=== PATIENT | male | born 1990 | race African-American/Black ===

== ENCOUNTER 2017-10-11 15:34 | Inpatient (IN) | payer MEDICAID ==
[~2017-10-11] VITALS: Ht 160 cm; Wt 51.0 kg
[2017-10-11] VITALS (7 sets, daily range): BP systolic 133–202; BP diastolic 69–123; PULSE 115–119; RESP 17–28; TEMP 97.7–98.2; O2SAT 95–99
[~2017-10-11 15:34] MED LIST: HYDR-3800 PO; LABE200T2 PO; LEVEMIR SQ; NIFE90TA2 PO; NOVO7030P2 SQ
[2017-10-11] MEDS ORDERED: AMLO10TA2 PO (16:19)
[2017-10-11] MEDS ORDERED: FOLI400T PO (16:19)
[2017-10-11] MEDS ORDERED: FURO40TA PO (16:19)
--- NOTE | 2017-10-11 16:44 | PD ---
HPI Chief Complaint: Respiratory Symptoms Time Seen by Provider: 16:17 Travel History International Travel<30 days: Yes Contact w/Intl Traveler<30days: Yes Name of Country Traveled to: [place] Traveled to known affect area: Yes History of Present Illness HPI 27-year-old male complaining of coughing congestion shortness of breath in lower extremity swelling. Patient has history of end-stage renal disease on dialysis. Patient has history of chronic kidney disease in went to [place]. Patient started having dialysis in [place]. Patient has dialysis twice a week, Wednesday and . Patient supposed to have dialysis today. Patient denies any headache. Patient denies any chest pain. Patient denies abdominal pain. Patient denies any nausea vomiting diarrhea. Patient states that he still makes small amount of urine daily. Patient's on Lasix. Patient also has history of hypertension in diabetes. Patient's on amlodipine, insulin. PFSH Past Medical History Cancer: No Congestive Heart Failure: Yes (new per BMP) Diabetes: Yes Patient Takes Glucophage: No Diminished Hearing: No Endocrine: Yes Genitourinary: Yes (ESRD, HD ) Headaches: Yes (d/t H/A) Hypertension: Yes Neurologic: No Psychiatric: No Reproductive: No Respiratory: No Tetanus Vaccination: Unknown ?: Not Past Surgical History Other Surgery: Yes (KIDNEY BIOPSY) Social History Alcohol Use: No Tobacco Use: No Substance Use: No Allergies-Medications (Allergen,Severity, Reaction): Coded Allergies: No Known Allergies (Unverified , 05/06/17) Reported Meds & Prescriptions Reported Meds & Active Scripts Active Reported Folic Acid 0.4 Mg Tab 400 Mcg PO DAILY Furosemide 40 Mg Tab 60 Mg PO BID Amlodipine (Amlodipine Besylate) 10 Mg Tab 10 Mg PO DAILY Novolin 70-30 Inj (Insulin Human Isoph/Insulin Regular) 1,000 Unit/10 Ml Vial 30 Units SQ AM 15UNITS PM Review of Systems General / Constitutional: No: Fever Eyes: No: Visual changes HENT: No: Headaches Cardiovascular: No: Chest Pain or Discomfort Respiratory: Positive: Cough, Shortness of Breath Gastrointestinal: No: Abdominal Pain Genitourinary: No: Dysuria Musculoskeletal: No: Pain Skin: No Rash Neurologic: No: Weakness Psychiatric: No: Depression Endocrine: No: Polydipsia Hematologic/Lymphatic: No: Easy Bruising Physical Exam Narrative GENERAL: Well-nourished, well-developed patient. SKIN: Focused skin assessment warm/dry. HEAD: Normocephalic. EYES: No scleral icterus. No injection or drainage. NECK: Supple, trachea midline. No JVD or lymphadenopathy. CARDIOVASCULAR: Regular rate and rhythm without murmurs, gallops, or rubs. RESPIRATORY: Breath sounds equal bilaterally. No accessory muscle use. Patient has rhonchi diffusely bilaterally mid to low lung area. GASTROINTESTINAL: Abdomen soft, non-tender, nondistended. MUSCULOSKELETAL: Patient has +2 pitting edema lower extremity. BACK: Nontender without obvious deformity. No CVA tenderness. Neurologic exam normal. Data Data Last Documented VS Vital Signs Date Time Temp Pulse Resp B/P (MAP) Pulse Ox O2 Delivery O2 Flow Rate FiO2 10/11/17 16:26 115 17 202/123 (149) 98 Nasal Cannula 2.00 10/11/17 15:36 97.7 Orders Orders Complete Blood Count With Diff (10/11/17 16:34) Basic Metabolic Panel (Bmp) (10/11/17 16:34) Magnesium (Mg) (10/11/17 16:34) Phosphorus (Po4) (10/11/17 16:34) Chest, Single Ap (10/11/17 16:34) Iv Access Insert/Monitor (10/11/17 16:34) Ecg Monitoring (10/11/17 16:34) Oximetry (10/11/17 16:34) Labs Laboratory Tests Test 10/11/17 16:40 White Blood Count 16.5 TH/MM3 Red Blood Count 3.25 MIL/MM3 Hemoglobin 8.7 GM/DL Hematocrit 26.4 % Mean Corpuscular Volume 81.2 FL Mean Corpuscular Hemoglobin 26.8 PG Mean Corpuscular Hemoglobin Concent 33.0 % Red Cell Distribution Width 15.0 % Platelet Count 320 TH/MM3 Mean Platelet Volume 8.7 FL Neutrophils (%) (Auto) 85.3 % Lymphocytes (%) (Auto) 7.1 % Monocytes (%) (Auto) 5.8 % Eosinophils (%) (Auto) 0.8 % Basophils (%) (Auto) 1.0 % Neutrophils # (Auto) 14.0 TH/MM3 Lymphocytes # (Auto) 1.2 TH/MM3 Monocytes # (Auto) 1.0 TH/MM3 Eosinophils # (Auto) 0.1 TH/MM3 Basophils # (Auto) 0.2 TH/MM3 CBC Comment AUTO DIFF Differential Comment AUTO DIFF CONFIRMED Platelet Estimate NORMAL Platelet Morphology Comment NORMAL Ovalocytes 2+ Keratocytes OCC Blood Urea Nitrogen 68 MG/DL Creatinine 12.37 MG/DL Random Glucose 392 MG/DL Calcium Level 8.8 MG/DL Phosphorus Level 3.3 MG/DL Magnesium Level 2.3 MG/DL Sodium Level 131 MEQ/L Potassium Level 4.3 MEQ/L Chloride Level 98 MEQ/L Carbon Dioxide Level 20.8 MEQ/L Anion Gap 12 MEQ/L Estimat Glomerular Filtration Rate 6 ML/MIN MDM Medical Decision Making Medical Screen Exam Complete: Yes Emergency Medical Condition: Yes Interpretation(s) Last Impressions Chest X-Ray 10/11/17 1634 Signed Impressions: Service Date/Time: Wednesday, October 11, 2017 17:01 - CONCLUSION: Cardiomegaly with moderate fluid overload. Kevan Lenz MD FACR Differential Diagnosis Differential diagnosis including pulmonary edema, bronchitis, pneumonia, Narrative Course 27-year-old male complains of coughing shortness of breath and lower extremity edema. History of end-stage renal disease on dialysis. Patient supposed to have dialysis today. Micky Quinones MD Oct 11, 2017 16:44
[2017-10-11 17:09] LABS: BASOPHIL # 0.2 TH/MM3 (0-0.2); EOSINOPHIL # 0.1 TH/MM3 (0-0.4); EOSINOPHIL % 0.8 % (0.0-4.0); HEMATOCRIT 26.4 % (39.0-51.0); HEMOGLOBIN 8.7 GM/DL (13.0-17.0); LYMPH % 7.1 % (9.0-44.0); LYMPHOCYTE # 1.2 TH/MM3 (1.0-4.8); MEAN CELL VOLUME 81.2 FL (80.0-100.0); MEAN CORPUSCULAR HEMOGLOBIN 26.8 PG (27.0-34.0); MEAN PLATELET VOLUME 8.7 FL (7.0-11.0); MONO % 5.8 % (0.0-8.0); NEUT % 85.3 % (16.0-70.0); PLATELET COUNT 320 TH/MM3 (150-450); RED BLOOD COUNT 3.25 MIL/MM3 (4.50-5.90); WHITE BLOOD COUNT 16.5 TH/MM3 (4.0-11.0)
--- NOTE | 2017-10-11 17:20 | RADRPT ---
EXAM DATE/TIME: 10/11/2017 17:01 [place] COMPARISON: CHEST SINGLE AP, April 20, 2017, 10:16. INDICATIONS : Short of breath MEDICAL HISTORY : Hypertension. Renal failure, chronic. Diabetes SURGICAL HISTORY : Infusaport ENCOUNTER: Initial ACUITY: 1 day PAIN SCORE: 0/10 LOCATION: Bilateral chest FINDINGS: Dialysis catheter in good position. Cardiomegaly with diffuse interstitial changes throughout both l ungs. No pleural effusion or pneumothorax. CONCLUSION: Cardiomegaly with moderate fluid overload. Kevan Lenz MD FACR on October 11, 2017 at 17:18 Board Certified Radiologist. This report was verified electronically.
[2017-10-11 17:48] LABS: BICARBONATE 20.8 MEQ/L (21.0-32.0); CALCIUM 8.8 MG/DL (8.5-10.1); MAGNESIUM 2.3 MG/DL (1.5-2.5); PHOSPHORUS 3.3 MG/DL (2.5-4.9)
[2017-10-11 17:52] LABS: CREATININE 12.37 MG/DL (0.60-1.30)
[2017-10-11 18:14] LABS: KERATOCYTES OCC (NORMAL)
[2017-10-11 18:16] LABS: OVALOCYTES 2+ (NORMAL)
[2017-10-11] MEDS ORDERED: hydrALAZINE HCL 20 MG/ML VIAL IV PUSH ONE (19:00)
[2017-10-11] MEDS ORDERED: SODIUM CHLOR 0.9% 1000 ML INJ 1,000 ML OTHER PRN ×2 (19:05)
[2017-10-11] MEDS ORDERED: SODIUM CHLOR 0.9% 1000 ML INJ 1,000 ML IV PRN (19:05)
[2017-10-11] MEDS ORDERED: ALBUMIN 25% INJ 100 ML IV PRN (19:15)
[2017-10-11] MEDS ORDERED: MANNITOL 12.5 GM/50 ML VIAL IV PRN (19:15)
[2017-10-11] MEDS ORDERED: HEPARIN SODIUM - IV 10,000 UNITS/10 ML VIAL IV FLUSH PRN ×2 (19:15)
[2017-10-11] MEDS ORDERED: GELATIN 12 MM/7 MM FOAM TOP PRN (19:15)
[2017-10-11] MEDS ORDERED: ACETAMINOPHEN 325 MG TAB PO PRN ×2 (19:15→19:30)
[2017-10-11] MEDS ORDERED: SODIUM CHLORIDE 0.9% FLUSH 10 ML FLUSH IV FLUSH PRN (19:15)
[2017-10-11] MEDS ORDERED: NITROGLYCERIN 0.4 MG SL 25 TABS/BTL SL PRN (19:15)
[2017-10-11] MEDS ORDERED: diphenhydrAMINE HCL 25 MG CAP PO PRN (19:15)
[2017-10-11] MEDS ORDERED: DEXTROSE 50% IN WATER 50 ML VIAL(D50) IV PUSH PRN (19:30)
[2017-10-11] MEDS ORDERED: GLUCAGON 1 MG/ML VIAL OTHER PRN (19:30)
[2017-10-11] MEDS ORDERED: NALOXONE HCL 0.4 MG/ML AMP IV PUSH PRN (19:30)
[2017-10-11] MEDS: FUROSEMIDE 20 MG TAB PO SCH (20:15)
[2017-10-11] MEDS ORDERED: CHLORHEXIDINE GLUCONATE 2 % 1 PACK (2 CLOTHS)(extra cloths) TOPICAL PRN (21:00)
--- NOTE | 2017-10-11 21:06 | HHI.HP ---
[facility] Service [facility] Primary Care Physician No Primary Care Physician Admission Diagnosis Pulmonary edema. ESRD on dialysis. Uncontrolled hypertension Diagnoses: Travel History International Travel<30 Days: Yes Contact w/Intl Traveler <30 Da: Yes Name of Country Traveled to: [place] Traveled to Known Affected Are: Yes History of Present Illness 27-year-old male with end-stage renal disease on dialysis secondary to complications from diabetes mellitus and hypertension presents to the emergency department complaining of shortness of breath and lower extremity swelling. The patient is normally dialyzed on Mondays and . He is from [place] and just moved here on Wednesday. The patient reports that he has been feeling fatigued and nauseated. He denies fever/chills. Vital signs: Temperature 97.7 , pulse 119, respirations 20, BP 202/119, pulse ox 95% on room air. Review of Systems Denies fever or chills Denies blurry vision, otorrhea, rhinorrhea Denies sore throat, positive cough No chest pain, palpitations Positive shortness of breath, no wheezing No abdominal pain Denies constipation/diarrhea. Positive nausea/vomiting Denies muscle pain Denies focal weakness No rashes Past Family Social History Past Medical History Insulin-dependent diabetes mellitus End-stage renal disease on dialysis Hypertension Past Surgical History Renal biopsy Reported Medications Reported Meds & Active Scripts Active Reported Folic Acid 0.4 Mg Tab 400 Mcg PO DAILY Furosemide 40 Mg Tab 60 Mg PO BID Amlodipine (Amlodipine Besylate) 10 Mg Tab 10 Mg PO DAILY Novolin 70-30 Inj (Insulin Human Isoph/Insulin Regular) 1,000 Unit/10 Ml Vial 30 Units SQ AM 15UNITS PM Allergies: Coded Allergies: No Known Allergies (Unverified Allergy, Unknown, 10/11/17) Family History Negative for CAD/DM Social History Denies alcohol, tobacco and illicit drugs Physical Exam Vital Signs Vital Signs Date Time Temp Pulse Resp B/P (MAP) Pulse Ox O2 Delivery O2 Flow Rate FiO2 10/11/17 20:49 121 24 133/69 (90) 99 Nasal Cannula 2.00 10/11/17 19:17 115 28 153/97 (115) 97 Nasal Cannula 2.00 10/11/17 18:54 117 19 194/123 (146) 97 Nasal Cannula 2.00 10/11/17 16:26 115 17 202/123 (149) 98 Nasal Cannula 2.00 10/11/17 16:11 115 12 99 Nasal Cannula 2.00 10/11/17 15:36 97.7 119 20 202/119 (146) 95 Physical Exam GENERAL: male lying in bed SKIN: No rashes, ecchymoses or lesions. Cool and dry. HEAD: Atraumatic. Normocephalic. No temporal or scalp tenderness. EYES: Pupils equal round and reactive. Extraocular motions intact. No scleral icterus. No injection or drainage. ENT: Nose without bleeding, purulent drainage or septal hematoma. Throat without erythema, tonsillar hypertrophy or exudate. Uvula midline. Airway patent. NECK: Trachea midline. No JVD or lymphadenopathy. Supple, nontender, no meningeal signs. CARDIOVASCULAR: Tachycardic. Regular rhythm without murmurs, gallops, or rubs. RESPIRATORY: Clear to auscultation. Breath sounds equal bilaterally. No wheezes , rales, or rhonchi. GASTROINTESTINAL: Abdomen soft, non-tender, nondistended. No hepato-splenomegaly , or palpable masses. No guarding. MUSCULOSKELETAL: 2+ pitting edema to the midshin. No calf tenderness. NEUROLOGICAL: Awake and alert. Cranial nerves II through XII intact. Motor and sensory grossly within normal limits. Normal speech. Laboratory Laboratory Tests Test 10/11/17 16:40 White Blood Count 16.5 Red Blood Count 3.25 Hemoglobin 8.7 Hematocrit 26.4 Mean Corpuscular Volume 81.2 Mean Corpuscular Hemoglobin 26.8 Mean Corpuscular Hemoglobin Concent 33.0 Red Cell Distribution Width 15.0 Platelet Count 320 Mean Platelet Volume 8.7 Neutrophils (%) (Auto) 85.3 Lymphocytes (%) (Auto) 7.1 Monocytes (%) (Auto) 5.8 Eosinophils (%) (Auto) 0.8 Basophils (%) (Auto) 1.0 Neutrophils # (Auto) 14.0 Lymphocytes # (Auto) 1.2 Monocytes # (Auto) 1.0 Eosinophils # (Auto) 0.1 Basophils # (Auto) 0.2 CBC Comment AUTO DIFF Differential Comment AUTO DIFF CONFIRMED Platelet Estimate NORMAL Platelet Morphology Comment NORMAL Ovalocytes 2+ Keratocytes OCC Blood Urea Nitrogen 68 Creatinine 12.37 Random Glucose 392 Calcium Level 8.8 Phosphorus Level 3.3 Magnesium Level 2.3 Sodium Level 131 Potassium Level 4.3 Chloride Level 98 Carbon Dioxide Level 20.8 Anion Gap 12 Estimat Glomerular Filtration Rate 6 Result Diagram: 10/11/17 1640 10/11/17 1640 Jenifer VTE Risk Assessment Capann VTE Risk Assessment: No/Low Risk (score <= 1) Caprini Risk Assessment Model Point Value = 1 Point Value = 2 Point Value = 3 Point Value = 5 Age 41-60 Minor surgery BMI > 25 kg/m2 Swollen legs Varicose veins or History of unexplained or recurrent spontaneous Oral contraceptives or hormone replacement Sepsis (< 1 month) Serious lung disease, including pneumonia (< 1 month) Abnormal pulmonary function Acute myocardial infarction Congestive heart failure (< 1 month) History of inflammatory bowel disease Medical patient at bed rest Age 61-74 Arthroscopic surgery Major open surgery (> 45 min) Laparoscopic surgery (> 45 min) Malignancy Confined to bed (> 72 hours) Immobilizing plaster cast Central venous access Age >= 75 History of VTE Family history of VTE Factor V Leiden Prothrombin [id number] Lupus anticoagulant Anticardiolipin antibodies Elevated serum homocysteine Heparin-induced thrombocytopenia Other congenital or acquired thrombophilia Stroke (< 1 month) Elective arthroplasty Hip, pelvis, or leg fracture Acute spinal cord injury (< 1 month) Prophylaxis Regimen Total Risk Factor Score Risk Level Prophylaxis Regimen 0-1 Low Early ambulation 2 Moderate Order ONE of the following: *Sequential Compression Device (SCD) *Heparin 5000 units SQ BID 3-4 Higher Order ONE of the following medications: *Heparin 5000 units SQ TID *Enoxaparin/Lovenox 40 mg SQ daily (WT < 150 kg, CrCl > 30 mL/min) *Enoxaparin/Lovenox 30 mg SQ daily (WT < 150 kg, CrCl > 10-29 mL/min) *Enoxaparin/Lovenox 30 mg SQ BID (WT < 150 kg, CrCl > 30 mL/min) AND/OR *Sequential Compression Device (SCD) 5 or more Highest Order ONE of the following medications: *Heparin 5000 units SQ TID (Preferred with Epidurals) *Enoxaparin/Lovenox 40 mg SQ daily (WT < 150 kg, CrCl > 30 mL/min) *Enoxaparin/Lovenox 30 mg SQ daily (WT < 150 kg, CrCl > 10-29 mL/min) *Enoxaparin/Lovenox 30 mg SQ BID (WT < 150 kg, CrCl > 30 mL/min) AND *Sequential Compression Device (SCD) Assessment and Plan Assessment and Plan Assessment/plan: 1. End-stage renal disease on dialysis Patient due for dialysis today Creatinine 12.37, potassium 4.3, sodium 131 Nephrology consulted, anticipate urgent dialysis 2. Leukocytosis Chest x-ray significant for cardiomegaly with moderate fluid overload, no acute process, images reviewed by me Patient reports nonproductive cough No indications for antibiotics at this time Monitor 3. Hypertension Anticipate improvement with dialysis as patient is volume overloaded Continue home amlodipine/Lasix 4. Insulin-dependent diabetes mellitus Continue home insulin SSI Monitor blood glucose FEN Renal diet Electrolytes: as above Physician Certification 2 Midnight Certification Type: Admission for Inpatient Services Order for Inpatient Services The services are ordered in accordance with Medicare regulations or non- Medicare payer requirements, as applicable. In the case of services not specified as inpatient-only, they are appropriately provided as inpatient services in accordance with the 2-midnight benchmark. Estimated LOS (days): 2 2 days is the estimated time the patient will need to remain in the hospital, assuming treatment plan goals are met and no additional complications. Post-Hospital Plan: Not yet determined Kacey George MD Oct 11, 2017 21:06
[2017-10-11] MEDS: INSULIN ASPART SUPPLEMENTAL SCALE SQ SCH (21:34)
[2017-10-11] MEDS: SODIUM CHLORIDE 0.9% FLUSH 10 ML FLUSH IV FLUSH SCH (21:34)
[2017-10-12] VITALS (16 sets, daily range): BP systolic 149–180; BP diastolic 90–110; PULSE 94–120; RESP 12–27; TEMP 97.3–99.2; O2SAT 92–100
[2017-10-12] MEDS: GENTAMICIN SULFATE 20 MG/2 ML VIAL OTHER PRN
[2017-10-12] MEDS: HEPARIN SODIUM - IV 10,000 UNITS/10 ML VIAL PRN
[2017-10-12] MEDS: CHLORHEXIDINE GLUCONATE 2 % 1 PACK (2 CLOTHS)(taper/protocol) TOPICAL SCH (01:36)
[2017-10-12] MEDS: cloNIDine HCL 0.1 MG TAB PO ONE ×2 (02:00→02:44)
[2017-10-12] MEDS: ONDANSETRON HCL 4 MG/2 ML VIAL IVP PRN ×3 (02:12→15:46)
[2017-10-12] MEDS ORDERED: LABETALOL HCL 100 MG/20 ML VIAL IV PUSH ONE (03:00)
[2017-10-12] MEDS ORDERED: TRIMETHOBENZAMIDE INJ 200 MG/2 ML VIAL IM ONE (06:45)
[2017-10-12 07:54] LABS: AUTOMATED NEUTROPHIL # 21.7 TH/MM3 (1.8-7.7); BASOPHIL # 0.1 TH/MM3 (0-0.2); BASOPHIL % 0.5 % (0.0-2.0); EOSINOPHIL % 0.1 % (0.0-4.0); HEMATOCRIT 25.3 % (39.0-51.0); HEMOGLOBIN 8.3 GM/DL (13.0-17.0); LYMPH % 4.3 % (9.0-44.0); MEAN CELL VOLUME 81.1 FL (80.0-100.0); MEAN CORPUSCULAR HEMOGLOBIN 26.8 PG (27.0-34.0); MEAN PLATELET VOLUME 8.7 FL (7.0-11.0); MONO % 2.9 % (0.0-8.0); MONOCYTE # 0.7 TH/MM3 (0-0.9); NEUT % 92.2 % (16.0-70.0); PLATELET COUNT 341 TH/MM3 (150-450); RED BLOOD COUNT 3.12 MIL/MM3 (4.50-5.90); RED CELL DISTRIBUTION WIDTH 14.5 % (11.6-17.2); WHITE BLOOD COUNT 23.5 TH/MM3 (4.0-11.0)
[2017-10-12] MEDS: INSULIN ASPART SUPPLEMENTAL SCALE SQ SCH ×4 (07:58→20:04)
[2017-10-12] MEDS: INSULIN HUMAN NPH/R 70/30 1,000 UNITS/10 ML VIAL SQ SCH ×2 (08:00→17:45)
[2017-10-12] MEDS: SODIUM CHLORIDE 0.9% FLUSH 10 ML FLUSH IV FLUSH SCH ×2 (08:00→19:33)
[2017-10-12] MEDS ORDERED: SODIUM CHLOR 0.9% 1000 ML INJ 1,000 ML IV SCH (08:15)
[2017-10-12 08:35] LABS: BICARBONATE 27.7 MEQ/L (21.0-32.0); CALCIUM 9.1 MG/DL (8.5-10.1); CREATININE 7.9 MG/DL (0.60-1.30)
[2017-10-12] MEDS: LABETALOL HCL 100 MG/20 ML VIAL IV PUSH PRN ×2 (08:43→12:50)
--- NOTE | 2017-10-12 08:58 | HHI.PR ---
Subjective Remarks Follow up nausea/vomiting, ESRD. Patient still very nauseous. Has been vomiting. Not able to take oral meds. Objective Vitals Vital Signs Date Time Temp Pulse Resp B/P (MAP) Pulse Ox O2 Delivery O2 Flow Rate FiO2 10/12/17 04:00 99.2 106 19 168/107 (127) 97 10/12/17 00:00 98.7 120 15 165/108 (127) 100 10/11/17 23:20 99 21 10/11/17 21:00 98.2 119 24 168/107 (127) 99 10/11/17 20:49 121 24 133/69 (90) 99 Nasal Cannula 2.00 10/11/17 19:17 115 28 153/97 (115) 97 Nasal Cannula 2.00 10/11/17 18:54 117 19 194/123 (146) 97 Nasal Cannula 2.00 10/11/17 16:26 115 17 202/123 (149) 98 Nasal Cannula 2.00 10/11/17 16:11 115 12 99 Nasal Cannula 2.00 10/11/17 15:36 97.7 119 20 202/119 (146) 95 I/O 10/11/17 10/11/17 10/11/17 10/12/17 10/12/17 10/12/17 07:00 15:00 23:00 07:00 15:00 23:00 Output Total 3000 ml Balance -3000 ml Output Hemodialysis 3000 ml Result Diagram: 10/12/17 0715 10/12/17 0715 Imaging Last Impressions Chest X-Ray 10/11/17 1634 Signed Impressions: Service Date/Time: Wednesday, October 11, 2017 17:01 - CONCLUSION: Cardiomegaly with moderate fluid overload. Kevan Lenz MD FACR Objective Remarks General: No acute distress. Appears uncomfortable. Heart: Tachycardic. Lungs: Clear to auscultation bilaterally. No wheezes, rales, or rhonchi. Breathing is nonlabored. Abdomen: Soft, nontender, nondistended. Extremities: No lower extremity edema. Psych: Alert and oriented. Procedures None Urinary Catheter: No Vascular Central Line Catheter: No A/P Assessment and Plan 1. End-stage renal disease: Hemodialysis per nephrology. Patient had dialysis last night. Creatinine improving. 2. Leukocytosis: No apparent infection. Monitor labs. Possibly stress reaction. 3. Hypertension: Blood pressure remains elevated. Labetalol as needed. Patient unable to take his home medications as he is not tolerating anything by mouth. 4. Diabetes mellitus, insulin-dependent: Continue 70/30 insulin. Monitor Accu- Cheks and cover with sliding scale insulin. 5. Nausea/vomiting: Continue antiemetics. Gentle IV fluids for maintenance until able to tolerate by mouth. 6. DVT prophylaxis: Chyna, PIETRO latif. Manpreet Maldonado MD Oct 12, 2017 08:57
[2017-10-12] MEDS: FOLIC ACID 1 MG TAB PO SCH (09:00)
[2017-10-12] MEDS: FUROSEMIDE 20 MG TAB PO SCH (09:00)
--- NOTE | 2017-10-12 11:20 | PD.CONS ---
HPI Service Nephrology Consult Requested By Dr. George Reason for Consult ESRD, HD management Primary Care Physician No Primary Care Physician History of Present Illness The patient is a 27 yo [facility] male with PMHx of ESRD on HD, IDDM since age 10 & hypertension who presented to this facility on 10/11 with his mother with complaints of SOB, edema, fatigue, weakness, and nausea. Is ESRD and been receiving HD [facility] and at a facility in [place]. Last outpatient tx this past . States that he moved here on Wednesday without any dialysis arrangements. Mother claims they have been trying to get him into a local unit, but without success. He was admitted at this facility this past April with ARF and accelerated hypertension. Given his severe renal impairment, he underwent a kidney biopsy that confirmed diabetic nephropathy as well as glomerulosclerosis. He was started on HD in [place] in late August/early September. Is moving here permanently with his mother and is in need of dialysis arrangements locally. Currently, the patient is weak and fatigued. He received emergent HD last night given his pulmonary edema. BP has been quite elevated. Unable to tolerate po medications and is currently on Labetalol IV for BP control. (Lety Briggs) Review of Systems Constitutional: COMPLAINS OF: Fatigue Respiratory: COMPLAINS OF: Shortness of breath Cardiovascular: COMPLAINS OF: Lower Extremity Edema Gastrointestinal: COMPLAINS OF: Nausea, Vomiting (Lety Briggs) Past Family Social History Allergies: Coded Allergies: No Known Allergies (Unverified Allergy, Unknown, 10/11/17) Past Medical History ESRD on HD IDDM since age 10 HTN Past Surgical History Kidney biopsy April 2017 Reported Medications Folic Acid 0.4 Mg Tab 400 Mcg PO DAILY Furosemide 40 Mg Tab 60 Mg PO BID Amlodipine (Amlodipine Besylate) 10 Mg Tab 10 Mg PO DAILY Novolin 70-30 Inj (Insulin Human Isoph/Insulin Regular) 1,000 Unit/10 Ml Vial 30 Units SQ AM 15UNITS PM Active Ordered Medications Current Medications Medications (Trade) Dose Ordered Sig/Ovi Route Start Time Stop Time Status Last Admin Sodium Chloride 1,000 ml @ 0 mls/hr Q0M PRN OTHER 10/11/17 19:05 10/12/17 00:00 (Heparin Inj) 8,000 units UNSCH PRN IV FLUSH 10/11/17 19:15 (Heparin Inj) 1,000 units Q1H PRN IV FLUSH 10/11/17 19:15 Sodium Chloride 1,000 ml @ 200 mls/hr Q5H PRN IV 10/11/17 19:05 Sodium Chloride 1,000 ml @ 0 mls/hr Q0M PRN OTHER 10/11/17 19:05 (Mannitol Inj) 12.5 gm UNSCH PRN IV 10/11/17 19:15 Albumin Human 100 ml @ 60 mls/hr UNSCH PRN IV 10/11/17 19:15 (NS Flush) 5 ml UNSCH PRN IV FLUSH 10/11/17 19:15 (Heparin Inj) UNSCH PRN .XX 10/11/17 19:15 10/12/17 00:00 (Gentamicin (Dialysis) Inj) 20 mg UNSCH PRN OTHER 10/11/17 19:15 10/12/17 00:00 (Zofran Inj) 4 mg UNSCH PRN IV PUSH 10/11/17 19:15 (Tylenol) 650 mg UNSCH PRN PO 10/11/17 19:15 (Benadryl) 25 mg UNSCH PRN PO 10/11/17 19:15 (Nitrostat Sl) 0.4 mg UNSCH PRN SL 10/11/17 19:15 (Catapres) 0.1 mg UNSCH PRN PO 10/11/17 19:15 (Gelfoam 12 Mm/7 Mm Top) 1 foam UNSCH PRN TOP 10/11/17 19:15 (NS Flush) 2 ml UNSCH PRN IV FLUSH 10/11/17 19:30 (NS Flush) 2 ml BID IV FLUSH 10/11/17 21:00 10/12/17 08:00 (Tylenol) 650 mg Q4H PRN PO 10/11/17 19:30 (Zofran Inj) 4 mg Q6H PRN IVP 10/11/17 19:30 10/12/17 07:59 (Narcan Inj) 0.4 mg UNSCH PRN IV PUSH 10/11/17 19:30 (D50w (Vial) Inj) 50 ml UNSCH PRN IV PUSH 10/11/17 19:30 10/12/17 02:09 (Glucagon Inj) 1 mg UNSCH PRN OTHER 10/11/17 19:30 (NovoLOG SUPPLEMENTAL SCALE) 1 ACHS SLIDING SCALE SQ 10/11/17 21:00 10/11/17 21:34 (Norvasc) 10 mg DAILY PO 10/12/17 09:00 (Folate) 0.5 mg DAILY PO 10/12/17 09:00 (Lasix) 60 mg DAILY@0900,1800 PO 10/11/17 20:15 Future Hold 10/11/17 20:15 (NovoLIN 70/30 INJ) 15 units DAILY@0800,1700 SQ 10/12/17 08:00 Miscellaneous Information Patient in critical care unit? Ass... Q361D .XX 10/11/17 21:00 10/11/17 21:00 (Chlorhexidine 2% Cloth) 3 pack DAILY@04 TOPICAL 10/12/17 04:00 10/16/17 04:01 10/12/17 01:36 (Chlorhexidine 2% Cloth) 3 pack UNSCH PRN TOPICAL 10/11/17 21:00 10/16/17 20:57 Sodium Chloride 1,000 ml @ 42 mls/hr [id number] IV 10/12/17 08:15 (Trandate Inj) 10 mg Q4H PRN IV PUSH 10/12/17 08:15 10/12/17 08:43 Family History [place] Social History Previously lived in [place]. Claims to have moved here just this past Wednesday Denies tobacco Denies EtOH Denies illicits (Lety Briggs) Physical Exam Vital Signs Vital Signs Date Time Temp Pulse Resp B/P (MAP) Pulse Ox O2 Delivery O2 Flow Rate FiO2 10/12/17 04:00 99.2 106 19 168/107 (127) 97 10/12/17 00:00 98.7 120 15 165/108 (127) 100 10/11/17 23:20 99 21 10/11/17 21:00 98.2 119 24 168/107 (127) 99 10/11/17 20:49 121 24 133/69 (90) 99 Nasal Cannula 2.00 10/11/17 19:17 115 28 153/97 (115) 97 Nasal Cannula 2.00 10/11/17 18:54 117 19 194/123 (146) 97 Nasal Cannula 2.00 1/22/18 16:26 115 17 202/123 (149) 98 Nasal Cannula 2.00 10/11/17 16:11 115 12 99 Nasal Cannula 2.00 10/11/17 15:36 97.7 119 20 202/119 (146) 95 Physical Exam GENERAL: Laying in bed resting. Does answer questions when spoken to, but mostly leaves to mother to answer. SKIN: Warm and dry. HEAD: Atraumatic. Normocephalic. EYES: Pupils equal and round. No scleral icterus. No injection or drainage. ENT: No nasal bleeding or discharge. Mucous membranes pink and moist. NECK: Trachea midline. No JVD. RIJ VasCath present CARDIOVASCULAR: Tachycardic with regular rhythm. RESPIRATORY: No accessory muscle use. Rales present bibasilar. GASTROINTESTINAL: Abdomen soft, non-tender, nondistended. Hepatic and splenic margins not palpable. MUSCULOSKELETAL: Extremities without clubbing, cyanosis, 1+ pitting edema bipedal with trace pretibial. PSYCHIATRIC: Appropriate mood and affect; insight and judgment normal. Laboratory Laboratory Tests Test 10/11/17 16:40 10/11/17 20:45 10/12/17 07:15 White Blood Count 16.5 23.5 Red Blood Count 3.25 3.12 Hemoglobin 8.7 8.3 Hematocrit 26.4 25.3 Mean Corpuscular Volume 81.2 81.1 Mean Corpuscular Hemoglobin 26.8 26.8 Mean Corpuscular Hemoglobin Concent 33.0 33.0 Red Cell Distribution Width 15.0 14.5 Platelet Count 320 341 Mean Platelet Volume 8.7 8.7 Neutrophils (%) (Auto) 85.3 92.2 Lymphocytes (%) (Auto) 7.1 4.3 Monocytes (%) (Auto) 5.8 2.9 Eosinophils (%) (Auto) 0.8 0.1 Basophils (%) (Auto) 1.0 0.5 Neutrophils # (Auto) 14.0 21.7 Lymphocytes # (Auto) 1.2 1.0 Monocytes # (Auto) 1.0 0.7 Eosinophils # (Auto) 0.1 0.0 Basophils # (Auto) 0.2 0.1 CBC Comment AUTO DIFF DIFF FINAL Differential Comment AUTO DIFF CONFIRMED Platelet Estimate NORMAL Platelet Morphology Comment NORMAL Ovalocytes 2+ Keratocytes OCC Blood Urea Nitrogen 68 37 Creatinine 12.37 7.90 Random Glucose 392 116 Calcium Level 8.8 9.1 Phosphorus Level 3.3 Magnesium Level 2.3 Sodium Level 131 137 Potassium Level 4.3 3.6 Chloride Level 98 100 Carbon Dioxide Level 20.8 27.7 Anion Gap 12 9 Estimat Glomerular Filtration Rate 6 10 Nasal Screen MRSA (PCR) MRSA NOT DETECTED (Lety Briggs) Result Diagram: 10/12/17 0715 10/12/17 0715 Imaging Last Impressions Chest X-Ray 10/11/17 1634 Signed Impressions: Service Date/Time: Wednesday, October 11, 2017 17:01 - CONCLUSION: Cardiomegaly with moderate fluid overload. Kevan Lenz MD FACR (Lety Briggs) Assessment and Plan Problem List: (1) ESRD (end stage renal disease) on dialysis ICD Codes: N18.6 - End stage renal disease; Z99.2 - Dependence on renal dialysis Plan: Last outpatient HD 10/07. Moved to the area from [place] without dialysis plans in order. Received HD last evening with UF of 3L and appears to have tolerated tx well. Reports he only does HD 2 days per week. Does not make much urine. D/C IVF Will plan on HD tomorrow for additional fluid removal. Check iPTH, Vit D, and Phos. Dialyzing via VasCath and will need to have changed to PermCath before discharge. Elevated WBC, tachycardic. Check LA. Will check BCx as well and give empiric abx for coverage. Medications should be adjusted for the patient's ESRD. Avoid gadolinium. (2) Pulmonary edema ICD Codes: J81.1 - Chronic pulmonary edema Plan: Related to noncompliance with HD. Received HD last night HD again tomorrow. Will likely increase treatment to 3 days per week Fluid restrictions (3) IDDM (insulin dependent diabetes mellitus) ICD Codes: E11.9 - Type 2 diabetes mellitus without complications; Z79.4 - care home (current) use of insulin Plan: Management as per primary team (4) Hypertension ICD Codes: I10 - Essential (primary) hypertension Plan: Not tolerating po medications. On IV Labetalol. Will add IV Hydralazine as needed. Consider Clonidine patch (5) Leukocytosis ICD Codes: D72.829 - Elevated white blood cell count, unspecified Plan: As above, concerning for dialysis line infection. (6) Anemia ICD Codes: D64.9 - Anemia, unspecified Status: Acute Plan: Repeat CBC with iron panel. May need Epogen with HD (Lety Briggs) Assessment and Plan The exam, history, and the medical decision-making described in the above note were completed with the assistance of the PAMaryan. I reviewed and agree with the findings presented. I attest that I had a [id number] encounter with the patient on the same day, and personally performed and documented my assessment and findings in the medical record. (Alyson Cantu MD) Lety Briggs Oct 12, 2017 11:20 Alyson Cantu MD Oct 12, 2017 12:12
[2017-10-12] MEDS ORDERED: VANCOMYCIN 1 GM/200 ML INJ 200 ML IV ONE (12:30)
[2017-10-12] MEDS ORDERED: PIPERACIL-TAZO 3.375 GM PREMIX 50 ML IV ONE (13:15)
[2017-10-12] MEDS ORDERED: VANCOMYCIN 1,000 MG/NS 250 ML IV ONE ×2 (13:15)
[2017-10-12] MEDS: hydrALAZINE HCL 20 MG/ML VIAL IV PUSH PRN ×2 (14:20→20:04)
[2017-10-12] MEDS: SODIUM CHLORIDE 0.9% FLUSH 10 ML FLUSH IV FLUSH PRN (14:21)
[2017-10-12 16:22] LABS: IRON (FE) 40 MCG/DL (65-175); PHOSPHORUS 6.3 MG/DL (2.5-4.9); TOTAL IRON BINDING CAPACITY 223 MCG/DL (250-450)
[2017-10-12 16:25] LABS: FERRITIN 1043 NG/ML (26-388)
[2017-10-12] MEDS: PIPERACIL-TAZO 2.25 GM PREMIX 50 ML IV SCH (19:33)
[2017-10-12] MEDS: TRIMETHOBENZAMIDE INJ 200 MG/2 ML VIAL IM PRN (21:37)
[2017-10-13] VITALS (13 sets, daily range): BP systolic 157–174; BP diastolic 96–109; PULSE 103–116; RESP 12–21; TEMP 97.9–99; O2SAT 96–99
[2017-10-13] MEDS: hydrALAZINE HCL 20 MG/ML VIAL IV PUSH PRN ×5 (00:05→22:15)
[2017-10-13] MEDS: CHLORHEXIDINE GLUCONATE 2 % 1 PACK (2 CLOTHS)(taper/protocol) TOPICAL SCH (00:05)
[2017-10-13] MEDS ORDERED: PROCHLORPERAZINE INJ 10 MG/2 ML VIAL IV PUSH ONE (01:30)
[2017-10-13] MEDS: LABETALOL HCL 100 MG/20 ML VIAL IV PUSH PRN ×3 (03:05→19:04)
[2017-10-13 06:11] LABS: PROTHROMBIN TIME - PATIENT 10.6 SEC (9.8-11.6)
[2017-10-13 06:20] LABS: ALBUMIN 2.2 GM/DL (3.4-5.0); ALKALINE PHOSPHATASE 123 U/L (45-117); ALT (GPT) 36 U/L (12-78); AST (GOT) 28 U/L (15-37); BICARBONATE 28.1 MEQ/L (21.0-32.0); BLOOD UREA NITROGEN 55 MG/DL (7-18); CALCIUM 8.9 MG/DL (8.5-10.1); CHLORIDE 97 MEQ/L (98-107); GLOMERULAR FILTRATION RATE 8 ML/MIN (>89); GLUCOSE,RANDOM 79 MG/DL (74-106); MAGNESIUM 2.6 MG/DL (1.5-2.5); PHOSPHORUS 6.1 MG/DL (2.5-4.9); SODIUM (NA) 138 MEQ/L (136-145); TOTAL BILIRUBIN ADULT 0.6 MG/DL (0.2-1.0); TOTAL PROTEIN 6.7 GM/DL (6.4-8.2)
[2017-10-13 06:23] LABS: CREATININE 10.13 MG/DL (0.60-1.30)
[2017-10-13 06:35] LABS: AUTOMATED NEUTROPHIL # 18.1 TH/MM3 (1.8-7.7); BASOPHIL # 0.2 TH/MM3 (0-0.2); BASOPHIL % 0.7 % (0.0-2.0); EOSINOPHIL % 0.1 % (0.0-4.0); HEMATOCRIT 24.6 % (39.0-51.0); HEMOGLOBIN 7.8 GM/DL (13.0-17.0); LYMPH % 5.5 % (9.0-44.0); LYMPHOCYTE # 1.1 TH/MM3 (1.0-4.8); MEAN CELL VOLUME 81.5 FL (80.0-100.0); MEAN CORPUSCULAR HEMOGLOBIN 25.8 PG (27.0-34.0); MEAN CORPUSCULAR HGB CONC 31.7 % (32.0-36.0); MEAN PLATELET VOLUME 8.7 FL (7.0-11.0); MONO % 6.2 % (0.0-8.0); MONOCYTE # 1.3 TH/MM3 (0-0.9); NEUT % 87.5 % (16.0-70.0); PLATELET COUNT 333 TH/MM3 (150-450); RED BLOOD COUNT 3.02 MIL/MM3 (4.50-5.90); RED CELL DISTRIBUTION WIDTH 14.8 % (11.6-17.2); WHITE BLOOD COUNT 20.6 TH/MM3 (4.0-11.0)
[2017-10-13] MEDS: INSULIN HUMAN NPH/R 70/30 1,000 UNITS/10 ML VIAL SQ SCH ×2 (08:00→17:00)
[2017-10-13] MEDS: INSULIN ASPART SUPPLEMENTAL SCALE SQ SCH ×3 (08:00→17:00)
[2017-10-13] MEDS: PIPERACIL-TAZO 2.25 GM PREMIX 50 ML IV SCH ×2 (08:09→22:16)
[2017-10-13] MEDS: SODIUM CHLORIDE 0.9% FLUSH 10 ML FLUSH IV FLUSH SCH ×2 (08:09→22:16)
[2017-10-13] MEDS: FOLIC ACID 1 MG TAB PO SCH (08:12)
[2017-10-13 08:27] LABS: BASOPHILS 2 % (0-2); LYMPHOCYTES 5 % (9-44); MONOCYTES 3 % (0-8); NEUTROPHIL # MANUAL DIFF 18.3 TH/MM3 (1.8-7.7); PLASMA CELLS 1 % (0-0); POLYS (SEG NEUTROPHILS) 89 % (16-70)
[2017-10-13 08:28] LABS: OVALOCYTES 2+ (NORMAL)
[2017-10-13 08:30] LABS: KERATOCYTES 1+ (NORMAL)
--- NOTE | 2017-10-13 08:47 | HHI.PR ---
Subjective Remarks Follow up nausea/vomiting, ESRD. Patient states that he feels a little better today. Still with nausea/vomiting overnight. No other complaints at this time. Heart rate and BP remain elevated. Objective Vitals Vital Signs Date Time Temp Pulse Resp B/P (MAP) Pulse Ox O2 Delivery O2 Flow Rate FiO2 10/13/17 06:00 110 10/13/17 04:00 103 10/13/17 04:00 97.9 103 12 159/106 (123) 96 10/13/17 02:00 114 10/13/17 00:00 98.0 116 13 165/103 (123) 96 10/13/17 00:00 116 10/12/17 22:00 114 10/12/17 20:00 97.3 110 12 167/108 (127) 97 10/12/17 20:00 110 10/12/17 19:08 99 21 10/12/17 16:00 98.9 108 18 149/90 (109) 97 10/12/17 15:00 112 17 153/94 (113) 95 10/12/17 14:24 104 14 180/110 (133) 95 10/12/17 13:00 94 24 166/106 (126) 95 10/12/17 12:00 98.6 106 13 174/103 (126) 94 10/12/17 11:00 104 12 173/106 (128) 97 10/12/17 10:00 104 20 165/103 (123) 98 10/12/17 09:00 101 15 160/104 (122) 94 I/O 10/12/17 10/12/17 10/12/17 10/13/17 10/13/17 10/13/17 07:00 15:00 23:00 07:00 15:00 23:00 Intake Total 300 ml 100 ml Output Total 3000 ml 1000 ml 0 ml Balance -3000 ml -700 ml 100 ml Intake Oral 0 ml 100 ml IV Total 300 ml Output Urine Total 0 ml 0 ml Emesis 1000 ml Hemodialysis 3000 ml # Bowel Movements 0 Result Diagram: 10/13/17 0539 10/13/17 0539 Imaging Last Impressions Chest X-Ray 10/11/17 1634 Signed Impressions: Service Date/Time: Wednesday, October 11, 2017 17:01 - CONCLUSION: Cardiomegaly with moderate fluid overload. Kevan Lenz MD FACR Objective Remarks General: No acute distress. Resting comfortably. Heart: Tachycardic. Lungs: Clear to auscultation bilaterally. No wheezes, rales, or rhonchi. Breathing is nonlabored. Abdomen: Soft, nontender, nondistended. Extremities: No lower extremity edema. Psych: Sleeping, but awakens and answers questions. Procedures None Urinary Catheter: No Vascular Central Line Catheter: No A/P Assessment and Plan 1. End-stage renal disease: Hemodialysis per nephrology. 2. Leukocytosis: ? dialysis line infection. Monitor labs. Cultures are pending. 3. Hypertension: Blood pressure remains elevated. Labetalol, hydralazine as needed. Patient unable to take his home medications as he is not tolerating anything by mouth. 4. Diabetes mellitus, insulin-dependent: Continue 70/30 insulin. Monitor Accu- Cheks and cover with sliding scale insulin. 5. Nausea/vomiting: Continue antiemetics. 6. DVT prophylaxis: PIETRO Clemente. Manpreet Maldonado MD Oct 13, 2017 08:47
[2017-10-13 10:31] LABS: HEPATITIS B SURFACE ANTIGEN NEGATIVE (NEGATIVE); HEPATITIS C AB IgG NEGATIVE (NEGATIVE)
[2017-10-13] MEDS: ONDANSETRON HCL 4 MG/2 ML VIAL IV PUSH PRN (13:04)
[2017-10-13] MEDS: GENTAMICIN SULFATE 20 MG/2 ML VIAL OTHER PRN (14:17)
[2017-10-13] MEDS: HEPARIN SODIUM - IV 10,000 UNITS/10 ML VIAL PRN (14:17)
[2017-10-13] MEDS: VANCOMYCIN INJ 1,000 MG in SODIUM CHLOR 0.9% 250 ML INJ 250 ML IV SCH (15:13)
--- NOTE | 2017-10-13 15:56 | HHI.NPPN ---
Subjective History of Present Illness The patient is a 27 yo [facility] male with PMHx of ESRD on HD, IDDM since age 10 & hypertension who presented to this facility on 10/11 with his mother with complaints of SOB, edema, fatigue, weakness, and nausea. Is ESRD and been [facility] HD [facility] and at a facility in [place]. Last outpatient tx this past . States that he moved here on Wednesday without any dialysis arrangements. Mother claims they have been trying to get him into a local unit, but without success. He was admitted at this facility this past April with ARF and accelerated hypertension. Given his severe renal impairment, he underwent a kidney biopsy that confirmed diabetic nephropathy as well as glomerulosclerosis. He was started on HD in [place] in late August/early September. Is moving here permanently with his mother and is in need of dialysis arrangements locally. Currently, the patient is weak and fatigued. He received emergent HD last night given his pulmonary edema. BP has been quite elevated. Unable to tolerate po medications and is currently on Labetalol IV for BP control. Interval History Pt seen during HD today. Still very lethargic. Still with nausea and emesis (Lety Briggs) Review of Systems General Constitutional: Fatigue (Lety Briggs) Gastrointestinal Gastrointestinal: Nausea & Vomiting (Lety Briggs) Objective Data Data 10/13/17 10/14/17 19:00 07:00 Intake Total 250 ml Output Total 2500 ml Balance -2250 ml IV Total 250 ml Hemodialysis 2500 ml Vital Signs Date Time Temp Pulse Resp B/P (MAP) Pulse Ox O2 Delivery O2 Flow Rate FiO2 10/13/17 14:00 104 10/13/17 12:00 111 10/13/17 12:00 98.6 111 21 171/102 (125) 99 10/13/17 10:00 108 10/13/17 08:00 98.6 109 12 174/109 (130) 97 10/13/17 08:00 109 10/13/17 06:00 110 10/13/17 04:00 103 10/13/17 04:00 97.9 103 12 159/106 (123) 96 10/13/17 02:00 114 10/13/17 00:00 98.0 116 13 165/103 (123) 96 10/13/17 00:00 116 10/12/17 22:00 114 10/12/17 20:00 97.3 110 12 167/108 (127) 97 10/12/17 20:00 110 10/12/17 19:08 99 21 10/12/17 16:00 98.9 108 18 149/90 (109) 97 (Lety Briggs) -: 10/13/17 0539 10/13/17 0539 Imaging Last Impressions Chest X-Ray 10/11/17 1634 Signed Impressions: Service Date/Time: Wednesday, October 11, 2017 17:01 - CONCLUSION: Cardiomegaly with moderate fluid overload. Kevan Lenz MD FACR Medication Review Current Medications Medications (Trade) Dose Ordered Sig/Ovi Route Start Time Stop Time Status Last Admin Sodium Chloride 1,000 ml @ 0 mls/hr Q0M PRN OTHER 10/11/17 19:05 10/12/17 00:00 (Heparin Inj) 8,000 units UNSCH PRN IV FLUSH 10/11/17 19:15 (Heparin Inj) 1,000 units Q1H PRN IV FLUSH 10/11/17 19:15 Sodium Chloride 1,000 ml @ 200 mls/hr Q5H PRN IV 10/11/17 19:05 Sodium Chloride 1,000 ml @ 0 mls/hr Q0M PRN OTHER 10/11/17 19:05 (Mannitol Inj) 12.5 gm UNSCH PRN IV 10/11/17 19:15 Albumin Human 100 ml @ 60 mls/hr UNSCH PRN IV 10/11/17 19:15 (NS Flush) 5 ml UNSCH PRN IV FLUSH 10/11/17 19:15 (Heparin Inj) UNSCH PRN .XX 10/11/17 19:15 10/13/17 14:17 (Gentamicin (Dialysis) Inj) 20 mg UNSCH PRN OTHER 10/11/17 19:15 10/13/17 14:17 (Zofran Inj) 4 mg UNSCH PRN IV PUSH 10/11/17 19:15 10/13/17 13:04 (Tylenol) 650 mg UNSCH PRN PO 10/11/17 19:15 (Benadryl) 25 mg UNSCH PRN PO 10/11/17 19:15 (Nitrostat Sl) 0.4 mg UNSCH PRN SL 10/11/17 19:15 (Catapres) 0.1 mg UNSCH PRN PO 10/11/17 19:15 (Gelfoam 12 Mm/7 Mm Top) 1 foam UNSCH PRN TOP 10/11/17 19:15 (NS Flush) 2 ml UNSCH PRN IV FLUSH 10/11/17 19:30 10/12/17 14:21 (NS Flush) 2 ml BID IV FLUSH 10/11/17 21:00 10/13/17 08:09 (Tylenol) 650 mg Q4H PRN PO 10/11/17 19:30 (Zofran Inj) 4 mg Q6H PRN IVP 10/11/17 19:30 10/12/17 15:46 (Narcan Inj) 0.4 mg UNSCH PRN IV PUSH 10/11/17 19:30 (D50w (Vial) Inj) 50 ml UNSCH PRN IV PUSH 10/11/17 19:30 10/12/17 02:09 (Glucagon Inj) 1 mg UNSCH PRN OTHER 10/11/17 19:30 (NovoLOG SUPPLEMENTAL SCALE) 1 ACHS SLIDING SCALE SQ 10/11/17 21:00 10/11/17 21:34 (Norvasc) 10 mg DAILY PO 10/12/17 09:00 (Folate) 0.5 mg DAILY PO 10/12/17 09:00 (Lasix) 60 mg DAILY@0900,1800 PO 10/11/17 20:15 Future Hold 10/11/17 20:15 (NovoLIN 70/30 INJ) 15 units DAILY@0800,1700 SQ 10/12/17 08:00 10/12/17 17:45 Miscellaneous Information Patient in critical care unit? Ass... Q361D .XX 10/11/17 21:00 10/11/17 21:00 (Chlorhexidine 2% Cloth) 3 pack DAILY@04 TOPICAL 10/12/17 04:00 10/16/17 04:01 10/13/17 00:05 (Chlorhexidine 2% Cloth) 3 pack UNSCH PRN TOPICAL 10/11/17 21:00 10/16/17 20:57 (Trandate Inj) 10 mg Q4H PRN IV PUSH 10/12/17 08:15 10/13/17 12:55 Piperacillin Sod/ Tazobactam Sod 50 ml @ 100 mls/hr Q12H IV 10/12/17 20:00 10/13/17 08:09 (Apresoline Inj) 20 mg Q4H PRN IV PUSH 10/12/17 13:15 10/13/17 15:43 (Tigan Inj) 200 mg Q6H PRN IM 10/12/17 16:45 10/12/17 21:37 Vancomycin HCl 1000 mg/Sodium Chloride 250 ml @ 250 mls/hr WITH DIALYSIS IV 10/13/17 14:30 10/13/17 15:13 (Epogen Inj) 10,000 units UNSCH PRN IV PUSH 10/13/17 14:30 (Lety Briggs) Physical Exam General Appearance: No Acute Distress, Comfortable (Lety Briggs) Neck Neck Exam: Neck Supple (Lety Briggs) Pulmonary Resp Exam: Clear Bilaterally, Breath Sounds Equal (Lety Briggs) Cardiology CV Exam: Regular, Normal Sinus Rhythm (Lety Briggs) Gastrointestinal/Abdomen GI Exam: Soft GI Remarks Tenderness to palpation RUQ (Lety Briggs) Integumentary Skin Exam: Clear, Warm (Lety Briggs) Extremeties Extremities Exam: Trace Edema (bipedal) (Lety Briggs) Neurologic Neuro Exam: Awake (but drowsy.) (Lety Briggs) Assessment/Plan Problem List: (1) ESRD (end stage renal disease) on dialysis ICD Codes: N18.6 - End stage renal disease; Z99.2 - Dependence on renal dialysis Plan: Seen during HD today. Access working well. BCx neg x24h Will continue on Vanc and Zosyn until BCx neg x72h. If BCx neg, will plan for VasCath exchange to PermCath prior to his discharge. If BCx positive, will plan for removal of VasCath. Start on PhosLo for hyperphosphatemia. Start on Ergocalciferol for Vit D deficiency. Medications should be adjusted for the patient's ESRD. Avoid gadolinium. (2) Pulmonary edema ICD Codes: J81.1 - Chronic pulmonary edema Plan: Will improve with HD (3) IDDM (insulin dependent diabetes mellitus) ICD Codes: E11.9 - Type 2 diabetes mellitus without complications; Z79.4 - group home (current) use of insulin Plan: Management as per primary team (4) Hypertension ICD Codes: I10 - Essential (primary) hypertension Plan: Not tolerating po medications. Continue IV Labetalol and Hydralazine. As he is still not tolerating po, will start on Clonidine patch (5) Leukocytosis ICD Codes: D72.829 - Elevated white blood cell count, unspecified Plan: BCx remain negative. Would likely benefit from ID consultation. Given his RUQ tenderness to palpation, will order imaging (6) Anemia ICD Codes: D64.9 - Anemia, unspecified Status: Acute Plan: Fe low. Given potential infection, will hold off on Venofer infusion at the present. Ordered stool cards. Epogen ordered with HD. (Lety Briggs) Plan The exam, history, and the medical decision-making described in the above note were completed with the assistance of the PA-C. I reviewed and agree with the findings presented. I will be providing inpatient services for this patient during this admission only. accounting manager to determine her what long-term options are available for the patient for outpatient care. A science technician will have to be provided for the patient post discharge. (Alyson Cantu MD) Lety Briggs Oct 13, 2017 15:56 Alyson Cantu MD Oct 13, 2017 16:05
[2017-10-13] MEDS ORDERED: cloNIDine HCL 0.1 MG/24 HR PATCH T-DERMAL SCH (17:00)
[2017-10-13] MEDS: CALCIUM ACETATE 667 MG CAP PO SCH (17:29)
[2017-10-13] MEDS: ONDANSETRON HCL 4 MG/2 ML VIAL IVP PRN (22:16)
[2017-10-14] VITALS (13 sets, daily range): BP systolic 169–194; BP diastolic 99–119; PULSE 96–110; RESP 12–24; TEMP 98.1–99; O2SAT 96–100
[2017-10-14] MEDS: LABETALOL HCL 100 MG/20 ML VIAL IV PUSH PRN ×4 (01:06→18:26)
[2017-10-14] MEDS: CHLORHEXIDINE GLUCONATE 2 % 1 PACK (2 CLOTHS)(taper/protocol) TOPICAL SCH (04:00)
[2017-10-14 05:20] LABS: AUTOMATED NEUTROPHIL # 12.9 TH/MM3 (1.8-7.7); BASOPHIL # 0.2 TH/MM3 (0-0.2); BASOPHIL % 1.2 % (0.0-2.0); EOSINOPHIL # 0.1 TH/MM3 (0-0.4); EOSINOPHIL % 0.3 % (0.0-4.0); HEMATOCRIT 24.9 % (39.0-51.0); HEMOGLOBIN 8.1 GM/DL (13.0-17.0); LYMPH % 8.3 % (9.0-44.0); LYMPHOCYTE # 1.3 TH/MM3 (1.0-4.8); MEAN CELL VOLUME 79.4 FL (80.0-100.0); MEAN CORPUSCULAR HEMOGLOBIN 25.8 PG (27.0-34.0); MEAN CORPUSCULAR HGB CONC 32.6 % (32.0-36.0); MEAN PLATELET VOLUME 8.7 FL (7.0-11.0); MONO % 7.3 % (0.0-8.0); MONOCYTE # 1.1 TH/MM3 (0-0.9); NEUT % 82.9 % (16.0-70.0); PLATELET COUNT 386 TH/MM3 (150-450); RED BLOOD COUNT 3.14 MIL/MM3 (4.50-5.90); RED CELL DISTRIBUTION WIDTH 14.4 % (11.6-17.2); WHITE BLOOD COUNT 15.6 TH/MM3 (4.0-11.0)
[2017-10-14 05:47] LABS: BICARBONATE 30.5 MEQ/L (21.0-32.0); CALCIUM 8.3 MG/DL (8.5-10.1); CREATININE 7.15 MG/DL (0.60-1.30)
[2017-10-14 07:59] LABS: KERATOCYTES OCC (NORMAL); OVALOCYTES 1+ (NORMAL); TEARDROP RBCS 1+ (NORMAL)
[2017-10-14] MEDS: INSULIN ASPART SUPPLEMENTAL SCALE SQ SCH ×4 (08:00→21:00)
[2017-10-14] MEDS: FOLIC ACID 1 MG TAB PO SCH (08:46)
[2017-10-14] MEDS: SODIUM CHLORIDE 0.9% FLUSH 10 ML FLUSH IV FLUSH SCH ×2 (08:46→22:23)
[2017-10-14] MEDS: CALCIUM ACETATE 667 MG CAP PO SCH ×3 (08:46→18:00)
[2017-10-14] MEDS: INSULIN HUMAN NPH/R 70/30 1,000 UNITS/10 ML VIAL SQ SCH ×2 (08:47→17:00)
[2017-10-14] MEDS: PIPERACIL-TAZO 2.25 GM PREMIX 50 ML IV SCH ×2 (08:52→22:24)
[2017-10-14] MEDS: ONDANSETRON HCL 4 MG/2 ML VIAL IV PUSH PRN (09:05)
[2017-10-14] MEDS: hydrALAZINE HCL 20 MG/ML VIAL IV PUSH PRN ×3 (09:05→22:23)
--- NOTE | 2017-10-14 09:13 | RADRPT ---
EXAM DATE/TIME: 10/14/2017 07:47 [place] COMPARISON: CHEST SINGLE AP, October 11, 2017, 17:01. INDICATIONS : Abdominal pain. Nausea/vomiting. MEDICAL HISTORY : Congestive heart failure. Hypertension. Dyspnea. ESRD. Diabetes. SURGICAL HISTORY : Kidney biopsy. ENCOUNTER: Initial ACUITY: 3 days PAIN SCORE: 6/10 LOCATION: Abdomen. MEASUREMENTS: LIVER: 14.7 cm length COMMON DUCT: 2 mm RIGHT KIDNEY: 9.0 x 5.8 x 3.8 cm LEFT KIDNEY: 10.2 x 4.5 x 3.7 cm SPLEEN: 10.3 cm length AORTA: 2.1cm maximal FINDINGS: LIVER: Normal echotexture without focal lesion or ductal dilatation. COMMON DUCT: No intraluminal mass or stone visualized. GALLBLADDER: Non-shadowing sludge in the gallbladder at its dependent portion. Wall thickness within normal limits . PANCREAS: The visualized portions are within normal limits. RIGHT KIDNEY: Diffusely echogenic cortex. No evidence of hydronephrosis. No focal mass. LEFT KIDNEY: Diffusely echogenic cortex. No evidence of hydronephrosis. Possible 1.6 x 2.2 x 1.4 cm solid mass in the midpole. Small left pleural effusion. SPLEEN: No focal lesion. AORTA: Non aneurysmal. IVC: Within normal limits. CONCLUSION: 1. Echogenic kidneys suggesting medical renal disease. 2. Possible 2 cm solid mass in the midpole of the left kidney. Recommend MRI abdomen for further eval uation. 3. Small left pleural effusion. Nehemias Costa MD on October 14, 2017 at 9:05 Board Certified Radiologist. This report was verified electronically.
--- NOTE | 2017-10-14 10:27 | HHI.PR ---
Subjective Remarks Follow up hypertension, nausea/vomiting. Patient has continued to have nausea/ vomiting. States that he feels "a little better" today. Still not tolerating much by mouth. Objective Vitals Vital Signs Date Time Temp Pulse Resp B/P (MAP) Pulse Ox O2 Delivery O2 Flow Rate FiO2 10/14/17 08:00 98.2 98 13 180/107 (131) 98 10/14/17 08:00 98 10/14/17 06:00 109 10/14/17 04:00 98.9 99 12 183/111 (135) 97 10/14/17 04:00 109 10/14/17 02:00 109 10/14/17 00:00 99.0 107 12 176/101 (126) 96 10/14/17 00:00 109 10/13/17 22:02 97 21 10/13/17 22:00 104 10/13/17 20:00 107 10/13/17 20:00 99.0 104 16 168/102 (124) 98 10/13/17 18:00 110 10/13/17 16:00 98.5 106 15 157/96 (116) 99 10/13/17 16:00 106 10/13/17 14:00 104 10/13/17 12:00 111 10/13/17 12:00 98.6 111 21 171/102 (125) 99 I/O 10/13/17 10/13/17 10/13/17 10/14/17 10/14/17 10/14/17 07:00 15:00 23:00 07:00 15:00 23:00 Intake Total 100 ml 50 ml 370 ml 50 ml Output Total 0 ml 2900 ml 150 ml Balance 100 ml 50 ml -2530 ml -100 ml Intake Oral 100 ml 120 ml 50 ml IV Total 50 ml 250 ml Output Urine Total 0 ml 0 ml 0 ml Emesis 400 ml 150 ml Hemodialysis 2500 ml # Bowel Movements 0 Result Diagram: 10/14/17 0337 10/14/17 0337 Imaging Last Impressions Abdomen Ultrasound 10/14/17 0000 Signed Impressions: Service Date/Time: September 07:47 - CONCLUSION: 1. Echogenic kidneys suggesting medical renal disease. 2. Possible 2 cm solid mass in the midpole of the left kidney. Recommend MRI abdomen for further evaluation. 3. Small left pleural effusion. Nehemias Costa MD Chest X-Ray 10/11/17 1637 Signed Impressions: Service Date/Time: Wednesday, October 11, 2017 17:01 - CONCLUSION: Cardiomegaly with moderate fluid overload. Kevan Lenz MD FACR Objective Remarks General: No acute distress. Resting comfortably. Heart: Tachycardic. Lungs: Clear to auscultation bilaterally. No wheezes, rales, or rhonchi. Breathing is nonlabored. Abdomen: Soft, nontender, nondistended. Extremities: No lower extremity edema. Psych: Alert, oriented. Procedures None Urinary Catheter: No Vascular Central Line Catheter: No A/P Assessment and Plan 1. End-stage renal disease: Hemodialysis per nephrology. 2. Leukocytosis: ? dialysis line infection. Monitor labs. WBCs are trending down. Blood cultures are negative so far. 3. Hypertension: Blood pressure remains elevated. Labetalol, hydralazine IV as needed. Resume amlodipine. 4. Diabetes mellitus, insulin-dependent: Continue 70/30 insulin. Monitor Accu- Cheks and cover with sliding scale insulin. 5. Nausea/vomiting: Continue antiemetics. 6. DVT prophylaxis: PIETRO Clemente. Manpreet Maldonado MD Oct 14, 2017 10:27
[2017-10-14] MEDS: TRIMETHOBENZAMIDE INJ 200 MG/2 ML VIAL IM PRN ×2 (12:49→22:24)
--- NOTE | 2017-10-14 16:36 | PD.CONS ---
HPI History of Present Illness This is a 27 year old with DM, ESRD on HD who presented with SOB and swelling of legs per EMR. GI has been consulted for intractable n/v. pt has had n/v for the last 3 days. Denies blood in emesis, diarrhea, abd pain, fevers, sick contacts, recent chagne in meds or diet, hx liver trouble. Never had EGD or colonoscopy. Pt is limited historian as he is quite lethargic. PFSH Past Medical History Insulin-dependent diabetes mellitus End-stage renal disease on dialysis Hypertension Past Surgical History Renal biopsy circumcision Coded Allergies: No Known Allergies (Unverified Allergy, Unknown, 10/11/17) Family History Negative for CAD/DM Social History Denies alcohol, tobacco and illicit drugs Review of Systems Constitutional: DENIES: Fever Gastrointestinal: COMPLAINS OF: Nausea, Vomiting, DENIES: Abdominal pain, Black stools, Bloody stools, Constipation, Diarrhea, Hematemesis pt otherwise noncontributory GI Exam Vitals I&O Vital Signs Date Time Temp Pulse Resp B/P (MAP) Pulse Ox O2 Delivery O2 Flow Rate FiO2 10/14/17 14:00 97 10/14/17 12:00 110 10/14/17 12:00 98.1 110 24 185/118 (140) 99 10/14/17 10:00 101 10/14/17 08:00 98.2 98 13 180/107 (131) 98 10/14/17 08:00 98 10/14/17 06:00 109 10/14/17 04:00 98.9 99 12 183/111 (135) 97 10/14/17 04:00 109 10/14/17 02:00 109 10/14/17 00:00 99.0 107 12 176/101 (126) 96 10/14/17 00:00 109 10/13/17 22:02 97 21 10/13/17 22:00 104 10/13/17 20:00 107 10/13/17 20:00 99.0 104 16 168/102 (124) 98 10/13/17 18:00 110 I/O 10/13/17 10/13/17 10/13/17 10/14/17 10/14/17 10/14/17 07:00 15:00 23:00 07:00 15:00 23:00 Intake Total 100 ml 50 ml 370 ml 50 ml Output Total 0 ml 2900 ml 150 ml Balance 100 ml 50 ml -2530 ml -100 ml Intake Oral 100 ml 120 ml 50 ml IV Total 50 ml 250 ml Output Urine Total 0 ml 0 ml 0 ml Emesis 400 ml 150 ml Hemodialysis 2500 ml # Bowel Movements 0 Imaging Last Impressions Abdomen Ultrasound 10/14/17 0000 Signed Impressions: Service Date/Time: September 07:47 - CONCLUSION: 1. Echogenic kidneys suggesting medical renal disease. 2. Possible 2 cm solid mass in the midpole of the left kidney. Recommend MRI abdomen for further evaluation. 3. Small left pleural effusion. Nehemias Costa MD Chest X-Ray 10/11/17 1634 Signed Impressions: Service Date/Time: Wednesday, October 11, 2017 17:01 - CONCLUSION: Cardiomegaly with moderate fluid overload. Kevan Lenz MD FACR Laboratory Test 10/14/17 03:37 White Blood Count 15.6 TH/MM3 Red Blood Count 3.14 MIL/MM3 Hemoglobin 8.1 GM/DL Hematocrit 24.9 % Mean Corpuscular Volume 79.4 FL Mean Corpuscular Hemoglobin 25.8 PG Mean Corpuscular Hemoglobin Concent 32.6 % Red Cell Distribution Width 14.4 % Platelet Count 386 TH/MM3 Mean Platelet Volume 8.7 FL Neutrophils (%) (Auto) 82.9 % Lymphocytes (%) (Auto) 8.3 % Monocytes (%) (Auto) 7.3 % Eosinophils (%) (Auto) 0.3 % Basophils (%) (Auto) 1.2 % Neutrophils # (Auto) 12.9 TH/MM3 Lymphocytes # (Auto) 1.3 TH/MM3 Monocytes # (Auto) 1.1 TH/MM3 Eosinophils # (Auto) 0.1 TH/MM3 Basophils # (Auto) 0.2 TH/MM3 CBC Comment AUTO DIFF Differential Comment AUTO DIFF CONFIRMED Tear Drop Cells 1+ Ovalocytes 1+ Keratocytes OCC Blood Urea Nitrogen 37 MG/DL Creatinine 7.15 MG/DL Random Glucose 267 MG/DL Calcium Level 8.3 MG/DL Sodium Level 134 MEQ/L Potassium Level 4.1 MEQ/L Chloride Level 92 MEQ/L Carbon Dioxide Level 30.5 MEQ/L Anion Gap 12 MEQ/L Estimat Glomerular Filtration Rate 11 ML/MIN Date/Time Source Procedure Growth Status 10/12/17 15:20 Blood Peripheral Aerobic Blood Culture - Preliminary NO GROWTH IN 2 DAYS Resulted 10/12/17 15:20 Blood Peripheral Anaerobic Blood Culture - Preliminary NO GROWTH IN 2 DAYS Resulted 10/14/17 12:10 Stool Stool Stool Occult Blood (RUBA) Pending Received Physical Examination HEENT: PERRL; normocephalic; atraumatic; no jaundice. CHEST: CTA CARDIAC: tachycardic ABDOMEN: Soft, nondistended, nontender; no hepatosplenomegaly; bowel sounds are present in all four quadrants. EXTREMITIES: No clubbing, cyanosis, or edema. SKIN: Normal; no rash; no jaundice. ASSISTANT BRAND MANAGER:lethargic Assessment and Plan Plan ASSESSMENT - n/v - onset 3 days ago. could be gastroparesis - anemia - likely d/t chronic dz. HH stable and at his baseline. has had hematology eval on prior admission 04/2017. stool occult blood pending - isolated elevation ALP - unclear significance. neg for hep b, c - leukocytosis - - DM, ESRD on HD PLAN - EGD in am - obtain consent - NPO after MN - if EGD neg, GES - further recs to follow pt seen by myself and dr Leary and this note is written on his behalf Ginette Cuevas Oct 14, 2017 16:36
--- NOTE | 2017-10-14 16:54 | HHI.NPPN ---
Subjective History of Present Illness The patient is a 27 yo [facility] male with PMHx of ESRD on HD, IDDM since age 10 & hypertension who presented to this facility on 10/11 with his mother with complaints of SOB, edema, fatigue, weakness, and nausea. Is ESRD and [facility] and at a facility in [place]. Last outpatient tx this past . States that he moved here on Wednesday without any dialysis arrangements. Mother claims they have been trying to get him into a local unit, but without success. He was admitted at this facility this past April with ARF and accelerated hypertension. Given his severe renal impairment, he underwent a kidney biopsy that confirmed diabetic nephropathy as well as glomerulosclerosis. He was started on HD in [place] in late August/early September. Is moving here permanently with his mother and is in need of dialysis arrangements locally. Currently, the patient is weak and fatigued. He received emergent HD last night given his pulmonary edema. BP has been quite elevated. Unable to tolerate po medications and is currently on Labetalol IV for BP control. Interval History Aging complaining of some nausea otherwise no other complaints. Review of Systems General Constitutional: Fatigue Gastrointestinal Gastrointestinal: Nausea & Vomiting Objective Data Data Vital Signs Date Time Temp Pulse Resp B/P (MAP) Pulse Ox O2 Delivery O2 Flow Rate FiO2 10/14/17 14:00 97 10/14/17 12:00 110 10/14/17 12:00 98.1 110 24 185/118 (140) 99 10/14/17 10:00 101 10/14/17 08:00 98.2 98 13 180/107 (131) 98 10/14/17 08:00 98 10/14/17 06:00 109 10/14/17 04:00 98.9 99 12 183/111 (135) 97 10/14/17 04:00 109 10/14/17 02:00 109 10/14/17 00:00 99.0 107 12 176/101 (126) 96 10/14/17 00:00 109 10/13/17 22:02 97 21 10/13/17 22:00 104 10/13/17 20:00 107 10/13/17 20:00 99.0 104 16 168/102 (124) 98 10/13/17 18:00 110 -: 10/14/17 0337 10/14/17 0337 Microbiology 10/14/17 Stool Occult Blood (RUBA) - Final, Complete HEMOCCULT POSITIVE Physical Exam General Appearance: No Acute Distress, Comfortable Neck Neck Exam: Neck Supple Pulmonary Resp Exam: Clear Bilaterally, Breath Sounds Equal Cardiology CV Exam: Regular, Normal Sinus Rhythm Gastrointestinal/Abdomen GI Exam: Soft Integumentary Skin Exam: Clear, Warm Extremeties Extremities Exam: Trace Edema (bipedal) Neurologic Neuro Exam: Awake (but drowsy.) Assessment/Plan Discussed Condition With: Patient Problem List: (1) ESRD (end stage renal disease) on dialysis ICD Codes: N18.6 - End stage renal disease; Z99.2 - Dependence on renal dialysis Plan: Hemodialysis again tomorrow. batch and furnace manager will have to look into outpatient options for this patient as far as dialysis is concerned. I will continue to provide inpatient nephrology coverage during this admission as consulted.. BCx neg x24h Will continue on Vanc and Zosyn until BCx neg x72h. If BCx neg, will plan for VasCath exchange to PermCath prior to his discharge. If BCx positive, will plan for removal of VasCath. Medications should be adjusted for the patient's ESRD. Avoid gadolinium. (2) Pulmonary edema ICD Codes: J81.1 - Chronic pulmonary edema Plan: Will improve with HD (3) IDDM (insulin dependent diabetes mellitus) ICD Codes: E11.9 - Type 2 diabetes mellitus without complications; Z79.4 - assisted (current) use of insulin Plan: Management as per primary team (4) Hypertension ICD Codes: I10 - Essential (primary) hypertension Plan: Add by mouth hydralazine as well as metoprolol. (5) Leukocytosis ICD Codes: D72.829 - Elevated white blood cell count, unspecified Plan: BCx remain negative. Would likely benefit from ID consultation. Given his RUQ tenderness to palpation, will order imaging (6) Anemia ICD Codes: D64.9 - Anemia, unspecified Status: Acute Plan: Fe low. Given potential infection, will hold off on Venofer infusion at the present. Ordered stool cards. Epogen ordered with HD. Alyson Cantu MD Oct 14, 2017 16:54
[2017-10-14] MEDS: METOPROLOL TARTRATE 50 MG TAB PO SCH (21:00)
[2017-10-14] MEDS: hydrALAZINE HCL 50 MG TAB PO SCH (21:00)
[2017-10-15] VITALS (23 sets, daily range): BP systolic 124–197; BP diastolic 77–121; PULSE 71–103; RESP 11–22; TEMP 98.3–99; O2SAT 91–100
[2017-10-15] MEDS: LABETALOL HCL 100 MG/20 ML VIAL IV PUSH PRN (03:17)
[2017-10-15] MEDS: CHLORHEXIDINE GLUCONATE 2 % 1 PACK (2 CLOTHS)(taper/protocol) TOPICAL SCH (04:00)
[2017-10-15] MEDS: ONDANSETRON HCL 4 MG/2 ML VIAL IVP PRN (05:44)
[2017-10-15] MEDS: INSULIN ASPART SUPPLEMENTAL SCALE SQ SCH ×4 (08:00→21:29)
[2017-10-15] MEDS: INSULIN HUMAN NPH/R 70/30 1,000 UNITS/10 ML VIAL SQ SCH ×2 (08:00→18:11)
[2017-10-15] MEDS: PIPERACIL-TAZO 2.25 GM PREMIX 50 ML IV SCH (08:00)
--- NOTE | 2017-10-15 08:28 | HHI.PR ---
Subjective Remarks Follow up hypertension, nausea/vomiting. The patient states that he feels a little better this morning. Still with nausea/vomiting overnight. Per nursing, not able to keep anything down. BP still elevated. Objective Vitals Vital Signs Date Time Temp Pulse Resp B/P (MAP) Pulse Ox O2 Delivery O2 Flow Rate FiO2 10/15/17 07:32 98.3 10/15/17 06:00 71 10/15/17 04:00 98.8 71 20 124/77 (93) 91 10/15/17 04:00 71 10/15/17 02:00 96 10/15/17 00:00 96 10/15/17 00:00 99.0 98 18 181/105 (130) 96 10/14/17 22:00 99 10/14/17 20:00 99 10/14/17 20:00 98.9 96 18 194/119 (144) 96 10/14/17 19:17 100 21 10/14/17 18:00 107 10/14/17 16:00 104 10/14/17 16:00 98.9 104 12 169/99 (122) 99 10/14/17 14:00 97 10/14/17 12:00 110 10/14/17 12:00 98.1 110 24 185/118 (140) 99 10/14/17 10:00 101 I/O 10/14/17 10/14/17 10/14/17 10/15/17 10/15/17 10/15/17 07:00 15:00 23:00 07:00 15:00 23:00 Intake Total 50 ml 240 ml 100 ml Output Total 150 ml 100 ml 0 ml Balance -100 ml 140 ml 100 ml Intake Oral 50 ml 240 ml 100 ml Output Urine Total 0 ml 100 ml 0 ml Emesis 150 ml # Voids 1 # Bowel Movements 2 2 Result Diagram: 10/14/17 0337 10/14/17 0337 Imaging Last Impressions Abdomen Ultrasound 10/14/17 0000 Signed Impressions: Service Date/Time: September 07:47 - CONCLUSION: 1. Echogenic kidneys suggesting medical renal disease. 2. Possible 2 cm solid mass in the midpole of the left kidney. Recommend MRI abdomen for further evaluation. 3. Small left pleural effusion. Nehemias Costa MD Chest X-Ray 10/11/17 4433 Signed Impressions: Service Date/Time: Wednesday, October 11, 2017 17:01 - CONCLUSION: Cardiomegaly with moderate fluid overload. Kevan Lenz MD FACR Objective Remarks General: No acute distress. Resting comfortably. Heart: Tachycardic. Lungs: Clear to auscultation bilaterally. No wheezes, rales, or rhonchi. Breathing is nonlabored. Abdomen: Soft, nontender, nondistended. Extremities: No lower extremity edema. Psych: Alert, oriented. Procedures None Urinary Catheter: No Vascular Central Line Catheter: No A/P Assessment and Plan 1. End-stage renal disease: Hemodialysis M/W/F per nephrology. 2. Leukocytosis: ? dialysis line infection. Monitor labs. WBCs are trending down. Blood cultures are negative so far. 3. Hypertension: Blood pressure remains elevated. Labetalol, hydralazine IV as needed. Not able to keep oral meds down. Increase clonidine patch. 4. Diabetes mellitus, insulin-dependent: Continue 70/30 insulin. Monitor Accu- Cheks and cover with sliding scale insulin. 5. Nausea/vomiting: Continue antiemetics. May need IV fluids if unable to tolerate PO. 6. GI bleed: Stool hemoccult is positive. Appreciate GI recommendations. EGD today. 7. DVT prophylaxis: PIETRO [place]. Manpreet Maldonado MD Oct 15, 2017 08:28
[2017-10-15] MEDS: TRIMETHOBENZAMIDE INJ 200 MG/2 ML VIAL IM PRN (08:31)
[2017-10-15] MEDS: hydrALAZINE HCL 20 MG/ML VIAL IV PUSH PRN ×3 (08:33→23:05)
[2017-10-15] MEDS: SODIUM CHLORIDE 0.9% FLUSH 10 ML FLUSH IV FLUSH SCH ×2 (08:44→20:30)
[2017-10-15] MEDS: hydrALAZINE HCL 50 MG TAB PO SCH ×2 (08:45→20:30)
[2017-10-15] MEDS: METOPROLOL TARTRATE 50 MG TAB PO SCH ×2 (08:46→20:30)
[2017-10-15] MEDS: CALCIUM ACETATE 667 MG CAP PO SCH ×3 (08:46→18:14)
[2017-10-15] MEDS: FOLIC ACID 1 MG TAB PO SCH (08:46)
[2017-10-15] MEDS: HEPARIN SODIUM - IV 10,000 UNITS/10 ML VIAL PRN (09:17)
[2017-10-15] MEDS: VANCOMYCIN INJ 1,000 MG in SODIUM CHLOR 0.9% 250 ML INJ 250 ML IV SCH (09:17)
[2017-10-15] MEDS: EPOETIN ALFA 10,000 UNITS/ML VIAL IV PUSH PRN (09:18)
[2017-10-15] MEDS: GENTAMICIN SULFATE 20 MG/2 ML VIAL OTHER PRN (09:18)
[2017-10-15 09:41] LABS: AUTOMATED NEUTROPHIL # 8.4 TH/MM3 (1.8-7.7); BASOPHIL # 0.2 TH/MM3 (0-0.2); BASOPHIL % 1.3 % (0.0-2.0); EOSINOPHIL # 0.1 TH/MM3 (0-0.4); EOSINOPHIL % 1.2 % (0.0-4.0); HEMATOCRIT 24.2 % (39.0-51.0); LYMPHOCYTE # 1.5 TH/MM3 (1.0-4.8); MEAN CELL VOLUME 79.8 FL (80.0-100.0); MEAN CORPUSCULAR HEMOGLOBIN 26.4 PG (27.0-34.0); MEAN CORPUSCULAR HGB CONC 33.2 % (32.0-36.0); MEAN PLATELET VOLUME 8.1 FL (7.0-11.0); MONO % 9.8 % (0.0-8.0); MONOCYTE # 1.1 TH/MM3 (0-0.9); NEUT % 74.7 % (16.0-70.0); PLATELET COUNT 382 TH/MM3 (150-450); RED BLOOD COUNT 3.03 MIL/MM3 (4.50-5.90); RED CELL DISTRIBUTION WIDTH 13.9 % (11.6-17.2); WHITE BLOOD COUNT 11.3 TH/MM3 (4.0-11.0)
[2017-10-15] MEDS: cloNIDine HCL 0.2 MG/24 HR PATCH T-DERMAL SCH (10:00)
[2017-10-15 10:28] LABS: BICARBONATE 33.1 MEQ/L (21.0-32.0); CALCIUM 8.4 MG/DL (8.5-10.1); CREATININE 9.46 MG/DL (0.60-1.30)
[2017-10-15] MEDS ORDERED: SUCCINYLCHOLINE CHLORIDE 100 MG/5 ML SYRINGE IV PUSH ONE (12:00)
[2017-10-15] MEDS ORDERED: PROPOFOL 200 MG/20 ML AMP IV ONE (12:00)
[2017-10-15] MEDS ORDERED: LIDOCAINE HCL 1% PF 5 ML SYRINGE OTHER ONE (12:00)
[2017-10-15] MEDS ORDERED: DO NOT ADM ANY ANTICOAGULANT DRUGS PRN (13:17)
--- NOTE | 2017-10-15 13:28 | PD.PROCEDR ---
GI Procedure GI Procedure PROCEDURE PERFORMED EGD with biopsy INDICATION FOR PROCEDURE Nausea vomiting, anemia, patient is known to have severe diabetes on hemodialysis PROCEDURE: The procedure, risks and benefits were discussed with Mr. Miranda and informed consent was obtained. Anesthesia sedated him with Diprivan. He was placed in the left lateral decubitus position. EGD: The Pentax videoscope was introduced through the oropharynx and advanced to the second portion of the duodenum under direct visualization. Retroflexion was performed in the stomach. Biopsy from the antrum ESTIMATED BLOOD LOSS: None SPECIMENS REMOVED: Antrum, distal esophagus COMPLICATIONS: None IMPRESSION: Severe grade D esophagitis Severe gastritis Anemia could be related to chronic disease plus blood loss from the upper GI tract from above PLAN: no NSAIDs protonix 40 mg po Q am Follow-up biopsy Better control of diabetes Arlen Leary MD Oct 15, 2017 13:28
--- NOTE | 2017-10-15 13:31 | HHI.GIFU ---
Subjective Remarks Patient laying in bed seems to be a little bit more comfortable, he had dialysis today, less nauseated no vomiting Objective Vitals I&O Vital Signs Date Time Temp Pulse Resp B/P (MAP) Pulse Ox O2 Delivery O2 Flow Rate FiO2 10/15/17 10:15 103 11 155/103 (120) 99 10/15/17 10:15 103 10/15/17 10:00 103 10/15/17 10:00 103 19 151/98 (115) 99 10/15/17 09:15 99 10/15/17 09:15 99 22 152/98 (116) 99 10/15/17 09:13 99 21 10/15/17 09:00 100 16 179/110 (133) 100 10/15/17 09:00 100 10/15/17 08:00 95 13 187/112 (137) 98 10/15/17 08:00 95 10/15/17 07:32 98.3 10/15/17 07:00 94 14 197/108 (137) 98 10/15/17 07:00 94 10/15/17 06:00 71 10/15/17 04:00 98.8 71 20 124/77 (93) 91 10/15/17 04:00 71 10/15/17 02:00 96 10/15/17 00:00 96 10/15/17 00:00 99.0 98 18 181/105 (130) 96 10/14/17 22:00 99 10/14/17 20:00 99 10/14/17 20:00 98.9 96 18 194/119 (144) 96 10/14/17 19:17 100 21 10/14/17 18:00 107 10/14/17 16:00 104 10/14/17 16:00 98.9 104 12 169/99 (122) 99 10/14/17 14:00 97 I/O 10/14/17 10/14/17 10/14/17 10/15/17 10/15/17 10/15/17 07:00 15:00 23:00 07:00 15:00 23:00 Intake Total 50 ml 240 ml 100 ml 100 ml Output Total 150 ml 100 ml 0 ml 3000 ml Balance -100 ml 140 ml 100 ml -2900 ml Intake Oral 50 ml 240 ml 100 ml Other 100 ml Output Urine Total 0 ml 100 ml 0 ml Emesis 150 ml Hemodialysis 3000 ml # Voids 1 # Bowel Movements 2 2 Laboratory Laboratory Tests Test 10/15/17 09:00 White Blood Count 11.3 Red Blood Count 3.03 Hemoglobin 8.0 Hematocrit 24.2 Mean Corpuscular Volume 79.8 Mean Corpuscular Hemoglobin 26.4 Mean Corpuscular Hemoglobin Concent 33.2 Red Cell Distribution Width 13.9 Platelet Count 382 Mean Platelet Volume 8.1 Neutrophils (%) (Auto) 74.7 Lymphocytes (%) (Auto) 13.0 Monocytes (%) (Auto) 9.8 Eosinophils (%) (Auto) 1.2 Basophils (%) (Auto) 1.3 Neutrophils # (Auto) 8.4 Lymphocytes # (Auto) 1.5 Monocytes # (Auto) 1.1 Eosinophils # (Auto) 0.1 Basophils # (Auto) 0.2 CBC Comment DIFF FINAL Differential Comment Blood Urea Nitrogen 50 Creatinine 9.46 Random Glucose 272 Calcium Level 8.4 Sodium Level 132 Potassium Level 3.7 Chloride Level 89 Carbon Dioxide Level 33.1 Anion Gap 10 Estimat Glomerular Filtration Rate 8 Date/Time Source Procedure Growth Status 10/12/17 15:20 Blood Peripheral Aerobic Blood Culture - Preliminary NO GROWTH IN 3 DAYS Resulted 10/12/17 15:20 Blood Peripheral Anaerobic Blood Culture - Preliminary NO GROWTH IN 3 DAYS Resulted 10/14/17 12:10 Stool Stool Stool Occult Blood (RUBA) - Final HEMOCCULT POSITIVE Complete Physical Exam HEENT: Pupils round and reactive to light; normocephalic; atraumatic; no jaundice. Throat is clear. NECK: Neck is supple, no JVD, no lymphadenopathy. CHEST: Chest is clear to auscultation and percussion. CARDIAC: Regular rate and rhythm with no murmur gallop or rubs. ABDOMEN: Soft, nondistended, mild midepigastric tenderness no splenomegaly; bowel sounds are present in all four quadrants. EXTREMITIES: No clubbing, cyanosis, or edema. SKIN: Normal; no rash; no jaundice. TEACHING ASSISTANT: No focal deficits; alert and oriented times three. Assessment and Plan Plan ASSESSMENT - n/v - onset 3 days ago. could be gastroparesis - anemia - likely d/t chronic dz. HH stable and at his baseline. has had hematology eval on prior admission 04/2017. stool occult blood pending - isolated elevation ALP - unclear significance. neg for hep b, c - leukocytosis - - DM, ESRD on HD 10/15/2017 patient is doing better today less nausea no vomiting today less abdominal pain had dialysis today, also just had upper endoscopy IMPRESSION: Severe grade D esophagitis Severe gastritis Anemia could be related to chronic disease plus blood loss from the upper GI tract from above PLAN: no NSAIDs protonix 40 mg po Q am Follow-up biopsy Better control of diabetes Arlen Leary MD Oct 15, 2017 13:31
[2017-10-15] MEDS ORDERED: SODIUM CHLOR 0.9% 1000 ML INJ 1,000 ML IV PRN (16:33)
[2017-10-15] MEDS ORDERED: SODIUM CHLOR 0.9% 1000 ML INJ 1,000 ML OTHER PRN ×2 (16:33)
--- NOTE | 2017-10-15 16:33 | HHI.NPPN ---
Subjective History of Present Illness The patient is a 27 yo [facility] male with PMHx of ESRD on HD, IDDM since age 10 & hypertension who presented to this facility on 10/11 with his mother with complaints of SOB, edema, fatigue, weakness, and nausea. Is ESRD and been [facility] and at a facility in [place]. Last outpatient tx this past . States that he moved here on Wednesday without any dialysis arrangements. Mother claims they have been trying to get him into a local unit, but without success. He was admitted at this facility this past April with ARF and accelerated hypertension. Given his severe renal impairment, he underwent a kidney biopsy that confirmed diabetic nephropathy as well as glomerulosclerosis. He was started on HD in [place] in late August/early September. Is moving here permanently with his mother and is in need of dialysis arrangements locally. Currently, the patient is weak and fatigued. He received emergent HD last night given his pulmonary edema. BP has been quite elevated. Unable to tolerate po medications and is currently on Labetalol IV for BP control. Interval History Patient seen status post endoscopy. No verbal complaints currently. Review of Systems General Constitutional: Fatigue Gastrointestinal Gastrointestinal: Nausea & Vomiting Objective Data Data 10/15/17 10/16/17 19:00 07:00 Intake Total 100 ml Output Total 3000 ml Balance -2900 ml Other 100 ml Hemodialysis 3000 ml Vital Signs Date Time Temp Pulse Resp B/P (MAP) Pulse Ox O2 Delivery O2 Flow Rate FiO2 10/15/17 13:45 92 16 136/86 (103) 100 Room Air 10/15/17 13:30 91 16 159/83 (108) 100 Room Air 10/15/17 13:24 98.4 91 16 160/88 (112) 100 Simple Mask 7 10/15/17 10:15 103 11 155/103 (120) 99 10/15/17 10:15 103 10/15/17 10:00 103 10/15/17 10:00 103 19 151/98 (115) 99 10/15/17 09:15 99 10/15/17 09:15 99 22 152/98 (116) 99 10/15/17 09:13 99 21 10/15/17 09:00 100 16 179/110 (133) 100 10/15/17 09:00 100 10/15/17 08:00 95 13 187/112 (137) 98 10/15/17 08:00 95 10/15/17 07:32 98.3 10/15/17 07:00 94 14 197/108 (137) 98 10/15/17 07:00 94 10/15/17 06:00 71 10/15/17 04:00 98.8 71 20 124/77 (93) 91 10/15/17 04:00 71 10/15/17 02:00 96 10/15/17 00:00 96 10/15/17 00:00 99.0 98 18 181/105 (130) 96 10/14/17 22:00 99 10/14/17 20:00 99 10/14/17 20:00 98.9 96 18 194/119 (144) 96 10/14/17 19:17 100 21 10/14/17 18:00 107 -: 10/15/17 0900 10/15/17 0900 Physical Exam General Appearance: No Acute Distress, Comfortable Neck Neck Exam: Neck Supple Pulmonary Resp Exam: Clear Bilaterally, Breath Sounds Equal Cardiology CV Exam: Regular, Normal Sinus Rhythm Gastrointestinal/Abdomen GI Exam: Soft Integumentary Skin Exam: Clear, Warm Extremeties Extremities Exam: Trace Edema (bipedal) Neurologic Neuro Exam: Awake (but drowsy.) Assessment/Plan Discussed Condition With: Patient Problem List: (1) ESRD (end stage renal disease) on dialysis ICD Codes: N18.6 - End stage renal disease; Z99.2 - Dependence on renal dialysis Plan: Patient status post hemodialysis today. Continue on Wednesday schedule. Tentative plan to replace Vas-Cath with a hemodialysis PermCath Wednesday to create a more secure dialysis access as an outpatient. Discontinue antibiotics as blood cultures are negative. Patient has severe esophagitis and gastritis as documented by GI. assistant inventory manager will have to look into outpatient options for this patient as far as dialysis is concerned. I will continue to provide inpatient nephrology coverage during this admission as consulted.. Medications should be adjusted for the patient's ESRD. Avoid gadolinium. (2) Pulmonary edema ICD Codes: J81.1 - Chronic pulmonary edema Plan: Volume status improved with dialysis. (3) IDDM (insulin dependent diabetes mellitus) ICD Codes: E11.9 - Type 2 diabetes mellitus without complications; Z79.4 - [facility] (current) use of insulin Plan: Management as per primary team (4) Hypertension ICD Codes: I10 - Essential (primary) hypertension Plan: Add by mouth hydralazine as well as metoprolol. (5) Leukocytosis ICD Codes: D72.829 - Elevated white blood cell count, unspecified Plan: Improved. (6) Anemia ICD Codes: D64.9 - Anemia, unspecified Status: Acute Plan: Iron supplementation as ordered. Alyson Cantu MD Oct 15, 2017 16:33
[2017-10-15] MEDS ORDERED: ALBUMIN 25% INJ 100 ML IV PRN (16:45)
[2017-10-15] MEDS ORDERED: SODIUM CHLORID 0.9% 500 ML INJ 500 ML ONE (17:10)
[2017-10-15] MEDS: SODIUM CHLORIDE 0.9% FLUSH 10 ML FLUSH IV FLUSH PRN (18:11)
[2017-10-15] MEDS: cloNIDine HCL 0.1 MG TAB PO PRN ×2 (18:11→20:30)
[2017-10-15] MEDS: IRON SUCROSE INJ 100 MG in SODIUM CHLORIDE 0.9% INJ 100 ML IV SCH (19:47)
[2017-10-16] VITALS (14 sets, daily range): BP systolic 134–165; BP diastolic 89–115; PULSE 76–83; RESP 10–14; TEMP 97.7–98.9; O2SAT 96–100
[2017-10-16 04:49] LABS: AUTOMATED NEUTROPHIL # 5.3 TH/MM3 (1.8-7.7); BASOPHIL # 0.2 TH/MM3 (0-0.2); BASOPHIL % 1.9 % (0.0-2.0); EOSINOPHIL # 0.2 TH/MM3 (0-0.4); EOSINOPHIL % 2.3 % (0.0-4.0); HEMATOCRIT 27.3 % (39.0-51.0); HEMOGLOBIN 9.3 GM/DL (13.0-17.0); LYMPH % 24.8 % (9.0-44.0); LYMPHOCYTE # 2.3 TH/MM3 (1.0-4.8); MEAN CELL VOLUME 78.9 FL (80.0-100.0); MEAN CORPUSCULAR HEMOGLOBIN 26.9 PG (27.0-34.0); MONO % 13.1 % (0.0-8.0); MONOCYTE # 1.2 TH/MM3 (0-0.9); NEUT % 57.9 % (16.0-70.0); PLATELET COUNT 432 TH/MM3 (150-450); RED BLOOD COUNT 3.45 MIL/MM3 (4.50-5.90); RED CELL DISTRIBUTION WIDTH 14.2 % (11.6-17.2); WHITE BLOOD COUNT 9.1 TH/MM3 (4.0-11.0)
[2017-10-16] MEDS: hydrALAZINE HCL 20 MG/ML VIAL IV PUSH PRN ×2 (05:03→14:55)
[2017-10-16] MEDS: ONDANSETRON HCL 4 MG/2 ML VIAL IV PUSH PRN ×2 (05:09→16:23)
[2017-10-16 05:14] LABS: BICARBONATE 32.1 MEQ/L (21.0-32.0); CALCIUM 8.3 MG/DL (8.5-10.1); CREATININE 6.87 MG/DL (0.60-1.30)
[2017-10-16 05:49] LABS: ACANTHOCYTES OCC (NORMAL); OVALOCYTES 1+ (NORMAL); TEARDROP RBCS 1+ (NORMAL)
[2017-10-16] MEDS: INSULIN ASPART SUPPLEMENTAL SCALE SQ SCH ×4 (08:00→20:20)
[2017-10-16] MEDS: INSULIN HUMAN NPH/R 70/30 1,000 UNITS/10 ML VIAL SQ SCH ×2 (08:00→17:00)
[2017-10-16] MEDS: IRON SUCROSE INJ 100 MG in SODIUM CHLORIDE 0.9% INJ 100 ML IV SCH (08:46)
[2017-10-16] MEDS: CALCIUM ACETATE 667 MG CAP PO SCH ×3 (08:46→17:56)
[2017-10-16] MEDS: FOLIC ACID 1 MG TAB PO SCH (08:46)
[2017-10-16] MEDS: SODIUM CHLORIDE 0.9% FLUSH 10 ML FLUSH IV FLUSH SCH ×2 (08:47→20:20)
[2017-10-16] MEDS: hydrALAZINE HCL 50 MG TAB PO SCH ×2 (08:47→20:19)
[2017-10-16] MEDS: PANTOPRAZOLE SOD 40 MG DELAYED RELEASE TAB PO SCH (08:47)
[2017-10-16] MEDS: METOPROLOL TARTRATE 50 MG TAB PO SCH ×2 (08:47→20:19)
--- NOTE | 2017-10-16 10:28 | HHI.PR ---
Subjective Remarks Follow-up nausea, vomiting. The patient states that his nausea is a little better today. He has been able to keep some liquids down. He has been able to take some of his oral blood pressure medications as well. Objective Vitals Vital Signs Date Time Temp Pulse Resp B/P (MAP) Pulse Ox O2 Delivery O2 Flow Rate FiO2 10/16/17 09:58 100 21 10/16/17 06:00 83 10/16/17 04:00 98.9 78 12 138/92 (107) 100 10/16/17 04:00 78 10/16/17 02:00 78 10/16/17 00:00 80 10/16/17 00:00 98.8 80 11 137/90 (106) 100 10/15/17 22:00 80 10/15/17 21:16 100 21 10/15/17 20:00 98.5 96 17 173/112 (132) 100 10/15/17 20:00 96 10/15/17 18:00 94 10/15/17 18:00 94 16 177/121 (139) 100 10/15/17 17:16 101 20 162/103 (122) 100 10/15/17 17:16 101 10/15/17 17:00 101 17 177/111 (133) 100 10/15/17 17:00 101 10/15/17 16:45 96 12 154/99 (117) 100 10/15/17 16:45 96 10/15/17 16:15 96 12 160/102 (121) 100 10/15/17 16:15 96 10/15/17 16:00 94 10/15/17 16:00 94 12 164/104 (124) 100 10/15/17 15:00 93 10/15/17 15:00 93 157/106 (123) 100 10/15/17 14:15 95 10/15/17 14:15 95 13 153/105 (121) 100 10/15/17 13:45 92 16 136/86 (103) 100 Room Air 10/15/17 13:30 91 16 159/83 (108) 100 Room Air 10/15/17 13:24 98.4 91 16 160/88 (112) 100 Simple Mask 7 I/O 10/15/17 10/15/17 10/15/17 10/16/17 10/16/17 10/16/17 07:00 15:00 23:00 07:00 15:00 23:00 Intake Total 100 ml 100 ml 500 ml 200 ml Output Total 0 ml 3000 ml 0 ml 121 ml Balance 100 ml -2900 ml 500 ml 79 ml Intake Oral 100 ml 500 ml 200 ml Other 100 ml Output Urine Total 0 ml 0 ml 120 ml Stool Total 1 ml Emesis 0 ml Hemodialysis 3000 ml # Voids 3 # Bowel Movements 2 1 1 Result Diagram: 10/16/17 0408 10/16/17 0408 Imaging Last Impressions Abdomen Ultrasound 10/14/17 0000 Signed Impressions: Service Date/Time: September 07:47 - CONCLUSION: 1. Echogenic kidneys suggesting medical renal disease. 2. Possible 2 cm solid mass in the midpole of the left kidney. Recommend MRI abdomen for further evaluation. 3. Small left pleural effusion. Nehemias Costa MD Chest X-Ray 10/11/17 1634 Signed Impressions: Service Date/Time: Wednesday, October 11, 2017 17:01 - CONCLUSION: Cardiomegaly with moderate fluid overload. Kevan Lenz MD FACR Objective Remarks General: No acute distress. Resting comfortably. Heart: Regular rate and rhythm without murmurs, rubs, or gallops. Lungs: Clear to auscultation bilaterally. No wheezes, rales, or rhonchi. Breathing is nonlabored. Abdomen: Soft, nontender, nondistended. Extremities: No lower extremity edema. Psych: Alert, oriented. Procedures None Urinary Catheter: No Vascular Central Line Catheter: No A/P Assessment and Plan 1. End-stage renal disease: Hemodialysis M/W/F per nephrology. Will need Vas- Cath exchange to a permacath prior to discharge. 2. Leukocytosis: Resolved. No other signs of infection at this time. Blood cultures are negative. Antibiotics discontinued. 3. Hypertension: Blood pressure is improving. Labetalol, hydralazine IV as needed. Continue clonidine patch. 4. Diabetes mellitus, insulin-dependent: Continue 70/30 insulin. Monitor Accu- Cheks and cover with sliding scale insulin. 5. Nausea/vomiting: Continue antiemetics as needed. 6. GI bleed: Stool hemoccult is positive. Appreciate GI recommendations. EGD shows severe gastriti, esophagitis s. 7. DVT prophylaxis: SCDs, PIETRO latif. Discharge Planning Transfer to medical/surgical floor. Manpreet Maldonado MD Oct 16, 2017 10:28
--- NOTE | 2017-10-16 12:37 | HHI.NPPN ---
Subjective History of Present Illness The patient is a 27 yo [employer] male with PMHx of ESRD on HD, IDDM since age 10 & hypertension who presented to this facility on 10/11 with his mother with complaints of SOB, edema, fatigue, weakness, and nausea. Is ESRD and been receiving HD [facility] and at a facility in [place]. Last outpatient tx this past . States that he moved here on Wednesday without any dialysis arrangements. Mother claims they have been trying to get him into a local unit, but without success. He was admitted at this facility this past April with ARF and accelerated hypertension. Given his severe renal impairment, he underwent a kidney biopsy that confirmed diabetic nephropathy as well as glomerulosclerosis. He was started on HD in [place] in late August/early September. Is moving here permanently with his mother and is in need of dialysis arrangements locally. Currently, the patient is weak and fatigued. He received emergent HD last night given his pulmonary edema. BP has been quite elevated. Unable to tolerate po medications and is currently on Labetalol IV for BP control. Interval History More awake today. Says he is having some sore throat today that he is attributing to his EGD yesterday. (Lety Briggs) Review of Systems General Constitutional: Fatigue (Lety Briggs) Ears, Nose, & Throat Ears, Nose & Throat: Sore Throat (Lety Briggs) Objective Data Data Vital Signs Date Time Temp Pulse Resp B/P (MAP) Pulse Ox O2 Delivery O2 Flow Rate FiO2 10/16/17 10:00 83 10/16/17 09:58 100 21 10/16/17 08:00 98.2 80 10 145/96 (112) 100 10/16/17 08:00 80 10/16/17 06:00 83 10/16/17 04:00 98.9 78 12 138/92 (107) 100 10/16/17 04:00 78 10/16/17 02:00 78 10/16/17 00:00 80 10/16/17 00:00 98.8 80 11 137/90 (106) 100 10/15/17 22:00 80 10/15/17 21:16 100 21 10/15/17 20:00 98.5 96 17 173/112 (132) 100 10/15/17 20:00 96 10/15/17 18:00 94 10/15/17 18:00 94 16 177/121 (139) 100 10/15/17 17:16 101 20 162/103 (122) 100 10/15/17 17:16 101 10/15/17 17:00 101 17 177/111 (133) 100 10/15/17 17:00 101 10/15/17 16:45 96 12 154/99 (117) 100 10/15/17 16:45 96 10/15/17 16:15 96 12 160/102 (121) 100 10/15/17 16:15 96 10/15/17 16:00 94 10/15/17 16:00 94 12 164/104 (124) 100 10/15/17 15:00 93 10/15/17 15:00 93 157/106 (123) 100 10/15/17 14:15 95 10/15/17 14:15 95 13 153/105 (121) 100 10/15/17 13:45 92 16 136/86 (103) 100 Room Air 10/15/17 13:30 91 16 159/83 (108) 100 Room Air 10/15/17 13:24 98.4 91 16 160/88 (112) 100 Simple Mask 7 (Lety Briggs) -: 10/16/17 0408 10/16/17 0408 Imaging Last Impressions Abdomen Ultrasound 10/14/17 0000 Signed Impressions: Service Date/Time: September 07:47 - CONCLUSION: 1. Echogenic kidneys suggesting medical renal disease. 2. Possible 2 cm solid mass in the midpole of the left kidney. Recommend MRI abdomen for further evaluation. 3. Small left pleural effusion. Nehemias Costa MD Chest X-Ray 10/11/17 1634 Signed Impressions: Service Date/Time: Wednesday, October 11, 2017 17:01 - CONCLUSION: Cardiomegaly with moderate fluid overload. Kevan Lenz MD FACR Tubes & Lines: Vas-Cath Medication Review Current Medications Medications (Trade) Dose Ordered Sig/Ovi Route Start Time Stop Time Status Last Admin Sodium Chloride 1,000 ml @ 0 mls/hr Q0M PRN OTHER 10/11/17 19:05 10/12/17 00:00 (Heparin Inj) 8,000 units UNSCH PRN IV FLUSH 10/11/17 19:15 (Heparin Inj) 1,000 units Q1H PRN IV FLUSH 10/11/17 19:15 Sodium Chloride 1,000 ml @ 200 mls/hr Q5H PRN IV 10/11/17 19:05 Sodium Chloride 1,000 ml @ 0 mls/hr Q0M PRN OTHER 10/11/17 19:05 (Mannitol Inj) 12.5 gm UNSCH PRN IV 10/11/17 19:15 Albumin Human 100 ml @ 60 mls/hr UNSCH PRN IV 10/11/17 19:15 (NS Flush) 5 ml UNSCH PRN IV FLUSH 10/11/17 19:15 (Heparin Inj) UNSCH PRN .XX 10/11/17 19:15 10/15/17 09:17 (Gentamicin (Dialysis) Inj) 20 mg UNSCH PRN OTHER 10/11/17 19:15 10/15/17 09:18 (Zofran Inj) 4 mg UNSCH PRN IV PUSH 10/11/17 19:15 10/16/17 05:09 (Tylenol) 650 mg UNSCH PRN PO 10/11/17 19:15 (Benadryl) 25 mg UNSCH PRN PO 10/11/17 19:15 (Nitrostat Sl) 0.4 mg UNSCH PRN SL 10/11/17 19:15 (Catapres) 0.1 mg UNSCH PRN PO 10/11/17 19:15 10/15/17 20:30 (Gelfoam 12 Mm/7 Mm Top) 1 foam UNSCH PRN TOP 10/11/17 19:15 (NS Flush) 2 ml UNSCH PRN IV FLUSH 10/11/17 19:30 10/15/17 18:11 (NS Flush) 2 ml BID IV FLUSH 10/11/17 21:00 10/16/17 08:47 (Tylenol) 650 mg Q4H PRN PO 10/11/17 19:30 (Zofran Inj) 4 mg Q6H PRN IVP 10/11/17 19:30 10/15/17 05:44 (Narcan Inj) 0.4 mg UNSCH PRN IV PUSH 10/11/17 19:30 (D50w (Vial) Inj) 50 ml UNSCH PRN IV PUSH 10/11/17 19:30 10/12/17 02:09 (Glucagon Inj) 1 mg UNSCH PRN OTHER 10/11/17 19:30 (NovoLOG SUPPLEMENTAL SCALE) 1 ACHS SLIDING SCALE SQ 10/11/17 21:00 10/16/17 08:00 (Norvasc) 10 mg DAILY PO 10/12/17 09:00 10/16/17 08:47 (Folate) 0.5 mg DAILY PO 10/12/17 09:00 10/16/17 08:46 (Lasix) 60 mg DAILY@0900,1800 PO 10/11/17 20:15 Future Hold 10/11/17 20:15 (NovoLIN 70/30 INJ) 15 units DAILY@0800,1700 SQ 10/12/17 08:00 10/16/17 08:00 Miscellaneous Information Patient in critical care unit? Ass... Q361D .XX 10/11/17 21:00 10/11/17 21:00 (Chlorhexidine 2% Cloth) 3 pack UNSCH PRN TOPICAL 10/11/17 21:00 10/16/17 20:57 (Trandate Inj) 10 mg Q4H PRN IV PUSH 10/12/17 08:15 10/15/17 03:17 (Apresoline Inj) 20 mg Q4H PRN IV PUSH 10/12/17 13:15 10/16/17 05:03 (Tigan Inj) 200 mg Q6H PRN IM 10/12/17 16:45 10/15/17 08:31 (Epogen Inj) 10,000 units UNSCH PRN IV PUSH 10/13/17 14:30 10/15/17 09:18 (Phoslo) 667 mg TID PO 10/13/17 18:00 10/16/17 08:46 (Lopressor) 50 mg Q12HR PO 10/14/17 21:00 10/16/17 08:47 (Apresoline) 50 mg Q12HR PO 10/14/17 21:00 10/16/17 08:47 (Catapres-Tts 0.2 Mg Patch.7d) 1 patch Q7D T-DERMAL 10/15/17 10:00 10/15/17 10:00 Miscellaneous Information 1 Q7D T-DERMAL 10/22/17 10:00 Miscellaneous Information ALL NURSING DEPARTME... UNSCH PRN .XX 10/15/17 13:17 10/16/17 13:16 Iron Sucrose 100 mg/Sodium Chloride 105 ml @ 105 mls/hr DAILY IV 10/15/17 16:45 10/17/17 09:59 10/16/17 08:46 Sodium Chloride 1,000 ml @ 0 mls/hr Q0M PRN OTHER 10/15/17 16:33 Sodium Chloride 1,000 ml @ 200 mls/hr Q5H PRN IV 10/15/17 16:33 Sodium Chloride 1,000 ml @ 0 mls/hr Q0M PRN OTHER 10/15/17 16:33 Albumin Human 100 ml @ 60 mls/hr UNSCH PRN IV 10/15/17 16:45 (Protonix) 40 mg DAILY PO 10/16/17 09:00 10/16/17 08:47 (Lety Briggs) Physical Exam General Appearance: No Acute Distress, Comfortable (Lety Briggs) Neck Neck Exam: Neck Supple (Lety Briggs) Pulmonary Resp Exam: Clear Bilaterally, Breath Sounds Equal (Lety Briggs) Cardiology CV Exam: Regular, Normal Sinus Rhythm (Lety Briggs) Gastrointestinal/Abdomen GI Exam: Soft GI Remarks Tenderness to palpation RUQ (Lety Briggs) Integumentary Skin Exam: Clear, Warm (Lety Briggs) Extremeties Extremities Exam: No Edema (Lety Briggs) Neurologic Neuro Exam: Awake (but drowsy.) (Lety Briggs) Assessment/Plan Discussed Condition With: Patient Problem List: (1) ESRD (end stage renal disease) on dialysis ICD Codes: N18.6 - End stage renal disease; Z99.2 - Dependence on renal dialysis Plan: Patient status post hemodialysis today. Continue on Wednesday schedule. Tentative plan to replace Vas-Cath with a hemodialysis PermCath Wednesday to create a more secure dialysis access as an outpatient. Patient has severe esophagitis and gastritis as documented by GI. 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 I will continue to provide inpatient nephrology coverage during this admission as consulted. Medications should be adjusted for the patient's ESRD. Avoid gadolinium. (2) Pulmonary edema ICD Codes: J81.1 - Chronic pulmonary edema Plan: Volume status improved with dialysis. (3) IDDM (insulin dependent diabetes mellitus) ICD Codes: E11.9 - Type 2 diabetes mellitus without complications; Z79.4 - halfway (current) use of insulin Plan: Management as per primary team (4) Hypertension ICD Codes: I10 - Essential (primary) hypertension Plan: Improving (5) Leukocytosis ICD Codes: D72.829 - Elevated white blood cell count, unspecified Plan: Improved. (6) Anemia ICD Codes: D64.9 - Anemia, unspecified Status: Acute Plan: Iron supplementation as ordered. (Lety Briggs) Plan Consult radiology to convert Vas-Cath hemodialysis PermCath in preparation for discharge. I will provide in-house care during this inpatient hospital admission as consulted. From nephrology point of view patient could be discharged after PermCath placement to return to the care of his previous provider. Recommendations for disposition per hospital and case management. (Alyson Cantu MD) Lety Briggs Oct 16, 2017 12:37 Alyson Cantu MD Oct 16, 2017 16:34
[2017-10-16] MEDS ORDERED: POTASSIUM CHLORIDE 10 MEQ CONTROLLED RELEASE TAB PO ONE (15:00)
--- NOTE | 2017-10-16 15:12 | HHI.GIFU ---
Subjective Remarks Awake Resting in the bed in the intensive care setting Mild nausea random this a.m. none now Does note some epigastric soreness Stools are loose (Lisa Burns) Objective Vitals I&O Vital Signs Date Time Temp Pulse Resp B/P (MAP) Pulse Ox O2 Delivery O2 Flow Rate FiO2 10/16/17 14:00 77 10/16/17 12:00 79 10/16/17 12:00 98.6 79 13 165/115 (132) 100 10/16/17 10:00 83 10/16/17 09:58 100 21 10/16/17 08:00 98.2 80 10 145/96 (112) 100 10/16/17 08:00 80 10/16/17 06:00 83 10/16/17 04:00 98.9 78 12 138/92 (107) 100 10/16/17 04:00 78 10/16/17 02:00 78 10/16/17 00:00 80 10/16/17 00:00 98.8 80 11 137/90 (106) 100 10/15/17 22:00 80 10/15/17 21:16 100 21 10/15/17 20:00 98.5 96 17 173/112 (132) 100 10/15/17 20:00 96 10/15/17 18:00 94 10/15/17 18:00 94 16 177/121 (139) 100 10/15/17 17:16 101 20 162/103 (122) 100 10/15/17 17:16 101 10/15/17 17:00 101 17 177/111 (133) 100 10/15/17 17:00 101 10/15/17 16:45 96 12 154/99 (117) 100 10/15/17 16:45 96 10/15/17 16:15 96 12 160/102 (121) 100 10/15/17 16:15 96 10/15/17 16:00 94 10/15/17 16:00 94 12 164/104 (124) 100 I/O 10/15/17 10/15/17 10/15/17 10/16/17 10/16/17 10/16/17 07:00 15:00 23:00 07:00 15:00 23:00 Intake Total 100 ml 100 ml 500 ml 200 ml Output Total 0 ml 3000 ml 0 ml 121 ml Balance 100 ml -2900 ml 500 ml 79 ml Intake Oral 100 ml 500 ml 200 ml Other 100 ml Output Urine Total 0 ml 0 ml 120 ml Stool Total 1 ml Emesis 0 ml Hemodialysis 3000 ml # Voids 3 # Bowel Movements 2 1 1 Laboratory Laboratory Tests Test 10/16/17 04:08 White Blood Count 9.1 Red Blood Count 3.45 Hemoglobin 9.3 Hematocrit 27.3 Mean Corpuscular Volume 78.9 Mean Corpuscular Hemoglobin 26.9 Mean Corpuscular Hemoglobin Concent 34.0 Red Cell Distribution Width 14.2 Platelet Count 432 Mean Platelet Volume 8.0 Neutrophils (%) (Auto) 57.9 Lymphocytes (%) (Auto) 24.8 Monocytes (%) (Auto) 13.1 Eosinophils (%) (Auto) 2.3 Basophils (%) (Auto) 1.9 Neutrophils # (Auto) 5.3 Lymphocytes # (Auto) 2.3 Monocytes # (Auto) 1.2 Eosinophils # (Auto) 0.2 Basophils # (Auto) 0.2 CBC Comment AUTO DIFF Differential Comment AUTO DIFF CONFIRMED Platelet Estimate NORMAL Platelet Morphology Comment NORMAL Tear Drop Cells 1+ Ovalocytes 1+ Acanthocytes OCC Blood Urea Nitrogen 32 Creatinine 6.87 Random Glucose 139 Calcium Level 8.3 Sodium Level 134 Potassium Level 3.4 Chloride Level 94 Carbon Dioxide Level 32.1 Anion Gap 8 Estimat Glomerular Filtration Rate 12 Date/Time Source Procedure Growth Status 10/12/17 15:20 Blood Peripheral Aerobic Blood Culture - Preliminary NO GROWTH IN 4 DAYS Resulted 10/12/17 15:20 Blood Peripheral Anaerobic Blood Culture - Preliminary NO GROWTH IN 4 DAYS Resulted 10/14/17 12:10 Stool Stool Stool Occult Blood (RUBA) - Final HEMOCCULT POSITIVE Complete Imaging Last Impressions Abdomen Ultrasound 10/14/17 0000 Signed Impressions: Service Date/Time: September 07:47 - CONCLUSION: 1. Echogenic kidneys suggesting medical renal disease. 2. Possible 2 cm solid mass in the midpole of the left kidney. Recommend MRI abdomen for further evaluation. 3. Small left pleural effusion. Nehemias Costa MD Chest X-Ray 10/11/17 1634 Signed Impressions: Service Date/Time: Wednesday, October 11, 2017 17:01 - CONCLUSION: Cardiomegaly with moderate fluid overload. Kevan Lenz MD FACR Physical Exam HEENT: Pupils round and reactive to light; normocephalic; atraumatic; no jaundice. Oral cavity clean no hoarseness NECK: Neck is supple, CHEST: Chest is clear to auscultation and percussion. CARDIAC: Regular rate and rhythm ABDOMEN: Soft, nondistended, mild midepigastric tenderness, bowel sounds are present in all four quadrants. EXTREMITIES: No edema. SKIN: Normal; no rash; no jaundice. CHILD AND ADOLESCENT PSYCHIATRIST: alert and oriented times three. Answer simple questions (Lisa Burns) Assessment and Plan Plan ASSESSMENT - n/v - onset 3 days ago. , Still have some mild nausea but much improved - anemia - likely d/t chronic dz. HH stable and at his baseline. has had hematology eval on prior admission 04/2017. stool occult blood pending - DM, ESRD on HD 10/15/2017 EGD done shows Severe grade D esophagitis Severe gastritis Anemia could be related to chronic disease plus blood loss from the upper GI tract from above PLAN: no NSAIDs Pantoprazole 40 mg by mouth daily Follow-up biopsy in 7-10 days Better control of diabetes Should be stable from a GI standpoint to transition out of intensive care Monitor hemoglobin currently stable at 9.3 without any obvious bleeding Diet as tolerated renal ADA Supportive care Will need follow-up from GI after discharge This patient was seen by Dr. Leary, and myself, note was done on his behalf (Lisa Burns) Plan Patient was seen and examined, agree with above-noted, tolerating liquid diet and will like to advance it, no abdominal pain minimal discomfort, okay to advance diet to diabetic diet we will see how he tolerated, patient need control of his diabetes (Arlen Leary MD) Lisa Burns Oct 16, 2017 15:12 Arlen Leary MD Oct 16, 2017 20:24
[2017-10-17] VITALS (13 sets, daily range): BP systolic 135–158; BP diastolic 87–105; PULSE 77–85; RESP 9–20; TEMP 96–98.5; O2SAT 97–100
[2017-10-17] MEDS: LABETALOL HCL 100 MG/20 ML VIAL IV PUSH PRN (05:19)
[2017-10-17 05:54] LABS: AUTOMATED NEUTROPHIL # 6.7 TH/MM3 (1.8-7.7); BASOPHIL # 0.3 TH/MM3 (0-0.2); BASOPHIL % 2.8 % (0.0-2.0); EOSINOPHIL # 0.2 TH/MM3 (0-0.4); EOSINOPHIL % 2.3 % (0.0-4.0); HEMATOCRIT 30.6 % (39.0-51.0); HEMOGLOBIN 10.5 GM/DL (13.0-17.0); LYMPH % 21.4 % (9.0-44.0); LYMPHOCYTE # 2.3 TH/MM3 (1.0-4.8); MEAN CELL VOLUME 78.6 FL (80.0-100.0); MEAN CORPUSCULAR HEMOGLOBIN 26.8 PG (27.0-34.0); MEAN CORPUSCULAR HGB CONC 34.1 % (32.0-36.0); MEAN PLATELET VOLUME 8.6 FL (7.0-11.0); MONO % 11.1 % (0.0-8.0); MONOCYTE # 1.2 TH/MM3 (0-0.9); NEUT % 62.4 % (16.0-70.0); PLATELET COUNT 509 TH/MM3 (150-450); RED CELL DISTRIBUTION WIDTH 14.1 % (11.6-17.2); WHITE BLOOD COUNT 10.7 TH/MM3 (4.0-11.0)
[2017-10-17 06:31] LABS: BICARBONATE 31.6 MEQ/L (21.0-32.0); CALCIUM 8.1 MG/DL (8.5-10.1); CREATININE 8.69 MG/DL (0.60-1.30)
[2017-10-17 07:05] LABS: LYMPHOCYTES 21 % (9-44); MONOCYTES 9 % (0-8); MYELOCYTES 1 % (0-0); NEUTROPHIL # MANUAL DIFF 7.2 TH/MM3 (1.8-7.7); POLYS (SEG NEUTROPHILS) 66 % (16-70)
[2017-10-17 07:06] LABS: KERATOCYTES OCC (NORMAL); OVALOCYTES 2+ (NORMAL); TEARDROP RBCS 1+ (NORMAL)
[2017-10-17] MEDS: hydrALAZINE HCL 20 MG/ML VIAL IV PUSH PRN ×2 (07:26→13:10)
[2017-10-17] MEDS: INSULIN ASPART SUPPLEMENTAL SCALE SQ SCH ×4 (08:00→21:00)
[2017-10-17] MEDS: INSULIN HUMAN NPH/R 70/30 1,000 UNITS/10 ML VIAL SQ SCH ×2 (08:00→16:32)
[2017-10-17] MEDS ORDERED: POTASSIUM CHLORIDE 10 MEQ CONTROLLED RELEASE TAB PO ONE (08:00)
[2017-10-17] MEDS: PANTOPRAZOLE SOD 40 MG DELAYED RELEASE TAB PO SCH (08:07)
[2017-10-17] MEDS: hydrALAZINE HCL 50 MG TAB PO SCH ×2 (08:07→20:50)
[2017-10-17] MEDS: METOPROLOL TARTRATE 50 MG TAB PO SCH ×2 (08:07→20:50)
[2017-10-17] MEDS: FOLIC ACID 1 MG TAB PO SCH (08:07)
[2017-10-17] MEDS: CALCIUM ACETATE 667 MG CAP PO SCH ×3 (08:07→17:40)
[2017-10-17] MEDS: ONDANSETRON HCL 4 MG/2 ML VIAL IV PUSH PRN ×2 (08:08→15:12)
[2017-10-17] MEDS: IRON SUCROSE INJ 100 MG in SODIUM CHLORIDE 0.9% INJ 100 ML IV SCH (08:08)
[2017-10-17] MEDS: SODIUM CHLORIDE 0.9% FLUSH 10 ML FLUSH IV FLUSH SCH ×2 (08:09→20:51)
--- NOTE | 2017-10-17 09:12 | HHI.PR ---
Subjective Remarks Follow-up nausea/vomiting, hypertension. The patient states that he feels much better today. He is wanting to eat regular food. Apparently his mother has been bringing him food, much of which is high in carbohydrates despite the patient being on a diabetic diet. Objective Vitals Vital Signs Date Time Temp Pulse Resp B/P (MAP) Pulse Ox O2 Delivery O2 Flow Rate FiO2 10/17/17 06:00 81 10/17/17 04:00 82 10/17/17 04:00 98.3 82 14 135/87 (103) 100 10/17/17 03:46 97 10/17/17 02:00 81 10/17/17 00:00 98.5 81 16 158/105 (122) 100 10/17/17 00:00 81 10/16/17 22:00 80 10/16/17 20:02 96 10/16/17 20:00 81 10/16/17 20:00 98.7 81 14 144/101 (115) 100 10/16/17 18:00 81 10/16/17 16:00 97.7 76 12 134/89 (104) 100 10/16/17 16:00 76 10/16/17 14:00 77 10/16/17 12:00 79 10/16/17 12:00 98.6 79 13 165/115 (132) 100 10/16/17 10:00 83 10/16/17 09:58 100 21 I/O 10/16/17 10/16/17 10/16/17 10/17/17 10/17/17 10/17/17 07:00 15:00 23:00 07:00 15:00 23:00 Intake Total 605 ml 105 ml 960 ml 240 ml Output Total 121 ml 150 ml Balance 484 ml 105 ml 960 ml 90 ml Intake Oral 200 ml 960 ml 240 ml IV Total 405 ml 105 ml Output Urine Total 120 ml 150 ml Stool Total 1 ml # Voids 3 # Bowel Movements 1 0 Result Diagram: 10/17/1741110/17/17411 Imaging Last Impressions Abdomen Ultrasound 10/14/17 0000 Signed Impressions: Service Date/Time: September 07:47 - CONCLUSION: 1. Echogenic kidneys suggesting medical renal disease. 2. Possible 2 cm solid mass in the midpole of the left kidney. Recommend MRI abdomen for further evaluation. 3. Small left pleural effusion. Nehemias Costa MD Chest X-Ray 10/11/17 1634 Signed Impressions: Service Date/Time: Wednesday, October 11, 2017 17:01 - CONCLUSION: Cardiomegaly with moderate fluid overload. Kevan Lenz MD FACR Objective Remarks General: No acute distress. Heart: Regular rate and rhythm without murmurs, rubs, or gallops. Lungs: Clear to auscultation bilaterally. No wheezes, rales, or rhonchi. Breathing is nonlabored. Abdomen: Soft, nontender, nondistended. Extremities: No lower extremity edema. Psych: Alert, oriented. Procedures None Urinary Catheter: No Vascular Central Line Catheter: No A/P Assessment and Plan 1. End-stage renal disease: Hemodialysis M/W/F per nephrology. Will need Vas- Cath exchange to a permacath prior to discharge. Will also need arrangements to be made for outpatient dialysis prior to discharge. 2. Leukocytosis: Resolved. No other signs of infection at this time. Blood cultures are negative. Antibiotics discontinued. 3. Hypertension: Blood pressure is improving. Labetalol, hydralazine IV as needed. Continue clonidine patch. 4. Diabetes mellitus, insulin-dependent: Continue 70/30 insulin. Monitor Accu- Cheks and cover with sliding scale insulin. 5. Nausea/vomiting: Significantly improved. Appreciate GI recommendations. Advanced to renal/diabetic diet. 6. GI bleed: Stool hemoccult is positive. Appreciate GI recommendations. EGD shows severe gastritis, esophagitis. Continue PPI. 7. DVT prophylaxis: PIETRO [place]. Discharge Planning Transfer to medical/surgical floor. Possible discharge soon pending arrangement of outpatient nephrology and dialysis. Manpreet Maldonado MD Oct 17, 2017 09:12
--- NOTE | 2017-10-17 10:13 | HHI.GIFU ---
Subjective Remarks Acute onset of nausea and vomiting after eating renal ADA diet this morning States he only wants popsicles and liquids now, still having some nausea Awake answers questions appropriately Afebrile (Lisa Burns) Objective Vitals I&O Vital Signs Date Time Temp Pulse Resp B/P (MAP) Pulse Ox O2 Delivery O2 Flow Rate FiO2 10/17/17 08:00 84 10/17/17 08:00 98.2 84 11 151/95 (113) 99 10/17/17 06:00 81 10/17/17 04:00 82 10/17/17 04:00 98.3 82 14 135/87 (103) 100 10/17/17 03:46 97 10/17/17 02:00 81 10/17/17 00:00 98.5 81 16 158/105 (122) 100 10/17/17 00:00 81 10/16/17 22:00 80 10/16/17 20:02 96 10/16/17 20:00 81 10/16/17 20:00 98.7 81 14 144/101 (115) 100 10/16/17 18:00 81 10/16/17 16:00 97.7 76 12 134/89 (104) 100 10/16/17 16:00 76 10/16/17 14:00 77 10/16/17 12:00 79 10/16/17 12:00 98.6 79 13 165/115 (132) 100 I/O 10/16/17 10/16/17 10/16/17 10/17/17 10/17/17 10/17/17 07:00 15:00 23:00 07:00 15:00 23:00 Intake Total 605 ml 105 ml 960 ml 240 ml Output Total 121 ml 150 ml Balance 484 ml 105 ml 960 ml 90 ml Intake Oral 200 ml 960 ml 240 ml IV Total 405 ml 105 ml Output Urine Total 120 ml 150 ml Stool Total 1 ml # Voids 3 # Bowel Movements 1 0 Laboratory Laboratory Tests Test 10/17/17 04:12 White Blood Count 10.7 Red Blood Count 3.90 Hemoglobin 10.5 Hematocrit 30.6 Mean Corpuscular Volume 78.6 Mean Corpuscular Hemoglobin 26.8 Mean Corpuscular Hemoglobin Concent 34.1 Red Cell Distribution Width 14.1 Platelet Count 509 Mean Platelet Volume 8.6 Neutrophils (%) (Auto) 62.4 Lymphocytes (%) (Auto) 21.4 Monocytes (%) (Auto) 11.1 Eosinophils (%) (Auto) 2.3 Basophils (%) (Auto) 2.8 Neutrophils # (Auto) 6.7 Lymphocytes # (Auto) 2.3 Monocytes # (Auto) 1.2 Eosinophils # (Auto) 0.2 Basophils # (Auto) 0.3 CBC Comment AUTO DIFF Differential Total Cells Counted 100 Neutrophils % (Manual) 66 Lymphocytes % 21 Monocytes % 9 Eosinophils % 3 Neutrophils # (Manual) 7.2 Myelocytes 1 Differential Comment FINAL DIFF MANUAL Platelet Estimate HIGH Platelet Morphology Comment NORMAL Tear Drop Cells 1+ Ovalocytes 2+ Keratocytes OCC Blood Urea Nitrogen 37 Creatinine 8.69 Random Glucose 202 Calcium Level 8.1 Sodium Level 131 Potassium Level 3.3 Chloride Level 91 Carbon Dioxide Level 31.6 Anion Gap 8 Estimat Glomerular Filtration Rate 9 Date/Time Source Procedure Growth Status 10/12/17 15:20 Blood Peripheral Aerobic Blood Culture - Preliminary NO GROWTH IN 4 DAYS Resulted 10/12/17 15:20 Blood Peripheral Anaerobic Blood Culture - Preliminary NO GROWTH IN 4 DAYS Resulted 10/14/17 12:10 Stool Stool Stool Occult Blood (RUBA) - Final HEMOCCULT POSITIVE Complete Imaging Last Impressions Abdomen Ultrasound 10/14/17 0000 Signed Impressions: Service Date/Time: September 07:47 - CONCLUSION: 1. Echogenic kidneys suggesting medical renal disease. 2. Possible 2 cm solid mass in the midpole of the left kidney. Recommend MRI abdomen for further evaluation. 3. Small left pleural effusion. Nehemias Costa MD Chest X-Ray 10/11/17 1634 Signed Impressions: Service Date/Time: Wednesday, October 11, 2017 17:01 - CONCLUSION: Cardiomegaly with moderate fluid overload. Kevan Lenz MD FACR Physical Exam HEENT: Pupils round and reactive to light; normocephalic; atraumatic; no jaundice. NECK: Neck is supple, CHEST: Chest is clear to auscultation and percussion. CARDIAC: Regular rate and rhythm ABDOMEN: Soft, nondistended, mild abdominal generalized tenderness bowel sounds active/ mildly hyperactive EXTREMITIES: No edema. SKIN: Normal; no rash; no jaundice. WARP DYEING TENDER: alert and oriented times three. Answer simple questions (Lisa Burns) Assessment and Plan Plan ASSESSMENT - n/v - continues to wax and wane. This a.m. after eating solid food breakfast renal diet ADA, patient had acute onset of nausea and vomiting again. Feels like at all he can eat right now is popsicles and some liquids - anemia - stable no obvious bleeding current hemoglobin 10.5 likely d/t chronic dz. HH stable and at his baseline. has had hematology eval on prior admission 04/2017. stool occult blood pending - DM, ESRD on HD 10/15/2017 EGD done shows Severe grade D esophagitis Severe gastritis Anemia could be related to chronic disease plus blood loss from the upper GI tract from above PLAN: no NSAIDs Pantoprazole 40 mg by mouth daily Follow-up biopsy in 7-10 days Better control of diabetes Monitor hemoglobin Diet change back to clear liquids, possible could transition to full liquids this p.m. if no further nausea or vomiting Supportive care Will need follow-up from GI after discharge This patient was seen by Dr. Leary, and myself, note was done on his behalf (Lisa Burns) Plan Patient was seen and examined, agree with above note, patient had nausea and vomiting today after breakfast and he asked for clear liquid, we will plan on gastric emptying study tomorrow, we'll hold off any pain medication, patient agreeable with the plan (Arlen Leary MD) Lisa Burns Oct 17, 2017 10:12 Arlen Leary MD Oct 17, 2017 12:21
[2017-10-17] MEDS: DEXT 5%-NACL 0.9% 1000 ML INJ 1,000 ML IV SCH (17:40)
[2017-10-18] VITALS (13 sets, daily range): BP systolic 144–177; BP diastolic 97–117; PULSE 76–87; RESP 15–20; TEMP 95.8–97.4; O2SAT 96–100
[2017-10-18] MEDS: cloNIDine HCL 0.1 MG TAB PO PRN (03:53)
[2017-10-18] MEDS: SODIUM CHLORIDE 0.9% FLUSH 10 ML FLUSH IV FLUSH SCH ×2 (08:18→20:13)
[2017-10-18] MEDS: INSULIN HUMAN NPH/R 70/30 1,000 UNITS/10 ML VIAL SQ SCH ×2 (08:18→17:00)
[2017-10-18] MEDS: hydrALAZINE HCL 50 MG TAB PO SCH ×3 (08:19→23:27)
[2017-10-18] MEDS: FOLIC ACID 1 MG TAB PO SCH (08:19)
[2017-10-18] MEDS: INSULIN ASPART SUPPLEMENTAL SCALE SQ SCH ×4 (08:19→20:12)
[2017-10-18] MEDS: PANTOPRAZOLE SOD 40 MG DELAYED RELEASE TAB PO SCH (08:20)
[2017-10-18] MEDS: CALCIUM ACETATE 667 MG CAP PO SCH ×3 (08:20→17:34)
[2017-10-18] MEDS: METOPROLOL TARTRATE 50 MG TAB PO SCH ×2 (08:20→20:13)
[2017-10-18 09:00] LABS: AUTOMATED NEUTROPHIL # 5.9 TH/MM3 (1.8-7.7); BASOPHIL # 0.2 TH/MM3 (0-0.2); BASOPHIL % 2.6 % (0.0-2.0); EOSINOPHIL # 0.2 TH/MM3 (0-0.4); EOSINOPHIL % 2.3 % (0.0-4.0); HEMATOCRIT 29.8 % (39.0-51.0); HEMOGLOBIN 10.1 GM/DL (13.0-17.0); LYMPHOCYTE # 1.9 TH/MM3 (1.0-4.8); MEAN CELL VOLUME 79.3 FL (80.0-100.0); MEAN CORPUSCULAR HEMOGLOBIN 26.8 PG (27.0-34.0); MEAN CORPUSCULAR HGB CONC 33.8 % (32.0-36.0); MEAN PLATELET VOLUME 7.8 FL (7.0-11.0); MONOCYTE # 0.9 TH/MM3 (0-0.9); NEUT % 64.1 % (16.0-70.0); PLATELET COUNT 463 TH/MM3 (150-450); RED BLOOD COUNT 3.76 MIL/MM3 (4.50-5.90); WHITE BLOOD COUNT 9.3 TH/MM3 (4.0-11.0)
[2017-10-18] MEDS ORDERED: VANCOMYCIN INJ 1,000 MG in SODIUM CHLOR 0.9% 250 ML INJ 250 ML IV SCH (09:30)
[2017-10-18] MEDS ORDERED: ceFAZolin 2 GM PREMIX 50 ML IV SCH (09:30)
--- NOTE | 2017-10-18 09:33 | HHI.NPPN ---
Subjective History of Present Illness The patient is a 27 yo [facility] male with PMHx of ESRD on HD, IDDM since age 10 & hypertension who presented to this facility on 10/11 with his mother with complaints of SOB, edema, fatigue, weakness, and nausea. Is ESRD and been receiving HD [facility] and at a facility in [place]. Last outpatient tx this past . States that he moved here on Wednesday without any dialysis arrangements. Mother claims they have been trying to get him into a local unit, but without success. He was admitted at this facility this past April with ARF and accelerated hypertension. Given his severe renal impairment, he underwent a kidney biopsy that confirmed diabetic nephropathy as well as glomerulosclerosis. He was started on HD in [place] in late August/early September. Is moving here permanently with his mother and is in need of dialysis arrangements locally. Currently, the patient is weak and fatigued. He received emergent HD last night given his pulmonary edema. BP has been quite elevated. Unable to tolerate po medications and is currently on Labetalol IV for BP control. Interval History Pt says he is feeling OK today. NV yesterday and on all liquid diet Pending HD today. (Lety Briggs) Review of Systems General Constitutional: Fatigue (Lety Briggs) Gastrointestinal Gastrointestinal: Nausea & Vomiting (Lety Briggs) Objective Data Data Vital Signs Date Time Temp Pulse Resp B/P (MAP) Pulse Ox O2 Delivery O2 Flow Rate FiO2 10/18/17 08:00 96.3 76 18 164/107 (126) 100 10/18/17 04:00 95.9 81 20 177/117 (137) 99 10/18/17 03:54 80 10/18/17 00:27 95.8 85 20 158/99 (118) 96 10/18/17 00:08 82 10/17/17 20:00 96.0 85 20 152/98 (116) 99 10/17/17 19:53 84 10/17/17 16:00 96.9 83 19 152/101 (118) 97 10/17/17 14:00 79 10/17/17 12:00 98.3 77 9 147/105 (119) 100 10/17/17 12:00 77 10/17/17 10:00 84 (Lety Briggs) -: 10/18/17 0813 10/17/17 0412 Imaging Last Impressions Abdomen Ultrasound 10/14/17 0000 Signed Impressions: Service Date/Time: September 07:47 - CONCLUSION: 1. Echogenic kidneys suggesting medical renal disease. 2. Possible 2 cm solid mass in the midpole of the left kidney. Recommend MRI abdomen for further evaluation. 3. Small left pleural effusion. Nehemias Costa MD Chest X-Ray 10/11/17 1634 Signed Impressions: Service Date/Time: Wednesday, October 11, 2017 17:01 - CONCLUSION: Cardiomegaly with moderate fluid overload. Kevan Lenz MD FACR Tubes & Lines: Vas-Cath Medication Review Current Medications Medications (Trade) Dose Ordered Sig/Ovi Route Start Time Stop Time Status Last Admin Sodium Chloride 1,000 ml @ 0 mls/hr Q0M PRN OTHER 10/11/17 19:05 10/12/17 00:00 (Heparin Inj) 8,000 units UNSCH PRN IV FLUSH 10/11/17 19:15 (Heparin Inj) 1,000 units Q1H PRN IV FLUSH 10/11/17 19:15 Sodium Chloride 1,000 ml @ 200 mls/hr Q5H PRN IV 10/11/17 19:05 Sodium Chloride 1,000 ml @ 0 mls/hr Q0M PRN OTHER 10/11/17 19:05 (Mannitol Inj) 12.5 gm UNSCH PRN IV 10/11/17 19:15 Albumin Human 100 ml @ 60 mls/hr UNSCH PRN IV 10/11/17 19:15 (NS Flush) 5 ml UNSCH PRN IV FLUSH 10/11/17 19:15 (Heparin Inj) UNSCH PRN .XX 10/11/17 19:15 10/15/17 09:17 (Gentamicin (Dialysis) Inj) 20 mg UNSCH PRN OTHER 10/11/17 19:15 10/15/17 09:18 (Zofran Inj) 4 mg UNSCH PRN IV PUSH 10/11/17 19:15 10/17/17 15:12 (Tylenol) 650 mg UNSCH PRN PO 10/11/17 19:15 (Benadryl) 25 mg UNSCH PRN PO 10/11/17 19:15 (Nitrostat Sl) 0.4 mg UNSCH PRN SL 10/11/17 19:15 (Catapres) 0.1 mg UNSCH PRN PO 10/11/17 19:15 10/18/17 03:53 (Gelfoam 12 Mm/7 Mm Top) 1 foam UNSCH PRN TOP 10/11/17 19:15 (NS Flush) 2 ml UNSCH PRN IV FLUSH 10/11/17 19:30 10/15/17 18:11 (NS Flush) 2 ml BID IV FLUSH 10/11/17 21:00 10/18/17 08:18 (Tylenol) 650 mg Q4H PRN PO 10/11/17 19:30 (Zofran Inj) 4 mg Q6H PRN IVP 10/11/17 19:30 10/15/17 05:44 (Narcan Inj) 0.4 mg UNSCH PRN IV PUSH 10/11/17 19:30 (D50w (Vial) Inj) 50 ml UNSCH PRN IV PUSH 10/11/17 19:30 10/12/17 02:09 (Glucagon Inj) 1 mg UNSCH PRN OTHER 10/11/17 19:30 (NovoLOG SUPPLEMENTAL SCALE) 1 ACHS SLIDING SCALE SQ 10/11/17 21:00 10/18/17 08:19 (Norvasc) 10 mg DAILY PO 10/12/17 09:00 10/18/17 08:19 (Folate) 0.5 mg DAILY PO 10/12/17 09:00 10/18/17 08:19 (Lasix) 60 mg DAILY@0900,1800 PO 10/11/17 20:15 Future Hold 10/11/17 20:15 (NovoLIN 70/30 INJ) 15 units DAILY@0800,1700 SQ 10/12/17 08:00 10/18/17 08:18 Miscellaneous Information Patient in critical care unit? Ass... Q361D .XX 10/11/17 21:00 10/11/17 21:00 (Trandate Inj) 10 mg Q4H PRN IV PUSH 10/12/17 08:15 10/17/17 05:19 (Apresoline Inj) 20 mg Q4H PRN IV PUSH 10/12/17 13:15 10/17/17 13:10 (Tigan Inj) 200 mg Q6H PRN IM 10/12/17 16:45 10/15/17 08:31 (Epogen Inj) 10,000 units UNSCH PRN IV PUSH 10/13/17 14:30 10/15/17 09:18 (Phoslo) 667 mg TID PO 10/13/17 18:00 10/18/17 08:20 (Lopressor) 50 mg Q12HR PO 10/14/17 21:00 10/18/17 08:20 (Apresoline) 50 mg Q12HR PO 10/14/17 21:00 10/18/17 08:19 (Catapres-Tts 0.2 Mg Patch.7d) 1 patch Q7D T-DERMAL 10/15/17 10:00 10/15/17 10:00 Miscellaneous Information 1 Q7D T-DERMAL 10/22/17 10:00 Sodium Chloride 1,000 ml @ 0 mls/hr Q0M PRN OTHER 10/15/17 16:33 Sodium Chloride 1,000 ml @ 200 mls/hr Q5H PRN IV 10/15/17 16:33 Sodium Chloride 1,000 ml @ 0 mls/hr Q0M PRN OTHER 10/15/17 16:33 Albumin Human 100 ml @ 60 mls/hr UNSCH PRN IV 10/15/17 16:45 (Protonix) 40 mg DAILY PO 10/16/17 09:00 10/18/17 08:20 Dextrose/Sodium Chloride 1,000 ml @ 40 mls/hr Q24H IV 10/17/17 17:45 10/17/17 17:40 Vancomycin HCl 1000 mg/Sodium Chloride 250 ml @ 250 mls/hr MEDICARE SALES REPRESENTATIVE IV 10/18/17 09:30 10/22/17 09:29 Cefazolin Sodium/ Dextrose 50 ml @ 100 mls/hr MEDICARE SALES REPRESENTATIVE IV 10/18/17 09:30 10/22/17 09:29 (Lety Briggs) Physical Exam General Appearance: No Acute Distress, Comfortable (Lety Briggs) Neck Neck Exam: Neck Supple (Lety Brgigs) Pulmonary Resp Exam: Clear Bilaterally, Breath Sounds Equal (Lety Briggs) Cardiology CV Exam: Regular, Normal Sinus Rhythm (Lety Briggs) Gastrointestinal/Abdomen GI Exam: Soft GI Remarks Tenderness to palpation RUQ (Lety rBiggs) Integumentary Skin Exam: Clear, Warm (Lety Briggs) Extremeties Extremities Exam: Trace Edema (periorbital) (Lety Briggs) Neurologic Neuro Exam: Awake (Lety Briggs) Psychiatric Psych Exam: Appropriate Responses (Lety Briggs) Assessment/Plan Discussed Condition With: Patient Problem List: (1) ESRD (end stage renal disease) on dialysis ICD Codes: N18.6 - End stage renal disease; Z99.2 - Dependence on renal dialysis Plan: Pending HD today. UF 2.5-3L as he does have edema today. Will place order for Perm Cath placement tomorrow. NPO after midnight. 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 I will continue to provide inpatient nephrology coverage during this admission as consulted. Medications should be adjusted for the patient's ESRD. Avoid gadolinium. (2) Pulmonary edema ICD Codes: J81.1 - Chronic pulmonary edema Plan: Volume status improved with dialysis. (3) IDDM (insulin dependent diabetes mellitus) ICD Codes: E11.9 - Type 2 diabetes mellitus without complications; Z79.4 - intermediate teacher (current) use of insulin Plan: Management as per primary team (4) Hypertension ICD Codes: I10 - Essential (primary) hypertension Plan: Improving (5) Leukocytosis ICD Codes: D72.829 - Elevated white blood cell count, unspecified Plan: Improved. (6) Anemia ICD Codes: D64.9 - Anemia, unspecified Status: Acute Plan: Iron supplementation as ordered. Plan I will provide in-house care during this inpatient hospital admission as consulted. From nephrology point of view patient could be discharged after PermCath placement to return to the care of his previous provider. (Lety Briggs) Plan The exam, history, and the medical decision-making described in the above note were completed with the assistance of the PAMaryan. I reviewed and agree with the findings presented. (Alyson Cantu MD) Lety Briggs Oct 18, 2017 09:33 Alyson Cantu MD Oct 18, 2017 16:17
[2017-10-18 09:40] LABS: BICARBONATE 29.3 MEQ/L (21.0-32.0); CALCIUM 8.6 MG/DL (8.5-10.1)
[2017-10-18 09:50] LABS: CREATININE 10.55 MG/DL (0.60-1.30)
[2017-10-18] MEDS: ONDANSETRON HCL 4 MG/2 ML VIAL IV PUSH PRN (11:58)
[2017-10-18] MEDS: HEPARIN SODIUM - IV 10,000 UNITS/10 ML VIAL PRN (11:59)
--- NOTE | 2017-10-18 14:14 | HHI.GIFU ---
Subjective Remarks Pt seen in dialysis. N/v improved. Has some lingering epigastric tenderness, "little bit." Eating ok. (Ginette Cuevas) Objective Vitals I&O Vital Signs Date Time Temp Pulse Resp B/P (MAP) Pulse Ox O2 Delivery O2 Flow Rate FiO2 10/18/17 13:33 99 10/18/17 12:00 97.4 76 18 144/97 (113) 99 10/18/17 08:00 96.3 76 18 164/107 (126) 100 10/18/17 04:00 95.9 81 20 177/117 (137) 99 10/18/17 03:54 80 10/18/17 00:27 95.8 85 20 158/99 (118) 96 10/18/17 00:08 82 10/17/17 20:00 96.0 85 20 152/98 (116) 99 10/17/17 19:53 84 10/17/17 16:00 96.9 83 19 152/101 (118) 97 I/O 10/17/17 10/17/17 10/17/17 10/18/17 10/18/17 10/18/17 07:00 15:00 23:00 07:00 15:00 23:00 Intake Total 240 ml 105 ml 320 ml 480 ml Output Total 150 ml 3 ml Balance 90 ml 105 ml 320 ml 477 ml Intake Oral 240 ml 120 ml 480 ml IV Total 105 ml 200 ml Output Urine Total 150 ml 3 ml # Bowel Movements 0 Laboratory Laboratory Tests Test 10/18/17 08:13 White Blood Count 9.3 Red Blood Count 3.76 Hemoglobin 10.1 Hematocrit 29.8 Mean Corpuscular Volume 79.3 Mean Corpuscular Hemoglobin 26.8 Mean Corpuscular Hemoglobin Concent 33.8 Red Cell Distribution Width 14.0 Platelet Count 463 Mean Platelet Volume 7.8 Neutrophils (%) (Auto) 64.1 Lymphocytes (%) (Auto) 21.0 Monocytes (%) (Auto) 10.0 Eosinophils (%) (Auto) 2.3 Basophils (%) (Auto) 2.6 Neutrophils # (Auto) 5.9 Lymphocytes # (Auto) 1.9 Monocytes # (Auto) 0.9 Eosinophils # (Auto) 0.2 Basophils # (Auto) 0.2 CBC Comment DIFF FINAL Differential Comment Blood Urea Nitrogen 40 Creatinine 10.55 Random Glucose 139 Calcium Level 8.6 Sodium Level 128 Potassium Level 3.7 Chloride Level 89 Carbon Dioxide Level 29.3 Anion Gap 10 Estimat Glomerular Filtration Rate 7 Date/Time Source Procedure Growth Status 10/12/17 15:20 Blood Peripheral Aerobic Blood Culture - Final NO GROWTH IN 5 DAYS Complete 10/12/17 15:20 Blood Peripheral Anaerobic Blood Culture - Final NO GROWTH IN 5 DAYS Complete 10/14/17 12:10 Stool Stool Stool Occult Blood (RUBA) - Final HEMOCCULT POSITIVE Complete Imaging Last Impressions Abdomen Ultrasound 10/14/17 0000 Signed Impressions: Service Date/Time: September 07:47 - CONCLUSION: 1. Echogenic kidneys suggesting medical renal disease. 2. Possible 2 cm solid mass in the midpole of the left kidney. Recommend MRI abdomen for further evaluation. 3. Small left pleural effusion. Nehemias Costa MD Chest X-Ray 10/11/17 1634 Signed Impressions: Service Date/Time: Wednesday, October 11, 2017 17:01 - CONCLUSION: Cardiomegaly with moderate fluid overload. Kevan Lenz MD FACR Physical Exam HEENT: Pupils round and reactive to light; normocephalic; atraumatic; no jaundice. CHEST: Chest is clear to auscultation and percussion. CARDIAC: Regular rate and rhythm ABDOMEN: Soft, nondistended,mild epigatric TTP bowel sounds+ EXTREMITIES: No edema. SKIN: Normal; no rash; no jaundice. 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 admits some epigastric TTP. - anemia - stable no obvious bleeding current hemoglobin 10.5 likely d/t chronic dz. HH stable and at his baseline. has had hematology eval on prior admission 04/2017. stool occult blood postitive - DM, ESRD on HD 10/15/2017 EGD done shows Severe grade D esophagitis, Severe gastritis. Anemia could be related to chronic disease plus blood loss from the upper GI tract from above 10/18/17 n/v improved today. will order GES. bx pending PLAN: advance diet, renal GES tomorrow NPO after midnight PPI await bx monitor labs Supportive care pt seen by myself and Dr Leary and this note is written on his behalf (Ginette Cuevas) Plan agree with above note, EGS in am, diet as tolerated (Arlen Leary MD) Ginette Cuevas Oct 18, 2017 14:14 Arlen Leary MD Oct 18, 2017 15:20
[2017-10-18] MEDS: ONDANSETRON HCL 4 MG/2 ML VIAL IVP PRN (16:40)
[2017-10-18] MEDS: DEXT 5%-NACL 0.9% 1000 ML INJ 1,000 ML IV SCH (17:34)
--- NOTE | 2017-10-18 21:52 | HHI.PR ---
Subjective Remarks 27M from [place] with ESRD. He was at Dialysis all day, is having some mild nausea, but requesting crackers and juice. Objective Vitals Vital Signs Date Time Temp Pulse Resp B/P (MAP) Pulse Ox O2 Delivery O2 Flow Rate FiO2 10/18/17 18:05 99 21 10/18/17 16:00 96.0 81 19 153/104 (120) 99 10/18/17 13:33 99 10/18/17 12:00 97.4 76 18 144/97 (113) 99 10/18/17 08:00 96.3 76 18 164/107 (126) 100 10/18/17 04:00 95.9 81 20 177/117 (137) 99 10/18/17 03:54 80 10/18/17 00:27 95.8 85 20 158/99 (118) 96 10/18/17 00:08 82 I/O 10/17/17 10/17/17 10/17/17 10/18/17 10/18/17 10/18/17 06:59 14:59 22:59 06:59 14:59 22:59 Intake Total 240 ml 105 ml 320 ml 480 ml 600 ml Output Total 150 ml 3 ml 200 ml Balance 90 ml 105 ml 320 ml 477 ml 400 ml Intake Oral 240 ml 120 ml 480 ml 600 ml IV Total 105 ml 200 ml Output Urine Total 150 ml 3 ml 200 ml # Bowel Movements 0 0 Result Diagram: 10/18/1781210/18/17812 Objective Remarks GENERAL: Well-nourished, well-developed patient. SKIN: Warm and dry. HEAD: Normocephalic. EYES: No scleral icterus. No injection or drainage. NECK: Supple, trachea midline. No JVD or lymphadenopathy. CARDIOVASCULAR: Regular rate and rhythm without murmurs, gallops, or rubs. RESPIRATORY: Breath sounds equal bilaterally. No accessory muscle use. GASTROINTESTINAL: Abdomen soft, non-tender, nondistended. EXTREMITIES: No cyanosis, or edema. NEUROLOGICAL: Awake, alert, and oriented x 3. Non-focal. Procedures None A/P Assessment and Plan ESRD with Dialysis Dialysis on MWF Will need Vas Cath changed out for Permacath prior to discharge Hypertension Will follow on day after dialysis before adjusting medication Nausea/Vomiting Nausea related to dialysis treatments, treat PRN with zofran Diabetes, Insulin Dependant Accuchecks with sliding scale insulin coverage Diabetic Renal diet GI Bleed Scope revealed gastritis, PPI recommended Appreciate GI consult DVT Prophylaxis SCD, Hunter chancee Anticoagulants held due to GI bleed Discharge Planning Patient is from [place], qualified for medicaid, but no path to medicare due to non-citizenship. Outpatient options for dialysis are rather precluded. Christiano Avalos MD Oct 18, 2017 21:52
[2017-10-19] VITALS (15 sets, daily range): BP systolic 144–163; BP diastolic 93–111; PULSE 75–89; RESP 15–19; TEMP 95.9–98.1; O2SAT 95–100
[2017-10-19] MEDS: INSULIN HUMAN NPH/R 70/30 1,000 UNITS/10 ML VIAL SQ SCH ×2 (07:38→16:08)
[2017-10-19] MEDS: INSULIN ASPART SUPPLEMENTAL SCALE SQ SCH ×4 (07:39→22:01)
[2017-10-19] MEDS: CALCIUM ACETATE 667 MG CAP PO SCH ×3 (07:40→17:30)
[2017-10-19] MEDS: SODIUM CHLORIDE 0.9% FLUSH 10 ML FLUSH IV FLUSH SCH ×2 (07:40→22:02)
[2017-10-19] MEDS: PANTOPRAZOLE SOD 40 MG DELAYED RELEASE TAB PO SCH (07:41)
[2017-10-19] MEDS: FOLIC ACID 1 MG TAB PO SCH (07:41)
[2017-10-19] MEDS: METOPROLOL TARTRATE 50 MG TAB PO SCH ×2 (07:41→22:02)
[2017-10-19] MEDS: hydrALAZINE HCL 50 MG TAB PO SCH ×2 (07:42→16:07)
[2017-10-19] MEDS: ONDANSETRON HCL 4 MG/2 ML VIAL IVP PRN ×2 (07:47→13:31)
[2017-10-19 07:55] LABS: ALBUMIN 2.3 GM/DL (3.4-5.0); BICARBONATE 29.4 MEQ/L (21.0-32.0); CALCIUM 8.1 MG/DL (8.5-10.1); CREATININE 6.71 MG/DL (0.60-1.30); PHOSPHORUS 3.3 MG/DL (2.5-4.9)
[2017-10-19] MEDS ORDERED: MIDAZOLAM HCL 2 MG/2 ML VIAL ONE (08:22)
--- NOTE | 2017-10-19 09:10 | PD.RAD ---
Post Procedure Progress Note Pre Procedure Diagnosis: (1) Acute renal failure Post Procedure Diagnosis: (1) Acute renal failure Procedure Date: Oct 19, 2017 Supervising Radiologist: Darshan Aguilar Proceduralist/Assist: Liam Hilton RT(R), RT Jesse(R) Anesthesia: Conscious Sedation Plan of Activity Patient to Unit: [facility] Patient Condition: Good See PACS Report for procedural detail/treatment Darshan Aguilar MD Oct 19, 2017 09:10
[2017-10-19] MEDS ORDERED: SODIUM CHLORIDE 0.9% FLUSH 10 ML FLUSH IV FLUSH PRN (09:15)
[2017-10-19] MEDS ORDERED: HEPARIN SODIUM - IV 2,000 UNITS/2 ML VIAL IV FLUSH PRN (09:15)
--- NOTE | 2017-10-19 09:41 | RADRPT ---
EXAM DATE/TIME: 10/19/2017 00:00 [facility] COMPARISON: No previous studies available for comparison. INDICATIONS : Patient presents with endstage renal disease in need of non tunneled catheter removal for tunneled c atheter placement for dailysis. MEDICAL HISTORY : Insulin-dependent diabetes mellitus End-stage renal disease on dialysis Hypertension SURGICAL HISTORY : Renal biopsy ENCOUNTER: Initial ACUITY: 1 week PAIN SCORE: 0/10 LOCATION: N/A IMAGE SERIES: PROCEDURE : 1. Temporary central venous catheter removal. The prescribed catheter was removed intact and hemostasis was achieved with direct pressure. The sit e was dressed appropriately. The patient tolerated the procedure well. CONCLUSION: Uncomplicated catheter removal. Darshan Aguilar MD on October 19, 2017 at 9:37 Board Certified Radiologist. This report was verified electronically.
--- NOTE | 2017-10-19 09:42 | RADRPT ---
EXAM DATE/TIME: 10/19/2017 09:01 [facility] COMPARISON: No previous studies available for comparison. INDICATIONS : Patient presents with endstage renal disease in need of non tunneled catheter removal for tunneled c atheter placement for dailysis. MEDICAL HISTORY : Insulin-dependent diabetes mellitus End-stage renal disease on dialysis Hypertension SURGICAL HISTORY : Renal biopsy ENCOUNTER: Initial ACUITY: 1 week PAIN SCORE: 0/10 LOCATION: N/A FLUORO TIME: 1.1 minutes IMAGE SERIES: 0 SEDATION TIME: 30 minutes ACCESS: Right internal jugular vein SEDATION: 1.) 1.5 mg midazolam (Versed) IV 2.) 75 mcg fentanyl (Sublimaze) IV Prophylactic antibiotics were administered with appropriate pre-procedure timing. Vancomycin within 2 hours of procedure, Ancef (or alternative) within 1 hour of procedure. DEVICE: 1. 15 English dual lumen 19 cm Lan II Plus catheter PROCEDURE : 1. Ultrasound-guided venipuncture. 2. PermaCath placement. 3. Conscious sedation with continuous EKG and oximetry monitoring. The risks, benefits and alternatives to the procedure were explained and verbal and written consent w as obtained. The site was prepped in sterile fashion. Full sterile technique was used, including ca p, mask, sterile gloves and gown and a large sterile sheet. Hand hygiene and 2% chlorhexidine and/or betadine/alcohol prep was utilized per protocol for cutaneous antisepsis. Sterile gel and sterile p robe cover were utilized for ultrasound guidance. The skin and subcutaneous tissues were infiltrated with local anesthetic solution. With ultrasound and fluoroscopic guidance a dermatotomy was created over the prescribed vein. A micr opuncture set was used to access the targeted vein and serial dilatation was performed to accept the prescribed length catheter. A subcutaneous tunnel was created in a retrograde fashion the catheter w as pulled through the tunnel. The catheter was flushed and assembled and locked with heparin. The c atheter was sutured in place. Conscious sedation was performed with the prescribed dosages and duration as above in the presence of an independent trained radiology nurse to assist in the monitoring of the patient. EKG and oximetry remained stable throughout the procedure. The patient tolerated the procedure well and there were n o complications. The patient was sent to post anesthesia recovery in stable condition. CONCLUSION: Uncomplicated PermaCath placement as above. Darshan Aguilar MD on October 19, 2017 at 9:38 Board Certified Radiologist. This report was verified electronically.
[2017-10-19] MEDS: LABETALOL HCL 100 MG/20 ML VIAL IV PUSH PRN (10:43)
--- NOTE | 2017-10-19 14:00 | HHI.GIFU ---
Subjective Remarks Pt resting in bed. says he went for GES. Just threw up but wants to eat denies nausea at this time Objective Vitals I&O Vital Signs Date Time Temp Pulse Resp B/P (MAP) Pulse Ox O2 Delivery O2 Flow Rate FiO2 10/19/17 12:00 95.9 77 19 162/107 (125) 100 10/19/17 11:50 76 18 144/94 (111) 96 10/19/17 11:20 78 18 144/96 (112) 97 10/19/17 11:00 80 18 147/99 (115) 97 10/19/17 10:50 75 18 150/107 (121) 97 10/19/17 10:40 75 18 150/107 (121) 97 10/19/17 10:20 78 18 154/110 (125) 97 10/19/17 09:40 77 18 155/107 (123) 97 10/19/17 09:25 98.1 80 18 150/99 (116) 96 10/19/17 08:00 97.3 81 19 163/111 (128) 96 10/19/17 04:00 96.3 79 15 144/93 (110) 97 10/19/17 00:00 96.4 77 15 148/98 (115) 99 10/18/17 23:52 76 10/18/17 22:05 78 10/18/17 20:00 96.3 77 15 163/111 (128) 99 10/18/17 19:49 77 10/18/17 18:05 99 21 10/18/17 16:00 96.0 81 19 153/104 (120) 99 I/O 10/18/17 10/18/17 10/18/17 10/19/17 10/19/17 10/19/17 07:00 15:00 23:00 07:00 15:00 23:00 Intake Total 480 ml 600 ml Output Total 3 ml 200 ml 100 ml 300 ml Balance 477 ml 400 ml -100 ml -300 ml Intake Oral 480 ml 600 ml Output Urine Total 3 ml 200 ml 100 ml Emesis 300 ml # Voids 1 # Bowel Movements 0 0 Laboratory Laboratory Tests Test 10/19/17 06:25 Blood Urea Nitrogen 18 Creatinine 6.71 Random Glucose 311 Albumin 2.3 Calcium Level 8.1 Phosphorus Level 3.3 Sodium Level 128 Potassium Level 4.1 Chloride Level 89 Carbon Dioxide Level 29.4 Anion Gap 10 Estimat Glomerular Filtration Rate 12 Date/Time Source Procedure Growth Status 10/12/17 15:20 Blood Peripheral Aerobic Blood Culture - Final NO GROWTH IN 5 DAYS Complete 10/12/17 15:20 Blood Peripheral Anaerobic Blood Culture - Final NO GROWTH IN 5 DAYS Complete 10/14/17 12:10 Stool Stool Stool Occult Blood (RUBA) - Final HEMOCCULT POSITIVE Complete Imaging Last Impressions Central Venous Line 10/19/17 0000 Signed Impressions: Service Date/Time: Thursday, October 19, 2017 00:00 - CONCLUSION: Uncomplicated catheter removal. Darshan Aguilar MD Catheter Placement X-Ray 10/19/17 0000 Signed Impressions: Service Date/Time: Thursday, October 19, 2017 09:01 - CONCLUSION: Uncomplicated PermaCath placement as above. Darshan Aguilar MD Abdomen Ultrasound 10/14/17 0000 Signed Impressions: Service Date/Time: September 07:47 - CONCLUSION: 1. Echogenic kidneys suggesting medical renal disease. 2. Possible 2 cm solid mass in the midpole of the left kidney. Recommend MRI abdomen for further evaluation. 3. Small left pleural effusion. Nehemias Costa MD Chest X-Ray 10/11/17 1634 Signed Impressions: Service Date/Time: Wednesday, October 11, 2017 17:01 - CONCLUSION: Cardiomegaly with moderate fluid overload. Kevan Lenz MD FACR Physical Exam HEENT: Pupils round and reactive to light; normocephalic; atraumatic; no jaundice. CHEST: Chest is clear to auscultation and percussion. CARDIAC: Regular rate and rhythm ABDOMEN: Soft, nondistended,nontender, bowel sounds+ EXTREMITIES: No edema. SKIN: Normal; no rash; no jaundice. 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 admits some epigastric TTP. - anemia - stable no obvious bleeding current hemoglobin 10.5 likely d/t chronic dz. HH stable and at his baseline. has had hematology eval on prior admission 04/2017. stool occult blood postitive - DM, ESRD on HD 10/15/2017 EGD done shows Severe grade D esophagitis, Severe gastritis. Anemia could be related to chronic disease plus blood loss from the upper GI tract from above 10/18/17 n/v improved today. will order GES. bx pending 10/19/17 just threw up but says he feels fine. ?went for GES PLAN: BALB[place] await GES PPI await bx monitor labs Supportive care pt seen by myself and Dr Leary and this note is written on his behalf Ginette Cuevas Oct 19, 2017 14:00
[2017-10-19] MEDS: LOSARTAN 25 MG TAB PO SCH (16:06)
[2017-10-19] MEDS: DEXT 5%-NACL 0.9% 1000 ML INJ 1,000 ML IV SCH (16:07)
--- NOTE | 2017-10-19 17:55 | HHI.PR ---
Subjective Remarks Pt has had some nausea and vomiting episodes yesterday then again this morning. He is still interested in food. Delayed gastric emptying test scheduled for tomorrow. Objective Vitals Vital Signs Date Time Temp Pulse Resp B/P (MAP) Pulse Ox O2 Delivery O2 Flow Rate FiO2 10/19/17 16:00 96.5 78 18 153/106 (122) 95 10/19/17 12:00 95.9 77 19 162/107 (125) 100 10/19/17 11:50 76 18 144/94 (111) 96 10/19/17 11:20 78 18 144/96 (112) 97 10/19/17 11:00 80 18 147/99 (115) 97 10/19/17 10:50 75 18 150/107 (121) 97 10/19/17 10:40 75 18 150/107 (121) 97 10/19/17 10:20 78 18 154/110 (125) 97 10/19/17 09:40 77 18 155/107 (123) 97 10/19/17 09:25 98.1 80 18 150/99 (116) 96 10/19/17 08:00 97.3 81 19 163/111 (128) 96 10/19/17 04:00 96.3 79 15 144/93 (110) 97 10/19/17 00:00 96.4 77 15 148/98 (115) 99 10/18/17 23:52 76 10/18/17 22:05 78 10/18/17 20:00 96.3 77 15 163/111 (128) 99 10/18/17 19:49 77 10/18/17 18:05 99 21 I/O 10/18/17 10/18/17 10/18/17 10/19/17 10/19/17 10/19/17 07:00 15:00 23:00 07:00 15:00 23:00 Intake Total 480 ml 600 ml Output Total 3 ml 200 ml 100 ml 300 ml Balance 477 ml 400 ml -100 ml -300 ml Intake Oral 480 ml 600 ml Output Urine Total 3 ml 200 ml 100 ml Emesis 300 ml # Voids 1 # Bowel Movements 0 0 Result Diagram: 10/18/17 0813 10/19/17 0625 Objective Remarks GENERAL: Well-nourished, well-developed patient. SKIN: Warm and dry. HEAD: Normocephalic. EYES: No scleral icterus. No injection or drainage. NECK: Supple, trachea midline. No JVD or lymphadenopathy. CARDIOVASCULAR: Regular rate and rhythm without murmurs, gallops, or rubs. RESPIRATORY: Breath sounds equal bilaterally. No accessory muscle use. GASTROINTESTINAL: Abdomen soft, non-tender, nondistended. EXTREMITIES: No cyanosis, or edema. NEUROLOGICAL: Awake, alert, and oriented x 3. Non-focal. Procedures None A/P Assessment and Plan ESRD with Dialysis Dialysis on MWF Will need Vas Cath changed out for Permacath prior to discharge Hypertension Losartan added to current regiment. Nausea/Vomiting Nausea related to dialysis treatments, treat PRN with zofran Swallow follow through study scheduled for tomorrow Diabetes, Insulin Dependant Accuchecks with sliding scale insulin coverage Diabetic Renal diet GI Bleed Scope revealed gastritis, PPI recommended Appreciate GI consult DVT Prophylaxis SCD, Hunter latif Anticoagulants held due to GI bleed Discharge Planning Patient is from [place], qualified for medicaid, but no path to medicare due to non-citizenship. Outpatient options for dialysis are rather precluded. Christiano Avalos MD Oct 19, 2017 17:55
[2017-10-20] VITALS (7 sets, daily range): BP systolic 122–164; BP diastolic 82–106; PULSE 76–88; RESP 16–18; TEMP 96.7–98.9; O2SAT 98–100
[2017-10-20] MEDS: hydrALAZINE HCL 50 MG TAB PO SCH ×3 (00:19→18:45)
[2017-10-20] MEDS: INSULIN ASPART SUPPLEMENTAL SCALE SQ SCH ×4 (08:00→21:44)
[2017-10-20] MEDS: SODIUM CHLORIDE 0.9% FLUSH 10 ML FLUSH IV FLUSH SCH ×2 (08:17→21:44)
[2017-10-20] MEDS: ONDANSETRON HCL 4 MG/2 ML VIAL IVP PRN ×2 (08:17→21:41)
[2017-10-20] MEDS: CALCIUM ACETATE 667 MG CAP PO SCH ×3 (08:19→18:45)
[2017-10-20] MEDS: METOPROLOL TARTRATE 50 MG TAB PO SCH ×2 (08:34→21:43)
[2017-10-20] MEDS: PANTOPRAZOLE SOD 40 MG DELAYED RELEASE TAB PO SCH (08:34)
[2017-10-20] MEDS: LOSARTAN 25 MG TAB PO SCH (08:34)
[2017-10-20] MEDS: FOLIC ACID 1 MG TAB PO SCH (08:34)
[2017-10-20] MEDS: INSULIN HUMAN NPH/R 70/30 1,000 UNITS/10 ML VIAL SQ SCH ×2 (08:35→17:00)
--- NOTE | 2017-10-20 16:51 | HHI.GIFU ---
Subjective Remarks Pt seen in dialysis. He says he went for GES and threw up the egg. (Ginette Cuevas) Objective Vitals I&O Vital Signs Date Time Temp Pulse Resp B/P (MAP) Pulse Ox O2 Delivery O2 Flow Rate FiO2 10/20/17 08:00 97.1 78 16 164/106 (125) 98 10/20/17 04:00 98.9 76 16 156/102 (120) 98 10/20/17 03:43 77 10/20/17 00:00 98.7 83 16 147/100 (116) 98 10/19/17 23:54 80 10/19/17 20:00 96.8 89 16 151/100 (117) 98 I/O 10/19/17 10/19/17 10/19/17 10/20/17 10/20/17 10/20/17 07:00 15:00 23:00 07:00 15:00 23:00 Intake Total 530 ml 0 ml Output Total 100 ml 300 ml 100 ml Balance -100 ml -300 ml 430 ml 0 ml Intake Oral 530 ml 0 ml Output Urine Total 100 ml 100 ml Emesis 300 ml # Voids 1 0 # Bowel Movements 0 0 0 Laboratory Date/Time Source Procedure Growth Status 10/12/17 15:20 Blood Peripheral Aerobic Blood Culture - Final NO GROWTH IN 5 DAYS Complete 10/12/17 15:20 Blood Peripheral Anaerobic Blood Culture - Final NO GROWTH IN 5 DAYS Complete 10/14/17 12:10 Stool Stool Stool Occult Blood (RUBA) - Final HEMOCCULT POSITIVE Complete Imaging Last Impressions Central Venous Line 10/19/17 0000 Signed Impressions: Service Date/Time: Thursday, October 19, 2017 00:00 - CONCLUSION: Uncomplicated catheter removal. Darshan Aguilar MD Catheter Placement X-Ray 10/19/17 0000 Signed Impressions: Service Date/Time: Thursday, October 19, 2017 09:01 - CONCLUSION: Uncomplicated PermaCath placement as above. Darshan Aguilar MD Abdomen Ultrasound 10/14/17 0000 Signed Impressions: Service Date/Time: September 07:47 - CONCLUSION: 1. Echogenic kidneys suggesting medical renal disease. 2. Possible 2 cm solid mass in the midpole of the left kidney. Recommend MRI abdomen for further evaluation. 3. Small left pleural effusion. Nehemias Costa MD Chest X-Ray 10/11/17 1634 Signed Impressions: Service Date/Time: Wednesday, October 11, 2017 17:01 - CONCLUSION: Cardiomegaly with moderate fluid overload. Kevan Lenz MD FACR Physical Exam HEENT: PERRL; normocephalic; atraumatic; no jaundice. CHEST: CTA CARDIAC: RRR ABDOMEN: Soft, nondistended,nontender, bowel sounds+ EXTREMITIES: No edema. SKIN: Normal; no rash; no jaundice. TAX SERVICES SPECIALIST: lethargic, answers questions appropriately (Ginette Cuevas) Assessment and Plan Plan ASSESSMENT - n/v - improved today. admits some epigastric TTP. - anemia - stable no obvious bleeding current hemoglobin 10.5 likely d/t chronic dz. HH stable and at his baseline. has had hematology eval on prior admission 04/2017. stool occult blood postitive - DM, ESRD on HD 10/15/2017 EGD done shows Severe grade D esophagitis, Severe gastritis. Anemia could be related to chronic disease plus blood loss from the upper GI tract from above 10/18/17 n/v improved today. will order GES. bx pending 10/19/17 just threw up but says he feels fine. ?went for GES 10/20/17 went for GES and vomited. Not sure if there will be report, none yet. bx from EGD showed esophagitis. PLAN: BALBINA trial reglan 5mg TID PPI monitor labs Supportive care pt seen by myself and Dr Leary and this note is written on his behalf (Ginette Cuevas) Plan Patient was seen and examined, most likely gastroparesis, he vomited during gastric emptying study, will give him a trial of Reglan small dose because of his kidney disease, see if that would help, further plan depends on how he is doing (Arlen Leary MD) Ginette Cuevas Oct 20, 2017 16:51 Arlen Leary MD Oct 20, 2017 17:03
[2017-10-20] MEDS: METOCLOPRAMIDE HCL 10 MG/2 ML VIAL IV PUSH SCH (17:00)
[2017-10-20] MEDS ORDERED: REMOVE OLD CATAPRES (CLONIDINE) PATCH T-DERMAL SCH (17:00)
--- NOTE | 2017-10-20 17:53 | HHI.NPPN ---
Subjective History of Present Illness The patient is a 27 yo [facility] male with PMHx of ESRD on HD, IDDM since age 10 & hypertension who presented to this facility on 10/11 with his mother with complaints of SOB, edema, fatigue, weakness, and nausea. Is ESRD and been receiving HD [facility] and at a facility in [place]. Last outpatient tx this past . States that he moved here on Wednesday without any dialysis arrangements. Mother claims they have been trying to get him into a local unit, but without success. He was admitted at this facility this past April with ARF and accelerated hypertension. Given his severe renal impairment, he underwent a kidney biopsy that confirmed diabetic nephropathy as well as glomerulosclerosis. He was started on HD in [place] in late August/early September. Is moving here permanently with his mother and is in need of dialysis arrangements locally. Currently, the patient is weak and fatigued. He received emergent HD last night given his pulmonary edema. BP has been quite elevated. Unable to tolerate po medications and is currently on Labetalol IV for BP control. Interval History Patient seen postdialysis. No verbal complaints. Review of Systems General Constitutional: Fatigue Gastrointestinal Gastrointestinal: Nausea & Vomiting Objective Data Data 10/20/17 10/21/17 19:00 07:00 Output Total 2500 ml Balance -2500 ml Hemodialysis 2500 ml Vital Signs Date Time Temp Pulse Resp B/P (MAP) Pulse Ox O2 Delivery O2 Flow Rate FiO2 10/20/17 08:00 97.1 78 16 164/106 (125) 98 10/20/17 04:00 98.9 76 16 156/102 (120) 98 10/20/17 03:43 77 10/20/17 00:00 98.7 83 16 147/100 (116) 98 10/19/17 23:54 80 10/19/17 20:00 96.8 89 16 151/100 (117) 98 -: 10/18/17 0813 10/19/17 0625 Tubes & Lines: Vas-Cath Physical Exam General Appearance: No Acute Distress, Comfortable Neck Neck Exam: Neck Supple Pulmonary Resp Exam: Clear Bilaterally, Breath Sounds Equal Cardiology CV Exam: Regular, Normal Sinus Rhythm Gastrointestinal/Abdomen GI Exam: Soft Integumentary Skin Exam: Clear, Warm Extremeties Extremities Exam: Trace Edema (periorbital) Neurologic Neuro Exam: Awake Psychiatric Psych Exam: Appropriate Responses Assessment/Plan Discussed Condition With: Patient Problem List: (1) ESRD (end stage renal disease) on dialysis ICD Codes: N18.6 - End stage renal disease; Z99.2 - Dependence on renal dialysis Plan: Hemodialysis PermCath now in place. beauty shop manager will have to look into outpatient options for this patient as far as dialysis is concerned. The patient did have an established dialysis unit and therapy assistant prior to this admission and [place]. I will continue to provide inpatient nephrology coverage during this admission as consulted. Medications should be adjusted for the patient's ESRD. Avoid gadolinium. (2) Pulmonary edema ICD Codes: J81.1 - Chronic pulmonary edema Plan: Volume status improved with dialysis. (3) IDDM (insulin dependent diabetes mellitus) ICD Codes: E11.9 - Type 2 diabetes mellitus without complications; Z79.4 - USP (current) use of insulin Plan: Management as per primary team (4) Hypertension ICD Codes: I10 - Essential (primary) hypertension Plan: Improving (5) Anemia ICD Codes: D64.9 - Anemia, unspecified Status: Acute Plan: Iron supplementation as ordered. Alyson Cantu MD Oct 20, 2017 17:53
--- NOTE | 2017-10-20 19:07 | HHI.PR ---
Subjective Remarks Pt was scheduled for a swallow follow through test, but was unable to hold down his eggs, so test could not be performed. Objective Vitals Vital Signs Date Time Temp Pulse Resp B/P (MAP) Pulse Ox O2 Delivery O2 Flow Rate FiO2 10/20/17 18:28 97.8 79 18 149/99 (116) 99 10/20/17 08:00 97.1 78 16 164/106 (125) 98 10/20/17 04:00 98.9 76 16 156/102 (120) 98 10/20/17 03:43 77 10/20/17 00:00 98.7 83 16 147/100 (116) 98 10/19/17 23:54 80 10/19/17 20:00 96.8 89 16 151/100 (117) 98 I/O 10/19/17 10/19/17 10/19/17 10/20/17 10/20/17 10/20/17 07:00 15:00 23:00 07:00 15:00 23:00 Intake Total 530 ml 0 ml Output Total 100 ml 300 ml 100 ml 2500 ml Balance -100 ml -300 ml 430 ml 0 ml -2500 ml Intake Oral 530 ml 0 ml Output Urine Total 100 ml 100 ml Emesis 300 ml Hemodialysis 2500 ml # Voids 1 0 # Bowel Movements 0 0 0 Result Diagram: 10/18/17 0813 10/19/17 0625 Objective Remarks GENERAL: Well-nourished, well-developed patient. SKIN: Warm and dry. HEAD: Normocephalic. EYES: No scleral icterus. No injection or drainage. NECK: Supple, trachea midline. No JVD or lymphadenopathy. CARDIOVASCULAR: Regular rate and rhythm without murmurs, gallops, or rubs. RESPIRATORY: Breath sounds equal bilaterally. No accessory muscle use. GASTROINTESTINAL: Abdomen soft, non-tender, nondistended. EXTREMITIES: No cyanosis, or edema. NEUROLOGICAL: Awake, alert, and oriented x 3. Non-focal. Procedures None A/P Assessment and Plan ESRD with Dialysis Dialysis on MWF Will need Vas Cath changed out for Permacath prior to discharge Hypertension Losartan added to current regiment, BP improved slightly Nausea/Vomiting Nausea related to dialysis treatments, treat PRN with zofran Swallow follow through study unable to be performed due to vomiting up eggs Consider Reglan Diabetes, Insulin Dependant Accuchecks with sliding scale insulin coverage Diabetic Renal diet GI Bleed Scope revealed gastritis, PPI recommended Appreciate GI consult DVT Prophylaxis SCD, Hunter latif Anticoagulants held due to GI bleed Discharge Planning Patient is from [place], qualified for medicaid, but no path to medicare due to non-citizenship. Outpatient options for dialysis are rather precluded. Christiano Avalos MD Oct 20, 2017 19:07
[2017-10-20] MEDS: DEXT 5%-NACL 0.9% 1000 ML INJ 1,000 ML IV SCH (21:45)
[2017-10-21] VITALS (7 sets, daily range): BP systolic 121–152; BP diastolic 78–92; PULSE 80–86; RESP 18; TEMP 97.4–98.1; O2SAT 96–99
[2017-10-21] MEDS: hydrALAZINE HCL 50 MG TAB PO SCH ×3 (00:16→17:07)
[2017-10-21] MEDS: METOCLOPRAMIDE HCL 10 MG/2 ML VIAL IV PUSH SCH ×4 (00:17→17:00)
[2017-10-21] MEDS: INSULIN ASPART SUPPLEMENTAL SCALE SQ SCH ×4 (08:00→20:12)
[2017-10-21] MEDS: METOPROLOL TARTRATE 50 MG TAB PO SCH ×2 (08:04→20:12)
[2017-10-21] MEDS: FOLIC ACID 1 MG TAB PO SCH (08:04)
[2017-10-21] MEDS: PANTOPRAZOLE SOD 40 MG DELAYED RELEASE TAB PO SCH (08:04)
[2017-10-21] MEDS: LOSARTAN 25 MG TAB PO SCH (08:04)
[2017-10-21] MEDS: CALCIUM ACETATE 667 MG CAP PO SCH ×3 (08:04→17:07)
[2017-10-21] MEDS: SODIUM CHLORIDE 0.9% FLUSH 10 ML FLUSH IV FLUSH SCH ×2 (08:09→20:12)
[2017-10-21] MEDS: INSULIN HUMAN NPH/R 70/30 1,000 UNITS/10 ML VIAL SQ SCH (08:09)
[2017-10-21] MEDS ORDERED: INSULIN HUMAN NPH/R 70/30 1,000 UNITS/10 ML VIAL SQ ONE (12:15)
--- NOTE | 2017-10-21 13:25 | HHI.GIFU ---
Subjective Remarks Pt resting in bed, waiting on his lunch tray to arrive. Denies nausea, vomiting. Tolerating food for breakfast. Reports BM today. (Jana Herbert) Objective Vitals I&O Vital Signs Date Time Temp Pulse Resp B/P (MAP) Pulse Ox O2 Delivery O2 Flow Rate FiO2 10/21/17 12:00 98.1 82 18 139/92 (108) 96 10/21/17 08:00 97.9 86 18 152/91 (111) 97 10/21/17 04:31 85 10/21/17 04:00 97.9 83 18 152/92 (112) 98 10/21/17 00:00 97.4 83 18 136/91 (106) 99 10/20/17 23:45 82 10/20/17 20:00 96.7 88 18 122/82 (95) 100 10/20/17 18:28 97.8 79 18 149/99 (116) 99 I/O 10/20/17 10/20/17 10/20/17 10/21/17 10/21/17 10/21/17 07:00 15:00 23:00 07:00 15:00 23:00 Intake Total 0 ml 120 ml Output Total 2500 ml Balance 0 ml -2500 ml 120 ml Intake Oral 0 ml 120 ml Hemodialysis 2500 ml # Voids 0 0 # Bowel Movements 0 0 Laboratory Laboratory Tests Test 10/21/17 10:35 Random Glucose 525 Date/Time Source Procedure Growth Status 10/12/17 15:20 Blood Peripheral Aerobic Blood Culture - Final NO GROWTH IN 5 DAYS Complete 10/12/17 15:20 Blood Peripheral Anaerobic Blood Culture - Final NO GROWTH IN 5 DAYS Complete 10/14/17 12:10 Stool Stool Stool Occult Blood (RUBA) - Final HEMOCCULT POSITIVE Complete Physical Exam HEENT:Normocephalic; atraumatic CHEST: CTA CARDIAC: RRR ABDOMEN: Soft, nondistended,nontender, bowel sounds active EXTREMITIES: No edema. SKIN: Normal; no rash; no jaundice. CAREER RESOURCE SPECIALIST: Alert and oriented x 3 (Jana Herbert) Assessment and Plan Plan - n/v - improved today. admits some epigastric TTP. - anemia - stable no obvious bleeding current hemoglobin 10.5 likely d/t chronic dz. HH stable and at his baseline. has had hematology eval on prior admission 04/2017. stool occult blood postitive - DM, ESRD on HD 10/15/2017 EGD done shows Severe grade D esophagitis, Severe gastritis. Anemia could be related to chronic disease plus blood loss from the upper GI tract from above 10/18/17 n/v improved today. will order GES. bx pending 10/19/17 just threw up but says he feels fine. ?went for GES 10/20/17 went for GES and vomited. Not sure if there will be report, none yet. bx from EGD showed esophagitis. (10/21) Pt started on trial of Reglan yesterday, reports improvement in symptoms. Denies nausea, vomiting. Currently on renal diet, tolerated breakfast. Based on improvement with Reglan, symptoms likely secondary to gastroparesis. Risk factors include DM with ESRD on HD. He was unable to complete GES yesterday due to vomiting, no report. Anemia- likely multifactorial, renal insufficiency. No obvious GIB at this time, positive Hemoccult on 10/14. However, no H/H since Oct 18. Will repeat labs. Plan: Continue Reglan Advised of gastroparesis diet, eat foods that are easy to digest, chew food well , small meals Repeat H/H Further recommendations based on clinical course Pt has been seen and examined by myself and Dr. Paula and this note is written on his behalf (Jana Herbert) Physician Comments Seen and examined with NOHEMI, feeling better today. GES not completed yet, will try again tomorrow. (Anant Paula MD) Jana Herbert Oct 21, 2017 13:25 Anant Paula MD Oct 21, 2017 15:04
[2017-10-21 14:47] LABS: AUTOMATED NEUTROPHIL # 7.9 TH/MM3 (1.8-7.7); BASOPHIL # 0.2 TH/MM3 (0-0.2); BASOPHIL % 1.6 % (0.0-2.0); EOSINOPHIL # 0.2 TH/MM3 (0-0.4); EOSINOPHIL % 1.5 % (0.0-4.0); HEMATOCRIT 25.6 % (39.0-51.0); HEMOGLOBIN 8.5 GM/DL (13.0-17.0); MEAN CORPUSCULAR HEMOGLOBIN 26.5 PG (27.0-34.0); MEAN CORPUSCULAR HGB CONC 33.1 % (32.0-36.0); MEAN PLATELET VOLUME 7.8 FL (7.0-11.0); MONO % 12.4 % (0.0-8.0); MONOCYTE # 1.4 TH/MM3 (0-0.9); NEUT % 67.5 % (16.0-70.0); PLATELET COUNT 397 TH/MM3 (150-450); RED CELL DISTRIBUTION WIDTH 14.3 % (11.6-17.2); WHITE BLOOD COUNT 11.7 TH/MM3 (4.0-11.0)
--- NOTE | 2017-10-21 15:10 | HHI.PR ---
Subjective Remarks Doing okay has not had a nausea or vomiting this morning. Objective Vitals Vital Signs Date Time Temp Pulse Resp B/P (MAP) Pulse Ox O2 Delivery O2 Flow Rate FiO2 10/21/17 12:00 98.1 82 18 139/92 (108) 96 10/21/17 08:00 97.9 86 18 152/91 (111) 97 10/21/17 04:31 85 10/21/17 04:00 97.9 83 18 152/92 (112) 98 10/21/17 00:00 97.4 83 18 136/91 (106) 99 10/20/17 23:45 82 10/20/17 20:00 96.7 88 18 122/82 (95) 100 10/20/17 18:28 97.8 79 18 149/99 (116) 99 I/O 10/20/17 10/20/17 10/20/17 10/21/17 10/21/17 10/21/17 07:00 15:00 23:00 07:00 15:00 23:00 Intake Total 0 ml 120 ml Output Total 2500 ml Balance 0 ml -2500 ml 120 ml Intake Oral 0 ml 120 ml Hemodialysis 2500 ml # Voids 0 0 # Bowel Movements 0 0 Result Diagram: 10/18/17 0813 10/21/17 1035 Other Results Item Value Date Time Bedside Blood Glucose 235 mg/dl 10/21/17 1326 Bedside Blood Glucose 482 mg/dl 10/21/17 1155 Bedside Blood Glucose 408 mg/dl 10/20/17 2145 Microbiology Date/Time Source Procedure Growth Status 10/12/17 15:20 Blood Peripheral Aerobic Blood Culture - Final NO GROWTH IN 5 DAYS Complete 10/12/17 15:20 Blood Peripheral Anaerobic Blood Culture - Final NO GROWTH IN 5 DAYS Complete 10/14/17 12:10 Stool Stool Stool Occult Blood (RUBA) - Final HEMOCCULT POSITIVE Complete Objective Remarks GENERAL: This is a well-nourished, well-developed patient, in no apparent distress. CARDIOVASCULAR: Regular rate and rhythm without murmurs, gallops, or rubs. RESPIRATORY: Clear to auscultation. Breath sounds equal bilaterally. No wheezes , rales, or rhonchi. GASTROINTESTINAL: Abdomen soft, non-tender, nondistended. Normal active bowel sounds MUSCULOSKELETAL: Extremities without clubbing, cyanosis, or edema. NEURO: Alert & Oriented x4 to person, place, time, situation. Moves all ext x4 Procedures 10/15 EGD with biopsy A/P Assessment and Plan ESRD with Dialysis Dialysis on MWF Will need Vas Cath changed out for Permacath prior to discharge Hypertension- Overall Controlled, Currently on Cozaar we'll continue monitor blood pressure trends. Nausea/Vomiting Nausea related to dialysis treatments, treat PRN with zofran gastric emptying test incomplete and unable to tolerate the procedure secured to nausea and vomiting. Consider Reglan Diabetes, Insulin Dependant Blood sugars labile, 70/30 NPH insulin held overnight causing hypoglycemic episodes this morning; insulin was held secondary to patient's poor by mouth intake due to being away from the floor for hemodialysis and attempted gastrointestinal tests overnight. Will adjust 70/30 NPH insulin for 25 units a.m. dosing and decrease to 10 units p.m. Accuchecks with sliding scale insulin coverage Diabetic Renal diet GI Bleed- hemoglobin remained stable EGD with biopsy revealed gastritis and esophagitis, PPI recommended Appreciate GI recommendations. Anemia, acute on chronic due to GI bleeding on chronic anemia due to end-stage renal disease DVT Prophylaxis SCD, Hunter chancee Anticoagulants held due to GI bleed Discharge Planning Patient is from [place], qualified for medicaid, but no path to medicare due to non-citizenship. Well need to look into options of outpatient hemodialysis Nishi Eric MD Oct 21, 2017 15:10
[2017-10-21 15:30] LABS: KERATOCYTES OCC (NORMAL); OVALOCYTES 2+ (NORMAL); TEARDROP RBCS 1+ (NORMAL)
[2017-10-21] MEDS: DEXT 5%-NACL 0.9% 1000 ML INJ 1,000 ML IV SCH (17:07)
[2017-10-21] MEDS: INSULIN HUMAN NPH 1,000 UNITS/10 ML VIAL SQ SCH (17:08)
[2017-10-21] MEDS: SODIUM CHLORIDE 0.9% FLUSH 10 ML FLUSH IV FLUSH PRN ×2 (17:09→18:14)
[2017-10-21] MEDS: ONDANSETRON HCL 4 MG/2 ML VIAL IVP PRN (18:15)
[2017-10-22] VITALS (9 sets, daily range): BP systolic 115–136; BP diastolic 70–89; PULSE 73–89; RESP 16–18; TEMP 96.8–98.1; O2SAT 99–100
[2017-10-22] MEDS: hydrALAZINE HCL 50 MG TAB PO SCH ×3 (00:49→17:36)
[2017-10-22] MEDS: METOCLOPRAMIDE HCL 10 MG/2 ML VIAL IV PUSH SCH ×3 (00:50→17:37)
[2017-10-22] MEDS ORDERED: INSULIN HUMAN NPH 1,000 UNITS/10 ML VIAL SQ SCH (08:00)
[2017-10-22] MEDS: INSULIN ASPART SUPPLEMENTAL SCALE SQ SCH ×4 (08:00→21:00)
[2017-10-22] MEDS: PANTOPRAZOLE SOD 40 MG DELAYED RELEASE TAB PO SCH (08:39)
[2017-10-22] MEDS: LOSARTAN 25 MG TAB PO SCH (08:40)
[2017-10-22] MEDS: CALCIUM ACETATE 667 MG CAP PO SCH ×3 (08:40→17:48)
[2017-10-22] MEDS: FOLIC ACID 1 MG TAB PO SCH (08:40)
[2017-10-22] MEDS: SODIUM CHLORIDE 0.9% FLUSH 10 ML FLUSH IV FLUSH SCH ×2 (08:41→21:00)
[2017-10-22] MEDS: METOPROLOL TARTRATE 50 MG TAB PO SCH ×2 (08:41→22:12)
[2017-10-22] MEDS: cloNIDine HCL 0.2 MG/24 HR PATCH T-DERMAL SCH (08:50)
[2017-10-22] MEDS: REMOVE OLD CATAPRES (CLONIDINE) PATCH T-DERMAL SCH (08:51)
--- NOTE | 2017-10-22 10:36 | HHI.GIFU ---
Subjective Remarks Pt resting in bed. Mother at bedside. n/v improving. Tolerating diet. (Ginette Cuevas) Objective Vitals I&O Vital Signs Date Time Temp Pulse Resp B/P (MAP) Pulse Ox O2 Delivery O2 Flow Rate FiO2 10/22/17 08:00 97.9 85 16 115/70 (85) 100 10/22/17 04:45 96.9 89 18 128/83 (98) 100 10/22/17 04:00 80 10/22/17 00:01 73 10/22/17 00:00 96.8 75 18 136/89 (105) 100 10/21/17 20:07 80 10/21/17 16:45 98.0 84 18 121/78 (92) 99 10/21/17 12:00 98.1 82 18 139/92 (108) 96 I/O 10/21/17 10/21/17 10/21/17 10/22/17 10/22/17 10/22/17 07:00 15:00 23:00 07:00 15:00 23:00 Intake Total 120 ml 480 ml Output Total 600 ml Balance 120 ml -120 ml Intake Oral 120 ml 480 ml Output Urine Total 600 ml # Voids 0 1 # Bowel Movements 0 Laboratory Laboratory Tests Test 10/21/17 10:35 10/21/17 14:23 Random Glucose 525 White Blood Count 11.7 Red Blood Count 3.20 Hemoglobin 8.5 Hematocrit 25.6 Mean Corpuscular Volume 80.0 Mean Corpuscular Hemoglobin 26.5 Mean Corpuscular Hemoglobin Concent 33.1 Red Cell Distribution Width 14.3 Platelet Count 397 Mean Platelet Volume 7.8 Neutrophils (%) (Auto) 67.5 Lymphocytes (%) (Auto) 17.0 Monocytes (%) (Auto) 12.4 Eosinophils (%) (Auto) 1.5 Basophils (%) (Auto) 1.6 Neutrophils # (Auto) 7.9 Lymphocytes # (Auto) 2.0 Monocytes # (Auto) 1.4 Eosinophils # (Auto) 0.2 Basophils # (Auto) 0.2 CBC Comment AUTO DIFF Differential Comment AUTO DIFF CONFIRMED Tear Drop Cells 1+ Ovalocytes 2+ Keratocytes OCC Date/Time Source Procedure Growth Status 10/12/17 15:20 Blood Peripheral Aerobic Blood Culture - Final NO GROWTH IN 5 DAYS Complete 10/12/17 15:20 Blood Peripheral Anaerobic Blood Culture - Final NO GROWTH IN 5 DAYS Complete 10/14/17 12:10 Stool Stool Stool Occult Blood (RUBA) - Final HEMOCCULT POSITIVE Complete Imaging Last Impressions Central Venous Line 10/19/17 0000 Signed Impressions: Service Date/Time: Thursday, October 19, 2017 00:00 - CONCLUSION: Uncomplicated catheter removal. Darshan Aguilar MD Catheter Placement X-Ray 10/19/17 0000 Signed Impressions: Service Date/Time: Thursday, October 19, 2017 09:01 - CONCLUSION: Uncomplicated PermaCath placement as above. Darshan Aguilar MD Abdomen Ultrasound 10/14/17 0000 Signed Impressions: Service Date/Time: September 07:47 - CONCLUSION: 1. Echogenic kidneys suggesting medical renal disease. 2. Possible 2 cm solid mass in the midpole of the left kidney. Recommend MRI abdomen for further evaluation. 3. Small left pleural effusion. Nehemias Costa MD Chest X-Ray 10/11/17 1634 Signed Impressions: Service Date/Time: Wednesday, October 11, 2017 17:01 - CONCLUSION: Cardiomegaly with moderate fluid overload. Kevan Lenz MD FACR Physical Exam HEENT:Normocephalic; atraumatic CHEST: CTA CARDIAC: RRR ABDOMEN: Soft, nondistended,nontender, bowel sounds active EXTREMITIES: No edema. SKIN: Normal; no rash; no jaundice. INSULATION ESTIMATOR:lethargic (Ginette Cuevas MIXER TENDER) Assessment and Plan Plan - n/v - improved today. admits some epigastric TTP. - anemia - stable no obvious bleeding current hemoglobin 10.5 likely d/t chronic dz. HH stable and at his baseline. has had hematology eval on prior admission 04/2017. stool occult blood postitive - DM, ESRD on HD 10/15/2017 EGD done shows Severe grade D esophagitis, Severe gastritis. Anemia could be related to chronic disease plus blood loss from the upper GI tract from above 10/18/17 n/v improved today. will order GES. bx pending 10/19/17 just threw up but says he feels fine. ?went for GES 10/20/17 went for GES and vomited. Not sure if there will be report, none yet. bx from EGD showed esophagitis. (10/21) Pt started on trial of Reglan yesterday, reports improvement in symptoms. Denies nausea, vomiting. Currently on renal diet, tolerated breakfast. Based on improvement with Reglan, symptoms likely secondary to gastroparesis. Risk factors include DM with ESRD on HD. He was unable to complete GES yesterday due to vomiting, no report. Anemia- likely multifactorial, renal insufficiency. No obvious GIB at this time, positive Hemoccult on 10/14. However, no H/H since Oct 18. Will repeat labs. 10/22/17 HH fluctuating. no obvious bleeding. Pt seems to be doing better with n/v since starting reglan. Can stay on reglan for 60 days total. After that consider EES d/w mother, including gastroparesis diet Plan: Continue Reglan up to 60 days total gastroparesis diet monitor labs GI will sign off. please reconsult if needed Pt has been seen and examined by myself and Dr. Paula and this note is written on his behalf (Ginette Cuevas) Physician Comments Seen and examined with MIXER TENDER, Doing better on Shaye. Short term use recommended. GES cancelled. Diet as tolerated. GI will sign off, reconsult as needed. Thank you (Anant Paula MD) Ginette Cuevas Oct 22, 2017 10:36 Anant Paula MD Oct 22, 2017 14:35
--- NOTE | 2017-10-22 11:24 | HHI.PR ---
Subjective Remarks He is tolerating his diet. No other complaints. Still feeling little nauseated Objective Vitals Vital Signs Date Time Temp Pulse Resp B/P (MAP) Pulse Ox O2 Delivery O2 Flow Rate FiO2 10/22/17 08:00 97.9 85 16 115/70 (85) 100 10/22/17 04:45 96.9 89 18 128/83 (98) 100 10/22/17 04:00 80 10/22/17 00:01 73 10/22/17 00:00 96.8 75 18 136/89 (105) 100 10/21/17 20:07 80 10/21/17 16:45 98.0 84 18 121/78 (92) 99 10/21/17 12:00 98.1 82 18 139/92 (108) 96 I/O 10/21/17 10/21/17 10/21/17 10/22/17 10/22/17 10/22/17 07:00 15:00 23:00 07:00 15:00 23:00 Intake Total 120 ml 480 ml Output Total 600 ml Balance 120 ml -120 ml Intake Oral 120 ml 480 ml Output Urine Total 600 ml # Voids 0 1 # Bowel Movements 0 Result Diagram: 10/21/17 1423 10/21/17 1035 Other Results Microbiology Date/Time Source Procedure Growth Status 10/12/17 15:20 Blood Peripheral Aerobic Blood Culture - Final NO GROWTH IN 5 DAYS Complete 10/12/17 15:20 Blood Peripheral Anaerobic Blood Culture - Final NO GROWTH IN 5 DAYS Complete 10/14/17 12:10 Stool Stool Stool Occult Blood (RUBA) - Final HEMOCCULT POSITIVE Complete Objective Remarks GENERAL: This is a well-nourished, well-developed patient, in no apparent distress. CARDIOVASCULAR: Regular rate and rhythm RESPIRATORY: Clear to auscultation. Breath sounds equal bilaterally. No wheezes , rales, or rhonchi. GASTROINTESTINAL: Abdomen soft, non-tender, nondistended. Normal active bowel sounds MUSCULOSKELETAL: Extremities without clubbing, cyanosis, or edema. NEURO: Alert & Oriented x4 to person, place, time, situation. Moves all ext x4 Procedures 10/15 EGD with biopsy A/P Assessment and Plan ESRD with Dialysis Dialysis on MWF Will need Vas Cath changed out for Permacath prior to discharge Hypertension- Overall Controlled, Currently on Cozaar we'll continue monitor blood pressure trends. Nausea/Vomiting Nausea related to dialysis treatments, treat PRN with zofran Gastric emptying test incomplete and unable to tolerate the procedure secured to nausea and vomiting. Patient seems to respond to Reglan Diabetes, Insulin Dependant Blood sugars labile, 70/30 NPH insulin dosing adjusted to prevent hypoglycemia Will adjust 70/30 NPH insulin for 28 units a.m. dosing and decrease to 10 units p.m. Accuchecks with sliding scale insulin coverage Diabetic Renal diet GI Bleed- hemoglobin remained stable EGD with biopsy revealed gastritis and esophagitis, PPI recommended Appreciate GI recommendations. Anemia, acute on chronic due to GI bleeding on chronic anemia due to end-stage renal disease -hemoglobin has remained stable. DVT Prophylaxis SCD, Hunter latif Anticoagulants held due to GI bleed Discharge Planning Patient is from [place], qualified for medicaid, but no path to medicare due to non-citizenship. Well need to look into options of outpatient hemodialysis Nishi Eric MD Oct 22, 2017 11:24
[2017-10-22] MEDS: GENTAMICIN SULFATE 20 MG/2 ML VIAL OTHER PRN (15:11)
[2017-10-22] MEDS: EPOETIN ALFA 10,000 UNITS/ML VIAL IV PUSH PRN (15:11)
[2017-10-22] MEDS: INSULIN HUMAN NPH 1,000 UNITS/10 ML VIAL SQ SCH (17:00)
--- NOTE | 2017-10-22 17:00 | HHI.NPPN ---
Subjective History of Present Illness The patient is a 27 [address] [facility] male with PMHx of ESRD on HD, IDDM since age 10 & hypertension who presented to this facility on 10/11 with his mother with complaints of SOB, edema, fatigue, weakness, and nausea. Is ESRD and been receiving HD via [facility] on Mondays and at a facility in [place]. Last outpatient tx this past . States that he moved here on Wednesday without any dialysis arrangements. Mother claims they have been trying to get him into a local unit, but without success. He was admitted at this facility this past April with ARF and accelerated hypertension. Given his severe renal impairment, he underwent a kidney biopsy that confirmed diabetic nephropathy as well as glomerulosclerosis. He was started on HD in [place] in late August/early September. Is moving here permanently with his mother and is in need of dialysis arrangements locally. Currently, the patient is weak and fatigued. He received emergent HD last night given his pulmonary edema. BP has been quite elevated. Unable to tolerate po medications and is currently on Labetalol IV for BP control. Interval History Patient seen during his dialysis session today tolerating it well. Review of Systems General Constitutional: Fatigue Gastrointestinal Gastrointestinal: Nausea & Vomiting Objective Data Data 10/22/17 10/23/17 19:00 07:00 Output Total 2500 ml Balance -2500 ml Hemodialysis 2500 ml Vital Signs Date Time Temp Pulse Resp B/P (MAP) Pulse Ox O2 Delivery O2 Flow Rate FiO2 10/22/17 12:00 98.1 81 16 130/82 (98) 99 10/22/17 08:00 97.9 85 16 115/70 (85) 100 10/22/17 04:45 96.9 89 18 128/83 (98) 100 10/22/17 04:00 80 10/22/17 00:01 73 10/22/17 00:00 96.8 75 18 136/89 (105) 100 10/21/17 20:07 80 -: 10/21/17 1423 10/21/17 1035 Tubes & Lines: Vas-Cath Physical Exam General Appearance: No Acute Distress, Comfortable Neck Neck Exam: Neck Supple Pulmonary Resp Exam: Clear Bilaterally, Breath Sounds Equal Cardiology CV Exam: Regular, Normal Sinus Rhythm Gastrointestinal/Abdomen GI Exam: Soft Integumentary Skin Exam: Clear, Warm Extremeties Extremities Exam: Trace Edema (periorbital) Neurologic Neuro Exam: Awake Psychiatric Psych Exam: Appropriate Responses Assessment/Plan Discussed Condition With: Patient Problem List: (1) ESRD (end stage renal disease) on dialysis ICD Codes: N18.6 - End stage renal disease; Z99.2 - Dependence on renal dialysis Plan: Patient clear for discharge from this facility from a nephrology point of view to his previous provider. The patient did have an established dialysis unit and hearing healthcare practitioner prior to this [place]. I will continue to provide inpatient nephrology coverage during this admission as consulted. Medications should be adjusted for the patient's ESRD. Avoid gadolinium. (2) Pulmonary edema ICD Codes: J81.1 - Chronic pulmonary edema Plan: Volume status improved with dialysis. (3) IDDM (insulin dependent diabetes mellitus) ICD Codes: E11.9 - Type 2 diabetes mellitus without complications; Z79.4 - MCC (current) use of insulin Plan: Management as per primary team (4) Hypertension ICD Codes: I10 - Essential (primary) hypertension Plan: Improving (5) Anemia ICD Codes: D64.9 - Anemia, unspecified Status: Acute Plan: Iron supplementation as ordered. Alyson Cantu MD Oct 22, 2017 16:59
[2017-10-22] MEDS: DEXT 5%-NACL 0.9% 1000 ML INJ 1,000 ML IV SCH ×2 (17:45→19:00)
[2017-10-23] VITALS (7 sets, daily range): BP systolic 117–176; BP diastolic 72–99; PULSE 80–88; RESP 17–22; TEMP 97.2–98.4; O2SAT 98–100
[2017-10-23] MEDS: hydrALAZINE HCL 50 MG TAB PO SCH ×4 (00:28→23:23)
[2017-10-23] MEDS: METOCLOPRAMIDE HCL 10 MG/2 ML VIAL IV PUSH SCH ×3 (00:46→17:00)
[2017-10-23] MEDS ORDERED: INSULIN HUMAN NPH 1,000 UNITS/10 ML VIAL SQ SCH (08:00)
[2017-10-23] MEDS: INSULIN ASPART SUPPLEMENTAL SCALE SQ SCH ×4 (08:54→22:09)
[2017-10-23] MEDS: LOSARTAN 25 MG TAB PO SCH (09:24)
[2017-10-23] MEDS: PANTOPRAZOLE SOD 40 MG DELAYED RELEASE TAB PO SCH (09:24)
[2017-10-23] MEDS: METOPROLOL TARTRATE 50 MG TAB PO SCH ×2 (09:24→21:56)
[2017-10-23] MEDS: FOLIC ACID 1 MG TAB PO SCH (09:25)
[2017-10-23] MEDS: CALCIUM ACETATE 667 MG CAP PO SCH ×3 (09:25→17:34)
[2017-10-23] MEDS: INSULIN HUMAN NPH 1,000 UNITS/10 ML VIAL SQ SCH ×2 (09:26→17:36)
[2017-10-23] MEDS: SODIUM CHLORIDE 0.9% FLUSH 10 ML FLUSH IV FLUSH SCH ×2 (09:26→21:57)
--- NOTE | 2017-10-23 12:30 | HHI.PR ---
Subjective Remarks Follow up on end-stage renal disease on hemodialysis now Will need outpatient hemodialysis and a prior to discharge Watch blood sugars Objective Vitals Vital Signs Date Time Temp Pulse Resp B/P (MAP) Pulse Ox O2 Delivery O2 Flow Rate FiO2 10/23/17 08:00 97.9 84 19 176/99 (124) 100 10/23/17 04:00 98.4 87 18 140/86 (104) 99 10/23/17 03:59 85 10/23/17 00:00 97.2 80 18 117/72 (87) 99 10/22/17 23:42 77 10/22/17 20:00 96.8 78 18 130/84 (99) 99 10/22/17 19:56 80 I/O 10/22/17 10/22/17 10/22/17 10/23/17 10/23/17 10/23/17 07:00 15:00 23:00 07:00 15:00 23:00 Intake Total 960 ml 240 ml Output Total 2500 ml 100 ml Balance -1540 ml 140 ml Intake Oral 960 ml 240 ml Output Urine Total 100 ml Hemodialysis 2500 ml # Voids 1 2 Result Diagram: 10/21/17 1423 10/21/17 1035 Other Results Laboratory Tests Test 10/21/17 10:35 10/21/17 14:23 Random Glucose 525 MG/DL White Blood Count 11.7 TH/MM3 Red Blood Count 3.20 MIL/MM3 Hemoglobin 8.5 GM/DL Hematocrit 25.6 % Mean Corpuscular Volume 80.0 FL Mean Corpuscular Hemoglobin 26.5 PG Mean Corpuscular Hemoglobin Concent 33.1 % Red Cell Distribution Width 14.3 % Platelet Count 397 TH/MM3 Mean Platelet Volume 7.8 FL Neutrophils (%) (Auto) 67.5 % Lymphocytes (%) (Auto) 17.0 % Monocytes (%) (Auto) 12.4 % Eosinophils (%) (Auto) 1.5 % Basophils (%) (Auto) 1.6 % Neutrophils # (Auto) 7.9 TH/MM3 Lymphocytes # (Auto) 2.0 TH/MM3 Monocytes # (Auto) 1.4 TH/MM3 Eosinophils # (Auto) 0.2 TH/MM3 Basophils # (Auto) 0.2 TH/MM3 CBC Comment AUTO DIFF Differential Comment AUTO DIFF CONFIRMED Tear Drop Cells 1+ Ovalocytes 2+ Keratocytes OCC Imaging Last Impressions Central Venous Line 10/19/17 0000 Signed Impressions: Service Date/Time: Thursday, October 19, 2017 00:00 - CONCLUSION: Uncomplicated catheter removal. Darshan Aguilar MD Catheter Placement X-Ray 10/19/17 0000 Signed Impressions: Service Date/Time: Thursday, October 19, 2017 09:01 - CONCLUSION: Uncomplicated PermaCath placement as above. Darshan Aguilar MD Abdomen Ultrasound 10/14/17 0000 Signed Impressions: Service Date/Time: September 07:47 - CONCLUSION: 1. Echogenic kidneys suggesting medical renal disease. 2. Possible 2 cm solid mass in the midpole of the left kidney. Recommend MRI abdomen for further evaluation. 3. Small left pleural effusion. Nehemias Costa MD Chest X-Ray 10/11/17 2004 Signed Impressions: Service Date/Time: Wednesday, October 11, 2017 17:01 - CONCLUSION: Cardiomegaly with moderate fluid overload. Kevan Lenz MD FACR Objective Remarks GENERAL: Awake alert oriented talkative and cooperative mumbles when he speaks therefore little hard to understand SKIN: Warm and dry. HEAD: Atraumatic. Normocephalic. EYES: Pupils equal and round. No scleral icterus. No injection or drainage. Extraocular muscles intact ENT: No nasal bleeding or discharge. Mucous membranes pink and moist. Tongue is midline NECK: Trachea midline. No JVD. CARDIOVASCULAR: Regular rate and rhythm. S1 and S2 no S3 or S4 RESPIRATORY: No accessory muscle use. Clear to auscultation. Breath sounds equal bilaterally. GASTROINTESTINAL: Abdomen soft, non-tender, nondistended. Hepatic and splenic margins not palpable. MUSCULOSKELETAL: Extremities without clubbing, cyanosis, or edema. No obvious deformities. NEUROLOGICAL: Awake and alert. No obvious cranial nerve deficits. Motor grossly within normal limits. Five out of 5 muscle strength in the arms and legs. Normal speech. PSYCHIATRIC: Appropriate mood and affect; insight and judgment normal. Procedures 10/15 EGD with biopsy SIDNEY KIRAN Signed EXAM DATE/TIME: 10/19/2017 09:01 [place] COMPARISON: No previous studies available for comparison. INDICATIONS : Patient presents with endstage renal disease in need of non tunneled catheter removal for tunneled catheter placement for dailysis. MEDICAL HISTORY : Insulin-dependent diabetes mellitus End-stage renal disease on dialysis Hypertension SURGICAL HISTORY : Renal biopsy ENCOUNTER: Initial ACUITY: 1 week PAIN SCORE: 0/10 LOCATION: N/A FLUORO TIME: 1.1 minutes IMAGE SERIES: 0 SEDATION TIME: 30 minutes ACCESS: Right internal jugular vein SEDATION: 1.) 1.5 mg midazolam (Versed) IV 2.) 75 mcg fentanyl (Sublimaze) IV Prophylactic antibiotics were administered with appropriate pre-procedure timing. Vancomycin within 2 hours of procedure, Ancef (or alternative) within 1 hour of procedure. DEVICE: 1. 15 [place] dual lumen 19 cm Lan II Plus catheter PROCEDURE : 1. Ultrasound-guided venipuncture. 2. PermaCath placement. 3. Conscious sedation with continuous EKG and oximetry monitoring. The risks, benefits and alternatives to the procedure were explained and verbal and written consent was obtained. The site was prepped in sterile fashion. Full sterile technique was used, including cap, mask, sterile gloves and gown and a large sterile sheet. Hand hygiene and 2% chlorhexidine and/or betadine/ alcohol prep was utilized per protocol for cutaneous antisepsis. Sterile gel and sterile probe cover were utilized for ultrasound guidance. The skin and subcutaneous tissues were infiltrated with local anesthetic solution. With ultrasound and fluoroscopic guidance a dermatotomy was created over the prescribed vein. A micropuncture set was used to access the targeted vein and serial dilatation was performed to accept the prescribed length catheter. A subcutaneous tunnel was created in a retrograde fashion the catheter was pulled through the tunnel. The catheter was flushed and assembled and locked with heparin. The catheter was sutured in place. Conscious sedation was performed with the prescribed dosages and duration as above in the presence of an independent trained radiology nurse to assist in the monitoring of the patient. EKG and oximetry remained stable throughout the procedure. The patient tolerated the procedure well and there were no complications. The patient was sent to post anesthesia recovery in stable condition. CONCLUSION: Uncomplicated PermaCath placement as above. Darshan Aguilar MD on October 19, 2017 at 9:38 Medications and IVs Current Medications Hydralazine HCl (Apresoline Inj) 20 mg ONCE ONCE IV PUSH Last administered on 10/11/17at 18:54; Start 10/11/17 at 19:00; Stop 10/11/17 at 19:01; Status DC Sodium Chloride 1,000 ml @ 0 mls/hr Q0M PRN OTHER For Prime & Rinse Back Last administered on 10/12/17at 00:00; Start 10/11/17 at 19:05; Stop 10/19/17 at 12:52 ; Status DC Heparin Sodium (Porcine) (Heparin Inj) 8,000 units UNSCH PRN IV FLUSH WITH DIALYSIS; Start 10/11/17 at 19:15 Heparin Sodium (Porcine) (Heparin Inj) 1,000 units Q1H PRN IV FLUSH WITH DIALYSIS Last administered on 10/22/17at 15:11; Start 10/11/17 at 19:15 Sodium Chloride 1,000 ml @ 200 mls/hr Q5H PRN IV WITH DIALYSIS; Start 10/11/17 at 19:05; Stop 10/19/17 at 12:52; Status DC Sodium Chloride 1,000 ml @ 0 mls/hr Q0M PRN OTHER WITH DIALYSIS; Start at 19:05; Stop 10/19/17 at 12:52; Status DC Mannitol (Mannitol Inj) 12.5 gm UNSCH PRN IV WITH DIALYSIS; Start 10/11/17 at 19:15 Albumin Human 100 ml @ 60 mls/hr UNSCH PRN IV WITH DIALYSIS; Start 10/11/17 at 19:15; Stop 10/19/17 at 12:51; Status DC Sodium Chloride (NS Flush) 5 ml UNSCH PRN IV FLUSH WITH DIALYSIS; Start at 19:15 Heparin Sodium (Porcine) (Heparin Inj) UNSCH PRN .XX WITH DIALYSIS Last administered on 10/18/17at 11:59; Start 10/11/17 at 19:15 Gentamicin Sulfate (Gentamicin Inj) 20 mg UNSCH PRN OTHER WITH DIALYSIS Last administered on 10/22/17at 15:11; Start 10/11/17 at 19:15 Ondansetron HCl (Zofran Inj) 4 mg UNSCH PRN IV PUSH WITH DIALYSIS Last administered on 10/18/17at 11:58; Start 10/11/17 at 19:15 Acetaminophen (Tylenol) 650 mg UNSCH PRN PO for headach, pain, temp > 101F; Start 10/11/17 at 19:15 Diphenhydramine HCl (Benadryl) 25 mg UNSCH PRN PO for hives/itching/anaphylaxis ; Start 10/11/17 at 19:15 Nitroglycerin (Nitrostat Sl) 0.4 mg UNSCH PRN SL CHEST PAIN; Start 10/11/17 at 19:15 Clonidine (Catapres) 0.1 mg UNSCH PRN PO for BP > 180/100 X 2 readings Last administered on 10/18/17at 03:53; Start 10/11/17 at 19:15 Gelatin (Gelfoam 12 Mm/7 Mm Top) 1 foam UNSCH PRN TOP SEE LABEL COMMENTS; Start 10/11/17 at 19:15 Sodium Chloride (NS Flush) 2 ml UNSCH PRN IV FLUSH FLUSH AFTER USING IV ACCESS Last administered on 10/21/17at 18:14; Start 10/11/17 at 19:30 Sodium Chloride (NS Flush) 2 ml BID IV FLUSH Last administered on 10/23/17 09: 26; Start 10/11/17 at 21:00 Acetaminophen (Tylenol) 650 mg Q4H PRN PO TEMP > 100.4; Start 10/11/17 at 19:30 Ondansetron HCl (Zofran Inj) 4 mg Q6H PRN IVP NAUSEA OR VOMITING Last administered on 10/21/17at 18:15; Start 10/11/17 at 19:30 Naloxone HCl (Narcan Inj) 0.4 mg UNSCH PRN IV PUSH SEE LABEL COMMENTS; Start at 19:30 Dextrose (D50w (Vial) Inj) 50 ml UNSCH PRN IV PUSH HYPOGLYCEMIA-SEE COMMENTS Last administered on 10/12/17at 02:09; Start 10/11/17 at 19:30 Glucagon (Glucagon Inj) 1 mg UNSCH PRN OTHER HYPOGLYCEMIA-SEE COMMENTS; Start 10/11/17 at 19:30 Insulin Aspart (NovoLOG SUPPLEMENTAL SCALE) 1 ACHS SLIDING SCALE SQ Last administered on 10/23/17 11:52; Start 10/11/17 at 21:00 Amlodipine Besylate (Norvasc) 10 mg DAILY PO Last administered on 10/23/17 09: 25; Start 10/12/17 at 09:00 Folic Acid (Folate) 0.5 mg DAILY PO Last administered on 10/23/17 09:25; Start 10/12/17 at 09:00 Furosemide (Lasix) 60 mg DAILY@0900,1800 PO Last administered on 10/11/17at 20: 15; Start 10/11/17 at 20:15; Status Future Hold Insulin Human Isoph/Insulin Regular (NovoLIN 70/30 INJ) 15 units DAILY@0800, 1700 SQ Last administered on 10/21/17at 08:09; Start 10/12/17 at 08:00; Stop 10/21 at 12:07; Status DC Miscellaneous Information Patient in critical care unit? Ass... [id number] .XX Last administered on 10/11/17at 21:00; Start 10/11/17 at 21:00 Chlorhexidine Gluconate (Chlorhexidine 2% Cloth) 3 pack DAILY@04 TOPICAL Last administered on 10/13/17at 00:05; Start 10/12/17 at 04:00; Stop 10/16/17 at 04:01 ; Status DC Chlorhexidine Gluconate (Chlorhexidine 2% Cloth) 3 pack UNSCH PRN TOPICAL HYGIENIC CARE; Start 10/11/17 at 21:00; Stop 10/16/17 at 20:57; Status DC Clonidine (Catapres) 0.1 mg ONCE ONCE PO ; Start 10/12/17 at 02:00; Stop at 02:01; Status DC Labetalol HCl (Trandate Inj) 10 mg ONCE ONCE IV PUSH Last administered on 10/12at 03:06; Start 10/12/17 at 03:00; Stop 10/12/17 at 03:03; Status DC Trimethobenzamide HCl (Tigan Inj) 200 mg ONCE ONCE IM Last administered on at 07:54; Start 10/12/17 at 06:45; Stop 10/12/17 at 06:46; Status DC Sodium Chloride 1,000 ml @ 42 mls/hr [id number] IV ; Start 10/12/17 at 08:15; Stop 10/12/17 at 11:25; Status DC Labetalol HCl (Trandate Inj) 10 mg Q4H PRN IV PUSH SBP> OR = 180, DBP> OR = 100 Last administered on 10/19/17at 10:43; Start 10/12/17 at 08:15 Vancomycin/Sodium Chloride 200 ml @ 200 mls/hr ONCE ONCE IV ; Start 10/12/17 at 12:30; Stop 10/12/17 at 13:29; Status UNV Piperacillin Sod/ Tazobactam Sod 50 ml @ 100 mls/hr ONCE ONCE IV Last administered on 10/12/17at 14:20; Start 10/12/17 at 13:15; Stop 10/12/17 at 13:44 ; Status DC Piperacillin Sod/ Tazobactam Sod 50 ml @ 100 mls/hr Q12H IV Last administered on 10/15/17at 08:00; Start 10/12/17 at 20:00; Stop 10/15/17 at 16:40; Status DC Hydralazine HCl (Apresoline Inj) 20 mg Q4H PRN IV PUSH SBP>160, DBP>90 Last administered on 10/17/17at 13:10; Start 10/12/17 at 13:15 Vancomycin HCl 1000 mg/Sodium Chloride 250 ml @ 250 mls/hr ONCE ONCE IV Last administered on 10/12/17at 14:20; Start 10/12/17 at 13:15; Stop 10/12/17 at 14:14 ; Status DC Trimethobenzamide HCl (Tigan Inj) 200 mg Q6H PRN IM NAUSEA OR VOMITING Last administered on 10/15/17at 08:31; Start 10/12/17 at 16:45 Prochlorperazine Edisylate (Compazine Inj) 5 mg ONCE ONCE IV PUSH Last administered on 10/13/17at 01:32; Start 10/13/17 at 01:30; Stop 10/13/17 at 01:31 ; Status DC Vancomycin HCl 1000 mg/Sodium Chloride 250 ml @ 250 mls/hr WITH DIALYSIS IV Last administered on 10/15/17at 09:17; Start 10/13/17 at 14:30; Stop 10/15/17 at 16:40; Status DC Epoetin Luis Miguel (Epogen Inj) 10,000 units UNSCH PRN IV PUSH WITH DIALYSIS Last administered on 10/22/17at 15:11; Start 10/13/17 at 14:30 Calcium Acetate (Phoslo) 667 mg TID PO Last administered on 10/23/17at 11:51; Start 10/13/17 at 18:00 Clonidine (Catapres-Tts 0.1mg Patch.7d) 1 patch Q7D T-DERMAL Last administered on 10/13/17at 17:00; Start 10/13/17 at 17:00; Stop 10/15/17 at 08:27; Status DC Miscellaneous Information 1 Q7D T-DERMAL ; Start 10/20/17 at 17:00; Stop at 17:00; Status DC Metoprolol Tartrate (Lopressor) 50 mg Q12HR PO Last administered on 10/23/17at 09 :24; Start 10/14/17 at 21:00 Hydralazine HCl (Apresoline) 50 mg Q12HR PO Last administered on 10/18/17at 08: 19; Start 10/14/17 at 21:00; Stop 10/18/17 at 09:35; Status DC Clonidine (Catapres-Tts 0.2 Mg Patch.7d) 1 patch Q7D T-DERMAL Last administered on 10/22/17at 08:50; Start 10/15/17 at 10:00 Miscellaneous Information 1 Q7D T-DERMAL Last administered on 10/22/17at 08:51; Start 10/22/17 at 10:00 Miscellaneous Information ALL NURSING DEPARTME... UNSCH PRN .XX SEE LABEL COMMENTS; Start 10/15/17 at 13:17; Stop 10/16/17 at 13:16; Status DC Iron Sucrose 100 mg/Sodium Chloride 105 ml @ 105 mls/hr DAILY IV Last administered on 10/17/17at 08:08; Start 10/15/17 at 16:45; Stop 10/17/17 at 09:59 ; Status DC Sodium Chloride 1,000 ml @ 0 mls/hr Q0M PRN OTHER For Prime & Rinse Back; Start 10/15/17 at 16:33 Sodium Chloride 1,000 ml @ 200 mls/hr Q5H PRN IV WITH DIALYSIS; Start 10/15/17 at 16:33 Sodium Chloride 1,000 ml @ 0 mls/hr Q0M PRN OTHER WITH DIALYSIS; Start at 16:33 Albumin Human 100 ml @ 60 mls/hr UNSCH PRN IV WITH DIALYSIS; Start 10/15/17 at 16:45 Sodium Chloride 500 ml @ As Directed STK-MED ONCE .ROUTE Last administered on 10/15/17at 12:30; Start 10/15/17 at 17:10; Stop 10/15/17 at 17:11; Status DC Pantoprazole Sodium (Protonix) 40 mg DAILY PO Last administered on 10/23/17at 09: 24; Start 10/16/17 at 09:00 Potassium Chloride (KCl) 10 meq ONCE ONCE PO Last administered on 10/16/17at 15 :22; Start 10/16/17 at 15:00; Stop 10/16/17 at 15:01; Status DC Potassium Chloride (KCl) 30 meq ONCE ONCE PO Last administered on 10/17/17at 08 :07; Start 10/17/17 at 08:00; Stop 10/17/17 at 08:01; Status DC Dextrose/Sodium Chloride 1,000 ml @ 40 mls/hr Q24H IV Last administered on 10/22at 19:00; Start 10/17/17 at 17:45 Vancomycin HCl 1000 mg/Sodium Chloride 250 ml @ 250 mls/hr [employer] IV Last administered on 10/19/17at 08:40; Start 10/18/17 at 09:30; Stop 10/22/17 at 09:29 ; Status DC Cefazolin Sodium/ Dextrose 50 ml @ 100 mls/hr [employer] IV Last administered on 10/19/17at 08:40; Start 10/18/17 at 09:30; Stop 10/22/17 at 09:29; Status DC Hydralazine HCl (Apresoline) 50 mg Q8H PO Last administered on 10/23/17at 09:24; Start 10/18/17 at 16:00 Propofol (Diprivan 200 Mg/20 ml Inj) 200 mg STK-MED ONCE IV ; Start 10/15/17 at 12:00; Stop 10/18/17 at 14:00; Status DC Succinylcholine Chloride (Quelicin Inj) 100 mg STK-MED ONCE IV PUSH ; Start at 12:00; Stop 10/18/17 at 14:00; Status DC Lidocaine HCl (Xylocaine-Mpf 1% Inj) 5 ml STK-MED ONCE OTHER ; Start 10/15/17 at 12:00; Stop 10/18/17 at 14:00; Status DC Fentanyl Citrate (fentaNYL INJ) 100 mcg STK-MED ONCE .ROUTE Last administered on 10/19/17at 08:21; Start 10/19/17 at 08:21; Stop 10/19/17 at 08:22; Status DC Fentanyl Citrate (fentaNYL INJ) 100 mcg STK-MED ONCE .ROUTE ; Start 10/19/17 at 08:22; Stop 10/19/17 at 08:23; Status DC Midazolam HCl (Versed Inj) 4 mg STK-MED ONCE .ROUTE Last administered on at 08:22; Start 10/19/17 at 08:22; Stop 10/19/17 at 08:23; Status DC Heparin Sodium (Porcine) (*HEPARIN INJ Periprocedural ONLY) 10,000 units STK- MED ONCE .ROUTE Last administered on 10/19/17at 09:00; Start 10/19/17 at 08:41; Stop 10/19/17 at 08:42; Status DC Sodium Chloride (NS Flush) UNSCH PRN IV FLUSH SEE PROTOCOL; Start 10/19/17 at 09:15 Heparin Sodium (Porcine) (Heparin Inj) UNSCH PRN IV FLUSH SEE PROTOCOL; Start 10/19/17 at 09:15 Losartan Potassium (Cozaar) 25 mg DAILY PO Last administered on 10/23/17at 09:24 ; Start 10/19/17 at 15:45 Metoclopramide HCl (Reglan Inj) 5 mg Q8H IV PUSH Last administered on 10/23/17at 08:51; Start 10/20/17 at 17:00 Insulin Human NPH (NovoLIN N INJ) 25 units DAILY@08 SQ Last administered on 10/22at 08:42; Start 10/22/17 at 08:00; Stop 10/22/17 at 11:19; Status DC Insulin Human NPH (NovoLIN N INJ) 10 units DAILY@17 SQ Last administered on 10/22at 17:00; Start 10/21/17 at 17:00 Insulin Human Isoph/Insulin Regular (NovoLIN 70/30 INJ) 10 units ONCE ONCE SQ Last administered on 10/21/17at 12:30; Start 10/21/17 at 12:15; Stop 10/21/17 at 12: 55; Status DC Insulin Human NPH (NovoLIN N INJ) 30 units DAILY@08 SQ ; Start 10/23/17 at 08:00 ; Stop 10/23/17 at 08:00; Status DC Insulin Human NPH (NovoLIN N INJ) 28 units DAILY@08 SQ Last administered on 10/23at 09:26; Start 10/23/17 at 08:00 A/P Problem List: (1) Acute renal failure ICD Code: N17.9 - Acute kidney failure, unspecified Status: Acute (2) ESRD (end stage renal disease) on dialysis ICD Code: N18.6 - End stage renal disease; Z99.2 - Dependence on renal dialysis (3) Hypertension ICD Code: I10 - Essential (primary) hypertension (4) IDDM (insulin dependent diabetes mellitus) ICD Code: E11.9 - Type 2 diabetes mellitus without complications; Z79.4 - senior living (current) use of insulin Assessment and Plan Assessment and Plan ESRD with Dialysis Dialysis on MWF Will need Vas Cath changed out for Permacath prior to discharge Hypertension- Overall Controlled, Currently on Cozaar we'll continue monitor blood pressure trends. Nausea/Vomiting Nausea related to dialysis treatments, treat PRN with zofran Gastric emptying test incomplete and unable to tolerate the procedure secured to nausea and vomiting. Patient seems to respond to Reglan Diabetes, Insulin Dependant Blood sugars labile, 70/30 NPH insulin dosing adjusted to prevent hypoglycemia Will adjust 70/30 NPH insulin for 28 units a.m. dosing and decrease to 10 units p.m. Accuchecks with sliding scale insulin coverage Diabetic Renal diet Monitor blood sugars GI Bleed- hemoglobin remained stable EGD with biopsy revealed gastritis and esophagitis, PPI recommended Appreciate GI recommendations. Anemia, acute on chronic due to GI bleeding on chronic anemia due to end-stage renal disease -hemoglobin has remained stable. DVT Prophylaxis SCD, Hunter hose Anticoagulants held due to GI bleed Will need outpatient hemodialysis set up prior to discharge Discharge Planning Pending outpatient hemodialysis set up Kevan Raymond DO Oct 23, 2017 12:30
[2017-10-24] VITALS (7 sets, daily range): BP systolic 120–167; BP diastolic 70–106; PULSE 81–91; RESP 16–20; TEMP 95.7–98.1; O2SAT 97–99
[2017-10-24] MEDS: METOCLOPRAMIDE HCL 10 MG/2 ML VIAL IV PUSH SCH ×3 (00:57→19:09)
[2017-10-24 06:39] LABS: AUTOMATED NEUTROPHIL # 6.4 TH/MM3 (1.8-7.7); BASOPHIL # 0.2 TH/MM3 (0-0.2); BASOPHIL % 1.9 % (0.0-2.0); EOSINOPHIL # 0.3 TH/MM3 (0-0.4); EOSINOPHIL % 3.1 % (0.0-4.0); HEMATOCRIT 24.4 % (39.0-51.0); HEMOGLOBIN 8.2 GM/DL (13.0-17.0); LYMPHOCYTE # 2.8 TH/MM3 (1.0-4.8); MEAN CORPUSCULAR HEMOGLOBIN 27.3 PG (27.0-34.0); MEAN CORPUSCULAR HGB CONC 33.7 % (32.0-36.0); MEAN PLATELET VOLUME 7.8 FL (7.0-11.0); MONO % 12.5 % (0.0-8.0); MONOCYTE # 1.4 TH/MM3 (0-0.9); NEUT % 57.5 % (16.0-70.0); PLATELET COUNT 336 TH/MM3 (150-450); RED BLOOD COUNT 3.01 MIL/MM3 (4.50-5.90); WHITE BLOOD COUNT 11.1 TH/MM3 (4.0-11.0)
[2017-10-24 07:23] LABS: ALBUMIN 2.3 GM/DL (3.4-5.0); ALKALINE PHOSPHATASE 84 U/L (45-117); ALT (GPT) 7 U/L (12-78); AST (GOT) 19 U/L (15-37); BICARBONATE 29.6 MEQ/L (21.0-32.0); BLOOD UREA NITROGEN 35 MG/DL (7-18); CALCIUM 8.8 MG/DL (8.5-10.1); CHLORIDE 99 MEQ/L (98-107); CREATININE 8.78 MG/DL (0.60-1.30); FREE T4 1.02 NG/DL (0.76-1.46); GLOMERULAR FILTRATION RATE 9 ML/MIN (>89); GLUCOSE,RANDOM 177 MG/DL (74-106); PHOSPHORUS 0.9 MG/DL (2.5-4.9); SODIUM (NA) 134 MEQ/L (136-145); TOTAL BILIRUBIN ADULT 0.3 MG/DL (0.2-1.0)
[2017-10-24] MEDS: INSULIN ASPART SUPPLEMENTAL SCALE SQ SCH ×4 (08:00→21:00)
[2017-10-24] MEDS: hydrALAZINE HCL 50 MG TAB PO SCH ×2 (09:51→16:00)
[2017-10-24] MEDS: CALCIUM ACETATE 667 MG CAP PO SCH ×3 (09:51→19:09)
[2017-10-24] MEDS: FOLIC ACID 1 MG TAB PO SCH (09:51)
[2017-10-24] MEDS: METOPROLOL TARTRATE 50 MG TAB PO SCH ×2 (09:51→21:04)
[2017-10-24] MEDS: LOSARTAN 25 MG TAB PO SCH (09:51)
[2017-10-24] MEDS: PANTOPRAZOLE SOD 40 MG DELAYED RELEASE TAB PO SCH (09:51)
[2017-10-24 09:53] LABS: OVALOCYTES 2+ (NORMAL)
[2017-10-24] MEDS: INSULIN HUMAN NPH 1,000 UNITS/10 ML VIAL SQ SCH ×2 (09:53→19:09)
[2017-10-24 09:54] LABS: KERATOCYTES OCC (NORMAL); TEARDROP RBCS 1+ (NORMAL)
[2017-10-24] MEDS: SODIUM CHLORIDE 0.9% FLUSH 10 ML FLUSH IV FLUSH SCH ×2 (09:54→21:04)
--- NOTE | 2017-10-24 10:21 | HHI.PR ---
Subjective Remarks 2-3 Follow up on end-stage renal disease on hemodialysis now Will need outpatient hemodialysis and a prior to discharge Watch blood sugars 2-4 MAY NEED TO GO BACK TO [facility] FOR DIALYSIS THERE NOT SET UP FOR OUTPT HD Objective Vitals Vital Signs Date Time Temp Pulse Resp B/P (MAP) Pulse Ox O2 Delivery O2 Flow Rate FiO2 10/24/17 08:00 96.2 86 17 167/106 (126) 98 10/24/17 04:00 98.0 86 20 146/81 (102) 98 10/24/17 00:00 98.1 91 20 121/70 (87) 99 10/24/17 00:00 91 10/23/17 20:00 97.7 86 22 122/75 (91) 99 10/23/17 20:00 85 10/23/17 16:00 98.1 88 17 137/81 (99) 98 10/23/17 12:00 97.3 83 19 147/92 (110) 99 I/O 10/23/17 10/23/17 10/23/17 10/24/17 10/24/17 10/24/17 07:00 15:00 23:00 07:00 15:00 23:00 Intake Total 240 ml 475 ml 120 ml Output Total 100 ml 175 ml 25 ml Balance 140 ml 300 ml 95 ml Intake Oral 240 ml 475 ml 120 ml Output Urine Total 100 ml 175 ml 25 ml # Bowel Movements 2 0 Result Diagram: 10/24/17 0554 10/24/17 0554 Other Results Laboratory Tests Test 10/21/17 10:35 10/21/17 14:23 10/24/17 05:54 Random Glucose 525 MG/DL 177 MG/DL White Blood Count 11.7 TH/MM3 11.1 TH/MM3 Red Blood Count 3.20 MIL/MM3 3.01 MIL/MM3 Hemoglobin 8.5 GM/DL 8.2 GM/DL Hematocrit 25.6 % 24.4 % Mean Corpuscular Volume 80.0 FL 81.0 FL Mean Corpuscular Hemoglobin 26.5 PG 27.3 PG Mean Corpuscular Hemoglobin Concent 33.1 % 33.7 % Red Cell Distribution Width 14.3 % 15.0 % Platelet Count 397 TH/MM3 336 TH/MM3 Mean Platelet Volume 7.8 FL 7.8 FL Neutrophils (%) (Auto) 67.5 % 57.5 % Lymphocytes (%) (Auto) 17.0 % 25.0 % Monocytes (%) (Auto) 12.4 % 12.5 % Eosinophils (%) (Auto) 1.5 % 3.1 % Basophils (%) (Auto) 1.6 % 1.9 % Neutrophils # (Auto) 7.9 TH/MM3 6.4 TH/MM3 Lymphocytes # (Auto) 2.0 TH/MM3 2.8 TH/MM3 Monocytes # (Auto) 1.4 TH/MM3 1.4 TH/MM3 Eosinophils # (Auto) 0.2 TH/MM3 0.3 TH/MM3 Basophils # (Auto) 0.2 TH/MM3 0.2 TH/MM3 CBC Comment AUTO DIFF AUTO DIFF Differential Comment AUTO DIFF CONFIRMED AUTO DIFF CONFIRMED Tear Drop Cells 1+ 1+ Ovalocytes 2+ 2+ Keratocytes OCC OCC Platelet Estimate NORMAL Platelet Morphology Comment NORMAL Blood Urea Nitrogen 35 MG/DL Creatinine 8.78 MG/DL Total Protein 6.0 GM/DL Albumin 2.3 GM/DL Calcium Level 8.8 MG/DL Phosphorus Level 0.9 MG/DL Magnesium Level 2.0 MG/DL Alkaline Phosphatase 84 U/L Aspartate Amino Transf (AST/SGOT) 19 U/L Alanine Aminotransferase (ALT/SGPT) 7 U/L Total Bilirubin 0.3 MG/DL Sodium Level 134 MEQ/L Potassium Level 4.4 MEQ/L Chloride Level 99 MEQ/L Carbon Dioxide Level 29.6 MEQ/L Anion Gap 5 MEQ/L Estimat Glomerular Filtration Rate 9 ML/MIN Free Thyroxine 1.02 NG/DL Thyroid Stimulating Hormone 3rd Gen 1.360 uIU/ML Imaging Last Impressions Central Venous Line 10/19/17 0000 Signed Impressions: Service Date/Time: Thursday, October 19, 2017 00:00 - CONCLUSION: Uncomplicated catheter removal. Darshan Aguilar MD Catheter Placement X-Ray 10/19/17 0000 Signed Impressions: Service Date/Time: Thursday, October 19, 2017 09:01 - CONCLUSION: Uncomplicated PermaCath placement as above. Darshan Aguilar MD Abdomen Ultrasound 10/14/17 0000 Signed Impressions: Service Date/Time: September 07:47 - CONCLUSION: 1. Echogenic kidneys suggesting medical renal disease. 2. Possible 2 cm solid mass in the midpole of the left kidney. Recommend MRI abdomen for further evaluation. 3. Small left pleural effusion. Nehemias Costa MD Chest X-Ray 10/11/17 [id number] Signed Impressions: Service Date/Time: Wednesday, October 11, 2017 17:01 - CONCLUSION: Cardiomegaly with moderate fluid overload. Kevan Lenz MD FACR Objective Remarks GENERAL: Awake alert oriented talkative and cooperative mumbles when he speaks therefore little hard to understand SKIN: Warm and dry. HEAD: Atraumatic. Normocephalic. EYES: Pupils equal and round. No scleral icterus. No injection or drainage. Extraocular muscles intact ENT: No nasal bleeding or discharge. Mucous membranes pink and moist. Tongue is midline NECK: Trachea midline. No JVD. CARDIOVASCULAR: Regular rate and rhythm. S1 and S2 no S3 or S4 RESPIRATORY: No accessory muscle use. Clear to auscultation. Breath sounds equal bilaterally. GASTROINTESTINAL: Abdomen soft, non-tender, nondistended. Hepatic and splenic margins not palpable. MUSCULOSKELETAL: Extremities without clubbing, cyanosis, or edema. No obvious deformities. NEUROLOGICAL: Awake and alert. No obvious cranial nerve deficits. Motor grossly within normal limits. Five out of 5 muscle strength in the arms and legs. Normal speech. PSYCHIATRIC: Appropriate mood and affect; insight and judgment normal. Procedures 10/15 EGD with biopsy SIDNEY KIRAN Signed EXAM DATE/TIME: 10/19/2017 09:01 [facility] COMPARISON: No previous studies available for comparison. INDICATIONS : Patient presents with endstage renal disease in need of non tunneled catheter removal for tunneled catheter placement for dailysis. MEDICAL HISTORY : Insulin-dependent diabetes mellitus End-stage renal disease on dialysis Hypertension SURGICAL HISTORY : Renal biopsy ENCOUNTER: Initial ACUITY: 1 week PAIN SCORE: 0/10 LOCATION: N/A FLUORO TIME: 1.1 minutes IMAGE SERIES: 0 SEDATION TIME: 30 minutes ACCESS: Right internal jugular vein SEDATION: 1.) 1.5 mg midazolam (Versed) IV 2.) 75 mcg fentanyl (Sublimaze) IV Prophylactic antibiotics were administered with appropriate pre-procedure timing. Vancomycin within 2 hours of procedure, Ancef (or alternative) within 1 hour of procedure. DEVICE: 1. 15 Welsh dual lumen 19 cm Lan II Plus catheter PROCEDURE : 1. Ultrasound-guided venipuncture. 2. PermaCath placement. 3. Conscious sedation with continuous EKG and oximetry monitoring. The risks, benefits and alternatives to the procedure were explained and verbal and written consent was obtained. The site was prepped in sterile fashion. Full sterile technique was used, including cap, mask, sterile gloves and gown and a large sterile sheet. Hand hygiene and 2% chlorhexidine and/or betadine/ alcohol prep was utilized per protocol for cutaneous antisepsis. Sterile gel and sterile probe cover were utilized for ultrasound guidance. The skin and subcutaneous tissues were infiltrated with local anesthetic solution. With ultrasound and fluoroscopic guidance a dermatotomy was created over the prescribed vein. A micropuncture set was used to access the targeted vein and serial dilatation was performed to accept the prescribed length catheter. A subcutaneous tunnel was created in a retrograde fashion the catheter was pulled through the tunnel. The catheter was flushed and assembled and locked with heparin. The catheter was sutured in place. Conscious sedation was performed with the prescribed dosages and duration as above in the presence of an independent trained radiology nurse to assist in the monitoring of the patient. EKG and oximetry remained stable throughout the procedure. The patient tolerated the procedure well and there were no complications. The patient was sent to post anesthesia recovery in stable condition. CONCLUSION: Uncomplicated PermaCath placement as above. Darshan Aguilar MD on October 19, 2017 at 9:38 Medications and IVs Current Medications Hydralazine HCl (Apresoline Inj) 20 mg ONCE ONCE IV PUSH Last administered on 10/11/17at 18:54; Start 10/11/17 at 19:00; Stop 10/11/17 at 19:01; Status DC Sodium Chloride 1,000 ml @ 0 mls/hr Q0M PRN OTHER For Prime & Rinse Back Last administered on 10/12/17at 00:00; Start 10/11/17 at 19:05; Stop 10/19/17 at 12:52 ; Status DC Heparin Sodium (Porcine) (Heparin Inj) 8,000 units UNSCH PRN IV FLUSH WITH DIALYSIS; Start 10/11/17 at 19:15 Heparin Sodium (Porcine) (Heparin Inj) 1,000 units Q1H PRN IV FLUSH WITH DIALYSIS Last administered on 10/22/17at 15:11; Start 10/11/17 at 19:15 Sodium Chloride 1,000 ml @ 200 mls/hr Q5H PRN IV WITH DIALYSIS; Start 10/11/17 at 19:05; Stop 10/19/17 at 12:52; Status DC Sodium Chloride 1,000 ml @ 0 mls/hr Q0M PRN OTHER WITH DIALYSIS; Start at 19:05; Stop 10/19/17 at 12:52; Status DC Mannitol (Mannitol Inj) 12.5 gm UNSCH PRN IV WITH DIALYSIS; Start 10/11/17 at 19:15 Albumin Human 100 ml @ 60 mls/hr UNSCH PRN IV WITH DIALYSIS; Start 10/11/17 at 19:15; Stop 10/19/17 at 12:51; Status DC Sodium Chloride (NS Flush) 5 ml UNSCH PRN IV FLUSH WITH DIALYSIS; Start at 19:15 Heparin Sodium (Porcine) (Heparin Inj) UNSCH PRN .XX WITH DIALYSIS Last administered on 10/18/17at 11:59; Start 10/11/17 at 19:15 Gentamicin Sulfate (Gentamicin Inj) 20 mg UNSCH PRN OTHER WITH DIALYSIS Last administered on 10/22/17at 15:11; Start 10/11/17 at 19:15 Ondansetron HCl (Zofran Inj) 4 mg UNSCH PRN IV PUSH WITH DIALYSIS Last administered on 10/18/17at 11:58; Start 10/11/17 at 19:15 Acetaminophen (Tylenol) 650 mg UNSCH PRN PO for headach, pain, temp > 101F; Start 10/11/17 at 19:15 Diphenhydramine HCl (Benadryl) 25 mg UNSCH PRN PO for hives/itching/anaphylaxis ; Start 10/11/17 at 19:15 Nitroglycerin (Nitrostat Sl) 0.4 mg UNSCH PRN SL CHEST PAIN; Start 10/11/17 at 19:15 Clonidine (Catapres) 0.1 mg UNSCH PRN PO for BP > 180/100 X 2 readings Last administered on 10/18/17at 03:53; Start 10/11/17 at 19:15 Gelatin (Gelfoam 12 Mm/7 Mm Top) 1 foam UNSCH PRN TOP SEE LABEL COMMENTS; Start 10/11/17 at 19:15 Sodium Chloride (NS Flush) 2 ml UNSCH PRN IV FLUSH FLUSH AFTER USING IV ACCESS Last administered on 10/21/17 18:14; Start 10/11/17 at 19:30 Sodium Chloride (NS Flush) 2 ml BID IV FLUSH Last administered on 10/24/17at 09: 54; Start 10/11/17 at 21:00 Acetaminophen (Tylenol) 650 mg Q4H PRN PO TEMP > 100.4; Start 10/11/17 at 19:30 Ondansetron HCl (Zofran Inj) 4 mg Q6H PRN IVP NAUSEA OR VOMITING Last administered on 10/21/17at 18:15; Start 10/11/17 at 19:30 Naloxone HCl (Narcan Inj) 0.4 mg UNSCH PRN IV PUSH SEE LABEL COMMENTS; Start at 19:30 Dextrose (D50w (Vial) Inj) 50 ml UNSCH PRN IV PUSH HYPOGLYCEMIA-SEE COMMENTS Last administered on 10/12/17at 02:09; Start 10/11/17 at 19:30 Glucagon (Glucagon Inj) 1 mg UNSCH PRN OTHER HYPOGLYCEMIA-SEE COMMENTS; Start 10/11/17 at 19:30 Insulin Aspart (NovoLOG SUPPLEMENTAL SCALE) 1 ACHS SLIDING SCALE SQ Last administered on 10/23/17 22:09; Start 10/11/17 at 21:00 Amlodipine Besylate (Norvasc) 10 mg DAILY PO Last administered on 10/24/17at 09: 50; Start 10/12/17 at 09:00 Folic Acid (Folate) 0.5 mg DAILY PO Last administered on 10/24/17at 09:51; Start 10/12/17 at 09:00 Furosemide (Lasix) 60 mg DAILY@0900,1800 PO Last administered on 10/11/17at 20: 15; Start 10/11/17 at 20:15; Status Future Hold Insulin Human Isoph/Insulin Regular (NovoLIN 70/30 INJ) 15 units DAILY@0800, 1700 SQ Last administered on 10/21/17at 08:09; Start 10/12/17 at 08:00; Stop 10/21 at 12:07; Status DC Miscellaneous Information Patient in critical care unit? Ass... [id number] .XX Last administered on 10/11/17at 21:00; Start 10/11/17 at 21:00 Chlorhexidine Gluconate (Chlorhexidine 2% Cloth) 3 pack DAILY@04 TOPICAL Last administered on 10/13/17at 00:05; Start 10/12/17 at 04:00; Stop 10/16/17 at 04:01 ; Status DC Chlorhexidine Gluconate (Chlorhexidine 2% Cloth) 3 pack UNSCH PRN TOPICAL HYGIENIC CARE; Start 10/11/17 at 21:00; Stop 10/16/17 at 20:57; Status DC Clonidine (Catapres) 0.1 mg ONCE ONCE PO ; Start 10/12/17 at 02:00; Stop at 02:01; Status DC Labetalol HCl (Trandate Inj) 10 mg ONCE ONCE IV PUSH Last administered on 10/12at 03:06; Start 10/12/17 at 03:00; Stop 10/12/17 at 03:03; Status DC Trimethobenzamide HCl (Tigan Inj) 200 mg ONCE ONCE IM Last administered on at 07:54; Start 10/12/17 at 06:45; Stop 10/12/17 at 06:46; Status DC Sodium Chloride 1,000 ml @ 42 mls/hr [id number] IV ; Start 10/12/17 at 08:15; Stop 10/12/17 at 11:25; Status DC Labetalol HCl (Trandate Inj) 10 mg Q4H PRN IV PUSH SBP> OR = 180, DBP> OR = 100 Last administered on 10/19/17at 10:43; Start 10/12/17 at 08:15 Vancomycin/Sodium Chloride 200 ml @ 200 mls/hr ONCE ONCE IV ; Start 10/12/17 at 12:30; Stop 10/12/17 at 13:29; Status UNV Piperacillin Sod/ Tazobactam Sod 50 ml @ 100 mls/hr ONCE ONCE IV Last administered on 10/12/17at 14:20; Start 10/12/17 at 13:15; Stop 10/12/17 at 13:44 ; Status DC Piperacillin Sod/ Tazobactam Sod 50 ml @ 100 mls/hr Q12H IV Last administered on 10/15/17at 08:00; Start 10/12/17 at 20:00; Stop 10/15/17 at 16:40; Status DC Hydralazine HCl (Apresoline Inj) 20 mg Q4H PRN IV PUSH SBP>160, DBP>90 Last administered on 10/17/17 13:10; Start 10/12/17 at 13:15 Vancomycin HCl 1000 mg/Sodium Chloride 250 ml @ 250 mls/hr ONCE ONCE IV Last administered on 10/12/17at 14:20; Start 10/12/17 at 13:15; Stop 10/12/17 at 14:14 ; Status DC Trimethobenzamide HCl (Tigan Inj) 200 mg Q6H PRN IM NAUSEA OR VOMITING Last administered on 10/15/17at 08:31; Start 10/12/17 at 16:45 Prochlorperazine Edisylate (Compazine Inj) 5 mg ONCE ONCE IV PUSH Last administered on 10/13/17 01:32; Start 10/13/17 at 01:30; Stop 10/13/17 at 01:31 ; Status DC Vancomycin HCl 1000 mg/Sodium Chloride 250 ml @ 250 mls/hr WITH DIALYSIS IV Last administered on 10/15/17at 09:17; Start 10/13/17 at 14:30; Stop 10/15/17 at 16:40; Status DC Epoetin Luis Miguel (Epogen Inj) 10,000 units UNSCH PRN IV PUSH WITH DIALYSIS Last administered on 10/22/17 15:11; Start 10/13/17 at 14:30 Calcium Acetate (Phoslo) 667 mg TID PO Last administered on 10/24/17 09:51; Start 10/13/17 at 18:00 Clonidine (Catapres-Tts 0.1mg Patch.7d) 1 patch Q7D T-DERMAL Last administered on 10/13/17at 17:00; Start 10/13/17 at 17:00; Stop 10/15/17 at 08:27; Status DC Miscellaneous Information 1 Q7D T-DERMAL ; Start 10/20/17 at 17:00; Stop at 17:00; Status DC Metoprolol Tartrate (Lopressor) 50 mg Q12HR PO Last administered on 10/24/17 09 :51; Start 10/14/17 at 21:00 Hydralazine HCl (Apresoline) 50 mg Q12HR PO Last administered on 10/18/17at 08: 19; Start 10/14/17 at 21:00; Stop 10/18/17 at 09:35; Status DC Clonidine (Catapres-Tts 0.2 Mg Patch.7d) 1 patch Q7D T-DERMAL Last administered on 10/22/17at 08:50; Start 10/15/17 at 10:00 Miscellaneous Information 1 Q7D T-DERMAL Last administered on 10/22/17at 08:51; Start 10/22/17 at 10:00 Miscellaneous Information ALL NURSING DEPARTME... UNSCH PRN .XX SEE LABEL COMMENTS; Start 10/15/17 at 13:17; Stop 10/16/17 at 13:16; Status DC Iron Sucrose 100 mg/Sodium Chloride 105 ml @ 105 mls/hr DAILY IV Last administered on 10/17/17at 08:08; Start 10/15/17 at 16:45; Stop 10/17/17 at 09:59 ; Status DC Sodium Chloride 1,000 ml @ 0 mls/hr Q0M PRN OTHER For Prime & Rinse Back; Start 10/15/17 at 16:33 Sodium Chloride 1,000 ml @ 200 mls/hr Q5H PRN IV WITH DIALYSIS; Start 10/15/17 at 16:33 Sodium Chloride 1,000 ml @ 0 mls/hr Q0M PRN OTHER WITH DIALYSIS; Start at 16:33 Albumin Human 100 ml @ 60 mls/hr UNSCH PRN IV WITH DIALYSIS; Start 10/15/17 at 16:45 Sodium Chloride 500 ml @ As Directed STK-MED ONCE .ROUTE Last administered on 10/15/17at 12:30; Start 10/15/17 at 17:10; Stop 10/15/17 at 17:11; Status DC Pantoprazole Sodium (Protonix) 40 mg DAILY PO Last administered on 10/24/17at 09: 51; Start 10/16/17 at 09:00 Potassium Chloride (KCl) 10 meq ONCE ONCE PO Last administered on 10/16/17at 15 :22; Start 10/16/17 at 15:00; Stop 10/16/17 at 15:01; Status DC Potassium Chloride (KCl) 30 meq ONCE ONCE PO Last administered on 10/17/17at 08 :07; Start 10/17/17 at 08:00; Stop 10/17/17 at 08:01; Status DC Dextrose/Sodium Chloride 1,000 ml @ 40 mls/hr Q24H IV Last administered on 10/22at 19:00; Start 10/17/17 at 17:45 Vancomycin HCl 1000 mg/Sodium Chloride 250 ml @ 250 mls/hr ESCROW AGENT IV Last administered on 10/19/17at 08:40; Start 10/18/17 at 09:30; Stop 10/22/17 at 09:29 ; Status DC Cefazolin Sodium/ Dextrose 50 ml @ 100 mls/hr ESCROW AGENT IV Last administered on 10/19/17at 08:40; Start 10/18/17 at 09:30; Stop 10/22/17 at 09:29; Status DC Hydralazine HCl (Apresoline) 50 mg Q8H PO Last administered on 10/24/17at 09:51; Start 10/18/17 at 16:00 Propofol (Diprivan 200 Mg/20 ml Inj) 200 mg STK-MED ONCE IV ; Start 10/15/17 at 12:00; Stop 10/18/17 at 14:00; Status DC Succinylcholine Chloride (Quelicin Inj) 100 mg STK-MED ONCE IV PUSH ; Start at 12:00; Stop 10/18/17 at 14:00; Status DC Lidocaine HCl (Xylocaine-Mpf 1% Inj) 5 ml STK-MED ONCE OTHER ; Start 10/15/17 at 12:00; Stop 10/18/17 at 14:00; Status DC Fentanyl Citrate (fentaNYL INJ) 100 mcg STK-MED ONCE .ROUTE Last administered on 10/19/17at 08:21; Start 10/19/17 at 08:21; Stop 10/19/17 at 08:22; Status DC Fentanyl Citrate (fentaNYL INJ) 100 mcg STK-MED ONCE .ROUTE ; Start 10/19/17 at 08:22; Stop 10/19/17 at 08:23; Status DC Midazolam HCl (Versed Inj) 4 mg STK-MED ONCE .ROUTE Last administered on at 08:22; Start 10/19/17 at 08:22; Stop 10/19/17 at 08:23; Status DC Heparin Sodium (Porcine) (*HEPARIN INJ Periprocedural ONLY) 10,000 units STK- MED ONCE .ROUTE Last administered on 10/19/17at 09:00; Start 10/19/17 at 08:41; Stop 10/19/17 at 08:42; Status DC Sodium Chloride (NS Flush) UNSCH PRN IV FLUSH SEE PROTOCOL; Start 10/19/17 at 09:15 Heparin Sodium (Porcine) (Heparin Inj) UNSCH PRN IV FLUSH SEE PROTOCOL; Start 10/19/17 at 09:15 Losartan Potassium (Cozaar) 25 mg DAILY PO Last administered on 10/24/17at 09:51 ; Start 10/19/17 at 15:45 Metoclopramide HCl (Reglan Inj) 5 mg Q8H IV PUSH Last administered on 10/24/17at 09:00; Start 10/20/17 at 17:00 Insulin Human NPH (NovoLIN N INJ) 25 units DAILY@08 SQ Last administered on 10/22at 08:42; Start 10/22/17 at 08:00; Stop 10/22/17 at 11:19; Status DC Insulin Human NPH (NovoLIN N INJ) 10 units DAILY@17 SQ Last administered on 10/23at 17:36; Start 10/21/17 at 17:00 Insulin Human Isoph/Insulin Regular (NovoLIN 70/30 INJ) 10 units ONCE ONCE SQ Last administered on 10/21/17at 12:30; Start 10/21/17 at 12:15; Stop 10/21/17 at 12: 55; Status DC Insulin Human NPH (NovoLIN N INJ) 30 units DAILY@08 SQ ; Start 10/23/17 at 08:00 ; Stop 10/23/17 at 08:00; Status DC Insulin Human NPH (NovoLIN N INJ) 28 units DAILY@08 SQ Last administered on 10/24at 09:53; Start 10/23/17 at 08:00 A/P Problem List: (1) Acute renal failure ICD Code: N17.9 - Acute kidney failure, unspecified Status: Acute (2) ESRD (end stage renal disease) on dialysis ICD Code: N18.6 - End stage renal disease; Z99.2 - Dependence on renal dialysis (3) Hypertension ICD Code: I10 - Essential (primary) hypertension (4) IDDM (insulin dependent diabetes mellitus) ICD Code: E11.9 - Type 2 diabetes mellitus without complications; Z79.4 - [facility] (current) use of insulin Assessment and Plan Assessment and Plan ESRD with Dialysis Dialysis on MWF Will need Vas Cath changed out for Permacath prior to discharge Hypertension- Overall Controlled, Currently on Cozaar we'll continue monitor blood pressure trends. Nausea/Vomiting Nausea related to dialysis treatments, treat PRN with zofran Gastric emptying test incomplete and unable to tolerate the procedure secured to nausea and vomiting. Patient seems to respond to Reglan Diabetes, Insulin Dependant Blood sugars labile, 70/30 NPH insulin dosing adjusted to prevent hypoglycemia Will adjust 70/30 NPH insulin for 28 units a.m. dosing and decrease to 10 units p.m. Accuchecks with sliding scale insulin coverage Diabetic Renal diet Monitor blood sugars GI Bleed- hemoglobin remained stable EGD with biopsy revealed gastritis and esophagitis, PPI recommended Appreciate GI recommendations. Anemia, acute on chronic due to GI bleeding on chronic anemia due to end-stage renal disease -hemoglobin has remained stable. DVT Prophylaxis SCD, Hunter hose Anticoagulants held due to GI bleed Will need outpatient hemodialysis set up prior to discharge Discharge Planning Pending outpatient hemodialysis set up Kevan Raymond DO Oct 24, 2017 10:21
[2017-10-24 11:34] LABS: HEMOGLOBIN A1C 5.8 % (4.3-6.0)
[2017-10-24] MEDS: DEXT 5%-NACL 0.9% 1000 ML INJ 1,000 ML IV SCH (17:45)
[2017-10-25] VITALS (8 sets, daily range): BP systolic 134–158; BP diastolic 82–94; PULSE 80–89; RESP 16–22; TEMP 95.9–97.8; O2SAT 98–99
[2017-10-25] MEDS: METOCLOPRAMIDE HCL 10 MG/2 ML VIAL IV PUSH SCH ×3 (00:01→16:04)
[2017-10-25] MEDS: hydrALAZINE HCL 50 MG TAB PO SCH ×3 (00:01→16:00)
[2017-10-25] MEDS: ONDANSETRON HCL 4 MG/2 ML VIAL IV PUSH PRN (07:35)
[2017-10-25] MEDS: INSULIN ASPART SUPPLEMENTAL SCALE SQ SCH ×4 (08:00→22:45)
--- NOTE | 2017-10-25 08:53 | HHI.PR ---
Subjective Remarks in no acute distress. vomited once earlier this morning. but no nausea at this time. complaining of generalized weakness. no sob and denies pain. Objective Vitals Vital Signs Date Time Temp Pulse Resp B/P (MAP) Pulse Ox O2 Delivery O2 Flow Rate FiO2 10/25/17 04:00 97.1 82 16 138/82 (100) 99 10/25/17 00:00 95.9 89 16 140/82 (101) 98 10/24/17 21:00 81 10/24/17 20:00 95.7 83 16 138/84 (102) 99 10/24/17 16:00 97.5 81 17 120/73 (89) 98 10/24/17 12:00 96.2 83 16 155/85 (108) 97 I/O 10/24/17 10/24/17 10/24/17 10/25/17 10/25/17 10/25/17 07:00 15:00 23:00 07:00 15:00 23:00 Intake Total 120 ml 800 ml 420 ml Output Total 25 ml 250 ml Balance 95 ml 550 ml 420 ml Intake Oral 120 ml 800 ml 420 ml Output Urine Total 25 ml 250 ml # Voids 1 # Bowel Movements 0 0 0 Result Diagram: 10/24/17 0554 10/24/17 0554 Imaging Last Impressions Central Venous Line 10/19/17 0000 Signed Impressions: Service Date/Time: Thursday, October 19, 2017 00:00 - CONCLUSION: Uncomplicated catheter removal. Darshan Aguilar MD Catheter Placement X-Ray 10/19/17 0000 Signed Impressions: Service Date/Time: Thursday, October 19, 2017 09:01 - CONCLUSION: Uncomplicated PermaCath placement as above. Darshan Aguilar MD Abdomen Ultrasound 10/14/17 0000 Signed Impressions: Service Date/Time: September 07:47 - CONCLUSION: 1. Echogenic kidneys suggesting medical renal disease. 2. Possible 2 cm solid mass in the midpole of the left kidney. Recommend MRI abdomen for further evaluation. 3. Small left pleural effusion. Nehemias Costa MD Chest X-Ray 10/11/17 8206 Signed Impressions: Service Date/Time: Wednesday, October 11, 2017 17:01 - CONCLUSION: Cardiomegaly with moderate fluid overload. Kevan Lenz MD FACR Objective Remarks GENERAL: This is a well-nourished, well-developed patient, in no apparent distress. CARDIOVASCULAR: Regular rate and regular rhythm without murmurs, gallops, or rubs. RESPIRATORY: Clear to auscultation. Breath sounds equal bilaterally. No wheezes , rales, or rhonchi. GASTROINTESTINAL: Abdomen soft, non-tender, nondistended. Normal, active bowel sounds MUSCULOSKELETAL: Extremities without clubbing, cyanosis, or edema. NEURO: Alert & Oriented x4 to person, place, time, situation. Moves all ext x4 Procedures 10/15 EGD with biopsy SIDNEY KIRAN Signed EXAM DATE/TIME: 10/19/2017 09:01 [place] COMPARISON: No previous studies available for comparison. INDICATIONS : Patient presents with endstage renal disease in need of non tunneled catheter removal for tunneled catheter placement for dailysis. MEDICAL HISTORY : Insulin-dependent diabetes mellitus End-stage renal disease on dialysis Hypertension SURGICAL HISTORY : Renal biopsy ENCOUNTER: Initial ACUITY: 1 week PAIN SCORE: 0/10 LOCATION: N/A FLUORO TIME: 1.1 minutes IMAGE SERIES: 0 SEDATION TIME: 30 minutes ACCESS: Right internal jugular vein SEDATION: 1.) 1.5 mg midazolam (Versed) IV 2.) 75 mcg fentanyl (Sublimaze) IV Prophylactic antibiotics were administered with appropriate pre-procedure timing. Vancomycin within 2 hours of procedure, Ancef (or alternative) within 1 hour of procedure. DEVICE: 1. 15 Czech dual lumen 19 cm Lan II Plus catheter PROCEDURE : 1. Ultrasound-guided venipuncture. 2. PermaCath placement. 3. Conscious sedation with continuous EKG and oximetry monitoring. The risks, benefits and alternatives to the procedure were explained and verbal and written consent was obtained. The site was prepped in sterile fashion. Full sterile technique was used, including cap, mask, sterile gloves and gown and a large sterile sheet. Hand hygiene and 2% chlorhexidine and/or betadine/ alcohol prep was utilized per protocol for cutaneous antisepsis. Sterile gel and sterile probe cover were utilized for ultrasound guidance. The skin and subcutaneous tissues were infiltrated with local anesthetic solution. With ultrasound and fluoroscopic guidance a dermatotomy was created over the prescribed vein. A micropuncture set was used to access the targeted vein and serial dilatation was performed to accept the prescribed length catheter. A subcutaneous tunnel was created in a retrograde fashion the catheter was pulled through the tunnel. The catheter was flushed and assembled and locked with heparin. The catheter was sutured in place. Conscious sedation was performed with the prescribed dosages and duration as above in the presence of an independent trained radiology nurse to assist in the monitoring of the patient. EKG and oximetry remained stable throughout the procedure. The patient tolerated the procedure well and there were no complications. The patient was sent to post anesthesia recovery in stable condition. CONCLUSION: Uncomplicated PermaCath placement as above. Darshan Aguilar MD on October 19, 2017 at 9:38 Medications and IVs Inpatient Medications Acetaminophen (Tylenol) 650 mg Q4H PRN PO TEMP > 100.4; Start 10/11/17 at 19:30 Albumin Human 100 ml @ 60 mls/hr UNSCH PRN IV WITH DIALYSIS; Start 10/15/17 at 16:45 Amlodipine Besylate (Norvasc) 10 mg DAILY PO Last administered on 10/24/17at 09: 50; Start 10/12/17 at 09:00 Calcium Acetate (Phoslo) 667 mg TID PO Last administered on 10/24/17at 19:09; Start 10/13/17 at 18:00 Cefazolin Sodium/ Dextrose 50 ml @ 100 mls/hr MEDICAL COST CONSULTANT IV Last administered on 10/19/17at 08:40; Start 10/18/17 at 09:30; Stop 10/22/17 at 09:29; Status DC Chlorhexidine Gluconate (Chlorhexidine 2% Cloth) 3 pack UNSCH PRN TOPICAL HYGIENIC CARE; Start 10/11/17 at 21:00; Stop 10/16/17 at 20:57; Status DC Clonidine (Catapres) 0.1 mg ONCE ONCE PO ; Start 10/12/17 at 02:00; Stop at 02:01; Status DC Clonidine (Catapres-Tts 0.1mg Patch.7d) 1 patch Q7D T-DERMAL Last administered on 10/13/17at 17:00; Start 10/13/17 at 17:00; Stop 10/15/17 at 08:27; Status DC Clonidine (Catapres-Tts 0.2 Mg Patch.7d) 1 patch Q7D T-DERMAL Last administered on 10/22/17at 08:50; Start 10/15/17 at 10:00 Dextrose (D50w (Vial) Inj) 50 ml UNSCH PRN IV PUSH HYPOGLYCEMIA-SEE COMMENTS Last administered on 10/12/17at 02:09; Start 10/11/17 at 19:30 Dextrose/Sodium Chloride 1,000 ml @ 40 mls/hr Q24H IV Last administered on 10/22at 19:00; Start 10/17/17 at 17:45 Diphenhydramine HCl (Benadryl) 25 mg UNSCH PRN PO for hives/itching/anaphylaxis ; Start 10/11/17 at 19:15 Epoetin Luis Miguel (Epogen Inj) 10,000 units UNSCH PRN IV PUSH WITH DIALYSIS Last administered on 10/22/17at 15:11; Start 10/13/17 at 14:30 Folic Acid (Folate) 0.5 mg DAILY PO Last administered on 10/24/17at 09:51; Start 10/12/17 at 09:00 Furosemide (Lasix) 60 mg DAILY@0900,1800 PO Last administered on 10/11/17at 20: 15; Start 10/11/17 at 20:15; Status Future Hold Gelatin (Gelfoam 12 Mm/7 Mm Top) 1 foam UNSCH PRN TOP SEE LABEL COMMENTS; Start 10/11/17 at 19:15 Gentamicin Sulfate (Gentamicin Inj) 20 mg UNSCH PRN OTHER WITH DIALYSIS Last administered on 10/22/17at 15:11; Start 10/11/17 at 19:15 Glucagon (Glucagon Inj) 1 mg UNSCH PRN OTHER HYPOGLYCEMIA-SEE COMMENTS; Start 10/11/17 at 19:30 Heparin Sodium (Porcine) (Heparin Inj) UNSCH PRN IV FLUSH SEE PROTOCOL; Start 10/19/17 at 09:15 Hydralazine HCl (Apresoline Inj) 20 mg Q4H PRN IV PUSH SBP>160, DBP>90 Last administered on 10/17/17at 13:10; Start 10/12/17 at 13:15 Hydralazine HCl (Apresoline) 50 mg Q8H PO Last administered on 10/25/17at 00:01; Start 10/18/17 at 16:00 Insulin Aspart (NovoLOG SUPPLEMENTAL SCALE) 1 ACHS SLIDING SCALE SQ Last administered on 10/24/17at 19:08; Start 10/11/17 at 21:00 Insulin Human Isoph/Insulin Regular (NovoLIN 70/30 INJ) 10 units ONCE ONCE SQ Last administered on 10/21/17at 12:30; Start 10/21/17 at 12:15; Stop 10/21/17 at 12: 55; Status DC Insulin Human NPH (NovoLIN N INJ) 28 units DAILY@08 SQ Last administered on 10/24at 09:53; Start 10/23/17 at 08:00 Iron Sucrose 100 mg/Sodium Chloride 105 ml @ 105 mls/hr DAILY IV Last administered on 10/17/17at 08:08; Start 10/15/17 at 16:45; Stop 10/17/17 at 09:59 ; Status DC Labetalol HCl (Trandate Inj) 10 mg Q4H PRN IV PUSH SBP> OR = 180, DBP> OR = 100 Last administered on 10/19/17at 10:43; Start 10/12/17 at 08:15 Losartan Potassium (Cozaar) 25 mg DAILY PO Last administered on 10/24/17at 09:51 ; Start 10/19/17 at 15:45 Mannitol (Mannitol Inj) 12.5 gm UNSCH PRN IV WITH DIALYSIS; Start 10/11/17 at 19:15 Metoclopramide HCl (Reglan Inj) 5 mg Q8H IV PUSH Last administered on 10/25/17at 00:01; Start 10/20/17 at 17:00 Metoprolol Tartrate (Lopressor) 50 mg Q12HR PO Last administered on 10/24/17at 21 :04; Start 10/14/17 at 21:00 Miscellaneous Information ALL NURSING DEPARTME... UNSCH PRN .XX SEE LABEL COMMENTS; Start 10/15/17 at 13:17; Stop 10/16/17 at 13:16; Status DC Naloxone HCl (Narcan Inj) 0.4 mg UNSCH PRN IV PUSH SEE LABEL COMMENTS; Start at 19:30 Nitroglycerin (Nitrostat Sl) 0.4 mg UNSCH PRN SL CHEST PAIN; Start 10/11/17 at 19:15 Ondansetron HCl (Zofran Inj) 4 mg Q6H PRN IVP NAUSEA OR VOMITING Last administered on 10/21/17at 18:15; Start 10/11/17 at 19:30 Pantoprazole Sodium (Protonix) 40 mg DAILY PO Last administered on 10/24/17at 09: 51; Start 10/16/17 at 09:00 Piperacillin Sod/ Tazobactam Sod 50 ml @ 100 mls/hr Q12H IV Last administered on 10/15/17at 08:00; Start 10/12/17 at 20:00; Stop 10/15/17 at 16:40; Status DC Potassium Chloride (KCl) 30 meq ONCE ONCE PO Last administered on 10/17/17at 08 :07; Start 10/17/17 at 08:00; Stop 10/17/17 at 08:01; Status DC Prochlorperazine Edisylate (Compazine Inj) 5 mg ONCE ONCE IV PUSH Last administered on 10/13/17at 01:32; Start 10/13/17 at 01:30; Stop 10/13/17 at 01:31 ; Status DC Sodium Chloride (NS Flush) UNSCH PRN IV FLUSH SEE PROTOCOL; Start 10/19/17 at 09:15 Trimethobenzamide HCl (Tigan Inj) 200 mg Q6H PRN IM NAUSEA OR VOMITING Last administered on 10/15/17at 08:31; Start 10/12/17 at 16:45 Vancomycin HCl 1000 mg/Sodium Chloride 250 ml @ 250 mls/hr MEDICAL COST CONSULTANT IV Last administered on 10/19/17at 08:40; Start 10/18/17 at 09:30; Stop 10/22/17 at 09:29 ; Status DC A/P Problem List: (1) Acute renal failure ICD Code: N17.9 - Acute kidney failure, unspecified Status: Acute (2) ESRD (end stage renal disease) on dialysis ICD Code: N18.6 - End stage renal disease; Z99.2 - Dependence on renal dialysis (3) Hypertension ICD Code: I10 - Essential (primary) hypertension (4) IDDM (insulin dependent diabetes mellitus) ICD Code: E11.9 - Type 2 diabetes mellitus without complications; Z79.4 - USP (current) use of insulin Assessment and Plan ESRD with Dialysis D[facility] on [facility] nephrology following. Hypertension- Overall Controlled, Currently on Cozaar we'll continue monitor blood pressure trends. Nausea/Vomiting Nausea related to dialysis treatments, treat PRN with zofran Gastric emptying test incomplete and unable to tolerate the procedure due to nausea and vomiting. continue Reglan Diabetes, Insulin Dependant Blood sugars labile, 70/30 NPH insulin dosing adjusted to prevent hypoglycemia Will increase 70/30 NPH insulin to 30 units a.m. dosing and continue 10 units p.m. Accuchecks with sliding scale insulin coverage Diabetic Renal diet Monitor blood sugars GI Bleed- hemoglobin remained stable EGD with biopsy revealed gastritis and esophagitis, PPI recommended Appreciate GI recommendations. Anemia, acute on chronic due to GI bleeding on chronic anemia due to end-stage renal disease -hemoglobin has remained stable. generalized weakness- consult PT. DVT Prophylaxis SCD, [place] hose Anticoagulants held due to GI bleed Discharge Planning awaiting HD to be set-up as outpatient. Bessy Salinas MD Oct 25, 2017 08:53
[2017-10-25] MEDS: SODIUM CHLORIDE 0.9% FLUSH 10 ML FLUSH IV FLUSH SCH ×2 (09:00→22:44)
[2017-10-25] MEDS: METOPROLOL TARTRATE 50 MG TAB PO SCH ×2 (09:00→22:39)
[2017-10-25] MEDS: PANTOPRAZOLE SOD 40 MG DELAYED RELEASE TAB PO SCH (09:00)
[2017-10-25] MEDS: CALCIUM ACETATE 667 MG CAP PO SCH ×3 (09:00→17:46)
[2017-10-25] MEDS: FOLIC ACID 1 MG TAB PO SCH (09:00)
[2017-10-25] MEDS: LOSARTAN 25 MG TAB PO SCH (09:00)
--- NOTE | 2017-10-25 11:29 | HHI.NPPN ---
Subjective History of Present Illness The patient is a 27 yo [facility] male with PMHx of ESRD on HD, IDDM since age 10 & hypertension who presented to this facility on 10/11 with his mother with complaints of SOB, edema, fatigue, weakness, and nausea. Is ESRD and been receiving HD [facility] Mond[facility] and at a facility in [place]. Last outpatient tx this past . States that he moved here on Wednesday without any dialysis arrangements. Mother claims they have been trying to get him into a local unit, but without success. He was admitted at this facility this past April with ARF and accelerated hypertension. Given his severe renal impairment, he underwent a kidney biopsy that confirmed diabetic nephropathy as well as glomerulosclerosis. He was started on HD in [place] in late August/early September. Is moving here permanently with his mother and is in need of dialysis arrangements locally. Currently, the patient is weak and fatigued. He received emergent HD last night given his pulmonary edema. BP has been quite elevated. Unable to tolerate po medications and is currently on Labetalol IV for BP control. Interval History Patient with no verbal complaints today. Review of Systems General Constitutional: Fatigue Gastrointestinal Gastrointestinal: Nausea & Vomiting Objective Data Data Vital Signs Date Time Temp Pulse Resp B/P (MAP) Pulse Ox O2 Delivery O2 Flow Rate FiO2 10/25/17 11:04 83 10/25/17 08:00 97.8 85 18 137/84 (101) 98 10/25/17 04:00 97.1 82 16 138/82 (100) 99 10/25/17 00:00 95.9 89 16 140/82 (101) 98 10/24/17 21:00 81 10/24/17 20:00 95.7 83 16 138/84 (102) 99 10/24/17 16:00 97.5 81 17 120/73 (89) 98 10/24/17 12:00 96.2 83 16 155/85 (108) 97 -: 10/24/17 0554 10/24/17 0554 Tubes & Lines: Vas-Cath Physical Exam General Appearance: No Acute Distress, Comfortable Neck Neck Exam: Neck Supple Pulmonary Resp Exam: Clear Bilaterally, Breath Sounds Equal Cardiology CV Exam: Regular, Normal Sinus Rhythm Gastrointestinal/Abdomen GI Exam: Soft Integumentary Skin Exam: Clear, Warm Extremeties Extremities Exam: Trace Edema (periorbital) Neurologic Neuro Exam: Awake Psychiatric Psych Exam: Appropriate Responses Assessment/Plan Discussed Condition With: Patient Problem List: (1) ESRD (end stage renal disease) on dialysis ICD Codes: N18.6 - End stage renal disease; Z99.2 - Dependence on renal dialysis Plan: Patient clear for discharge from this facility from a nephrology point of view to his previous provider. Patient's Vas-Cath has been replaced by a PermCath. 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 I will continue to provide inpatient nephrology coverage during this admission as consulted. Medications should be adjusted for the patient's ESRD. Avoid gadolinium. (2) Pulmonary edema ICD Codes: J81.1 - Chronic pulmonary edema Plan: Volume status improved with dialysis. 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 Plan Discharge planning per primary care physician. Alyson Cantu MD Oct 25, 2017 11:29
[2017-10-25] MEDS: INSULIN HUMAN NPH 1,000 UNITS/10 ML VIAL SQ SCH (16:16)
[2017-10-25] MEDS: DEXT 5%-NACL 0.9% 1000 ML INJ 1,000 ML IV SCH (17:45)
[2017-10-26] MEDS: hydrALAZINE HCL 50 MG TAB PO SCH ×3 (00:58→17:12)
[2017-10-26] MEDS: METOCLOPRAMIDE HCL 10 MG/2 ML VIAL IV PUSH SCH ×3 (01:01→17:13)
[2017-10-26 01:27] VITALS: PULSE 90
[2017-10-26 08:00] VITALS: BP 160/99; PULSE 86; RESP 17; TEMP 98; O2SAT 99
[2017-10-26] MEDS: INSULIN HUMAN NPH 1,000 UNITS/10 ML VIAL SQ SCH ×2 (08:00→17:00)
[2017-10-26] MEDS: CALCIUM ACETATE 667 MG CAP PO SCH ×3 (08:38→17:12)
[2017-10-26] MEDS: INSULIN ASPART SUPPLEMENTAL SCALE SQ SCH ×4 (08:38→20:12)
[2017-10-26] MEDS: FOLIC ACID 1 MG TAB PO SCH (08:38)
[2017-10-26] MEDS: PANTOPRAZOLE SOD 40 MG DELAYED RELEASE TAB PO SCH (08:38)
[2017-10-26] MEDS: LOSARTAN 25 MG TAB PO SCH (08:38)
[2017-10-26] MEDS: METOPROLOL TARTRATE 50 MG TAB PO SCH ×2 (08:38→21:35)
[2017-10-26] MEDS: SODIUM CHLORIDE 0.9% FLUSH 10 ML FLUSH IV FLUSH SCH ×2 (08:39→21:34)
--- NOTE | 2017-10-26 08:54 | HHI.PR ---
Subjective Remarks in no acute distress. resting comfortably. on and off mild nausea but with no emesis. no new complaints. Objective Vitals Vital Signs Date Time Temp Pulse Resp B/P (MAP) Pulse Ox O2 Delivery O2 Flow Rate FiO2 10/26/17 01:27 90 10/25/17 22:00 97.3 83 22 151/85 (107) 98 10/25/17 17:14 84 10/25/17 16:00 97.7 80 18 134/86 (102) 99 10/25/17 12:00 96.7 84 18 158/94 (115) 99 10/25/17 11:04 83 I/O 10/25/17 10/25/17 10/25/17 10/26/17 10/26/17 10/26/17 06:59 14:59 22:59 06:59 14:59 22:59 Intake Total 420 ml 0 ml Output Total 3000 ml Balance 420 ml -3000 ml Intake Oral 420 ml IV Total 0 ml Hemodialysis 3000 ml # Voids 1 # Bowel Movements 0 Result Diagram: 10/24/17 0554 10/24/17 0554 Imaging Last Impressions Central Venous Line 10/19/17 0000 Signed Impressions: Service Date/Time: Thursday, October 19, 2017 00:00 - CONCLUSION: Uncomplicated catheter removal. Darshan Aguilar MD Catheter Placement X-Ray 10/19/17 0000 Signed Impressions: Service Date/Time: Thursday, October 19, 2017 09:01 - CONCLUSION: Uncomplicated PermaCath placement as above. Darshan Aguilar MD Abdomen Ultrasound 10/14/17 0000 Signed Impressions: Service Date/Time: September 07:47 - CONCLUSION: 1. Echogenic kidneys suggesting medical renal disease. 2. Possible 2 cm solid mass in the midpole of the left kidney. Recommend MRI abdomen for further evaluation. 3. Small left pleural effusion. Nehemias Costa MD Chest X-Ray 10/11/17 [id number] Signed Impressions: Service Date/Time: Wednesday, October 11, 2017 17:01 - CONCLUSION: Cardiomegaly with moderate fluid overload. Kevan Lenz MD FACR Objective Remarks GENERAL: This is a well-nourished, well-developed patient, in no apparent distress. CARDIOVASCULAR: Regular rate and regular rhythm without murmurs, gallops, or rubs. RESPIRATORY: Clear to auscultation. Breath sounds equal bilaterally. No wheezes , rales, or rhonchi. GASTROINTESTINAL: Abdomen soft, non-tender, nondistended. Normal, active bowel sounds MUSCULOSKELETAL: Extremities without clubbing, cyanosis, or edema. NEURO: Alert & Oriented x4 to person, place, time, situation. Moves all ext x4 Procedures 10/15 EGD with biopsy SIDNEY KIRAN Signed EXAM DATE/TIME: 10/19/2017 09:01 [facility] COMPARISON: No previous studies available for comparison. INDICATIONS : Patient presents with endstage renal disease in need of non tunneled catheter removal for tunneled catheter placement for dailysis. MEDICAL HISTORY : Insulin-dependent diabetes mellitus End-stage renal disease on dialysis Hypertension SURGICAL HISTORY : Renal biopsy ENCOUNTER: Initial ACUITY: 1 week PAIN SCORE: 0/10 LOCATION: N/A FLUORO TIME: 1.1 minutes IMAGE SERIES: 0 SEDATION TIME: 30 minutes ACCESS: Right internal jugular vein SEDATION: 1.) 1.5 mg midazolam (Versed) IV 2.) 75 mcg fentanyl (Sublimaze) IV Prophylactic antibiotics were administered with appropriate pre-procedure timing. Vancomycin within 2 hours of procedure, Ancef (or alternative) within 1 hour of procedure. DEVICE: 1. 15 [place] dual lumen 19 cm Lan II Plus catheter PROCEDURE : 1. Ultrasound-guided venipuncture. 2. PermaCath placement. 3. Conscious sedation with continuous EKG and oximetry monitoring. The risks, benefits and alternatives to the procedure were explained and verbal and written consent was obtained. The site was prepped in sterile fashion. Full sterile technique was used, including cap, mask, sterile gloves and gown and a large sterile sheet. Hand hygiene and 2% chlorhexidine and/or betadine/ alcohol prep was utilized per protocol for cutaneous antisepsis. Sterile gel and sterile probe cover were utilized for ultrasound guidance. The skin and subcutaneous tissues were infiltrated with local anesthetic solution. With ultrasound and fluoroscopic guidance a dermatotomy was created over the prescribed vein. A micropuncture set was used to access the targeted vein and serial dilatation was performed to accept the prescribed length catheter. A subcutaneous tunnel was created in a retrograde fashion the catheter was pulled through the tunnel. The catheter was flushed and assembled and locked with heparin. The catheter was sutured in place. Conscious sedation was performed with the prescribed dosages and duration as above in the presence of an independent trained radiology nurse to assist in the monitoring of the patient. EKG and oximetry remained stable throughout the procedure. The patient tolerated the procedure well and there were no complications. The patient was sent to post anesthesia recovery in stable condition. CONCLUSION: Uncomplicated PermaCath placement as above. Darshan Aguilar MD on October 19, 2017 at 9:38 Medications and IVs Inpatient Medications Acetaminophen (Tylenol) 650 mg Q4H PRN PO TEMP > 100.4; Start 10/11/17 at 19:30 Albumin Human 100 ml @ 60 mls/hr UNSCH PRN IV WITH DIALYSIS; Start 10/15/17 at 16:45 Amlodipine Besylate (Norvasc) 10 mg DAILY PO Last administered on 10/26/17at 08: 38; Start 10/12/17 at 09:00 Calcium Acetate (Phoslo) 667 mg TID PO Last administered on 10/26/17at 08:38; Start 10/13/17 at 18:00 Cefazolin Sodium/ Dextrose 50 ml @ 100 mls/hr MANAGED CARE SPECIALIST IV Last administered on 10/19/17at 08:40; Start 10/18/17 at 09:30; Stop 10/22/17 at 09:29; Status DC Chlorhexidine Gluconate (Chlorhexidine 2% Cloth) 3 pack UNSCH PRN TOPICAL HYGIENIC CARE; Start 10/11/17 at 21:00; Stop 10/16/17 at 20:57; Status DC Clonidine (Catapres) 0.1 mg ONCE ONCE PO ; Start 10/12/17 at 02:00; Stop at 02:01; Status DC Clonidine (Catapres-Tts 0.1mg Patch.7d) 1 patch Q7D T-DERMAL Last administered on 10/13/17at 17:00; Start 10/13/17 at 17:00; Stop 10/15/17 at 08:27; Status DC Clonidine (Catapres-Tts 0.2 Mg Patch.7d) 1 patch Q7D T-DERMAL Last administered on 10/22/17at 08:50; Start 10/15/17 at 10:00 Dextrose (D50w (Vial) Inj) 50 ml UNSCH PRN IV PUSH HYPOGLYCEMIA-SEE COMMENTS Last administered on 10/12/17at 02:09; Start 10/11/17 at 19:30 Dextrose/Sodium Chloride 1,000 ml @ 40 mls/hr Q24H IV Last administered on 10/22at 19:00; Start 10/17/17 at 17:45 Diphenhydramine HCl (Benadryl) 25 mg UNSCH PRN PO for hives/itching/anaphylaxis ; Start 10/11/17 at 19:15 Epoetin Luis Miguel (Epogen Inj) 10,000 units UNSCH PRN IV PUSH WITH DIALYSIS Last administered on 10/22/17at 15:11; Start 10/13/17 at 14:30 Folic Acid (Folate) 0.5 mg DAILY PO Last administered on 10/26/17at 08:38; Start 10/12/17 at 09:00 Furosemide (Lasix) 60 mg DAILY@0900,1800 PO Last administered on 10/11/17at 20: 15; Start 10/11/17 at 20:15; Status Future Hold Gelatin (Gelfoam 12 Mm/7 Mm Top) 1 foam UNSCH PRN TOP SEE LABEL COMMENTS; Start 10/11/17 at 19:15 Gentamicin Sulfate (Gentamicin Inj) 20 mg UNSCH PRN OTHER WITH DIALYSIS Last administered on 10/22/17at 15:11; Start 10/11/17 at 19:15 Glucagon (Glucagon Inj) 1 mg UNSCH PRN OTHER HYPOGLYCEMIA-SEE COMMENTS; Start 10/11/17 at 19:30 Heparin Sodium (Porcine) (Heparin Inj) UNSCH PRN IV FLUSH SEE PROTOCOL; Start 10/19/17 at 09:15 Hydralazine HCl (Apresoline Inj) 20 mg Q4H PRN IV PUSH SBP>160, DBP>90 Last administered on 10/17/17at 13:10; Start 10/12/17 at 13:15 Hydralazine HCl (Apresoline) 50 mg Q8H PO Last administered on 10/26/17at 08:38; Start 10/18/17 at 16:00 Insulin Aspart (NovoLOG SUPPLEMENTAL SCALE) 1 ACHS SLIDING SCALE SQ Last administered on 10/26/17at 08:38; Start 10/11/17 at 21:00 Insulin Human Isoph/Insulin Regular (NovoLIN 70/30 INJ) 10 units ONCE ONCE SQ Last administered on 10/21/17at 12:30; Start 10/21/17 at 12:15; Stop 10/21/17 at 12: 55; Status DC Insulin Human NPH (NovoLIN N INJ) 30 units DAILY@08 SQ Last administered on 10/26at 08:00; Start 10/26/17 at 08:00 Iron Sucrose 100 mg/Sodium Chloride 105 ml @ 105 mls/hr DAILY IV Last administered on 10/17/17at 08:08; Start 10/15/17 at 16:45; Stop 10/17/17 at 09:59 ; Status DC Labetalol HCl (Trandate Inj) 10 mg Q4H PRN IV PUSH SBP> OR = 180, DBP> OR = 100 Last administered on 10/19/17at 10:43; Start 10/12/17 at 08:15 Losartan Potassium (Cozaar) 25 mg DAILY PO Last administered on 10/26/17at 08:38 ; Start 10/19/17 at 15:45 Mannitol (Mannitol Inj) 12.5 gm UNSCH PRN IV WITH DIALYSIS; Start 10/11/17 at 19:15 Metoclopramide HCl (Reglan Inj) 5 mg Q8H IV PUSH Last administered on 10/26/17at 08:45; Start 10/20/17 at 17:00 Metoprolol Tartrate (Lopressor) 50 mg Q12HR PO Last administered on 10/26/17at 08 :38; Start 10/14/17 at 21:00 Miscellaneous Information ALL NURSING DEPARTME... UNSCH PRN .XX SEE LABEL COMMENTS; Start 10/15/17 at 13:17; Stop 10/16/17 at 13:16; Status DC Naloxone HCl (Narcan Inj) 0.4 mg UNSCH PRN IV PUSH SEE LABEL COMMENTS; Start at 19:30 Nitroglycerin (Nitrostat Sl) 0.4 mg UNSCH PRN SL CHEST PAIN; Start 10/11/17 at 19:15 Ondansetron HCl (Zofran Inj) 4 mg Q6H PRN IVP NAUSEA OR VOMITING Last administered on 10/21/17at 18:15; Start 10/11/17 at 19:30 Pantoprazole Sodium (Protonix) 40 mg DAILY PO Last administered on 10/26/17at 08: 38; Start 10/16/17 at 09:00 Piperacillin Sod/ Tazobactam Sod 50 ml @ 100 mls/hr Q12H IV Last administered on 10/15/17at 08:00; Start 10/12/17 at 20:00; Stop 10/15/17 at 16:40; Status DC Potassium Chloride (KCl) 30 meq ONCE ONCE PO Last administered on 10/17/17at 08 :07; Start 10/17/17 at 08:00; Stop 10/17/17 at 08:01; Status DC Prochlorperazine Edisylate (Compazine Inj) 5 mg ONCE ONCE IV PUSH Last administered on 10/13/17at 01:32; Start 10/13/17 at 01:30; Stop 10/13/17 at 01:31 ; Status DC Sodium Chloride (NS Flush) UNSCH PRN IV FLUSH SEE PROTOCOL; Start 10/19/17 at 09:15 Trimethobenzamide HCl (Tigan Inj) 200 mg Q6H PRN IM NAUSEA OR VOMITING Last administered on 10/15/17at 08:31; Start 10/12/17 at 16:45 Vancomycin HCl 1000 mg/Sodium Chloride 250 ml @ 250 mls/hr MANAGED CARE SPECIALIST IV Last administered on 10/19/17at 08:40; Start 10/18/17 at 09:30; Stop 10/22/17 at 09:29 ; Status DC A/P Problem List: (1) Acute renal failure ICD Code: N17.9 - Acute kidney failure, unspecified Status: Acute (2) ESRD (end stage renal disease) on dialysis ICD Code: N18.6 - End stage renal disease; Z99.2 - Dependence on renal dialysis (3) Hypertension ICD Code: I10 - Essential (primary) hypertension (4) IDDM (insulin dependent diabetes mellitus) ICD Code: E11.9 - Type 2 diabetes mellitus without complications; 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 Hypertension- Overall Controlled, Currently on Cozaar we'll continue monitor blood pressure trends. Nausea/Vomiting-overall improving. Nausea related to dialysis treatments, treat PRN with zofran Gastric emptying test incomplete and unable to tolerate the procedure due to nausea and vomiting. continue Reglan Diabetes, Insulin Dependant Blood sugars labile, 70/30 NPH insulin dosing adjusted to prevent hypoglycemia increased 70/30 NPH insulin to 30 units a.m. dosing and continue 10 units p.m. Accuchecks with sliding scale insulin coverage will monitor and adjust the regimen as needed. Diabetic Renal diet Monitor blood sugars. GI Bleed- hemoglobin remained stable EGD with biopsy revealed gastritis and esophagitis, PPI recommended Appreciate GI recommendations. Anemia, acute on chronic due to GI bleeding on chronic anemia due to end-stage renal disease -hemoglobin has remained stable. generalized weakness- consulted PT. DVT Prophylaxis SCD, Hunter hose Anticoagulants held due to GI bleed Discharge Planning awaiting HD to be set-up as outpatient. Bessy Salinas MD Oct 26, 2017 08:54
[2017-10-26 10:48] VITALS: O2SAT 93
[2017-10-26 12:00] VITALS: BP 152/90; PULSE 81; RESP 17; TEMP 98; O2SAT 99
[2017-10-26 16:35] VITALS: BP 148/87; PULSE 85; RESP 16; TEMP 97.9; O2SAT 98
[2017-10-26] MEDS: DEXT 5%-NACL 0.9% 1000 ML INJ 1,000 ML IV SCH (16:48)
[2017-10-26] MEDS: ONDANSETRON HCL 4 MG/2 ML VIAL IVP PRN (17:16)
[2017-10-26 20:00] VITALS: BP 154/90; PULSE 86; RESP 20; TEMP 97.2; O2SAT 97
[2017-10-27] VITALS: BP 139/88; PULSE 86; RESP 18; TEMP 97.6; O2SAT 97
[2017-10-27] MEDS: METOCLOPRAMIDE HCL 10 MG/2 ML VIAL IV PUSH SCH ×3 (00:05→17:20)
[2017-10-27] MEDS: hydrALAZINE HCL 50 MG TAB PO SCH ×3 (00:05→14:36)
[2017-10-27] MEDS: ONDANSETRON HCL 4 MG/2 ML VIAL IVP PRN ×3 (04:04→21:38)
[2017-10-27] MEDS: INSULIN ASPART SUPPLEMENTAL SCALE SQ SCH ×4 (07:24→21:43)
[2017-10-27 08:00] VITALS: BP 174/99; PULSE 85; RESP 19; TEMP 97.9; O2SAT 99
[2017-10-27] MEDS: LOSARTAN 25 MG TAB PO SCH (08:01)
[2017-10-27] MEDS: METOPROLOL TARTRATE 50 MG TAB PO SCH ×2 (08:01→21:37)
[2017-10-27] MEDS: CALCIUM ACETATE 667 MG CAP PO SCH ×3 (08:01→17:20)
[2017-10-27] MEDS: FOLIC ACID 1 MG TAB PO SCH (08:01)
[2017-10-27] MEDS: PANTOPRAZOLE SOD 40 MG DELAYED RELEASE TAB PO SCH (08:01)
[2017-10-27] MEDS: SODIUM CHLORIDE 0.9% FLUSH 10 ML FLUSH IV FLUSH SCH ×2 (08:02→21:42)
[2017-10-27] MEDS: INSULIN HUMAN NPH 1,000 UNITS/10 ML VIAL SQ SCH ×2 (08:02→17:00)
--- NOTE | 2017-10-27 10:03 | HHI.PR ---
Subjective Remarks in no acute distress. has on and off nausea- had an episode of emesis earlier. otherwise no other complaints. Objective Vitals Vital Signs Date Time Temp Pulse Resp B/P (MAP) Pulse Ox O2 Delivery O2 Flow Rate FiO2 10/27/17 08:00 97.9 85 19 174/99 (124) 99 10/27/17 00:00 97.6 86 18 139/88 (105) 97 10/26/17 20:00 97.2 86 20 154/90 (111) 97 10/26/17 16:35 97.9 85 16 148/87 (107) 98 10/26/17 12:00 98.0 81 17 152/90 (110) 99 10/26/17 10:48 93 21 I/O 10/26/17 10/26/17 10/26/17 10/27/17 10/27/17 10/27/17 07:00 15:00 23:00 07:00 15:00 23:00 Output Total 200 ml Balance -200 ml Output Urine Total 200 ml Result Diagram: 10/24/17 0554 10/24/17 0554 Imaging Last Impressions Central Venous Line 10/19/17 0000 Signed Impressions: Service Date/Time: Thursday, October 19, 2017 00:00 - CONCLUSION: Uncomplicated catheter removal. Darshan Aguilar MD Catheter Placement X-Ray 10/19/17 0000 Signed Impressions: Service Date/Time: Thursday, October 19, 2017 09:01 - CONCLUSION: Uncomplicated PermaCath placement as above. Darshan Aguilar MD Abdomen Ultrasound 10/14/17 0000 Signed Impressions: Service Date/Time: September 07:47 - CONCLUSION: 1. Echogenic kidneys suggesting medical renal disease. 2. Possible 2 cm solid mass in the midpole of the left kidney. Recommend MRI abdomen for further evaluation. 3. Small left pleural effusion. Nehemias Costa MD Chest X-Ray 10/11/17 [id number] Signed Impressions: Service Date/Time: Wednesday, October 11, 2017 17:01 - CONCLUSION: Cardiomegaly with moderate fluid overload. Kevan Lenz MD FACR Objective Remarks GENERAL: This is a well-nourished, well-developed patient, in no apparent distress. CARDIOVASCULAR: Regular rate and regular rhythm without murmurs, gallops, or rubs. RESPIRATORY: Clear to auscultation. Breath sounds equal bilaterally. No wheezes , rales, or rhonchi. GASTROINTESTINAL: Abdomen soft, non-tender, nondistended. Normal, active bowel sounds MUSCULOSKELETAL: Extremities without clubbing, cyanosis, or edema. NEURO: Alert & Oriented x4 to person, place, time, situation. Moves all ext x4 Procedures 10/15 EGD with biopsy SIDNEY KIRAN Signed EXAM DATE/TIME: 10/19/2017 09:01 [facility] COMPARISON: No previous studies available for comparison. INDICATIONS : Patient presents with endstage renal disease in need of non tunneled catheter removal for tunneled catheter placement for dailysis. MEDICAL HISTORY : Insulin-dependent diabetes mellitus End-stage renal disease on dialysis Hypertension SURGICAL HISTORY : Renal biopsy ENCOUNTER: Initial ACUITY: 1 week PAIN SCORE: 0/10 LOCATION: N/A FLUORO TIME: 1.1 minutes IMAGE SERIES: 0 SEDATION TIME: 30 minutes ACCESS: Right internal jugular vein SEDATION: 1.) 1.5 mg midazolam (Versed) IV 2.) 75 mcg fentanyl (Sublimaze) IV Prophylactic antibiotics were administered with appropriate pre-procedure timing. Vancomycin within 2 hours of procedure, Ancef (or alternative) within 1 hour of procedure. DEVICE: 1. 15 [place] dual lumen 19 cm Lan II Plus catheter PROCEDURE : 1. Ultrasound-guided venipuncture. 2. PermaCath placement. 3. Conscious sedation with continuous EKG and oximetry monitoring. The risks, benefits and alternatives to the procedure were explained and verbal and written consent was obtained. The site was prepped in sterile fashion. Full sterile technique was used, including cap, mask, sterile gloves and gown and a large sterile sheet. Hand hygiene and 2% chlorhexidine and/or betadine/ alcohol prep was utilized per protocol for cutaneous antisepsis. Sterile gel and sterile probe cover were utilized for ultrasound guidance. The skin and subcutaneous tissues were infiltrated with local anesthetic solution. With ultrasound and fluoroscopic guidance a dermatotomy was created over the prescribed vein. A micropuncture set was used to access the targeted vein and serial dilatation was performed to accept the prescribed length catheter. A subcutaneous tunnel was created in a retrograde fashion the catheter was pulled through the tunnel. The catheter was flushed and assembled and locked with heparin. The catheter was sutured in place. Conscious sedation was performed with the prescribed dosages and duration as above in the presence of an independent trained radiology nurse to assist in the monitoring of the patient. EKG and oximetry remained stable throughout the procedure. The patient tolerated the procedure well and there were no complications. The patient was sent to post anesthesia recovery in stable condition. CONCLUSION: Uncomplicated PermaCath placement as above. Darshan Aguilar MD on October 19, 2017 at 9:38 Medications and IVs Inpatient Medications Acetaminophen (Tylenol) 650 mg Q4H PRN PO TEMP > 100.4; Start 10/11/17 at 19:30 Albumin Human 100 ml @ 60 mls/hr UNSCH PRN IV WITH DIALYSIS; Start 10/15/17 at 16:45 Amlodipine Besylate (Norvasc) 10 mg DAILY PO Last administered on 10/27/17at 08: 01; Start 10/12/17 at 09:00 Calcium Acetate (Phoslo) 667 mg TID PO Last administered on 10/27/17at 08:01; Start 10/13/17 at 18:00 Cefazolin Sodium/ Dextrose 50 ml @ 100 mls/hr TOP EDGE BEVELER IV Last administered on 10/19/17at 08:40; Start 10/18/17 at 09:30; Stop 10/22/17 at 09:29; Status DC Chlorhexidine Gluconate (Chlorhexidine 2% Cloth) 3 pack UNSCH PRN TOPICAL HYGIENIC CARE; Start 10/11/17 at 21:00; Stop 10/16/17 at 20:57; Status DC Clonidine (Catapres) 0.1 mg ONCE ONCE PO ; Start 10/12/17 at 02:00; Stop at 02:01; Status DC Clonidine (Catapres-Tts 0.1mg Patch.7d) 1 patch Q7D T-DERMAL Last administered on 10/13/17at 17:00; Start 10/13/17 at 17:00; Stop 10/15/17 at 08:27; Status DC Clonidine (Catapres-Tts 0.2 Mg Patch.7d) 1 patch Q7D T-DERMAL Last administered on 10/22/17at 08:50; Start 10/15/17 at 10:00 Dextrose (D50w (Vial) Inj) 50 ml UNSCH PRN IV PUSH HYPOGLYCEMIA-SEE COMMENTS Last administered on 10/12/17at 02:09; Start 10/11/17 at 19:30 Dextrose/Sodium Chloride 1,000 ml @ 40 mls/hr Q24H IV Last administered on 10/22at 19:00; Start 10/17/17 at 17:45 Diphenhydramine HCl (Benadryl) 25 mg UNSCH PRN PO for hives/itching/anaphylaxis ; Start 10/11/17 at 19:15 Epoetin Luis Miguel (Epogen Inj) 10,000 units UNSCH PRN IV PUSH WITH DIALYSIS Last administered on 10/22/17at 15:11; Start 10/13/17 at 14:30 Folic Acid (Folate) 0.5 mg DAILY PO Last administered on 10/27/17at 08:01; Start 10/12/17 at 09:00 Furosemide (Lasix) 60 mg DAILY@0900,1800 PO Last administered on 10/11/17at 20: 15; Start 10/11/17 at 20:15; Status Future Hold Gelatin (Gelfoam 12 Mm/7 Mm Top) 1 foam UNSCH PRN TOP SEE LABEL COMMENTS; Start 10/11/17 at 19:15 Gentamicin Sulfate (Gentamicin Inj) 20 mg UNSCH PRN OTHER WITH DIALYSIS Last administered on 10/22/17at 15:11; Start 10/11/17 at 19:15 Glucagon (Glucagon Inj) 1 mg UNSCH PRN OTHER HYPOGLYCEMIA-SEE COMMENTS; Start 10/11/17 at 19:30 Heparin Sodium (Porcine) (Heparin Inj) UNSCH PRN IV FLUSH SEE PROTOCOL; Start 10/19/17 at 09:15 Hydralazine HCl (Apresoline Inj) 20 mg Q4H PRN IV PUSH SBP>160, DBP>90 Last administered on 10/17/17at 13:10; Start 10/12/17 at 13:15 Hydralazine HCl (Apresoline) 50 mg Q8H PO Last administered on 10/27/17at 08:01; Start 10/18/17 at 16:00 Insulin Aspart (NovoLOG SUPPLEMENTAL SCALE) 1 ACHS SLIDING SCALE SQ Last administered on 10/26/17at 17:13; Start 10/11/17 at 21:00 Insulin Human Isoph/Insulin Regular (NovoLIN 70/30 INJ) 10 units ONCE ONCE SQ Last administered on 10/21/17at 12:30; Start 10/21/17 at 12:15; Stop 10/21/17 at 12: 55; Status DC Insulin Human NPH (NovoLIN N INJ) 30 units DAILY@08 SQ Last administered on 10/27at 08:02; Start 10/26/17 at 08:00 Iron Sucrose 100 mg/Sodium Chloride 105 ml @ 105 mls/hr DAILY IV Last administered on 10/17/17at 08:08; Start 10/15/17 at 16:45; Stop 10/17/17 at 09:59 ; Status DC Labetalol HCl (Trandate Inj) 10 mg Q4H PRN IV PUSH SBP> OR = 180, DBP> OR = 100 Last administered on 10/19/17at 10:43; Start 10/12/17 at 08:15 Losartan Potassium (Cozaar) 25 mg DAILY PO Last administered on 10/27/17at 08:01 ; Start 10/19/17 at 15:45 Mannitol (Mannitol Inj) 12.5 gm UNSCH PRN IV WITH DIALYSIS; Start 10/11/17 at 19:15 Metoclopramide HCl (Reglan Inj) 5 mg Q8H IV PUSH Last administered on 10/27/17at 08:02; Start 10/20/17 at 17:00 Metoprolol Tartrate (Lopressor) 50 mg Q12HR PO Last administered on 10/27/17at 08 :01; Start 10/14/17 at 21:00 Miscellaneous Information ALL NURSING DEPARTME... UNSCH PRN .XX SEE LABEL COMMENTS; Start 10/15/17 at 13:17; Stop 10/16/17 at 13:16; Status DC Naloxone HCl (Narcan Inj) 0.4 mg UNSCH PRN IV PUSH SEE LABEL COMMENTS; Start at 19:30 Nitroglycerin (Nitrostat Sl) 0.4 mg UNSCH PRN SL CHEST PAIN; Start 10/11/17 at 19:15 Ondansetron HCl (Zofran Inj) 4 mg Q6H PRN IVP NAUSEA OR VOMITING Last administered on 10/27/17at 04:04; Start 10/11/17 at 19:30 Pantoprazole Sodium (Protonix) 40 mg DAILY PO Last administered on 10/27/17at 08: 01; Start 10/16/17 at 09:00 Piperacillin Sod/ Tazobactam Sod 50 ml @ 100 mls/hr Q12H IV Last administered on 10/15/17at 08:00; Start 10/12/17 at 20:00; Stop 10/15/17 at 16:40; Status DC Potassium Chloride (KCl) 30 meq ONCE ONCE PO Last administered on 10/17/17at 08 :07; Start 10/17/17 at 08:00; Stop 10/17/17 at 08:01; Status DC Prochlorperazine Edisylate (Compazine Inj) 5 mg ONCE ONCE IV PUSH Last administered on 10/13/17at 01:32; Start 10/13/17 at 01:30; Stop 10/13/17 at 01:31 ; Status DC Sodium Chloride (NS Flush) UNSCH PRN IV FLUSH SEE PROTOCOL; Start 10/19/17 at 09:15 Trimethobenzamide HCl (Tigan Inj) 200 mg Q6H PRN IM NAUSEA OR VOMITING Last administered on 10/15/17at 08:31; Start 10/12/17 at 16:45 Vancomycin HCl 1000 mg/Sodium Chloride 250 ml @ 250 mls/hr TOP EDGE BEVELER IV Last administered on 10/19/17at 08:40; Start 10/18/17 at 09:30; Stop 10/22/17 at 09:29 ; Status DC A/P Problem List: (1) Acute renal failure ICD Code: N17.9 - Acute kidney failure, unspecified Status: Acute (2) ESRD (end stage renal disease) on dialysis ICD Code: N18.6 - End stage renal disease; Z99.2 - Dependence on renal dialysis (3) Hypertension ICD Code: I10 - Essential (primary) hypertension (4) IDDM (insulin dependent diabetes mellitus) ICD Code: E11.9 - Type 2 diabetes mellitus without complications; 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 Hypertension- Overall Controlled, Currently on Cozaar we'll continue monitor blood pressure trends. Nausea/Vomiting-overall improving. Nausea related to dialysis treatments, treat PRN with zofran Gastric emptying test incomplete and unable to tolerate the procedure due to nausea and vomiting. continue Reglan Diabetes, Insulin Dependant Blood sugars labile, 70/30 NPH insulin dosing adjusted to prevent hypoglycemia increased 70/30 NPH insulin to 30 units a.m. dosing and continue 10 units p.m. Accuchecks with sliding scale insulin coverage will monitor and adjust the regimen as needed. Diabetic Renal diet Monitor blood sugars. GI Bleed- hemoglobin remained stable EGD with biopsy revealed gastritis and esophagitis, PPI recommended Appreciate GI recommendations. Anemia, acute on chronic due to GI bleeding on chronic anemia due to end-stage renal disease -hemoglobin has remained stable. generalized weakness- consulted PT. DVT Prophylaxis SCD, Hunter hose Anticoagulants held due to GI bleed Discharge Planning awaiting HD to be set-up as outpatient. Bessy Salinas MD Oct 27, 2017 10:03
[2017-10-27 12:00] VITALS: BP 136/81; PULSE 86; RESP 18; TEMP 97.5; O2SAT 100
[2017-10-27] MEDS: DEXT 5%-NACL 0.9% 1000 ML INJ 1,000 ML IV SCH (14:37)
[2017-10-27] MEDS: HEPARIN SODIUM - IV 10,000 UNITS/10 ML VIAL PRN (16:19)
[2017-10-27] MEDS: EPOETIN ALFA 10,000 UNITS/ML VIAL IV PUSH PRN (16:19)
[2017-10-27] MEDS: GENTAMICIN SULFATE 20 MG/2 ML VIAL OTHER PRN (16:19)
[2017-10-27 17:36] VITALS: BP 160/96; PULSE 81; RESP 18; TEMP 97.4; O2SAT 99
[2017-10-27 20:00] VITALS: BP 157/98; PULSE 87; RESP 18; TEMP 97.8; O2SAT 100
[2017-10-28] VITALS (7 sets, daily range): BP systolic 151–185; BP diastolic 88–110; PULSE 84–90; RESP 16–20; TEMP 96.2–98.9; O2SAT 98–100
[2017-10-28] MEDS: hydrALAZINE HCL 50 MG TAB PO SCH ×4 (01:27→17:39)
[2017-10-28] MEDS: METOCLOPRAMIDE HCL 10 MG/2 ML VIAL IV PUSH SCH ×3 (01:29→17:38)
[2017-10-28] MEDS: INSULIN ASPART SUPPLEMENTAL SCALE SQ SCH ×4 (08:00→20:31)
[2017-10-28] MEDS: INSULIN HUMAN NPH 1,000 UNITS/10 ML VIAL SQ SCH ×2 (08:00→17:45)
[2017-10-28] MEDS: SODIUM CHLORIDE 0.9% FLUSH 10 ML FLUSH IV FLUSH SCH ×2 (08:28→20:23)
[2017-10-28] MEDS: ONDANSETRON HCL 4 MG/2 ML VIAL IVP PRN (08:29)
[2017-10-28] MEDS: PANTOPRAZOLE SOD 40 MG DELAYED RELEASE TAB PO SCH (09:00)
[2017-10-28] MEDS: CALCIUM ACETATE 667 MG CAP PO SCH ×3 (09:00→17:38)
[2017-10-28] MEDS: LOSARTAN 25 MG TAB PO SCH ×2 (09:00→12:37)
[2017-10-28] MEDS: FOLIC ACID 1 MG TAB PO SCH (09:00)
[2017-10-28] MEDS: METOPROLOL TARTRATE 50 MG TAB PO SCH ×3 (09:00→20:23)
--- NOTE | 2017-10-28 11:26 | HHI.PR ---
Subjective Remarks Pt has no complaints. was asleep prior to me coming into the room. easily arousable, denies any pain, nausea or vomiting. Objective Vitals Vital Signs Date Time Temp Pulse Resp B/P (MAP) Pulse Ox O2 Delivery O2 Flow Rate FiO2 10/28/17 08:00 98.0 88 16 183/110 (134) 100 10/28/17 04:00 98.3 88 18 155/95 (115) 99 10/28/17 00:00 98.7 90 18 168/102 (124) 100 10/27/17 20:00 97.8 87 18 157/98 (117) 100 10/27/17 17:36 97.4 81 18 160/96 (117) 99 10/27/17 12:00 97.5 86 18 136/81 (99) 100 I/O 10/27/17 10/27/17 10/27/17 10/28/17 10/28/17 10/28/17 07:00 15:00 23:00 07:00 15:00 23:00 Intake Total 240 ml Output Total 200 ml 3200 ml Balance -200 ml -2960 ml Intake Oral 240 ml Output Urine Total 200 ml 200 ml Hemodialysis 3000 ml # Voids 1 Result Diagram: 10/24/17 0554 10/24/17 0554 Imaging Last Impressions Central Venous Line 10/19/17 0000 Signed Impressions: Service Date/Time: Thursday, October 19, 2017 00:00 - CONCLUSION: Uncomplicated catheter removal. Darshan Aguilar MD Catheter Placement X-Ray 10/19/17 0000 Signed Impressions: Service Date/Time: Thursday, October 19, 2017 09:01 - CONCLUSION: Uncomplicated PermaCath placement as above. Darshan Aguilar MD Abdomen Ultrasound 10/14/17 0000 Signed Impressions: Service Date/Time: September 07:47 - CONCLUSION: 1. Echogenic kidneys suggesting medical renal disease. 2. Possible 2 cm solid mass in the midpole of the left kidney. Recommend MRI abdomen for further evaluation. 3. Small left pleural effusion. Nehemias Costa MD Chest X-Ray 10/11/17 1634 Signed Impressions: Service Date/Time: Wednesday, October 11, 2017 17:01 - CONCLUSION: Cardiomegaly with moderate fluid overload. Kevan Lenz MD FACR Objective Remarks GENERAL: This is a well-nourished, well-developed patient CARDIOVASCULAR: Regular rate and regular rhythm without murmurs RESPIRATORY: Clear to auscultation. Breath sounds equal bilaterally. No wheezes GASTROINTESTINAL: Abdomen soft, non-tender, nondistended. Normal, active bowel sounds MUSCULOSKELETAL: Extremities without edema. NEURO: Alert & Oriented. Moves all ext x4 Procedures 10/15 EGD with biopsy SIDNEY KIRAN Signed EXAM DATE/TIME: 10/19/2017 09:01 [facility] COMPARISON: No previous studies available for comparison. INDICATIONS : Patient presents with endstage renal disease in need of non tunneled catheter removal for tunneled catheter placement for dailysis. MEDICAL HISTORY : Insulin-dependent diabetes mellitus End-stage renal disease on dialysis Hypertension SURGICAL HISTORY : Renal biopsy ENCOUNTER: Initial ACUITY: 1 week PAIN SCORE: 0/10 LOCATION: N/A FLUORO TIME: 1.1 minutes IMAGE SERIES: 0 SEDATION TIME: 30 minutes ACCESS: Right internal jugular vein SEDATION: 1.) 1.5 mg midazolam (Versed) IV 2.) 75 mcg fentanyl (Sublimaze) IV Prophylactic antibiotics were administered with appropriate pre-procedure timing. Vancomycin within 2 hours of procedure, Ancef (or alternative) within 1 hour of procedure. DEVICE: 1. 15 Indonesian dual lumen 19 cm Lan II Plus catheter PROCEDURE : 1. Ultrasound-guided venipuncture. 2. PermaCath placement. 3. Conscious sedation with continuous EKG and oximetry monitoring. The risks, benefits and alternatives to the procedure were explained and verbal and written consent was obtained. The site was prepped in sterile fashion. Full sterile technique was used, including cap, mask, sterile gloves and gown and a large sterile sheet. Hand hygiene and 2% chlorhexidine and/or betadine/ alcohol prep was utilized per protocol for cutaneous antisepsis. Sterile gel and sterile probe cover were utilized for ultrasound guidance. The skin and subcutaneous tissues were infiltrated with local anesthetic solution. With ultrasound and fluoroscopic guidance a dermatotomy was created over the prescribed vein. A micropuncture set was used to access the targeted vein and serial dilatation was performed to accept the prescribed length catheter. A subcutaneous tunnel was created in a retrograde fashion the catheter was pulled through the tunnel. The catheter was flushed and assembled and locked with heparin. The catheter was sutured in place. Conscious sedation was performed with the prescribed dosages and duration as above in the presence of an independent trained radiology nurse to assist in the monitoring of the patient. EKG and oximetry remained stable throughout the procedure. The patient tolerated the procedure well and there were no complications. The patient was sent to post anesthesia recovery in stable condition. CONCLUSION: Uncomplicated PermaCath placement as above. Darshan Aguilar MD on October 19, 2017 at 9:38 A/P Problem List: (1) Acute renal failure ICD Code: N17.9 - Acute kidney failure, unspecified Status: Acute (2) ESRD (end stage renal disease) on dialysis ICD Code: N18.6 - End stage renal disease; Z99.2 - Dependence on renal dialysis (3) Hypertension ICD Code: I10 - Essential (primary) hypertension (4) IDDM (insulin dependent diabetes mellitus) ICD Code: E11.9 - Type 2 diabetes mellitus without complications; Z79.4 - [facility] (current) use of insulin Assessment and Plan ESRD with Dialysis Dialysis on [facility] nephrology following. Hypertension- elevated this morning. Per EMR documentation, pt has refused all of his BP meds thus far. I have requested a repeat BP. Nausea/Vomiting-overall improving. Nausea related to dialysis treatments, treat PRN with zofran Gastric emptying test incomplete and unable to tolerate the procedure due to nausea and vomiting. continue Reglan Diabetes, Insulin Dependant Blood sugars labile, 70/30 NPH insulin dosing adjusted to prevent hypoglycemia increased 70/30 NPH insulin to 30 units a.m. dosing and continue 10 units p.m. Accuchecks with sliding scale insulin coverage will monitor and adjust the regimen as needed. Diabetic Renal diet Monitor blood sugars. GI Bleed- hemoglobin remained stable EGD with biopsy revealed gastritis and esophagitis, PPI recommended Appreciate GI recommendations. Anemia, acute on chronic due to GI bleeding on chronic anemia due to end-stage renal disease -hemoglobin has remained stable. generalized weakness- consulted PT. DVT Prophylaxis SCD, Hunter hose Anticoagulants held due to GI bleed Discharge Planning Discussed w CM. Pt will get HD tomorrow and if medically stable will discharge to home (back to [place] vs remaining here and assist w transitional HD here). Encourage pt to be compliant w Zunilda Diaz MD Oct 28, 2017 11:25
[2017-10-28] MEDS: DEXT 5%-NACL 0.9% 1000 ML INJ 1,000 ML IV SCH (16:55)
--- NOTE | 2017-10-28 18:08 | HHI.NPPN ---
Subjective History of Present Illness The patient is a 27 yo [facility] male with PMHx of ESRD on HD, IDDM since age 10 & hypertension who presented to this facility on 10/11 with his mother with complaints of SOB, edema, fatigue, weakness, and nausea. Is ESRD and been receiving HD [facility] and at a facility in [place]. Last outpatient tx this past . States that he moved here on Wednesday without any dialysis arrangements. Mother claims they have been trying to get him into a local unit, but without success. He was admitted at this facility this past April with ARF and accelerated hypertension. Given his severe renal impairment, he underwent a kidney biopsy that confirmed diabetic nephropathy as well as glomerulosclerosis. He was started on HD in [place] in late August/early September. Is moving here permanently with his mother and is in need of dialysis arrangements locally. Currently, the patient is weak and fatigued. He received emergent HD last night given his pulmonary edema. BP has been quite elevated. Unable to tolerate po medications and is currently on Labetalol IV for BP control. Interval History Pt states he is feeling well. HD tomorrow. (Lety Briggs) Objective Data Data 10/28/17 10/29/17 19:00 07:00 Intake Total 640 ml Balance 640 ml Intake Oral 640 ml # Voids 3 # Bowel Movements 1 Vital Signs Date Time Temp Pulse Resp B/P (MAP) Pulse Ox O2 Delivery O2 Flow Rate FiO2 10/28/17 16:00 98.9 90 18 175/102 (126) 99 10/28/17 12:00 98.7 89 18 185/108 (133) 98 10/28/17 08:00 98.0 88 16 183/110 (134) 100 10/28/17 04:00 98.3 88 18 155/95 (115) 99 10/28/17 00:00 98.7 90 18 168/102 (124) 100 10/27/17 20:00 97.8 87 18 157/98 (117) 100 (Lety Briggs) -: 10/24/17 0554 10/24/17 0554 Imaging Last Impressions Central Venous Line 10/19/17 0000 Signed Impressions: Service Date/Time: Thursday, October 19, 2017 00:00 - CONCLUSION: Uncomplicated catheter removal. Darshan Aguilar MD Catheter Placement X-Ray 10/19/17 0000 Signed Impressions: Service Date/Time: Thursday, October 19, 2017 09:01 - CONCLUSION: Uncomplicated PermaCath placement as above. Darshan Aguilar MD Abdomen Ultrasound 10/14/17 0000 Signed Impressions: Service Date/Time: September 07:47 - CONCLUSION: 1. Echogenic kidneys suggesting medical renal disease. 2. Possible 2 cm solid mass in the midpole of the left kidney. Recommend MRI abdomen for further evaluation. 3. Small left pleural effusion. Nehemias Costa MD Chest X-Ray 10/11/17 1634 Signed Impressions: Service Date/Time: Wednesday, October 11, 2017 17:01 - CONCLUSION: Cardiomegaly with moderate fluid overload. Kevan Lenz MD FACR Tubes & Lines: Vas-Cath Medication Review Current Medications Medications (Trade) Dose Ordered Sig/Ovi Route Start Time Stop Time Status Last Admin (Heparin Inj) 8,000 units UNSCH PRN IV FLUSH 10/11/17 19:15 (Heparin Inj) 1,000 units Q1H PRN IV FLUSH 10/11/17 19:15 10/22/17 15:11 (Mannitol Inj) 12.5 gm UNSCH PRN IV 10/11/17 19:15 (NS Flush) 5 ml UNSCH PRN IV FLUSH 10/11/17 19:15 (Heparin Inj) UNSCH PRN .XX 10/11/17 19:15 10/27/17 16:19 (Gentamicin Inj) 20 mg UNSCH PRN OTHER 10/11/17 19:15 10/27/17 16:19 (Zofran Inj) 4 mg UNSCH PRN IV PUSH 10/11/17 19:15 10/25/17 07:35 (Tylenol) 650 mg UNSCH PRN PO 10/11/17 19:15 (Benadryl) 25 mg UNSCH PRN PO 10/11/17 19:15 (Nitrostat Sl) 0.4 mg UNSCH PRN SL 10/11/17 19:15 (Catapres) 0.1 mg UNSCH PRN PO 10/11/17 19:15 10/18/17 03:53 (Gelfoam 12 Mm/7 Mm Top) 1 foam UNSCH PRN TOP 10/11/17 19:15 (NS Flush) 2 ml UNSCH PRN IV FLUSH 10/11/17 19:30 10/21/17 18:14 (NS Flush) 2 ml BID IV FLUSH 10/11/17 21:00 10/28/17 08:28 (Tylenol) 650 mg Q4H PRN PO 10/11/17 19:30 (Zofran Inj) 4 mg Q6H PRN IVP 10/11/17 19:30 10/28/17 08:29 (Narcan Inj) 0.4 mg UNSCH PRN IV PUSH 10/11/17 19:30 (D50w (Vial) Inj) 50 ml UNSCH PRN IV PUSH 10/11/17 19:30 10/12/17 02:09 (Glucagon Inj) 1 mg UNSCH PRN OTHER 10/11/17 19:30 (NovoLOG SUPPLEMENTAL SCALE) 1 ACHS SLIDING SCALE SQ 10/11/17 21:00 10/28/17 17:39 (Norvasc) 10 mg DAILY PO 10/12/17 09:00 10/28/17 12:37 (Folate) 0.5 mg DAILY PO 10/12/17 09:00 10/27/17 08:01 (Lasix) 60 mg DAILY@0900,1800 PO 10/11/17 20:15 Future Hold 10/11/17 20:15 Miscellaneous Information Patient in critical care unit? Ass... Q361D .XX 10/11/17 21:00 10/11/17 21:00 (Trandate Inj) 10 mg Q4H PRN IV PUSH 10/12/17 08:15 10/19/17 10:43 (Apresoline Inj) 20 mg Q4H PRN IV PUSH 10/12/17 13:15 10/17/17 13:10 (Tigan Inj) 200 mg Q6H PRN IM 10/12/17 16:45 10/15/17 08:31 (Epogen Inj) 10,000 units UNSCH PRN IV PUSH 10/13/17 14:30 10/27/17 16:19 (Phoslo) 667 mg TID PO 10/13/17 18:00 10/28/17 17:38 (Lopressor) 50 mg Q12HR PO 10/14/17 21:00 10/28/17 12:37 (Catapres-Tts 0.2 Mg Patch.7d) 1 patch Q7D T-DERMAL 10/15/17 10:00 10/22/17 08:50 Miscellaneous Information 1 Q7D T-DERMAL 10/22/17 10:00 10/22/17 08:51 Sodium Chloride 1,000 ml @ 0 mls/hr Q0M PRN OTHER 10/15/17 16:33 Sodium Chloride 1,000 ml @ 200 mls/hr Q5H PRN IV 10/15/17 16:33 Sodium Chloride 1,000 ml @ 0 mls/hr Q0M PRN OTHER 10/15/17 16:33 Albumin Human 100 ml @ 60 mls/hr UNSCH PRN IV 10/15/17 16:45 (Protonix) 40 mg DAILY PO 10/16/17 09:00 10/27/17 08:01 Dextrose/Sodium Chloride 1,000 ml @ 40 mls/hr Q24H IV 10/17/17 17:45 10/22/17 19:00 (Apresoline) 50 mg Q8H PO 10/18/17 16:00 10/28/17 17:39 (NS Flush) UNSCH PRN IV FLUSH 10/19/17 09:15 (Heparin Inj) UNSCH PRN IV FLUSH 10/19/17 09:15 (Cozaar) 25 mg DAILY PO 10/19/17 15:45 10/28/17 12:37 (Reglan Inj) 5 mg Q8H IV PUSH 10/20/17 17:00 10/28/17 17:38 (NovoLIN N INJ) 10 units DAILY@17 SQ 10/21/17 17:00 10/28/17 17:45 (NovoLIN N INJ) 30 units DAILY@08 SQ 10/26/17 08:00 10/27/17 08:02 (Lety Briggs) Physical Exam General Appearance: No Acute Distress, Comfortable (Lety Briggs) Neck Neck Exam: Neck Supple (Lety Briggs) Pulmonary Resp Exam: Clear Bilaterally, Breath Sounds Equal (Lety Briggs) Cardiology CV Exam: Regular, Normal Sinus Rhythm (Lety Briggs) Gastrointestinal/Abdomen GI Exam: Soft (Lety Briggs) Integumentary Skin Exam: Clear, Warm (Lety Briggs) Extremeties Extremities Exam: No Edema (Lety Briggs) Neurologic Neuro Exam: Awake (Lety Briggs) Psychiatric Psych Exam: Appropriate Responses (Lety Briggs) Assessment/Plan Discussed Condition With: Patient Problem List: (1) ESRD (end stage renal disease) on dialysis ICD Codes: N18.6 - End stage renal disease; Z99.2 - Dependence on renal dialysis Plan: Patient clear for discharge from this facility from a nephrology point of view to his previous provider. Patient's Vas-Cath has been replaced by a PermCath. 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 I will continue to provide inpatient nephrology coverage during this admission as consulted. Medications should be adjusted for the patient's ESRD. Avoid gadolinium. (2) Pulmonary edema ICD Codes: J81.1 - Chronic pulmonary edema Plan: Resolved (3) IDDM (insulin dependent diabetes mellitus) ICD Codes: E11.9 - Type 2 diabetes mellitus without complications; Z79.4 - jail (current) use of insulin Plan: Management as per primary team (4) Hypertension ICD Codes: I10 - Essential (primary) hypertension Plan: Improving (5) Anemia ICD Codes: D64.9 - Anemia, unspecified Status: Acute Plan: Iron supplementation as ordered. (Lety Briggs) Problem List: (1) ESRD (end stage renal disease) on dialysis ICD Codes: N18.6 - End stage renal disease; Z99.2 - Dependence on renal dialysis Plan: Patient clear for discharge from this facility from a nephrology point of view to his previous provider. Patient's Vas-Cath has been replaced by a PermCath. 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 I will continue to provide inpatient nephrology coverage during this admission as consulted. Medications should be adjusted for the patient's ESRD. Avoid gadolinium. 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 Plan The exam, history, and the medical decision-making described in the above note were completed with the assistance of the PAMaryan. I reviewed and agree with the findings presented. (Alyson Cantu MD) Lety Briggs Oct 28, 2017 18:08 Alyson Cantu MD Oct 29, 2017 15:23
[2017-10-28] MEDS: ONDANSETRON HCL 4 MG/2 ML VIAL IV PUSH PRN (20:34)
[2017-10-29] MEDS: hydrALAZINE HCL 50 MG TAB PO SCH ×4 (00:01→21:51)
[2017-10-29] MEDS: METOCLOPRAMIDE HCL 10 MG/2 ML VIAL IV PUSH SCH ×3 (00:02→19:39)
[2017-10-29 00:05] VITALS: BP 162/97; PULSE 86; RESP 18; TEMP 97.8; O2SAT 98
[2017-10-29 04:44] VITALS: BP 168/84; PULSE 84; RESP 18; TEMP 97.6; O2SAT 98
[2017-10-29 05:48] LABS: BICARBONATE 31.6 MEQ/L (21.0-32.0); CALCIUM 8.6 MG/DL (8.5-10.1); CREATININE 7.08 MG/DL (0.60-1.30); MAGNESIUM 2.3 MG/DL (1.5-2.5); PHOSPHORUS 0.7 MG/DL (2.5-4.9)
[2017-10-29 08:00] VITALS: BP 193/105; PULSE 89; RESP 17; TEMP 97.3; O2SAT 98
[2017-10-29] MEDS: CALCIUM ACETATE 667 MG CAP PO SCH ×3 (09:47→18:00)
[2017-10-29] MEDS: FOLIC ACID 1 MG TAB PO SCH (09:47)
[2017-10-29] MEDS: METOPROLOL TARTRATE 50 MG TAB PO SCH ×2 (09:47→21:51)
[2017-10-29] MEDS: PANTOPRAZOLE SOD 40 MG DELAYED RELEASE TAB PO SCH (09:47)
[2017-10-29] MEDS: LOSARTAN 25 MG TAB PO SCH (09:47)
[2017-10-29] MEDS: SODIUM CHLORIDE 0.9% FLUSH 10 ML FLUSH IV FLUSH SCH ×2 (09:48→21:50)
[2017-10-29] MEDS: INSULIN ASPART SUPPLEMENTAL SCALE SQ SCH ×4 (09:48→22:08)
[2017-10-29] MEDS: INSULIN HUMAN NPH 1,000 UNITS/10 ML VIAL SQ SCH ×2 (09:48→17:00)
[2017-10-29] MEDS: cloNIDine HCL 0.2 MG/24 HR PATCH T-DERMAL SCH (09:51)
[2017-10-29] MEDS: REMOVE OLD CATAPRES (CLONIDINE) PATCH T-DERMAL SCH (09:52)
--- NOTE | 2017-10-29 11:59 | HHI.PR ---
Subjective Remarks When I saw patient, patient was complaining of some nausea but no vomiting. Denies any headaches. When asked why he does not want to go back to [place], patient states he does not want to comment on this. I did explain to him the importance of having regular follow-up with a primary care physician and to establish with 1 when he leaves the hospital for his blood pressure control. I explained the importance of being compliant with dialysis 3 times a week and the high risk of stroke in the event that his blood pressure is not well controlled. Currently, blood pressure systolic is 200 per RN. He will be getting dialysis around noon Objective Vitals Vital Signs Date Time Temp Pulse Resp B/P (MAP) Pulse Ox O2 Delivery O2 Flow Rate FiO2 10/29/17 08:00 97.3 89 17 193/105 (134) 98 10/29/17 04:44 97.6 84 18 168/84 (112) 98 10/29/17 00:05 97.8 86 18 162/97 (118) 98 10/28/17 23:58 85 10/28/17 20:00 96.2 85 20 151/88 (109) 98 10/28/17 20:00 84 10/28/17 16:00 98.9 90 18 175/102 (126) 99 10/28/17 12:00 98.7 89 18 185/108 (133) 98 I/O 10/28/17 10/28/17 10/28/17 10/29/17 10/29/17 10/29/17 07:00 15:00 23:00 07:00 15:00 23:00 Intake Total 640 ml 680 ml Balance 640 ml 680 ml Intake Oral 640 ml 680 ml # Voids 3 3 # Bowel Movements 1 Result Diagram: 10/29/17 0401 Imaging Last Impressions Central Venous Line 10/19/17 0000 Signed Impressions: Service Date/Time: Thursday, October 19, 2017 00:00 - CONCLUSION: Uncomplicated catheter removal. Darshan Aguilar MD Catheter Placement X-Ray 10/19/17 0000 Signed Impressions: Service Date/Time: Thursday, October 19, 2017 09:01 - CONCLUSION: Uncomplicated PermaCath placement as above. Darshan Aguilar MD Abdomen Ultrasound 10/14/17 0000 Signed Impressions: Service Date/Time: September 07:47 - CONCLUSION: 1. Echogenic kidneys suggesting medical renal disease. 2. Possible 2 cm solid mass in the midpole of the left kidney. Recommend MRI abdomen for further evaluation. 3. Small left pleural effusion. Nehemias Costa MD Chest X-Ray 10/11/17 1634 Signed Impressions: Service Date/Time: Wednesday, October 11, 2017 17:01 - CONCLUSION: Cardiomegaly with moderate fluid overload. Kevan Lenz MD FACR Objective Remarks GENERAL: -[place] male, laying in bed CARDIOVASCULAR: Regular rate and regular rhythm without murmurs RESPIRATORY: Clear to auscultation. Breath sounds equal bilaterally. No wheezes GASTROINTESTINAL: Abdomen soft, non-tender, nondistended. Normal, active bowel sounds MUSCULOSKELETAL: Extremities without edema. NEURO: Alert & Oriented. Moves all ext x4 Procedures 10/15 EGD with biopsy SIDNEY KIRAN Signed EXAM DATE/TIME: 10/19/2017 09:01 [facility] COMPARISON: No previous studies available for comparison. INDICATIONS : Patient presents with endstage renal disease in need of non tunneled catheter removal for tunneled catheter placement for dailysis. MEDICAL HISTORY : Insulin-dependent diabetes mellitus End-stage renal disease on dialysis Hypertension SURGICAL HISTORY : Renal biopsy ENCOUNTER: Initial ACUITY: 1 week PAIN SCORE: 0/10 LOCATION: N/A FLUORO TIME: 1.1 minutes IMAGE SERIES: 0 SEDATION TIME: 30 minutes ACCESS: Right internal jugular vein SEDATION: 1.) 1.5 mg midazolam (Versed) IV 2.) 75 mcg fentanyl (Sublimaze) IV Prophylactic antibiotics were administered with appropriate pre-procedure timing. Vancomycin within 2 hours of procedure, Ancef (or alternative) within 1 hour of procedure. DEVICE: 1. 15 German dual lumen 19 cm Lan II Plus catheter PROCEDURE : 1. Ultrasound-guided venipuncture. 2. PermaCath placement. 3. Conscious sedation with continuous EKG and oximetry monitoring. The risks, benefits and alternatives to the procedure were explained and verbal and written consent was obtained. The site was prepped in sterile fashion. Full sterile technique was used, including cap, mask, sterile gloves and gown and a large sterile sheet. Hand hygiene and 2% chlorhexidine and/or betadine/ alcohol prep was utilized per protocol for cutaneous antisepsis. Sterile gel and sterile probe cover were utilized for ultrasound guidance. The skin and subcutaneous tissues were infiltrated with local anesthetic solution. With ultrasound and fluoroscopic guidance a dermatotomy was created over the prescribed vein. A micropuncture set was used to access the targeted vein and serial dilatation was performed to accept the prescribed length catheter. A subcutaneous tunnel was created in a retrograde fashion the catheter was pulled through the tunnel. The catheter was flushed and assembled and locked with heparin. The catheter was sutured in place. Conscious sedation was performed with the prescribed dosages and duration as above in the presence of an independent trained radiology nurse to assist in the monitoring of the patient. EKG and oximetry remained stable throughout the procedure. The patient tolerated the procedure well and there were no complications. The patient was sent to post anesthesia recovery in stable condition. CONCLUSION: Uncomplicated PermaCath placement as above. 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 I have discussed with case management, intermediate dialysis cannot be set up for patient. Administration is speaking with mom regarding option of flying him back to [place] versus her setting up outpatient dialysis for her son. Currently patient will have dialysis today around noon. Patient's blood pressure is not controlled at this time. I have adjusted his hydralazine dosing to 50 mg p.o. every 6 hours. Hypertension/hypertensive urgency Systolic blood pressure in the 200s even after taking his medications this morning. RN will be giving him as needed medication. In addition he will be having dialysis at noon. I had a long discussion with patient regarding the importance of being compliant with his dialysis and medications. Patient does not want to go back to [place] and doesn't explain why, and he was getting dialysis there. continue to adjust BP meds as needed. Nausea/Vomiting-overall improving. Nausea related to dialysis treatments, treat PRN with zofran Gastric emptying test incomplete and unable to tolerate the procedure due to nausea and vomiting. continue Reglan Diabetes, Insulin Dependant Blood sugars labile, 70/30 NPH insulin dosing adjusted to prevent hypoglycemia increased 70/30 NPH insulin to 30 units a.m. dosing and I have increased his night dose to 15 units p.m. Accuchecks with sliding scale insulin coverage will monitor and adjust the regimen as needed. Diabetic Renal diet Monitor blood sugars. GI Bleed- hemoglobin remained stable EGD with biopsy revealed gastritis and esophagitis, PPI recommended Appreciate GI recommendations. Anemia, acute on chronic due to GI bleeding on chronic anemia due to end-stage renal disease -hemoglobin has remained stable. generalized weakness- consulted PT. DVT Prophylaxis SCD, Hunter hose Anticoagulants held due to GI bleed Discharge Planning Pt's BPs are not well controlled. Pt is to go to HD this afternoon. I have adjusted his hydralazine dosage to QID and I have also increased pt's insulin at bedtime. Pt Has been extensively counseled on the importance to establish care w a PCP once discharged and also his mother will need to set up HD for pt upon discharge. Administration will be talking to her about her options but I was told that intermediate HD is not possible. Pt was offered to be flown back to [place] where he was getting treatment but pt refuses. IF BP's are better controlled in the morning, anticipate discharge then. I have placed scripts for CM to assist w Zunilda Diaz MD Oct 29, 2017 11:59
[2017-10-29 12:00] VITALS: BP 206/114; PULSE 90; RESP 17; TEMP 97.6; O2SAT 98
[2017-10-29] MEDS: ONDANSETRON HCL 4 MG/2 ML VIAL IVP PRN (12:09)
[2017-10-29] MEDS ORDERED: FURO40TA PO (13:35)
[2017-10-29] MEDS ORDERED: FOLI400T PO (13:35)
[2017-10-29] MEDS ORDERED: CLON.2T T-DERMAL (13:35)
[2017-10-29] MEDS ORDERED: HYDR-3800 PO (13:35)
[2017-10-29] MEDS ORDERED: METO-309 PO (13:35)
[2017-10-29] MEDS ORDERED: AMLO10TA2 PO (13:35)
[2017-10-29] MEDS ORDERED: PANT40TA3 PO (13:35)
[2017-10-29] MEDS ORDERED: CALC667C PO (13:35)
[2017-10-29] MEDS ORDERED: COZA25TA PO (13:35)
[2017-10-29] MEDS ORDERED: NOVO7030P2 SQ (13:35)
[2017-10-29 20:00] VITALS: BP 167/97; PULSE 89; RESP 20; TEMP 96.6; O2SAT 100
[2017-10-30] VITALS (8 sets, daily range): BP systolic 124–172; BP diastolic 84–104; PULSE 80–96; RESP 16–18; TEMP 96.9–99.2; O2SAT 97–100
[2017-10-30] MEDS: cloNIDine HCL 0.1 MG TAB PO PRN (00:22)
[2017-10-30] MEDS: METOCLOPRAMIDE HCL 10 MG/2 ML VIAL IV PUSH SCH ×3 (00:22→16:31)
[2017-10-30] MEDS: hydrALAZINE HCL 50 MG TAB PO SCH ×4 (03:33→22:07)
[2017-10-30] MEDS: ONDANSETRON HCL 4 MG/2 ML VIAL IVP PRN (07:48)
[2017-10-30] MEDS: INSULIN HUMAN NPH 1,000 UNITS/10 ML VIAL SQ SCH ×2 (07:52→16:40)
[2017-10-30] MEDS: CALCIUM ACETATE 667 MG CAP PO SCH ×3 (07:53→18:41)
[2017-10-30] MEDS: FOLIC ACID 1 MG TAB PO SCH (07:53)
[2017-10-30] MEDS: LOSARTAN 25 MG TAB PO SCH (07:53)
[2017-10-30] MEDS: PANTOPRAZOLE SOD 40 MG DELAYED RELEASE TAB PO SCH (07:53)
[2017-10-30] MEDS: METOPROLOL TARTRATE 50 MG TAB PO SCH ×2 (07:53→21:24)
[2017-10-30] MEDS: INSULIN ASPART SUPPLEMENTAL SCALE SQ SCH ×4 (07:55→21:25)
[2017-10-30] MEDS: SODIUM CHLORIDE 0.9% FLUSH 10 ML FLUSH IV FLUSH SCH ×2 (07:56→22:08)
[2017-10-30] MEDS: SODIUM CHLORIDE 0.9% FLUSH 10 ML FLUSH IV FLUSH PRN (16:31)
--- NOTE | 2017-10-30 18:14 | HHI.PR ---
Subjective Remarks I am returned to service after 10 days and patient is still on the floor. He wants to go home and has been discussing options with staff. His mom, however, is not pleased with the gaps in the plan and would like a more clear picture prior to discharge. The current plan is for him to return to the ER whenever he needs dialysis, to pay $400 siddiqui for each outpatient treatment, or for him to return to [place]. Objective Vitals Vital Signs Date Time Temp Pulse Resp B/P (MAP) Pulse Ox O2 Delivery O2 Flow Rate FiO2 10/30/17 16:00 99.2 83 17 138/84 (102) 100 10/30/17 12:00 81 10/30/17 12:00 96.9 80 17 134/84 (101) 100 10/30/17 08:00 97.2 82 16 171/104 (126) 100 10/30/17 04:57 97.7 90 18 124/94 (104) 98 10/30/17 00:00 97.5 96 17 172/102 (125) 99 10/30/17 00:00 85 10/29/17 20:00 96.6 89 20 167/97 (120) 100 I/O 10/29/17 10/29/17 10/29/17 10/30/17 10/30/17 10/30/17 07:00 15:00 23:00 07:00 15:00 23:00 Intake Total 680 ml 0 ml 780 ml Output Total 3000 ml Balance 680 ml -3000 ml 780 ml Intake Oral 680 ml 0 ml 780 ml Hemodialysis 3000 ml # Voids 3 0 1 Result Diagram: 10/29/17 0401 Objective Remarks GENERAL: Well-nourished, well-developed patient. SKIN: Warm and dry. HEAD: Normocephalic. EYES: No scleral icterus. No injection or drainage. NECK: Supple, trachea midline. No JVD or lymphadenopathy. CARDIOVASCULAR: Regular rate and rhythm without murmurs, gallops, or rubs. RESPIRATORY: Breath sounds equal bilaterally. No accessory muscle use. GASTROINTESTINAL: Abdomen soft, non-tender, nondistended. EXTREMITIES: No cyanosis, or edema. NEUROLOGICAL: Awake, alert, and oriented x 3. Non-focal. Procedures 10/15 EGD with biopsy SIDNEY KIRAN Signed EXAM DATE/TIME: 10/19/2017 09:01 [place] COMPARISON: No previous studies available for comparison. INDICATIONS : Patient presents with endstage renal disease in need of non tunneled catheter removal for tunneled catheter placement for dailysis. MEDICAL HISTORY : Insulin-dependent diabetes mellitus End-stage renal disease on dialysis Hypertension SURGICAL HISTORY : Renal biopsy ENCOUNTER: Initial ACUITY: 1 week PAIN SCORE: 0/10 LOCATION: N/A FLUORO TIME: 1.1 minutes IMAGE SERIES: 0 SEDATION TIME: 30 minutes ACCESS: Right internal jugular vein SEDATION: 1.) 1.5 mg midazolam (Versed) IV 2.) 75 mcg fentanyl (Sublimaze) IV Prophylactic antibiotics were administered with appropriate pre-procedure timing. Vancomycin within 2 hours of procedure, Ancef (or alternative) within 1 hour of procedure. DEVICE: 1. 15 Bengali dual lumen 19 cm Lan II Plus catheter PROCEDURE : 1. Ultrasound-guided venipuncture. 2. PermaCath placement. 3. Conscious sedation with continuous EKG and oximetry monitoring. The risks, benefits and alternatives to the procedure were explained and verbal and written consent was obtained. The site was prepped in sterile fashion. Full sterile technique was used, including cap, mask, sterile gloves and gown and a large sterile sheet. Hand hygiene and 2% chlorhexidine and/or betadine/ alcohol prep was utilized per protocol for cutaneous antisepsis. Sterile gel and sterile probe cover were utilized for ultrasound guidance. The skin and subcutaneous tissues were infiltrated with local anesthetic solution. With ultrasound and fluoroscopic guidance a dermatotomy was created over the prescribed vein. A micropuncture set was used to access the targeted vein and serial dilatation was performed to accept the prescribed length catheter. A subcutaneous tunnel was created in a retrograde fashion the catheter was pulled through the tunnel. The catheter was flushed and assembled and locked with heparin. The catheter was sutured in place. Conscious sedation was performed with the prescribed dosages and duration as above in the presence of an independent trained radiology nurse to assist in the monitoring of the patient. EKG and oximetry remained stable throughout the procedure. The patient tolerated the procedure well and there were no complications. The patient was sent to post anesthesia recovery in stable condition. CONCLUSION: Uncomplicated PermaCath placement as above. Darshan Aguilar MD on October 19, 2017 at 9:38 A/P Problem List: (1) Acute renal failure ICD Code: N17.9 - Acute kidney failure, unspecified Status: Acute (2) ESRD (end stage renal disease) on dialysis ICD Code: N18.6 - End stage renal disease; Z99.2 - Dependence on renal dialysis (3) Hypertension ICD Code: I10 - Essential (primary) hypertension (4) IDDM (insulin dependent diabetes mellitus) ICD Code: E11.9 - Type 2 diabetes mellitus without complications; Z79.4 - correction (current) use of insulin Assessment and Plan ESRD with Dialysis [facility] on [facility] nephrology following. He will need ongoing dialysis as an outpatient Hypertension/hypertensive urgency Fair control today with intermittent spikes to 171 Continue Hydralazine and PRN clonidine Nausea/Vomiting-overall improving. Nausea related to dialysis treatments, treat PRN with Augie grace Diabetes, Insulin Dependant 70/30 NPH insulin to 30 units a.m. dosing and I have increased his night dose to 15 units p.m. Labile blood sugars may have to do with his eating habits having good and bad days due to dialysis induced nausea Accuchecks with sliding scale insulin coverage Diabetic Renal diet Monitor blood sugars. GI Bleed, Stable Anemia EGD with biopsy revealed gastritis and esophagitis, PPI recommended Appreciate GI recommendations. DVT Prophylaxis SCD, Hunter hose Anticoagulants held due to GI bleed Discharge Planning There are 3 dialysis options which need further clarification prior to discharge. 1. Dialysis through the ER, PRN. But frequency has not been determined. In [place] he had dialysis twice a week, here it is 3 times a week. 2. Self-pay dialysis at $400 a treatment. Frequency will matter a lot, but cost effective frequency has not been determined. 3. Peritoneal Dialysis. Cost has not been estimated, whether it would save them or not to pursue this method instead of hemodialysis. I believe I can clarify some of these issues for them by tomorrow and when mom is comfortable with the clarity of the plan I will discharge her son to her home. Christiano Avalos MD Oct 30, 2017 18:14
[2017-10-31] VITALS (8 sets, daily range): BP systolic 134–166; BP diastolic 86–97; PULSE 60–86; RESP 18; TEMP 96.3–97.9; O2SAT 99–100
[2017-10-31] MEDS: METOCLOPRAMIDE HCL 10 MG/2 ML VIAL IV PUSH SCH ×4 (00:49→23:56)
[2017-10-31] MEDS: SODIUM CHLORIDE 0.9% FLUSH 10 ML FLUSH IV FLUSH PRN (00:49)
[2017-10-31] MEDS: hydrALAZINE HCL 50 MG TAB PO SCH ×4 (03:54→23:55)
[2017-10-31] MEDS: CALCIUM ACETATE 667 MG CAP PO SCH ×3 (07:31→18:00)
[2017-10-31] MEDS: PANTOPRAZOLE SOD 40 MG DELAYED RELEASE TAB PO SCH (07:32)
[2017-10-31] MEDS: FOLIC ACID 1 MG TAB PO SCH (07:32)
[2017-10-31] MEDS: LOSARTAN 25 MG TAB PO SCH (07:32)
[2017-10-31] MEDS: METOPROLOL TARTRATE 50 MG TAB PO SCH ×2 (07:32→20:44)
[2017-10-31] MEDS: INSULIN HUMAN NPH 1,000 UNITS/10 ML VIAL SQ SCH ×2 (07:35→17:28)
[2017-10-31] MEDS: INSULIN ASPART SUPPLEMENTAL SCALE SQ SCH ×4 (08:00→21:45)
[2017-10-31] MEDS: SODIUM CHLORIDE 0.9% FLUSH 10 ML FLUSH IV FLUSH SCH ×2 (08:14→21:46)
[2017-10-31 10:57] LABS: BICARBONATE 29.2 MEQ/L (21.0-32.0); CALCIUM 9.1 MG/DL (8.5-10.1); CREATININE 8.01 MG/DL (0.60-1.30)
--- NOTE | 2017-10-31 14:07 | HHI.PR ---
Subjective Remarks Patient has no complaints. He wants to go home, but understands that a functional plan on discharge matters a lot, and his mom prefers that the plan is clear and reliable. Objective Vitals Vital Signs Date Time Temp Pulse Resp B/P (MAP) Pulse Ox O2 Delivery O2 Flow Rate FiO2 10/31/17 12:00 77 10/31/17 12:00 96.3 81 18 146/91 (109) 100 10/31/17 12:00 60 10/31/17 08:10 79 10/31/17 08:00 97.1 81 18 159/97 (117) 99 10/31/17 04:00 97.9 86 18 134/86 (102) 99 10/31/17 00:00 97.0 84 18 146/87 (106) 99 10/30/17 23:55 83 10/30/17 20:00 97.2 87 18 152/89 (110) 97 10/30/17 19:56 83 10/30/17 16:00 99.2 83 17 138/84 (102) 100 I/O 10/30/17 10/30/17 10/30/17 10/31/17 10/31/17 10/31/17 07:00 15:00 23:00 07:00 15:00 23:00 Intake Total 780 ml 720 ml 720 ml Output Total 100 ml Balance 780 ml 720 ml 620 ml Intake Oral 780 ml 720 ml 720 ml Output Urine Total 100 ml # Voids 1 1 # Bowel Movements 2 Result Diagram: 10/31/17 1001 10/31/17 1001 Objective Remarks GENERAL: Well-nourished, well-developed patient. SKIN: Warm and dry. HEAD: Normocephalic. EYES: No scleral icterus. No injection or drainage. NECK: Supple, trachea midline. No JVD or lymphadenopathy. CARDIOVASCULAR: Regular rate and rhythm without murmurs, gallops, or rubs. RESPIRATORY: Breath sounds equal bilaterally. No accessory muscle use. GASTROINTESTINAL: Abdomen soft, non-tender, nondistended. EXTREMITIES: No cyanosis, or edema. NEUROLOGICAL: Awake, alert, and oriented x 3. Non-focal. Procedures 10/15 EGD with biopsy A/P Problem List: (1) Acute renal failure ICD Code: N17.9 - Acute kidney failure, unspecified Status: Acute (2) ESRD (end stage renal disease) on dialysis ICD Code: N18.6 - End stage renal disease; Z99.2 - Dependence on renal dialysis (3) Hypertension ICD Code: I10 - Essential (primary) hypertension (4) IDDM (insulin dependent diabetes mellitus) ICD Code: E11.9 - Type 2 diabetes mellitus without complications; Z79.4 - care home (current) use of insulin Assessment and Plan ESRD with Dialysis Dialysis on MW as an inpatient, was twice weekly in [place] He will need ongoing dialysis as an outpatient Nephrology re-consulted with question regarding candidacy for continuous ambulatory peritoneal dialysis, appreciate input Hypertension/hypertensive urgency Fair control today Continue Hydralazine and PRN clonidine Nausea/Vomiting-overall improving. Nausea related to dialysis treatments, treat PRN with Augie grace Diabetes, Insulin Dependant 70/30 NPH insulin to 30 units a.m. , 15 units in p.m. Labile blood sugars may have to do with his eating habits having good and bad days due to dialysis induced nausea Sliding scale coverage for high sugars Diabetic Renal diet GI Bleed, Stable Anemia EGD with biopsy revealed gastritis and esophagitis, PPI recommended Appreciate GI recommendations. DVT Prophylaxis DELILAH, Hunter latif, anticoagulants held due to recent GI bleed Discharge Planning I requested a visit from Dr. Cantu to evaluate patient's candidacy for "continuous ambulatory peritoneal dialysis", if this is a viable option, it may serve as a functional way for Mr. Cancino and his mother to be able to actually afford dialysis treatments ongoing. Otherwise twice weekly dialysis will cost them $3200 per month for an outpatient center, which is unaffordable, leaving the final option of bi-weekly ER visits for ongoing dialysis, which is not an ideal solution. Christiano Avalos MD Oct 31, 2017 14:07
--- NOTE | 2017-10-31 15:42 | HHI.NPPN ---
Subjective History of Present Illness The patient is a 27 yo [facility] male with PMHx of ESRD on HD, IDDM since age 10 & hypertension who presented to this facility on 10/11 with his mother with complaints of SOB, edema, fatigue, weakness, and nausea. Is ESRD and been receiving HD via [facility] on Mondays and at a facility in [place]. Last outpatient tx this past . States that he moved here on Wednesday without any dialysis arrangements. Mother claims they have been trying to get him into a local unit, but without success. He was admitted at this facility this past April with ARF and accelerated hypertension. Given his severe renal impairment, he underwent a kidney biopsy that confirmed diabetic nephropathy as well as glomerulosclerosis. He was started on HD in [place] in late August/early September. Is moving here permanently with his mother and is in need of dialysis arrangements locally. Currently, the patient is weak and fatigued. He received emergent HD last night given his pulmonary edema. BP has been quite elevated. Unable to tolerate po medications and is currently on Labetalol IV for BP control. Interval History Patient had no verbal complaints. Objective Data Data Vital Signs Date Time Temp Pulse Resp B/P (MAP) Pulse Ox O2 Delivery O2 Flow Rate FiO2 10/31/17 12:00 77 10/31/17 12:00 96.3 81 18 146/91 (109) 100 10/31/17 12:00 60 10/31/17 08:10 79 10/31/17 08:00 97.1 81 18 159/97 (117) 99 10/31/17 04:00 97.9 86 18 134/86 (102) 99 10/31/17 00:00 97.0 84 18 146/87 (106) 99 10/30/17 23:55 83 10/30/17 20:00 97.2 87 18 152/89 (110) 97 10/30/17 19:56 83 10/30/17 16:00 99.2 83 17 138/84 (102) 100 -: 10/31/17 1001 10/31/17 1001 Tubes & Lines: Vas-Cath Physical Exam General Appearance: No Acute Distress, Comfortable Neck Neck Exam: Neck Supple Pulmonary Resp Exam: Clear Bilaterally, Breath Sounds Equal Cardiology CV Exam: Regular, Normal Sinus Rhythm Gastrointestinal/Abdomen GI Exam: Soft Integumentary Skin Exam: Clear, Warm Extremeties Extremities Exam: No Edema Neurologic Neuro Exam: Awake Psychiatric Psych Exam: Appropriate Responses Assessment/Plan Discussed Condition With: Patient Problem List: (1) ESRD (end stage renal disease) on dialysis ICD Codes: N18.6 - End stage renal disease; Z99.2 - Dependence on renal dialysis Plan: Patient clear for discharge from this facility from a nephrology point of view to his previous provider. Patient's Vas-Cath has been replaced by a PermCath. The patient did have an established dialysis unit and boiler tube blower [place] to [place]. I will not be accepting the patient into my practice post discharge. If the patient wishes to remain within the [facility] on dialysis the patient will have to find an outpatient boiler tube blower to accept him as a patient and an outpatient dialysis facility to provide dialysis services to him. Discussed with showcase maker. I will continue to provide inpatient nephrology coverage during this admission as consulted. Medications should be adjusted for the patient's ESRD. Avoid gadolinium. (2) Pulmonary edema ICD Codes: J81.1 - Chronic pulmonary edema Plan: Resolved (3) IDDM (insulin dependent diabetes mellitus) ICD Codes: E11.9 - Type 2 diabetes mellitus without complications; Z79.4 - [facility] (current) use of insulin Plan: Management as per primary team (4) Hypertension ICD Codes: I10 - Essential (primary) hypertension Plan: Improving (5) Anemia ICD Codes: D64.9 - Anemia, unspecified Status: Acute Plan: Iron supplementation as ordered. Plan The exam, history, and the medical decision-making described in the above note were completed with the assistance of the REILLY. I reviewed and agree with the findings presented. Alyson Cantu MD Oct 31, 2017 15:42
[2017-10-31] MEDS: ONDANSETRON HCL 4 MG/2 ML VIAL IVP PRN (21:48)
[2017-11-01] VITALS: BP 159/89; PULSE 83; RESP 18; TEMP 97.5; O2SAT 97
[2017-11-01 00:05] VITALS: PULSE 83
[2017-11-01 04:00] VITALS: BP 153/86; PULSE 86; RESP 16; TEMP 98.2; O2SAT 97
[2017-11-01] MEDS: hydrALAZINE HCL 50 MG TAB PO SCH ×3 (04:08→15:44)
[2017-11-01] MEDS: INSULIN HUMAN NPH 1,000 UNITS/10 ML VIAL SQ SCH ×2 (07:59→16:42)
[2017-11-01 08:00] VITALS: BP 154/96; PULSE 85; RESP 16; TEMP 97.5; O2SAT 100
[2017-11-01] MEDS: FOLIC ACID 1 MG TAB PO SCH (08:00)
[2017-11-01] MEDS: LOSARTAN 25 MG TAB PO SCH (08:00)
[2017-11-01] MEDS: CALCIUM ACETATE 667 MG CAP PO SCH ×3 (08:00→16:45)
[2017-11-01] MEDS: PANTOPRAZOLE SOD 40 MG DELAYED RELEASE TAB PO SCH (08:00)
[2017-11-01] MEDS: METOPROLOL TARTRATE 50 MG TAB PO SCH (08:01)
[2017-11-01] MEDS: METOCLOPRAMIDE HCL 10 MG/2 ML VIAL IV PUSH SCH ×2 (08:02→16:43)
[2017-11-01] MEDS: SODIUM CHLORIDE 0.9% FLUSH 10 ML FLUSH IV FLUSH SCH (08:03)
[2017-11-01] MEDS: INSULIN ASPART SUPPLEMENTAL SCALE SQ SCH ×3 (08:07→16:43)
--- NOTE | 2017-11-01 10:49 | HHI.NPPN ---
Subjective History of Present Illness The patient is a 27 yo [facility] male with PMHx of ESRD on HD, IDDM since age 10 & hypertension who presented to this facility on 10/11 with his mother with complaints of SOB, edema, fatigue, weakness, and nausea. Is ESRD and been receiving HD via [facility] Mond[facility] and at a facility in [place]. Last outpatient tx this past . States that he moved here on Wednesday without any dialysis arrangements. Mother claims they have been trying to get him into a local unit, but without success. He was admitted at this facility this past April with ARF and accelerated hypertension. Given his severe renal impairment, he underwent a kidney biopsy that confirmed diabetic nephropathy as well as glomerulosclerosis. He was started on HD in [place] in late August/early September. Is moving here permanently with his mother and is in need of dialysis arrangements locally. Currently, the patient is weak and fatigued. He received emergent HD last night given his pulmonary edema. BP has been quite elevated. Unable to tolerate po medications and is currently on Labetalol IV for BP control. Objective Data Data Vital Signs Date Time Temp Pulse Resp B/P (MAP) Pulse Ox O2 Delivery O2 Flow Rate FiO2 11/01/17 08:00 97.5 85 16 154/96 (115) 100 11/01/17 04:00 98.2 86 16 153/86 (108) 97 11/01/17 00:05 83 11/01/17 00:00 97.5 83 18 159/89 (112) 97 10/31/17 20:26 81 10/31/17 20:00 96.3 81 18 166/95 (118) 99 10/31/17 16:00 97.4 84 18 143/90 (107) 99 10/31/17 12:00 77 10/31/17 12:00 96.3 81 18 146/91 (109) 100 10/31/17 12:00 60 -: 10/31/17 1001 10/31/17 1001 Tubes & Lines: Vas-Cath Physical Exam General Appearance: No Acute Distress, Comfortable Neck Neck Exam: Neck Supple Pulmonary Resp Exam: Clear Bilaterally, Breath Sounds Equal Cardiology CV Exam: Regular, Normal Sinus Rhythm Gastrointestinal/Abdomen GI Exam: Soft Integumentary Skin Exam: Clear, Warm Extremeties Extremities Exam: No Edema Neurologic Neuro Exam: Awake Psychiatric Psych Exam: Appropriate Responses Assessment/Plan Discussed Condition With: Patient Problem List: (1) ESRD (end stage renal disease) on dialysis ICD Codes: N18.6 - End stage renal disease; Z99.2 - Dependence on renal dialysis Plan: Patient clear for discharge from this facility from a nephrology point of view to his previous provider. Patient's Vas-Cath has been replaced by a PermCath. The patient did have an established dialysis unit and physician practice coordinator prior to this admission [place]. I will not be accepting the patient into my practice post discharge. If the patient wishes to remain within the [place] on dialysis the patient will have to find an outpatient physician practice coordinator to accept him as a patient and an outpatient dialysis facility to provide dialysis services to him. Discussed with counter caser. I will continue to provide inpatient nephrology coverage during this admission as consulted. Medications should be adjusted for the patient's ESRD. Avoid gadolinium. (2) Pulmonary edema ICD Codes: J81.1 - Chronic pulmonary edema Plan: Resolved (3) IDDM (insulin dependent diabetes mellitus) ICD Codes: E11.9 - Type 2 diabetes mellitus without complications; Z79.4 - nursing home (current) use of insulin Plan: Management as per primary team (4) Hypertension ICD Codes: I10 - Essential (primary) hypertension Plan: Improving (5) Anemia ICD Codes: D64.9 - Anemia, unspecified Status: Acute Plan: Iron supplementation as ordered. Plan The exam, history, and the medical decision-making described in the above note were completed with the assistance of the REILLY. I reviewed and agree with the findings presented. Alyson Cantu MD Nov 01, 2017 10:49
[2017-11-01 16:00] VITALS: BP_SYST 122; BP_SYST 174; BP_DIAS 64; BP_DIAS 97; PULSE 57; PULSE 86; PULSE 87; RESP 16; RESP 18; TEMP 97.7; TEMP 97.9; O2SAT 93; O2SAT 98
[2017-11-01] MEDS ORDERED: CLON.1 PO (18:21)
--- NOTE | 2017-11-01 18:37 | HHI.DS ---
Discharge Summary Admission Date Oct 11, 2017 at 19:19 Discharge Date: Nov 01, 2017 Admitting Diagnosis Pulmonary edema. ESRD on dialysis. Uncontrolled hypertension (1) Acute renal failure ICD Code: N17.9 - Acute kidney failure, unspecified Status: Acute (2) ESRD (end stage renal disease) on dialysis ICD Code: N18.6 - End stage renal disease; Z99.2 - Dependence on renal dialysis (3) Hypertension ICD Code: I10 - Essential (primary) hypertension (4) IDDM (insulin dependent diabetes mellitus) ICD Code: E11.9 - Type 2 diabetes mellitus without complications; Z79.4 - exterminator termite (current) use of insulin Procedures 10/15 EGD with biopsy Brief History - From Admission 27-year-old male with end-stage renal disease on dialysis secondary to complications from diabetes mellitus and hypertension presents to the emergency department complaining of shortness of breath and lower extremity swelling. The patient is normally dialyzed on Mondays and . He is from [place] and just moved here on Wednesday. The patient reports that he has been feeling fatigued and nauseated. He denies fever/chills. Vital signs: Temperature 97.7 , pulse 119, respirations 20, BP 202/119, pulse ox 95% on room air. CBC/BMP: 10/31/17 1001 10/31/17 1001 Significant Findings Laboratory Tests Test 10/31/17 10:01 Hemoglobin 8.9 GM/DL (13.0-17.0) Blood Urea Nitrogen 60 MG/DL (7-18) Creatinine 8.01 MG/DL (0.60-1.30) Sodium Level 135 MEQ/L (136-145) Chloride Level 97 MEQ/L (98-107) Estimat Glomerular Filtration Rate 10 ML/MIN (>89) PE at Discharge GENERAL: -[place] male, laying in bed CARDIOVASCULAR: Regular rate and regular rhythm without murmurs RESPIRATORY: Clear to auscultation. Breath sounds equal bilaterally. No wheezes GASTROINTESTINAL: Abdomen soft, non-tender, nondistended. Normal, active bowel sounds MUSCULOSKELETAL: Extremities without edema. NEURO: Alert & Oriented. Moves all ext x4 Hospital Course 27M from [place] who came to the [facility] for a better life required admission for dialysis after becoming fluid overloaded shortly after arrival to [facility]. He demonstrated an overall pattern of renal recovery following dialysis 3 times weekly. Those benefits have been less significant in the past few treatments and we seem to have reached a plateau, likely his baseline renal function. Due to his lack of citizenship, he is without any payment source, unqualified for both Medicare and Medicaid. A fair deal of time was spent exploring different siddiqui options, with estimated prices provided to mom and son. It seems the care surrounding an outpatient dialysis center would cost at least $50,000 a year and though peritoneal dialysis seemed like a more affordable option, I was told by nephrology that adding in the care involved, that option would still be roughly $40,000 annually. Neither of those options are affordable to this family. He has been encouraged to fly back to [place], and even offered to have his flight expenses paid for, but for reasons that they are unwilling to share with us, the family has decided against returning to [place] for ongoing Dialysis. The final option then is to seek care through our hospital or another for dialysis treatments on an outpatient basis, coming through the ER. It is certainly not an ideal arrangement, but the family understands that cost is an issue for any business and that residing permanently at our hospital is simply an unsustainable option. So, we have reached an impasse. The family is comforted that we have done everything in our ability to try and solve the problem, but that the circumstances have left us with limited options. Dale is still producing urine, and has creatinines in the 7 range, he was receiving dialysis twice weekly in [place] and will be returning to ER or another twice weekly to request dialysis services. I've recommended that they adhere to a regular schedule as skipping treatments can only raise the risk of harm to his health. The family has strong ignacio in God that all things will work out, and they thanked me and Lexus for helping them in their time of need. He requested to be discharged tonight. Pt Condition on Discharge: Fair Discharge Disposition: Discharge Home Discharge Time: <= 30 minutes Discharge Instructions DIET: Follow Instructions for: Diabetic Diet, Low Sodium Diet Additional Diet Instructions: Avoid high potassium foods Activities you can perform: Regular-No Restrictions Christiano Avalos MD Nov 01, 2017 18:37
[2017-11-01] MEDS ORDERED: FURO40TA PO (18:45)
[2017-11-01] MEDS ORDERED: AMLO10TA2 PO (18:45)
[2017-11-01] MEDS ORDERED: CALC667C PO (18:45)
[2017-11-01] MEDS ORDERED: NOVO7030P2 SQ (18:45)
[2017-11-01] MEDS ORDERED: HYDR-3800 PO (18:45)
[2017-11-01] MEDS ORDERED: METO-309 PO (18:45)
[2017-11-01] MEDS ORDERED: COZA25TA PO (18:45)
== END 2017-11-01 20:39 | disposition home or self-care (01) | DRG 640 ==
LOC: NEPC 15:34 → NEDA 19:19 → HIMW 20:40 → N07A 10-17 16:24
PROVIDERS: ADMIT Family Medicine; ATTEND Family Medicine
PROC: 5A1D70Z Performance of Urinary Filtration, Intermittent, Less than 6 Hours Per Day (ICD-10-PCS; 2017-10-12)
PROC: 0DB78ZX Excision of Stomach, Pylorus, Via Natural or Artificial Opening Endoscopic, Diagnostic (ICD-10-PCS; 2017-10-15)
PROC: 0DB38ZX Excision of Lower Esophagus, Via Natural or Artificial Opening Endoscopic, Diagnostic (ICD-10-PCS; principal; 2017-10-15 12:49)
PROC: 02PYX3Z Removal of Infusion Device from Great Vessel, External Approach (ICD-10-PCS; 2017-10-19)
PROC: 05HM33Z Insertion of Infusion Device into Right Internal Jugular Vein, Percutaneous Approach (ICD-10-PCS; 2017-10-19)
DX: E87.79 Other fluid overload (principal); N18.6 End stage renal disease; I13.2 Hypertensive heart and chronic kidney disease with heart failure and with stage 5 chronic kidney disease, or end stage renal disease; N17.9 Acute kidney failure, unspecified; E11.21 Type 2 diabetes mellitus with diabetic nephropathy; K31.84 Gastroparesis; K92.2 Gastrointestinal hemorrhage, unspecified; E11.43 Type 2 diabetes mellitus with diabetic autonomic (poly)neuropathy; E83.39 Other disorders of phosphorus metabolism; E55.9 Vitamin D deficiency, unspecified; I50.9 Heart failure, unspecified; E11.22 Type 2 diabetes mellitus with diabetic chronic kidney disease; Z99.2 Dependence on renal dialysis; Z79.4 Long term (current) use of insulin; Z91.15 Patient's noncompliance with renal dialysis; D63.1 Anemia in chronic kidney disease; K29.70 Gastritis, unspecified, without bleeding; K20.9 Esophagitis, unspecified; I16.0 Hypertensive urgency
CPT/HCPCS: 36558; 71045; 76700; 76937; 77001; 80048; 80053; 80069; 82272; 82306; 82728; 82947; 82948; 83036; 83540; 83550; 83605; 83735; 83970; 84100; 84145; 84439; 84443; 85007; 85018; 85025; 85027; 85610; 86803; 87040; 87340; 87641; 88305; 88312; 90935; 94150; 94667; 96365; 96374; 96375; 99152; 99153; C1750; C1769; J0330; J0360; J0690; J0780; J1580; J1644; J1756; J1815; J2250; J2405; J2543; J2765; J3010; J3250; J3370; J7030; J7040; J7042; J7050; Q4081

== ENCOUNTER 2017-11-04 07:59 | Emergency (ER) | payer MEDICAID ==
[~2017-11-04] VITALS: Ht 160 cm; Wt 50.0 kg
[~2017-11-04 07:59] MED LIST changes: +AMLO10TA2 PO; +CALC667C PO; +CLON.1 PO; +COZA25TA PO; +FOLI400T PO; +FURO40TA PO; -LABE200T2 PO; -LEVEMIR SQ; +METO-309 PO; -NIFE90TA2 PO; +PANT40TA3 PO
[2017-11-04 08:01] VITALS: BP 214/113; PULSE 97; RESP 14; TEMP 97.6; O2SAT 98
--- NOTE | 2017-11-04 10:19 | PD ---
HPI Chief Complaint: Medical Clearance Time Seen by Provider: 08:34 Travel History International Travel<30 days: No Contact w/Intl Traveler<30days: No Traveled to known affect area: No History of Present Illness HPI 27-year-old male with a history of end-stage kidney disease due to diabetes and hypertension arrives with a plan to undergo dialysis. The patient has been seen and evaluated here and admitted to the hospital. He is from [place] and arrived here with the plan of undergoing dialysis and cannot afford outpatient dialysis or peritoneal dialysis. As of now there is an ongoing plan to have him come to the ER have dialysis performed and then discharge. This was confirmed with operations and will be done. The patient has no shortness of breath chest pain nausea vomiting fever chills and pains otherwise. PFSH Past Medical History Cancer: No Cardiovascular Problems: Yes Congestive Heart Failure: Yes (new per BMP) Diabetes: Yes Diminished Hearing: No Endocrine: Yes Genitourinary: Yes (ESRD, HD ) Headaches: Yes (d/t H/A) Hypertension: Yes Immune Disorder: No Musculoskeletal: No Neurologic: No Psychiatric: No Reproductive: No Respiratory: Yes Past Surgical History Other Surgery: Yes (KIDNEY BIOPSY) Social History Alcohol Use: No Tobacco Use: No Substance Use: No Allergies-Medications (Allergen,Severity, Reaction): Coded Allergies: No Known Allergies (Unverified Allergy, Unknown, 11/04/17) Reported Meds & Prescriptions Reported Meds & Active Scripts Active Calcium Acetate (Calcium Acetate (Phosphate Bin) 667 Mg Cap 667 Mg PO TID 30 Days Cozaar (Losartan Potassium) 25 Mg Tab 25 Mg PO DAILY 30 Days Lopressor (Metoprolol Tartrate) 50 Mg Tab 50 Mg PO Q12HR 30 Days Hydralazine HCl 50 Mg Tablet 50 Mg PO Q6H 30 Days Furosemide 40 Mg Tab 60 Mg PO BID 30 Days Amlodipine (Amlodipine Besylate) 10 Mg Tab 10 Mg PO DAILY 30 Days Novolin 70-30 Inj (Insulin Human Isoph/Insulin Regular) 1,000 Unit/10 Ml Vial 30 Units SQ AM 15UNITS PM 30 Days take 30 units in am and take 15 units in pm Catapres (Clonidine) 0.1 Mg Tab 0.1 Mg PO Q6HR PRN 30 Days Pantoprazole (Pantoprazole Sodium) 40 Mg Tab 40 Mg PO DAILY Folic Acid 0.4 Mg Tab 400 Mcg PO DAILY Review of Systems Except as stated in HPI: all other systems reviewed are Neg General / Constitutional: No: Fever Physical Exam Narrative GENERAL: 27-year-old male well-nourished well-developed no acute distress Vital Signs Date Time Temp Pulse Resp B/P (MAP) Pulse Ox O2 Delivery O2 Flow Rate FiO2 11/04/17 08:01 97.6 97 14 214/113 (146) 98 SKIN: Warm and dry. HEAD: Atraumatic. Normocephalic. EYES: Pupils equal and round. No scleral icterus. No injection or drainage. ENT: No nasal bleeding or discharge. Mucous membranes pink and moist. NECK: Trachea midline. No JVD. CARDIOVASCULAR: Regular rate and rhythm. Right anterior chest wall tunneled catheter is intact without evidence cellulitis but site of insertion. RESPIRATORY: No accessory muscle use. Clear to auscultation. Breath sounds equal bilaterally. GASTROINTESTINAL: Abdomen soft, non-tender, nondistended. Hepatic and splenic margins not palpable. MUSCULOSKELETAL: 2+ pitting edema to the ankles bilaterally without asymmetric erythema induration or warmth. No gross deformity otherwise. NEUROLOGICAL: Awake and alert. No obvious cranial nerve deficits. Motor grossly within normal limits. Five out of 5 muscle strength in the arms and legs. Normal speech. PSYCHIATRIC: Appropriate mood and affect; insight and judgment normal. Data Data Last Documented VS Vital Signs Date Time Temp Pulse Resp B/P (MAP) Pulse Ox O2 Delivery O2 Flow Rate FiO2 11/04/17 08:01 97.6 97 14 214/113 (146) 98 MDM Medical Decision Making Medical Screen Exam Complete: Yes Emergency Medical Condition: Yes Medical Record Reviewed: Yes Differential Diagnosis End-stage kidney disease, volume overload, hypertensive emergency Narrative Course The patient will undergo dialysis here and be discharged. We will try to expedite the time of dialysis. Case discussed with Dr. Fernandez Cantu who requests the on-call crossband layer to manage the patient. Dr. Cantu was called after the case was discussed with Dr. Elise. Dr. Elise was advised of Dr. Cantu's request. Dr. Elise evaluated patient and will place dialysis order. The patient is hypertensive and edematous however the treatment will be dialysis. It appears the patient will have no ongoing crossband layer given inability to attend outpatient appointments and lack of means to establish follow-up. The patient and the mother understand that emergency department dialysis is not a viable plan for short or long-term and that alternative avenues will have to be pursued. Diagnosis Primary Impression: ESRD (end stage renal disease) on dialysis Med/Other Pt SpecificInfo: No Change to Meds Disposition: 01 DISCHARGE HOME Condition: Stable Naveen Loyd MD Nov 04, 2017 10:19
[2017-11-04] MEDS ORDERED: SODIUM CHLOR 0.9% 1000 ML INJ 1,000 ML IV PRN (11:36)
[2017-11-04] MEDS ORDERED: SODIUM CHLOR 0.9% 1000 ML INJ 1,000 ML OTHER PRN ×2 (11:36)
[2017-11-04] MEDS ORDERED: HEPARIN SODIUM - IV 10,000 UNITS/10 ML VIAL IV FLUSH PRN (11:45)
[2017-11-04] MEDS ORDERED: SODIUM CHLORIDE 0.9% FLUSH 10 ML FLUSH IV FLUSH PRN (11:45)
[2017-11-04] MEDS ORDERED: cloNIDine HCL 0.1 MG TAB PO PRN (11:45)
[2017-11-04] MEDS ORDERED: MANNITOL 12.5 GM/50 ML VIAL IV PRN (11:45)
[2017-11-04] MEDS ORDERED: GELATIN 12 MM/7 MM FOAM TOP PRN (11:45)
[2017-11-04] MEDS ORDERED: ACETAMINOPHEN 325 MG TAB PO PRN (11:45)
[2017-11-04] MEDS ORDERED: ONDANSETRON HCL 4 MG/2 ML VIAL IV PUSH PRN (11:45)
[2017-11-04] MEDS ORDERED: GENTAMICIN SULFATE 20 MG/2 ML VIAL OTHER PRN (11:45)
[2017-11-04] MEDS ORDERED: HEPARIN SODIUM - IV 10,000 UNITS/10 ML VIAL PRN (11:45)
[2017-11-04] MEDS ORDERED: EPOETIN ALFA 10,000 UNITS/ML VIAL IV PUSH PRN (11:45)
[2017-11-04] MEDS ORDERED: ALBUMIN 25% INJ 100 ML IV PRN (11:45)
[2017-11-04] MEDS ORDERED: diphenhydrAMINE HCL 25 MG CAP PO PRN (11:45)
[2017-11-04] MEDS ORDERED: NITROGLYCERIN 0.4 MG SL 25 TABS/BTL SL PRN (11:45)
[2017-11-04 11:48] VITALS: O2SAT 98
[2017-11-04 12:17] VITALS: BP 198/104; PULSE 82; RESP 14; O2SAT 96
--- NOTE | 2017-11-04 12:29 | MB ---
cc: TRIP REDDING MD DATE OF CONSULTATION 11/04/2017 REASON FOR CONSULTATION End-stage renal disease on hemodialysis for management. HISTORY OF PRESENT ILLNESS This is a 27-year-old male known to me from his previous admission when he was admitted in March of last year with a past medical history of hypertension which has not been well-controlled, end-stage renal disease mainly because of hypertensive and interstitial disease, and chronic anemia. He came to the hospital because he needs to have dialysis. The patient was discharged recently. He lives in [place] and his mother lives here and he came to visit her mother. The last time when I saw him he was admitted in March, I did a kidney biopsy and the kidney biopsy showed that he has glomerulosclerosis and interstitial fibrosis. At that time, his creatinine was stable in the range of 5.826 so he was discharged and he was told to go back to [place] and he will need dialysis and then he was admitted last month and he was seen by Dr. Cantu and he stayed in the hospital for almost three weeks and now getting the dialysis through the [facility]. The patient does not have an AV fistula and he denies any plan to go back to [place]. He wants to live with his mother here and unfortunately he does not have any way of getting the dialysis, so he came to the ER he has mild shortness of breath. He has generalized weakness. There is no history of nausea or vomiting. PAST MEDICAL HISTORY 1. Hypertension 2. Chronic anemia 3. End-stage renal disease on hemodialysis. PAST SURGICAL HISTORY 1. History of Perma-Cath placement. 2. Endoscopy REVIEW OF SYSTEMS The patient has generalized weakness, feeling tired. He has no history of fever. Occasional nausea and sometime headache. No chest pain. No palpitation. No abdominal pain. No vomiting. SOCIAL HISTORY The patient is single and lives with his mother. 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 There is no history of smoking or alcoholism. FAMILY HISTORY Noncontributory ALLERGIES He has NO KNOWN DRUG ALLERGIES. MEDICATIONS Currently he is on: 1. PhosLo 667 mg t.i.d. 2. Cozaar 25 mg daily 3. Lopressor 50 mg q.12 h. 4. Hydralazine 50 mg q. 6-hour 5. Furosemide 40 mg b.i.d. 6. Amlodipine 10 mg daily 7. NovoLog Insulin 70/30 8. Catapres 0.1 mg q. 6-hour p.r.n. 9. Protonix 40 mg daily 10. Folic acid 0.4 mg daily PHYSICAL EXAM On examination, the patient is awake and alert. He is not in acute distress. VITAL SIGNS: His last blood pressure is 214/113, temperature 97.6, oxygen saturation 98%. HEAD, EYES, EARS, NOSE, AND THROAT: Pupils are mid constricted. Nonicteric sclerae. Conjunctivae pale. NECK: Supple. JVD is not elevated. LUNGS: The patient has bilateral good air entry with occasional wheezing. HEART: S1 and S2 regular rhythm. ABDOMEN: Soft and lax. There is no tenderness. Bowel sounds positive. EXTREMITIES: He has mild edema in the legs. INVESTIGATION WBC count was 11.1 during last admission now the hemoglobin is 8.9, it was 8.2 before. He does not have any recent BMP. The last one on October 31 showed that his BUN was 16, creatinine was 8.0. There is no recent imaging study done. ASSESSMENT/PLAN 1. End-stage renal disease on hemodialysis with some uremia. 2. Hypertension 3. Anemia with history of GI bleeding 4. Noncompliance The patient has uncontrolled blood pressure and is contributing partly by compliance issue with his medication and his dialysis, now he is coming here to get the dialysis done. I already informed the dialysis unit and will gave him one treatment here and I discussed with the patient about any possibility of going back to [place], but he is refusing. He wants to stay here with his mother. If he is stable after dialysis, then he can be discharged. Thank you for the consultation. MD OXANA Mata/RON /11:30 AM /12:12 PM
== END 2017-11-04 17:19 | disposition home or self-care (01) ==
LOC: NEPE 07:59 → NEDAMB 17:19
DX: I12.0 Hypertensive chronic kidney disease with stage 5 chronic kidney disease or end stage renal disease (principal); E11.22 Type 2 diabetes mellitus with diabetic chronic kidney disease; D63.1 Anemia in chronic kidney disease; N18.6 End stage renal disease; Z99.2 Dependence on renal dialysis; Z79.4 Long term (current) use of insulin
CPT/HCPCS: 90935; 96374; 96375; 99282; J1580; J1644; J2405; Q4081; G0257

== ENCOUNTER 2017-11-08 06:19 | Inpatient (IN) | payer SELFPAY ==
[~2017-11-08] VITALS: Ht 160 cm; Wt 56.4 kg
[2017-11-08] VITALS (14 sets, daily range): BP systolic 182–249; BP diastolic 100–136; PULSE 95–124; RESP 14–20; TEMP 96.6–98.4; O2SAT 90–98
[2017-11-08] MEDS ORDERED: cloNIDine HCL 0.2 MG TAB PO ONE (06:45)
[2017-11-08] MEDS ORDERED: ONDANSETRON HCL 4 MG/2 ML VIAL IV ONE (06:45)
--- NOTE | 2017-11-08 06:53 | RADRPT ---
EXAM DATE/TIME: 11/08/2017 06:41 [facility] COMPARISON: CHEST SINGLE AP, October 11, 2017, 17:01. INDICATIONS : Shortness of breath. MEDICAL HISTORY : Hypertension. Renal failure, chronic. Diabetes SURGICAL HISTORY : None. ENCOUNTER: Initial ACUITY: 1 day PAIN SCORE: 0/10 LOCATION: Bilateral chest FINDINGS: A single AP portable erect view of the chest was obtained and demonstrates a right double-lumen centr al venous catheter in place. Mild hazy perihilar and bibasilar opacities are present with no consolid ation. This is improved from the prior study. The heart size remains at the upper limits of normal. T he bony thorax is intact. CONCLUSION: Mild hazy perihilar and bibasilar opacities with no consolidation. This could represe nt mild fluid overload. Danny Leyva MD on November 08, 2017 at 6:50 Board Certified Radiologist. This report was verified electronically.
[2017-11-08 07:09] LABS: AUTOMATED NEUTROPHIL # 11.4 TH/MM3 (1.8-7.7); BASOPHIL # 0.2 TH/MM3 (0-0.2); BASOPHIL % 1.2 % (0.0-2.0); EOSINOPHIL # 0.2 TH/MM3 (0-0.4); EOSINOPHIL % 1.2 % (0.0-4.0); HEMATOCRIT 29.9 % (39.0-51.0); HEMOGLOBIN 9.7 GM/DL (13.0-17.0); LYMPH % 11.5 % (9.0-44.0); LYMPHOCYTE # 1.6 TH/MM3 (1.0-4.8); MEAN CELL VOLUME 82.2 FL (80.0-100.0); MEAN CORPUSCULAR HEMOGLOBIN 26.7 PG (27.0-34.0); MEAN CORPUSCULAR HGB CONC 32.5 % (32.0-36.0); MEAN PLATELET VOLUME 9.1 FL (7.0-11.0); MONO % 4.7 % (0.0-8.0); MONOCYTE # 0.7 TH/MM3 (0-0.9); NEUT % 81.4 % (16.0-70.0); PLATELET COUNT 427 TH/MM3 (150-450); RED BLOOD COUNT 3.63 MIL/MM3 (4.50-5.90); RED CELL DISTRIBUTION WIDTH 15.7 % (11.6-17.2); WHITE BLOOD COUNT 14.1 TH/MM3 (4.0-11.0)
--- NOTE | 2017-11-08 07:12 | PD ---
HPI Chief Complaint: GI Complaint Time Seen by Provider: 06:26 Travel History International Travel<30 days: No Contact w/Intl Traveler<30days: No Traveled to known affect area: No History of Present Illness HPI The patient is a 27 year old male who presents to [facility] emergency department with a history of shortness of breath that he reports is been present since yesterday and has been associated with nausea and vomiting 4. The patient has a prior history of end-stage kidney disease related to glomerulosclerosis and interstitial fibrosis. The patient recently arrived from [place]. According to the record the patient does not plan on returning back to [place]. The patient reports that he was last dialyzed on . He does not have a local denture technician or primary care physician. He does report having blood pressure medication. He reports that he last took his amlodipine, Cozaar, and metoprolol yesterday morning. He last took hydralazine this morning. He is on a clonidine 0.2 patch, however he does not currently have it on. The patient's family reports that they forgot to place it back on him when they remove the last one 2 days ago. He denies having any chest pain, chest pressure. He reports having a mild bitemporal headache. He denies having any diarrhea. He last moved his bowels within the last 24 hours. He denies having any vision changes, one-sided weakness, difficulty with word finding ability, facial droop, or numbness or tingling to his extremities. Otherwise on review of systems, he denies having any recent fevers,neck pain, or abdominal pain. The patient continues to produce a small amount of urine. [facility] Past Medical History Narrative Medical The patient's past medical history is significant for chronic renal failure on dialysis, history of diabetes mellitus, hypertension. Cancer: No Cardiovascular Problems: Yes Congestive Heart Failure: Yes Diabetes: Yes Patient Takes Glucophage: No Dialysis: Yes Diminished Hearing: No Endocrine: Yes Genitourinary: Yes (ESRD, HD ) Headaches: Yes Hypertension: Yes Immune Disorder: No Musculoskeletal: No Neurologic: No Psychiatric: No Reproductive: No Respiratory: Yes Renal Failure: Yes Past Surgical History Narrative Surgical The patient's past surgical history is significant for permanent cath placement in the right side of his chest. The patient has a history of kidney biopsy. Other Surgery: Yes (KIDNEY BIOPSY) Social History Alcohol Use: No Tobacco Use: No Substance Use: No Allergies-Medications (Allergen,Severity, Reaction): Coded Allergies: No Known Allergies (Unverified Allergy, Unknown, 11/08/17) Reported Meds & Prescriptions Reported Meds & Active Scripts Active Calcium Acetate (Calcium Acetate (Phosphate Bin) 667 Mg Cap 667 Mg PO TID 30 Days Cozaar (Losartan Potassium) 25 Mg Tab 25 Mg PO DAILY 30 Days Lopressor (Metoprolol Tartrate) 50 Mg Tab 50 Mg PO Q12HR 30 Days Hydralazine HCl 50 Mg Tablet 50 Mg PO Q6H 30 Days Furosemide 40 Mg Tab 60 Mg PO BID 30 Days Amlodipine (Amlodipine Besylate) 10 Mg Tab 10 Mg PO DAILY 30 Days Novolin 70-30 Inj (Insulin Human Isoph/Insulin Regular) 1,000 Unit/10 Ml Vial 30 Units SQ AM 15UNITS PM 30 Days take 30 units in am and take 15 units in pm Catapres (Clonidine) 0.1 Mg Tab 0.1 Mg PO Q6HR PRN 30 Days Pantoprazole (Pantoprazole Sodium) 40 Mg Tab 40 Mg PO DAILY Folic Acid 0.4 Mg Tab 400 Mcg PO DAILY Review of Systems Except as stated in HPI: all other systems reviewed are Neg General / Constitutional: No: Fever Eyes: No: Visual changes HENT: Positive: Headaches, No: Neck Stiffness, Neck Pain Cardiovascular: Positive: Edema, No: Chest Pain or Discomfort Respiratory: Positive: Cough, Shortness of Breath Gastrointestinal: Positive: Nausea, Vomiting, No: Abdominal Pain Genitourinary: No: Dysuria Musculoskeletal: No: Pain Skin: No Rash Neurologic: Positive: Headache, No: Weakness, Focal Abnormalities, Change in Mentation, Slurred Speech, Sensory Disturbance Psychiatric: No: Depression Endocrine: No: Polydipsia Hematologic/Lymphatic: No: Easy Bruising Physical Exam Narrative General: The patient is a well-developed well-nourished male in no acute distress. Head and Neck exam: Head is normocephalic atraumatic. Eyes: EOMI, pupils are equal round and reactive to light. Nose: Midline septum with pink mucous membranes Mouth: Dentition unremarkable. Moist mucus membranes. Posterior oropharynx is not erythematous. No tonsillar hypertrophy. Uvula midline. Airway patent. Neck: No palpable lymphadenopathy. No nuchal rigidity. No thyromegaly. Cardiovascular: Regular rate and rhythm without murmurs, gallops, or rubs. No pulse deficit to the extremities on simultaneous auscultation and palpation of his radial artery. The patient has a permacath in place in the right anterior chest that appears to be in good repair without any signs of erythema, edema, or drainage. Lungs: Decreased breath sounds at bilateral bases with crackles audible in the bases, no rhonchi, no wheezes. Abdomen: Soft, without tenderness to palpation in all 4 quadrants of the abdomen. No guarding, rebound, or rigidity. Normal bowel sounds are audible. No tenderness on palpation of McBurney's point. Negative Gale sign. Extremities: No clubbing or cyanosis. The patient has trace pedal edema bilateral lower extremities. No calf tenderness on palpation. 2+ pulses in all 4 extremities. Back: No spinous process tenderness to palpation. No costovertebral angle tenderness to palpation. Neurologic Exam: Grossly nonfocal. Skin Exam: No rash noted. Intact skin that is warm and dry. Data Data Last Documented VS Vital Signs Date Time Temp Pulse Resp B/P (MAP) Pulse Ox O2 Delivery O2 Flow Rate FiO2 11/08/17 06:28 98 Nasal Cannula 3.00 11/08/17 06:25 98.2 106 14 Orders Orders Electrocardiogram (11/08/17 06:29) Complete Blood Count With Diff (11/08/17 06:29) Basic Metabolic Panel (Bmp) (11/08/17 06:29) Chest, Single Ap (11/08/17 06:29) Iv Access Insert/Monitor (11/08/17 06:29) Ecg Monitoring (11/08/17 06:29) Oximetry (11/08/17 06:29) Ondansetron Inj (Zofran Inj) (11/08/17 06:45) Clonidine (Catapres) (11/08/17 06:45) MDM Medical Decision Making Medical Screen Exam Complete: Yes Emergency Medical Condition: Yes Medical Record Reviewed: Yes Differential Diagnosis Pulmonary edema from noncompliance with dialysis, versus flash pulmonary edema from hypertension and hypertensive emergency Narrative Course During the course of the patient's emergency department visit, the patient's history, examination, and differential diagnosis were reviewed with the patient. The patient was placed on a occupational health and safety adviser with oximetry and frequent blood pressure monitoring. The patient had IV access obtained and blood work sent for analysis. The patient's electronic medical record was reviewed on arrival. The patient according to the record has no established primary care physician or denture technician. According to the record, the patient will be coming to the emergency department for continued dialysis sessions. The patient last received hemodialysis through the emergency department on , 4 days ago. The patient was initially provided Zofran 4 mg IV, clonidine 0.2 p.o. 1. The patient's laboratory studies were reviewed and remarkable for a white count of 14.1, hemoglobin 9.7, platelets 427 with 81.4 neutrophils Radiology studies were reviewed and remarkable for the chest x-ray that shows mild hazy perihilar and by basilar opacities with no consolidation. This could represent mild fluid overload. The patient's case was checked out to the oncoming emergency physician to disposition the patient based on the conclusion of his workup. I anticipate that the patient will be dialyzed through the emergency department once his basic metabolic profile is resulted. Lauryn Moreau MD Nov 08, 2017 07:11
--- NOTE | 2017-11-08 07:14 | PD ---
Physical Exam Date Seen by Provider: Nov 08, 2017 Time Seen by Provider: 07:00 Narrative The patient signed out to me by Dr. Moreau at change of shift. Diagnoses a 27- year-old male with a history of renal failure, presents here with complaints of nausea vomiting. Patient also noted to be extremely hypertensive. Patient states he removed his clonidine patch and did not replace it. This happened 2 days ago. The patient's been given clonidine by mouth times one dose here. He' s also reported be taking his hydralazine. Patient also complaining of a mild headache. Data Data Last Documented VS Vital Signs Date Time Temp Pulse Resp B/P (MAP) Pulse Ox O2 Delivery O2 Flow Rate FiO2 11/08/17 07:28 99 224/130 (161) 11/08/17 06:28 98 Nasal Cannula 3.00 11/08/17 06:25 98.2 14 Orders Orders Electrocardiogram (11/08/17 06:29) Complete Blood Count With Diff (11/08/17 06:29) Basic Metabolic Panel (Bmp) (11/08/17 06:29) Chest, Single Ap (11/08/17 06:29) Iv Access Insert/Monitor (11/08/17 06:29) Ecg Monitoring (11/08/17 06:29) Oximetry (11/08/17 06:29) Ondansetron Inj (Zofran Inj) (11/08/17 06:45) Clonidine (Catapres) (11/08/17 06:45) Hydralazine Inj (Apresoline Inj) (11/08/17 07:30) Admit Order (Ed Use Only) (11/08/17 08:05) Labs Laboratory Tests Test 11/08/17 06:40 White Blood Count 14.1 TH/MM3 Red Blood Count 3.63 MIL/MM3 Hemoglobin 9.7 GM/DL Hematocrit 29.9 % Mean Corpuscular Volume 82.2 FL Mean Corpuscular Hemoglobin 26.7 PG Mean Corpuscular Hemoglobin Concent 32.5 % Red Cell Distribution Width 15.7 % Platelet Count 427 TH/MM3 Mean Platelet Volume 9.1 FL Neutrophils (%) (Auto) 81.4 % Lymphocytes (%) (Auto) 11.5 % Monocytes (%) (Auto) 4.7 % Eosinophils (%) (Auto) 1.2 % Basophils (%) (Auto) 1.2 % Neutrophils # (Auto) 11.4 TH/MM3 Lymphocytes # (Auto) 1.6 TH/MM3 Monocytes # (Auto) 0.7 TH/MM3 Eosinophils # (Auto) 0.2 TH/MM3 Basophils # (Auto) 0.2 TH/MM3 CBC Comment DIFF FINAL Differential Comment Blood Urea Nitrogen 104 MG/DL Creatinine 12.21 MG/DL Random Glucose 196 MG/DL Calcium Level 9.3 MG/DL Sodium Level 133 MEQ/L Potassium Level 4.5 MEQ/L Chloride Level 94 MEQ/L Carbon Dioxide Level 24.9 MEQ/L Anion Gap 14 MEQ/L Estimat Glomerular Filtration Rate 6 ML/MIN MDM Medical Record Reviewed: Yes Supervised Visit with RISHI: No Narrative Course 27-year-old male with history of renal failure, dialysis dependent, presents here with complaints of headache with nausea vomiting. Patient also needs dialysis. The patient has a complicated history in that he is reportedly scheduled to have dialysis here in the emergency department because he does not meet criteria for outpatient dialysis. The patient unfortunately has uncontrolled hypertension and has required both clonidine and hydralazine. His blood pressure is still elevated. Given this, we will place him under observation. He will be dialyzed. The [facility] to the observation placement. Diagnosis Primary Impression: Hypertensive urgency Additional Impressions: Hyperglycemia ESRD (end stage renal disease) on dialysis Anemia Pulmonary edema Admitting Information Admitting Physician Requests: Observation Fernandez Manuel MD Nov 08, 2017 07:14
[2017-11-08 07:23] LABS: BICARBONATE 24.9 MEQ/L (21.0-32.0); CALCIUM 9.3 MG/DL (8.5-10.1)
[2017-11-08 07:30] LABS: CREATININE 12.21 MG/DL (0.60-1.30)
[2017-11-08] MEDS ORDERED: hydrALAZINE HCL 20 MG/ML VIAL IV PUSH ONE (07:30)
[2017-11-08] MEDS ORDERED: LABETALOL HCL 100 MG/20 ML VIAL IV PUSH PRN (08:15)
[2017-11-08] MEDS ORDERED: LACTULOSE SYRUP 20 GM/30 ML CUP PO PRN (08:15)
[2017-11-08] MEDS ORDERED: MAGNESIUM HYDROXIDE SUSP 30 ML CUP PO PRN (08:15)
[2017-11-08] MEDS ORDERED: BISACODYL 10 MG SUPP RECTAL PRN (08:15)
[2017-11-08] MEDS ORDERED: SENNOSIDES 8.6 MG TAB PO PRN (08:15)
[2017-11-08] MEDS ORDERED: NALOXONE HCL 0.4 MG/ML AMP IV PUSH PRN (08:15)
[2017-11-08] MEDS ORDERED: GLUCAGON 1 MG/ML VIAL OTHER PRN (08:30)
[2017-11-08] MEDS ORDERED: DEXTROSE 50% IN WATER 50 ML VIAL(D50) IV PUSH PRN (08:30)
[2017-11-08] MEDS: METOPROLOL TARTRATE 50 MG TAB PO SCH ×2 (09:03→20:57)
[2017-11-08] MEDS: LOSARTAN 25 MG TAB PO SCH (09:03)
[2017-11-08] MEDS: hydrALAZINE HCL 50 MG TAB PO SCH ×3 (09:06→20:57)
[2017-11-08] MEDS: PANTOPRAZOLE SOD 40 MG DELAYED RELEASE TAB PO SCH (09:06)
[2017-11-08] MEDS ORDERED: SODIUM CHLOR 0.9% 1000 ML INJ 1,000 ML OTHER PRN ×2 (09:19)
[2017-11-08] MEDS ORDERED: SODIUM CHLOR 0.9% 1000 ML INJ 1,000 ML IV PRN (09:19)
[2017-11-08] MEDS ORDERED: ACETAMINOPHEN 325 MG TAB PO PRN (09:30)
[2017-11-08] MEDS ORDERED: NITROGLYCERIN 0.4 MG SL 25 TABS/BTL SL PRN (09:30)
[2017-11-08] MEDS ORDERED: ALBUMIN 25% INJ 100 ML IV PRN (09:30)
[2017-11-08] MEDS ORDERED: SODIUM CHLORIDE 0.9% FLUSH 10 ML FLUSH IV FLUSH PRN (09:30)
[2017-11-08] MEDS ORDERED: HEPARIN SODIUM - IV 10,000 UNITS/10 ML VIAL IV FLUSH PRN (09:30)
[2017-11-08] MEDS ORDERED: MANNITOL 12.5 GM/50 ML VIAL IV PRN (09:30)
[2017-11-08] MEDS ORDERED: ONDANSETRON HCL 4 MG/2 ML VIAL IV PUSH PRN (09:30)
[2017-11-08] MEDS ORDERED: cloNIDine HCL 0.1 MG TAB PO PRN (09:30)
[2017-11-08] MEDS ORDERED: diphenhydrAMINE HCL 25 MG CAP PO PRN (09:30)
[2017-11-08] MEDS ORDERED: GELATIN 12 MM/7 MM FOAM TOP PRN (09:30)
[2017-11-08] MEDS: CALCIUM ACETATE 667 MG CAP PO SCH ×3 (09:42→18:00)
[2017-11-08] MEDS: SODIUM CHLORIDE 0.9% FLUSH 10 ML FLUSH IV FLUSH SCH ×2 (09:42→20:57)
[2017-11-08] MEDS: ONDANSETRON HCL 4 MG/2 ML VIAL IVP PRN ×2 (09:51→21:01)
--- NOTE | 2017-11-08 09:55 | HHI.HP ---
[facility] No Primary Care Physician Admission Diagnosis hypertensive urgency, renal failure/dialysis dependent Diagnoses: Chief Complaint: N/V, SOB, need dialysis. Travel History International Travel<30 Days: No Contact w/Intl Traveler <30 Da: No Traveled to Known Affected Are: No History of Present Illness 27-year-old male with a medical history significant for end-stage renal disease on hemodialysis, resistant hypertension, type 2 diabetes with complex social history presented to the emergency room with complaint of nausea, vomiting, shortness of breath. Patient reports his last dialysis was on . Due to social issue and immigration status, he is not able to have outpatient dialysis. Apparently he is supposed to come to the emergency room on Mondays and for dialysis. He reports having a hard time taking deep breath and had 4 episodes of vomiting this morning. Workup in the emergency room revealed blood pressure is severely elevated up to 249/143. He has evidence of pulmonary edema on chest x-ray. He has been given clonidine and hydralazine without much improvement. By the time of my evaluation, his blood pressure was still too 224/114. He just received amlodipine, hydralazine, and metoprolol. He reports compliance with taking his blood pressure medications at home but admits that he took off the clonidine patch 2 days ago. Currently he denies chest pain or palpitations. Review of Systems Constitutional: DENIES: Fever, Chills Respiratory: COMPLAINS OF: Cough, Shortness of breath Cardiovascular: DENIES: Chest pain, Palpitations Gastrointestinal: COMPLAINS OF: Nausea, Vomiting Except as stated in HPI: all other systems reviewed are Neg Past Family Social History Past Medical History End-stage renal disease on hemodialysis, secondary to diabetic nephropathy and glomerulosclerosis Malignant hypertension Diabetes Past Surgical History None Reported Medications Reported Meds & Active Scripts Active Calcium Acetate (Calcium Acetate (Phosphate Bin) 667 Mg Cap 667 Mg PO TID 30 Days Cozaar (Losartan Potassium) 25 Mg Tab 25 Mg PO DAILY 30 Days Lopressor (Metoprolol Tartrate) 50 Mg Tab 50 Mg PO Q12HR 30 Days Hydralazine HCl 50 Mg Tablet 50 Mg PO Q6H 30 Days Furosemide 40 Mg Tab 60 Mg PO BID 30 Days Amlodipine (Amlodipine Besylate) 10 Mg Tab 10 Mg PO DAILY 30 Days Novolin 70-30 Inj (Insulin Human Isoph/Insulin Regular) 1,000 Unit/10 Ml Vial 30 Units SQ AM 15UNITS PM 30 Days take 30 units in am and take 15 units in pm Catapres (Clonidine) 0.1 Mg Tab 0.1 Mg PO Q6HR PRN 30 Days Pantoprazole (Pantoprazole Sodium) 40 Mg Tab 40 Mg PO DAILY Folic Acid 0.4 Mg Tab 400 Mcg PO DAILY Allergies: Coded Allergies: No Known Allergies (Unverified Allergy, Unknown, 11/08/17) Family History Reviewed on his noncontributory. Social History Patient denies tobacco, alcohol, or illicit drug use Physical Exam Vital Signs Vital Signs Date Time Temp Pulse Resp B/P (MAP) Pulse Ox O2 Delivery O2 Flow Rate FiO2 11/08/17 08:51 104 192/110 (137) 11/08/17 08:30 211/123 (152) 11/08/17 07:28 99 224/130 (161) 11/08/17 07:17 100 249/133 (171) 11/08/17 06:28 98 Nasal Cannula 3.00 11/08/17 06:25 98.2 106 14 240/136 (170) 93 11/08/17 06:24 96.6 115 20 220/120 (153) 95 Room Air Physical Exam GENERAL: This is a well-nourished, well-developed patient, in no acute distress SKIN: No rashes, ecchymoses or lesions. Cool and dry. HEAD: Atraumatic. Normocephalic. No temporal or scalp tenderness. EYES: Pupils equal round and reactive. Extraocular motions intact. No scleral icterus. No injection or drainage. ENT: Nose without bleeding, purulent drainage or septal hematoma. Throat without erythema, tonsillar hypertrophy or exudate. Uvula midline. Airway patent. NECK: Trachea midline. No JVD or lymphadenopathy. Supple, nontender, no meningeal signs. CARDIOVASCULAR: Tachycardic in the 110s. Regular rhythm without murmurs, gallops, or rubs. RESPIRATORY: Bilateral basilar crackles. Rest of the lung coronel are clear. GASTROINTESTINAL: Abdomen soft, non-tender, nondistended. No hepato-splenomegaly , or palpable masses. No guarding. MUSCULOSKELETAL: Extremities without clubbing, cyanosis, or edema. No joint tenderness, effusion, or edema noted. No calf tenderness. Negative Homans sign bilaterally. NEUROLOGICAL: Awake and alert. Cranial nerves II through XII intact. Motor and sensory grossly within normal limits. Five out of 5 muscle strength in all muscle groups. Normal speech. Laboratory Laboratory Tests Test 11/08/17 06:40 White Blood Count 14.1 Red Blood Count 3.63 Hemoglobin 9.7 Hematocrit 29.9 Mean Corpuscular Volume 82.2 Mean Corpuscular Hemoglobin 26.7 Mean Corpuscular Hemoglobin Concent 32.5 Red Cell Distribution Width 15.7 Platelet Count 427 Mean Platelet Volume 9.1 Neutrophils (%) (Auto) 81.4 Lymphocytes (%) (Auto) 11.5 Monocytes (%) (Auto) 4.7 Eosinophils (%) (Auto) 1.2 Basophils (%) (Auto) 1.2 Neutrophils # (Auto) 11.4 Lymphocytes # (Auto) 1.6 Monocytes # (Auto) 0.7 Eosinophils # (Auto) 0.2 Basophils # (Auto) 0.2 CBC Comment DIFF FINAL Differential Comment Blood Urea Nitrogen 104 Creatinine 12.21 Random Glucose 196 Calcium Level 9.3 Sodium Level 133 Potassium Level 4.5 Chloride Level 94 Carbon Dioxide Level 24.9 Anion Gap 14 Estimat Glomerular Filtration Rate 6 Result Diagram: 11/08/17 0640 11/08/17 0640 Imaging Last Impressions Chest X-Ray 11/08/17 0629 Signed Impressions: Service Date/Time: Wednesday, November 08, 2017 06:41 - CONCLUSION: Mild hazy perihilar and bibasilar opacities with no consolidation. This could represent mild fluid overload. Danny Leyva MD Caprini VTE Risk Assessment Caprini VTE Risk Assessment: No/Low Risk (score <= 1) Caprini Risk Assessment Model Point Value = 1 Point Value = 2 Point Value = 3 Point Value = 5 Age 41-60 Minor surgery BMI > 25 kg/m2 Swollen legs Varicose veins or History of unexplained or recurrent spontaneous Oral contraceptives or hormone replacement Sepsis (< 1 month) Serious lung disease, including pneumonia (< 1 month) Abnormal pulmonary function Acute myocardial infarction Congestive heart failure (< 1 month) History of inflammatory bowel disease Medical patient at bed rest Age 61-74 Arthroscopic surgery Major open surgery (> 45 min) Laparoscopic surgery (> 45 min) Malignancy Confined to bed (> 72 hours) Immobilizing plaster cast Central venous access Age >= 75 History of VTE Family history of VTE Factor V Leiden Prothrombin [id number] Lupus anticoagulant Anticardiolipin antibodies Elevated serum homocysteine Heparin-induced thrombocytopenia Other congenital or acquired thrombophilia Stroke (< 1 month) Elective arthroplasty Hip, pelvis, or leg fracture Acute spinal cord injury (< 1 month) Prophylaxis Regimen Total Risk Factor Score Risk Level Prophylaxis Regimen 0-1 Low Early ambulation 2 Moderate Order ONE of the following: *Sequential Compression Device (SCD) *Heparin 5000 units SQ BID 3-4 Higher Order ONE of the following medications: *Heparin 5000 units SQ TID *Enoxaparin/Lovenox 40 mg SQ daily (WT < 150 kg, CrCl > 30 mL/min) *Enoxaparin/Lovenox 30 mg SQ daily (WT < 150 kg, CrCl > 10-29 mL/min) *Enoxaparin/Lovenox 30 mg SQ BID (WT < 150 kg, CrCl > 30 mL/min) AND/OR *Sequential Compression Device (SCD) 5 or more Highest Order ONE of the following medications: *Heparin 5000 units SQ TID (Preferred with Epidurals) *Enoxaparin/Lovenox 40 mg SQ daily (WT < 150 kg, CrCl > 30 mL/min) *Enoxaparin/Lovenox 30 mg SQ daily (WT < 150 kg, CrCl > 10-29 mL/min) *Enoxaparin/Lovenox 30 mg SQ BID (WT < 150 kg, CrCl > 30 mL/min) AND *Sequential Compression Device (SCD) Assessment and Plan Problem List: (1) Hypertensive emergency ICD Code: I16.1 - Hypertensive emergency Status: Acute Plan: He has pulmonary edema. Chest x-ray personally reviewed. Need dialysis. Patient is reportedly on multiple antihypertensives agent at home including hydralazine, metoprolol, losartan, clonidine. He reports compliance but admitted that he took clonidine patch off a couple of days ago. - Nephrology consulted for dialysis. - Resume antihypertensive medications above. Clonidine and Labetalol PRN. He may need Cardene drip. - Strongly advised the patient regarding the need to be compliant and he was advised of the risks of sudden stroke, heart attack, or that can occur with severe HTN. (2) ESRD (end stage renal disease) on dialysis ICD Code: N18.6 - End stage renal disease; Z99.2 - Dependence on renal dialysis Plan: Nephrology consulted and planning for dialysis today. Due to social issue and immigration status, he is not able to have outpatient dialysis. Apparently he is supposed to come to the emergency room on Mondays and for dialysis. Case management consulted. (3) Pulmonary edema ICD Code: J81.1 - Chronic pulmonary edema Plan: Secondary to hypertensive emergency and end-stage renal disease in need of dialysis Dialysis plan for today as above Continue supplemental oxygen Incentive spirometry (4) Hypoxemia ICD Code: R09.02 - Hypoxemia Plan: Secondary to above. Continue supplemental oxygen. Wean off oxygen as tolerated. (5) Nausea & vomiting ICD Code: R11.2 - Nausea with vomiting, unspecified Plan: Probably due to uremia and hypertensive emergency. Symptoms have improved currently. (6) Leukocytosis ICD Code: D72.829 - Elevated white blood cell count, unspecified Plan: Probably reactive. He has been having some nasal congestion. May have a viral syndrome. No signs of a bacterial infection at this point. Monitor. (7) IDDM (insulin dependent diabetes mellitus) ICD Code: E11.9 - Type 2 diabetes mellitus without complications; Z79.4 - prison (current) use of insulin Plan: Sliding scale insulin with Accu-Cheks Discussed Condition With Dr. Manuel Physician Certification 2 Midnight Certification Type: Admission for Inpatient Services Order for Inpatient Services The services are ordered in accordance with Medicare regulations or non- Medicare payer requirements, as applicable. In the case of services not specified as inpatient-only, they are appropriately provided as inpatient services in accordance with the 2-midnight benchmark. Estimated LOS (days): 2 days is the estimated time the patient will need to remain in the hospital, assuming treatment plan goals are met and no additional complications. Post-Hospital Plan: Home Sixto Solano MD Nov 08, 2017 09:55
[2017-11-08] MEDS: cloNIDine HCL 0.1 MG TAB PO PRN ×2 (11:29→23:13)
--- NOTE | 2017-11-08 11:45 | PD.CONS ---
HPI Service Nephrology Consult Requested By Reason for Consult ESRD on HD Primary Care Physician No Primary Care Physician History of Present Illness This is a 27 y/o male on HD since August. 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 His last HD was when he came to ER and was discharged. He presents today vomiting with edema, shortness of breath. We were consulted to assist with dialysis arrangements. PMH of HTN, anemia, and IDDM, his blood pressure is markedly elevated. He is a full code, has Permcath for HD. (Keira Bar) Review of Systems Constitutional: COMPLAINS OF: Fatigue Respiratory: COMPLAINS OF: Shortness of breath Cardiovascular: DENIES: Chest pain, Lower Extremity Edema Gastrointestinal: COMPLAINS OF: Nausea, Vomiting (Keira Bar) Past Family Social History Allergies: Coded Allergies: No Known Allergies (Unverified Allergy, Unknown, 11/08/17) Past Medical History ESRD on HD since Aug 2017 IDDM since age 10 HTN Anemia Past Surgical History Renal biopsy Reported Medications Calcium Acetate (Calcium Acetate (Phosphate Bin) 667 Mg Cap 667 Mg PO TID 30 Days Cozaar (Losartan Potassium) 25 Mg Tab 25 Mg PO DAILY 30 Days Lopressor (Metoprolol Tartrate) 50 Mg Tab 50 Mg PO Q12HR 30 Days Hydralazine HCl 50 Mg Tablet 50 Mg PO Q6H 30 Days Furosemide 40 Mg Tab 60 Mg PO BID 30 Days Amlodipine (Amlodipine Besylate) 10 Mg Tab 10 Mg PO DAILY 30 Days Novolin 70-30 Inj (Insulin Human Isoph/Insulin Regular) 1,000 Unit/10 Ml Vial 30 Units SQ AM 15UNITS PM 30 Days take 30 units in am and take 15 units in pm Catapres (Clonidine) 0.1 Mg Tab 0.1 Mg PO Q6HR PRN 30 Days Pantoprazole (Pantoprazole Sodium) 40 Mg Tab 40 Mg PO DAILY Folic Acid 0.4 Mg Tab 400 Mcg PO DAILY Active Ordered Medications Last 72 hours Impressions Chest X-Ray 11/08/17 0629 Signed Impressions: Service Date/Time: Wednesday, November 08, 2017 06:41 - CONCLUSION: Mild hazy perihilar and bibasilar opacities with no consolidation. This could represent mild fluid overload. Danny Leyva MD Family History Non contributory Social History Previously lived in [place]. Attempting to relocate. Denies tobacco Denies EtOH Denies illicits (Keira Bar) Physical Exam Vital Signs Vital Signs Date Time Temp Pulse Resp B/P (MAP) Pulse Ox O2 Delivery O2 Flow Rate FiO2 11/08/17 10:29 96 182/113 (136) 11/08/17 10:20 95 182/113 (136) 11/08/17 09:53 124 214/119 (150) 11/08/17 08:51 104 192/110 (137) 11/08/17 08:30 211/123 (152) 11/08/17 07:28 99 224/130 (161) 11/08/17 07:17 100 249/133 (171) 11/08/17 06:28 98 Nasal Cannula 3.00 11/08/17 06:25 98.2 106 14 240/136 (170) 93 11/08/17 06:24 96.6 115 20 220/120 (153) 95 Room Air Physical Exam GENERAL: Laying in bed resting. Dry heaving/vomiting. Facial edema. SKIN: Warm and dry. HEAD: Atraumatic. Normocephalic. EYES: Pupils equal and round. No scleral icterus. No injection or drainage. ENT: No nasal bleeding or discharge. Mucous membranes pink and moist. NECK: Trachea midline. No JVD. RIJ VasCath present CARDIOVASCULAR: Tachycardic with regular rhythm. Permcath right chest. RESPIRATORY: No accessory muscle use. Rales present bibasilar. GASTROINTESTINAL: Abdomen soft, non-tender, nondistended. Hepatic and splenic margins not palpable. MUSCULOSKELETAL: Extremities without clubbing, cyanosis. PSYCHIATRIC: Appropriate mood and affect; insight and judgment normal. Laboratory Laboratory Tests Test 11/08/17 06:40 White Blood Count 14.1 Red Blood Count 3.63 Hemoglobin 9.7 Hematocrit 29.9 Mean Corpuscular Volume 82.2 Mean Corpuscular Hemoglobin 26.7 Mean Corpuscular Hemoglobin Concent 32.5 Red Cell Distribution Width 15.7 Platelet Count 427 Mean Platelet Volume 9.1 Neutrophils (%) (Auto) 81.4 Lymphocytes (%) (Auto) 11.5 Monocytes (%) (Auto) 4.7 Eosinophils (%) (Auto) 1.2 Basophils (%) (Auto) 1.2 Neutrophils # (Auto) 11.4 Lymphocytes # (Auto) 1.6 Monocytes # (Auto) 0.7 Eosinophils # (Auto) 0.2 Basophils # (Auto) 0.2 CBC Comment DIFF FINAL Differential Comment Blood Urea Nitrogen 104 Creatinine 12.21 Random Glucose 196 Calcium Level 9.3 Sodium Level 133 Potassium Level 4.5 Chloride Level 94 Carbon Dioxide Level 24.9 Anion Gap 14 Estimat Glomerular Filtration Rate 6 (Keira Bar) Result Diagram: 11/08/1740 11/08/17 0640 Imaging Current Medications Medications (Trade) Dose Ordered Sig/Ovi Route Start Time Stop Time Status Last Admin (Norvasc) 10 mg DAILY PO 11/08/17 09:00 11/08/17 09:03 (Phoslo) 667 mg TID PO 11/08/17 09:00 11/08/17 09:42 (Apresoline) 50 mg Q6H PO 11/08/17 09:00 11/08/17 09:06 (Cozaar) 25 mg DAILY PO 11/08/17 09:00 11/08/17 09:03 (Lopressor) 50 mg Q12HR PO 11/08/17 09:00 11/08/17 09:03 (Protonix) 40 mg DAILY PO 11/08/17 09:00 11/08/17 09:06 (NS Flush) 2 ml UNSCH PRN IV FLUSH 11/08/17 08:15 (NS Flush) 2 ml BID IV FLUSH 11/08/17 09:00 11/08/17 09:42 (Zofran Inj) 4 mg Q6H PRN IVP 11/08/17 08:15 11/08/17 09:51 (Narcan Inj) 0.4 mg UNSCH PRN IV PUSH 11/08/17 08:15 (Milk Of Magnesia Liq) 30 ml Q12H PRN PO 11/08/17 08:15 (Senokot) 17.2 mg Q12H PRN PO 11/08/17 08:15 (Dulcolax Supp) 10 mg DAILY PRN RECTAL 11/08/17 08:15 (Lactulose Liq) 30 ml DAILY PRN PO 11/08/17 08:15 (Trandate Inj) 10 mg Q4H PRN IV PUSH 11/08/17 08:15 11/08/17 10:10 (Catapres) 0.1 mg Q6H PRN PO 11/08/17 08:15 (D50w (Vial) Inj) 50 ml UNSCH PRN IV PUSH 11/08/17 08:30 (Glucagon Inj) 1 mg UNSCH PRN OTHER 11/08/17 08:30 (NovoLOG SUPPLEMENTAL SCALE) 1 ACHS SLIDING SCALE SQ 11/08/17 12:00 Sodium Chloride 1,000 ml @ 0 mls/hr Q0M PRN OTHER 11/08/17 09:19 (Heparin Inj) 8,000 units UNSCH PRN IV FLUSH 11/08/17 09:30 Sodium Chloride 1,000 ml @ 200 mls/hr Q5H PRN IV 11/08/17 09:19 Sodium Chloride 1,000 ml @ 0 mls/hr Q0M PRN OTHER 11/08/17 09:19 (Mannitol Inj) 12.5 gm UNSCH PRN IV 11/08/17 09:30 Albumin Human 100 ml @ 60 mls/hr UNSCH PRN IV 11/08/17 09:30 (NS Flush) 5 ml UNSCH PRN IV FLUSH 11/08/17 09:30 (Heparin Inj) UNSCH PRN .XX 11/08/17 09:30 (Gentamicin Inj) 20 mg UNSCH PRN OTHER 11/08/17 09:30 (Zofran Inj) 4 mg UNSCH PRN IV PUSH 11/08/17 09:30 (Tylenol) 650 mg UNSCH PRN PO 11/08/17 09:30 (Benadryl) 25 mg UNSCH PRN PO 11/08/17 09:30 (Nitrostat Sl) 0.4 mg UNSCH PRN SL 11/08/17 09:30 (Catapres) 0.1 mg UNSCH PRN PO 11/08/17 09:30 (Gelfoam 12 Mm/7 Mm Top) 1 foam UNSCH PRN TOP 11/08/17 09:30 (Keira Bar) Assessment and Plan Problem List: (1) ESRD (end stage renal disease) on dialysis ICD Codes: N18.6 - End stage renal disease; Z99.2 - Dependence on renal dialysis Plan: HD today, orders entered. Unclear if he needs additional treatment tomorrow. Repeat labs. He has Permcath for HD. Needs fluid removal today. Outpatient HD arrangements and transitional HD plans cannot be made at this time. Avoid IVF. If discharged please consult institutional aide regional economist if readmitted. (2) Nausea & vomiting ICD Codes: R11.2 - Nausea with vomiting, unspecified Plan: May be due to uremia. Monitor. (3) Anemia ICD Codes: D64.9 - Anemia, unspecified Status: Acute Plan: Check iron profile. No epogen due to blood pressure elevation. (4) Hypertensive urgency ICD Codes: I16.0 - Hypertensive urgency Status: Acute Plan: Fluid removal with HD He was given multiple medications PO and IV. Reevaluate regimen. (Keira Bar) Assessment and Plan patient was seen and examined. Agree with above assessment and plan. Patient has no insurance status, apparently has no legal status (not confirmed). Presents with uremia, fluid overload, hypertensive urgency. Dialysis was arranged. (Hieu Valera MD) Keira Bar Nov 08, 2017 11:45 Hieu Valera MD Nov 08, 2017 20:10
[2017-11-08] MEDS: INSULIN ASPART SUPPLEMENTAL SCALE SQ SCH ×3 (12:00→21:00)
[2017-11-08 13:41] LABS: % SATURATION IRON PROFILE 15.5 % (20-50); IRON (FE) 47 MCG/DL (65-175); PHOSPHORUS 2.7 MG/DL (2.5-4.9); TOTAL IRON BINDING CAPACITY 304 MCG/DL (250-450)
[2017-11-08] MEDS: HEPARIN SODIUM - IV 10,000 UNITS/10 ML VIAL PRN (18:41)
[2017-11-08] MEDS: GENTAMICIN SULFATE 20 MG/2 ML VIAL OTHER PRN (18:41)
[2017-11-08] MEDS: SODIUM CHLORIDE 0.9% FLUSH 10 ML FLUSH IV FLUSH PRN (21:02)
--- NOTE | 2017-11-08 22:53 | EKG ---
Date Performed: 11/08/2017 Time Performed: 06:56:36 PTAGE: 27 years EKG: SINUS TACHYCARDIA MARKED LEFT AXIS DEVIATION ST DEVIATION AND MODERATE T-WAVE ABNORMALITY, CONSIDER LATERAL ISCHEMIA ABNORMAL ECG INTERPRETATION BASED ON A DEFAULT AGE OF 40 YEARS PREVIOUS TRACING : 04/15/2017 20.16 DOCTOR: Gil Hampton Interpretating Date/Time 11/08/2017 22:49:17
[2017-11-09] VITALS (10 sets, daily range): BP systolic 161–225; BP diastolic 98–126; PULSE 81–96; RESP 18–20; TEMP 98.5–99.4; O2SAT 96–99
[2017-11-09] MEDS: hydrALAZINE HCL 50 MG TAB PO SCH ×4 (03:38→22:20)
[2017-11-09] MEDS: hydrALAZINE HCL 20 MG/ML VIAL IV PUSH PRN ×2 (05:01→19:56)
[2017-11-09] MEDS: ONDANSETRON HCL 4 MG/2 ML VIAL IVP PRN (05:01)
[2017-11-09] MEDS: SODIUM CHLORIDE 0.9% FLUSH 10 ML FLUSH IV FLUSH PRN ×2 (05:02→05:50)
[2017-11-09] MEDS ORDERED: INSULIN HUMAN REGULAR 1,000 UNITS/10 ML VIAL IV PUSH ONE ×3 (05:45→11:15)
[2017-11-09] MEDS: cloNIDine HCL 0.1 MG TAB PO PRN ×2 (05:55→18:17)
[2017-11-09 06:04] LABS: AUTOMATED NEUTROPHIL # 7.7 TH/MM3 (1.8-7.7); BASOPHIL # 0.1 TH/MM3 (0-0.2); BASOPHIL % 1.4 % (0.0-2.0); EOSINOPHIL # 0.1 TH/MM3 (0-0.4); EOSINOPHIL % 0.9 % (0.0-4.0); HEMOGLOBIN 10.6 GM/DL (13.0-17.0); LYMPH % 13.3 % (9.0-44.0); LYMPHOCYTE # 1.3 TH/MM3 (1.0-4.8); MEAN CELL VOLUME 82.6 FL (80.0-100.0); MEAN CORPUSCULAR HEMOGLOBIN 27.3 PG (27.0-34.0); MEAN PLATELET VOLUME 8.8 FL (7.0-11.0); MONO % 6.9 % (0.0-8.0); MONOCYTE # 0.7 TH/MM3 (0-0.9); NEUT % 77.5 % (16.0-70.0); PLATELET COUNT 412 TH/MM3 (150-450); RED BLOOD COUNT 3.87 MIL/MM3 (4.50-5.90); RED CELL DISTRIBUTION WIDTH 15.7 % (11.6-17.2); WHITE BLOOD COUNT 9.9 TH/MM3 (4.0-11.0)
[2017-11-09 06:28] LABS: BICARBONATE 27.6 MEQ/L (21.0-32.0); CALCIUM 8.9 MG/DL (8.5-10.1); CREATININE 8.07 MG/DL (0.60-1.30)
[2017-11-09] MEDS: INSULIN ASPART SUPPLEMENTAL SCALE SQ SCH ×4 (08:00→20:06)
[2017-11-09] MEDS: METOPROLOL TARTRATE 50 MG TAB PO SCH ×2 (09:03→21:37)
[2017-11-09] MEDS: CALCIUM ACETATE 667 MG CAP PO SCH (09:03)
[2017-11-09] MEDS: PANTOPRAZOLE SOD 40 MG DELAYED RELEASE TAB PO SCH (09:03)
[2017-11-09] MEDS: SODIUM CHLORIDE 0.9% FLUSH 10 ML FLUSH IV FLUSH SCH ×2 (09:04→21:37)
--- NOTE | 2017-11-09 09:14 | HHI.PR ---
Subjective Remarks no complains states good hypoglycemic awareness was on bid insulin 70/30 at home elevated BP and BS readings this am Objective Vitals Vital Signs Date Time Temp Pulse Resp B/P (MAP) Pulse Ox O2 Delivery O2 Flow Rate FiO2 11/09/17 08:00 98.6 89 18 169/98 (121) 97 11/09/17 05:57 180/106 (130) 11/09/17 04:58 225/126 (159) 11/09/17 04:00 99.4 96 20 217/109 (145) 98 11/09/17 00:29 200/108 (138) 11/09/17 00:00 99.4 96 11/08/17 23:13 202/100 (134) 11/08/17 22:52 205/121 (149) 11/08/17 20:00 98.4 96 20 218/125 (156) 95 11/08/17 20:00 Room Air 11/08/17 12:06 97.9 99 20 186/110 (135) 90 11/08/17 12:00 Nasal Cannula 2.00 11/08/17 11:49 11/08/17 10:29 96 182/113 (136) 11/08/17 10:20 95 182/113 (136) 11/08/17 09:53 124 214/119 (150) I/O 11/08/17 11/08/17 11/08/17 11/09/17 11/09/17 11/09/17 07:00 15:00 23:00 07:00 15:00 23:00 Intake Total 360 ml Output Total 70 ml Balance -70 ml 360 ml Intake Oral 360 ml Output Emesis 70 ml # Voids 0 # Bowel Movements 0 Result Diagram: 11/09/17 0542 11/09/17 0542 Imaging Last Impressions Chest X-Ray 11/08/17 0629 Signed Impressions: Service Date/Time: Wednesday, November 08, 2017 06:41 - CONCLUSION: Mild hazy perihilar and bibasilar opacities with no consolidation. This could represent mild fluid overload. Danny Leyva MD Objective Remarks awake and alert, oriented x 3, no distress anicteric lungs- no rales right chest wall- perma cath in place regular rhythm abdomen soft, nontender extremities no edema A/P Problem List: (1) Hypertensive emergency ICD Code: I16.1 - Hypertensive emergency Status: Acute (2) ESRD (end stage renal disease) on dialysis ICD Code: N18.6 - End stage renal disease; Z99.2 - Dependence on renal dialysis (3) Pulmonary edema ICD Code: J81.1 - Chronic pulmonary edema (4) Hypoxemia ICD Code: R09.02 - Hypoxemia (5) Nausea & vomiting ICD Code: R11.2 - Nausea with vomiting, unspecified (6) Leukocytosis ICD Code: D72.829 - Elevated white blood cell count, unspecified (7) IDDM (insulin dependent diabetes mellitus) ICD Code: E11.9 - Type 2 diabetes mellitus without complications; Z79.4 - nursing home (current) use of insulin Assessment and Plan (1) Hypertensive emergency ICD Code: I16.1 - Hypertensive emergency Status: Acute Plan: He has pulmonary edema. Chest x-ray personally reviewed. Need dialysis. Patient is reportedly on multiple antihypertensives agent at home including hydralazine, metoprolol, losartan, clonidine. He reports compliance but admitted that he took clonidine patch off a couple of days ago. - Nephrology ff - Resume antihypertensive medications above. Clonidine and Labetalol PRN.- - Lopressor increased to 100 mg po bid. started on clonidine patch - Strongly advised the patient regarding the need to be compliant and he was advised of the risks of sudden stroke, heart attack, or that can occur with severe HTN. (2) ESRD (end stage renal disease) on dialysis ICD Code: N18.6 - End stage renal disease; Z99.2 - Dependence on renal dialysis Plan: Nephrology ff Due to social issue and immigration status, he is not able to have outpatient dialysis. Apparently he is supposed to come to the emergency room on Mondays and for dialysis. Case management consulted. (3) Pulmonary edema ICD Code: J81.1 - Chronic pulmonary edema Plan: Secondary to hypertensive emergency and end-stage renal disease in need of dialysis Continue supplemental oxygen Incentive spirometry (4) Hypoxemia ICD Code: R09.02 - Hypoxemia Plan: Secondary to above. Continue supplemental oxygen. Wean off oxygen as tolerated. (5) Nausea & vomiting- improved ICD Code: R11.2 - Nausea with vomiting, unspecified Plan: Probably due to uremia and hypertensive emergency. Symptoms have improved currently. (6) Leukocytosis ICD Code: D72.829 - Elevated white blood cell count, unspecified Plan: Probably reactive. He has been having some nasal congestion. May have a viral syndrome. No signs of a bacterial infection at this point. Monitor. 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
[2017-11-09] MEDS ORDERED: SODIUM POLYSTYRENE SULFONATE SUSP 15 GM/60 ML CUP PO ONE (09:30)
[2017-11-09 10:52] LABS: OVALOCYTES 2+ (NORMAL); TOXIC VACUOLATION PRESENT (NONE SEEN)
[2017-11-09] MEDS ORDERED: cloNIDine HCL 0.2 MG/24 HR PATCH T-DERMAL ONE (11:00)
--- NOTE | 2017-11-09 11:14 | HHI.NPPN ---
Subjective General Problems: Anemia, Edema Renal Failure: Chronic Interval History Dialyzed yesterday. Hyperglycemic and hyperkalemic today. No longer vomiting. (Keira Bar) Objective Data Data Vital Signs Date Time Temp Pulse Resp B/P (MAP) Pulse Ox O2 Delivery O2 Flow Rate FiO2 11/09/17 08:00 98.6 89 18 169/98 (121) 97 11/09/17 07:15 Room Air 11/09/17 05:57 180/106 (130) 11/09/17 04:58 225/126 (159) 11/09/17 04:00 99.4 96 20 217/109 (145) 98 11/09/17 00:29 200/108 (138) 11/09/17 00:00 99.4 96 11/08/17 23:13 202/100 (134) 11/08/17 22:52 205/121 (149) 11/08/17 20:00 98.4 96 20 218/125 (156) 95 11/08/17 20:00 Room Air 11/08/17 12:06 97.9 99 20 186/110 (135) 90 11/08/17 12:00 Nasal Cannula 2.00 11/08/17 11:49 (Keira Bar) -: 11/09/17 0542 11/09/17 0542 Imaging Last 72 hours Impressions Chest X-Ray 11/08/17 0629 Signed Impressions: Service Date/Time: Wednesday, November 08, 2017 06:41 - CONCLUSION: Mild hazy perihilar and bibasilar opacities with no consolidation. This could represent mild fluid overload. Danny Leyva MD (Keira Bar) Physical Exam General Appearance: Well Developed, No Acute Distress, Comfortable (Keira Bar) Throat Throat Exam: Oral Mucosa Stem & Moist (Keira Bar) Pulmonary Resp Exam: Clear Bilaterally, Breath Sounds Equal (Keira Bar) Cardiology CV Exam: Regular, Normal Sinus Rhythm (Keira aBr) Gastrointestinal/Abdomen GI Exam: Soft, Non-Tender (Keira Bar) Musculoskeletal MS Exam: Joints Intact, Normal Tone (Keira Bar) Integumentary Skin Exam: Warm, Dry, Intact (Keira Bar) Extremeties Extremities Exam: No Edema, Pedal Pulses Palpable (Keira Bar) Neurologic Neuro Exam: Alert, Awake, Oriented, Speech Clear, Moving All Extremities (Keira Bar) Psychiatric Psych Exam: Appropriate Responses (Keira Bar) Assessment/Plan Discussed Condition With: Patient Assessment Summary: Anemia of CKD, Hypertension, Diabetes Mellitus, End Stage Renal Disease Problem List: (1) ESRD (end stage renal disease) on dialysis ICD Codes: N18.6 - End stage renal disease; Z99.2 - Dependence on renal dialysis Plan: Dialyzed yesterday. We will dialyze today and maintain TTS HD schedule Repeat labs tomorrow. He has Permcath for HD. Fluid removal as tolerated Avoid IVF. Outpatient HD arrangements and transitional HD plans cannot be made at this time. If discharged please consult equipment monitor phototypesetting supervisor firearms if readmitted. (2) Hyperkalemia ICD Codes: E87.5 - Hyperkalemia Plan: Due to extracellular K shift resulting from hyperglycemia. Will be dialyzed today. Needs BG controlled with insulin. (3) Hyperglycemia ICD Codes: R73.9 - Hyperglycemia, unspecified Status: Acute Plan: Type I DM, HHNK. Needs insulin gtt most likely. (4) Hypertensive urgency ICD Codes: I16.0 - Hypertensive urgency Status: Acute Plan: Fluid removal with HD as tolerated Meds changes: Increase metoprolol to 100 mg BID Start clonidine 0.2 mg patch On losartan 50 daily Hydralazine 50 Q6h Amlodipine 10 daily Titrate/adjust medications as needed (5) Anemia ICD Codes: D64.9 - Anemia, unspecified Status: Acute Plan: Start venofer No epogen due to blood pressure elevation. (6) Nausea & vomiting ICD Codes: R11.2 - Nausea with vomiting, unspecified Plan: Improved. Monitor. (Keira Bar) Plan patient was seen and examined. Agree with above assessment and plan. (Hieu Valera MD) Keira Bar Nov 09, 2017 11:14 Hieu Valera MD Nov 09, 2017 16:23
[2017-11-09] MEDS ORDERED: INSULIN HUMAN NPH/R 70/30 1,000 UNITS/10 ML VIAL SQ SCH (17:00)
[2017-11-09] MEDS ORDERED: DEXTROSE 50% IN WATER 50 ML VIAL(D50) IV PUSH PRN (18:00)
[2017-11-09] MEDS ORDERED: GLUCAGON 1 MG/ML VIAL OTHER PRN (18:00)
[2017-11-09] MEDS ORDERED: PILL SPLITTER OTHER PRN (18:45)
[2017-11-09 22:30] LABS: BICARBONATE 28.9 MEQ/L (21.0-32.0); CREATININE 9.38 MG/DL (0.60-1.30)
[2017-11-10] VITALS (8 sets, daily range): BP systolic 141–188; BP diastolic 86–111; PULSE 72–84; RESP 16–20; TEMP 97.7–98.7; O2SAT 95–100
[2017-11-10] MEDS ORDERED: INSULIN HUMAN REGULAR 1,000 UNITS/10 ML VIAL IV PUSH ONE ×2 (03:30→05:15)
[2017-11-10] MEDS: cloNIDine HCL 0.1 MG TAB PO PRN (03:53)
[2017-11-10] MEDS: hydrALAZINE HCL 50 MG TAB PO SCH ×4 (03:54→22:20)
[2017-11-10] MEDS: SODIUM CHLORIDE 0.9% FLUSH 10 ML FLUSH IV FLUSH PRN (05:08)
[2017-11-10] MEDS ORDERED: INSULIN HUMAN NPH/R 70/30 1,000 UNITS/10 ML VIAL SQ SCH (08:00)
[2017-11-10] MEDS: INSULIN ASPART SUPPLEMENTAL SCALE SQ SCH ×4 (08:00→22:21)
[2017-11-10] MEDS: PANTOPRAZOLE SOD 40 MG DELAYED RELEASE TAB PO SCH (08:40)
[2017-11-10] MEDS: METOPROLOL TARTRATE 50 MG TAB PO SCH ×2 (08:40→22:20)
[2017-11-10] MEDS: SODIUM CHLORIDE 0.9% FLUSH 10 ML FLUSH IV FLUSH SCH ×2 (08:41→22:21)
[2017-11-10 08:54] LABS: ALBUMIN 2.9 GM/DL (3.4-5.0); BICARBONATE 26.1 MEQ/L (21.0-32.0); CALCIUM 9.2 MG/DL (8.5-10.1); CREATININE 9.92 MG/DL (0.60-1.30)
[2017-11-10 09:01] LABS: PHOSPHORUS 4.5 MG/DL (2.5-4.9)
--- NOTE | 2017-11-10 10:05 | HHI.PR ---
Subjective Remarks feeling better no nausea or vomiting regviewed blood sugars- seen with Mom - at home on 35 units q am and 15 in pm MOm refusing HD today Objective Vitals Vital Signs Date Time Temp Pulse Resp B/P (MAP) Pulse Ox O2 Delivery O2 Flow Rate FiO2 11/10/17 09:23 100 11/10/17 08:00 98.2 76 18 167/102 (123) 100 11/10/17 06:58 156/93 (114) 11/10/17 04:00 98.7 84 20 188/111 (136) 99 11/10/17 00:21 98.4 78 20 168/91 (116) 99 11/10/17 00:00 Room Air 11/09/17 22:28 81 161/101 (121) 99 11/09/17 20:00 Room Air 11/09/17 20:00 81 20 205/117 (146) 99 11/09/17 16:00 98.7 93 18 187/106 (133) 99 11/09/17 12:00 98 21 11/09/17 12:00 98.5 87 18 161/98 (119) 99 I/O 11/09/17 11/09/17 11/09/17 11/10/17 11/10/17 11/10/17 07:00 15:00 23:00 07:00 15:00 23:00 Intake Total 360 ml 720 ml 480 ml Output Total 400 ml Balance 360 ml 720 ml 80 ml Intake Oral 360 ml 720 ml 480 ml Output Urine Total 400 ml # Voids 0 2 # Bowel Movements 0 0 Result Diagram: 11/09/17 0542 11/10/17 0510 Imaging Last Impressions Chest X-Ray 11/08/17 0629 Signed Impressions: Service Date/Time: Wednesday, November 08, 2017 06:41 - CONCLUSION: Mild hazy perihilar and bibasilar opacities with no consolidation. This could represent mild fluid overload. Danny Leyva MD Objective Remarks awake and alert, oriented x 3, no distress anicteric lungs- no rales right chest wall- perma cath in place regular rhythm abdomen soft, nontender extremities no edema A/P Problem List: (1) Hypertensive emergency ICD Code: I16.1 - Hypertensive emergency Status: Acute (2) ESRD (end stage renal disease) on dialysis ICD Code: N18.6 - End stage renal disease; Z99.2 - Dependence on renal dialysis (3) Pulmonary edema ICD Code: J81.1 - Chronic pulmonary edema (4) Hypoxemia ICD Code: R09.02 - Hypoxemia (5) Nausea & vomiting ICD Code: R11.2 - Nausea with vomiting, unspecified (6) Leukocytosis ICD Code: D72.829 - Elevated white blood cell count, unspecified (7) IDDM (insulin dependent diabetes mellitus) ICD Code: E11.9 - Type 2 diabetes mellitus without complications; Z79.4 - care home (current) use of insulin Assessment and Plan (1) Hypertensive emergency ICD Code: I16.1 - Hypertensive emergency Status: Acute Plan: He has pulmonary edema. Chest x-ray personally reviewed. Need dialysis. Patient is reportedly on multiple antihypertensives agent at home including hydralazine, metoprolol, losartan, clonidine. He reports compliance but admitted that he took clonidine patch off a couple of days ago. - Nephrology ff - Resume antihypertensive medications above. Clonidine and Labetalol PRN.- - Lopressor 100 mg po bid. Hydralazine 75 mg po q 6. amlodipine 10 mg daily - start clonidine 0.1 mg po tid (2) ESRD (end stage renal disease) on dialysis ICD Code: N18.6 - End stage renal disease; Z99.2 - Dependence on renal dialysis Plan: Nephrology ff Due to social issue and immigration status, he is not able to have outpatient dialysis. Apparently he is supposed to come to the emergency room on Mondays and for dialysis. Case management ff HD per nephrology (3) Pulmonary edema- improved ICD Code: J81.1 - Chronic pulmonary edema Plan: Secondary to hypertensive emergency and end-stage renal disease in need of dialysis Continue supplemental oxygen Incentive spirometry (4) Hypoxemia- imrpoved ICD Code: R09.02 - Hypoxemia Plan: Secondary to above. Continue supplemental oxygen. Wean off oxygen as tolerated. (5) Nausea & vomiting- improved ICD Code: R11.2 - Nausea with vomiting, unspecified Plan: Probably due to uremia and hypertensive emergency. Symptoms have improved currently. (6) Leukocytosis ICD Code: D72.829 - Elevated white blood cell count, unspecified Plan: Probably reactive. He has been having some nasal congestion. May have a viral syndrome. No signs of a bacterial infection at this point. Monitor. (7) DM - insulin requiring- elevated readings 600s-m not in DKA ICD Code: E11.9 - Type 2 diabetes mellitus without complications; Z79.4 - care home (current) use of insulin Plan: Sliding scale insulin with Accu-Cheks erratic readings - Increase 70/30 to 18 units bid - ADA diet. dietitian consult - Diabetic neuropathy - states baseline uses a walker - PT consult Anemia of ESRD - on IV Sucrose Luis Woody MD Nov 10, 2017 10:05
[2017-11-10] MEDS ORDERED: IRON SUCROSE INJ 100 MG in SODIUM CHLORIDE 0.9% INJ 100 ML IV SCH (11:00)
--- NOTE | 2017-11-10 11:54 | HHI.NPPN ---
Subjective General Problems: Anemia, Edema Renal Failure: Chronic Interval History Mother at bedside. Refused HD yesterday. Glucose is better. (Keira Bar) Objective Data Data Vital Signs Date Time Temp Pulse Resp B/P (MAP) Pulse Ox O2 Delivery O2 Flow Rate FiO2 11/10/17 09:23 100 11/10/17 08:00 98.2 76 18 167/102 (123) 100 11/10/17 07:00 Room Air 11/10/17 06:58 156/93 (114) 11/10/17 04:00 98.7 84 20 188/111 (136) 99 11/10/17 00:21 98.4 78 20 168/91 (116) 99 11/10/17 00:00 Room Air 11/09/17 22:28 81 161/101 (121) 99 11/09/17 20:00 Room Air 11/09/17 20:00 81 20 205/117 (146) 99 11/09/17 16:00 98.7 93 18 187/106 (133) 99 11/09/17 12:00 98 21 11/09/17 12:00 98.5 87 18 161/98 (119) 99 (Keira Bar) -: 11/09/17 0542 11/10/17 0510 Imaging Last 72 hours Impressions Chest X-Ray 11/08/17 0629 Signed Impressions: Service Date/Time: Wednesday, November 08, 2017 06:41 - CONCLUSION: Mild hazy perihilar and bibasilar opacities with no consolidation. This could represent mild fluid overload. Danny Leyva MD (Keira Bar) Physical Exam General Appearance: Well Developed, No Acute Distress, Comfortable (Keira Bar) Throat Throat Exam: Oral Mucosa [place] & Moist (Keira Bra) Pulmonary Resp Exam: Clear Bilaterally, Breath Sounds Equal (Keira Bar) Cardiology CV Exam: Regular, Normal Sinus Rhythm (Keira Bar) Gastrointestinal/Abdomen GI Exam: Soft, Non-Tender (Keira Bar) Musculoskeletal MS Exam: Joints Intact, Normal Tone (Keira Bar) Integumentary Skin Exam: Warm, Dry, Intact (Keira Bar) Extremeties Extremities Exam: No Edema, Pedal Pulses Palpable (Keira Bar) Neurologic Neuro Exam: Alert, Awake, Oriented, Speech Clear, Moving All Extremities (Keira Bar) Psychiatric Psych Exam: Appropriate Responses (Keira Bar) Assessment/Plan Discussed Condition With: Patient Assessment Summary: Anemia of CKD, Hypertension, Diabetes Mellitus, End Stage Renal Disease Problem List: (1) ESRD (end stage renal disease) on dialysis ICD Codes: N18.6 - End stage renal disease; Z99.2 - Dependence on renal dialysis Plan: Dialyzed Wednesday, refused Wednesday. HD Today (Wed). Then can potentially be discharged. States he will come to ER for HD although no plans for enrollment in transitional program or outpatient HD He has Permcath for HD. Fluid removal as tolerated. 6 L off on Wednesday. Avoid IVF. Consult the television actor fundraising consultant if readmitted please. (2) Hyperkalemia ICD Codes: E87.5 - Hyperkalemia Plan: Improved (3) Hyperglycemia ICD Codes: R73.9 - Hyperglycemia, unspecified Status: Acute Plan: Type I DM, HHNK. Needs insulin gtt most likely. (4) Hypertensive urgency ICD Codes: I16.0 - Hypertensive urgency Status: Acute Plan: Fluid removal with HD as tolerated On metoprolol to 100 mg BID clonidine 0.2 mg patch On losartan 50 daily Hydralazine 50 Q6h Amlodipine 10 daily Titrate/adjust medications as needed (5) Anemia ICD Codes: D64.9 - Anemia, unspecified Status: Acute Plan: On venofer No epogen due to blood pressure elevation. (6) Nausea & vomiting ICD Codes: R11.2 - Nausea with vomiting, unspecified Plan: Improved. Monitor. (Keira Bar) Plan patient was seen and examined. Agree with above assessment and plan. (Hieu Valera MD) Keira Bar Nov 10, 2017 11:54 Hieu Valera MD Nov 10, 2017 16:03
[2017-11-10] MEDS: cloNIDine HCL 0.1 MG TAB PO SCH ×2 (12:09→22:20)
[2017-11-10] MEDS: IRON SUCROSE INJ 100 MG in SODIUM CHLORIDE 0.9% INJ 100 ML IV SCH (14:08)
[2017-11-10] MEDS: INSULIN HUMAN NPH/R 70/30 1,000 UNITS/10 ML VIAL SQ SCH (17:50)
[2017-11-11 00:23] VITALS: BP 170/96; PULSE 79; RESP 16; TEMP 98.1; O2SAT 96
[2017-11-11 04:05] VITALS: BP 160/96; PULSE 72; RESP 18; TEMP 98.5; O2SAT 100
[2017-11-11] MEDS: hydrALAZINE HCL 50 MG TAB PO SCH ×3 (04:07→18:38)
[2017-11-11] MEDS: cloNIDine HCL 0.1 MG TAB PO SCH ×2 (06:23→14:00)
[2017-11-11 08:00] VITALS: BP 152/93; PULSE 71; RESP 16; TEMP 97.8; O2SAT 100
--- NOTE | 2017-11-11 08:25 | HHI.PR ---
Subjective Remarks feels good this am- had a good night BS this am 203 agress to dialysis today Objective Vitals Vital Signs Date Time Temp Pulse Resp B/P (MAP) Pulse Ox O2 Delivery O2 Flow Rate FiO2 11/11/17 04:05 98.5 72 18 160/96 (117) 100 11/11/17 04:05 Room Air 11/11/17 00:23 Room Air 11/11/17 00:23 98.1 79 16 170/96 (120) 96 11/10/17 20:18 Room Air 11/10/17 20:18 98.1 77 16 157/99 (118) 95 11/10/17 16:00 98.1 72 16 141/86 (104) 99 11/10/17 12:00 97.7 76 18 162/97 (118) 99 11/10/17 09:23 100 I/O 11/10/17 11/10/17 11/10/17 11/11/17 11/11/17 11/11/17 07:00 15:00 23:00 07:00 15:00 23:00 Intake Total 480 ml 360 ml 980 ml Output Total 400 ml Balance 80 ml 360 ml 980 ml Intake Oral 480 ml 360 ml 980 ml Output Urine Total 400 ml # Voids 2 2 # Bowel Movements 1 0 Result Diagram: 11/09/17 0542 11/10/17 0510 Imaging Last Impressions Chest X-Ray 11/08/17 0629 Signed Impressions: Service Date/Time: Wednesday, November 08, 2017 06:41 - CONCLUSION: Mild hazy perihilar and bibasilar opacities with no consolidation. This could represent mild fluid overload. Danny Leyva MD Objective Remarks awake and alert, oriented x 3, no distress, speech clear, smiling and interactive anicteric lungs- no rales, no wheezes right chest wall- perma cath in place regular rhythm abdomen soft, nontender, moves all extremities extremities no edema A/P Problem List: (1) Hypertensive emergency ICD Code: I16.1 - Hypertensive emergency Status: Acute (2) ESRD (end stage renal disease) on dialysis ICD Code: N18.6 - End stage renal disease; Z99.2 - Dependence on renal dialysis (3) Pulmonary edema ICD Code: J81.1 - Chronic pulmonary edema (4) Hypoxemia ICD Code: R09.02 - Hypoxemia (5) Nausea & vomiting ICD Code: R11.2 - Nausea with vomiting, unspecified (6) Leukocytosis ICD Code: D72.829 - Elevated white blood cell count, unspecified (7) IDDM (insulin dependent diabetes mellitus) ICD Code: E11.9 - Type 2 diabetes mellitus without complications; Z79.4 - care home (current) use of insulin Assessment and Plan (1) Hypertensive emergency ICD Code: I16.1 - Hypertensive emergency Status: Acute S/P pulmonary edema. Chest x-ray personally reviewed. Need dialysis. Patient is reportedly on multiple antihypertensives agent at home including hydralazine , metoprolol, losartan, clonidine. He reports compliance but admitted that he took clonidine patch off a couple of days ago. - Nephrology ff - Resume antihypertensive medications above. Clonidine and Labetalol PRN.- - Lopressor 100 mg po bid. Hydralazine 75 mg po q 6. amlodipine 10 mg daily - started clonidine 0.1 mg po tid (2) ESRD (end stage renal disease) on dialysis ICD Code: N18.6 - End stage renal disease; Z99.2 - Dependence on renal dialysis Plan: Nephrology ff Due to social issue and immigration status, he is not able to have outpatient dialysis. Apparently he is supposed to come to the emergency room on Mondays and for dialysis. Case management ff HD per nephrology- today (3) Pulmonary edema- improved ICD Code: J81.1 - Chronic pulmonary edema Plan: Secondary to hypertensive emergency and end-stage renal disease in need of dialysis Continue supplemental oxygen Incentive spirometry (4) Hypoxemia- improved ICD Code: R09.02 - Hypoxemia Plan: Secondary to above. Continue supplemental oxygen. Wean off oxygen as tolerated. (5) Nausea & vomiting- improved ICD Code: R11.2 - Nausea with vomiting, unspecified Plan: Probably due to uremia and hypertensive emergency. Symptoms have improved currently. (6) Leukocytosis ICD Code: D72.829 - Elevated white blood cell count, unspecified Plan: Probably reactive. He has been having some nasal congestion. May have a viral syndrome. No signs of a bacterial infection at this point. Monitor. 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 dietitian consulted - monitor and adjust - Diabetic neuropathy - states baseline uses a walker - PT consult Anemia of ESRD - on IV Sucrose Deconditioning- out of bed daily tid- Luis Gomez MD Nov 11, 2017 08:25
[2017-11-11] MEDS: METOPROLOL TARTRATE 50 MG TAB PO SCH (08:31)
[2017-11-11] MEDS: PANTOPRAZOLE SOD 40 MG DELAYED RELEASE TAB PO SCH (08:31)
[2017-11-11] MEDS: LOSARTAN 25 MG TAB PO SCH (08:32)
[2017-11-11] MEDS: INSULIN ASPART SUPPLEMENTAL SCALE SQ SCH ×3 (08:32→17:00)
[2017-11-11] MEDS: INSULIN HUMAN NPH/R 70/30 1,000 UNITS/10 ML VIAL SQ SCH ×2 (08:32→18:38)
[2017-11-11] MEDS: SODIUM CHLORIDE 0.9% FLUSH 10 ML FLUSH IV FLUSH SCH (08:32)
[2017-11-11] MEDS: IRON SUCROSE INJ 100 MG in SODIUM CHLORIDE 0.9% INJ 100 ML IV SCH (11:52)
[2017-11-11 12:00] VITALS: BP 119/80; PULSE 71; RESP 18; TEMP 97.7; O2SAT 90
--- NOTE | 2017-11-11 14:33 | HHI.NPPN ---
Subjective General Problems: Anemia, Edema Renal Failure: Chronic History of Present Illness This is a 27 y/o male on HD since August. 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 His last HD was when he came to ER and was discharged. He presents today vomiting with edema, shortness of breath. We were consulted to assist with dialysis arrangements. PMH of HTN, anemia, and IDDM, his blood pressure is markedly elevated. He is a full code, has Permcath for HD. (Ariadna Fraire) Objective Data Data Vital Signs Date Time Temp Pulse Resp B/P (MAP) Pulse Ox O2 Delivery O2 Flow Rate FiO2 11/11/17 12:00 97.7 71 18 119/80 (93) 90 11/11/17 09:45 Room Air 11/11/17 08:00 97.8 71 16 152/93 (112) 100 11/11/17 04:05 98.5 72 18 160/96 (117) 100 11/11/17 04:05 Room Air 11/11/17 00:23 Room Air 11/11/17 00:23 98.1 79 16 170/96 (120) 96 11/10/17 20:18 Room Air 11/10/17 20:18 98.1 77 16 157/99 (118) 95 11/10/17 16:00 98.1 72 16 141/86 (104) 99 (Ariadna Fraire) -: 11/09/17 0542 11/10/17 0510 Physical Exam General Appearance: Well Developed, No Acute Distress, Comfortable (Ariadna Fraire) Throat Throat Exam: Oral Mucosa [place] & Moist (Ariadna Fraire) Pulmonary Resp Exam: Clear Bilaterally, Breath Sounds Equal (Ariadna Fraire) Cardiology CV Exam: Regular, Normal Sinus Rhythm (Ariadna Fraire) Gastrointestinal/Abdomen GI Exam: Soft, Non-Tender (Ariadna Fraire) Musculoskeletal MS Exam: Joints Intact, Normal Tone (Ariadna Fraire) Integumentary Skin Exam: Warm, Dry, Intact (Ariadna Fraire) Extremeties Extremities Exam: No Edema, Pedal Pulses Palpable (Ariadna Fraire) Neurologic Neuro Exam: Alert, Awake, Oriented, Speech Clear, Moving All Extremities (Ariadna Fraire) Psychiatric Psych Exam: Appropriate Responses (Ariadna Fraire) Assessment/Plan Discussed Condition With: Patient Assessment Summary: Anemia of CKD, Hypertension, Diabetes Mellitus, End Stage Renal Disease Problem List: (1) ESRD (end stage renal disease) on dialysis ICD Codes: N18.6 - End stage renal disease; Z99.2 - Dependence on renal dialysis Plan: States he will come to ER for HD although no plans for enrollment in transitional program or outpatient HD He has Permcath for HD. Fluid removal as tolerated. 6 L off on Wednesday. Avoid IVF. Seen during HD plans for discharge today. (2) Hyperkalemia ICD Codes: E87.5 - Hyperkalemia Plan: Improved (3) Hyperglycemia ICD Codes: R73.9 - Hyperglycemia, unspecified Status: Acute Plan: Type I DM, HHNK. Needs insulin gtt most likely. (4) Hypertensive urgency ICD Codes: I16.0 - Hypertensive urgency Status: Acute Plan: Fluid removal with HD as tolerated On metoprolol to 100 mg BID clonidine 0.2 mg patch On losartan 50 daily Hydralazine 50 Q6h Amlodipine 10 daily Titrate/adjust medications as needed (5) Anemia ICD Codes: D64.9 - Anemia, unspecified Status: Acute Plan: On venofer No epogen due to blood pressure elevation. (6) Nausea & vomiting ICD Codes: R11.2 - Nausea with vomiting, unspecified Plan: Improved. Monitor. Plan patient was seen and examined. Agree with above assessment and plan. (Ariadna Fraire) Problem List: (1) ESRD (end stage renal disease) on dialysis ICD Codes: N18.6 - End stage renal disease; Z99.2 - Dependence on renal dialysis Plan: States he will come to ER for HD although no plans for enrollment in transitional program or outpatient HD He has Permcath for HD. Fluid removal as tolerated. 6 L off on Wednesday. Avoid IVF. Seen during HD plans for discharge today. Patient seen and examined, agree with above. For D/C post HD. (2) Hyperkalemia ICD Codes: E87.5 - Hyperkalemia Plan: Improved (3) Hyperglycemia ICD Codes: R73.9 - Hyperglycemia, unspecified Status: Acute Plan: Type I DM, HHNK. Needs insulin gtt most likely. (4) Hypertensive urgency ICD Codes: I16.0 - Hypertensive urgency Status: Acute Plan: Fluid removal with HD as tolerated On metoprolol to 100 mg BID clonidine 0.2 mg patch On losartan 50 daily Hydralazine 50 Q6h Amlodipine 10 daily Titrate/adjust medications as needed (5) Anemia ICD Codes: D64.9 - Anemia, unspecified Status: Acute Plan: On venofer No epogen due to blood pressure elevation. (6) Nausea & vomiting ICD Codes: R11.2 - Nausea with vomiting, unspecified Plan: Improved. Monitor. (Concha Elise MD) Ariadna Fraire Nov 11, 2017 14:33 Concha Elise MD Nov 11, 2017 15:42
[2017-11-11] MEDS: HEPARIN SODIUM - IV 10,000 UNITS/10 ML VIAL PRN (14:51)
[2017-11-11] MEDS: GENTAMICIN SULFATE 20 MG/2 ML VIAL OTHER PRN (14:51)
[2017-11-11] MEDS ORDERED: NOVO7030P2 SQ (15:47)
[2017-11-11] MEDS ORDERED: HYDR-3800 PO (15:47)
[2017-11-11] MEDS ORDERED: METO-309 PO (15:47)
[2017-11-11] MEDS ORDERED: ZOFR4TAB PO (15:53)
--- NOTE | 2017-11-11 15:55 | HHI.DS ---
Discharge Summary Admission Date Nov 08, 2017 at 08:07 Discharge Date: Nov 11, 2017 Admitting Diagnosis hypertensive urgency, renal failure/dialysis dependent (1) Hypertensive emergency ICD Code: I16.1 - Hypertensive emergency Diagnosis: Principal Status: Acute (2) ESRD (end stage renal disease) on dialysis ICD Code: N18.6 - End stage renal disease; Z99.2 - Dependence on renal dialysis Diagnosis: Principal (3) Pulmonary edema ICD Code: J81.1 - Chronic pulmonary edema Diagnosis: Principal (4) Hypoxemia ICD Code: R09.02 - Hypoxemia Diagnosis: Secondary (5) Nausea & vomiting ICD Code: R11.2 - Nausea with vomiting, unspecified Diagnosis: Secondary (6) Leukocytosis ICD Code: D72.829 - Elevated white blood cell count, unspecified Diagnosis: Secondary (7) IDDM (insulin dependent diabetes mellitus) ICD Code: E11.9 - Type 2 diabetes mellitus without complications; 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 Patient reports his last dialysis was on . Due to social issue and immigration status, he is not able to have outpatient dialysis. Apparently he is supposed to come to the emergency room on Mondays and for dialysis. He reports having a hard time taking deep breath and had 4 episodes of vomiting this morning. Workup in the emergency room revealed blood pressure is severely elevated up to 249/143. He has evidence of pulmonary edema on chest x-ray. He has been given clonidine and hydralazine without much improvement. By the time of my evaluation, his blood pressure was still too 224/114. He just received amlodipine, hydralazine, and metoprolol. He reports compliance with taking his blood pressure medications at home but admits that he took off the clonidine patch 2 days ago. Currently he denies chest pain or palpitations. CBC/BMP: 11/09/17 0542 11/10/17 0510 Significant Findings Laboratory Tests Test 11/09/17 05:42 11/09/17 21:26 11/10/17 05:10 Red Blood Count 3.87 MIL/MM3 (4.50-5.90) Hemoglobin 10.6 GM/DL (13.0-17.0) Hematocrit 32.0 % (39.0-51.0) Neutrophils (%) (Auto) 77.5 % (16.0-70.0) Toxic Vacuolation PRESENT (NONE SEEN) Ovalocytes 2+ (NORMAL) Blood Urea Nitrogen 62 MG/DL (7-18) 81 MG/DL (7-18) 85 MG/DL (7-18) Creatinine 8.07 MG/DL (0.60-1.30) 9.38 MG/DL (0.60-1.30) 9.92 MG/DL (0.60-1.30) Random Glucose 656 MG/DL (74-106) 445 MG/DL (74-106) 396 MG/DL (74-106) Sodium Level 127 MEQ/L (136-145) 132 MEQ/L (136-145) 130 MEQ/L (136-145) Potassium Level 6.2 MEQ/L (3.5-5.1) Chloride Level 90 MEQ/L (98-107) 92 MEQ/L (98-107) 91 MEQ/L (98-107) Estimat Glomerular Filtration Rate 10 ML/MIN (>89) 8 ML/MIN (>89) 8 ML/MIN (>89) Albumin 2.9 GM/DL (3.4-5.0) PE at Discharge awake and alert, oriented x 3, no distress, speech clear, smiling and interactive anicteric lungs- no rales, no wheezes right chest wall- perma cath in place regular rhythm abdomen soft, nontender, moves all extremities extremities no edema Pt update on day of discharge no chest pain or shortness of breath taking po well d/w Mom at length- - no insurance she will come and bring him to ER for HD- at least 2x a week and prn d/w her that we adjusted some BP meds doses and wrote for zofran prn for nausea Pt Condition on Discharge: Stable Discharge Disposition: Discharge Home Discharge Time: > 30 minutes Discharge Instructions DIET: Follow Instructions for: Diabetic Diet, Renal Failure Diet Speech Therapy-Diet Recommends: Regular Activities you can perform: Weight Bearing as Benigno Activities to Avoid: Strenuous Activity Luis Woody MD Nov 11, 2017 15:55
== END 2017-11-11 18:59 | disposition home or self-care (01) | DRG 682 ==
LOC: NEPC 06:19 → OBSVTOIN 08:07 → NEDA 08:07 → N04A 11:56
PROVIDERS: ADMIT Internal Medicine; ATTEND Internal Medicine
PROC: 5A1D70Z Performance of Urinary Filtration, Intermittent, Less than 6 Hours Per Day (ICD-10-PCS; principal; 2017-11-08)
DX: N18.6 End stage renal disease (principal); J81.0 Acute pulmonary edema; E10.21 Type 1 diabetes mellitus with diabetic nephropathy; E10.40 Type 1 diabetes mellitus with diabetic neuropathy, unspecified; I16.1 Hypertensive emergency; R09.02 Hypoxemia; D63.1 Anemia in chronic kidney disease; E10.22 Type 1 diabetes mellitus with diabetic chronic kidney disease; E10.65 Type 1 diabetes mellitus with hyperglycemia; E10.649 Type 1 diabetes mellitus with hypoglycemia without coma; R09.81 Nasal congestion; R11.2 Nausea with vomiting, unspecified; D72.829 Elevated white blood cell count, unspecified; E87.5 Hyperkalemia; Z99.2 Dependence on renal dialysis; Z79.4 Long term (current) use of insulin; Z79.899 Other long term (current) drug therapy
CPT/HCPCS: 71045; 80048; 80069; 82948; 83540; 83550; 84100; 85025; 90935; 93005; 96374; 96375; J0360; J1580; J1644; J1756; J1815; J2405

== ENCOUNTER 2017-11-15 06:20 | Emergency (ER) | payer MEDICAID ==
[~2017-11-15] VITALS: Ht 160 cm; Wt 55.0 kg
[~2017-11-15 06:20] MED LIST changes: +ZOFR4TAB PO
[2017-11-15 06:22] VITALS: BP 201/105; PULSE 100; RESP 16; TEMP 97.8; O2SAT 100
--- NOTE | 2017-11-15 06:53 | PD ---
HPI Chief Complaint: Medical Clearance Time Seen by Provider: 06:50 Travel History International Travel<30 days: No Contact w/Intl Traveler<30days: No Traveled to known affect area: No History of Present Illness HPI 27-year-old male came to the emergency room with history of some chest pain but mainly to get dialyzed. Patient is originally from [place] but moved to this part of the country few weeks back. He has history of end-stage kidney disease and hemodialysis dependent. Patient has been here multiple times. He has been seen by our corrections caseworker and due to the lack of insurance does not have any outpatient follow-ups or vp software engineering. Current arrangement is to come to the emergency room on every Mondays and to get dialyzed. Patient says his last dialysis was last which was 4 days ago. Also a diabetic and hypertensive. He takes medications but this morning his blood sugar he said was 39. His mother who he lives with came him some tea and sugar cookies. He is hypertensive in triage. Patient is awake and answering questions appropriately. His chest pain is in the center and is a dull ache. No radiation and no aggravating or relieving factors identified. No history of shortness of breath, headache or any other symptoms. [facility] Past Medical History Narrative Medical List of his past medical, surgical, social and family history is reviewed from the nursing note. Asthma: No Autoimmune Disease: No Anxiety: No Depression: No Heart Rhythm Problems: No Cancer: No Cardiovascular Problems: Yes High Cholesterol: No Chemotherapy: No Chest Pain: No Congestive Heart Failure: No COPD: No Diabetes: Yes Patient Takes Glucophage: No Dialysis: Yes Diminished Hearing: No Endocrine: Yes Gastrointestinal Disorders: No GERD: No Genitourinary: Yes (ERSD, hemodialysis) Headaches: Yes Hiatal Hernia: No Heparin Induced Thrombocytopen: No Hypertension: Yes Immune Disorder: No Implanted Vascular Access Dvce: No Kidney Stones: No Musculoskeletal: No Neurologic: No Psychiatric: No Reproductive: No Respiratory: Yes Radiation Therapy: No Renal Failure: Yes Sickle Cell Disease: No Sleep Apnea: No Thyroid Disease: No Ulcer: No Past Surgical History Abdominal Surgery: No AICD: No Arteriovenous Shunt: No Cardiac Surgery: No Ear Surgery: No Endocrine Surgery: No Eye Surgery: No Genitourinary Surgery: No Gynecologic Surgery: No Insulin Pump: No Joint Replacement: No Neurologic Surgery: No Oral Surgery: No Pacemaker: No Thoracic Surgery: No Other Surgery: Yes (KIDNEY BIOPSY) Social History Alcohol Use: No Tobacco Use: No Substance Use: No Allergies-Medications (Allergen,Severity, Reaction): Coded Allergies: No Known Allergies (Unverified Allergy, Unknown, 11/18/17) Comments No known drug allergies. Reported Meds & Prescriptions Reported Meds & Active Scripts Active Novolin 70-30 Inj (Insulin Human Isoph/Insulin Regular) 1,000 Unit/10 Ml Vial 18 Units SQ BID@08,17 30 Days Lopressor (Metoprolol Tartrate) 50 Mg Tab 100 Mg PO Q12HR 30 Days Calcium Acetate (Calcium Acetate (Phosphate Bin) 667 Mg Cap 667 Mg PO TID 30 Days Cozaar (Losartan Potassium) 25 Mg Tab 25 Mg PO DAILY 30 Days Lopressor (Metoprolol Tartrate) 50 Mg Tab 50 Mg PO Q12HR 30 Days Hydralazine HCl 50 Mg Tablet 50 Mg PO Q6H 30 Days Furosemide 40 Mg Tab 60 Mg PO BID 30 Days Amlodipine (Amlodipine Besylate) 10 Mg Tab 10 Mg PO DAILY 30 Days Novolin 70-30 Inj (Insulin Human Isoph/Insulin Regular) 1,000 Unit/10 Ml Vial 30 Units SQ AM 15UNITS PM 30 Days take 30 units in am and take 15 units in pm Catapres (Clonidine) 0.1 Mg Tab 0.1 Mg PO Q6HR PRN 30 Days Pantoprazole (Pantoprazole Sodium) 40 Mg Tab 40 Mg PO DAILY Folic Acid 0.4 Mg Tab 400 Mcg PO DAILY Narrative Medication List of his home medications reviewed from the nursing note. Review of Systems Except as stated in HPI: all other systems reviewed are Neg Cardiovascular: Positive: Chest Pain or Discomfort Physical Exam Narrative GENERAL: Awake, alert, moderate distress SKIN: Focused skin assessment warm/dry. HEAD: Atraumatic. Normocephalic. EYES: Pupils equal and round. No scleral icterus. No injection or drainage. ENT: No nasal bleeding or discharge. Mucous membranes pink and moist. NECK: Trachea midline. No JVD. CARDIOVASCULAR: Regular rate and rhythm. No murmur appreciated. RESPIRATORY: No accessory muscle use. Clear to auscultation. Breath sounds equal bilaterally. GASTROINTESTINAL: Abdomen soft, non-tender, nondistended. Hepatic and splenic margins not palpable. MUSCULOSKELETAL: No obvious deformities. No clubbing. No cyanosis. No edema. NEUROLOGICAL: Awake and alert. No obvious cranial nerve deficits. Motor grossly within normal limits. Normal speech. PSYCHIATRIC: Appropriate mood and affect; insight and judgment normal. Data Data Last Documented VS Vital Signs Date Time Temp Pulse Resp B/P (MAP) Pulse Ox O2 Delivery O2 Flow Rate FiO2 11/15/17 17:25 11/15/17 09:14 79 18 99 Room Air 11/15/17 06:22 97.8 Orders Orders Electrocardiogram (11/15/17 06:47) Complete Blood Count With Diff (11/15/17 06:47) Basic Metabolic Panel (Bmp) (11/15/17 06:47) Magnesium (Mg) (11/15/17 06:47) Chest, Single Ap (11/15/17 06:47) Iv Access Insert/Monitor (11/15/17 06:47) Ecg Monitoring (11/15/17 06:47) Oximetry (11/15/17 06:47) Blood Glucose (11/15/17 06:56) Troponin I (11/15/17 06:56) Diet Regular Basic (11/15/17 Breakfast) Dialysate Flow Rate (11/15/17 08:47) Dialyzer (11/15/17 08:47) Concentrate (11/15/17 08:47) Acid Concentrate (11/15/17 08:47) Length Of Dialysis (11/15/17 08:47) Frequency Of Dialysis (11/15/17 08:47) Dialysis Obtain (11/15/17 08:47) Needle Size (11/15/17 08:47) Dialysis Schedule (11/15/17 08:47) Resp Oxygen Noah C Titrat 1-4 L (11/15/17 ) Dialysis Weight (11/15/17 08:47) ^ Obtain As Needed (11/15/17 08:47) Sodium Chlor 0.9% 1000 Ml Inj (Ns 1000 M (11/15/17 08:47) Heparin Inj (Heparin Inj) (11/15/17 09:00) Sodium Chlor 0.9% 1000 Ml Inj (Ns 1000 M (11/15/17 08:47) Sodium Chlor 0.9% 1000 Ml Inj (Ns 1000 M (11/15/17 08:47) Mannitol Inj (Mannitol Inj) (11/15/17 09:00) Albumin 25% Inj (Albumin 25% Inj) (11/15/17 09:00) Sodium Chloride 0.9% Flush (Ns Flush) (11/15/17 09:00) Heparin Inj (Heparin Inj) (11/15/17 09:00) Gentamicin Inj (Gentamicin Inj) (11/15/17 09:00) Ondansetron Inj (Zofran Inj) (11/15/17 09:00) Acetaminophen (Tylenol) (11/15/17 09:00) Diphenhydramine (Benadryl) (11/15/17 09:00) Nitroglycerin Sl (Nitrostat Sl) (11/15/17 09:00) Clonidine (Catapres) (11/15/17 09:00) Epoetin Luis Miguel Inj (Epogen Inj) (11/15/17 09:00) Gelatin 12 Mm/7 Mm Top (Gelfoam 12 Mm/7 (11/15/17 09:00) Blood Flow Rate (11/15/17 08:47) Consult Nephrology (11/15/17 ) (Hub Use Only)Inp Phy Cons/Ref (11/15/17 ) Ed Discharge Order (11/15/17 12:46) Labs Laboratory Tests Test 11/15/17 07:22 White Blood Count 8.8 TH/MM3 Red Blood Count 2.92 MIL/MM3 Hemoglobin 8.1 GM/DL Hematocrit 23.6 % Mean Corpuscular Volume 80.7 FL Mean Corpuscular Hemoglobin 27.6 PG Mean Corpuscular Hemoglobin Concent 34.1 % Red Cell Distribution Width 15.0 % Platelet Count 307 TH/MM3 Mean Platelet Volume 8.6 FL Neutrophils (%) (Auto) 69.2 % Lymphocytes (%) (Auto) 18.0 % Monocytes (%) (Auto) 8.2 % Eosinophils (%) (Auto) 3.5 % Basophils (%) (Auto) 1.1 % Neutrophils # (Auto) 6.1 TH/MM3 Lymphocytes # (Auto) 1.6 TH/MM3 Monocytes # (Auto) 0.7 TH/MM3 Eosinophils # (Auto) 0.3 TH/MM3 Basophils # (Auto) 0.1 TH/MM3 CBC Comment DIFF FINAL Differential Comment Blood Urea Nitrogen 105 MG/DL Creatinine 12.90 MG/DL Random Glucose 84 MG/DL Calcium Level 9.0 MG/DL Magnesium Level 2.6 MG/DL Sodium Level 135 MEQ/L Potassium Level 4.3 MEQ/L Chloride Level 98 MEQ/L Carbon Dioxide Level 25.4 MEQ/L Anion Gap 12 MEQ/L Estimat Glomerular Filtration Rate 6 ML/MIN Troponin I 0.07 NG/ML MDM Medical Decision Making Medical Screen Exam Complete: Yes Emergency Medical Condition: Yes Medical Record Reviewed: Yes Interpretation(s) Twelve-lead EKG was reviewed by me. Normal sinus rhythm, left axis deviation, lateral T wave inversions that's unchanged from 11/08/2017. Heart rate of 82 bpm. Differential Diagnosis ACS, non-STEMI, hypertensive crisis, end-stage renal disease, hemodialysis dependent, electrolyte abnormality Narrative Course 7:08 AM awaiting for the blood test results. Once I have the results back I will contact the vp software engineering and prepare for the dialysis. Plan is to discharge the patient home if everything else goes well after dialysis. 8:03 AM blood test results of back and as expected creatinine is elevated. Patient's troponin is slightly elevated but when compared to his last few troponin this is come down from before. I put a call out for the vp software engineering critical care nurse practitioner. His dialysis will be set up in the ER and then patient will be discharged home. 8:20 AM I discussed the case with Dr. Mesa who is on-call for nephrology and he has refused to dialyze the patient at this point. He wants the patient to be seen by Dr. Elise since he consulted on this patient last. A call has been put out to Dr. Elise and awaiting for him to call back. 8:[address] Elise just called back and he will dialyze the patient. After the dialysis patient should be able to go home. Procedures EKG Prior to Arrival: No Physician Communication Physician Communication Dr. Cardoza, Dr. Elise Diagnosis Primary Impression: End stage renal disease Additional Impressions: Dependent on hemodialysis Anemia Qualified Codes: D64.9 - Anemia, unspecified Hypertension Qualified Codes: I15.0 - Renovascular hypertension Disposition: 01 DISCHARGE HOME Condition: Stable Samir Villeda MD Nov 15, 2017 06:53
[2017-11-15 07:24] VITALS: RESP 18; O2SAT 100
[2017-11-15 07:29] VITALS: BP 187/105; PULSE 81; RESP 18; O2SAT 99
--- NOTE | 2017-11-15 07:29 | RADRPT ---
EXAM DATE/TIME: 11/15/2017 07:13 [place] COMPARISON: CHEST SINGLE AP, November 08, 2017, 6:41. INDICATIONS : Chest discomfort. MEDICAL HISTORY : Hypertension. Renal disease, end stage. Renal failure. Diabetes. SURGICAL HISTORY : Vascath. ENCOUNTER: Initial ACUITY: 1 day PAIN SCORE: 0/10 LOCATION: Bilateral chest FINDINGS: A single AP portable erect view of the chest demonstrates the lungs to be symmetrically aerated witho ut evidence of mass, infiltrate or effusion. The right-sided double-lumen central venous line remains in place. The heart size is at the upper limits of normal with no perihilar edema. Osseous structure s are intact. CONCLUSION: No acute disease. There is no current evidence of pulmonary edema. Danny Leyva MD on November 15, 2017 at 7:26 Board Certified Radiologist. This report was verified electronically.
[2017-11-15 07:44] LABS: AUTOMATED NEUTROPHIL # 6.1 TH/MM3 (1.8-7.7); BASOPHIL # 0.1 TH/MM3 (0-0.2); BASOPHIL % 1.1 % (0.0-2.0); EOSINOPHIL # 0.3 TH/MM3 (0-0.4); EOSINOPHIL % 3.5 % (0.0-4.0); HEMATOCRIT 23.6 % (39.0-51.0); HEMOGLOBIN 8.1 GM/DL (13.0-17.0); LYMPHOCYTE # 1.6 TH/MM3 (1.0-4.8); MEAN CELL VOLUME 80.7 FL (80.0-100.0); MEAN CORPUSCULAR HEMOGLOBIN 27.6 PG (27.0-34.0); MEAN CORPUSCULAR HGB CONC 34.1 % (32.0-36.0); MEAN PLATELET VOLUME 8.6 FL (7.0-11.0); MONO % 8.2 % (0.0-8.0); MONOCYTE # 0.7 TH/MM3 (0-0.9); NEUT % 69.2 % (16.0-70.0); PLATELET COUNT 307 TH/MM3 (150-450); RED BLOOD COUNT 2.92 MIL/MM3 (4.50-5.90); WHITE BLOOD COUNT 8.8 TH/MM3 (4.0-11.0)
[2017-11-15 07:52] LABS: BICARBONATE 25.4 MEQ/L (21.0-32.0); MAGNESIUM 2.6 MG/DL (1.5-2.5)
[2017-11-15 07:55] LABS: CREATININE 12.9 MG/DL (0.60-1.30)
[2017-11-15] MEDS ORDERED: SODIUM CHLOR 0.9% 1000 ML INJ 1,000 ML OTHER PRN ×2 (08:47)
[2017-11-15] MEDS ORDERED: SODIUM CHLOR 0.9% 1000 ML INJ 1,000 ML IV PRN (08:47)
[2017-11-15] MEDS ORDERED: NITROGLYCERIN 0.4 MG SL 25 TABS/BTL SL PRN (09:00)
[2017-11-15] MEDS ORDERED: EPOETIN ALFA 10,000 UNITS/ML VIAL IV PUSH PRN (09:00)
[2017-11-15] MEDS ORDERED: GELATIN 12 MM/7 MM FOAM TOP PRN (09:00)
[2017-11-15] MEDS ORDERED: SODIUM CHLORIDE 0.9% FLUSH 10 ML FLUSH IV FLUSH PRN (09:00)
[2017-11-15] MEDS ORDERED: MANNITOL 12.5 GM/50 ML VIAL IV PRN (09:00)
[2017-11-15] MEDS ORDERED: ACETAMINOPHEN 325 MG TAB PO PRN (09:00)
[2017-11-15] MEDS ORDERED: GENTAMICIN SULFATE 20 MG/2 ML VIAL OTHER PRN (09:00)
[2017-11-15] MEDS ORDERED: HEPARIN SODIUM - IV 10,000 UNITS/10 ML VIAL IV FLUSH PRN (09:00)
[2017-11-15] MEDS ORDERED: diphenhydrAMINE HCL 25 MG CAP PO PRN (09:00)
[2017-11-15] MEDS ORDERED: ONDANSETRON HCL 4 MG/2 ML VIAL IV PUSH PRN (09:00)
[2017-11-15] MEDS ORDERED: HEPARIN SODIUM - IV 10,000 UNITS/10 ML VIAL PRN (09:00)
[2017-11-15] MEDS ORDERED: ALBUMIN 25% INJ 100 ML IV PRN (09:00)
[2017-11-15] MEDS ORDERED: cloNIDine HCL 0.1 MG TAB PO PRN (09:00)
--- NOTE | 2017-11-15 09:07 | PD.CONS ---
[facility] Service Nephrology Consult Requested By Dr. Villeda Reason for Consult ESRD and HD Primary Care Physician No Primary Care Physician History of Present Illness Patient is a 27-year-old male known to with a past medical history of uncontrolled hypertension, ESRD with HD, diabetic, and anemia. He came to the hospital because he needs to have dialysis. Patient is originally from [place] but moved to this part of the country in [place]. Patient has been here multiple times. Current arrangement is to come to the emergency room on every Mondays and to get dialyzed. Patient says his last dialysis was last which was 4 days ago. Reports SOB which is common for him prior to his dialysis. Also reports some intermittent Chest discomfort. Denies any nausea, vomiting or diarrhea. (Ariadna Fraire) Review of Systems Respiratory: COMPLAINS OF: Shortness of breath Cardiovascular: COMPLAINS OF: Chest pain Gastrointestinal: DENIES: Diarrhea, Nausea Genitourinary: DENIES: Urinary frequency, Urgency (Ariadna Fraire) Past Family Social History Allergies: Coded Allergies: No Known Allergies (Unverified Allergy, Unknown, 11/15/17) Past Medical History Uncontrolled HTN Diabetes chronic anemia Past Surgical History Renal biopsy Active Ordered Medications Current Medications Medications (Trade) Dose Ordered Sig/Ovi Route Start Time Stop Time Status Last Admin Sodium Chloride 1,000 ml @ 0 mls/hr Q0M PRN OTHER 11/15/17 08:47 UNV (Heparin Inj) 8,000 units UNSCH PRN IV FLUSH 11/15/17 09:00 UNV Sodium Chloride 1,000 ml @ 200 mls/hr Q5H PRN IV 11/15/17 08:47 UNV Sodium Chloride 1,000 ml @ 0 mls/hr Q0M PRN OTHER 11/15/17 08:47 UNV (Mannitol Inj) 12.5 gm UNSCH PRN IV 11/15/17 09:00 UNV Albumin Human 100 ml @ 60 mls/hr UNSCH PRN IV 11/15/17 09:00 UNV (NS Flush) 5 ml UNSCH PRN IV FLUSH 11/15/17 09:00 UNV (Heparin Inj) UNSCH PRN .XX 11/15/17 09:00 UNV (Gentamicin Inj) 20 mg UNSCH PRN OTHER 11/15/17 09:00 UNV (Zofran Inj) 4 mg UNSCH PRN IV PUSH 11/15/17 09:00 UNV (Tylenol) 650 mg UNSCH PRN PO 11/15/17 09:00 UNV (Benadryl) 25 mg UNSCH PRN PO 11/15/17 09:00 UNV (Nitrostat Sl) 0.4 mg UNSCH PRN SL 11/15/17 09:00 UNV (Catapres) 0.1 mg UNSCH PRN PO 11/15/17 09:00 UNV (Epogen Inj) 10,000 units UNSCH PRN IV PUSH 11/15/17 09:00 UNV (Gelfoam 12 Mm/7 Mm Top) 1 foam UNSCH PRN TOP 11/15/17 09:00 UNV Family History Non contributory Social History Previously lived in [place]. Attempting to relocate. Denies tobacco Denies EtOH Denies illicits (Ariadna Fraire) Physical Exam Vital Signs Vital Signs Date Time Temp Pulse Resp B/P (MAP) Pulse Ox O2 Delivery O2 Flow Rate FiO2 11/15/17 07:29 81 18 187/105 (132) 99 Room Air 11/15/17 07:24 18 100 Room Air 11/15/17 06:22 97.8 100 16 201/105 (137) 100 Room Air Physical Exam GENERAL: Alert and oriented SKIN: Warm and dry. HEAD: Normocephalic. EYES: No scleral icterus. No injection or drainage. NECK: Supple, trachea midline. No JVD or lymphadenopathy. CARDIOVASCULAR: Regular rate and rhythm without murmurs, gallops, or rubs. RESPIRATORY: Breath sounds equal bilaterally. No accessory muscle use. GASTROINTESTINAL: Abdomen soft, non-tender, nondistended. MUSCULOSKELETAL: No cyanosis, or edema. BACK: Nontender without obvious deformity. No CVA tenderness. Laboratory Laboratory Tests Test 11/15/17 07:22 White Blood Count 8.8 Red Blood Count 2.92 Hemoglobin 8.1 Hematocrit 23.6 Mean Corpuscular Volume 80.7 Mean Corpuscular Hemoglobin 27.6 Mean Corpuscular Hemoglobin Concent 34.1 Red Cell Distribution Width 15.0 Platelet Count 307 Mean Platelet Volume 8.6 Neutrophils (%) (Auto) 69.2 Lymphocytes (%) (Auto) 18.0 Monocytes (%) (Auto) 8.2 Eosinophils (%) (Auto) 3.5 Basophils (%) (Auto) 1.1 Neutrophils # (Auto) 6.1 Lymphocytes # (Auto) 1.6 Monocytes # (Auto) 0.7 Eosinophils # (Auto) 0.3 Basophils # (Auto) 0.1 CBC Comment DIFF FINAL Differential Comment Blood Urea Nitrogen 105 Creatinine 12.90 Random Glucose 84 Calcium Level 9.0 Magnesium Level 2.6 Sodium Level 135 Potassium Level 4.3 Chloride Level 98 Carbon Dioxide Level 25.4 Anion Gap 12 Estimat Glomerular Filtration Rate 6 Troponin I 0.07 (Ariadna Fraire) Result Diagram: 11/15/1772111/15/17721 Assessment and Plan Problem List: (1) End stage renal disease ICD Codes: N18.6 - End stage renal disease Status: Acute Plan: HD today, orders entered. He has Permcath for HD. Needs fluid removal today. Outpatient HD arrangements and transitional HD plans cannot be made at this time. Avoid IVF. Epogen with dialysis Plan is for discharge after dialysis and follow up on . 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 He has Permcath for HD. Needs fluid removal today. Outpatient HD arrangements and transitional HD plans cannot be made at this time. Avoid IVF. Epogen with dialysis Plan is for discharge after dialysis and follow up on . Patient seen and examined, agree with above during. 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
[2017-11-15 09:14] VITALS: BP 178/101; PULSE 79; RESP 18; O2SAT 99
--- NOTE | 2017-11-16 23:03 | EKG ---
Date Performed: 11/15/2017 Time Performed: 07:21:41 PTAGE: 27 years EKG: Sinus rhythm BORDERLINE LEFT AXIS DEVIATION POSSIBLE RIGHT VENTRICULAR CONDUCTION DELAY ST DEVIATION AND MODERATE T-WAVE ABNORMALITY ABNORMAL ECG PREVIOUS TRACING : 11/08/2017 06.56 Since the prior tracing, there has been no significant reza DOCTOR: Michelle Rahman Interpretating Date/Time 11/16/2017 23:01:58
== END 2017-11-15 17:38 | disposition home or self-care (01) ==
LOC: NEPE 06:20
DX: E11.22 Type 2 diabetes mellitus with diabetic chronic kidney disease (principal); I12.0 Hypertensive chronic kidney disease with stage 5 chronic kidney disease or end stage renal disease; D63.1 Anemia in chronic kidney disease; N18.6 End stage renal disease; Z79.4 Long term (current) use of insulin; Z99.2 Dependence on renal dialysis
CPT/HCPCS: 71045; 80048; 83735; 84484; 85025; 90935; 93005; 96374; G0257

== ENCOUNTER 2017-11-18 06:46 | Emergency (ER) | payer MEDICAID ==
[~2017-11-18] VITALS: Ht 160 cm; Wt 54.0 kg
[~2017-11-18 06:46] MED LIST changes: -ZOFR4TAB PO
[2017-11-18 07:24] VITALS: BP 206/123; PULSE 102; RESP 18; TEMP 97.9; O2SAT 97
[2017-11-18] MEDS ORDERED: NIFEdipine 20 MG CAP PO ONE (07:45)
--- NOTE | 2017-11-18 07:45 | PD ---
HPI Chief Complaint: Medical Clearance Time Seen by Provider: 07:32 Travel History International Travel<30 days: No Contact w/Intl Traveler<30days: No Traveled to known affect area: No History of Present Illness HPI This patient presents requesting dialysis. I reviewed the medical record. He has been coming to the emergency room Wednesday and to get dialyzed. Apparently last month he moved here from [place] with no medical insurance and without making any prior arrangements for dialysis. Dialyzed here 3 days ago as an emergency room patient and discharged home. He has chronic uncontrolled hypertension. Blood pressure is 200/120. He reports compliance with clonidine and hydralazine and utilizes a clonidine patch. He is not having shortness of breath or chest pain or headache. Symptom severity is moderate. No alleviating factors. Symptoms exacerbated by his lack of outpatient follow-up PFSH Past Medical History Asthma: No Autoimmune Disease: No Anxiety: No Depression: No Heart Rhythm Problems: No Cancer: No Cardiovascular Problems: Yes High Cholesterol: No Chemotherapy: No Chest Pain: No Congestive Heart Failure: No COPD: No Diabetes: Yes Patient Takes Glucophage: No Dialysis: Yes Diminished Hearing: No Endocrine: Yes Gastrointestinal Disorders: No GERD: No Genitourinary: Yes (ERSD, hemodialysis) Headaches: Yes Hiatal Hernia: No Heparin Induced Thrombocytopen: No Hypertension: Yes Immune Disorder: No Implanted Vascular Access Dvce: No Kidney Stones: No Musculoskeletal: No Neurologic: No Psychiatric: No Reproductive: No Respiratory: Yes Radiation Therapy: No Renal Failure: Yes Sickle Cell Disease: No Sleep Apnea: No Thyroid Disease: No Ulcer: No Past Surgical History Abdominal Surgery: No AICD: No Arteriovenous Shunt: No Cardiac Surgery: No Ear Surgery: No Endocrine Surgery: No Eye Surgery: No Genitourinary Surgery: No Gynecologic Surgery: No Insulin Pump: No Joint Replacement: No Neurologic Surgery: No Oral Surgery: No Pacemaker: No Thoracic Surgery: No Other Surgery: Yes (KIDNEY BIOPSY) Social History Alcohol Use: No Tobacco Use: No Substance Use: No Allergies-Medications (Allergen,Severity, Reaction): Coded Allergies: No Known Allergies (Unverified Allergy, Unknown, 11/18/17) Reported Meds & Prescriptions Reported Meds & Active Scripts Active Novolin 70-30 Inj (Insulin Human Isoph/Insulin Regular) 1,000 Unit/10 Ml Vial 18 Units SQ BID@, 30 Days Lopressor (Metoprolol Tartrate) 50 Mg Tab 100 Mg PO Q12HR 30 Days Calcium Acetate (Calcium Acetate (Phosphate Bin) 667 Mg Cap 667 Mg PO TID 30 Days Cozaar (Losartan Potassium) 25 Mg Tab 25 Mg PO DAILY 30 Days Lopressor (Metoprolol Tartrate) 50 Mg Tab 50 Mg PO Q12HR 30 Days Hydralazine HCl 50 Mg Tablet 50 Mg PO Q6H 30 Days Furosemide 40 Mg Tab 60 Mg PO BID 30 Days Amlodipine (Amlodipine Besylate) 10 Mg Tab 10 Mg PO DAILY 30 Days Novolin 70-30 Inj (Insulin Human Isoph/Insulin Regular) 1,000 Unit/10 Ml Vial 30 Units SQ AM 15UNITS PM 30 Days take 30 units in am and take 15 units in pm Catapres (Clonidine) 0.1 Mg Tab 0.1 Mg PO Q6HR PRN 30 Days Pantoprazole (Pantoprazole Sodium) 40 Mg Tab 40 Mg PO DAILY Folic Acid 0.4 Mg Tab 400 Mcg PO DAILY Review of Systems General / Constitutional: No: Fever Eyes: No: Visual changes HENT: No: Headaches Cardiovascular: No: Chest Pain or Discomfort Respiratory: No: Shortness of Breath Gastrointestinal: No: Abdominal Pain Genitourinary: No: Dysuria Musculoskeletal: No: Pain Skin: No Rash Neurologic: No: Weakness Psychiatric: No: Depression Endocrine: No: Polydipsia Hematologic/Lymphatic: No: Easy Bruising Physical Exam Narrative GENERAL: Well-nourished, well-developed patient in no apparent distress. SKIN: Focused skin assessment reveals no rash and nodules. Skin is Warm and dry. HEAD: Atraumatic. Normocephalic. EYES: Pupils equal and round. No scleral icterus. No injection or drainage. ENT: No nasal bleeding or discharge. Mucous membranes pink and moist. NECK: Trachea midline. No JVD. CARDIOVASCULAR: Regular rate and rhythm. No murmur appreciated. RESPIRATORY: No accessory muscle use. Clear to auscultation. Breath sounds equal bilaterally. GASTROINTESTINAL: Abdomen soft, non-tender, nondistended. Hepatic and splenic margins not palpable. MUSCULOSKELETAL: No obvious deformities. No clubbing. No cyanosis. No edema. Has a Vas-Cath in his right upper chest. NEUROLOGICAL: Awake and alert. No obvious cranial nerve deficits. Motor grossly within normal limits. Normal speech. PSYCHIATRIC: Appropriate mood and affect; insight and judgment normal. Data Data Last Documented VS Vital Signs Date Time Temp Pulse Resp B/P (MAP) Pulse Ox O2 Delivery O2 Flow Rate FiO2 11/18/17:18 98 18 168/94 (118) 98 11/18/17 07:24 97.9 Orders Orders Nifedipine (Procardia) (11/18/17 07:45) Blood Flow Rate (11/18/17 08:46) Dialysate Flow Rate (11/18/17 08:46) Dialyzer (11/18/17 08:46) Concentrate (11/18/17 08:46) Acid Concentrate (11/18/17 08:46) Length Of Dialysis (11/18/17 08:46) Frequency Of Dialysis (11/18/17 08:46) Dialysis Obtain (11/18/17 08:46) Dialysis Schedule (11/18/17 08:46) Resp Oxygen Noah C Titrat 1-4 L (11/18/17 ) Dialysis Weight (11/18/17 08:46) ^ Obtain As Needed (11/18/17 08:46) Sodium Chlor 0.9% 1000 Ml Inj (Ns 1000 M (11/18/17 08:46) Heparin Inj (Heparin Inj) (11/18/17 09:00) Sodium Chlor 0.9% 1000 Ml Inj (Ns 1000 M (11/18/17 08:46) Sodium Chlor 0.9% 1000 Ml Inj (Ns 1000 M (11/18/17 08:46) Mannitol Inj (Mannitol Inj) (11/18/17 09:00) Albumin 25% Inj (Albumin 25% Inj) (11/18/17 09:00) Sodium Chloride 0.9% Flush (Ns Flush) (11/18/17 09:00) Heparin Inj (Heparin Inj) (11/18/17 09:00) Gentamicin Inj (Gentamicin Inj) (11/18/17 09:00) Ondansetron Inj (Zofran Inj) (11/18/17 09:00) Acetaminophen (Tylenol) (11/18/17 09:00) Diphenhydramine (Benadryl) (11/18/17 09:00) Nitroglycerin Sl (Nitrostat Sl) (11/18/17 09:00) Clonidine (Catapres) (11/18/17 09:00) Epoetin Luis Miguel Inj (Epogen Inj) (11/18/17 09:00) Gelatin 12 Mm/7 Mm Top (Gelfoam 12 Mm/7 (11/18/17 09:00) MDM Medical Decision Making Medical Screen Exam Complete: Yes Emergency Medical Condition: Yes Medical Record Reviewed: Yes Differential Diagnosis Uncontrolled hypertension, end-stage renal disease, lack of follow-up Narrative Course I have reviewed the patient's electronic medical record. Reviewed his visit from 3 days ago. Reviewed nephrology consultation Patient has accelerated and uncontrolled hypertension He is neurologically intact Gave him a dose of Procardia 20 mg and will reassess pressure Placed a call to Dr Elise who has dialyzed him on multiple occasions. He refused to discuss the case and insisted I discussed with Dr. Cardoza. apparently the president which has been set here is the on-call lab specialist will be responsible for dialyzing him when he shows up twice weekly Patient is currently in dialysis. I anticipate he will be stable for discharge upon return Diagnosis Primary Impression: ESRD (end stage renal disease) on dialysis Additional Impressions: IDDM (insulin dependent diabetes mellitus) HTN (hypertension) Qualified Codes: I15.0 - Renovascular hypertension Additional Instructions: Check and record blood pressure daily Follow-up with primary care physician and lab specialist Med/Other Pt SpecificInfo: Other Disposition: 01 DISCHARGE HOME Condition: Stable Manpreet Colbert MD Nov 18, 2017 07:45
[2017-11-18 08:15] VITALS: BP 209/125
[2017-11-18] MEDS ORDERED: SODIUM CHLOR 0.9% 1000 ML INJ 1,000 ML OTHER PRN ×2 (08:46)
[2017-11-18] MEDS ORDERED: SODIUM CHLOR 0.9% 1000 ML INJ 1,000 ML IV PRN (08:46)
[2017-11-18] MEDS ORDERED: NITROGLYCERIN 0.4 MG SL 25 TABS/BTL SL PRN (09:00)
[2017-11-18] MEDS ORDERED: HEPARIN SODIUM - IV 10,000 UNITS/10 ML VIAL PRN (09:00)
[2017-11-18] MEDS ORDERED: EPOETIN ALFA 10,000 UNITS/ML VIAL IV PUSH PRN (09:00)
[2017-11-18] MEDS ORDERED: cloNIDine HCL 0.1 MG TAB PO PRN (09:00)
[2017-11-18] MEDS ORDERED: ALBUMIN 25% INJ 100 ML IV PRN (09:00)
[2017-11-18] MEDS ORDERED: SODIUM CHLORIDE 0.9% FLUSH 10 ML FLUSH IV FLUSH PRN (09:00)
[2017-11-18] MEDS ORDERED: GENTAMICIN SULFATE 20 MG/2 ML VIAL OTHER PRN (09:00)
[2017-11-18] MEDS ORDERED: ONDANSETRON HCL 4 MG/2 ML VIAL IV PUSH PRN (09:00)
[2017-11-18] MEDS ORDERED: HEPARIN SODIUM - IV 10,000 UNITS/10 ML VIAL IV FLUSH PRN (09:00)
[2017-11-18] MEDS ORDERED: diphenhydrAMINE HCL 25 MG CAP PO PRN (09:00)
[2017-11-18] MEDS ORDERED: ACETAMINOPHEN 325 MG TAB PO PRN (09:00)
[2017-11-18] MEDS ORDERED: GELATIN 12 MM/7 MM FOAM TOP PRN (09:00)
[2017-11-18] MEDS ORDERED: MANNITOL 12.5 GM/50 ML VIAL IV PRN (09:00)
[2017-11-18 09:18] VITALS: BP 168/94; PULSE 98; RESP 18; O2SAT 98
--- NOTE | 2017-11-18 14:52 | PD.CONS ---
HPI Service Nephrology Consult Requested By Dr. Colbert Reason for Consult ESRD Primary Care Physician No Primary Care Physician History of Present Illness Patient is a 27-year-old male known to with a past medical history of uncontrolled hypertension, ESRD with HD, diabetic, and anemia. He came to the hospital because he needs to have dialysis. Patient is originally from [place] but moved [place] this [place]. Patient has been here multiple times. Current arrangement is to come to the emergency room on every Mondays and to get dialyzed. He was started on dialysis by Dr. Elise. Review of Systems Constitutional: COMPLAINS OF: Fatigue Past Family Social History Allergies: Coded Allergies: No Known Allergies (Unverified Allergy, Unknown, 11/18/17) Past Medical History DIABETES Hypertension Anemia ESRD Non compliance Past Surgical History PermCath Kidney Biopsy Reported Medications Reported Meds & Active Scripts Active Novolin 70-30 Inj (Insulin Human Isoph/Insulin Regular) 1,000 Unit/10 Ml Vial 18 Units SQ BID@08,17 30 Days Lopressor (Metoprolol Tartrate) 50 Mg Tab 100 Mg PO Q12HR 30 Days Calcium Acetate (Calcium Acetate (Phosphate Bin) 667 Mg Cap 667 Mg PO TID 30 Days Cozaar (Losartan Potassium) 25 Mg Tab 25 Mg PO DAILY 30 Days Lopressor (Metoprolol Tartrate) 50 Mg Tab 50 Mg PO Q12HR 30 Days Hydralazine HCl 50 Mg Tablet 50 Mg PO Q6H 30 Days Furosemide 40 Mg Tab 60 Mg PO BID 30 Days Amlodipine (Amlodipine Besylate) 10 Mg Tab 10 Mg PO DAILY 30 Days Novolin 70-30 Inj (Insulin Human Isoph/Insulin Regular) 1,000 Unit/10 Ml Vial 30 Units SQ AM 15UNITS PM 30 Days take 30 units in am and take 15 units in pm Catapres (Clonidine) 0.1 Mg Tab 0.1 Mg PO Q6HR PRN 30 Days Pantoprazole (Pantoprazole Sodium) 40 Mg Tab 40 Mg PO DAILY Folic Acid 0.4 Mg Tab 400 Mcg PO DAILY Social History denies smoking/ETOH Physical Exam Vital Signs Vital Signs Date Time Temp Pulse Resp B/P (MAP) Pulse Ox O2 Delivery O2 Flow Rate FiO2 11/18/17 09:18 98 18 168/94 (118) 98 11/18/17 08:15 209/125 (153) 11/18/17 07:24 97.9 102 18 206/123 (724) 97 Physical Exam GENERAL: Well-nourished, well-developed patient. SKIN: Warm and dry. HEAD: Normocephalic. EYES: No scleral icterus. No injection or drainage. NECK: Supple, trachea midline. No JVD or lymphadenopathy. CARDIOVASCULAR: Regular rate and rhythm without murmurs, gallops, or rubs. RESPIRATORY: Breath sounds equal bilaterally. No accessory muscle use. GASTROINTESTINAL: Abdomen soft, non-tender, nondistended. EXTREMITIES: No cyanosis, or edema.PermCath in place. NEUROLOGICAL: Awake, alert, and oriented x 3. Non-focal. Assessment and Plan Problem List: (1) ESRD (end stage renal disease) on dialysis ICD Codes: N18.6 - End stage renal disease; Z99.2 - Dependence on renal dialysis Plan: I have seen him and provided oversight on dialysis as Dr. Elise has refused to follow Patient is from [place] He has not achieved permanent residency in I was told by Dr. Elise an emergency that whoever is on-call should take care of this patient and hence I provided him with hemodialysis as he comes on I discussed with him his blood pressure is high last blood pressure was 140/100 he takes several medications and would do not recall the name Control of diabetes discussed He is advised to carry a list of his medications and his wallet Patient will be discharged after dialysis today, he has no local physician. His dialysis proceeding with noted 4 L of fluid will be taken off. (2) HTN (hypertension) ICD Codes: I10 - Essential (primary) hypertension Plan: As above (3) IDDM (insulin dependent diabetes mellitus) ICD Codes: E11.9 - Type 2 diabetes mellitus without complications; Z79.4 - FCI (current) use of insulin Status: Chronic Problem Qualifiers (1) HTN (hypertension): Qualified Codes: I10 - Essential (primary) hypertension Dereck Cardoza MD Nov 18, 2017 14:52
== END 2017-11-18 15:56 | disposition home or self-care (01) ==
LOC: NEPC 06:46 → NEDAMB 15:56
DX: I12.0 Hypertensive chronic kidney disease with stage 5 chronic kidney disease or end stage renal disease (principal); E11.22 Type 2 diabetes mellitus with diabetic chronic kidney disease; N18.6 End stage renal disease; Z99.2 Dependence on renal dialysis; Z79.4 Long term (current) use of insulin
CPT/HCPCS: 90935; 96374; 96375; 99283; G0257

== ENCOUNTER 2018-06-28 07:31 | Inpatient (IN) ==
[2018-06-28] MEDS ORDERED: hydrALAZINE 25 MG Tablet PO ONE (08:08)
--- NOTE | 2018-06-28 08:15 | ED ---
HPI General Chief complaint: Eye Problems Stated complaint: Eye Complaint Time Seen by Provider: 06/28/18 07:55 Source: patient and old records reviewed Mode of arrival: ambulatory Limitations: no limitations History of Present Illness HPI Narrative: The patient is a 28-year-old male with a complicated medical history that includes end-stage renal disease on dialysis Wednesday, persistent hypertension, diabetes type 2 poorly controlled initially subsequent visual problems. For all months. Was sent in by Dr. Yanes ophthalmology for admission today due to retinal detachment and surgical intervention. Patient dialyzed yesterday without any problems. On arrival his blood pressure was 220/136. He has blurry vision. No new complaints. He is on amlodipine hydralazine and metoprolol which states he takes as prescribed. chief complaint: Reports vision change Onset (ago): month(s) Onset description: gradual Duration: constant and progressively worsening Location: Reports both eyes (Right worse than the left) Eye Symptoms: Reports decreased vision and blurry vision Related Data Home Medications Medication Instructions Recorded Confirmed clonidine HCl 0.3 mg PO TID 06/28/18 06/28/18 folic acid 0.4 mg PO DAILY 06/28/18 06/28/18 hydralazine 100 mg PO TID 06/28/18 06/28/18 insulin glargine [Lantus U-100 12 unit SUBCUT BID 06/28/18 06/28/18 Insulin] insulin lispro [Humalog U-100 8 unit SUBCUT TID 06/28/18 06/28/18 Insulin] minoxidil 10 mg PO BID 06/28/18 06/28/18 Allergies Allergy/AdvReac Type Severity Reaction Status Date / Time No Known Allergies Allergy Unverified 06/28/18 07:59 Review of Systems ROS: all other systems reviewed are negative Eyes Reports blurry vision and Reports change in vision [facility] Medical History Medical History Diabetes (Acute) End stage chronic kidney disease (Acute) HBP (high blood pressure) (Acute) Surgical History Surgical History Hx of cholecystectomy (Acute) Social History Social History Substance History: No History of Abuse Second Hand Smoke Exposure: No Smoking Status: Never smoker How Often Do You Have a Drink Containing Alcohol: Never Recent Travel in [facility] within the Last 8 Weeks: No Recent Out of Country Travel within the Last 8 Weeks: No Immunization History Tetanus Immunization: >5 Years Exam Narrative Exam Narrative: GENERAL: Alert and oriented in no distress SKIN: Focused skin assessment warm/dry. HEAD: Atraumatic. Normocephalic. ENT: No nasal bleeding or discharge. Mucous membranes pink and moist. NECK: Trachea midline. No JVD. CARDIOVASCULAR: Regular rate and rhythm. No murmur appreciated. RESPIRATORY: No accessory muscle use. Clear to auscultation. Breath sounds equal bilaterally. GASTROINTESTINAL: Abdomen soft, non-tender, nondistended. Hepatic and splenic margins not palpable. MUSCULOSKELETAL: No obvious deformities. No clubbing. No cyanosis. No edema. NEUROLOGICAL: Awake and alert. No obvious cranial nerve deficits. Motor grossly within normal limits. Normal speech. PSYCHIATRIC: Appropriate mood and affect; insight and judgment normal. Eyes General: appearance normal, both eyes and all related structures EOM: EOM intact bilaterally Direct ophthalmoscopy: abnormal light reflex and retinal abnormality bilaterally Other: Unable to fully visualize posterior chamber. Retina appears davis. Course Consultations Consultation #1: and was admitted for further evaluation and treatment.Discussed with nurse manager business systems for Dr. Deshpande's office. They will be setting him up for surgery later on today. search marketing coordinator to fax information. Accelerated hypertension improved after he was placed on Cardene drip. Findings and presentation discussed with his social welfare research worker nurse who stated that the patient was to be admitted for surgical intervention. Patient was kept n.p.o.. Hyperkalemia was noted and treated with small dose of insulin since he was hyperglycemic no peaked T waves on EKG. Hemodynamically stable. Time: 08:16 Initial Documented Vital Signs Temperature 98.2 F 06/28/18 07:38 Pulse Rate 89 06/28/18 07:38 Blood Pressure 220/136 H 06/28/18 07:38 Pulse Oximetry 100 06/28/18 07:38 Last Documented Vital Signs Temperature 97.7 F 06/28/18 11:10 Pulse Rate 89 06/28/18 11:10 Respiratory Rate 16 06/28/18 11:10 Blood Pressure 131/82 06/28/18 11:10 Pulse Oximetry 98 06/28/18 11:10 Critical Care Time Critical Care Time: Yes Total Critical Care Time: 30 Attestation: Aggregate critical care time was Papandreou minutes. Time to perform other separately billable procedures was not included in the critical care time. My time did not include minutes spent treating any other patients simultaneously or on activities that did not directly contribute to the patient's treatment. The services I provided to this patient were to treat and/or prevent clinically significant deterioration that could result in: I provided critical care services requiring my management, as noted below: Chart data review, documentation time, medication orders and management, vital sign assessments/reviewing monitor data, ordering and reviewing lab tests, ordering and interpreting/reviewing x-rays and diagnostic studies, care of the patient and discussion of the patient with the admitting physicians. Medical Decision Making MDM Narrative Medical decision making narrative: Patient with multiple electrolyte abnormalities consistent with end-stage renal disease. No imaging necessary at this time as the patient has the diagnosis of retinal detachment per ophthalmology. He is to be admitted placed n.p.o. and have intervention by ophthalmology. Persistent hypertension improved when he was placed on a Cardene drip. No signs of acute ischemia. Afebrile not appearing toxic alert and oriented without new focal neurologic deficits. Medical Screen Exam Complete: Yes Emergency Medical Condition: Yes Medical Records Medical records reviewed: Yes I reviewed the patient's medical records. Lab Data Lab results reviewed: Yes I reviewed the patient's lab results. Result diagrams: 06/28/18 08:00 06/28/18 08:00 Lab Results 06/28/18 06/28/18 06/28/18 Range/Units 08:00 08:00 08:08 WBC 9.9 (4.0-11.0) th/mm3 RBC 5.98 H (4.50-5.90) mil/mm3 Hgb 13.9 (13.0-17.0) gm/dL Hct 43.5 (39.0-51.0) % MCV 72.7 L (80.0-100.0) fL MCH 23.2 L (27.0-34.0) pg MCHC 32.0 (32.0-36.0) % RDW 33.7 H (11.6-17.2) % Plt Count 264 (150-450) th/mm3 MPV 8.6 (7.0-11.0) fL Prelim Diff (Auto) Slide review pending Neut % (Auto) 71.9 H (16.0-70.0) % Lymph % (Auto) 14.3 (9.0-44.0) % [place] % (Auto) 8.4 H (0.0-8.0) % Eos % (Auto) 4.5 H (0.0-4.0) % Baso % (Auto) 0.9 (0.0-2.0) % Neut # (Auto) 7.2 (1.8-7.7) th/mm3 Lymph # (Auto) 1.4 (1.0-4.8) th/mm3 [place] # (Auto) 0.8 (0.0-0.9) th/mm3 Eos # (Auto) 0.4 (0.0-0.4) th/mm3 Baso # (Auto) 0.1 (0.0-0.2) th/mm3 WBC Differential . Diff Scan Auto diff confirmed Differential Comment . Platelet Estimate Normal (Normal) Platelet Morphology Normal (Normal) Dimorphic RBCs Present H (None) Ovalocytes 2+ H (None) Acanthocytes (Spur) 1+ H (None) PT (9.8-11.6) sec INR Ratio APTT (24.3-30.1) sec Puncture Site Right radial Patient Temperature 98.6 O2 Saturation 92 (90-100) % ABG pH 7.44 H (7.380-7.420) ABG pCO2 38 (38-42) mmHg ABG pO2 76 (61-120) mmHg ABG HCO3 25 (22-26) mmol/L ABG O2 Content 17.5 (12.0-20.0) Vol % ABG Base Excess 1.4 (-2-2) mmol/L ABG Methemoglobin 0.8 (0-2) % Joseph Test Present Hemoglobin 13.5 (12.0-16.0) G/DL Carboxyhemoglobin 3.0 (0-4) % Inspired O2 21 % Critical Value No Sodium 133 L (136-145) meq/L Potassium 6.0 H (3.5-5.1) meq/L Chloride 95 L (98-107) meq/L Carbon Dioxide 25.7 (21.0-32.0) meq/L Anion Gap 12 (5-15) meq/L BUN 67 H (7-18) mg/dL Creatinine 8.82 H (0.60-1.30) mg/dL Estimated GFR 9 L (>89) mL/min POC Glucose (68-110) mg/dl Random Glucose 283 H (74-106) mg/dL Calcium 8.7 (8.5-10.1) mg/dL Phosphorus 4.0 (2.5-4.9) mg/dL Magnesium 2.3 (1.5-2.5) mg/dL Total Bilirubin 1.3 H (0.2-1.0) mg/dL AST 48 H (15-37) U/L ALT 25 (12-78) U/L Alkaline Phosphatase 130 H (45-117) U/L Total Protein 7.3 (6.4-8.2) g/dL Albumin 3.2 L (3.4-5.0) g/dL Beta-Hydroxybutyric Acd 0.19 (0.00-0.39) mmol/L 06/28/18 06/28/18 06/28/18 Range/Units 08:09 08:20 11:11 WBC (4.0-11.0) th/mm3 RBC (4.50-5.90) mil/mm3 Hgb (13.0-17.0) gm/dL Hct (39.0-51.0) % MCV (80.0-100.0) fL MCH (27.0-34.0) pg MCHC (32.0-36.0) % RDW (11.6-17.2) % Plt Count (150-450) th/mm3 MPV (7.0-11.0) fL Prelim Diff (Auto) Neut % (Auto) (16.0-70.0) % Lymph % (Auto) (9.0-44.0) % [place] % (Auto) (0.0-8.0) % Eos % (Auto) (0.0-4.0) % Baso % (Auto) (0.0-2.0) % Neut # (Auto) (1.8-7.7) th/mm3 Lymph # (Auto) (1.0-4.8) th/mm3 [place] # (Auto) (0.0-0.9) th/mm3 Eos # (Auto) (0.0-0.4) th/mm3 Baso # (Auto) (0.0-0.2) th/mm3 WBC Differential Diff Scan Differential Comment Platelet Estimate (Normal) Platelet Morphology (Normal) Dimorphic RBCs (None) Ovalocytes (None) Acanthocytes (Spur) (None) PT 10.7 (9.8-11.6) sec INR 1.1 Ratio APTT 23.0 L (24.3-30.1) sec Puncture Site Patient Temperature O2 Saturation (90-100) % ABG pH (7.380-7.420) ABG pCO2 (38-42) mmHg ABG pO2 (61-120) mmHg ABG HCO3 (22-26) mmol/L ABG O2 Content (12.0-20.0) Vol % ABG Base Excess (-2-2) mmol/L ABG Methemoglobin (0-2) % Joseph Test Hemoglobin (12.0-16.0) G/DL Carboxyhemoglobin (0-4) % Inspired O2 % Critical Value Sodium (136-145) meq/L Potassium (3.5-5.1) meq/L Chloride (98-107) meq/L Carbon Dioxide (21.0-32.0) meq/L Anion Gap (5-15) meq/L BUN (7-18) mg/dL Creatinine (0.60-1.30) mg/dL Estimated GFR (>89) mL/min POC Glucose 281 H 216 H (68-110) mg/dl Random Glucose (74-106) mg/dL Calcium (8.5-10.1) mg/dL Phosphorus (2.5-4.9) mg/dL Magnesium (1.5-2.5) mg/dL Total Bilirubin (0.2-1.0) mg/dL AST (15-37) U/L ALT (12-78) U/L Alkaline Phosphatase (45-117) U/L Total Protein (6.4-8.2) g/dL Albumin (3.4-5.0) g/dL Beta-Hydroxybutyric Acd (0.00-0.39) mmol/L 06/28/18 Range/Units 13:57 WBC (4.0-11.0) th/mm3 RBC (4.50-5.90) mil/mm3 Hgb (13.0-17.0) gm/dL Hct (39.0-51.0) % MCV (80.0-100.0) fL MCH (27.0-34.0) pg MCHC (32.0-36.0) % RDW (11.6-17.2) % Plt Count (150-450) th/mm3 MPV (7.0-11.0) fL Prelim Diff (Auto) Neut % (Auto) (16.0-70.0) % Lymph % (Auto) (9.0-44.0) % [place] % (Auto) (0.0-8.0) % Eos % (Auto) (0.0-4.0) % Baso % (Auto) (0.0-2.0) % Neut # (Auto) (1.8-7.7) th/mm3 Lymph # (Auto) (1.0-4.8) th/mm3 [place] # (Auto) (0.0-0.9) th/mm3 Eos # (Auto) (0.0-0.4) th/mm3 Baso # (Auto) (0.0-0.2) th/mm3 WBC Differential Diff Scan Differential Comment Platelet Estimate (Normal) Platelet Morphology (Normal) Dimorphic RBCs (None) Ovalocytes (None) Acanthocytes (Spur) (None) PT (9.8-11.6) sec INR Ratio APTT (24.3-30.1) sec Puncture Site Patient Temperature O2 Saturation (90-100) % ABG pH (7.380-7.420) ABG pCO2 (38-42) mmHg ABG pO2 (61-120) mmHg ABG HCO3 (22-26) mmol/L ABG O2 Content (12.0-20.0) Vol % ABG Base Excess (-2-2) mmol/L ABG Methemoglobin (0-2) % Joseph Test Hemoglobin (12.0-16.0) G/DL Carboxyhemoglobin (0-4) % Inspired O2 % Critical Value Sodium (136-145) meq/L Potassium (3.5-5.1) meq/L Chloride (98-107) meq/L Carbon Dioxide (21.0-32.0) meq/L Anion Gap (5-15) meq/L BUN (7-18) mg/dL Creatinine (0.60-1.30) mg/dL Estimated GFR (>89) mL/min POC Glucose 90 (68-110) mg/dl Random Glucose (74-106) mg/dL Calcium (8.5-10.1) mg/dL Phosphorus (2.5-4.9) mg/dL Magnesium (1.5-2.5) mg/dL Total Bilirubin (0.2-1.0) mg/dL AST (15-37) U/L ALT (12-78) U/L Alkaline Phosphatase (45-117) U/L Total Protein (6.4-8.2) g/dL Albumin (3.4-5.0) g/dL Beta-Hydroxybutyric Acd (0.00-0.39) mmol/L ECG Data Attestation: I personally reviewed and interpreted this ECG as follows: Interpretation: Normal sinus rhythm 80 bpm. Left atrial enlargement. AR interval 141 ms. QTc 429. Normal axis. Nonspecific ST-T wave abnormalities. Morphology unchanged from previous EKG with the exception of J-point elevation in V3. Discharge Plan Discharge Disposition Patient Disposition: 30 Still Patient Discharge Condition Condition: Fair Discharge Details Diagnosis: Retinal detachment Physicians Team ED Provider: Bijan Jauregui Primary Care Provider: Primary Care Mariela Lanza Attending Provider: Yamel Shell Other Providers: Dereck Cardoza ; Shad Yanes Discharge Interventions Interventions: ED Discharge Assessment Last Done: 06/28/18 11:40 Status ED Status: Left Department Discharge Information Discharge Date/Time: 06/28/18 11:45
[2018-06-28 08:33] LABS: ABG Base Excess 1.4 mmol/L (-2-2); ABG PCO2 38 mmHg (38-42); ABG PO2 76 mmHg (61-120)
[2018-06-28 08:39] LABS: Baso # (Auto) 0.1 th/mm3 (0.0-0.2); Baso % (Auto) 0.9 % (0.0-2.0); Eos # (Auto) 0.4 th/mm3 (0.0-0.4); Eos % (Auto) 4.5 % (0.0-4.0); Hematocrit 43.5 % (39.0-51.0); Hemoglobin 13.9 gm/dL (13.0-17.0); Lymph # (Auto) 1.4 th/mm3 (1.0-4.8); Lymph % (Auto) 14.3 % (9.0-44.0); Mean Corpuscular Hemoglobin 23.2 pg (27.0-34.0); Mean Corpuscular Volume 72.7 fL (80.0-100.0); Mean Platelet Volume 8.6 fL (7.0-11.0); Mono # (Auto) 0.8 th/mm3 (0.0-0.9); Mono % (Auto) 8.4 % (0.0-8.0); Neut # (Auto) 7.2 th/mm3 (1.8-7.7); Neut % (Auto) 71.9 % (16.0-70.0); Platelet Count 264 th/mm3 (150-450); Red Blood Count 5.98 mil/mm3 (4.50-5.90); Red Cell Distribution Width 33.7 % (11.6-17.2); White Blood Count 9.9 th/mm3 (4.0-11.0)
[2018-06-28] MEDS ORDERED: Metoprolol Inj 5 MG/5 ML Vial IV.PUSH ONE (08:51)
[2018-06-28 08:52] LABS: Alkaline Phosphatase 130 U/L (45-117); Beta Hydroxybutyric Acid 0.19 mmol/L (0.00-0.39); Total Protein 7.3 g/dL (6.4-8.2)
[2018-06-28 08:57] LABS: Alanine Aminotransferase 25 U/L (12-78); Albumin 3.2 g/dL (3.4-5.0); Anion Gap 12 meq/L (5-15); Aspartate Aminotransferase 48 U/L (15-37); Blood Urea Nitrogen 67 mg/dL (7-18); Calcium 8.7 mg/dL (8.5-10.1); Carbon Dioxide 25.7 meq/L (21.0-32.0); Chloride 95 meq/L (98-107); Glomerular Filtration Rate 9 mL/min (>89); Glucose,Random 283 mg/dL (74-106); Magnesium 2.3 mg/dL (1.5-2.5); Sodium 133 meq/L (136-145)
[2018-06-28 09:38] LABS: Acanthocytes 1+; Ovalocytes 2+
[2018-06-28 09:39] LABS: Dimorphic RBC Present; Platelet Estimate Normal (Normal); Platelet Morphology Normal (Normal)
[2018-06-28 10:02] LABS: INR 1.1 Ratio; Prothrombin Time 10.7 sec (9.8-11.6)
[2018-06-28] MEDS: niCARdipine Inj 25 MG in Sodium Chlor 0.9% Inj 240 ML IV.CONT PRN ×4 (10:08→23:56)
[2018-06-28] MEDS ORDERED: Bisacodyl 10 MG Supp RECTAL PRN (10:46)
--- NOTE | 2018-06-28 11:50 | P.HP ---
History of Present Illness Primary Care Physician: No Primary Care Physician Chief Complaint: blindness both eyes, getting progressively worse History of Present Illness: Mr. Cancino is a very pleasant 28 year old male with a history of end-stage renal disease on dialysis on Wednesday, Wednesday, Wednesday, IDDM, and hypertension who presented to the ED being sent by his ophthalmology Dr. for retinal detachment. The patient reports having blurry vision that came and went for the last 3 weeks, but noted that his vision progressively worsened over the past last week. He saw his applied anthropologist, Dr Yanes, who told him to go the ER. Patient reports that he can see movement, but no shapes or colors. The patient had a blood pressure of 231/133 upon arriving to the ED. The O patient was placed on Cardene drip and blood pressure is better controlled at this time, Cardene drip is weaned off. Restarted blood pressure medications as appropriate. Denies motor or sensory deficit. Denies headaches. Denies any chest pain or shortness of breath. no palpitations. No cough, fever or chills. He is saturating well on room air. Had HD yesterday. Inpatient Certification: I certify that the inpatient services were ordered in accordance with Medicare regulations governing the order. This includes certification that hospital inpatient services are reasonable and necessary and in the case of services not specified as inpatient-only under 42 CFR 419.22(n), that they are appropriately provided as inpatient services in accordance to with the 2-midnight benchmark under 43 CFR 412.3(e) Estimated Total Length of Stay (Days): 3 Plans for Post Hospital Care: Home Review of Systems All other systems reviewed negative except as stated in HPI PMFSH - History History Provided By: Patient, Family Member - Medical History Medical History: Medical History (Last Reviewed 06/28/18 @ 15:05 by Yamel Shell MD) Diabetes End stage chronic kidney disease HBP (high blood pressure) - Surgical History Surgical History: Surgical History (Last Reviewed 06/28/18 @ 15:05 by Yamel Shell MD) Hx of cholecystectomy - Family History Family History: Family History (Last Updated 06/28/18 @ 15:05 by Yamel Shell MD) Other No pertinent family history - Tobacco History Second Hand Smoke Exposure: No Smoking Status: Never smoker - Alcohol History How Often Do You Have a Drink Containing Alcohol: Never - Substance Use History Substance History: No History of Abuse - Travel History Recent Travel in the [place] Within the Last 8 Weeks: No Recent Travel Out of the Country Within the Last 8 Weeks: No - Immunization History Tetanus Immunization: >5 Years Medications and Allergies Active Medications: Active Medications Acetaminophen (Tylenol) 650 mg PO Q4H PRN PRN Reason: Temp > 100.4 Al Hydroxide/Mg Hydroxide (Milk Of Magnesia Liq) 30 ml PO Q12H PRN PRN Reason: Mild Constipation Bisacodyl (Dulcolax Supp) 10 mg RECTAL DAILY PRN PRN Reason: SEVERE CONSITIPATION Clonidine HCl (Catapres) 0.3 mg PO TID [facility] Hydralazine HCl (Apresoline) 100 mg PO TID [facility] Nicardipine HCl 25 mg/ Sodium (Chloride) 250 mls @ 50 mls/hr IV.CONT TITRATE PRN; Protocol PRN Reason: Per Protocol Last Titration: 06/28/18 10:42 Dose: 9 mg/hr, 90 mls/hr Insulin Aspart (Novolog Insulin Correctional Sugar Inj) 8 unit SQ TID [facility] Insulin Detemir (Levemir Inj) 12 unit SQ BID [facility] Lactulose (Lactulose Liq) 30 ml PO DAILY PRN PRN Reason: SEVERE CONSITIPATION Ondansetron HCl (Zofran Inj) 4 mg IV.PUSH Q6H PRN PRN Reason: NAUSEA OR VOMITING Senna/Docusate Sodium (Eulalia-Colace) 1 tab PO BID [facility] Sennosides (Senokot) 17.2 mg PO Q12H PRN PRN Reason: Moderate Constipation Allergies Allergy/AdvReac Type Severity Reaction Status Date / Time No Known Allergies Allergy Unverified 06/28/18 07:59 Home Medications Medication Instructions Recorded Confirmed Type clonidine HCl 0.3 mg PO TID 06/28/18 06/28/18 History folic acid 0.4 mg PO DAILY 06/28/18 06/28/18 History hydralazine 100 mg PO TID 06/28/18 06/28/18 History insulin glargine [Lantus U-100 12 unit SUBCUT BID 06/28/18 06/28/18 History Insulin] insulin lispro [Humalog U-100 8 unit SUBCUT TID 06/28/18 06/28/18 History Insulin] minoxidil 10 mg PO BID 06/28/18 06/28/18 History Exam Vital signs: Vital Signs 06/28/18 07:38 06/28/18 08:51 06/28/18 09:41 Temperature 98.2 F 97.7 F Pulse Rate 89 87 82 Respiratory Rate 16 Blood Pressure 220/136 H 231/133 H 219/130 H Pulse Oximetry 100 98 06/28/18 10:46 06/28/18 11:10 Temperature 97.8 F 97.7 F Pulse Rate 87 89 Respiratory Rate 16 16 Blood Pressure 132/81 131/82 Pulse Oximetry 97 98 Intake & Output 06/27/18 06/28/18 06/28/18 18:59 06:59 18:59 Weight 61.235 kg Narrative: GENERAL: Young very pleasant 28-year-old AA male, in bed appears to not acute distress. SKIN: Warm and dry. HEAD: Atraumatic. Normocephalic. EYES: Pupils equal and round. No scleral icterus. No injection or drainage. EOMI. Blindness both eyes. ENT: No nasal bleeding or discharge. Mucous membranes pink and moist. NECK: Trachea midline. No JVD. CARDIOVASCULAR: Regular rate and rhythm. RESPIRATORY: No accessory muscle use. Clear to auscultation. Breath sounds equal bilaterally. GASTROINTESTINAL: Abdomen soft, non-tender, nondistended. Hepatic and splenic margins not palpable. MUSCULOSKELETAL: Extremities without clubbing, cyanosis, or edema. No obvious deformities. NEUROLOGICAL: Awake and alert. No obvious cranial nerve deficits except CN2. Motor grossly within normal limits. Five out of 5 muscle strength in the arms and legs. Normal speech. PSYCHIATRIC: Appropriate mood and affect; insight and judgment normal. Results - Labs CBC & Chem 7: 06/28/18 08:00 06/28/18 08:00 Labs: Laboratory Results - last 24 hr 06/28/18 06/28/18 06/28/18 08:00 08:00 08:08 WBC 9.9 RBC 5.98 H Hgb 13.9 Hct 43.5 MCV 72.7 L MCH 23.2 L MCHC 32.0 RDW 33.7 H Plt Count 264 MPV 8.6 Prelim Diff (Auto) Slide review pending Neut % (Auto) 71.9 H Lymph % (Auto) 14.3 [place] % (Auto) 8.4 H Eos % (Auto) 4.5 H Baso % (Auto) 0.9 Neut # (Auto) 7.2 Lymph # (Auto) 1.4 [place] # (Auto) 0.8 Eos # (Auto) 0.4 Baso # (Auto) 0.1 WBC Differential . Diff Scan Auto diff confirmed Differential Comment . Platelet Estimate Normal Platelet Morphology Normal Dimorphic RBCs Present H Ovalocytes 2+ H Acanthocytes (Spur) 1+ H PT INR APTT Puncture Site Right radial Patient Temperature 98.6 O2 Saturation 92 ABG pH 7.44 H ABG pCO2 38 ABG pO2 76 ABG HCO3 25 ABG O2 Content 17.5 ABG Base Excess 1.4 ABG Methemoglobin 0.8 Joseph Test Present Hemoglobin 13.5 Carboxyhemoglobin 3.0 Inspired O2 21 Critical Value No Sodium 133 L Potassium 6.0 H Chloride 95 L Carbon Dioxide 25.7 Anion Gap 12 BUN 67 H Creatinine 8.82 H Estimated GFR 9 L POC Glucose Random Glucose 283 H Calcium 8.7 Phosphorus 4.0 Magnesium 2.3 Total Bilirubin 1.3 H AST 48 H ALT 25 Alkaline Phosphatase 130 H Total Protein 7.3 Albumin 3.2 L Beta-Hydroxybutyric Acd 0.19 06/28/18 06/28/18 06/28/18 08:09 08:20 11:11 WBC RBC Hgb Hct MCV MCH MCHC RDW Plt Count MPV Prelim Diff (Auto) Neut % (Auto) Lymph % (Auto) [place] % (Auto) Eos % (Auto) Baso % (Auto) Neut # (Auto) Lymph # (Auto) [place] # (Auto) Eos # (Auto) Baso # (Auto) WBC Differential Diff Scan Differential Comment Platelet Estimate Platelet Morphology Dimorphic RBCs Ovalocytes Acanthocytes (Spur) PT 10.7 INR 1.1 APTT 23.0 L Puncture Site Patient Temperature O2 Saturation ABG pH ABG pCO2 ABG pO2 ABG HCO3 ABG O2 Content ABG Base Excess ABG Methemoglobin Joseph Test Hemoglobin Carboxyhemoglobin Inspired O2 Critical Value Sodium Potassium Chloride Carbon Dioxide Anion Gap BUN Creatinine Estimated GFR POC Glucose 281 H 216 H Random Glucose Calcium Phosphorus Magnesium Total Bilirubin AST ALT Alkaline Phosphatase Total Protein Albumin Beta-Hydroxybutyric Acd Caprini VTE Risk Assessment Caprini VTE Risk Assessment: No/Low Risk (score <= 1) Caprini Risk Assessment Model: Point Value = 1 Point Value = 2 Point Value = 3 Point Value = 5 Age 41-60 Minor surgery BMI > 25 kg/m2 Swollen legs Varicose veins or History of unexplained or recurrent spontaneous Oral contraceptives or hormone replacement Sepsis (< 1 month) Serious lung disease, including pneumonia (< 1 month) Abnormal pulmonary function Acute myocardial infarction Congestive heart failure (< 1 month) History of inflammatory bowel disease Medical patient at bed rest Age 61-74 Arthroscopic surgery Major open surgery (> 45 min) Laparoscopic surgery (> 45 min) Malignancy Confined to bed (> 72 hours) Immobilizing plaster cast Central venous access Age >= 75 History of VTE Family history of VTE Factor V Leiden Prothrombin [id number] Lupus anticoagulant Anticardiolipin antibodies Elevated serum homocysteine Heparin-induced thrombocytopenia Other congenital or acquired thrombophilia Stroke (< 1 month) Elective arthroplasty Hip, pelvis, or leg fracture Acute spinal cord injury (< 1 month) Prophylaxis Regimen: Total Risk Factor Score Risk Level Prophylaxis Regimen 0-1 Low Early ambulation 2 Moderate Order ONE of the following: *Sequential Compression Device (SCD) *Heparin 5000 units SQ BID 3-4 Higher Order ONE of the following medications: *Heparin 5000 units SQ TID *Enoxaparin/Lovenox 40 mg SQ daily (WT < 150 kg, CrCl > 30 mL/min) *Enoxaparin/Lovenox 30 mg SQ daily (WT < 150 kg, CrCl > 10-29 mL/min) *Enoxaparin/Lovenox 30 mg SQ BID (WT < 150 kg, CrCl > 30 mL/min) AND/OR *Sequential Compression Device (SCD) 5 or more Highest Order ONE of the following medications: *Heparin 5000 units SQ TID (Preferred with Epidurals) *Enoxaparin/Lovenox 40 mg SQ daily (WT < 150 kg, CrCl > 30 mL/min) *Enoxaparin/Lovenox 30 mg SQ daily (WT < 150 kg, CrCl > 10-29 mL/min) *Enoxaparin/Lovenox 30 mg SQ BID (WT < 150 kg, CrCl > 30 mL/min) AND *Sequential Compression Device (SCD) Assessment and Plan - Plan Retinal detachment: Consult patient applied anthropologist Dr. Yanes. Spoke with Dr. Yanes, plans for surgery today if BP is controlled Hypertension, poorly controlled. HTN emergency with bilateral vision loss / retinal detachment Started on cardene drip, weaned off as denice. Keep SBP< 140 Restart home meds Vasotec prn IV , Hydralazine PRN Monitor VS clesely Diabetes mellitus, insulin dependent Insulin ESRD with dialysis Wednesday, Wednesday, Wednesday Consult nephrology Kidney indices appears at baseline. Patient has HD yesterday 06/27 Hyperkalemia. will recheck K level, give Kayexalate if still elevated K level. Monitor on telemetry. Will have HD Code Status: Full DVT prophylaxis: early ambulation, SCDs/TEDS, no chemical ppx at this time as plan for surgery Discussed Condition With: patient, family at bedside. Dr Jauregui ER physician, Dr Yanes ophthalmology
[2018-06-28] MEDS ORDERED: DEXTROSE 50% ONE ×2 (12:02→17:54)
[2018-06-28] MEDS ORDERED: WATER ONE ×2 (12:02→17:54)
[2018-06-28] MEDS ORDERED: Bupivacaine PF 0.75% Inj 10 ML Vial ONE (12:04)
[2018-06-28] MEDS ORDERED: Balanced Salt Opth Irrigation 15 APPLIC/15 ML Bottle ONE (12:04)
[2018-06-28] MEDS ORDERED: Tobramycin/Dexamethasone Opth Drops 5 ML Bottle ONE (12:05)
[2018-06-28] MEDS ORDERED: Insulin NovoLOG Aspart Correctional Sugar Inj SQ SCH (13:00)
--- NOTE | 2018-06-28 14:01 | P.HP ---
History of Present Illness Service: Medicine Primary Care Physician: No Primary Care Physician History of Present Illness: Mr. Cancino is a pleasant 28 year old male with a history of end-stage renal disease on dialysis on Wednesday, Wednesday, Wednesday, type 1 diabetes, and hypertension who presented to the ED for vision problems and retinal detachment. Patient reports having blurry vision that came and went for the last 3 weeks, but noted that his vision acutely worsened last week. He saw his electronic equipment set up operator, Dr Yanes, who told him to go the ER. Patient reports that he can see movement, but no shapes or colors. The patient had a blood pressure of 231/133 upon arriving to the ED. The patient will be admitted for surgical intervention. Inpatient Certification: I certify that the inpatient services were ordered in accordance with Medicare regulations governing the order. This includes certification that hospital inpatient services are reasonable and necessary and in the case of services not specified as inpatient-only under 42 CFR 419.22(n), that they are appropriately provided as inpatient services in accordance to with the 2-midnight benchmark under 43 CFR 412.3(e) Estimated Total Length of Stay (Days): 3 Plans for Post Hospital Care: Home Review of Systems All other systems reviewed negative except as stated in HPI PMFSH - History History Provided By: Patient, Family Member - Medical History Medical History: Medical History (Last Reviewed 06/28/18 @ 13:52 by Albin Mendez) Diabetes End stage chronic kidney disease HBP (high blood pressure) - Surgical History Surgical History: Surgical History (Last Reviewed 06/28/18 @ 13:52 by Albin Mendez) Hx of cholecystectomy - Tobacco History Second Hand Smoke Exposure: No Tobacco Use In Past 30 Days: No Smoking Status: Never smoker - Alcohol History How Often Do You Have a Drink Containing Alcohol: Never - Substance Use History Substance History: No History of Abuse - Travel History Recent Travel in the [place] Within the Last 8 Weeks: No Recent Travel Out of the Country Within the Last 8 Weeks: No - Immunization History Tetanus Immunization: >5 Years Medications and Allergies Active Medications: Active Medications Acetaminophen (Tylenol) 650 mg PO Q4H PRN PRN Reason: Temp > 100.4 Al Hydroxide/Mg Hydroxide (Milk Of Magnesia Liq) 30 ml PO Q12H PRN PRN Reason: Mild Constipation Bisacodyl (Dulcolax Supp) 10 mg RECTAL DAILY PRN PRN Reason: SEVERE CONSITIPATION Clonidine HCl (Catapres) 0.3 mg PO TID [facility] Hydralazine HCl (Apresoline) 100 mg PO TID [facility] Nicardipine HCl 25 mg/ Sodium (Chloride) 250 mls @ 50 mls/hr IV.CONT TITRATE PRN; Protocol PRN Reason: Per Protocol Last Admin: 06/28/18 13:33 Dose: 7.5 mg/hr, 75 mls/hr Insulin Aspart (Novolog Insulin Correctional Sugar Inj) 8 unit SQ TID [facility] Insulin Detemir (Levemir Inj) 12 unit SQ BID [facility] Lactulose (Lactulose Liq) 30 ml PO DAILY PRN PRN Reason: SEVERE CONSITIPATION Ondansetron HCl (Zofran Inj) 4 mg IV.PUSH Q6H PRN PRN Reason: NAUSEA OR VOMITING Senna/Docusate Sodium (Eulalia-Colace) 1 tab PO BID [facility] Sennosides (Senokot) 17.2 mg PO Q12H PRN PRN Reason: Moderate Constipation Allergies Allergy/AdvReac Type Severity Reaction Status Date / Time No Known Allergies Allergy Unverified 06/28/18 07:59 Home Medications Medication Instructions Recorded Confirmed Type clonidine HCl 0.3 mg PO TID 06/28/18 06/28/18 History folic acid 0.4 mg PO DAILY 06/28/18 06/28/18 History hydralazine 100 mg PO TID 06/28/18 06/28/18 History insulin glargine [Lantus U-100 12 unit SUBCUT BID 06/28/18 06/28/18 History Insulin] insulin lispro [Humalog U-100 8 unit SUBCUT TID 06/28/18 06/28/18 History Insulin] minoxidil 10 mg PO BID 06/28/18 06/28/18 History Exam Vital signs: Vital Signs 06/28/18 07:38 06/28/18 08:51 06/28/18 09:41 Temperature 98.2 F 97.7 F Pulse Rate 89 87 82 Respiratory Rate 16 Blood Pressure 220/136 H 231/133 H 219/130 H Pulse Oximetry 100 98 06/28/18 10:46 06/28/18 11:10 Temperature 97.8 F 97.7 F Pulse Rate 87 89 Respiratory Rate 16 16 Blood Pressure 132/81 131/82 Pulse Oximetry 97 98 Intake & Output 06/27/18 06/28/18 06/28/18 18:59 06:59 18:59 Intake Total 250 / 250 Balance 250 / 250 Weight 61.235 kg Intake: IV 250 / 250 Cardene Inj 25 MG In NS Inj 240 250 / 250 ML @ 5 MG/HR 50 mls/hr IV.CONT TITRATE PRN Rx#:[id number] - Constitutional no acute distress - Routine HEENT Exam Head: Present: normocephalic, atraumatic Eye: Present: EOMI, scleral injection. Absent: PERRL (Pupils equal and unreactive to light.) ENT: Present: mucous membranes moist - Routine Respiratory Exam Present: CTA bilaterally. Absent: rhonchi, wheezes, crackles - Routine Cardiovascular Exam Present: RRR, S1, S2. Absent: murmur, gallop, rubs - Routine Abdominal Exam Present: soft, normoactive bowel sounds. Absent: tenderness, distended, rebound - Routine Extremities Exam Present: full ROM. Absent: cyanosis, clubbing, edema - Routine Skin Exam Present: intact, dry. Absent: cyanosis, erythema - Routine Neurological Exam Present: alert, oriented X3. Absent: CN II-XII intact (CN III - XII grossly intact), sensory deficit, motor deficit, vision grossly intact Results - Labs CBC & Chem 7: 06/28/18 08:00 06/28/18 08:00 Labs: Laboratory Results - last 24 hr 06/28/18 06/28/18 06/28/18 08:00 08:00 08:08 WBC 9.9 RBC 5.98 H Hgb 13.9 Hct 43.5 MCV 72.7 L MCH 23.2 L MCHC 32.0 RDW 33.7 H Plt Count 264 MPV 8.6 Prelim Diff (Auto) Slide review pending Neut % (Auto) 71.9 H Lymph % (Auto) 14.3 [place] % (Auto) 8.4 H Eos % (Auto) 4.5 H Baso % (Auto) 0.9 Neut # (Auto) 7.2 Lymph # (Auto) 1.4 [place] # (Auto) 0.8 Eos # (Auto) 0.4 Baso # (Auto) 0.1 WBC Differential . Diff Scan Auto diff confirmed Differential Comment . Platelet Estimate Normal Platelet Morphology Normal Dimorphic RBCs Present H Ovalocytes 2+ H Acanthocytes (Spur) 1+ H PT INR APTT Puncture Site Right radial Patient Temperature 98.6 O2 Saturation 92 ABG pH 7.44 H ABG pCO2 38 ABG pO2 76 ABG HCO3 25 ABG O2 Content 17.5 ABG Base Excess 1.4 ABG Methemoglobin 0.8 Joseph Test Present Hemoglobin 13.5 Carboxyhemoglobin 3.0 Inspired O2 21 Critical Value No Sodium 133 L Potassium 6.0 H Chloride 95 L Carbon Dioxide 25.7 Anion Gap 12 BUN 67 H Creatinine 8.82 H Estimated GFR 9 L POC Glucose Random Glucose 283 H Calcium 8.7 Phosphorus 4.0 Magnesium 2.3 Total Bilirubin 1.3 H AST 48 H ALT 25 Alkaline Phosphatase 130 H Total Protein 7.3 Albumin 3.2 L Beta-Hydroxybutyric Acd 0.19 06/28/18 06/28/18 06/28/18 08:09 08:20 11:11 WBC RBC Hgb Hct MCV MCH MCHC RDW Plt Count MPV Prelim Diff (Auto) Neut % (Auto) Lymph % (Auto) [place] % (Auto) Eos % (Auto) Baso % (Auto) Neut # (Auto) Lymph # (Auto) [place] # (Auto) Eos # (Auto) Baso # (Auto) WBC Differential Diff Scan Differential Comment Platelet Estimate Platelet Morphology Dimorphic RBCs Ovalocytes Acanthocytes (Spur) PT 10.7 INR 1.1 APTT 23.0 L Puncture Site Patient Temperature O2 Saturation ABG pH ABG pCO2 ABG pO2 ABG HCO3 ABG O2 Content ABG Base Excess ABG Methemoglobin Joseph Test Hemoglobin Carboxyhemoglobin Inspired O2 Critical Value Sodium Potassium Chloride Carbon Dioxide Anion Gap BUN Creatinine Estimated GFR POC Glucose 281 H 216 H Random Glucose Calcium Phosphorus Magnesium Total Bilirubin AST ALT Alkaline Phosphatase Total Protein Albumin Beta-Hydroxybutyric Acd Caprini VTE Risk Assessment Caprini Risk Assessment Model: Point Value = 1 Point Value = 2 Point Value = 3 Point Value = 5 Age 41-60 Minor surgery BMI > 25 kg/m2 Swollen legs Varicose veins or History of unexplained or recurrent spontaneous Oral contraceptives or hormone replacement Sepsis (< 1 month) Serious lung disease, including pneumonia (< 1 month) Abnormal pulmonary function Acute myocardial infarction Congestive heart failure (< 1 month) History of inflammatory bowel disease Medical patient at bed rest Age 61-74 Arthroscopic surgery Major open surgery (> 45 min) Laparoscopic surgery (> 45 min) Malignancy Confined to bed (> 72 hours) Immobilizing plaster cast Central venous access Age >= 75 History of VTE Family history of VTE Factor V Leiden Prothrombin [id number] Lupus anticoagulant Anticardiolipin antibodies Elevated serum homocysteine Heparin-induced thrombocytopenia Other congenital or acquired thrombophilia Stroke (< 1 month) Elective arthroplasty Hip, pelvis, or leg fracture Acute spinal cord injury (< 1 month) Prophylaxis Regimen: Total Risk Factor Score Risk Level Prophylaxis Regimen 0-1 Low Early ambulation 2 Moderate Order ONE of the following: *Sequential Compression Device (SCD) *Heparin 5000 units SQ BID 3-4 Higher Order ONE of the following medications: *Heparin 5000 units SQ TID *Enoxaparin/Lovenox 40 mg SQ daily (WT < 150 kg, CrCl > 30 mL/min) *Enoxaparin/Lovenox 30 mg SQ daily (WT < 150 kg, CrCl > 10-29 mL/min) *Enoxaparin/Lovenox 30 mg SQ BID (WT < 150 kg, CrCl > 30 mL/min) AND/OR *Sequential Compression Device (SCD) 5 or more Highest Order ONE of the following medications: *Heparin 5000 units SQ TID (Preferred with Epidurals) *Enoxaparin/Lovenox 40 mg SQ daily (WT < 150 kg, CrCl > 30 mL/min) *Enoxaparin/Lovenox 30 mg SQ daily (WT < 150 kg, CrCl > 10-29 mL/min) *Enoxaparin/Lovenox 30 mg SQ BID (WT < 150 kg, CrCl > 30 mL/min) AND *Sequential Compression Device (SCD) Assessment and Plan - Plan Assessment/Plan: Retinal detachment: Ordered consult for Dr. Yanes Surgery today per Dr. Yanes NPO Hypertension, poorly controlled Hydralazine PRN Diabetes mellitus, insulin dependent Insulin ESRD with dialysis Wednesday, Wednesday, Wednesday Consult nephrology ?Dialysis tomorrow Code Status: Full DVT prophylaxis: early ambulation, SCDs, Lovenox
[2018-06-28] MEDS ORDERED: Dexmedetomidine Inj 200 MCG/2 ML Vial ONE (14:48)
[2018-06-28] MEDS: Tropicamide 1% Opth Drops 15 ML Bottle LEFT EYE SCH ×4 (15:00→15:45)
[2018-06-28] MEDS: Phenylephrine 2.5% Opth Drops 2 ML Bottle LEFT EYE SCH ×4 (15:00→15:45)
[2018-06-28] MEDS: Cyclopentolate 1% Opth Drops 2 ML Bottle LEFT EYE SCH ×4 (15:00→15:45)
[2018-06-28] MEDS: Atropine 1% Opth Drops 2 ML Bottle LEFT EYE SCH ×4 (15:00→15:45)
[2018-06-28] MEDS ORDERED: Sugammadex Inj 200 MG/2 ML Vial IV.PUSH ONE (15:38)
[2018-06-28] MEDS: prednisoLONE Acetate 1% Opth Susp 5 ML Bottle LEFT EYE SCH ×2 (15:45→22:20)
[2018-06-28] MEDS: Moxifloxacin 0.5% Opth Drops 3 ML Bottle LEFT EYE SCH ×2 (15:45→22:21)
[2018-06-28] MEDS ORDERED: Sodium Polystyrene Sulfate 30 GM/120 ML Enema RECTAL ONE (16:00)
[2018-06-28] MEDS ORDERED: Sodium Chlor 0.9% Inj 500 ML IV.CONT ONE (16:00)
[2018-06-28] MEDS ORDERED: Lidocaine PF 1% Inj 5 ML Syringe OTHER ONE (16:00)
[2018-06-28] MEDS ORDERED: Sodium Polystyrene Sulfonate/Sorbitol Liq 15 GM/60 ML UDC RECTAL ONE (16:30)
[2018-06-28] MEDS ORDERED: fentaNYL Citrate Inj 100 MCG/2 ML Ampul ONE (18:35)
[2018-06-28] MEDS ORDERED: Heparin 10,000 UNITS/10 ML Vial (for IV use) ONE (18:54)
[2018-06-28] MEDS ORDERED: Heparin 10,000 UNITS/10 ML Vial (for IV use) IV.FLUSH ONE (19:00)
[2018-06-28] MEDS ORDERED: *Promethazine Inj 25 MG/ML Vial PERIprocedural use ONLY ONE (19:06)
[2018-06-28] MEDS ORDERED: Insulin Detemir Inj 1,000 UNIT/10 ML Vial SQ SCH (21:00)
[2018-06-28] MEDS: Insulin NovoLOG Aspart Correctional Sugar Inj SQ SCH (22:00)
[2018-06-28] MEDS: Senna/Docusate Sodium 8.6/50 MG Tablet PO SCH (22:01)
[2018-06-28] MEDS: Acetaminophen 325 MG Tablet PO PRN (22:01)
[2018-06-28 22:44] LABS: Calcium 9.2 mg/dL (8.5-10.1); Carbon Dioxide 22.1 meq/L (21.0-32.0)
[2018-06-28 23:05] LABS: Potassium 6.6 meq/L (3.5-5.1)
[2018-06-28] MEDS ORDERED: Dextrose 50% in Water 50 ML Vial IV.PUSH ONE (23:54)
[2018-06-28] MEDS ORDERED: Calcium Gluconate Inj 1 GM in Sodium Chlor 0.9% Inj 100 ML IV.SIG ONE (23:54)
[2018-06-29] MEDS: Sodium Chloride 0.9% 2 ML Flush BID IV.FLUSH SCH ×3 (00:27→22:25)
[2018-06-29] MEDS: niCARdipine Inj 25 MG in Sodium Chlor 0.9% Inj 240 ML IV.CONT PRN ×4 (02:26→19:00)
[2018-06-29 06:10] LABS: Baso # (Auto) 0.1 th/mm3 (0.0-0.2); Baso % (Auto) 0.6 % (0.0-2.0); Eos % (Auto) 0.1 % (0.0-4.0); Hemoglobin 11.4 gm/dL (13.0-17.0); Lymph # (Auto) 0.9 th/mm3 (1.0-4.8); Lymph % (Auto) 8.3 % (9.0-44.0); Mean Corpuscular HGB Conc 31.6 % (32.0-36.0); Mean Corpuscular Hemoglobin 23.3 pg (27.0-34.0); Mean Corpuscular Volume 73.8 fL (80.0-100.0); Mean Platelet Volume 8.6 fL (7.0-11.0); Mono # (Auto) 0.8 th/mm3 (0.0-0.9); Mono % (Auto) 6.8 % (0.0-8.0); Neut # (Auto) 9.5 th/mm3 (1.8-7.7); Neut % (Auto) 84.2 % (16.0-70.0); Platelet Count 240 th/mm3 (150-450); Red Blood Count 4.88 mil/mm3 (4.50-5.90); Red Cell Distribution Width 30.4 % (11.6-17.2); White Blood Count 11.3 th/mm3 (4.0-11.0)
[2018-06-29 06:12] LABS: Calcium 8.9 mg/dL (8.5-10.1); Carbon Dioxide 19.4 meq/L (21.0-32.0)
[2018-06-29 06:16] LABS: Potassium 6.7 meq/L (3.5-5.1)
[2018-06-29] MEDS ORDERED: Acetaminophen 325 MG Tablet PO PRN (07:19)
[2018-06-29] MEDS ORDERED: Sod Chloride 0.9% Inj 1,000 ML OTHER PRN ×2 (07:19)
[2018-06-29] MEDS ORDERED: Heparin 10,000 UNITS/10 ML Vial (for IV use) OTHER PRN (07:19)
[2018-06-29] MEDS ORDERED: Gelatin 12 MM/7 MM Topical Foam TOPICAL PRN (07:19)
[2018-06-29] MEDS ORDERED: Albumin Human 25% Inj 100 ML IV.SIG PRN (07:19)
[2018-06-29] MEDS ORDERED: Sod Chloride 0.9% Inj 1,000 ML IV.CONT PRN (07:19)
[2018-06-29] MEDS: Moxifloxacin 0.5% Opth Drops 3 ML Bottle LEFT EYE SCH ×5 (07:54→21:10)
[2018-06-29] MEDS: Insulin NovoLOG Aspart Correctional Sugar Inj SQ SCH ×5 (08:00→22:19)
[2018-06-29] MEDS: prednisoLONE Acetate 1% Opth Susp 5 ML Bottle LEFT EYE SCH ×5 (08:00→21:11)
[2018-06-29 08:34] LABS: Ovalocytes 2+
[2018-06-29 08:35] LABS: Acanthocytes 1+; Dimorphic RBC Present
[2018-06-29] MEDS: Heparin 10,000 UNITS/10 ML Vial (for IV use) OTHER PRN (09:02)
--- NOTE | 2018-06-29 10:11 | P.CONNP ---
<Ariadna Fraire - Last Filed: 06/29/18 09:51> History of Present Illness Service: Nephrology Consult date: 06/29/18 Requesting Physician: Yamel Shell Reason for Consult: End stage renal disease on hemodialysis Primary Care Provider: No Primary Care Physician Chief Complaint: blindness both eyes, getting progressively worse History of Present Illness: Patient is a very pleasant 28 year old male from [place] with a history of IDDM type 1, hypertension, and end stage renal disease,and blindness. Presented to the ED being sent by his ophthalmology Dr. Yanes for hypertension with a blood pressure of 231/133. He was also found to be hyperkalemic, treatment given last night. He was seeing Dr. Yanes for surgery of for retinal detachment. He is status post surgery on left eye, lying on stomach with patch on eye. Nephrology is consulted for management of end stage renal disease on hemodialysis. Seen during hemodialysis tolerating well. Patient denies any shortness of breath, chest pain, nausea, or vomiting. Reports some back discomfort with the way he is sleeping. [facility] - History History Provided By: Patient, Family Member - Medical History Medical History: Medical History (Last Reviewed 06/28/18 @ 15:05 by Yamel Shell MD) Diabetes End stage chronic kidney disease HBP (high blood pressure) - Surgical History Surgical History: Surgical History (Last Reviewed 06/28/18 @ 15:05 by Yamel Shell MD) Hx of cholecystectomy - Family History Family History: Family History (Last Updated 06/28/18 @ 15:05 by Yamel Shell MD) Other No pertinent family history - Tobacco History Second Hand Smoke Exposure: No Tobacco Use In Past 30 Days: No Smoking Status: Never smoker - Alcohol History How Often Do You Have a Drink Containing Alcohol: Never - Substance Use History Substance History: No History of Abuse - Travel History Recent Travel in the [place] Within the Last 8 Weeks: No Recent Travel Out of the Country Within the Last 8 Weeks: No - Immunization History Tetanus Immunization: >5 Years Medications and Allergies Allergies Allergy/AdvReac Type Severity Reaction Status Date / Time No Known Allergies Allergy Unverified 06/28/18 07:59 Home Medications Medication Instructions Recorded Confirmed Type clonidine HCl 0.3 mg PO TID 06/28/18 06/28/18 History folic acid 0.4 mg PO DAILY 06/28/18 06/28/18 History hydralazine 100 mg PO TID 06/28/18 06/28/18 History insulin glargine [Lantus U-100 12 unit SUBCUT BID 06/28/18 06/28/18 History Insulin] insulin lispro [Humalog U-100 8 unit SUBCUT TID 06/28/18 06/28/18 History Insulin] minoxidil 10 mg PO BID 06/28/18 06/28/18 History Active Medications: Active Medications Acetaminophen (Tylenol) 650 mg PO Q4H PRN PRN Reason: Temp > 100.4 Last Admin: 06/28/18 22:01 Dose: 650 mg Acetaminophen (Tylenol) 650 mg PO UNSCH PRN PRN Reason: SEE LABEL COMMENTS Al Hydroxide/Mg Hydroxide (Milk Of Thelma Salgado) 30 ml PO Q12H PRN PRN Reason: Mild Constipation Bisacodyl (Dulcolax Supp) 10 mg RECTAL DAILY PRN PRN Reason: SEVERE CONSITIPATION Clonidine HCl (Catapres) 0.3 mg PO TID [facility] Last Admin: 06/29/18 08:04 Dose: 0.3 mg Clonidine HCl (Catapres) 0.1 mg PO UNSCH PRN PRN Reason: SEE LABEL COMMENTS Dextrose (D50w Vial) 50 ml IV.PUSH UNSCH PRN PRN Reason: PER HYPOGLYCEMIA PROTOCOL Diphenhydramine HCl (Benadryl) 25 mg PO UNSCH PRN PRN Reason: SEE LABEL COMMENTS Gelatin (Gelfoam 12 Mm/7 Mm Topical) 1 foam TOPICAL PRN PRN PRN Reason: help stop bleeding from site Gentamicin Sulfate (Gentamicin Inj) 20 mg OTHER WITH DIALYSIS PRN PRN Reason: Dwell Gentamycin Lock Last Admin: 06/29/18 09:02 Dose: 20 mg Glucagon (Glucagon Inj) 1 mg OTHER PRN PRN PRN Reason: for Hypoglycemia Protocol Heparin Sodium (Porcine) (Heparin Inj) 1,000 units OTHER WITH DIALYSIS PRN PRN Reason: Dwell Heparin to Fill Catheter Last Admin: 06/29/18 09:02 Dose: 1,000 units Heparin Sodium (Porcine) (Heparin Inj) 8,000 units OTHER WITH DIALYSIS PRN PRN Reason: for machine prime Hydralazine HCl (Apresoline) 100 mg PO TID [facility] Last Admin: 06/29/18 08:04 Dose: 100 mg Nicardipine HCl 25 mg/ Sodium (Chloride) 250 mls @ 50 mls/hr IV.CONT TITRATE PRN; Protocol PRN Reason: Per Protocol Last Titration: 06/29/18 06:20 Dose: 0 mg/hr, 0 mls/hr Albumin Human (Flexbumin 25% Inj) 100 mls @ 60 mls/hr IV.SIG WITH DIALYSIS PRN PRN Reason: hypotension / volume replace Sodium Chloride (Ns Inj) 1,000 mls @ 0 mls/hr OTHER .Q0M PRN PRN Reason: for prime and rinse back Sodium Chloride (Ns Inj) 1,000 mls @ 200 mls/hr OTHER .Q5H PRN PRN Reason: for dialyzer flush PRN Sodium Chloride (Ns Inj) 1,000 mls @ 0 mls/hr IV.CONT .Q0M PRN PRN Reason: hypotension / volume replace Insulin Aspart (Novolog Insulin Correctional Sugar Inj) 0 unit SQ ACHS [facility]; Protocol Last Admin: 06/29/18 08:00 Dose: Not Given Mannitol (Mannitol Inj) 12.5 gm IV.PUSH UNSCH PRN PRN Reason: hypotension / volume replace Miscellaneous Information ([facility] Nursing Information) 1 each OTHER UNSCH PRN PRN Reason: SEE LABEL COMMENTS Stop: 06/29/18 18:39 Moxifloxacin HCl (Vigamox 0.5% Opth Drops) 1 drop LEFT EYE QID [facility] Last Admin: 06/29/18 07:54 Dose: Not Given Nitroglycerin (Nitrostat Sl) 0.4 mg SL Q5M PRN PRN Reason: CHEST PAIN Last Admin: 06/29/18 08:03 Dose: 0.4 mg Ondansetron HCl (Zofran Inj) 4 mg IV.PUSH Q6H PRN PRN Reason: NAUSEA OR VOMITING Ondansetron HCl (Zofran Inj) 4 mg IV.PUSH UNSCH PRN PRN Reason: NAUSEA OR VOMITING Prednisolone Acetate (Pred Forte 1% Opth Susp) 1 drop LEFT EYE QID [facility] Last Admin: 06/29/18 08:00 Dose: Not Given Senna/Docusate Sodium (Eulalia-Colace) 1 tab PO BID [facility] Last Admin: 06/28/18 22:01 Dose: 1 tab Sennosides (Senokot) 17.2 mg PO Q12H PRN PRN Reason: Moderate Constipation Sodium Chloride (Ns Flush) 2 ml IV.FLUSH BID [facility] Last Admin: 06/29/18 08:04 Dose: 2 ml Sodium Chloride (Ns Flush) 2 ml IV.FLUSH PRN PRN PRN Reason: FLUSH AFTER USING IV ACCESS Sodium Chloride (Ns Flush) 5 ml IV.FLUSH PRN PRN PRN Reason: flush each lumen during HD Exam Vital signs: Vital Signs 06/28/18 10:46 06/28/18 11:10 06/28/18 12:00 Temperature 97.8 F 97.7 F 98.8 F Pulse Rate 87 89 89 Respiratory Rate 16 16 20 Blood Pressure 132/81 131/82 128/77 Pulse Oximetry 97 98 97 06/28/18 14:15 06/28/18 14:30 06/28/18 14:45 Temperature 97.8 F Pulse Rate 88 86 86 Respiratory Rate 17 17 19 Blood Pressure 137/81 122/77 122/76 Pulse Oximetry 97 97 97 06/28/18 15:00 06/28/18 15:15 06/28/18 15:30 Temperature Pulse Rate 85 86 85 Respiratory Rate 19 19 19 Blood Pressure 123/73 126/75 125/74 Pulse Oximetry 97 96 97 06/28/18 15:45 06/28/18 18:24 06/28/18 18:45 Temperature 98.2 F Pulse Rate 85 84 86 Respiratory Rate 19 16 15 Blood Pressure 124/74 124/83 137/83 Pulse Oximetry 97 100 100 06/28/18 19:00 06/28/18 19:15 06/28/18 19:30 Temperature Pulse Rate 86 85 89 Respiratory Rate 13 15 14 Blood Pressure 131/80 126/75 125/74 Pulse Oximetry 100 100 100 06/28/18 19:45 06/28/18 20:30 06/29/18 00:00 Temperature 98.1 F 98.3 F Pulse Rate 84 87 Respiratory Rate 16 16 Blood Pressure 134/77 127/65 Pulse Oximetry 98 98 96 06/29/18 04:00 Temperature 98.8 F Pulse Rate 92 H Respiratory Rate 16 Blood Pressure 161/92 H Pulse Oximetry 96 Intake & Output 06/28/18 06/29/18 06/29/18 18:59 06:59 18:59 Intake Total 250 / 250 2255 / 2255 Output Total 5 / 5 Balance 250 / 250 2250 / 2250 Weight 54.3 kg 54.9 kg Intake: IV 250 / 250 1110 / 1110 Cardene Inj 25 MG In NS Inj 240 250 / 250 1000 / 1000 ML @ 5 MG/HR 50 mls/hr IV.CONT TITRATE PRN Rx#:[id number] Calcium Gluconate Inj 1 GM In 110 / 110 NS Inj 100 ML @ 110 mls/hr IV. SIG ONCE ONE Rx#:[id number] Oral 720 / 720 Anesthesia Amount 425 / 425 Output: Urine 0 / 0 Estimated Blood Loss 5 / 5 Other: # Bowel Movements 0 Weight On Admission 54.3 kg Narrative: GENERAL: alert and oriented. NAD. SKIN: Warm and dry. HEAD: Normocephalic. EYES: Left eye with patch. r NECK: Supple, trachea midline. No JVD or lymphadenopathy. CARDIOVASCULAR: Regular rate and rhythm without murmurs, gallops, or rubs. Permcath IJ. RESPIRATORY: Breath sounds equal bilaterally. No accessory muscle use. GASTROINTESTINAL: Abdomen soft, non-tender, nondistended. MUSCULOSKELETAL: No cyanosis, or edema. BACK: Nontender without obvious deformity. No CVA tenderness. Results - Lab Results 06/29/18 05:32 06/29/18 05:32 Most recent lab results ABG pH 7.44 (7.380-7.420) H 06/28/18 08:08 ABG pCO2 38 mmHg (38-42) 06/28/18 08:08 ABG pO2 76 mmHg (61-120) 06/28/18 08:08 ABG HCO3 25 mmol/L (22-26) 06/28/18 08:08 Calcium 8.9 mg/dL (8.5-10.1) 06/29/18 05:32 Phosphorus 4.0 mg/dL (2.5-4.9) 06/28/18 08:00 Magnesium 2.3 mg/dL (1.5-2.5) 06/28/18 08:00 Assessment and Plan - Assessment (1) End-stage renal disease on hemodialysis Code(s): N18.6 - End stage renal disease; Z99.2 - Dependence on renal dialysis Status: Acute Plan: End stage renal disease on hemodialysis Wednesday, Wednesday, Wednesday Permacath IJ Plan Avoid gadolinium Avoid IVF administration Hyperkalemia treated last night, continues to be elevated this morning, K bath adjusted with dialysis Seen during Hemodialysis today tolerating well, 1 K bath used, will remove fluid as tolerated Labs in AM (2) Hypertension Code(s): I10 - Essential (primary) hypertension Status: Acute Plan: Blood pressure better controlled Cardene gtt weaned off and on oral medication (3) Insulin dependent diabetes mellitus Code(s): E11.9 - Type 2 diabetes mellitus without complications; Z79.4 - [facility] (current) use of insulin Status: Acute Plan: Maintain blood sugars between 140 mg/dl to 180 mg/dl. <Vinnie Elise Q - Last Filed: 07/05/18 17:13> History of Present Illness Primary Care Provider: No Primary Care Physician [facility] - Medical History Medical History: Medical History (Last Reviewed 06/28/18 @ 15:05 by Yamel Shell MD) Diabetes End stage chronic kidney disease HBP (high blood pressure) - Surgical History Surgical History: Surgical History (Last Reviewed 06/28/18 @ 15:05 by Yamel Shell MD) Hx of cholecystectomy - Family History Family History: Family History (Last Updated 06/28/18 @ 15:05 by Yamel Shell MD) Other No pertinent family history Medications and Allergies Active Medications: Active Medications Acetaminophen (Tylenol) 650 mg PO Q4H PRN PRN Reason: Headache, fever, pain 1-4 Last Admin: 07/04/18 12:24 Dose: 650 mg Acetaminophen (Tylenol) 650 mg PO UNSCH PRN PRN Reason: SEE LABEL COMMENTS Al Hydroxide/Mg Hydroxide (Milk Of Thelma Salgdao) 30 ml PO Q12H PRN PRN Reason: Mild Constipation Last Admin: 06/30/18 15:21 Dose: 30 ml Bisacodyl (Dulcolax Supp) 10 mg RECTAL DAILY PRN PRN Reason: SEVERE CONSITIPATION Brimonidine Tartrate (Alphagan 0.2% Opth Drops) 1 drops LEFT EYE BID [facility] Last Admin: 07/05/18 09:27 Dose: 1 drops Calcium Acetate (Phoslo) 1,334 mg PO TID [facility] Last Admin: 07/05/18 13:28 Dose: 1,334 mg Dextrose (D50w Vial) 50 ml IV.PUSH UNSCH PRN PRN Reason: PER HYPOGLYCEMIA PROTOCOL Last Admin: 07/05/18 04:21 Dose: 50 ml Diphenhydramine HCl (Benadryl) 25 mg PO UNSCH PRN PRN Reason: SEE LABEL COMMENTS Gelatin (Gelfoam 12 Mm/7 Mm Topical) 1 foam TOPICAL PRN PRN PRN Reason: help stop bleeding from site Gentamicin Sulfate (Gentamicin Inj) 20 mg OTHER WITH DIALYSIS PRN PRN Reason: Dwell Gentamycin Lock Last Admin: 07/04/18 11:07 Dose: 20 mg Glucagon (Glucagon Inj) 1 mg OTHER PRN PRN PRN Reason: for Hypoglycemia Protocol Heparin Sodium (Porcine) (Heparin Inj) 1,000 units OTHER WITH DIALYSIS PRN PRN Reason: Dwell Heparin to Fill Catheter Last Admin: 07/04/18 11:07 Dose: 1,000 units Heparin Sodium (Porcine) (Heparin Inj) 8,000 units OTHER WITH DIALYSIS PRN PRN Reason: for machine prime Homatropine HBr (Isopto-Homatropine 5% Opth Drops) 1 drop LEFT EYE BID [facility] Last Admin: 07/05/18 10:13 Dose: 1 drop Hydralazine HCl (Apresoline) 100 mg PO TID [facility] Last Admin: 07/05/18 13:27 Dose: 100 mg Nicardipine HCl 25 mg/ Sodium (Chloride) 250 mls @ 50 mls/hr IV.CONT TITRATE PRN; Protocol PRN Reason: Per Protocol Last Admin: 07/02/18 10:45 Dose: 10 mg/hr, 100 mls/hr Albumin Human (Flexbumin 25% Inj) 100 mls @ 60 mls/hr IV.SIG WITH DIALYSIS PRN PRN Reason: hypotension / volume replace Sodium Chloride (Ns Inj) 1,000 mls @ 0 mls/hr OTHER .Q0M PRN PRN Reason: for prime and rinse back Last Admin: 07/04/18 11:08 Dose: 200 mls/hr Sodium Chloride (Ns Inj) 1,000 mls @ 200 mls/hr OTHER .Q5H PRN PRN Reason: for dialyzer flush PRN Sodium Chloride (Ns Inj) 1,000 mls @ 0 mls/hr IV.CONT .Q0M PRN PRN Reason: hypotension / volume replace Insulin Aspart (Novolog Insulin Correctional Sugar Inj) 0 unit SQ ACHS [facility]; Protocol Last Admin: 07/05/18 12:04 Dose: 3 unit Insulin Detemir (Levemir Inj) 12 unit SQ HS [facility] Last Admin: 07/04/18 21:54 Dose: 12 unit Labetalol HCl (Trandate Inj) 10 mg IV.PUSH Q6H PRN PRN Reason: Sbp>170, Dbp>100, Hr>65 Last Admin: 07/05/18 06:26 Dose: 10 mg Mannitol (Mannitol Inj) 12.5 gm IV.PUSH UNSCH PRN PRN Reason: hypotension / volume replace Metoclopramide HCl (Reglan Inj) 5 mg IM Q8H [facility]; Protocol Last Admin: 07/05/18 09:26 Dose: 5 mg Metoprolol Tartrate (Lopressor) 25 mg PO TID [facility] Last Admin: 07/05/18 13:31 Dose: Not Given Minoxidil (Loniten) 10 mg PO BID [facility] Last Admin: 07/05/18 09:27 Dose: 10 mg Miscellaneous (Pill Splitter) 1 each OTHER UNSCH [facility] Morphine Sulfate (Morphine Inj) 4 mg IV.PUSH Q4H PRN PRN Reason: BREAKTHROUGH PAIN Last Admin: 07/05/18 02:17 Dose: 4 mg Moxifloxacin HCl (Vigamox 0.5% Opth Drops) 1 drop LEFT EYE QID [facility] Last Admin: 07/05/18 13:28 Dose: 1 drop Nifedipine (Procardia Xl) 60 mg PO DAILY [facility] Last Admin: 07/05/18 09:27 Dose: 60 mg Nitroglycerin (Nitrostat Sl) 0.4 mg SL Q5M PRN PRN Reason: CHEST PAIN Last Admin: 06/29/18 10:12 Dose: 0.4 mg Ondansetron HCl (Zofran Inj) 4 mg IV.PUSH Q6H PRN PRN Reason: NAUSEA OR VOMITING Last Admin: 07/03/18 15:36 Dose: 4 mg Ondansetron HCl (Zofran Inj) 4 mg IV.PUSH UNSCH PRN PRN Reason: NAUSEA OR VOMITING Oxycodone/Acetaminophen (Percocet 7.5/325 Mg) 1 tab PO Q6H PRN PRN Reason: Pain 5-10 Last Admin: 07/03/18 00:32 Dose: 1 tab Patch Removal (Remove Old Patch) 1 each T-DERMAL Q3D [facility] Prednisolone Acetate (Pred Forte 1% Opth Susp) 1 drop LEFT EYE QID [facility] Last Admin: 07/05/18 13:28 Dose: 1 drop Promethazine HCl (Phenergan Inj) 25 mg IM Q6H PRN PRN Reason: nausea if no relief from zofra Last Admin: 07/02/18 16:09 Dose: 25 mg Scopolamine (Transderm-Scop 1.5 Mg Patch.72hr) 1 patch T-DERMAL Q3D [facility] Last Admin: 07/03/18 17:40 Dose: 1 patch Senna/Docusate Sodium (Eulalia-Colace) 1 tab PO BID [facility] Last Admin: 07/05/18 09:27 Dose: 1 tab Sennosides (Senokot) 17.2 mg PO Q12H PRN PRN Reason: Moderate Constipation Sodium Chloride (Ns Flush) 2 ml IV.FLUSH BID [facility] Last Admin: 07/05/18 09:27 Dose: 2 ml Sodium Chloride (Ns Flush) 2 ml IV.FLUSH PRN PRN PRN Reason: FLUSH AFTER USING IV ACCESS Last Admin: 07/03/18 00:33 Dose: 2 ml Sodium Chloride (Ns Flush) 5 ml IV.FLUSH PRN PRN PRN Reason: flush each lumen during HD Timolol Maleate (Timoptic 0.5% Drops) 1 drops LEFT EYE BID [facility] Last Admin: 07/05/18 09:28 Dose: 1 drops Exam Vital signs: Vital Signs 07/04/18 20:00 07/05/18 00:00 07/05/18 04:00 Temperature 99.8 F H 100.0 F H 98.4 F Pulse Rate 70 72 74 Respiratory Rate 18 14 17 Blood Pressure 109/54 L 125/57 L 178/90 H Pulse Oximetry 95 95 97 07/05/18 08:00 07/05/18 12:00 07/05/18 16:00 Temperature 98.9 F 98.9 F 98.9 F Pulse Rate 68 63 70 Respiratory Rate 12 21 21 Blood Pressure 137/65 128/69 123/58 L Pulse Oximetry 98 99 96 Intake & Output 07/04/18 07/05/18 07/05/18 18:59 06:59 18:59 Intake Total 240 / 240 240 / 240 Output Total 1999 0 / 0 Balance -1760 / -1760 240 / 240 Weight 59.9 kg Intake: Oral 240 / 240 240 / 240 Output: Urine 0 / 0 Stool 0 / 0 Hemodialysis Amount 1999 Other: # Voids 0 Date of Last Bowel Movement 07/02/18 07/02/18 07/02/18 Results - Lab Results 06/30/18 09:23 07/05/18 05:07 Most recent lab results ABG pH 7.44 (7.380-7.420) H 06/28/18 08:08 ABG pCO2 38 mmHg (38-42) 06/28/18 08:08 ABG pO2 76 mmHg (61-120) 06/28/18 08:08 ABG HCO3 25 mmol/L (22-26) 06/28/18 08:08 Calcium 7.9 mg/dL (8.5-10.1) L 07/04/18 05:12 Phosphorus 5.9 mg/dL (2.5-4.9) H D 06/30/18 06:56 Magnesium 2.3 mg/dL (1.5-2.5) 06/28/18 08:00 Assessment and Plan - Assessment (1) End-stage renal disease on hemodialysis Code(s): N18.6 - End stage renal disease; Z99.2 - Dependence on renal dialysis Status: Acute Plan: Patient seen and examined, agree with above. K was elevated, HD with low K Bath. BS and BP to follow. 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
--- NOTE | 2018-06-29 10:40 | P.PN ---
Subjective Interval history: The patient is in the room sitting in the chair with face down as per ophthalmology recommendations. He is having no pain at this time however with pain earlier received pain meds. Says he has back pain as he is positioned with face down. Says vision is improving in the left eye after the surgery yesterday. No discharge or pain in his eyes. No fever or chills. No headache. No cp, sob, n/v/d/c. Went for HD today. Physical Exam Vital signs: Vital Signs 06/28/18 10:46 06/28/18 11:10 06/28/18 12:00 Temperature 97.8 F 97.7 F 98.8 F Pulse Rate 87 89 89 Respiratory Rate 16 16 20 Blood Pressure 132/81 131/82 128/77 Pulse Oximetry 97 98 97 06/28/18 14:15 06/28/18 14:30 06/28/18 14:45 Temperature 97.8 F Pulse Rate 88 86 86 Respiratory Rate 17 17 19 Blood Pressure 137/81 122/77 122/76 Pulse Oximetry 97 97 97 06/28/18 15:00 06/28/18 15:15 06/28/18 15:30 Temperature Pulse Rate 85 86 85 Respiratory Rate 19 19 19 Blood Pressure 123/73 126/75 125/74 Pulse Oximetry 97 96 97 06/28/18 15:45 06/28/18 18:24 06/28/18 18:45 Temperature 98.2 F Pulse Rate 85 84 86 Respiratory Rate 19 16 15 Blood Pressure 124/74 124/83 137/83 Pulse Oximetry 97 100 100 06/28/18 19:00 06/28/18 19:15 06/28/18 19:30 Temperature Pulse Rate 86 85 89 Respiratory Rate 13 15 14 Blood Pressure 131/80 126/75 125/74 Pulse Oximetry 100 100 100 06/28/18 19:45 06/28/18 20:30 06/29/18 00:00 Temperature 98.1 F 98.3 F Pulse Rate 84 87 Respiratory Rate 16 16 Blood Pressure 134/77 127/65 Pulse Oximetry 98 98 96 06/29/18 04:00 Temperature 98.8 F Pulse Rate 92 H Respiratory Rate 16 Blood Pressure 161/92 H Pulse Oximetry 96 Intake & Output 06/28/18 06/29/18 06/29/18 18:59 06:59 18:59 Intake Total 250 / 250 2255 / 2255 Output Total 5 / 5 Balance 250 / 250 2250 / 2250 Weight 54.3 kg 54.9 kg Intake: IV 250 / 250 1110 / 1110 Cardene Inj 25 MG In NS Inj 240 250 / 250 1000 / 1000 ML @ 5 MG/HR 50 mls/hr IV.CONT TITRATE PRN Rx#:[id number] Calcium Gluconate Inj 1 GM In 110 / 110 NS Inj 100 ML @ 110 mls/hr IV. SIG ONCE ONE Rx#:[id number] Oral 720 / 720 Anesthesia Amount 425 / 425 Output: Urine 0 / 0 Estimated Blood Loss 5 / 5 Other: # Bowel Movements 0 Weight On Admission 54.3 kg Narrative: GENERAL: Pleasant young AA male, alert and oriented, appears in NAD. SKIN: Warm and dry. HEAD: Normocephalic. EYES: Left eye with patch. CARDIOVASCULAR: Regular rate and rhythm without murmurs, gallops, or rubs. Permcath IJ. RESPIRATORY: Breath sounds equal bilaterally. No accessory muscle use. GASTROINTESTINAL: Abdomen soft, non-tender, nondistended. MUSCULOSKELETAL: No cyanosis, or edema. BACK: Nontender without obvious deformity. No CVA tenderness. Results - Labs CBC & Chem 7: 06/29/18 05:32 06/29/18 05:32 Laboratory Results - last 24 hr 06/28/18 06/28/18 06/28/18 11:11 13:57 14:53 WBC RBC Hgb Hct MCV MCH MCHC RDW Plt Count MPV Prelim Diff (Auto) Neut % (Auto) Lymph % (Auto) Rush % (Auto) Eos % (Auto) Baso % (Auto) Neut # (Auto) Lymph # (Auto) Rush # (Auto) Eos # (Auto) Baso # (Auto) WBC Differential Diff Scan Differential Comment Dimorphic RBCs Ovalocytes Acanthocytes (Spur) Keratocytes Sodium Potassium Chloride Carbon Dioxide Anion Gap BUN Creatinine Estimated GFR POC Glucose 216 H 90 86 Random Glucose Calcium 06/28/18 06/28/18 06/28/18 17:07 17:59 18:26 WBC RBC Hgb Hct MCV MCH MCHC RDW Plt Count MPV Prelim Diff (Auto) Neut % (Auto) Lymph % (Auto) Rush % (Auto) Eos % (Auto) Baso % (Auto) Neut # (Auto) Lymph # (Auto) Rush # (Auto) Eos # (Auto) Baso # (Auto) WBC Differential Diff Scan Differential Comment Dimorphic RBCs Ovalocytes Acanthocytes (Spur) Keratocytes Sodium Potassium Chloride Carbon Dioxide Anion Gap BUN Creatinine Estimated GFR POC Glucose 77 75 100 Random Glucose Calcium 06/28/18 06/28/18 06/28/18 19:10 21:51 21:57 WBC RBC Hgb Hct MCV MCH MCHC RDW Plt Count MPV Prelim Diff (Auto) Neut % (Auto) Lymph % (Auto) Rush % (Auto) Eos % (Auto) Baso % (Auto) Neut # (Auto) Lymph # (Auto) Rush # (Auto) Eos # (Auto) Baso # (Auto) WBC Differential Diff Scan Differential Comment Dimorphic RBCs Ovalocytes Acanthocytes (Spur) Keratocytes Sodium 133 L Potassium 6.6 H* Chloride 97 L Carbon Dioxide 22.1 Anion Gap 14 BUN 82 H Creatinine 9.82 H Estimated GFR 8 L POC Glucose 152 H 234 H Random Glucose 249 H Calcium 9.2 06/29/18 06/29/18 06/29/18 05:32 05:32 08:37 WBC 11.3 H RBC 4.88 Hgb 11.4 L D Hct 36.0 L MCV 73.8 L MCH 23.3 L MCHC 31.6 L RDW 30.4 H D Plt Count 240 MPV 8.6 Prelim Diff (Auto) Slide review pending Neut % (Auto) 84.2 H Lymph % (Auto) 8.3 L Rush % (Auto) 6.8 Eos % (Auto) 0.1 Baso % (Auto) 0.6 Neut # (Auto) 9.5 H Lymph # (Auto) 0.9 L Rush # (Auto) 0.8 Eos # (Auto) 0.0 Baso # (Auto) 0.1 WBC Differential . Diff Scan Auto diff confirmed Differential Comment . Dimorphic RBCs Present H Ovalocytes 2+ H Acanthocytes (Spur) 1+ H Keratocytes Occ H Sodium 129 L Potassium 6.7 H* Chloride 95 L Carbon Dioxide 19.4 L Anion Gap 15 BUN 92 H Creatinine 10.46 H* Estimated GFR 7 L POC Glucose 513 H* Random Glucose 479 H* D Calcium 8.9 Assessment and Plan - Plan Retinal detachment: Consult patient slack cooper Dr. Yanes. S/p left eye laser vitrectomy on 06/28/[address] Yanes Keep facing down for 2 weeks after surgery as tolerated Continue postsurgical care per surgeon recommendations. GGT per ophthalmology started on moxifloxacin 0.5 % 1 ggt OS QID, Prednisolone acetate 1% 1 ggt OS QID, brimonidine 0.2% 1 ggt OS BID, Timolol 0.5 % 1ggt OS BID Hypertension, poorly controlled. HTN emergency with bilateral vision loss / retinal detachment On cardene drip, wean off as denice. Keep SBP< 140. The patient is with difficult to control BP. Add PO procardia to home regimen. Restart home meds on clonidine, hydralazine, minoxidil Hydralazine PRN. Labetalol PRN Monitor VS closely. Diabetes mellitus, insulin dependent Accuchecks. Insulin sliding scale before surgery, started long acting insulin thereafter. Monitor BS closely and adjust as need. ESRD on dialysis Wednesday, Wednesday, Wednesday Consult nephrology Continue HD per nephro Hyperkalemia. received Kayexalate. Also had HD 06/29. Monitor on telemetry. Monitor electrolytes Code Status: Full DVT prophylaxis: early ambulation, SCDs/TEDS Discussed with the patient, family at bedside, ICU nurse.
[2018-06-29] MEDS: Senna/Docusate Sodium 8.6/50 MG Tablet PO SCH ×2 (10:43→20:00)
[2018-06-29 10:51] LABS: Hepatitits B Surface Antigen Nonreactive (Nonreactive)
[2018-06-29 11:07] LABS: Hepatitis A IgM Antibody Nonreactive (Nonreactive)
[2018-06-29] MEDS: Insulin Detemir Inj 1,000 UNIT/10 ML Vial SQ SCH ×2 (12:45→22:25)
[2018-06-29] MEDS: NIFEdipine 10 MG Capsule PO SCH ×3 (15:51→21:09)
[2018-06-29] MEDS: Metoprolol Tartrate 25 MG Tablet PO SCH (17:59)
--- NOTE | 2018-06-29 19:27 | ECG ---
Date Performed: 06/28/2018 Time Performed: 09:50:49 PTAGE: 28 years EKG: Sinus rhythm POSSIBLE LEFT ATRIAL ENLARGEMENT POSSIBLE RIGHT VENTRICULAR CONDUCTION DELAY LEFT ANTERIOR FASCICULA R BLOCK ST DEVIATION AND MARKED T-WAVE ABNORMALITY, CONSIDER LATERAL ISCHEMIA ABNORMAL ECG PREVIOUS TRACING : 11/15/2017 07.21 DOCTOR: Jaylon Gilmore Interpretating Date/Time 06/29/2018 19:25:19
[2018-06-29] MEDS: Minoxidil 10 MG Tablet PO SCH (21:09)
[2018-06-29] MEDS: Brimonidine 0.2% Opth Drops 5 ML Bottle LEFT EYE SCH (21:09)
[2018-06-29] MEDS: Timolol 0.5% Drops 5 ML Bottle LEFT EYE SCH (21:10)
[2018-06-29] MEDS: HOMATROPINE LEFT EYE SCH (21:10)
[2018-06-29] MEDS: OPTH LEFT EYE SCH (21:10)
[2018-06-30] MEDS: niCARdipine Inj 25 MG in Sodium Chlor 0.9% Inj 240 ML IV.CONT PRN ×3 (04:41→21:33)
[2018-06-30] MEDS: Dextrose 50% in Water 50 ML Vial IV.PUSH PRN (06:57)
[2018-06-30 07:53] LABS: Albumin 3.6 g/dL (3.4-5.0); Calcium 8.8 mg/dL (8.5-10.1); Carbon Dioxide 26.2 meq/L (21.0-32.0); Phosphorus 5.9 mg/dL (2.5-4.9); Potassium 4.4 meq/L (3.5-5.1)
[2018-06-30] MEDS: Metoprolol Tartrate 25 MG Tablet PO SCH ×3 (08:47→18:07)
[2018-06-30] MEDS: NIFEdipine 10 MG Capsule PO SCH (08:47)
[2018-06-30] MEDS: Sodium Chloride 0.9% 2 ML Flush BID IV.FLUSH SCH ×2 (08:48→22:05)
[2018-06-30] MEDS: Minoxidil 10 MG Tablet PO SCH ×2 (08:48→21:32)
[2018-06-30] MEDS: Senna/Docusate Sodium 8.6/50 MG Tablet PO SCH ×2 (08:49→21:52)
[2018-06-30] MEDS ORDERED: DEXTROSE 10% IV.CONT SCH ×2 (09:00)
[2018-06-30] MEDS ORDERED: RESP: Albuterol Concentrated 2.5 MG/0.5 ML Neb NEB ONE (09:00)
[2018-06-30] MEDS ORDERED: WATER IV.CONT SCH ×2 (09:00)
[2018-06-30] MEDS ORDERED: INSULIN HUMAN REGULAR IV.CONT SCH ×2 (09:00)
[2018-06-30] MEDS: Moxifloxacin 0.5% Opth Drops 3 ML Bottle LEFT EYE SCH ×4 (09:00→21:32)
[2018-06-30] MEDS: OPTH LEFT EYE SCH ×2 (09:23→21:33)
[2018-06-30] MEDS: HOMATROPINE LEFT EYE SCH ×2 (09:23→21:33)
[2018-06-30] MEDS: Brimonidine 0.2% Opth Drops 5 ML Bottle LEFT EYE SCH ×2 (09:23→21:32)
[2018-06-30] MEDS: prednisoLONE Acetate 1% Opth Susp 5 ML Bottle LEFT EYE SCH ×4 (09:24→21:32)
[2018-06-30] MEDS: Timolol 0.5% Drops 5 ML Bottle LEFT EYE SCH ×2 (09:24→21:32)
[2018-06-30 09:47] LABS: Baso # (Auto) 0.2 th/mm3 (0.0-0.2); Baso % (Auto) 1.1 % (0.0-2.0); Eos # (Auto) 0.3 th/mm3 (0.0-0.4); Eos % (Auto) 2.4 % (0.0-4.0); Hematocrit 37.3 % (39.0-51.0); Hemoglobin 11.7 gm/dL (13.0-17.0); Lymph % (Auto) 6.9 % (9.0-44.0); Mean Corpuscular HGB Conc 31.2 % (32.0-36.0); Mean Corpuscular Hemoglobin 22.9 pg (27.0-34.0); Mean Corpuscular Volume 73.4 fL (80.0-100.0); Neut # (Auto) 11.8 th/mm3 (1.8-7.7); Neut % (Auto) 82.6 % (16.0-70.0); Platelet Count 247 th/mm3 (150-450); Red Blood Count 5.08 mil/mm3 (4.50-5.90); Red Cell Distribution Width 32.3 % (11.6-17.2); White Blood Count 14.3 th/mm3 (4.0-11.0)
--- NOTE | 2018-06-30 11:21 | P.PN ---
Subjective Interval history: A lot for retinal detachment, ESRD, diabetes mellitus. Patient is currently resting in bed in prone position. No fever or chills. Expresses desire to go home. Physical Exam Vital signs: Vital Signs 06/29/18 11:17 06/29/18 11:32 06/29/18 11:47 Temperature Pulse Rate 101 H 100 H 98 H Respiratory Rate 14 15 14 Blood Pressure 181/102 H 173/105 H 185/109 H Pulse Oximetry 99 100 99 06/29/18 11:55 06/29/18 12:00 06/29/18 13:00 Temperature 98.4 F Pulse Rate 99 H 97 H 92 H Respiratory Rate 15 13 15 Blood Pressure 180/107 H 180/106 H 187/111 H Pulse Oximetry 99 99 06/29/18 14:00 06/29/18 14:15 06/29/18 14:30 Temperature Pulse Rate 85 85 83 Respiratory Rate 10 L 9 L 9 L Blood Pressure 126/76 126/79 126/81 Pulse Oximetry 99 98 98 06/29/18 14:45 06/29/18 15:00 06/29/18 15:15 Temperature Pulse Rate 88 90 91 H Respiratory Rate 11 L 13 12 Blood Pressure 136/86 146/92 H 147/93 H Pulse Oximetry 98 99 98 06/29/18 15:30 06/29/18 15:45 06/29/18 16:00 Temperature 98.5 F Pulse Rate 96 H 103 H 95 H Respiratory Rate 15 22 18 Blood Pressure 154/91 H 163/93 H 160/90 H Pulse Oximetry 99 98 98 06/29/18 16:15 06/29/18 16:30 06/29/18 16:45 Temperature Pulse Rate 101 H 98 H 95 H Respiratory Rate 14 14 11 L Blood Pressure 147/83 H 143/82 H 135/75 Pulse Oximetry 97 97 96 06/29/18 17:00 06/29/18 17:15 06/29/18 20:00 Temperature 98.1 F Pulse Rate 94 H 95 H 79 Respiratory Rate 11 L 11 L 12 Blood Pressure 130/72 128/75 112/63 Pulse Oximetry 96 97 95 06/29/18 21:44 06/30/18 00:00 06/30/18 04:00 Temperature 98.4 F 98.4 F Pulse Rate 78 86 Respiratory Rate 13 11 L Blood Pressure 131/75 154/90 H Pulse Oximetry 97 06/30/18 10:17 06/30/18 10:19 Temperature Pulse Rate 76 Respiratory Rate 18 Blood Pressure Pulse Oximetry 94 L Intake & Output 06/29/18 06/30/18 06/30/18 18:59 06:59 18:59 Intake Total 1100 / 1100 483 / 483 Output Total 2750 / 2750 2 / 2 Balance -1650 / -1650 481 / 481 Weight 58.6 kg Intake: IV 500 / 500 3 / 3 Cardene Inj 25 MG In NS Inj 240 500 / 500 3 / 3 ML @ 5 MG/HR 50 mls/hr IV.CONT TITRATE PRN Rx#:[id number] Oral 600 / 600 480 / 480 Output: Urine 50 / 50 2 / 2 Hemodialysis Amount 2700 / 2700 Other: Date of Last Bowel Movement 06/28/18 # Bowel Movements 0 Narrative: GENERAL: Pleasant young AA male, alert and oriented, appears in NAD. SKIN: Warm and dry. HEAD: Normocephalic. EYES: Left eye with patch. CARDIOVASCULAR: Regular rate and rhythm without murmurs, gallops, or rubs. Permcath IJ. RESPIRATORY: Breath sounds equal bilaterally. No accessory muscle use. GASTROINTESTINAL: Abdomen soft, non-tender, nondistended. MUSCULOSKELETAL: No cyanosis, or edema. BACK: Nontender without obvious deformity. No CVA tenderness. Results - Labs CBC & Chem 7: 06/30/18 09:23 06/30/18 06:56 Laboratory Results - last 24 hr 06/29/18 06/29/18 06/29/18 12:13 17:32 21:49 WBC RBC Hgb Hct MCV MCH MCHC RDW Plt Count MPV Prelim Diff (Auto) Neut % (Auto) Lymph % (Auto) [place] % (Auto) Eos % (Auto) Baso % (Auto) Neut # (Auto) Lymph # (Auto) [place] # (Auto) Eos # (Auto) Baso # (Auto) Differential Comment Sodium Potassium Chloride Carbon Dioxide Anion Gap BUN Creatinine Estimated GFR POC Glucose 165 H 219 H 394 H Random Glucose Calcium Phosphorus Albumin 06/30/18 06/30/18 06/30/18 06:08 06:56 09:14 WBC RBC Hgb Hct MCV MCH MCHC RDW Plt Count MPV Prelim Diff (Auto) Neut % (Auto) Lymph % (Auto) [place] % (Auto) Eos % (Auto) Baso % (Auto) Neut # (Auto) Lymph # (Auto) [place] # (Auto) Eos # (Auto) Baso # (Auto) Differential Comment Sodium 133 L Potassium 4.4 D Chloride 95 L Carbon Dioxide 26.2 Anion Gap 12 BUN 52 H Creatinine 7.65 H Estimated GFR 10 L POC Glucose 62 L 77 Random Glucose 191 H D Calcium 8.8 Phosphorus 5.9 H D Albumin 3.6 06/30/18 09:23 WBC 14.3 H RBC 5.08 Hgb 11.7 L Hct 37.3 L MCV 73.4 L MCH 22.9 L MCHC 31.2 L RDW 32.3 H Plt Count 247 MPV 8.0 Prelim Diff (Auto) Slide review pending Neut % (Auto) 82.6 H Lymph % (Auto) 6.9 L [place] % (Auto) 7.0 Eos % (Auto) 2.4 Baso % (Auto) 1.1 Neut # (Auto) 11.8 H Lymph # (Auto) 1.0 Assumption # (Auto) 1.0 H Eos # (Auto) 0.3 Baso # (Auto) 0.2 Differential Comment . Sodium Potassium Chloride Carbon Dioxide Anion Gap BUN Creatinine Estimated GFR POC Glucose Random Glucose Calcium Phosphorus Albumin Assessment and Plan - Plan Mr. Cancino is a very pleasant 28 year old male with a history of end-stage renal disease on dialysis on Wednesday, Wednesday, Wednesday, IDDM, and hypertension who presented to the ED being sent by his ophthalmology Dr. for retinal detachment. Retinal detachment: Currently followed by dado operator Dr. Yanes. S/p left eye laser vitrectomy on 06/28/[address] Yanes Keep facing down for 2 weeks after surgery as tolerated Continue postsurgical care per surgeon recommendations. started on moxifloxacin 0.5 % 1 ggt OS QID, Prednisolone acetate 1% 1 ggt OS QID, brimonidine 0.2% 1 ggt OS BID, Timolol 0.5 % 1ggt OS BID Hypertension, poorly controlled. HTN emergency with bilateral vision loss / retinal detachment On cardene drip, wean off as denice. Keep SBP< 140. The patient is with difficult to control BP. Change Nifedipine from short acting to XL, Nifedipine 60mg Qday. Restart home meds hydralazine 100mg TID, minoxidil 10mg TID. Start Clonidine patch. D/C clonidine 0.3mg TID. Diabetes mellitus, insulin dependent Has had hypoglycemia. Will change Levemir from 12 units BID to 12 units QHS. Continue sliding scale insulin. ESRD on dialysis Wednesday, Wednesday, Wednesday Hyperkalemia Consult nephrology Continue HD per nephro Repeat labs shows K+ 4.4. No need for D10+Insulin or Albuterol treatments. Full code. SCDs. Discussed with RN, patient and mother and Nephrology.
[2018-06-30] MEDS: Insulin NovoLOG Aspart Correctional Sugar Inj SQ SCH ×4 (11:23→21:31)
[2018-06-30 11:50] LABS: Ovalocytes 2+
[2018-06-30 11:51] LABS: Dimorphic RBC Present; Tear Drop Cells 2+
--- NOTE | 2018-06-30 13:41 | MP ---
cc: Shad Yanes MD DATE OF OPERATION: 06/28/2018 PREOPERATIVE DIAGNOSES: Severe proliferative diabetic retinopathy, dense vitreous hemorrhage, severe traction and retinal detachment, severe vision loss, left eye. POSTOPERATIVE DIAGNOSES: Severe proliferative diabetic retinopathy, dense vitreous hemorrhage, severe traction and retinal detachment, severe vision loss, left eye. PROCEDURE PERFORMED: Pars plana vitrectomy, complex retinal detachment repair, air fluid exchange, endolaser, insertion of 12% C3F8 gas, left eye. COMPLICATIONS: None. ESTIMATED BLOOD LOSS: 1 mL ANESTHESIA: Dr. Cardoso, general. INDICATIONS FOR PROCEDURE: This is a patient who unfortunately suffered severe vision loss of both eyes. The patient was found to have a longstanding retinal detachment of his right eye with a very guarded prognosis. The patient also developed a tractional retinal severe tractional detachment and dense vitreous hemorrhage on his left eye responsible for severe vision loss. The patient elected for surgical correction understanding the risks, benefits, alternatives and also a guarded prognosis with severity of disease of his left eye. PROCEDURE NOTE: After informed consent was obtained, the patient was brought to the operating room, and general anesthesia was established. The left eye was prepped and draped in sterile fashion. Betadine in the conjunctival fornix. A 3-port pars plana vitrectomy was established with the infusion cannula. Her vitreous was evacuated along with dense vitreous hemorrhage. Tractional complexes were circumscribed and then with vitrectomy and segmenting the distinct epicenters. Each complex was then delaminated with curved scissors, delaminated and removed carefully with curved scissors and grasping forceps. Retina had renewed mobility. Air-fluid exchange was carried out. Retina was reattached and endolaser was applied surrounding the areas of dissection in a PRP fashion, 12% C3F8 gas was instilled. Trocars removed and sclerotomies closed with 7-0 Vicryl suture. Conjunctiva was repaired with 6-0 plain gut. Subconjunctival injection of Ancef and dexamethasone were given. The eye was patched with TobraDex ointment. The patient was brought to the recovery room in stable condition and will continue followup with [facility] for his postoperative care. Shad Yanes MD KEW/ct , 01:15 PM , 01:22 PM
--- NOTE | 2018-06-30 14:50 | P.PNNP ---
Subjective Interval history: Seen in AM. Resting in bed in prone position. Reports some back discomfort from positioning. Denies any shortness of breath, chest pain, nausea, or vomiting. Cardene gtt infusing for blood pressure control. <Ariadna Fraire - Last Filed: 06/30/18 14:39> Physical Exam Vital signs: Vital Signs 06/29/18 14:45 06/29/18 15:00 06/29/18 15:15 Temperature Pulse Rate 88 90 91 H Respiratory Rate 11 L 13 12 Blood Pressure 136/86 146/92 H 147/93 H Pulse Oximetry 98 99 98 06/29/18 15:30 06/29/18 15:45 06/29/18 16:00 Temperature 98.5 F Pulse Rate 96 H 103 H 95 H Respiratory Rate 15 22 18 Blood Pressure 154/91 H 163/93 H 160/90 H Pulse Oximetry 99 98 98 06/29/18 16:15 06/29/18 16:30 06/29/18 16:45 Temperature Pulse Rate 101 H 98 H 95 H Respiratory Rate 14 14 11 L Blood Pressure 147/83 H 143/82 H 135/75 Pulse Oximetry 97 97 96 06/29/18 17:00 06/29/18 17:15 06/29/18 20:00 Temperature 98.1 F Pulse Rate 94 H 95 H 79 Respiratory Rate 11 L 11 L 12 Blood Pressure 130/72 128/75 112/63 Pulse Oximetry 96 97 95 06/29/18 21:44 06/30/18 00:00 06/30/18 04:00 Temperature 98.4 F 98.4 F Pulse Rate 78 86 Respiratory Rate 13 11 L Blood Pressure 131/75 154/90 H Pulse Oximetry 97 06/30/18 10:17 06/30/18 10:19 Temperature Pulse Rate 76 Respiratory Rate 18 Blood Pressure Pulse Oximetry 94 L Intake & Output 06/29/18 06/30/18 06/30/18 18:59 06:59 18:59 Intake Total 1100 / 1100 483 / 483 Output Total 2750 / 2750 2 / 2 Balance -1650 / -1650 481 / 481 Weight 58.6 kg Intake: IV 500 / 500 3 / 3 Cardene Inj 25 MG In NS Inj 240 500 / 500 3 / 3 ML @ 5 MG/HR 50 mls/hr IV.CONT TITRATE PRN Rx#:[id number] Oral 600 / 600 480 / 480 Output: Urine 50 / 50 2 / 2 Hemodialysis Amount 2700 / 2700 Other: Date of Last Bowel Movement 06/28/18 # Bowel Movements 0 Narrative: GENERAL: Alert and oriented, appears in NAD. SKIN: Warm and dry. HEAD: Normocephalic. EYES: Left eye with patch. CARDIOVASCULAR: Regular rate and rhythm without murmurs, gallops, or rubs. Permcath IJ. RESPIRATORY: Breath sounds equal bilaterally. No accessory muscle use. GASTROINTESTINAL: Abdomen soft, non-tender, nondistended. MUSCULOSKELETAL: No cyanosis, or edema. BACK: Nontender without obvious deformity. No CVA tenderness. <Ariadna Fraire - Last Filed: 06/30/18 14:39> Vital signs: Vital Signs 07/04/18 20:00 07/05/18 00:00 07/05/18 04:00 Temperature 99.8 F H 100.0 F H 98.4 F Pulse Rate 70 72 74 Respiratory Rate 18 14 17 Blood Pressure 109/54 L 125/57 L 178/90 H Pulse Oximetry 95 95 97 07/05/18 08:00 07/05/18 12:00 07/05/18 16:00 Temperature 98.9 F 98.9 F 98.9 F Pulse Rate 68 63 70 Respiratory Rate 12 21 21 Blood Pressure 137/65 128/69 123/58 L Pulse Oximetry 98 99 96 Intake & Output 07/04/18 07/05/18 07/05/18 18:59 06:59 18:59 Intake Total 240 / 240 240 / 240 Output Total 1999 0 / 0 Balance -1760 / -1760 240 / 240 Weight 59.9 kg Intake: Oral 240 / 240 240 / 240 Output: Urine 0 / 0 Stool 0 / 0 Hemodialysis Amount 1999 Other: # Voids 0 Date of Last Bowel Movement 07/02/18 07/02/18 07/02/18 <Tom Elise - Last Filed: 07/05/18 17:16> Assessment and Plan - Assessment (1) End-stage renal disease on hemodialysis Code(s): N18.6 - End stage renal disease; Z99.2 - Dependence on renal dialysis Status: Acute Plan: End stage renal disease on hemodialysis Wednesday, Wednesday, Wednesday Permacath IJ Plan Avoid gadolinium Avoid IVF administration Hemodialysis yesterday tolerated well with removal of 2.7 L of fluid, Hyperkalemia resolved, potassium at 4.4 Hemodialysis planned for tomorrow (2) Hypertension Code(s): I10 - Essential (primary) hypertension Status: Acute Plan: On cardene gtt, weaning On hydralazine, metoprolol, minoxidil, and nifedipine. 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 <Ariadna Fraire - Last Filed: 06/30/18 14:39> - Assessment (1) End-stage renal disease on hemodialysis Code(s): N18.6 - End stage renal disease; Z99.2 - Dependence on renal dialysis Status: Acute Plan: Patient seen and examined, agree with above. K is better after HD. Need to decrease K in the diet, explain to the patient. (2) Hypertension Code(s): I10 - Essential (primary) hypertension Status: Acute (3) Insulin dependent diabetes mellitus Code(s): E11.9 - Type 2 diabetes mellitus without complications; Z79.4 - longterm (current) use of insulin Status: Acute (4) Nausea & vomiting Code(s): R11.2 - Nausea with vomiting, unspecified Status: Acute <Tom Elise - Last Filed: 07/05/18 17:16>
[2018-06-30] MEDS: Calcium Acetate 667 MG Capsule PO SCH (18:07)
[2018-06-30] MEDS: Morphine Inj 4 MG/ML Vial IV.PUSH PRN (18:08)
[2018-06-30] MEDS: Sodium Chloride 0.9% 2 ML Flush PRN IV.FLUSH (19:59)
[2018-06-30] MEDS: Insulin Detemir Inj 1,000 UNIT/10 ML Vial SQ SCH (21:53)
[2018-07-01] MEDS: Insulin NovoLOG Aspart Correctional Sugar Inj SQ SCH ×6 (00:59→20:20)
[2018-07-01] MEDS: niCARdipine Inj 25 MG in Sodium Chlor 0.9% Inj 240 ML IV.CONT PRN ×8 (01:31→22:49)
[2018-07-01 04:33] LABS: Calcium 8.6 mg/dL (8.5-10.1); Carbon Dioxide 25.7 meq/L (21.0-32.0); Potassium 4.9 meq/L (3.5-5.1)
[2018-07-01] MEDS: Metoprolol Tartrate 25 MG Tablet PO SCH ×3 (08:02→18:39)
[2018-07-01] MEDS: HOMATROPINE LEFT EYE SCH ×2 (08:03→20:19)
[2018-07-01] MEDS: Minoxidil 10 MG Tablet PO SCH ×2 (08:03→20:19)
[2018-07-01] MEDS: Brimonidine 0.2% Opth Drops 5 ML Bottle LEFT EYE SCH ×2 (08:03→20:18)
[2018-07-01] MEDS: OPTH LEFT EYE SCH ×2 (08:03→20:19)
[2018-07-01] MEDS: Senna/Docusate Sodium 8.6/50 MG Tablet PO SCH ×2 (08:04→20:20)
[2018-07-01] MEDS: Timolol 0.5% Drops 5 ML Bottle LEFT EYE SCH ×2 (08:04→20:18)
[2018-07-01] MEDS: Sodium Chloride 0.9% 2 ML Flush BID IV.FLUSH SCH ×2 (08:04→20:20)
[2018-07-01] MEDS: prednisoLONE Acetate 1% Opth Susp 5 ML Bottle LEFT EYE SCH ×4 (08:04→20:21)
[2018-07-01] MEDS: Calcium Acetate 667 MG Capsule PO SCH ×3 (08:04→18:40)
[2018-07-01] MEDS: Moxifloxacin 0.5% Opth Drops 3 ML Bottle LEFT EYE SCH ×4 (08:05→20:21)
--- NOTE | 2018-07-01 09:45 | P.PNNP ---
Subjective Interval history: Reports nausea and vomiting last night. Continues on Cardene gtt for blood pressure control. Shivering, afebrile. <Ariadna Fraire - Last Filed: 07/01/18 09:39> Physical Exam Vital signs: Vital Signs 06/30/18 10:17 06/30/18 10:19 06/30/18 12:00 Temperature 98.1 F Pulse Rate 76 85 Respiratory Rate 18 21 Blood Pressure 147/89 H Pulse Oximetry 94 L 06/30/18 16:00 06/30/18 20:00 07/01/18 00:00 Temperature 97.9 F 98.3 F 98.3 F Pulse Rate 86 94 H 102 H Respiratory Rate 21 15 10 L Blood Pressure 171/82 H 177/96 H 176/84 H Pulse Oximetry 93 L 07/01/18 04:00 Temperature 98.4 F Pulse Rate 90 Respiratory Rate 22 Blood Pressure 136/68 Pulse Oximetry Intake & Output 06/30/18 07/01/18 07/01/18 18:59 06:59 18:59 Intake Total 790 / 790 990 / 990 250 / 250 Output Total 0 / 0 Balance 790 / 790 990 / 990 250 / 250 Weight 56.7 kg Intake: IV 250 / 250 750 / 750 250 / 250 Cardene Inj 25 MG In NS Inj 240 250 / 250 750 / 750 250 / 250 ML @ 5 MG/HR 50 mls/hr IV.CONT TITRATE PRN Rx#:[id number] Oral 540 / 540 240 / 240 Output: Stool 0 / 0 Other: # Voids 4 1 Date of Last Bowel Movement 06/28/18 06/30/18 # Bowel Movements 0 1 # Emeses 1 6 Narrative: GENERAL: Alert and oriented. SKIN: Warm and dry. HEAD: Normocephalic. EYES: Left eye with patch. CARDIOVASCULAR: Regular rate and rhythm without murmurs, gallops, or rubs. Permcath IJ. RESPIRATORY: Breath sounds equal bilaterally. No accessory muscle use. GASTROINTESTINAL: Abdomen soft, non-tender, nondistended. MUSCULOSKELETAL: No cyanosis, or edema. BACK: Nontender without obvious deformity. No CVA tenderness. <Ariadna Fraire - Last Filed: 07/01/18 09:39> Vital signs: Vital Signs 07/04/18 20:00 07/05/18 00:00 07/05/18 04:00 Temperature 99.8 F H 100.0 F H 98.4 F Pulse Rate 70 72 74 Respiratory Rate 18 14 17 Blood Pressure 109/54 L 125/57 L 178/90 H Pulse Oximetry 95 95 97 07/05/18 08:00 07/05/18 12:00 07/05/18 16:00 Temperature 98.9 F 98.9 F 98.9 F Pulse Rate 68 63 70 Respiratory Rate 12 21 21 Blood Pressure 137/65 128/69 123/58 L Pulse Oximetry 98 99 96 Intake & Output 07/04/18 07/05/18 07/05/18 18:59 06:59 18:59 Intake Total 240 / 240 240 / 240 Output Total 1999 0 / 0 Balance -1760 / -1760 240 / 240 Weight 59.9 kg Intake: Oral 240 / 240 240 / 240 Output: Urine 0 / 0 Stool 0 / 0 Hemodialysis Amount 1999 Other: # Voids 0 Date of Last Bowel Movement 07/02/18 07/02/18 07/02/18 <Tom Elise - Last Filed: 07/05/18 17:24> Assessment and Plan - Assessment (1) End-stage renal disease on hemodialysis Code(s): N18.6 - End stage renal disease; Z99.2 - Dependence on renal dialysis Status: Acute Plan: End stage renal disease on hemodialysis Wednesday, Wednesday, Wednesday Permacath IJ Plan Avoid gadolinium Avoid IVF administration Patient shivering this morning, will obtain blood cultures. Seen during hemodialysis will remove fluid as tolerated. (2) Hypertension Code(s): I10 - Essential (primary) hypertension Status: Acute Plan: On cardene gtt, weaning On hydralazine, metoprolol, minoxidil, and nifedipine. 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 <Ariadna Fraire - Last Filed: 07/01/18 09:39> - Assessment (1) End-stage renal disease on hemodialysis Code(s): N18.6 - End stage renal disease; Z99.2 - Dependence on renal dialysis Status: Acute Plan: Patient seen and examined, agree with above. HD done, tolerated well. Blood cultures done, remain afebrile. 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
[2018-07-01] MEDS: Heparin 10,000 UNITS/10 ML Vial (for IV use) OTHER PRN (12:13)
[2018-07-01] MEDS: Morphine Inj 4 MG/ML Vial IV.PUSH PRN ×2 (13:38→22:26)
[2018-07-01] MEDS: Insulin Detemir Inj 1,000 UNIT/10 ML Vial SQ SCH (20:19)
--- NOTE | 2018-07-01 22:04 | P.PN ---
Subjective Interval history: Follow up for retinal detachment, ESRD, diabetes mellitus. Patient is sitting at the side of the bed and reports multiple episodes of nausea and vomiting. No fever, chills. Mother at bedside. Physical Exam Vital signs: Vital Signs 07/01/18 00:00 07/01/18 04:00 07/01/18 08:00 Temperature 98.3 F 98.4 F 99.0 F Pulse Rate 102 H 90 Respiratory Rate 10 L 22 22 Blood Pressure 176/84 H 136/68 171/79 H Pulse Oximetry 07/01/18 09:41 07/01/18 12:00 07/01/18 16:00 Temperature 98.0 F 98.1 F Pulse Rate Respiratory Rate 22 21 Blood Pressure 165/79 H 117/65 Pulse Oximetry 99 Intake & Output 07/01/18 07/01/18 07/02/18 06:59 18:59 06:59 Intake Total 990 / 990 1190 / 1190 250 / 250 Output Total 4200 / 4200 Balance 990 / 990 -3010 / -3010 250 / 250 Weight 56.7 kg Intake: IV 750 / 750 750 / 750 250 / 250 Cardene Inj 25 MG In NS Inj 240 750 / 750 750 / 750 250 / 250 ML @ 5 MG/HR 50 mls/hr IV.CONT TITRATE PRN Rx#:[id number] Oral 240 / 240 440 / 440 Output: Emesis 200 / 200 Hemodialysis Amount 4000 / 4000 Other: # Voids 1 3 Date of Last Bowel Movement 06/30/18 06/30/18 # Bowel Movements 1 # Emeses 6 5 Narrative: GENERAL: Alert and oriented. SKIN: Warm and dry. HEAD: Normocephalic. EYES: Left eye with patch. CARDIOVASCULAR: Regular rate and rhythm without murmurs, gallops, or rubs. Permcath IJ. RESPIRATORY: Breath sounds equal bilaterally. No accessory muscle use. GASTROINTESTINAL: Abdomen soft, non-tender, nondistended. MUSCULOSKELETAL: No cyanosis, or edema. BACK: Nontender without obvious deformity. No CVA tenderness. Results - Labs CBC & Chem 7: 06/30/18 09:23 07/01/18 02:38 Laboratory Results - last 24 hr 06/30/18 07/01/18 07/01/18 18:22 00:32 02:38 Sodium 138 Potassium 4.9 Chloride 94 L Carbon Dioxide 25.7 Anion Gap 18 H BUN 64 H Creatinine 9.82 H Estimated GFR 8 L POC Glucose 244 H 204 H Random Glucose 241 H Calcium 8.6 07/01/18 07/01/18 07/01/18 06:20 13:50 18:46 Sodium Potassium Chloride Carbon Dioxide Anion Gap BUN Creatinine Estimated GFR POC Glucose 263 H 146 H 205 H Random Glucose Calcium 07/01/18 20:10 Sodium Potassium Chloride Carbon Dioxide Anion Gap BUN Creatinine Estimated GFR POC Glucose 149 H Random Glucose Calcium Assessment and Plan - Plan Mr. Cancino is a very pleasant 28 year old male with a history of end-stage renal disease on dialysis on Wednesday, Wednesday, Wednesday, IDDM, and hypertension who presented to the ED being sent by his ophthalmology Dr. for retinal detachment. Nausea/vomiting Nausea meds are not working. Will try a few doses of dexamethasone to see if it helps. Retinal detachment: Currently followed by hepatology physician Dr. Yanes. S/p left eye laser vitrectomy on 06/28/[address] Yanes Keep facing down for 2 weeks after surgery as tolerated Continue postsurgical care per surgeon recommendations. started on moxifloxacin 0.5 % 1 ggt OS QID, Prednisolone acetate 1% 1 ggt OS QID, brimonidine 0.2% 1 ggt OS BID, Timolol 0.5 % 1ggt OS BID Hypertension, poorly controlled. HTN emergency with bilateral vision loss / retinal detachment On cardene drip, wean off as denice. Keep SBP< 140. The patient is with difficult to control BP. Continue Nifedipine 60mg Qday. Restart home meds hydralazine 100mg TID, minoxidil 10mg TID. continue Clonidine patch Diabetes mellitus, insulin dependent Has had hypoglycemia. Will change Levemir from 12 units BID to 12 units QHS. Continue sliding scale insulin. ESRD on dialysis Wednesday, Wednesday, Wednesday Hyperkalemia Consult nephrology Continue HD per nephro Repeat labs shows K+ 4.4. No need for D10+Insulin or Albuterol treatments. Full code. SCDs.
[2018-07-02] MEDS: niCARdipine Inj 25 MG in Sodium Chlor 0.9% Inj 240 ML IV.CONT PRN ×3 (04:04→10:45)
[2018-07-02] MEDS: Metoprolol Tartrate 25 MG Tablet PO SCH ×3 (08:28→18:24)
[2018-07-02] MEDS: Calcium Acetate 667 MG Capsule PO SCH ×3 (08:28→18:24)
[2018-07-02] MEDS: Senna/Docusate Sodium 8.6/50 MG Tablet PO SCH ×2 (08:28→21:07)
[2018-07-02] MEDS: prednisoLONE Acetate 1% Opth Susp 5 ML Bottle LEFT EYE SCH ×4 (08:29→21:08)
[2018-07-02] MEDS: Sodium Chloride 0.9% 2 ML Flush BID IV.FLUSH SCH ×2 (08:29→21:08)
[2018-07-02] MEDS: HOMATROPINE LEFT EYE SCH ×2 (08:29→21:08)
[2018-07-02] MEDS: Moxifloxacin 0.5% Opth Drops 3 ML Bottle LEFT EYE SCH ×3 (08:29→18:24)
[2018-07-02] MEDS: Brimonidine 0.2% Opth Drops 5 ML Bottle LEFT EYE SCH ×2 (08:29→21:07)
[2018-07-02] MEDS: OPTH LEFT EYE SCH ×2 (08:29→21:08)
[2018-07-02] MEDS: Timolol 0.5% Drops 5 ML Bottle LEFT EYE SCH ×2 (08:29→21:07)
[2018-07-02] MEDS: Minoxidil 10 MG Tablet PO SCH ×2 (08:31→21:07)
[2018-07-02] MEDS: Insulin NovoLOG Aspart Correctional Sugar Inj SQ SCH ×3 (08:42→21:09)
--- NOTE | 2018-07-02 10:50 | P.PNNP ---
Subjective Interval history: Patient is alert, has nausea, and vomited in AM, no SOB, has headache. Physical Exam Vital signs: Vital Signs 07/01/18 12:00 07/01/18 16:00 07/01/18 20:00 Temperature 98.0 F 98.1 F 98.8 F Pulse Rate 87 Respiratory Rate 22 21 21 Blood Pressure 165/79 H 117/65 144/74 H Pulse Oximetry 100 07/02/18 00:00 07/02/18 04:00 Temperature 98.7 F 98.6 F Pulse Rate 87 75 Respiratory Rate 14 14 Blood Pressure 146/80 H 132/65 Pulse Oximetry Intake & Output 07/01/18 07/02/18 07/02/18 18:59 06:59 18:59 Intake Total 1190 / 1190 1000 / 1000 Output Total 4200 / 4200 0 / 0 Balance -3010 / -3010 1000 / 1000 Weight 53.7 kg Intake: IV 750 / 750 1000 / 1000 Cardene Inj 25 MG In NS Inj 240 750 / 750 1000 / 1000 ML @ 5 MG/HR 50 mls/hr IV.CONT TITRATE PRN Rx#:[id number] Oral 440 / 440 Output: Urine 0 / 0 Emesis 200 / 200 Hemodialysis Amount 4000 / 4000 Other: # Voids 3 Date of Last Bowel Movement 06/30/18 06/30/18 # Emeses 5 5 Narrative: GENERAL: Alert and oriented. SKIN: Warm and dry. HEAD: Normocephalic. EYES: Left eye with patch. CARDIOVASCULAR: Regular rate and rhythm without murmurs, gallops, or rubs. Permcath IJ. RESPIRATORY: Breath sounds equal bilaterally. No accessory muscle use. GASTROINTESTINAL: Abdomen soft, non-tender, nondistended. MUSCULOSKELETAL: No cyanosis, or edema. BACK: Nontender without obvious deformity. No CVA tenderness. Assessment and Plan - Assessment (1) End-stage renal disease on hemodialysis Code(s): N18.6 - End stage renal disease; Z99.2 - Dependence on renal dialysis Status: Acute Plan: End stage renal disease on hemodialysis Wednesday, Wednesday, Wednesday Permacath IJ Plan Avoid gadolinium Avoid IVF administration HD done yesterday. Blood cultures negative so far. BS is better, BP is still elevated. On Nicardipine, along with PO Hydralazine, Labetalol and clonidine. Add Nifedipine, taper off Nicardipine as tolerated. (2) Hypertension Code(s): I10 - Essential (primary) hypertension Status: Acute Plan: On cardene gtt, weaning On hydralazine, metoprolol, minoxidil, and nifedipine. metoprolol increased (3) Insulin dependent diabetes mellitus Code(s): E11.9 - Type 2 diabetes mellitus without complications; Z79.4 - longterm (current) use of insulin Status: Acute Plan: Maintain blood sugars between 140 mg/dl to 180 mg/dl.
[2018-07-02 11:07] LABS: Calcium 8.9 mg/dL (8.5-10.1); Carbon Dioxide 20.3 meq/L (21.0-32.0); Potassium 5.6 meq/L (3.5-5.1)
--- NOTE | 2018-07-02 15:37 | P.PN ---
Subjective Interval history: Follow up for retinal detachment, ESRD, diabetes mellitus. Patient complains of a heart clinical nausea vomiting. He denies any chest pain, shortness of breath, fever or chills. Physical Exam Vital signs: Vital Signs 07/01/18 16:00 07/01/18 20:00 07/02/18 00:00 Temperature 98.1 F 98.8 F 98.7 F Pulse Rate 87 87 Respiratory Rate 21 21 14 Blood Pressure 117/65 144/74 H 146/80 H Pulse Oximetry 100 07/02/18 04:00 Temperature 98.6 F Pulse Rate 75 Respiratory Rate 14 Blood Pressure 132/65 Pulse Oximetry Intake & Output 07/01/18 07/02/18 07/02/18 18:59 06:59 18:59 Intake Total 1190 / 1190 1000 / 1000 250 / 250 Output Total 4200 / 4200 0 / 0 Balance -3010 / -3010 1000 / 1000 250 / 250 Weight 53.7 kg Intake: IV 750 / 750 1000 / 1000 250 / 250 Cardene Inj 25 MG In NS Inj 240 750 / 750 1000 / 1000 250 / 250 ML @ 5 MG/HR 50 mls/hr IV.CONT TITRATE PRN Rx#:[id number] Oral 440 / 440 Output: Urine 0 / 0 Emesis 200 / 200 Hemodialysis Amount 4000 / 4000 Other: # Voids 3 Date of Last Bowel Movement 06/30/18 06/30/18 # Emeses 5 5 Narrative: GENERAL: Alert and oriented. Having nausea/vomiting. SKIN: Warm and dry. HEAD: Normocephalic. EYES: Left eye with patch. CARDIOVASCULAR: Regular rate and rhythm without murmurs, gallops, or rubs. Permcath IJ. RESPIRATORY: Breath sounds equal bilaterally. No accessory muscle use. GASTROINTESTINAL: Abdomen soft, non-tender, nondistended. MUSCULOSKELETAL: No cyanosis, or edema. BACK: Nontender without obvious deformity. No CVA tenderness. Results - Labs CBC & Chem 7: 06/30/18 09:23 07/02/18 09:44 Laboratory Results - last 24 hr 06/30/18 07/01/18 07/01/18 18:22 18:46 20:10 Sodium Potassium Chloride Carbon Dioxide Anion Gap BUN Creatinine Estimated GFR POC Glucose 244 H 205 H 149 H Random Glucose Calcium 07/02/18 07/02/18 07/02/18 06:39 08:40 09:44 Sodium 136 Potassium 5.6 H Chloride 90 L Carbon Dioxide 20.3 L Anion Gap 26 H BUN 72 H Creatinine 8.17 H Estimated GFR 10 L POC Glucose 266 H 295 H Random Glucose 311 H Calcium 8.9 07/02/18 14:21 Sodium Potassium Chloride Carbon Dioxide Anion Gap BUN Creatinine Estimated GFR POC Glucose 271 H Random Glucose Calcium Microbiology 07/01/18 15:25 Blood - Other Aerobic Blood Culture - Preliminary No growth in 1 day 07/01/18 15:25 Blood - Other Anaerobic Blood Culture - Preliminary No growth in 1 day 07/01/18 10:48 Blood - Other Aerobic Blood Culture - Preliminary No growth in 1 day 07/01/18 10:48 Blood - Other Anaerobic Blood Culture - Preliminary No growth in 1 day Assessment and Plan - Plan Mr. Cancino is a very pleasant 28 year old male with a history of end-stage renal disease on dialysis on Wednesday, Wednesday, Wednesday, IDDM, and hypertension who presented to the ED being sent by his ophthalmology Dr. for retinal detachment. Nausea/vomiting Nausea meds are not working. d/c Decadron. Will try Reglan IV. Patient already Zofran and Phenergan. Retinal detachment: Currently followed by respiratory technician Dr. Yanes. S/p left eye laser vitrectomy on 06/28/[address] Yanes Keep facing down for 2 weeks after surgery as tolerated Continue postsurgical care per surgeon recommendations. started on moxifloxacin 0.5 % 1 ggt OS QID, Prednisolone acetate 1% 1 ggt OS QID, brimonidine 0.2% 1 ggt OS BID, Timolol 0.5 % 1ggt OS BID Hypertension, poorly controlled. HTN emergency with bilateral vision loss / retinal detachment On cardene drip, wean off as deniec. Keep SBP< 140. The patient is with difficult to control BP. Continue Nifedipine 60mg Qday. Restart home meds hydralazine 100mg TID, minoxidil 10mg TID. continue Clonidine patch Diabetes mellitus, insulin dependent Has had hypoglycemia. Will change Levemir from 12 units BID to 12 units QHS. Continue sliding scale insulin. ESRD on dialysis Wednesday, Wednesday, Wednesday Hyperkalemia Consult nephrology Continue HD per nephro Repeat labs shows K+ 4.4. No need for D10+Insulin or Albuterol treatments. Full code. SCDs.
[2018-07-02] MEDS: Morphine Inj 4 MG/ML Vial IV.PUSH PRN ×2 (16:09→21:25)
[2018-07-02] MEDS: Insulin Detemir Inj 1,000 UNIT/10 ML Vial SQ SCH (21:07)
[2018-07-03] MEDS: Sodium Chloride 0.9% 2 ML Flush PRN IV.FLUSH (00:33)
[2018-07-03] MEDS: Moxifloxacin 0.5% Opth Drops 3 ML Bottle LEFT EYE SCH ×5 (01:41→22:01)
[2018-07-03 05:01] LABS: Calcium 8.4 mg/dL (8.5-10.1); Carbon Dioxide 28.5 meq/L (21.0-32.0); Potassium 6.5 meq/L (3.5-5.1)
[2018-07-03] MEDS: Morphine Inj 4 MG/ML Vial IV.PUSH PRN (06:15)
--- NOTE | 2018-07-03 10:36 | P.PNNP ---
Subjective Interval history: Patient is alert, has nausea, no SOB. Physical Exam Vital signs: Vital Signs 07/02/18 20:00 07/02/18 20:40 07/03/18 00:00 Temperature 97.8 F 97.9 F Pulse Rate 52 L 58 L Respiratory Rate 25 H 24 Blood Pressure 132/66 170/85 H Pulse Oximetry 92 L 91 L 94 L 07/03/18 04:00 07/03/18 06:20 Temperature 97.9 F Pulse Rate 50 L Respiratory Rate 22 23 Blood Pressure 151/80 H Pulse Oximetry 94 L Intake & Output 07/02/18 07/03/18 07/03/18 18:59 06:59 18:59 Intake Total 250 / 250 120 / 120 Output Total 0 / 0 Balance 250 / 250 120 / 120 Weight 54.7 kg Intake: IV 250 / 250 Cardene Inj 25 MG In NS Inj 240 250 / 250 ML @ 5 MG/HR 50 mls/hr IV.CONT TITRATE PRN Rx#:[id number] Oral 120 / 120 Output: Urine 0 / 0 Other: # Voids 0 Date of Last Bowel Movement 07/02/18 # Bowel Movements 0 Narrative: GENERAL: Alert and oriented. Having nausea/vomiting. SKIN: Warm and dry. HEAD: Normocephalic. EYES: Left eye with patch. CARDIOVASCULAR: Regular rate and rhythm without murmurs, gallops, or rubs. Permcath IJ. RESPIRATORY: Breath sounds equal bilaterally. No accessory muscle use. GASTROINTESTINAL: Abdomen soft, non-tender, nondistended. MUSCULOSKELETAL: No cyanosis, or edema. BACK: Nontender without obvious deformity. No CVA tenderness. Assessment and Plan - Assessment (1) End-stage renal disease on hemodialysis Code(s): N18.6 - End stage renal disease; Z99.2 - Dependence on renal dialysis Status: Acute Plan: End stage renal disease on hemodialysis Wednesday, Wednesday, Wednesday Permacath IJ Plan Avoid gadolinium Avoid IVF administration HD done on Wednesday, K is 6.5, will give short HD treatment today. Blood cultures negative so far. BS is better, BP is still elevated. On Nicardipine, along with PO Hydralazine, Labetalol and clonidine. started on Nifedipine, taper off Nicardipine as tolerated. (2) Hypertension Code(s): I10 - Essential (primary) hypertension Status: Acute Plan: On cardene gtt, weaning On hydralazine, metoprolol, minoxidil, and nifedipine. metoprolol increased (3) Insulin dependent diabetes mellitus Code(s): E11.9 - Type 2 diabetes mellitus without complications; Z79.4 - residential (current) use of insulin Status: Acute Plan: Maintain blood sugars between 140 mg/dl to 180 mg/dl.
[2018-07-03] MEDS: Heparin 10,000 UNITS/10 ML Vial (for IV use) OTHER PRN (12:28)
[2018-07-03] MEDS: Brimonidine 0.2% Opth Drops 5 ML Bottle LEFT EYE SCH ×2 (13:53→22:04)
[2018-07-03] MEDS: Insulin NovoLOG Aspart Correctional Sugar Inj SQ SCH ×5 (13:53→22:09)
[2018-07-03] MEDS: Senna/Docusate Sodium 8.6/50 MG Tablet PO SCH ×2 (13:54→23:24)
[2018-07-03] MEDS: Sodium Chloride 0.9% 2 ML Flush BID IV.FLUSH SCH ×2 (13:54→23:19)
[2018-07-03] MEDS: HOMATROPINE LEFT EYE SCH ×2 (13:54→21:54)
[2018-07-03] MEDS: OPTH LEFT EYE SCH ×2 (13:54→21:54)
[2018-07-03] MEDS: prednisoLONE Acetate 1% Opth Susp 5 ML Bottle LEFT EYE SCH ×4 (13:54→22:01)
[2018-07-03] MEDS: Metoprolol Tartrate 25 MG Tablet PO SCH ×3 (13:54→18:38)
[2018-07-03] MEDS: Calcium Acetate 667 MG Capsule PO SCH ×3 (13:54→18:39)
[2018-07-03] MEDS: Minoxidil 10 MG Tablet PO SCH ×2 (13:54→22:08)
[2018-07-03] MEDS: Timolol 0.5% Drops 5 ML Bottle LEFT EYE SCH ×2 (13:55→21:54)
[2018-07-03] MEDS ORDERED: Haloperidol Inj 5 MG/ML Ampul IM ONE (15:30)
[2018-07-03] MEDS: Labetalol HCl Inj 100 MG/20 ML Vial IV.PUSH PRN (15:36)
[2018-07-03] MEDS ORDERED: Dextrose 5%/Lactated Ringer's 1,000 ML IV.CONT SCH (16:00)
--- NOTE | 2018-07-03 16:47 | P.PN ---
Subjective Interval history: Follow up for retinal detachment, ESRD, diabetes mellitus. Patient continues to have nausea and vomiting. No fever or chills. Mother is at bedside. Physical Exam Vital signs: Vital Signs 07/02/18 20:00 07/02/18 20:40 07/03/18 00:00 Temperature 97.8 F 97.9 F Pulse Rate 52 L 58 L Respiratory Rate 25 H 24 Blood Pressure 132/66 170/85 H Pulse Oximetry 92 L 91 L 94 L 07/03/18 04:00 07/03/18 06:20 Temperature 97.9 F Pulse Rate 50 L Respiratory Rate 22 23 Blood Pressure 151/80 H Pulse Oximetry 94 L Intake & Output 07/02/18 07/03/18 07/03/18 18:59 06:59 18:59 Intake Total 250 / 250 120 / 120 Output Total 0 / 0 3000 / 3000 Balance 250 / 250 120 / 120 -3000 / -3000 Weight 54.7 kg Intake: IV 250 / 250 Cardene Inj 25 MG In NS Inj 240 250 / 250 ML @ 5 MG/HR 50 mls/hr IV.CONT TITRATE PRN Rx#:[id number] Oral 120 / 120 Output: Urine 0 / 0 Hemodialysis Amount 3000 / 3000 Other: # Voids 0 Date of Last Bowel Movement 07/02/18 # Bowel Movements 0 Narrative: GENERAL: Alert and oriented. Having nausea/vomiting. SKIN: Warm and dry. HEAD: Normocephalic. EYES: Left eye with patch. CARDIOVASCULAR: Regular rate and rhythm without murmurs, gallops, or rubs. Permcath IJ. RESPIRATORY: Breath sounds equal bilaterally. No accessory muscle use. GASTROINTESTINAL: Abdomen soft, non-tender, nondistended. MUSCULOSKELETAL: No cyanosis, or edema. BACK: Nontender without obvious deformity. No CVA tenderness. Results - Labs CBC & Chem 7: 06/30/18 09:23 07/03/18 04:07 Laboratory Results - last 24 hr 07/02/18 07/03/18 20:53 04:07 Sodium 134 L Potassium 6.5 H D Chloride 91 L Carbon Dioxide 28.5 Anion Gap 15 BUN 106 H Creatinine 9.66 H Estimated GFR 8 L POC Glucose 244 H Random Glucose 73 L D Calcium 8.4 L Microbiology 07/01/18 15:25 Blood - Other Aerobic Blood Culture - Preliminary No growth in 2 days 07/01/18 15:25 Blood - Other Anaerobic Blood Culture - Preliminary No growth in 2 days 07/01/18 10:48 Blood - Other Aerobic Blood Culture - Preliminary gram positive cocci 07/01/18 10:48 Blood - Other Anaerobic Blood Culture - Preliminary No growth in 2 days Assessment and Plan - Plan Mr. Cancino is a very pleasant 28 year old male with a history of end-stage renal disease on dialysis on Wednesday, Wednesday, Wednesday, IDDM, and hypertension who presented to the ED being sent by his ophthalmology Dr. for retinal detachment. Nausea/vomiting Possibly due to gastroparesis. Continue Reglan, will schedule Reglan SQ. Start D5LR 100cc/hour Sopalamine patch Will give one dose of Haldol to see if this helps as well. Retinal detachment: Currently followed by car filler Dr. Yanes. S/p left eye laser vitrectomy on 06/28/[address] Yanes Keep facing down for 2 weeks after surgery as tolerated Continue postsurgical care per surgeon recommendations. started on moxifloxacin 0.5 % 1 ggt OS QID, Prednisolone acetate 1% 1 ggt OS QID, brimonidine 0.2% 1 ggt OS BID, Timolol 0.5 % 1ggt OS BID Hypertension, poorly controlled. HTN emergency with bilateral vision loss / retinal detachment On cardene drip, wean off as denice. Keep SBP< 140. The patient is with difficult to control BP. Continue Nifedipine 60mg Qday. Restart home meds hydralazine 100mg TID, minoxidil 10mg TID. continue Clonidine patch Diabetes mellitus, insulin dependent Has had hypoglycemia. Will change Levemir from 12 units BID to 12 units QHS. Continue sliding scale insulin. ESRD on dialysis Wednesday, Wednesday, Wednesday Hyperkalemia Consult nephrology Continue HD per nephro Full code. SCDs.
[2018-07-03] MEDS: Scopalamine 1.5 MG Patch T-DERMAL SCH (17:40)
[2018-07-03] MEDS: Insulin Detemir Inj 1,000 UNIT/10 ML Vial SQ SCH (22:08)
[2018-07-03] MEDS ORDERED: ChlorproMAZINE 25 MG Tablet PO ONE (23:00)
[2018-07-04 07:09] LABS: Calcium 7.9 mg/dL (8.5-10.1); Carbon Dioxide 25.6 meq/L (21.0-32.0); Potassium 5.5 meq/L (3.5-5.1)
[2018-07-04] MEDS: Timolol 0.5% Drops 5 ML Bottle LEFT EYE SCH ×2 (09:00→21:38)
[2018-07-04] MEDS: Brimonidine 0.2% Opth Drops 5 ML Bottle LEFT EYE SCH ×2 (09:00→21:37)
[2018-07-04] MEDS: HOMATROPINE LEFT EYE SCH ×2 (09:05→21:37)
[2018-07-04] MEDS: OPTH LEFT EYE SCH ×2 (09:05→21:37)
[2018-07-04] MEDS: prednisoLONE Acetate 1% Opth Susp 5 ML Bottle LEFT EYE SCH ×4 (09:10→21:37)
[2018-07-04] MEDS: Moxifloxacin 0.5% Opth Drops 3 ML Bottle LEFT EYE SCH ×4 (09:15→21:38)
--- NOTE | 2018-07-04 10:59 | P.PNNP ---
Subjective Interval history: In prone position, seen during hemodialysis. Continues to have abdominal discomfort. Able to eat small amount for breakfast. <Ariadna Fraire - Last Filed: 07/04/18 10:54> Physical Exam Vital signs: Vital Signs 07/03/18 12:00 07/03/18 16:00 07/03/18 20:00 Temperature 97.8 F 98.4 F 98.2 F Pulse Rate 70 76 56 L Respiratory Rate 14 16 19 Blood Pressure 156/85 H 119/85 120/62 Pulse Oximetry 94 L 96 99 07/04/18 00:00 07/04/18 04:00 07/04/18 09:23 Temperature 98.4 F Pulse Rate 58 L 60 Respiratory Rate 14 11 L Blood Pressure 134/68 130/60 Pulse Oximetry 93 L 92 L 96 Intake & Output 07/03/18 07/04/18 07/04/18 18:59 06:59 18:59 Intake Total 400 / 400 320 / 320 Output Total 6080 / 6080 0 / 0 Balance -5680 / -5680 320 / 320 Weight 55.5 kg Intake: Oral 400 / 400 320 / 320 Output: Urine 0 / 0 0 / 0 Stool 0 / 0 0 / 0 Emesis 75 / 75 Hemodialysis Amount 6000 / 6000 Estimated Blood Loss 5 / 5 Other: # Voids 0 Date of Last Bowel Movement 07/02/18 07/02/18 # Bowel Movements 0 0 # Emeses 2 Narrative: GENERAL: Alert and oriented. Having nausea/vomiting. SKIN: Warm and dry. HEAD: Normocephalic. EYES: Left eye with patch. CARDIOVASCULAR: Regular rate and rhythm without murmurs, gallops, or rubs. Permcath IJ. RESPIRATORY: Breath sounds equal bilaterally. No accessory muscle use. GASTROINTESTINAL: Abdomen soft, non-tender, nondistended. MUSCULOSKELETAL: No cyanosis, or edema. BACK: Nontender without obvious deformity. No CVA tenderness. <Ariadna Fraire - Last Filed: 07/04/18 10:54> Vital signs: Vital Signs 07/06/18 22:39 07/07/18 00:00 07/07/18 04:00 Temperature 99.4 F 99.2 F Pulse Rate 72 70 Respiratory Rate 16 18 Blood Pressure 119/60 150/83 H Pulse Oximetry 96 07/07/18 07:48 07/07/18 08:00 07/07/18 12:00 Temperature 99.1 F 98.7 F Pulse Rate 76 79 Respiratory Rate 20 12 Blood Pressure 148/73 H 135/81 Pulse Oximetry 100 100 100 07/07/18 16:00 Temperature 98.7 F Pulse Rate 63 Respiratory Rate 13 Blood Pressure 118/59 L Pulse Oximetry 100 Intake & Output 07/07/18 07/07/18 07/08/18 06:59 18:59 06:59 Intake Total 720 / 720 360 / 360 Output Total 0 / 0 Balance 720 / 720 360 / 360 Weight 57.7 kg Intake: Oral 720 / 720 360 / 360 Output: Urine 0 / 0 Other: # Voids 2 Date of Last Bowel Movement 07/02/18 07/02/18 <Tom Elise - Last Filed: 07/07/18 21:32> Assessment and Plan - Assessment (1) End-stage renal disease on hemodialysis Code(s): N18.6 - End stage renal disease; Z99.2 - Dependence on renal dialysis Status: Acute Plan: End stage renal disease on hemodialysis Wednesday, Wednesday, Wednesday Permacath IJ Plan Avoid gadolinium Avoid IVF administration, IVF discontinued. Hyperkalemia at 5.5, K bath adjusted with dialysis Seen during hemodialysis will remove fluid as tolerated. (2) Hypertension Code(s): I10 - Essential (primary) hypertension Status: Acute Plan: Blood pressure better controlled Cardene gtt off. 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 (4) Nausea & vomiting Code(s): R11.2 - Nausea with vomiting, unspecified Status: Acute Plan: CT 0f abdomen and pelvis ordered. <Ariadna Fraire - Last Filed: 07/04/18 10:54> - Assessment (1) End-stage renal disease on hemodialysis Code(s): N18.6 - End stage renal disease; Z99.2 - Dependence on renal dialysis Status: Acute Plan: Patient seen and examined, agree with above. HD with low K. BP is better. 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
[2018-07-04] MEDS: Heparin 10,000 UNITS/10 ML Vial (for IV use) OTHER PRN (11:07)
[2018-07-04] MEDS ORDERED: Diatrizoate Meglum/Diatrizoate Sod Liq 9 ML UDC PO ONE (11:45)
[2018-07-04] MEDS: Insulin NovoLOG Aspart Correctional Sugar Inj SQ SCH ×4 (11:59→21:55)
[2018-07-04] MEDS: Senna/Docusate Sodium 8.6/50 MG Tablet PO SCH ×2 (12:01→21:37)
[2018-07-04] MEDS: Sodium Chloride 0.9% 2 ML Flush BID IV.FLUSH SCH ×2 (12:01→21:37)
[2018-07-04] MEDS: Minoxidil 10 MG Tablet PO SCH ×2 (12:01→21:37)
[2018-07-04] MEDS: Calcium Acetate 667 MG Capsule PO SCH ×3 (12:02→18:55)
[2018-07-04] MEDS: Metoprolol Tartrate 25 MG Tablet PO SCH ×3 (12:03→18:55)
[2018-07-04] MEDS: Acetaminophen 325 MG Tablet PO PRN (12:24)
--- NOTE | 2018-07-04 18:23 | P.PN ---
Subjective Interval history: Follow up for retinal detachment, ESRD, diabetes mellitus. Patient is currently sleeping. Discussed with RN. Patient is not eating much. Had fever of 101.3F. Physical Exam Vital signs: Vital Signs 07/03/18 20:00 07/04/18 00:00 07/04/18 04:00 Temperature 98.2 F 98.4 F Pulse Rate 56 L 58 L 60 Respiratory Rate 19 14 11 L Blood Pressure 120/62 134/68 130/60 Pulse Oximetry 99 93 L 92 L 07/04/18 08:00 07/04/18 09:23 07/04/18 12:00 Temperature 100.1 F H 101.3 F H Pulse Rate 62 80 Respiratory Rate 19 13 Blood Pressure 138/72 159/77 H Pulse Oximetry 96 07/04/18 16:00 Temperature 99 F Pulse Rate 70 Respiratory Rate 13 Blood Pressure 158/91 H Pulse Oximetry Intake & Output 07/03/18 07/04/18 07/04/18 18:59 06:59 18:59 Intake Total 400 / 400 320 / 320 Output Total 6080 / 6080 0 / 0 1999 Balance -5680 / -5680 320 / 320 -1999 Weight 55.5 kg Intake: Oral 400 / 400 320 / 320 Output: Urine 0 / 0 0 / 0 Stool 0 / 0 0 / 0 Emesis 75 / 75 Hemodialysis Amount 6000 / 6000 1999 Estimated Blood Loss 5 / 5 Other: # Voids 0 Date of Last Bowel Movement 07/02/18 07/02/18 07/02/18 # Bowel Movements 0 0 # Emeses 2 Narrative: GENERAL: Sleeping. Nausea improved. SKIN: Warm and dry. HEAD: Normocephalic. EYES: No scleral icterus. No injection or drainage. NECK: Supple, trachea midline. No JVD or lymphadenopathy. CARDIOVASCULAR: Regular rate and rhythm without murmurs, gallops, or rubs. RESPIRATORY: Breath sounds equal bilaterally. No accessory muscle use. GASTROINTESTINAL: Abdomen soft, non-tender, nondistended. MUSCULOSKELETAL: No cyanosis, or edema. BACK: Nontender without obvious deformity. No CVA tenderness. Results - Labs CBC & Chem 7: 06/30/18 09:23 07/04/18 05:12 Laboratory Results - last 24 hr 07/03/18 07/04/18 07/04/18 21:57 05:12 08:15 Sodium 130 L Potassium 5.5 H D Chloride 88 L Carbon Dioxide 25.6 Anion Gap 16 H BUN 92 H Creatinine 7.79 H Estimated GFR 10 L POC Glucose 308 H 63 L Random Glucose 83 Calcium 7.9 L 07/04/18 07/04/18 12:13 16:48 Sodium Potassium Chloride Carbon Dioxide Anion Gap BUN Creatinine Estimated GFR POC Glucose 113 H 82 Random Glucose Calcium Microbiology 07/01/18 15:25 Blood - Other Aerobic Blood Culture - Preliminary No growth in 3 days 07/01/18 15:25 Blood - Other Anaerobic Blood Culture - Preliminary No growth in 3 days 07/01/18 10:48 Blood - Other Aerobic Blood Culture - Final Micrococcus species 07/01/18 10:48 Blood - Other Anaerobic Blood Culture - Preliminary No growth in 3 days Assessment and Plan - Plan Mr. Cancino is a very pleasant 28 year old male with a history of end-stage renal disease on dialysis on Wednesday, Wednesday, Wednesday, IDDM, and hypertension who presented to the ED being sent by his ophthalmology Dr. for retinal detachment. Nausea/vomiting Possibly due to gastroparesis. Continue Reglan, will schedule Reglan SQ. Continue D5LR 100cc/hour Sopalamine patch Nutrition May need PEG or G-J tube. If mother agrees, we will arrange feeding tube. Retinal detachment: Currently followed by purchasing internship Dr. Yanes. S/p left eye laser vitrectomy on 06/28/[address] Yanes Keep facing down for 2 weeks after surgery as tolerated Continue postsurgical care per surgeon recommendations. started on moxifloxacin 0.5 % 1 ggt OS QID, Prednisolone acetate 1% 1 ggt OS QID, brimonidine 0.2% 1 ggt OS BID, Timolol 0.5 % 1ggt OS BID Hypertension, poorly controlled. HTN emergency with bilateral vision loss / retinal detachment Continue Nifedipine 60mg Qday. home meds hydralazine 100mg TID, minoxidil 10mg TID. continue Clonidine patch Diabetes mellitus, insulin dependent Has had hypoglycemia. Continue 12 units QHS. Continue sliding scale insulin. ESRD on dialysis Wednesday, Wednesday, Wednesday Hyperkalemia Consult nephrology Continue HD per nephro Full code. SCDs.
--- NOTE | 2018-07-04 20:49 | CT ---
EXAM DATE: 07/04/2018 7:36 PM EDT AGE/SEX: 28 years / Male INDICATIONS: Abdomen pain. CLINICAL DATA: This is the patient's initial encounter. Patient reports that signs and symptoms have been present for 1 day and indicates a pain score of 5/10. MEDICAL/SURGICAL HISTORY: Diabetes mellitus type II. Cholecystectomy. RADIATION DOSE: 5.62 CTDI (mGy) COMPARISON: None.. TECHNIQUE: Multiple contiguous axial images were obtained through the abdomen. Images were obtained using multiple row detector helical technique. Using automated exposure control and adjustment of the mA and/or kV according to patient size, radiation dose was kept as low as reasonably achievable to o btain optimal diagnostic quality images. DICOM format image data is available electronically for rev iew and comparison. FINDINGS: Lower Lungs: The visualized lower lungs are clear. The heart size is moderately enlarged and there is a moderate pericardial effusion. Liver: The liver has a homogeneous density without space-occupying lesion. There is no dilation of th e biliary tree. The patient is status post cholecystectomy. Spleen: Homogeneous density without enlargement. Pancreas: Not well visualized or evaluated. Grossly unremarkable. Kidneys: Normal in size and shape. No evidence of mass or hydronephrosis. Adrenal Glands: Unremarkable. Aorta: The aorta and proximal iliac vessels are grossly unremarkable without aneurysmal dilation. Bowel/Mesentery: There is limited oral opacification portions of the colon. Small bowel loops are po genny visualized and distinguish from the adjacent loops. There are several loops of nondilated air-co ntaining small bowel with several small air-fluid levels. Small amount of ascitic fluid in the abdome n and pelvis. There is mild apparent anasarca. Abdominal Wall: Intact. Retroperitoneum: No evidence of adenopathy in the retrocrural, para-aortic, or deep pelvic regions. Bladder: Contours are smooth. Reproductive Organs: No abnormal masses or calcifications seen. Inguinal: The inguinal region is unremarkable without evidence of adenopathy. Bony Structures: Unremarkable. CONCLUSION: 1. Cardiomegaly and moderate pericardial effusion. 2. Small amount of ascitic fluid and anasarca. 3. Nonspecific, nonobstructive bowel gas pattern with limited visualization and delineation of the b owel due to the lack of intravenous and oral contrast as well as the anasarca and ascites.. Electronically signed by: Danny Leyva MD 07/04/2018 8:48 PM EDT
[2018-07-04] MEDS: Insulin Detemir Inj 1,000 UNIT/10 ML Vial SQ SCH (21:54)
[2018-07-05] MEDS: Morphine Inj 4 MG/ML Vial IV.PUSH PRN ×2 (02:17→20:11)
[2018-07-05] MEDS: Dextrose 50% in Water 50 ML Vial IV.PUSH PRN (04:21)
[2018-07-05] MEDS: Labetalol HCl Inj 100 MG/20 ML Vial IV.PUSH PRN (06:26)
[2018-07-05] MEDS: Calcium Acetate 667 MG Capsule PO SCH ×3 (09:26→17:19)
[2018-07-05] MEDS: Minoxidil 10 MG Tablet PO SCH ×2 (09:27→20:20)
[2018-07-05] MEDS: Brimonidine 0.2% Opth Drops 5 ML Bottle LEFT EYE SCH ×2 (09:27→20:21)
[2018-07-05] MEDS: Sodium Chloride 0.9% 2 ML Flush BID IV.FLUSH SCH ×2 (09:27→20:32)
[2018-07-05] MEDS: Senna/Docusate Sodium 8.6/50 MG Tablet PO SCH ×2 (09:27→20:21)
[2018-07-05] MEDS: Metoprolol Tartrate 25 MG Tablet PO SCH ×4 (09:27→17:19)
[2018-07-05] MEDS: Timolol 0.5% Drops 5 ML Bottle LEFT EYE SCH ×2 (09:28→20:21)
[2018-07-05] MEDS: Moxifloxacin 0.5% Opth Drops 3 ML Bottle LEFT EYE SCH ×4 (09:28→20:21)
[2018-07-05] MEDS: prednisoLONE Acetate 1% Opth Susp 5 ML Bottle LEFT EYE SCH ×4 (09:28→20:21)
[2018-07-05] MEDS: Insulin NovoLOG Aspart Correctional Sugar Inj SQ SCH ×4 (09:58→20:41)
[2018-07-05] MEDS: OPTH LEFT EYE SCH ×2 (10:13→20:21)
[2018-07-05] MEDS: HOMATROPINE LEFT EYE SCH ×2 (10:13→20:21)
--- NOTE | 2018-07-05 12:19 | P.PNNP ---
Subjective Interval history: Feeling better today. Denies any shortness of breath, chest pain, nausea, or vomiting. Some abdominal tenderness when palpated. <Ariadna Fraire - Last Filed: 07/05/18 12:10> Physical Exam Vital signs: Vital Signs 07/04/18 16:00 07/04/18 20:00 07/05/18 00:00 Temperature 99 F 99.8 F H 100.0 F H Pulse Rate 70 70 72 Respiratory Rate 13 18 14 Blood Pressure 158/91 H 109/54 L 125/57 L Pulse Oximetry 95 95 07/05/18 04:00 07/05/18 08:00 Temperature 98.4 F 98.9 F Pulse Rate 74 68 Respiratory Rate 17 12 Blood Pressure 178/90 H 137/65 Pulse Oximetry 97 98 Intake & Output 07/04/18 07/05/18 07/05/18 18:59 06:59 18:59 Intake Total 240 / 240 240 / 240 Output Total 1999 0 / 0 Balance -1760 / -1760 240 / 240 Weight 59.9 kg Intake: Oral 240 / 240 240 / 240 Output: Urine 0 / 0 Stool 0 / 0 Hemodialysis Amount 1999 Other: # Voids 0 Date of Last Bowel Movement 07/02/18 07/02/18 07/02/18 Narrative: GENERAL: Alert and oriented. SKIN: Warm and dry. EYES: Left eye with patch. CARDIOVASCULAR: Regular rate and rhythm without murmurs, gallops, or rubs. Permcath IJ. RESPIRATORY: Breath sounds equal bilaterally. No accessory muscle use. GASTROINTESTINAL: Abdomen soft, non-tender, nondistended. MUSCULOSKELETAL: No cyanosis, or edema. BACK: Nontender without obvious deformity. No CVA tenderness. <Ariadna Fraire - Last Filed: 07/05/18 12:10> Vital signs: Vital Signs 07/07/18 21:47 07/08/18 00:00 07/08/18 01:30 Temperature 98.5 F 99.1 F Pulse Rate 68 71 Respiratory Rate 17 18 18 Blood Pressure 132/63 143/71 H Pulse Oximetry 94 L 96 07/08/18 04:00 07/08/18 15:00 Temperature 98.4 F 98.2 F Pulse Rate 73 100 H Respiratory Rate 17 20 Blood Pressure 159/84 H 179/85 H Pulse Oximetry 95 94 L Intake & Output 07/07/18 07/08/18 07/08/18 18:59 06:59 18:59 Intake Total 360 / 360 600 / 600 Output Total 3000 / 3000 Balance 360 / 360 600 / 600 -3000 / -3000 Weight 55.4 kg Intake: Oral 360 / 360 600 / 600 Output: Hemodialysis Amount 3000 / 3000 Other: # Voids 2 Date of Last Bowel Movement 07/02/18 07/02/18 <Tom Elise - Last Filed: 07/08/18 18:00> Assessment and Plan - Assessment (1) End-stage renal disease on hemodialysis Code(s): N18.6 - End stage renal disease; Z99.2 - Dependence on renal dialysis Status: Acute Plan: End stage renal disease on hemodialysis Wednesday, Wednesday, Wednesday Permacath IJ Plan Avoid gadolinium Avoid IVF administration Hemodialysis yesterday tolerated well with removal of 2 liters of fluid. Hemodialysis planned for tomorrow, labs in AM (2) Hypertension Code(s): I10 - Essential (primary) hypertension Status: Acute Plan: Blood pressure better controlled Cardene gtt off. Will monitor (3) Insulin dependent diabetes mellitus Code(s): E11.9 - Type 2 diabetes mellitus without complications; Z79.4 - snf (current) use of insulin Status: Acute Plan: Hypoglycemia this morning. Maintain blood sugars between 140 mg/dl to 180 mg/dl. (4) Nausea & vomiting Code(s): R11.2 - Nausea with vomiting, unspecified Status: Acute Plan: Has improved. CT of abdomen reviewed. <Ariadna Fraire - Last Filed: 07/05/18 12:10> - Assessment (1) End-stage renal disease on hemodialysis Code(s): N18.6 - End stage renal disease; Z99.2 - Dependence on renal dialysis Status: Acute Plan: Patient seen and examine, agree with above. HD will be in AM. BS is labile. (2) Hypertension Code(s): I10 - Essential (primary) hypertension Status: Acute (3) Insulin dependent diabetes mellitus Code(s): E11.9 - Type 2 diabetes mellitus without complications; Z79.4 - snf (current) use of insulin Status: Acute (4) Nausea & vomiting Code(s): R11.2 - Nausea with vomiting, unspecified Status: Acute (5) Tooth ache Code(s): K08.89 - Other specified disorders of teeth and supporting structures Status: Acute (6) Hyponatremia Code(s): E87.1 - Hypo-osmolality and hyponatremia Status: Acute <Tom Elise - Last Filed: 07/08/18 18:00>
--- NOTE | 2018-07-05 15:35 | P.PN ---
Subjective Interval history: Follow up for retinal detachment, ESRD, diabetes mellitus. Patient is currently doing well. No further nausea, vomiting. Eating better as well. Physical Exam Vital signs: Vital Signs 07/04/18 16:00 07/04/18 20:00 07/05/18 00:00 Temperature 99 F 99.8 F H 100.0 F H Pulse Rate 70 70 72 Respiratory Rate 13 18 14 Blood Pressure 158/91 H 109/54 L 125/57 L Pulse Oximetry 95 95 07/05/18 04:00 07/05/18 08:00 07/05/18 12:00 Temperature 98.4 F 98.9 F 98.9 F Pulse Rate 74 68 63 Respiratory Rate 17 12 21 Blood Pressure 178/90 H 137/65 128/69 Pulse Oximetry 97 98 99 Intake & Output 07/04/18 07/05/18 07/05/18 18:59 06:59 18:59 Intake Total 240 / 240 240 / 240 Output Total 1999 0 / 0 Balance -1760 / -1760 240 / 240 Weight 59.9 kg Intake: Oral 240 / 240 240 / 240 Output: Urine 0 / 0 Stool 0 / 0 Hemodialysis Amount 1999 Other: # Voids 0 Date of Last Bowel Movement 07/02/18 07/02/18 07/02/18 Narrative: GENERAL: Alert, NAD. SKIN: Warm and dry. HEAD: Normocephalic. EYES: No scleral icterus. No injection or drainage. NECK: Supple, trachea midline. No JVD or lymphadenopathy. CARDIOVASCULAR: Regular rate and rhythm without murmurs, gallops, or rubs. RESPIRATORY: Breath sounds equal bilaterally. No accessory muscle use. GASTROINTESTINAL: Abdomen soft, non-tender, nondistended. MUSCULOSKELETAL: No cyanosis, or edema. BACK: Nontender without obvious deformity. No CVA tenderness. Results - Labs CBC & Chem 7: 06/30/18 09:23 07/05/18 05:07 Laboratory Results - last 24 hr 07/04/18 07/04/18 07/05/18 16:48 21:47 04:03 POC Glucose 82 232 H 35 L* Random Glucose 07/05/18 07/05/18 07/05/18 04:12 04:25 05:07 POC Glucose 36 L* 208 H Random Glucose 130 H 07/05/18 07/05/18 09:30 12:01 POC Glucose 245 H 201 H Random Glucose Microbiology 07/01/18 15:25 Blood - Other Aerobic Blood Culture - Preliminary No growth in 4 days 07/01/18 15:25 Blood - Other Anaerobic Blood Culture - Preliminary No growth in 4 days 07/01/18 10:48 Blood - Other Aerobic Blood Culture - Final Micrococcus species 07/01/18 10:48 Blood - Other Anaerobic Blood Culture - Preliminary No growth in 4 days - Imaging Impressions Abdomen/Pelvis CT 07/04/18 00:00 CONCLUSION: 1. Cardiomegaly and moderate pericardial effusion. 2. Small amount of ascitic fluid and anasarca. 3. Nonspecific, nonobstructive bowel gas pattern with limited visualization and delineation of the bowel due to the lack of intravenous and oral contrast as well as the anasarca and ascites.. Assessment and Plan - Plan Mr. Cancino is a very pleasant 28 year old male with a history of end-stage renal disease on dialysis on Wednesday, Wednesday, Wednesday, IDDM, and hypertension who presented to the ED being sent by his ophthalmology Dr. for retinal detachment. Gastroparesis Continue Nutrition May need PEG or G-J tube. If mother agrees, we will arrange feeding tube. Retinal detachment: Currently followed by packing machine operator Dr. Yanes. S/p left eye laser vitrectomy on 06/28/[address] Yanes Keep facing down for 2 weeks after surgery as tolerated Continue postsurgical care per surgeon recommendations. started on moxifloxacin 0.5 % 1 ggt OS QID, Prednisolone acetate 1% 1 ggt OS QID, brimonidine 0.2% 1 ggt OS BID, Timolol 0.5 % 1ggt OS BID Hypertension, poorly controlled. HTN emergency with bilateral vision loss / retinal detachment Continue Nifedipine 60mg Qday. home meds hydralazine 100mg TID, minoxidil 10mg TID. continue Clonidine patch Diabetes mellitus, insulin dependent Has had hypoglycemia. Continue 12 units QHS. Continue sliding scale insulin. ESRD on dialysis Wednesday, Wednesday, Wednesday Hyperkalemia Consult nephrology Continue HD per nephro Full code. SCDs.
[2018-07-05] MEDS: Insulin Detemir Inj 1,000 UNIT/10 ML Vial SQ SCH (20:41)
[2018-07-05] MEDS ORDERED: Insulin Detemir Inj 1,000 UNIT/10 ML Vial SQ ONE (22:15)
[2018-07-06 06:33] LABS: Albumin 3.3 g/dL (3.4-5.0); Calcium 6.3 mg/dL (8.5-10.1); Carbon Dioxide 24.9 meq/L (21.0-32.0); Phosphorus 4.9 mg/dL (2.5-4.9); Potassium 4.5 meq/L (3.5-5.1)
[2018-07-06 06:35] LABS: Baso # (Auto) 0.1 th/mm3 (0.0-0.2); Baso % (Auto) 0.6 % (0.0-2.0); Eos % (Auto) 0.1 % (0.0-4.0); Hemoglobin 10.2 gm/dL (13.0-17.0); Lymph # (Auto) 0.8 th/mm3 (1.0-4.8); Lymph % (Auto) 4.5 % (9.0-44.0); Mean Corpuscular HGB Conc 31.1 % (32.0-36.0); Mean Corpuscular Hemoglobin 22.5 pg (27.0-34.0); Mean Corpuscular Volume 72.6 fL (80.0-100.0); Mean Platelet Volume 9.6 fL (7.0-11.0); Mono # (Auto) 1.9 th/mm3 (0.0-0.9); Mono % (Auto) 10.5 % (0.0-8.0); Neut # (Auto) 15.2 th/mm3 (1.8-7.7); Neut % (Auto) 84.3 % (16.0-70.0); Platelet Count 360 th/mm3 (150-450); Red Blood Count 4.54 mil/mm3 (4.50-5.90); Red Cell Distribution Width 27.4 % (11.6-17.2)
[2018-07-06 08:46] LABS: Dimorphic RBC Present; Ovalocytes 2+
[2018-07-06 08:48] LABS: Platelet Estimate Normal (Normal); Platelet Morphology Normal (Normal)
[2018-07-06] MEDS: Calcium Acetate 667 MG Capsule PO SCH ×3 (09:53→18:44)
[2018-07-06] MEDS: Metoprolol Tartrate 25 MG Tablet PO SCH ×3 (09:53→20:28)
[2018-07-06] MEDS: Minoxidil 10 MG Tablet PO SCH ×2 (09:53→20:46)
[2018-07-06] MEDS: Senna/Docusate Sodium 8.6/50 MG Tablet PO SCH ×2 (09:53→20:46)
[2018-07-06] MEDS: Insulin NovoLOG Aspart Correctional Sugar Inj SQ SCH ×4 (09:54→20:47)
[2018-07-06] MEDS: Morphine Inj 4 MG/ML Vial IV.PUSH PRN ×2 (10:06→20:46)
[2018-07-06] MEDS: prednisoLONE Acetate 1% Opth Susp 5 ML Bottle LEFT EYE SCH ×4 (10:33→20:48)
[2018-07-06] MEDS: Sodium Chloride 0.9% 2 ML Flush BID IV.FLUSH SCH ×2 (10:33→20:48)
[2018-07-06] MEDS: HOMATROPINE LEFT EYE SCH ×2 (10:33→20:47)
[2018-07-06] MEDS: Timolol 0.5% Drops 5 ML Bottle LEFT EYE SCH ×2 (10:33→20:48)
[2018-07-06] MEDS: OPTH LEFT EYE SCH ×2 (10:33→20:47)
[2018-07-06] MEDS: Brimonidine 0.2% Opth Drops 5 ML Bottle LEFT EYE SCH ×2 (10:33→20:47)
[2018-07-06] MEDS: Moxifloxacin 0.5% Opth Drops 3 ML Bottle LEFT EYE SCH ×4 (10:33→20:48)
--- NOTE | 2018-07-06 11:01 | P.PNNP ---
Subjective Interval history: Sitting up on side of bed eating breakfast. Denies any shortness of breath, chest pain, nausea, or vomiting. Reports some pain in jaw area from a tooth. <YeeAriadna - Last Filed: 07/06/18 10:53> Physical Exam Vital signs: Vital Signs 07/05/18 11:26 07/05/18 11:47 07/05/18 11:56 Temperature Pulse Rate 63 62 62 Respiratory Rate 11 L 10 L 11 L Blood Pressure 126/70 128/69 139/73 Pulse Oximetry 99 99 99 07/05/18 12:00 07/05/18 12:11 07/05/18 12:26 Temperature 98.9 F Pulse Rate 63 63 63 Respiratory Rate 12 11 L 11 L Blood Pressure 128/69 141/79 H 135/83 Pulse Oximetry 99 99 97 07/05/18 12:41 07/05/18 12:56 07/05/18 13:00 Temperature Pulse Rate 64 64 64 Respiratory Rate 10 L 11 L 11 L Blood Pressure 128/63 126/66 Pulse Oximetry 99 96 97 07/05/18 13:11 07/05/18 13:26 07/05/18 13:41 Temperature Pulse Rate 64 64 64 Respiratory Rate 13 13 15 Blood Pressure 125/66 119/62 124/65 Pulse Oximetry 99 97 98 07/05/18 13:56 07/05/18 14:00 07/05/18 14:11 Temperature Pulse Rate 67 67 68 Respiratory Rate 10 L 10 L 27 H Blood Pressure 128/77 123/69 Pulse Oximetry 97 97 98 07/05/18 14:26 07/05/18 14:41 07/05/18 14:56 Temperature Pulse Rate 68 65 66 Respiratory Rate 11 L 14 12 Blood Pressure 117/64 113/59 L 118/61 Pulse Oximetry 97 98 96 07/05/18 15:00 07/05/18 15:11 07/05/18 15:26 Temperature Pulse Rate 66 67 68 Respiratory Rate 12 18 29 H Blood Pressure 111/59 L 103/53 L Pulse Oximetry 96 98 98 07/05/18 15:41 07/05/18 15:56 07/05/18 15:58 Temperature Pulse Rate 68 70 70 Respiratory Rate 19 23 26 H Blood Pressure 130/59 L 129/73 Pulse Oximetry 99 97 97 07/05/18 16:00 07/05/18 16:38 07/05/18 16:40 Temperature 98.9 F Pulse Rate 70 70 Respiratory Rate 21 24 Blood Pressure 123/58 L 123/58 L Pulse Oximetry 96 97 07/05/18 20:00 07/05/18 20:51 07/05/18 21:00 Temperature 99.3 F Pulse Rate 64 Respiratory Rate 16 Blood Pressure Pulse Oximetry 100 97 07/05/18 21:05 07/05/18 22:00 07/06/18 00:00 Temperature 98.7 F Pulse Rate 65 64 65 Respiratory Rate 15 14 28 H Blood Pressure 121/58 L 119/56 L Pulse Oximetry 97 99 07/06/18 04:00 07/06/18 08:54 Temperature 98.7 F Pulse Rate 66 Respiratory Rate 14 Blood Pressure 148/87 H Pulse Oximetry 98 98 Intake & Output 07/05/18 07/06/18 07/06/18 18:59 06:59 18:59 Intake Total 450 / 450 875 / 875 Output Total 75 / 75 2155 / 2155 Balance 375 / 375 -1280 / -1280 Weight 56.7 kg Intake: Oral 450 / 450 450 / 450 Anesthesia Amount 425 / 425 Output: Urine 75 / 75 75 / 75 Stool 0 / 0 Emesis 75 / 75 Hemodialysis Amount 1999 / 1999 Estimated Blood Loss 5 / 5 Other: # Voids 0 Date of Last Bowel Movement 07/02/18 07/02/18 # Bowel Movements 0 # Emeses 2 Narrative: GENERAL: Alert, NAD. SKIN: Warm and dry. NECK: Supple, trachea midline. No JVD or lymphadenopathy. CARDIOVASCULAR: Regular rate and rhythm without murmurs, gallops, or rubs. Perma cath RESPIRATORY: Breath sounds equal bilaterally. No accessory muscle use. GASTROINTESTINAL: Abdomen soft, non-tender, nondistended. MUSCULOSKELETAL: No cyanosis, or edema. BACK: Nontender without obvious deformity. No CVA tenderness. <Arianda Fraire - Last Filed: 07/06/18 10:53> Vital signs: Vital Signs 07/10/18 20:00 07/10/18 20:53 07/11/18 00:00 Temperature 97.3 F L 98.3 F Pulse Rate 62 67 Respiratory Rate 17 18 16 Blood Pressure 117/80 118/57 L Pulse Oximetry 95 96 07/11/18 01:19 07/11/18 04:30 07/11/18 08:00 Temperature 98.5 F 98.3 F Pulse Rate 75 80 Respiratory Rate 20 16 18 Blood Pressure 144/72 H 165/83 H Pulse Oximetry 96 97 07/11/18 13:27 07/11/18 16:00 07/11/18 16:06 Temperature 97.8 F 99.3 F Pulse Rate 98 H 80 Respiratory Rate 20 18 18 Blood Pressure 175/90 H 143/67 H Pulse Oximetry 97 93 L Intake & Output 07/10/18 07/11/18 07/11/18 18:59 06:59 18:59 Intake Total 480 / 480 Output Total 3000 / 3000 Balance 480 / 480 -3000 / -3000 Weight 58.4 kg Intake: Oral 480 / 480 Output: Hemodialysis Amount 3000 / 3000 Other: # Voids 1 0 Date of Last Bowel Movement 07/07/18 07/07/18 <Tom Elise - Last Filed: 07/11/18 17:04> Assessment and Plan - Assessment (1) End-stage renal disease on hemodialysis Code(s): N18.6 - End stage renal disease; Z99.2 - Dependence on renal dialysis Status: Acute Plan: End stage renal disease on hemodialysis Wednesday, Wednesday, Wednesday Permacath IJ Plan Avoid gadolinium Avoid IVF administration Hemodialysis planned for today will remove fluid as tolerated. Hyponatremia, sodium level at 128, fluid restriction placed and sodium restriction removed from diet Hypocalcemia, IV replacement added Diet changed to renal/2200 ADA with fluid restriction. Outpatient hemodialysis has been at [facility] but due to no payer source this is no longer available (2) Hypertension Code(s): I10 - Essential (primary) hypertension Status: Acute Plan: Blood pressure better controlled Cardene gtt off. Will monitor (3) Insulin dependent diabetes mellitus Code(s): E11.9 - Type 2 diabetes mellitus without complications; Z79.4 - tank terminal gauger (current) use of insulin Status: Acute Plan: Maintain blood sugars between 140 mg/dl to 180 mg/dl. (4) Nausea & vomiting Code(s): R11.2 - Nausea with vomiting, unspecified Status: Acute Plan: Has improved. CT of abdomen reviewed. (5) Tooth ache Code(s): K08.89 - Other specified disorders of teeth and supporting structures Status: Acute Plan: Complaining of tooth ache with discomfort on palpation in jaw region Amoxicillin ordered. <Ariadna Fraire - Last Filed: 07/06/18 10:53> - Assessment (1) End-stage renal disease on hemodialysis Code(s): N18.6 - End stage renal disease; Z99.2 - Dependence on renal dialysis Status: Acute Plan: Patient seen an examined, agree with above. Doing better, BP improve. Still vomiting off and on. Calcium replaced. Out patient HD arrangement. (2) Hypertension Code(s): I10 - Essential (primary) hypertension Status: Acute (3) Insulin dependent diabetes mellitus Code(s): E11.9 - Type 2 diabetes mellitus without complications; Z79.4 - tank terminal gauger (current) use of insulin Status: Acute (4) Nausea & vomiting Code(s): R11.2 - Nausea with vomiting, unspecified Status: Acute (5) Hyponatremia Code(s): E87.1 - Hypo-osmolality and hyponatremia Status: Acute <Tom Elise - Last Filed: 07/11/18 17:04>
[2018-07-06] MEDS ORDERED: Calcium Gluconate Inj 1 GM in Sodium Chlor 0.9% Inj 100 ML IV.SIG ONE (13:00)
[2018-07-06] MEDS: Heparin 10,000 UNITS/10 ML Vial (for IV use) OTHER PRN (17:27)
--- NOTE | 2018-07-06 17:48 | P.PN ---
Subjective Interval history: Follow up for retinal detachment, ESRD, diabetes mellitus. Patient was seen in the dialysis unit today. Patient is tolerating dialysis well, denies any acute concerns. Physical Exam Vital signs: Vital Signs 07/05/18 20:00 07/05/18 20:51 07/05/18 21:00 Temperature 99.3 F Pulse Rate 64 Respiratory Rate 16 Blood Pressure Pulse Oximetry 100 97 07/05/18 21:05 07/05/18 22:00 07/06/18 00:00 Temperature 98.7 F Pulse Rate 65 64 65 Respiratory Rate 15 14 28 H Blood Pressure 121/58 L 119/56 L Pulse Oximetry 97 99 07/06/18 04:00 07/06/18 08:54 Temperature 98.7 F Pulse Rate 66 Respiratory Rate 14 Blood Pressure 148/87 H Pulse Oximetry 98 98 Intake & Output 07/05/18 07/06/18 07/06/18 18:59 06:59 18:59 Intake Total 450 / 450 875 / 875 Output Total 75 / 75 2155 / 2155 Balance 375 / 375 -1280 / -1280 Weight 56.7 kg Intake: Oral 450 / 450 450 / 450 Anesthesia Amount 425 / 425 Output: Urine 75 / 75 75 / 75 Stool 0 / 0 Emesis 75 / 75 Hemodialysis Amount 1999 / 1999 Estimated Blood Loss 5 / 5 Other: # Voids 0 Date of Last Bowel Movement 07/02/18 07/02/18 # Bowel Movements 0 # Emeses 2 Narrative: GENERAL: Alert, NAD. SKIN: Warm and dry. HEAD: Normocephalic. EYES: No scleral icterus. No injection or drainage. NECK: Supple, trachea midline. No JVD or lymphadenopathy. CARDIOVASCULAR: Regular rate and rhythm without murmurs, gallops, or rubs. RESPIRATORY: Breath sounds equal bilaterally. No accessory muscle use. GASTROINTESTINAL: Abdomen soft, non-tender, nondistended. MUSCULOSKELETAL: No cyanosis, or edema. BACK: Nontender without obvious deformity. No CVA tenderness. Results - Labs CBC & Chem 7: 07/06/18 05:45 07/06/18 05:45 Laboratory Results - last 24 hr 07/05/18 07/06/18 07/06/18 20:31 03:13 05:45 WBC 18.0 H RBC 4.54 Hgb 10.2 L Hct 33.0 L MCV 72.6 L MCH 22.5 L MCHC 31.1 L RDW 27.4 H Plt Count 360 D MPV 9.6 Prelim Diff (Auto) Slide review pending Neut % (Auto) 84.3 H Lymph % (Auto) 4.5 L [place] % (Auto) 10.5 H Eos % (Auto) 0.1 Baso % (Auto) 0.6 Neut # (Auto) 15.2 H Lymph # (Auto) 0.8 L [place] # (Auto) 1.9 H Eos # (Auto) 0.0 Baso # (Auto) 0.1 WBC Differential . Diff Scan Auto diff confirmed Differential Comment . Platelet Estimate Normal Platelet Morphology Normal Dimorphic RBCs Present H Ovalocytes 2+ H Keratocytes Occ H Sodium Potassium Chloride Carbon Dioxide Anion Gap BUN Creatinine Estimated GFR POC Glucose 224 H 166 H Random Glucose Calcium Phosphorus Albumin 07/06/18 07/06/18 07/06/18 05:45 09:32 12:17 WBC RBC Hgb Hct MCV MCH MCHC RDW Plt Count MPV Prelim Diff (Auto) Neut % (Auto) Lymph % (Auto) [place] % (Auto) Eos % (Auto) Baso % (Auto) Neut # (Auto) Lymph # (Auto) [place] # (Auto) Eos # (Auto) Baso # (Auto) WBC Differential Diff Scan Differential Comment Platelet Estimate Platelet Morphology Dimorphic RBCs Ovalocytes Keratocytes Sodium 128 L Potassium 4.5 Chloride 89 L Carbon Dioxide 24.9 Anion Gap 14 BUN 90 H Creatinine 8.42 H Estimated GFR 9 L POC Glucose 106 207 H Random Glucose 103 Calcium 6.3 L* Phosphorus 4.9 Albumin 3.3 L 07/06/18 17:25 WBC RBC Hgb Hct MCV MCH MCHC RDW Plt Count MPV Prelim Diff (Auto) Neut % (Auto) Lymph % (Auto) [place] % (Auto) Eos % (Auto) Baso % (Auto) Neut # (Auto) Lymph # (Auto) [place] # (Auto) Eos # (Auto) Baso # (Auto) WBC Differential Diff Scan Differential Comment Platelet Estimate Platelet Morphology Dimorphic RBCs Ovalocytes Keratocytes Sodium Potassium Chloride Carbon Dioxide Anion Gap BUN Creatinine Estimated GFR POC Glucose 106 Random Glucose Calcium Phosphorus Albumin Microbiology 07/01/18 15:25 Blood - Other Aerobic Blood Culture - Final No growth in 5 days 07/01/18 15:25 Blood - Other Anaerobic Blood Culture - Final No growth in 5 days 07/01/18 10:48 Blood - Other Aerobic Blood Culture - Final Micrococcus species 07/01/18 10:48 Blood - Other Anaerobic Blood Culture - Final No growth in 5 days Assessment and Plan - Plan Mr. Cancino is a very pleasant 28 year old male with a history of end-stage renal disease on dialysis on Wednesday, Wednesday, Wednesday, IDDM, and hypertension who presented to the ED being sent by his ophthalmology Dr. for retinal detachment. Gastroparesis Switch Reglan from IV to Liquid PO. 5mg ACHS. Nutrition May need PEG or G-J tube. However, he is eating better. Retinal detachment: Currently followed by shield runner Dr. Yanes. S/p left eye laser vitrectomy on 06/28/[address] Yanes Keep facing down for 2 weeks after surgery as tolerated Continue postsurgical care per surgeon recommendations. started on moxifloxacin 0.5 % 1 ggt OS QID, Prednisolone acetate 1% 1 ggt OS QID, brimonidine 0.2% 1 ggt OS BID, Timolol 0.5 % 1ggt OS BID Hypertension, poorly controlled. HTN emergency with bilateral vision loss / retinal detachment Continue Nifedipine 60mg Qday. home meds hydralazine 100mg TID, minoxidil 10mg TID. continue Clonidine patch Diabetes mellitus, insulin dependent Has had hypoglycemia. Continue 12 units QHS. Continue sliding scale insulin. ESRD on dialysis Wednesday, Wednesday, Wednesday Hyperkalemia Consult nephrology Continue HD per nephro Full code. SCDs. Discharge: It would be challenging to arrange outpatient dialysis. Will discuss with patient's mother regarding options of going back to [place].
[2018-07-06] MEDS: Scopalamine 1.5 MG Patch T-DERMAL SCH (18:44)
[2018-07-06] MEDS: Insulin Detemir Inj 1,000 UNIT/10 ML Vial SQ SCH ×2 (20:46)
[2018-07-07] MEDS: Metoprolol Tartrate 25 MG Tablet PO SCH ×4 (09:13→18:33)
[2018-07-07] MEDS: Minoxidil 10 MG Tablet PO SCH ×2 (09:13→20:53)
[2018-07-07] MEDS: Senna/Docusate Sodium 8.6/50 MG Tablet PO SCH ×2 (09:13→20:53)
[2018-07-07] MEDS: HOMATROPINE LEFT EYE SCH ×2 (09:21→20:48)
[2018-07-07] MEDS: Moxifloxacin 0.5% Opth Drops 3 ML Bottle LEFT EYE SCH ×4 (09:21→20:54)
[2018-07-07] MEDS: Timolol 0.5% Drops 5 ML Bottle LEFT EYE SCH ×2 (09:21→20:53)
[2018-07-07] MEDS: Brimonidine 0.2% Opth Drops 5 ML Bottle LEFT EYE SCH ×2 (09:21→20:48)
[2018-07-07] MEDS: prednisoLONE Acetate 1% Opth Susp 5 ML Bottle LEFT EYE SCH ×4 (09:21→20:53)
[2018-07-07] MEDS: Calcium Acetate 667 MG Capsule PO SCH ×3 (09:21→17:32)
[2018-07-07] MEDS: Sodium Chloride 0.9% 2 ML Flush BID IV.FLUSH SCH ×2 (09:21→20:49)
[2018-07-07] MEDS: OPTH LEFT EYE SCH ×2 (09:21→20:48)
[2018-07-07] MEDS: Metoclopramide Liq 10 MG/10 ML UDC PO SCH ×4 (09:22→20:49)
[2018-07-07] MEDS: Morphine Inj 4 MG/ML Vial IV.PUSH PRN ×4 (09:22→23:44)
--- NOTE | 2018-07-07 09:29 | P.PNNP ---
Subjective Interval history: No acute events overnight. Has follow up appt with ophthalmology today. Has some upper abdomen discomfort. No nausea or vomiting. <Ariadna Fraire - Last Filed: 07/07/18 09:24> Physical Exam Vital signs: Vital Signs 07/06/18 09:29 07/06/18 10:00 07/06/18 11:00 Temperature Pulse Rate 73 77 72 Respiratory Rate 0 L 25 H 38 H Blood Pressure 158/76 H Pulse Oximetry 98 99 100 07/06/18 11:53 07/06/18 12:00 07/06/18 13:00 Temperature Pulse Rate 73 73 71 Respiratory Rate 49 H 51 H 22 Blood Pressure 174/93 H Pulse Oximetry 100 100 99 07/06/18 13:29 07/06/18 14:00 07/06/18 20:00 Temperature 99.1 F Pulse Rate 70 65 70 Respiratory Rate 16 3 L 16 Blood Pressure 164/83 H 111/58 L Pulse Oximetry 98 99 07/06/18 22:39 07/07/18 00:00 07/07/18 04:00 Temperature 99.4 F 99.2 F Pulse Rate 72 70 Respiratory Rate 16 18 Blood Pressure 119/60 150/83 H Pulse Oximetry 96 07/07/18 07:48 Temperature Pulse Rate Respiratory Rate Blood Pressure Pulse Oximetry 100 Intake & Output 07/06/18 07/07/18 07/07/18 18:59 06:59 18:59 Intake Total 110 / 110 720 / 720 Output Total 3000 / 3000 0 / 0 Balance -2890 / -2890 720 / 720 Weight 57.7 kg Intake: IV 110 / 110 Calcium Gluconate Inj 1 GM In 110 / 110 NS Inj 100 ML @ 110 mls/hr IV. SIG ONCE ONE Rx#:[id number] Oral 720 / 720 Output: Urine 0 / 0 Hemodialysis Amount 3000 / 3000 Other: Date of Last Bowel Movement 07/02/18 07/02/18 Narrative: GENERAL: Alert, NAD. EYES: Left eye patch NECK: Supple, trachea midline. No JVD. CARDIOVASCULAR: Regular rate and rhythm without murmurs, gallops, or rubs. Permacath IJ RESPIRATORY: Breath sounds equal bilaterally. No accessory muscle use. GASTROINTESTINAL: Abdomen soft, non-tender, nondistended. MUSCULOSKELETAL: No cyanosis, or edema. BACK: Nontender without obvious deformity. No CVA tenderness. <Ariadna Fraire - Last Filed: 07/07/18 09:24> Vital signs: Vital Signs 07/10/18 20:00 07/10/18 20:53 07/11/18 00:00 Temperature 97.3 F L 98.3 F Pulse Rate 62 67 Respiratory Rate 17 18 16 Blood Pressure 117/80 118/57 L Pulse Oximetry 95 96 07/11/18 01:19 07/11/18 04:30 07/11/18 08:00 Temperature 98.5 F 98.3 F Pulse Rate 75 80 Respiratory Rate 20 16 18 Blood Pressure 144/72 H 165/83 H Pulse Oximetry 96 97 07/11/18 13:27 07/11/18 16:00 07/11/18 16:06 Temperature 97.8 F 99.3 F Pulse Rate 98 H 80 Respiratory Rate 20 18 18 Blood Pressure 175/90 H 143/67 H Pulse Oximetry 97 93 L Intake & Output 07/10/18 07/11/18 07/11/18 18:59 06:59 18:59 Intake Total 480 / 480 Output Total 3000 / 3000 Balance 480 / 480 -3000 / -3000 Weight 58.4 kg Intake: Oral 480 / 480 Output: Hemodialysis Amount 3000 / 3000 Other: # Voids 1 0 Date of Last Bowel Movement 07/07/18 07/07/18 <Tom Elise - Last Filed: 07/11/18 17:14> Assessment and Plan - Assessment (1) End-stage renal disease on hemodialysis Code(s): N18.6 - End stage renal disease; Z99.2 - Dependence on renal dialysis Status: Acute Plan: End stage renal disease on hemodialysis Wednesday, Wednesday, Wednesday Permacath IJ Plan Avoid gadolinium Avoid IVF administration Continue / renal diet and fluid restriction. Hemodialysis yesterday tolerated well with removal of 3 liters of fluid Hemodialysis planned for tomorrow Labs in AM (2) Hypertension Code(s): I10 - Essential (primary) hypertension Status: Acute Plan: Blood pressure better controlled Will monitor (3) Insulin dependent diabetes mellitus Code(s): E11.9 - Type 2 diabetes mellitus without complications; Z79.4 - c++ quant developer (current) use of insulin Status: Acute Plan: Maintain blood sugars between 140 mg/dl to 180 mg/dl. (4) Nausea & vomiting Code(s): R11.2 - Nausea with vomiting, unspecified Status: Acute Plan: Has improved. CT of abdomen reviewed. (5) Tooth ache Code(s): K08.89 - Other specified disorders of teeth and supporting structures Status: Acute Plan: On amoxicillin <Ariadna Fraire - Last Filed: 07/07/18 09:24> - Assessment (1) End-stage renal disease on hemodialysis Code(s): N18.6 - End stage renal disease; Z99.2 - Dependence on renal dialysis Status: Acute Plan: Patient seen an examined, agree with above. Continue HD, MWF. Out patient HD arrangement. (2) Hypertension Code(s): I10 - Essential (primary) hypertension Status: Acute (3) Insulin dependent diabetes mellitus Code(s): E11.9 - Type 2 diabetes mellitus without complications; Z79.4 - jail (current) use of insulin Status: Acute (4) Nausea & vomiting Code(s): R11.2 - Nausea with vomiting, unspecified Status: Acute (5) Hyponatremia Code(s): E87.1 - Hypo-osmolality and hyponatremia Status: Acute <Tom Elise - Last Filed: 07/11/18 17:14>
[2018-07-07] MEDS: Insulin NovoLOG Aspart Correctional Sugar Inj SQ SCH ×4 (09:55→20:49)
--- NOTE | 2018-07-07 17:30 | P.PN ---
Subjective Interval history: Follow up for retinal detachment, ESRD, diabetes mellitus. Patient is currently doing well. Denies any chest pain, shortness of breath, fever or chills. He is under the impression that he can continue dialysis at [facility] when his discharge. Per documentation by continuous pillowcase cutter, [facility] will not provide dialysis due to lack of payer source. Physical Exam Vital signs: Vital Signs 07/06/18 20:00 07/06/18 22:39 07/07/18 00:00 Temperature 99.1 F 99.4 F Pulse Rate 70 72 Respiratory Rate 16 16 Blood Pressure 111/58 L 119/60 Pulse Oximetry 96 07/07/18 04:00 07/07/18 07:48 07/07/18 08:00 Temperature 99.2 F 99.1 F Pulse Rate 70 76 Respiratory Rate 18 20 Blood Pressure 150/83 H 148/73 H Pulse Oximetry 100 100 07/07/18 12:00 Temperature 98.7 F Pulse Rate 79 Respiratory Rate 12 Blood Pressure 135/81 Pulse Oximetry 100 Intake & Output 07/06/18 07/07/18 07/07/18 18:59 06:59 18:59 Intake Total 110 / 110 720 / 720 Output Total 3000 / 3000 0 / 0 Balance -2890 / -2890 720 / 720 Weight 57.7 kg Intake: IV 110 / 110 Calcium Gluconate Inj 1 GM In 110 / 110 NS Inj 100 ML @ 110 mls/hr IV. SIG ONCE ONE Rx#:[id number] Oral 720 / 720 Output: Urine 0 / 0 Hemodialysis Amount 3000 / 3000 Other: Date of Last Bowel Movement 07/02/18 07/02/18 07/02/18 Narrative: GENERAL: Alert, NAD. EYES: Left eye patch NECK: Supple, trachea midline. No JVD. CARDIOVASCULAR: Regular rate and rhythm without murmurs, gallops, or rubs. Permacath IJ RESPIRATORY: Breath sounds equal bilaterally. No accessory muscle use. GASTROINTESTINAL: Abdomen soft, non-tender, nondistended. MUSCULOSKELETAL: No cyanosis, or edema. BACK: Nontender without obvious deformity. No CVA tenderness. Results - Labs CBC & Chem 7: 07/06/18 05:45 07/06/18 05:45 Laboratory Results - last 24 hr 07/06/18 07/06/18 07/07/18 17:25 20:37 09:34 POC Glucose 106 318 H 165 H 07/07/18 12:03 POC Glucose 194 H Assessment and Plan - Plan Mr. Cancino is a very pleasant 28 year old male with a history of end-stage renal disease on dialysis on Wednesday, Wednesday, Wednesday, IDDM, and hypertension who presented to the ED being sent by his ophthalmology DrKalani for retinal detachment. Gastroparesis Switched Reglan from IV to Liquid PO 5mg ACHS. Retinal detachment: Currently followed by lining ironer Dr. Yanes. S/p left eye laser vitrectomy on 06/28/[address] Yanes Keep facing down for 2 weeks after surgery as tolerated Continue postsurgical care per surgeon recommendations. started on moxifloxacin 0.5 % 1 ggt OS QID, Prednisolone acetate 1% 1 ggt OS QID, brimonidine 0.2% 1 ggt OS BID, Timolol 0.5 % 1ggt OS BID Hypertension, poorly controlled. HTN emergency with bilateral vision loss / retinal detachment Continue Nifedipine 60mg Qday. home meds hydralazine 100mg TID, minoxidil 10mg TID. continue Clonidine patch Diabetes mellitus, insulin dependent Has had hypoglycemia. Continue 12 units QHS. Continue sliding scale insulin. ESRD on dialysis Wednesday, Wednesday, Wednesday Hyperkalemia Consult nephrology Continue HD per nephro Full code. SCDs. Discharge plan: If nephrology clears for discharge, patient can likely be discharged. Patient needs an ophthalmology eval as well while he is in-patient. This will be a very challenging discharge since [facility].
[2018-07-07] MEDS: Insulin Detemir Inj 1,000 UNIT/10 ML Vial SQ SCH (20:48)
[2018-07-08 08:16] LABS: Baso % (Auto) 0.1 % (0.0-2.0); Eos # (Auto) 0.1 th/mm3 (0.0-0.4); Eos % (Auto) 0.4 % (0.0-4.0); Hematocrit 32.3 % (39.0-51.0); Hemoglobin 10.4 gm/dL (13.0-17.0); Lymph # (Auto) 0.8 th/mm3 (1.0-4.8); Lymph % (Auto) 4.8 % (9.0-44.0); Mean Corpuscular HGB Conc 32.1 % (32.0-36.0); Mean Corpuscular Hemoglobin 23.4 pg (27.0-34.0); Mean Corpuscular Volume 72.8 fL (80.0-100.0); Mean Platelet Volume 9.5 fL (7.0-11.0); Mono # (Auto) 2.3 th/mm3 (0.0-0.9); Mono % (Auto) 13.3 % (0.0-8.0); Neut # (Auto) 13.9 th/mm3 (1.8-7.7); Neut % (Auto) 81.4 % (16.0-70.0); Platelet Count 559 th/mm3 (150-450); Red Blood Count 4.44 mil/mm3 (4.50-5.90); Red Cell Distribution Width 25.5 % (11.6-17.2); White Blood Count 17.1 th/mm3 (4.0-11.0)
[2018-07-08 08:44] LABS: Albumin 3.4 g/dL (3.4-5.0); Calcium 9.1 mg/dL (8.5-10.1); Carbon Dioxide 25.8 meq/L (21.0-32.0); Phosphorus 4.1 mg/dL (2.5-4.9); Potassium 5.6 meq/L (3.5-5.1)
[2018-07-08 10:06] LABS: Ovalocytes 2+; Tear Drop Cells 1+
[2018-07-08 10:09] LABS: Acanthocytes 1+
--- NOTE | 2018-07-08 11:01 | P.PNNP ---
Subjective Interval history: Seen during hemodialysis tolerating well. Potassium level elevated at 5.6. Denies any shortness of breath, chest pain, nausea, or vomiting. Some abdominal tenderness noted. <Ariadna Fraire - Last Filed: 07/08/18 10:51> Physical Exam Vital signs: Vital Signs 07/07/18 12:00 07/07/18 16:00 07/07/18 21:47 Temperature 98.7 F 98.7 F 98.5 F Pulse Rate 79 63 68 Respiratory Rate 12 13 17 Blood Pressure 135/81 118/59 L 132/63 Pulse Oximetry 100 100 94 L 07/08/18 00:00 07/08/18 01:30 07/08/18 04:00 Temperature 99.1 F 98.4 F Pulse Rate 71 73 Respiratory Rate 18 18 17 Blood Pressure 143/71 H 159/84 H Pulse Oximetry 96 95 Intake & Output 07/07/18 07/08/18 07/08/18 18:59 06:59 18:59 Intake Total 360 / 360 600 / 600 Balance 360 / 360 600 / 600 Weight 55.4 kg Intake: Oral 360 / 360 600 / 600 Other: # Voids 2 Date of Last Bowel Movement 07/02/18 07/02/18 Narrative: GENERAL: Alert, NAD. EYES: Left eye patch off NECK: Supple, trachea midline. No JVD. CARDIOVASCULAR: Regular rate and rhythm without murmurs, gallops, or rubs. Permacath IJ RESPIRATORY: Breath sounds equal bilaterally. No accessory muscle use. GASTROINTESTINAL: Abdomen soft, non-tender, nondistended. MUSCULOSKELETAL: No cyanosis, or edema. BACK: Nontender without obvious deformity. No CVA tenderness. <Ariadna Fraire - Last Filed: 07/08/18 10:51> Vital signs: Vital Signs 07/11/18 20:00 07/12/18 00:00 07/12/18 04:51 Temperature 98.2 F 99.1 F 98.2 F Pulse Rate 61 66 66 Respiratory Rate 18 15 18 Blood Pressure 115/54 L 112/54 L 110/56 L Pulse Oximetry 97 94 L 97 07/12/18 08:00 07/12/18 12:00 07/12/18 14:12 Temperature 98.9 F 98.1 F Pulse Rate 77 69 Respiratory Rate 20 16 16 Blood Pressure 138/68 131/70 Pulse Oximetry 97 97 07/12/18 16:00 Temperature 98.4 F Pulse Rate 68 Respiratory Rate Blood Pressure 143/84 H Pulse Oximetry 100 Intake & Output 07/11/18 07/12/18 07/12/18 18:59 06:59 18:59 Intake Total 480 / 480 1960 / 1960 1200 / 1200 Output Total 3000 / 3000 500 / 500 Balance -2520 / -2520 1460 / 1460 1200 / 1200 Weight 58.4 kg Intake: Oral 480 / 480 1960 / 1960 1200 / 1200 Output: Urine 500 / 500 Hemodialysis Amount 3000 / 3000 Other: # Voids 0 2 2 Date of Last Bowel Movement 07/11/18 07/11/18 # Bowel Movements 0 0 <Tom Elise - Last Filed: 07/12/18 17:58> Assessment and Plan - Assessment (1) End-stage renal disease on hemodialysis Code(s): N18.6 - End stage renal disease; Z99.2 - Dependence on renal dialysis Status: Acute Plan: End stage renal disease on hemodialysis Wednesday, Wednesday, Wednesday Permacath IJ Plan Avoid gadolinium Avoid IVF administration Continue / renal diet/low potassium and fluid restriction. Hyperkalemia at 5.6, K bath adjusted with dialysis Seen during hemodialysis tolerating well will remove fluid as tolerated (2) Hypertension Code(s): I10 - Essential (primary) hypertension Status: Acute Plan: Blood pressure better controlled Will monitor (3) Insulin dependent diabetes mellitus Code(s): E11.9 - Type 2 diabetes mellitus without complications; Z79.4 - correction (current) use of insulin Status: Acute Plan: Maintain blood sugars between 140 mg/dl to 180 mg/dl. (4) Nausea & vomiting Code(s): R11.2 - Nausea with vomiting, unspecified Status: Acute Plan: Has improved. CT of abdomen reviewed. (5) Tooth ache Code(s): K08.89 - Other specified disorders of teeth and supporting structures Status: Acute Plan: On amoxicillin (6) Hyponatremia Code(s): E87.1 - Hypo-osmolality and hyponatremia Status: Acute Plan: Sodium level unchanged at 128 On fluid restriction, not confident that patient has been complaint TSH, Cortisol, urine sodium and urine osmolarity ordered. <Ariadna Fraire - Last Filed: 07/08/18 10:51> - Assessment (1) End-stage renal disease on hemodialysis Code(s): N18.6 - End stage renal disease; Z99.2 - Dependence on renal dialysis Status: Acute Plan: Patient seen and examined, agree with above. HD done today, continue HD, MWF. Follow the BS and BP. (2) Hypertension Code(s): I10 - Essential (primary) hypertension Status: Acute (3) Insulin dependent diabetes mellitus Code(s): E11.9 - Type 2 diabetes mellitus without complications; Z79.4 - director of residential services (current) use of insulin Status: Acute (4) Nausea & vomiting Code(s): R11.2 - Nausea with vomiting, unspecified Status: Acute (5) Hyponatremia Code(s): E87.1 - Hypo-osmolality and hyponatremia Status: Acute <Tom Elise - Last Filed: 07/12/18 17:58>
[2018-07-08] MEDS: Heparin 10,000 UNITS/10 ML Vial (for IV use) OTHER PRN (11:36)
[2018-07-08] MEDS: Insulin NovoLOG Aspart Correctional Sugar Inj SQ SCH ×4 (14:50→21:38)
[2018-07-08] MEDS: Metoclopramide Liq 10 MG/10 ML UDC PO SCH ×4 (14:51→21:27)
[2018-07-08] MEDS: Calcium Acetate 667 MG Capsule PO SCH ×3 (14:53→19:46)
[2018-07-08] MEDS: prednisoLONE Acetate 1% Opth Susp 5 ML Bottle LEFT EYE SCH ×4 (14:54→21:24)
[2018-07-08] MEDS: Metoprolol Tartrate 25 MG Tablet PO SCH ×3 (15:02→19:46)
[2018-07-08] MEDS: Minoxidil 10 MG Tablet PO SCH ×2 (15:03→21:22)
[2018-07-08] MEDS: Senna/Docusate Sodium 8.6/50 MG Tablet PO SCH ×2 (15:03→21:22)
[2018-07-08] MEDS: HOMATROPINE LEFT EYE SCH ×2 (15:52→21:24)
[2018-07-08] MEDS: OPTH LEFT EYE SCH ×2 (15:52→21:24)
[2018-07-08] MEDS: Sodium Chloride 0.9% 2 ML Flush BID IV.FLUSH SCH ×2 (15:52→21:25)
[2018-07-08] MEDS: Moxifloxacin 0.5% Opth Drops 3 ML Bottle LEFT EYE SCH ×4 (15:52→21:24)
[2018-07-08] MEDS: Timolol 0.5% Drops 5 ML Bottle LEFT EYE SCH ×2 (15:52→21:24)
[2018-07-08] MEDS: Brimonidine 0.2% Opth Drops 5 ML Bottle LEFT EYE SCH ×2 (15:52→21:24)
--- NOTE | 2018-07-08 17:55 | P.PN ---
Subjective Interval history: Follow up for retinal detachment, ESRD, diabetes mellitus. Patient is doing well. Resting in bed. No acute concerns. I have discussed with Chrome Tanning Drum Operator who will evaluate patient this evening and if needed again next week. Physical Exam Vital signs: Vital Signs 07/07/18 21:47 07/08/18 00:00 07/08/18 01:30 Temperature 98.5 F 99.1 F Pulse Rate 68 71 Respiratory Rate 17 18 18 Blood Pressure 132/63 143/71 H Pulse Oximetry 94 L 96 07/08/18 04:00 07/08/18 15:00 Temperature 98.4 F 98.2 F Pulse Rate 73 100 H Respiratory Rate 17 20 Blood Pressure 159/84 H 179/85 H Pulse Oximetry 95 94 L Intake & Output 07/07/18 07/08/18 07/08/18 18:59 06:59 18:59 Intake Total 360 / 360 600 / 600 Output Total 3000 / 3000 Balance 360 / 360 600 / 600 -3000 / -3000 Weight 55.4 kg Intake: Oral 360 / 360 600 / 600 Output: Hemodialysis Amount 3000 / 3000 Other: # Voids 2 Date of Last Bowel Movement 07/02/18 07/02/18 Narrative: GENERAL: Alert, NAD. EYES: Left eye patch off NECK: Supple, trachea midline. No JVD. CARDIOVASCULAR: Regular rate and rhythm without murmurs, gallops, or rubs. Permacath IJ RESPIRATORY: Breath sounds equal bilaterally. No accessory muscle use. GASTROINTESTINAL: Abdomen soft, non-tender, nondistended. MUSCULOSKELETAL: No cyanosis, or edema. BACK: Nontender without obvious deformity. No CVA tenderness. Results - Labs CBC & Chem 7: 07/08/18 07:06 07/08/18 07:06 Laboratory Results - last 24 hr 07/07/18 07/08/18 07/08/18 20:38 07:06 07:06 WBC 17.1 H RBC 4.44 L Hgb 10.4 L Hct 32.3 L MCV 72.8 L MCH 23.4 L MCHC 32.1 RDW 25.5 H Plt Count 559 H D MPV 9.5 Prelim Diff (Auto) Slide review pending Neut % (Auto) 81.4 H Lymph % (Auto) 4.8 L Scurry % (Auto) 13.3 H Eos % (Auto) 0.4 Baso % (Auto) 0.1 Neut # (Auto) 13.9 H Lymph # (Auto) 0.8 L Scurry # (Auto) 2.3 H Eos # (Auto) 0.1 Baso # (Auto) 0.0 WBC Differential . Diff Scan Auto diff confirmed Differential Comment . Platelet Estimate High H Platelet Morphology Enlarged H Tear Drop Cells 1+ H Ovalocytes 2+ H Acanthocytes (Spur) 1+ H Keratocytes 1+ H Sodium 128 L Potassium 5.6 H Chloride 88 L Carbon Dioxide 25.8 Anion Gap 14 BUN 75 H Creatinine 7.72 H Estimated GFR 10 L POC Glucose 332 H Random Glucose 50 L Calcium 9.1 Phosphorus 4.1 Albumin 3.4 07/08/18 07/08/18 07/08/18 09:20 11:38 17:07 WBC RBC Hgb Hct MCV MCH MCHC RDW Plt Count MPV Prelim Diff (Auto) Neut % (Auto) Lymph % (Auto) Scurry % (Auto) Eos % (Auto) Baso % (Auto) Neut # (Auto) Lymph # (Auto) Scurry # (Auto) Eos # (Auto) Baso # (Auto) WBC Differential Diff Scan Differential Comment Platelet Estimate Platelet Morphology Tear Drop Cells Ovalocytes Acanthocytes (Spur) Keratocytes Sodium Potassium Chloride Carbon Dioxide Anion Gap BUN Creatinine Estimated GFR POC Glucose 100 134 H 471 H* Random Glucose Calcium Phosphorus Albumin Assessment and Plan - Plan Mr. Cancino is a very pleasant 28 year old male with a history of end-stage renal disease on dialysis on Wednesday, Wednesday, Wednesday, IDDM, and hypertension who presented to the ED being sent by his ophthalmology Dr. for retinal detachment. Gastroparesis Continue Liquid PO 5mg ACHS. Retinal detachment: Currently followed by deicer element winder machine Dr. Yanes. S/p left eye laser vitrectomy on 06/28/[address] Yanes Keep facing down for 2 weeks after surgery as tolerated Continue postsurgical care per surgeon recommendations. started on moxifloxacin 0.5 % 1 ggt OS QID, Prednisolone acetate 1% 1 ggt OS QID, brimonidine 0.2% 1 ggt OS BID, Timolol 0.5 % 1ggt OS BID Hypertension, poorly controlled. HTN emergency with bilateral vision loss / retinal detachment Continue Nifedipine 60mg Qday. home meds hydralazine 100mg TID, minoxidil 10mg TID. continue Clonidine patch Diabetes mellitus, insulin dependent Has had hypoglycemia. Continue 12 units QHS. Continue sliding scale insulin. ESRD on dialysis Wednesday, Wednesday, Wednesday Hyperkalemia Consult nephrology Continue HD per nephro Full code. SCDs. Discharge: Difficult discharge since arranging outpatient dialysis is very difficult for this patient.
[2018-07-08] MEDS: Insulin Detemir Inj 1,000 UNIT/10 ML Vial SQ SCH (21:24)
[2018-07-08] MEDS: Morphine Inj 4 MG/ML Vial IV.PUSH PRN (23:08)
[2018-07-09] MEDS: Dextrose 50% in Water 50 ML Vial IV.PUSH PRN (01:58)
[2018-07-09] MEDS ORDERED: Dextrose 5%/NaCl 0.9% Inj 1,000 ML IV.CONT SCH (03:30)
--- NOTE | 2018-07-09 09:20 | P.PN ---
Subjective Interval history: Follow-up retinal detachment, diabetes mellitus and end-stage renal disease. Patient complains of being swollen in his abdomen. He was hypoglycemic started on D5 infusion overnight. Denies shortness of breath. Patient requesting to be dialyzed today. Physical Exam Vital signs: Vital Signs 07/08/18 15:00 07/08/18 17:15 07/08/18 20:00 Temperature 98.2 F 99.3 F Pulse Rate 100 H 75 Respiratory Rate 20 18 Blood Pressure 179/85 H 133/63 122/61 Pulse Oximetry 94 L 75 L 94 L 07/08/18 21:38 07/08/18 23:14 07/09/18 00:00 Temperature 99.1 F Pulse Rate 70 Respiratory Rate 18 18 18 Blood Pressure 125/71 Pulse Oximetry 93 L 07/09/18 04:00 07/09/18 05:07 07/09/18 08:00 Temperature 98.5 F 98.5 F Pulse Rate 69 72 Respiratory Rate 18 17 17 Blood Pressure 162/78 H 130/69 Pulse Oximetry 92 L 95 Intake & Output 07/08/18 07/09/18 07/09/18 18:59 06:59 18:59 Intake Total 360 / 360 Output Total 3000 / 3000 0 / 0 Balance -2640 / -2640 0 / 0 Weight 58.4 kg Intake: Oral 360 / 360 Output: Urine 0 / 0 Hemodialysis Amount 3000 / 3000 Other: Post Void Residual 0 # Voids 0 # Incontinent Voids 0 # Urine Diapers 0 Date of Last Bowel Movement 07/07/18 Narrative: GENERAL: Alert, in distress diaphoretic EYES: Left eye patch off NECK: Supple, trachea midline. No JVD. CARDIOVASCULAR: Regular rate and rhythm without murmurs, gallops, or rubs. Permacath IJ RESPIRATORY: Breath sounds equal bilaterally. No accessory muscle use. GASTROINTESTINAL: Abdomen soft, non-tender, slightly distended MUSCULOSKELETAL: No cyanosis, or edema. BACK: Nontender without obvious deformity. No CVA tenderness. Results - Labs CBC & Chem 7: 07/09/18 10:25 07/09/18 10:25 Laboratory Results - last 24 hr 07/08/18 07/08/18 07/08/18 07:06 09:20 11:38 WBC Differential . Diff Scan Auto diff confirmed Platelet Estimate High H Platelet Morphology Enlarged H Tear Drop Cells 1+ H Ovalocytes 2+ H Acanthocytes (Spur) 1+ H Keratocytes 1+ H POC Glucose 100 134 H 07/08/18 07/08/18 07/09/18 17:07 19:59 01:34 WBC Differential Diff Scan Platelet Estimate Platelet Morphology Tear Drop Cells Ovalocytes Acanthocytes (Spur) Keratocytes POC Glucose 471 H* 209 H 38 L* 07/09/18 07/09/18 07/09/18 01:45 01:51 02:02 WBC Differential Diff Scan Platelet Estimate Platelet Morphology Tear Drop Cells Ovalocytes Acanthocytes (Spur) Keratocytes POC Glucose 43 L* 36 L* 223 H 07/09/18 07/09/18 07/09/18 02:03 02:58 04:41 WBC Differential Diff Scan Platelet Estimate Platelet Morphology Tear Drop Cells Ovalocytes Acanthocytes (Spur) Keratocytes POC Glucose 195 H 88 82 07/09/18 07/09/18 06:14 08:42 WBC Differential Diff Scan Platelet Estimate Platelet Morphology Tear Drop Cells Ovalocytes Acanthocytes (Spur) Keratocytes POC Glucose 131 H 209 H - Imaging ITS Impressions Abdomen/Pelvis CT 07/04/18 00:00 CONCLUSION: 1. Cardiomegaly and moderate pericardial effusion. 2. Small amount of ascitic fluid and anasarca. 3. Nonspecific, nonobstructive bowel gas pattern with limited visualization and delineation of the bowel due to the lack of intravenous and oral contrast as well as the anasarca and ascites.. - Procedures S/p left eye laser vitrectomy on 06/28/[address] Yanes Assessment and Plan - Plan Mr. Cancino is a very pleasant 28 year old male with a history of end-stage renal disease on dialysis on Wednesday, Wednesday, Wednesday, IDDM, and hypertension who presented to the ED being sent by his ophthalmology Dr. for retinal detachment. Gastroparesis Continue Reglan PO 5mg ACHS. Retinal detachment: Currently followed by software systems analyst Dr. Yanes. S/p left eye laser vitrectomy on 06/28/[address] Yanes Keep facing down for 2 weeks after surgery as tolerated Continue postsurgical care per surgeon recommendations. started on moxifloxacin 0.5 % 1 ggt OS QID, Prednisolone acetate 1% 1 ggt OS QID, brimonidine 0.2% 1 ggt OS BID, Timolol 0.5 % 1ggt OS BID Hypertension, poorly controlled. HTN emergency with bilateral vision loss / retinal detachment. Improved Continue Nifedipine, hydralazine, minoxidil and Lopressor. Diabetes mellitus, insulin dependent Hypoglycemic again. Discontinue Levemir for now. Continue sliding scale insulin. Hypoglycemia protocol. Ck A1c ESRD on dialysis Wednesday, Wednesday, Wednesday Hyperkalemia Consult nephrology Continue HD per nephro Leukocytosis. Repeat CBC pending On amoxicillin. Blood culture x2, chest x-ray and urinalysis if persistent full code. SCDs. Discharge Planning: Arranging outpatient dialysis is very difficult for this patient. Is not a citizen
[2018-07-09] MEDS: Senna/Docusate Sodium 8.6/50 MG Tablet PO SCH ×2 (09:46→21:42)
[2018-07-09] MEDS: Calcium Acetate 667 MG Capsule PO SCH ×3 (09:46→17:07)
[2018-07-09] MEDS: Metoclopramide Liq 10 MG/10 ML UDC PO SCH ×4 (09:46→21:45)
[2018-07-09] MEDS: OPTH LEFT EYE SCH ×2 (09:47→21:44)
[2018-07-09] MEDS: Metoprolol Tartrate 25 MG Tablet PO SCH ×3 (09:47→17:07)
[2018-07-09] MEDS: prednisoLONE Acetate 1% Opth Susp 5 ML Bottle LEFT EYE SCH ×4 (09:47→21:44)
[2018-07-09] MEDS: Insulin NovoLOG Aspart Correctional Sugar Inj SQ SCH ×4 (09:47→21:41)
[2018-07-09] MEDS: Moxifloxacin 0.5% Opth Drops 3 ML Bottle LEFT EYE SCH ×4 (09:47→21:44)
[2018-07-09] MEDS: Minoxidil 10 MG Tablet PO SCH ×2 (09:47→21:42)
[2018-07-09] MEDS: Brimonidine 0.2% Opth Drops 5 ML Bottle LEFT EYE SCH ×2 (09:47→21:44)
[2018-07-09] MEDS: HOMATROPINE LEFT EYE SCH ×2 (09:47→21:44)
[2018-07-09] MEDS: Morphine Inj 4 MG/ML Vial IV.PUSH PRN ×3 (09:54→21:41)
[2018-07-09] MEDS: Timolol 0.5% Drops 5 ML Bottle LEFT EYE SCH ×2 (09:59→21:45)
[2018-07-09] MEDS: Sodium Chloride 0.9% 2 ML Flush BID IV.FLUSH SCH ×2 (09:59→21:42)
[2018-07-09 11:06] LABS: Baso % (Auto) 0.3 % (0.0-2.0); Eos # (Auto) 0.1 th/mm3 (0.0-0.4); Eos % (Auto) 0.3 % (0.0-4.0); Hematocrit 32.2 % (39.0-51.0); Lymph # (Auto) 0.7 th/mm3 (1.0-4.8); Lymph % (Auto) 3.6 % (9.0-44.0); Mean Corpuscular HGB Conc 31.1 % (32.0-36.0); Mean Corpuscular Hemoglobin 22.7 pg (27.0-34.0); Mean Platelet Volume 9.2 fL (7.0-11.0); Mono # (Auto) 2.4 th/mm3 (0.0-0.9); Mono % (Auto) 12.7 % (0.0-8.0); Neut % (Auto) 83.1 % (16.0-70.0); Platelet Count 575 th/mm3 (150-450); Red Blood Count 4.41 mil/mm3 (4.50-5.90); Red Cell Distribution Width 27.4 % (11.6-17.2); White Blood Count 19.2 th/mm3 (4.0-11.0)
[2018-07-09 11:39] LABS: Albumin 3.2 g/dL (3.4-5.0); Calcium 8.8 mg/dL (8.5-10.1); Carbon Dioxide 26.4 meq/L (21.0-32.0); Magnesium 2.4 mg/dL (1.5-2.5); Phosphorus 3.2 mg/dL (2.5-4.9); Potassium 4.9 meq/L (3.5-5.1); Uric Acid 3.7 mg/dl (2.6-7.2)
[2018-07-09 11:48] LABS: Acanthocytes 1+; Ovalocytes 2+; Tear Drop Cells 1+
[2018-07-09 11:49] LABS: Dimorphic RBC Present; Thyroid Stimulating Hormone 3.66 uIU/mL (0.358-3.740)
[2018-07-09 13:44] LABS: Hemoglobin A1c 5.8 % (4.3-6.0)
--- NOTE | 2018-07-09 15:02 | P.PNNP ---
Subjective Interval history: Patient given D5 last night 125cc/hour last night, with feelings of volume overload. HD ordered today - patient tolerated HD well Physical Exam Vital signs: Vital Signs 07/08/18 15:00 07/08/18 17:15 07/08/18 20:00 Temperature 98.2 F 99.3 F Pulse Rate 100 H 75 Respiratory Rate 20 18 Blood Pressure 179/85 H 133/63 122/61 Pulse Oximetry 94 L 75 L 94 L 07/08/18 21:38 07/08/18 23:14 07/09/18 00:00 Temperature 99.1 F Pulse Rate 70 Respiratory Rate 18 18 18 Blood Pressure 125/71 Pulse Oximetry 93 L 07/09/18 04:00 07/09/18 05:07 07/09/18 08:00 Temperature 98.5 F 98.5 F Pulse Rate 69 72 Respiratory Rate 18 17 17 Blood Pressure 162/78 H 130/69 Pulse Oximetry 92 L 95 07/09/18 12:00 Temperature 98.7 F Pulse Rate 90 Respiratory Rate 18 Blood Pressure 147/71 H Pulse Oximetry 92 L Intake & Output 07/08/18 07/09/18 07/09/18 18:59 06:59 18:59 Intake Total 360 / 360 Output Total 3000 / 3000 0 / 0 Balance -2640 / -2640 0 / 0 Weight 58.4 kg Intake: Oral 360 / 360 Output: Urine 0 / 0 Hemodialysis Amount 3000 / 3000 Other: Post Void Residual 0 # Voids 0 # Incontinent Voids 0 # Urine Diapers 0 Date of Last Bowel Movement 07/07/18 07/07/18 - Constitutional no acute distress - Routine HEENT Exam Head: Present: normocephalic Eye: Present: EOMI ENT: Present: mucous membranes moist - Routine Neck Exam Present: supple - Routine Respiratory Exam Present: CTA bilaterally - Routine Cardiovascular Exam Present: RRR - Routine Abdominal Exam Present: soft - Routine Extremities Exam Present: vascular access - Routine Skin Exam Present: intact - Routine Neurological Exam Present: alert, oriented X3 - Detailed Neurological Exam: Coma Scale Eye Opening: Spontaneous - Routine Psychiatric Exam Present: normal affect Assessment and Plan - Assessment (1) End-stage renal disease on hemodialysis Code(s): N18.6 - End stage renal disease; Z99.2 - Dependence on renal dialysis Status: Acute Plan: End stage renal disease on hemodialysis Wednesday, Wednesday, Wednesday Permacath IJ Given IVFs overnight at 125cc/hour for hypoglycemia - volume overload today, and HD ordered. Patient seen on HD now, tolerating well. Plan Avoid gadolinium Avoid IVF administration Continue / renal diet/low potassium and fluid restriction. Will plan for next HD Wednesday (2) Hypertension Code(s): I10 - Essential (primary) hypertension Status: Acute Plan: Blood pressure better controlled Will monitor (3) Insulin dependent diabetes mellitus Code(s): E11.9 - Type 2 diabetes mellitus without complications; Z79.4 - truck terminal manager (current) use of insulin Status: Acute Plan: Maintain blood sugars between 140 mg/dl to 180 mg/dl. Avoid large volume IVFs (4) Nausea & vomiting Code(s): R11.2 - Nausea with vomiting, unspecified Status: Acute Plan: Has improved. CT of abdomen reviewed. (5) Tooth ache Code(s): K08.89 - Other specified disorders of teeth and supporting structures Status: Acute Plan: On amoxicillin (6) Hyponatremia Code(s): E87.1 - Hypo-osmolality and hyponatremia Status: Acute Plan: Sodium level unchanged at 126 On fluid restriction, not confident that patient has been complaint TSH, Cortisol, urine sodium and urine osmolarity ordered.
[2018-07-09] MEDS: Scopalamine 1.5 MG Patch T-DERMAL SCH (17:18)
--- NOTE | 2018-07-09 18:46 | XR ---
EXAM DATE: 07/09/2018 12:00 AM EDT AGE/SEX: 28 years / Male INDICATIONS: Shortness of breath. CLINICAL DATA: This is the patient's initial encounter. Patient reports that signs and symptoms have been present for 1 day and indicates a pain score of 0/10. MEDICAL/SURGICAL HISTORY: . Hypertension. Renal disease, end stage. Renal failure. Diabetes. . Vas-cath. COMPARISON: Previous chest x-ray dated 03/04/2018. FINDINGS: Heart remains significantly enlarged. Minimal central pulmonary vascular congestion is noted. No foca l alveolar consolidation is noted. Right internal jugular tunneled dialysis catheter has its tips in the superior vena cava. CONCLUSION: 1. Significant cardiomegaly. 2. Mild pulmonary vascular congestion bilaterally. Electronically signed by: Kulwinder Jovel MD 07/09/2018 6:44 PM EDT
[2018-07-09 20:03] LABS: Bacteria,Urine Occasional /hpf; Bilirubin,Urine Negative (Negative); Clarity,Urine Cloudy (Clear); Color,Urine Amber (Yellw/Straw); Glucose,Urine (UA) 150 mg/dL (Negative); Hyaline Casts,Urine 4 /lpf (0-3); Leukocyte Esterase,Urine Negative (Negative); Mucus,Urine Few /lpf (Occasional); Nitrite,Urine Negative (Negative); Specific Gravity,Urine 1.025 (1.002-1.035); Squamous Epithelial Cell,Urine <1 /hpf (0-5)
[2018-07-09] MEDS ORDERED: Insulin Detemir Inj 1,000 UNIT/10 ML Vial SQ SCH (21:00)
--- NOTE | 2018-07-10 08:19 | P.PN ---
Subjective Interval history: Follow-up diabetes mellitus. Fingersticks erratic called by RN this morning glucose of over 500 he is asymptomatic Physical Exam Vital signs: Vital Signs 07/09/18 12:00 07/09/18 16:00 07/09/18 17:10 Temperature 98.7 F 98.6 F Pulse Rate 90 87 Respiratory Rate 18 18 18 Blood Pressure 147/71 H 148/74 H Pulse Oximetry 92 L 93 L 07/09/18 19:42 07/09/18 21:46 07/09/18 23:05 Temperature 99.4 F 98.1 F Pulse Rate 79 99 H Respiratory Rate 18 18 17 Blood Pressure 135/63 154/67 H Pulse Oximetry 95 95 07/10/18 01:39 07/10/18 05:12 Temperature Pulse Rate Respiratory Rate 18 18 Blood Pressure Pulse Oximetry Intake & Output 07/09/18 07/10/18 07/10/18 18:59 06:59 18:59 Intake Total 480 / 480 480 / 480 Output Total 3000 / 3000 Balance -2520 / -2520 480 / 480 Intake: Oral 480 / 480 480 / 480 Output: Hemodialysis Amount 3000 / 3000 Other: # Voids 0 Date of Last Bowel Movement 07/07/18 07/07/18 # Bowel Movements 0 Narrative: GENERAL: Alert, in distress diaphoretic EYES: Left eye patch off NECK: Supple, trachea midline. No JVD. CARDIOVASCULAR: Regular rate and rhythm without murmurs, gallops, or rubs. Permacath IJ RESPIRATORY: Breath sounds equal bilaterally. No accessory muscle use. GASTROINTESTINAL: Abdomen soft, non-tender, slightly distended MUSCULOSKELETAL: No cyanosis, or edema. BACK: Nontender without obvious deformity. No CVA tenderness. Results - Labs CBC & Chem 7: 07/10/18 07:38 07/10/18 07:38 Laboratory Results - last 24 hr 07/09/18 07/09/18 07/09/18 08:42 10:25 10:25 WBC 19.2 H RBC 4.41 L Hgb 10.0 L Hct 32.2 L MCV 73.0 L MCH 22.7 L MCHC 31.1 L RDW 27.4 H Plt Count 575 H MPV 9.2 Prelim Diff (Auto) Slide review pending Neut % (Auto) 83.1 H Lymph % (Auto) 3.6 L Polk % (Auto) 12.7 H Eos % (Auto) 0.3 Baso % (Auto) 0.3 Neut # (Auto) 16.0 H Lymph # (Auto) 0.7 L Polk # (Auto) 2.4 H Eos # (Auto) 0.1 Baso # (Auto) 0.0 WBC Differential . Diff Scan Auto diff confirmed Differential Comment . Platelet Estimate High H Platelet Morphology Enlarged H Dimorphic RBCs Present H Tear Drop Cells 1+ H Ovalocytes 2+ H Acanthocytes (Spur) 1+ H Sodium 126 L Potassium 4.9 Chloride 87 L Carbon Dioxide 26.4 Anion Gap 13 BUN 56 H Creatinine 5.85 H Estimated GFR 14 L POC Glucose 209 H Random Glucose 276 H D Hemoglobin A1c Uric Acid 3.7 Calcium 8.8 Phosphorus 3.2 Magnesium 2.4 Albumin 3.2 L TSH 3.660 Cortisol Urine Color Urine Clarity Urine pH Ur Specific Rolette Urine Protein Urine Glucose (UA) Urine Ketones Urine Occult Blood Urine Nitrate Urine Bilirubin Urine Urobilinogen Ur Leukocyte Esterase Urine RBC Urine WBC Ur Squamous Epith Cells Urine Bacteria Hyaline Casts Urine Mucus Ur Microscopic Review 07/09/18 07/09/18 07/09/18 10:25 10:25 11:08 WBC RBC Hgb Hct MCV MCH MCHC RDW Plt Count MPV Prelim Diff (Auto) Neut % (Auto) Lymph % (Auto) Polk % (Auto) Eos % (Auto) Baso % (Auto) Neut # (Auto) Lymph # (Auto) Polk # (Auto) Eos # (Auto) Baso # (Auto) WBC Differential Diff Scan Differential Comment Platelet Estimate Platelet Morphology Dimorphic RBCs Tear Drop Cells Ovalocytes Acanthocytes (Spur) Sodium Potassium Chloride Carbon Dioxide Anion Gap BUN Creatinine Estimated GFR POC Glucose 342 H Random Glucose Hemoglobin A1c 5.8 Uric Acid Calcium Phosphorus Magnesium Albumin TSH Cortisol 36.4 Urine Color Urine Clarity Urine pH Ur Specific Rolette Urine Protein Urine Glucose (UA) Urine Ketones Urine Occult Blood Urine Nitrate Urine Bilirubin Urine Urobilinogen Ur Leukocyte Esterase Urine RBC Urine WBC Ur Squamous Epith Cells Urine Bacteria Hyaline Casts Urine Mucus Ur Microscopic Review 07/09/18 07/09/18 07/09/18 16:40 19:00 19:51 WBC RBC Hgb Hct MCV MCH MCHC RDW Plt Count MPV Prelim Diff (Auto) Neut % (Auto) Lymph % (Auto) Polk % (Auto) Eos % (Auto) Baso % (Auto) Neut # (Auto) Lymph # (Auto) Polk # (Auto) Eos # (Auto) Baso # (Auto) WBC Differential Diff Scan Differential Comment Platelet Estimate Platelet Morphology Dimorphic RBCs Tear Drop Cells Ovalocytes Acanthocytes (Spur) Sodium Potassium Chloride Carbon Dioxide Anion Gap BUN Creatinine Estimated GFR POC Glucose 129 H 369 H Random Glucose Hemoglobin A1c Uric Acid Calcium Phosphorus Magnesium Albumin TSH Cortisol Urine Color Bharati Urine Clarity Cloudy H Urine pH 7.0 Ur Specific Rolette 1.025 Urine Protein 500 or greater Urine Glucose (UA) 150 H Urine Ketones Negative Urine Occult Blood Negative Urine Nitrate Negative Urine Bilirubin Negative Urine Urobilinogen Less than 2 Ur Leukocyte Esterase Negative Urine RBC 3 Urine WBC 18 H Ur Squamous Epith Cells <1 Urine Bacteria Occasional H Hyaline Casts 4 Urine Mucus Few H Ur Microscopic Review Not Reportable 07/10/18 07/10/18 07/10/18 02:35 07:56 07:58 WBC RBC Hgb Hct MCV MCH MCHC RDW Plt Count MPV Prelim Diff (Auto) Neut % (Auto) Lymph % (Auto) Polk % (Auto) Eos % (Auto) Baso % (Auto) Neut # (Auto) Lymph # (Auto) Polk # (Auto) Eos # (Auto) Baso # (Auto) WBC Differential Diff Scan Differential Comment Platelet Estimate Platelet Morphology Dimorphic RBCs Tear Drop Cells Ovalocytes Acanthocytes (Spur) Sodium Potassium Chloride Carbon Dioxide Anion Gap BUN Creatinine Estimated GFR POC Glucose 391 H 564 H* 539 H* Random Glucose Hemoglobin A1c Uric Acid Calcium Phosphorus Magnesium Albumin TSH Cortisol Urine Color Urine Clarity Urine pH Ur Specific Rolette Urine Protein Urine Glucose (UA) Urine Ketones Urine Occult Blood Urine Nitrate Urine Bilirubin Urine Urobilinogen Ur Leukocyte Esterase Urine RBC Urine WBC Ur Squamous Epith Cells Urine Bacteria Hyaline Casts Urine Mucus Ur Microscopic Review - Imaging Impressions Chest X-Ray 07/09/18 00:00 CONCLUSION: 1. Significant cardiomegaly. 2. Mild pulmonary vascular congestion bilaterally. - Procedures S/p left eye laser vitrectomy on 06/28/[address] Yanes Assessment and Plan - Plan Mr. Cancino is a very pleasant 28 year old male with a history of end-stage renal disease on dialysis on Wednesday, Wednesday, Wednesday, IDDM, and hypertension who presented to the ED being sent by his ophthalmology DrKalani for retinal detachment. Gastroparesis Continue Reglan PO 5mg ACHS. Retinal detachment: Currently followed by budget clerk Dr. Yanes. S/p left eye laser vitrectomy on 06/28/[address] Yanes Keep facing down for 2 weeks after surgery as tolerated Continue postsurgical care per surgeon recommendations. started on moxifloxacin 0.5 % 1 ggt OS QID, Prednisolone acetate 1% 1 ggt OS QID, brimonidine 0.2% 1 ggt OS BID, Timolol 0.5 % 1ggt OS BID Hypertension, poorly controlled. HTN emergency with bilateral vision loss / retinal detachment. Improved Continue Nifedipine, hydralazine, minoxidil and Lopressor. Diabetes mellitus, insulin dependent A1c 5.8 Erratic control fingerstick yesterday morning 38 and today over 500. Diabetic education. Restart Levemir at lower dose 8 units QD. Switch to 1800 ADA and high-dose sliding scale insulin. Hypoglycemia protocol. Doubt DKA anion gap 16 which has been in the range in the past with normal bicarb. Patient is also asymptomatic ESRD on dialysis Wednesday, Wednesday, Wednesday Hyperkalemia Fluid overload from D5 infusion status post emergent dialysis. Avoid IV hydration if possible Continue HD per nephro Leukocytosis. Improving On amoxicillin. Blood culture x2 Reviewed chest x-ray with congestion. Abnormal urinalysis with 18 WBC obtain urine culture full code. SCDs. Discharge Planning: Arranging outpatient dialysis is very difficult for this patient. He is not a citizen
[2018-07-10] MEDS ORDERED: Insulin Detemir Inj 1,000 UNIT/10 ML Vial SQ SCH (08:30)
[2018-07-10 08:56] LABS: Baso % (Auto) 0.2 % (0.0-2.0); Eos % (Auto) 0.2 % (0.0-4.0); Hematocrit 28.7 % (39.0-51.0); Hemoglobin 9.5 gm/dL (13.0-17.0); Lymph # (Auto) 0.9 th/mm3 (1.0-4.8); Mean Corpuscular HGB Conc 33.1 % (32.0-36.0); Mean Corpuscular Hemoglobin 24.4 pg (27.0-34.0); Mean Corpuscular Volume 73.9 fL (80.0-100.0); Mono # (Auto) 2.1 th/mm3 (0.0-0.9); Mono % (Auto) 13.6 % (0.0-8.0); Neut # (Auto) 12.7 th/mm3 (1.8-7.7); Platelet Count 534 th/mm3 (150-450); Red Blood Count 3.88 mil/mm3 (4.50-5.90); Red Cell Distribution Width 24.2 % (11.6-17.2); White Blood Count 15.8 th/mm3 (4.0-11.0)
[2018-07-10 09:28] LABS: Calcium 8.3 mg/dL (8.5-10.1); Carbon Dioxide 24.4 meq/L (21.0-32.0); Magnesium 2.4 mg/dL (1.5-2.5); Potassium 4.9 meq/L (3.5-5.1)
[2018-07-10 09:36] LABS: Acanthocytes 1+; Ovalocytes 2+
[2018-07-10 09:37] LABS: Dimorphic RBC Present
[2018-07-10 09:38] LABS: Platelet Morphology Normal (Normal)
[2018-07-10] MEDS: Metoclopramide Liq 10 MG/10 ML UDC PO SCH ×4 (09:49→20:44)
[2018-07-10] MEDS: Metoprolol Tartrate 25 MG Tablet PO SCH ×3 (09:49→18:16)
[2018-07-10] MEDS: Calcium Acetate 667 MG Capsule PO SCH ×3 (09:49→18:12)
[2018-07-10] MEDS: Senna/Docusate Sodium 8.6/50 MG Tablet PO SCH ×2 (09:49→20:38)
[2018-07-10] MEDS: Minoxidil 10 MG Tablet PO SCH ×2 (09:49→20:38)
[2018-07-10] MEDS: HOMATROPINE LEFT EYE SCH ×2 (09:51→20:42)
[2018-07-10] MEDS: OPTH LEFT EYE SCH ×2 (09:51→20:42)
[2018-07-10] MEDS: Moxifloxacin 0.5% Opth Drops 3 ML Bottle LEFT EYE SCH ×4 (09:51→20:43)
[2018-07-10] MEDS: Brimonidine 0.2% Opth Drops 5 ML Bottle LEFT EYE SCH ×2 (09:51→20:43)
[2018-07-10] MEDS: prednisoLONE Acetate 1% Opth Susp 5 ML Bottle LEFT EYE SCH ×4 (09:51→20:43)
[2018-07-10] MEDS: Insulin NovoLOG Aspart Correctional Sugar Inj SQ SCH ×5 (09:57→20:45)
[2018-07-10] MEDS: Timolol 0.5% Drops 5 ML Bottle LEFT EYE SCH ×2 (12:40→20:43)
[2018-07-10] MEDS: Sodium Chloride 0.9% 2 ML Flush BID IV.FLUSH SCH ×2 (12:56→20:38)
--- NOTE | 2018-07-10 13:39 | P.PNNP ---
Subjective Interval history: no acute complaints, hyperglycemia with glucose in 500s Physical Exam Vital signs: Vital Signs 07/09/18 16:00 07/09/18 17:10 07/09/18 19:42 Temperature 98.6 F 99.4 F Pulse Rate 87 79 Respiratory Rate 18 18 18 Blood Pressure 148/74 H 135/63 Pulse Oximetry 93 L 95 07/09/18 21:46 07/09/18 23:05 07/10/18 01:39 Temperature 98.1 F Pulse Rate 99 H Respiratory Rate 18 17 18 Blood Pressure 154/67 H Pulse Oximetry 95 07/10/18 05:12 07/10/18 08:00 07/10/18 12:00 Temperature 97.9 F 98.3 F Pulse Rate 83 76 Respiratory Rate 18 18 Blood Pressure 145/72 H 144/72 H Pulse Oximetry 95 93 L Intake & Output 07/09/18 07/10/18 07/10/18 18:59 06:59 18:59 Intake Total 480 / 480 480 / 480 Output Total 3000 / 3000 Balance -2520 / -2520 480 / 480 Intake: Oral 480 / 480 480 / 480 Output: Hemodialysis Amount 3000 / 3000 Other: # Voids 0 Date of Last Bowel Movement 07/07/18 07/07/18 07/07/18 # Bowel Movements 0 - Constitutional no acute distress - Routine HEENT Exam Head: Present: normocephalic Eye: Present: EOMI ENT: Present: mucous membranes moist - Routine Neck Exam Present: supple - Routine Respiratory Exam Present: CTA bilaterally - Routine Cardiovascular Exam Present: RRR - Routine Abdominal Exam Present: soft - Routine Extremities Exam Present: vascular access - Routine Skin Exam Present: intact - Routine Neurological Exam Present: alert - Detailed Neurological Exam: Coma Scale Eye Opening: Spontaneous - Routine Psychiatric Exam Present: normal affect Assessment and Plan - Assessment (1) End-stage renal disease on hemodialysis Code(s): N18.6 - End stage renal disease; Z99.2 - Dependence on renal dialysis Status: Acute Plan: End stage renal disease on hemodialysis Wednesday, Wednesday, Wednesday Permacath IJ Given IVFs Wednesday night night at 125cc/hour for hypoglycemia - volume overloaded yesterday Extra HD done yesterday with 3L UF Feeling better today. Hyperglycemia with associated decreased Na (pseudohyponatremia?) - continue to adjust insulin dosing. Glucose 500s today. Continue to monitor electrolytes. Plan Avoid gadolinium Avoid IVF administration Continue / renal diet/low potassium and fluid restriction. 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 Avoid large volume IVFs (4) Nausea & vomiting Code(s): R11.2 - Nausea with vomiting, unspecified Status: Acute Plan: Has improved. CT of abdomen reviewed. (5) Tooth ache Code(s): K08.89 - Other specified disorders of teeth and supporting structures Status: Acute Plan: On amoxicillin (6) Hyponatremia Code(s): E87.1 - Hypo-osmolality and hyponatremia Status: Acute Plan: Sodium level low, also with hyperglycemia On fluid restriction, not confident that patient has been complaint TSH, Cortisol, urine sodium and urine osmolarity ordered.
[2018-07-10] MEDS: Morphine Inj 4 MG/ML Vial IV.PUSH PRN ×2 (16:45→20:39)
[2018-07-10] MEDS ORDERED: Dextrose 50% in Water 50 ML Vial IV.PUSH PRN (20:47)
[2018-07-11] MEDS: Insulin NovoLOG Aspart Correctional Sugar Inj SQ SCH ×5 (04:02→21:08)
[2018-07-11] MEDS: Insulin Detemir Inj 1,000 UNIT/10 ML Vial SQ SCH (06:40)
[2018-07-11] MEDS: OPTH LEFT EYE SCH ×2 (08:36→21:12)
[2018-07-11] MEDS: Metoclopramide Liq 10 MG/10 ML UDC PO SCH ×4 (08:36→21:07)
[2018-07-11] MEDS: HOMATROPINE LEFT EYE SCH ×2 (08:36→21:12)
[2018-07-11] MEDS: Metoprolol Tartrate 25 MG Tablet PO SCH ×3 (08:36→17:27)
[2018-07-11] MEDS: Brimonidine 0.2% Opth Drops 5 ML Bottle LEFT EYE SCH ×2 (08:36→21:12)
[2018-07-11] MEDS: Minoxidil 10 MG Tablet PO SCH ×2 (08:36→21:07)
[2018-07-11] MEDS: Sodium Chloride 0.9% 2 ML Flush BID IV.FLUSH SCH ×2 (08:36→21:12)
[2018-07-11] MEDS: Timolol 0.5% Drops 5 ML Bottle LEFT EYE SCH ×2 (08:37→21:12)
[2018-07-11] MEDS: prednisoLONE Acetate 1% Opth Susp 5 ML Bottle LEFT EYE SCH ×4 (08:37→21:11)
[2018-07-11] MEDS: Moxifloxacin 0.5% Opth Drops 3 ML Bottle LEFT EYE SCH ×4 (08:37→21:12)
[2018-07-11] MEDS: Senna/Docusate Sodium 8.6/50 MG Tablet PO SCH ×2 (08:37→21:08)
[2018-07-11] MEDS: Calcium Acetate 667 MG Capsule PO SCH ×3 (08:37→17:27)
--- NOTE | 2018-07-11 09:39 | P.PNNP ---
Subjective Interval history: Seen during hemodialysis tolerating well. Reports nausea and vomiting over the weekend. Blood sugars have been labile. <Ariadna Fraire - Last Filed: 07/11/18 09:33> Physical Exam Vital signs: Vital Signs 07/10/18 12:00 07/10/18 16:00 07/10/18 20:00 Temperature 98.3 F 98.6 F 97.3 F L Pulse Rate 76 70 62 Respiratory Rate 18 16 17 Blood Pressure 144/72 H 110/56 L 117/80 Pulse Oximetry 93 L 96 95 07/10/18 20:53 07/11/18 00:00 07/11/18 01:19 Temperature 98.3 F Pulse Rate 67 Respiratory Rate 18 16 20 Blood Pressure 118/57 L Pulse Oximetry 96 07/11/18 04:30 07/11/18 08:00 Temperature 98.5 F 98.3 F Pulse Rate 75 80 Respiratory Rate 16 18 Blood Pressure 144/72 H 165/83 H Pulse Oximetry 96 97 Intake & Output 07/10/18 07/11/18 07/11/18 18:59 06:59 18:59 Intake Total 480 / 480 Balance 480 / 480 Weight 58.4 kg Intake: Oral 480 / 480 Other: # Voids 1 0 Date of Last Bowel Movement 07/07/18 07/07/18 Narrative: GENERAL: Alert, resting EYES: Left eye patch off NECK: Supple, trachea midline. No JVD. CARDIOVASCULAR: Regular rate and rhythm without murmurs, gallops, or rubs. Permacath IJ RESPIRATORY: Breath sounds equal bilaterally. No accessory muscle use. GASTROINTESTINAL: Abdomen soft, non-tender, slightly distended MUSCULOSKELETAL: No cyanosis, or edema. BACK: Nontender without obvious deformity. No CVA tenderness. <Ariadna Fraire - Last Filed: 07/11/18 09:33> Vital signs: Vital Signs 07/11/18 20:00 07/12/18 00:00 07/12/18 04:51 Temperature 98.2 F 99.1 F 98.2 F Pulse Rate 61 66 66 Respiratory Rate 18 15 18 Blood Pressure 115/54 L 112/54 L 110/56 L Pulse Oximetry 97 94 L 97 07/12/18 08:00 07/12/18 12:00 07/12/18 14:12 Temperature 98.9 F 98.1 F Pulse Rate 77 69 Respiratory Rate 20 16 16 Blood Pressure 138/68 131/70 Pulse Oximetry 97 97 07/12/18 16:00 Temperature 98.4 F Pulse Rate 68 Respiratory Rate Blood Pressure 143/84 H Pulse Oximetry 100 Intake & Output 07/11/18 07/12/18 07/12/18 18:59 06:59 18:59 Intake Total 480 / 480 1960 / 1960 1200 / 1200 Output Total 3000 / 3000 500 / 500 Balance -2520 / -2520 1460 / 1460 1200 / 1200 Weight 58.4 kg Intake: Oral 480 / 480 1960 / 1960 1200 / 1200 Output: Urine 500 / 500 Hemodialysis Amount 3000 / 3000 Other: # Voids 0 2 2 Date of Last Bowel Movement 07/11/18 07/11/18 # Bowel Movements 0 0 <Tom Elise - Last Filed: 07/12/18 18:17> Assessment and Plan - Assessment (1) End-stage renal disease on hemodialysis Code(s): N18.6 - End stage renal disease; Z99.2 - Dependence on renal dialysis Status: Acute Plan: End stage renal disease on hemodialysis Wednesday, Wednesday, Wednesday Permacath IJ Plan Avoid gadolinium Avoid IVF administration Continue / renal diet/low potassium and fluid restriction. Seen during hemodialysis today, will remove fluid as tolerated. 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 Maintain blood sugars between 140 mg/dl to 180 mg/dl. Avoid large volume IVFs (4) Nausea & vomiting Code(s): R11.2 - Nausea with vomiting, unspecified Status: Acute Plan: Has improved. CT of abdomen reviewed. (5) Hyponatremia Code(s): E87.1 - Hypo-osmolality and hyponatremia Status: Acute Plan: Sodium level low 123 at last check, also with hyperglycemia Hyperglycemia with associated decreased Na (pseudohyponatremia?) - continue to adjust insulin dosing. BS have improved <Ariadna Fraire - Last Filed: 07/11/18 09:33> - Assessment (1) End-stage renal disease on hemodialysis Code(s): N18.6 - End stage renal disease; Z99.2 - Dependence on renal dialysis Status: Acute Plan: Patient seen and examined, agree with above. HD to continue MWF. Out patient HD arrangement. 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
--- NOTE | 2018-07-11 10:43 | P.PN ---
Subjective Interval history: Follow-up diabetes mellitus with erratic fingersticks doubt dietary compliance. Patient was hypoglycemic again this morning after hemodialysis. At this time he has no complaints. Physical Exam Vital signs: Vital Signs 07/10/18 12:00 07/10/18 16:00 07/10/18 20:00 Temperature 98.3 F 98.6 F 97.3 F L Pulse Rate 76 70 62 Respiratory Rate 18 16 17 Blood Pressure 144/72 H 110/56 L 117/80 Pulse Oximetry 93 L 96 95 07/10/18 20:53 07/11/18 00:00 07/11/18 01:19 Temperature 98.3 F Pulse Rate 67 Respiratory Rate 18 16 20 Blood Pressure 118/57 L Pulse Oximetry 96 07/11/18 04:30 07/11/18 08:00 Temperature 98.5 F 98.3 F Pulse Rate 75 80 Respiratory Rate 16 18 Blood Pressure 144/72 H 165/83 H Pulse Oximetry 96 97 Intake & Output 07/10/18 07/11/18 07/11/18 18:59 06:59 18:59 Intake Total 480 / 480 Balance 480 / 480 Weight 58.4 kg Intake: Oral 480 / 480 Other: # Voids 1 0 Date of Last Bowel Movement 07/07/18 07/07/18 Narrative: GENERAL: Alert, resting CARDIOVASCULAR: Regular rate and rhythm without murmurs, gallops, or rubs. Permacath IJ RESPIRATORY: Breath sounds equal bilaterally. No accessory muscle use. GASTROINTESTINAL: Abdomen soft, non-tender, slightly distended MUSCULOSKELETAL: No cyanosis, or edema. BACK: Nontender without obvious deformity. No CVA tenderness. Results - Labs CBC & Chem 7: 07/10/18 07:38 07/10/18 07:38 Laboratory Results - last 24 hr 07/10/18 07/10/18 07/10/18 12:26 12:28 16:19 POC Glucose 528 H* 513 H* 90 Total Creatine Kinase 07/10/18 07/10/18 07/10/18 18:09 20:00 20:35 POC Glucose 70 71 Total Creatine Kinase 206 07/10/18 07/11/18 07/11/18 21:16 00:03 03:27 POC Glucose 184 H 322 H 439 H Total Creatine Kinase 07/11/18 07/11/18 06:23 07:41 POC Glucose 374 H 267 H Total Creatine Kinase - Imaging ITS Impressions Abdomen/Pelvis CT 07/04/18 00:00 CONCLUSION: 1. Cardiomegaly and moderate pericardial effusion. 2. Small amount of ascitic fluid and anasarca. 3. Nonspecific, nonobstructive bowel gas pattern with limited visualization and delineation of the bowel due to the lack of intravenous and oral contrast as well as the anasarca and ascites.. Chest X-Ray 07/09/18 00:00 CONCLUSION: 1. Significant cardiomegaly. 2. Mild pulmonary vascular congestion bilaterally. - Procedures S/p left eye laser vitrectomy on 06/28/[address] Yanes Assessment and Plan - Plan Mr. Cancino is a very pleasant 28 year old male with a history of end-stage renal disease on dialysis on Wednesday, Wednesday, Wednesday, IDDM, and hypertension who presented to the ED being sent by his ophthalmology Dr. for retinal detachment. Gastroparesis Continue Reglan PO 5mg ACHS. Retinal detachment: Currently followed by school age teacher Dr. Yanes. S/p left eye laser vitrectomy on 06/28/[address] Yanes Keep facing down for 2 weeks after surgery as tolerated Continue postsurgical care per surgeon recommendations. started on moxifloxacin 0.5 % 1 ggt OS QID, Prednisolone acetate 1% 1 ggt OS QID, brimonidine 0.2% 1 ggt OS BID, Timolol 0.5 % 1ggt OS BID Hypertension, poorly controlled. HTN emergency with bilateral vision loss / retinal detachment. Improved Continue Nifedipine, hydralazine, minoxidil and Lopressor. Diabetes mellitus, insulin dependent A1c 5.8 Erratic control secondary to noncompliance per. Diabetic education. Restart Levemir at lower dose 6 units QD. Switch to 1800 ADA and medium dose sliding scale insulin. Hypoglycemia protocol. ESRD on dialysis Wednesday, Wednesday, Wednesday Hyperkalemia Fluid overload from D5 infusion status post emergent dialysis. Avoid IV hydration if possible Continue HD per nephro Leukocytosis. Improving On amoxicillin per renal. Last dose in 2 days Repeat blood culture x2 negative to date Reviewed chest x-ray with congestion. Abnormal urinalysis with 18 WBC obtain urine culture full code. SCDs. Discharge Planning: Arranging outpatient dialysis is very difficult for this patient. He is not a citizen. Per correctional counselor/case manager, patient can be discharged when medically stable and return to ED for hemodialysis cleared by legal department. At this time he is not medically stable for discharge because of hypoglycemia and leukocytosis
--- NOTE | 2018-07-11 16:12 | ECG ---
Date Performed: 07/10/2018 Time Performed: 18:54:18 PTAGE: 28 years EKG: Sinus rhythm POSSIBLE LEFT ATRIAL ENLARGEMENT ST DEVIATION AND MODERATE T-WAVE ABNORMALITY, CONSIDER LATERAL ISCH EMIA ABNORMAL ECG PREVIOUS TRACING : 06/28/2018 09.50 Compared to previous tracing, there has been an improvement in the lateral ST segment depression and inferior ST elavation. The changes are nonspecific but chio cardial ischemia still needs to be considered and excluded clinically DOCTOR: Laisha Mathew Interpretating Date/Time 07/11/2018 16:10:26
[2018-07-11] MEDS: Morphine Inj 4 MG/ML Vial IV.PUSH PRN (17:28)
[2018-07-11 18:58] LABS: Hemoglobin 9.3 gm/dL (13.0-17.0); Mean Corpuscular HGB Conc 32.1 % (32.0-36.0); Mean Corpuscular Hemoglobin 22.9 pg (27.0-34.0); Mean Corpuscular Volume 71.3 fL (80.0-100.0); Mean Platelet Volume 8.7 fL (7.0-11.0); Platelet Count 557 th/mm3 (150-450); Red Blood Count 4.06 mil/mm3 (4.50-5.90); Red Cell Distribution Width 26.6 % (11.6-17.2)
[2018-07-11 19:39] LABS: Alanine Aminotransferase 50 U/L (12-78); Albumin 2.8 g/dL (3.4-5.0); Alkaline Phosphatase 194 U/L (45-117); Anion Gap 11 meq/L (5-15); Aspartate Aminotransferase 35 U/L (15-37); Blood Urea Nitrogen 34 mg/dL (7-18); Calcium 8.2 mg/dL (8.5-10.1); Carbon Dioxide 29.8 meq/L (21.0-32.0); Chloride 90 meq/L (98-107); Creatine Kinase 144 U/L (39-308); Glomerular Filtration Rate 20 mL/min (>89); Glucose,Random 283 mg/dL (74-106); Potassium 4.4 meq/L (3.5-5.1); Sodium 131 meq/L (136-145); Total Protein 7.4 g/dL (6.4-8.2)
[2018-07-12 09:05] LABS: Baso # (Auto) 0.1 th/mm3 (0.0-0.2); Baso % (Auto) 0.5 % (0.0-2.0); Eos % (Auto) 0.1 % (0.0-4.0); Hematocrit 28.8 % (39.0-51.0); Hemoglobin 9.3 gm/dL (13.0-17.0); Lymph # (Auto) 0.6 th/mm3 (1.0-4.8); Lymph % (Auto) 4.4 % (9.0-44.0); Mean Corpuscular HGB Conc 32.2 % (32.0-36.0); Mean Corpuscular Hemoglobin 24.2 pg (27.0-34.0); Mean Corpuscular Volume 75.2 fL (80.0-100.0); Mean Platelet Volume 8.2 fL (7.0-11.0); Mono # (Auto) 1.3 th/mm3 (0.0-0.9); Neut # (Auto) 12.3 th/mm3 (1.8-7.7); Platelet Count 488 th/mm3 (150-450); Red Blood Count 3.83 mil/mm3 (4.50-5.90); Red Cell Distribution Width 24.8 % (11.6-17.2); White Blood Count 14.3 th/mm3 (4.0-11.0)
[2018-07-12] MEDS: Senna/Docusate Sodium 8.6/50 MG Tablet PO SCH ×2 (09:17→21:56)
[2018-07-12] MEDS: Metoprolol Tartrate 25 MG Tablet PO SCH ×3 (09:18→17:10)
[2018-07-12] MEDS: Calcium Acetate 667 MG Capsule PO SCH ×3 (09:18→17:53)
[2018-07-12] MEDS: Minoxidil 10 MG Tablet PO SCH ×2 (09:18→21:54)
[2018-07-12] MEDS: Insulin Detemir Inj 1,000 UNIT/10 ML Vial SQ SCH (09:18)
[2018-07-12] MEDS: HOMATROPINE LEFT EYE SCH ×2 (09:20→21:56)
[2018-07-12] MEDS: Sodium Chloride 0.9% 2 ML Flush BID IV.FLUSH SCH ×2 (09:20→21:57)
[2018-07-12] MEDS: OPTH LEFT EYE SCH ×2 (09:20→21:56)
[2018-07-12] MEDS: Moxifloxacin 0.5% Opth Drops 3 ML Bottle LEFT EYE SCH ×4 (09:20→21:55)
[2018-07-12] MEDS: Timolol 0.5% Drops 5 ML Bottle LEFT EYE SCH ×2 (09:20→21:56)
[2018-07-12] MEDS: Brimonidine 0.2% Opth Drops 5 ML Bottle LEFT EYE SCH ×2 (09:20→21:56)
[2018-07-12] MEDS: prednisoLONE Acetate 1% Opth Susp 5 ML Bottle LEFT EYE SCH ×4 (09:20→21:56)
[2018-07-12] MEDS: Morphine Inj 4 MG/ML Vial IV.PUSH PRN ×3 (09:24→21:46)
[2018-07-12] MEDS: Metoclopramide Liq 10 MG/10 ML UDC PO SCH ×4 (09:25→21:54)
[2018-07-12] MEDS: Insulin NovoLOG Aspart Correctional Sugar Inj SQ SCH ×4 (09:25→21:47)
[2018-07-12 09:48] LABS: Alanine Aminotransferase 76 U/L (12-78); Albumin 2.7 g/dL (3.4-5.0); Alkaline Phosphatase 250 U/L (45-117); Anion Gap 12 meq/L (5-15); Aspartate Aminotransferase 112 U/L (15-37); Blood Urea Nitrogen 51 mg/dL (7-18); Carbon Dioxide 24.7 meq/L (21.0-32.0); Chloride 87 meq/L (98-107); Creatine Kinase 136 U/L (39-308); Glomerular Filtration Rate 14 mL/min (>89); Ovalocytes 3+; Tear Drop Cells 2+
[2018-07-12 09:52] LABS: Glucose,Random 594 mg/dL (74-106); Sodium 124 meq/L (136-145)
--- NOTE | 2018-07-12 10:43 | P.PN ---
Subjective Interval history: Patient with ESRD on HD, Diabetes Mellitus II with high blood sugar today will adjust management. had Hypoglycemia yesterday after HD. 07/12: Seen in his bedroom, stable no nausea, vomit or diarrhea, had Hyperglycemia over 600 giving sliding scale that was increased to medium dose. has Hypoglycemia protocol. Physical Exam Vital signs: Vital Signs 07/11/18 13:27 07/11/18 16:00 07/11/18 16:06 Temperature 97.8 F 99.3 F Pulse Rate 98 H 80 Respiratory Rate 20 18 18 Blood Pressure 175/90 H 143/67 H Pulse Oximetry 97 93 L 07/11/18 17:30 07/11/18 20:00 07/12/18 00:00 Temperature 98.2 F 99.1 F Pulse Rate 61 66 Respiratory Rate 18 18 15 Blood Pressure 115/54 L 112/54 L Pulse Oximetry 97 94 L 07/12/18 04:51 07/12/18 08:00 Temperature 98.2 F 98.9 F Pulse Rate 66 77 Respiratory Rate 18 20 Blood Pressure 110/56 L 138/68 Pulse Oximetry 97 97 Intake & Output 07/11/18 07/12/18 07/12/18 18:59 06:59 18:59 Intake Total 480 / 480 1960 / 1960 Output Total 3000 / 3000 500 / 500 Balance -2520 / -2520 1460 / 1460 Weight 58.4 kg Intake: Oral 480 / 480 1960 / 1960 Output: Urine 500 / 500 Hemodialysis Amount 3000 / 3000 Other: # Voids 0 2 Date of Last Bowel Movement 07/11/18 # Bowel Movements 0 Narrative: GENERAL: Alert, resting CARDIOVASCULAR: Regular rate and rhythm without murmurs, gallops, or rubs. Permacath IJ RESPIRATORY: Breath sounds equal bilaterally. No accessory muscle use. GASTROINTESTINAL: Abdomen soft, non-tender, slightly distended MUSCULOSKELETAL: No cyanosis, or edema. BACK: Nontender without obvious deformity. No CVA tenderness. Results - Labs CBC & Chem 7: 07/12/18 08:33 07/12/18 10:50 Laboratory Results - last 24 hr 07/11/18 07/11/18 07/11/18 11:08 12:31 12:46 WBC RBC Hgb Hct MCV MCH MCHC RDW Plt Count MPV Prelim Diff (Auto) Neut % (Auto) Lymph % (Auto) [place] % (Auto) Eos % (Auto) Baso % (Auto) Neut # (Auto) Lymph # (Auto) [place] # (Auto) Eos # (Auto) Baso # (Auto) WBC Differential Diff Scan Differential Comment Platelet Morphology Tear Drop Cells Ovalocytes Sodium Potassium Chloride Carbon Dioxide Anion Gap BUN Creatinine Estimated GFR POC Glucose 90 56 L 51 L Random Glucose Calcium Phosphorus Total Bilirubin AST ALT Alkaline Phosphatase Total Creatine Kinase Total Protein Albumin 07/11/18 07/11/18 07/11/18 13:07 13:38 16:55 WBC 14.0 H RBC 4.06 L Hgb 9.3 L Hct 29.0 L MCV 71.3 L MCH 22.9 L MCHC 32.1 RDW 26.6 H Plt Count 557 H MPV 8.7 Prelim Diff (Auto) Neut % (Auto) Lymph % (Auto) [place] % (Auto) Eos % (Auto) Baso % (Auto) Neut # (Auto) Lymph # (Auto) [place] # (Auto) Eos # (Auto) Baso # (Auto) WBC Differential Diff Scan Differential Comment Platelet Morphology Tear Drop Cells Ovalocytes Sodium Potassium Chloride Carbon Dioxide Anion Gap BUN Creatinine Estimated GFR POC Glucose 61 L 102 Random Glucose Calcium Phosphorus Total Bilirubin AST ALT Alkaline Phosphatase Total Creatine Kinase Total Protein Albumin 07/11/18 07/11/18 07/11/18 16:55 17:07 20:09 WBC RBC Hgb Hct MCV MCH MCHC RDW Plt Count MPV Prelim Diff (Auto) Neut % (Auto) Lymph % (Auto) [place] % (Auto) Eos % (Auto) Baso % (Auto) Neut # (Auto) Lymph # (Auto) [place] # (Auto) Eos # (Auto) Baso # (Auto) WBC Differential Diff Scan Differential Comment Platelet Morphology Tear Drop Cells Ovalocytes Sodium 131 L Potassium 4.4 Chloride 90 L Carbon Dioxide 29.8 Anion Gap 11 BUN 34 H Creatinine 4.28 H Estimated GFR 20 L POC Glucose 307 H 225 H Random Glucose 283 H D Calcium 8.2 L Phosphorus Total Bilirubin 0.7 AST 35 ALT 50 Alkaline Phosphatase 194 H Total Creatine Kinase 144 Total Protein 7.4 Albumin 2.8 L 07/12/18 07/12/18 07/12/18 08:33 08:33 09:08 WBC 14.3 H RBC 3.83 L Hgb 9.3 L Hct 28.8 L MCV 75.2 L D MCH 24.2 L MCHC 32.2 RDW 24.8 H Plt Count 488 H MPV 8.2 Prelim Diff (Auto) Slide review pending Neut % (Auto) 86.0 H Lymph % (Auto) 4.4 L [place] % (Auto) 9.0 H Eos % (Auto) 0.1 Baso % (Auto) 0.5 Neut # (Auto) 12.3 H Lymph # (Auto) 0.6 L [place] # (Auto) 1.3 H Eos # (Auto) 0.0 Baso # (Auto) 0.1 WBC Differential . Diff Scan Auto diff confirmed Differential Comment . Platelet Morphology Enlarged H Tear Drop Cells 2+ H Ovalocytes 3+ H Sodium 124 L* Potassium 5.0 Chloride 87 L Carbon Dioxide 24.7 Anion Gap 12 BUN 51 H Creatinine 5.94 H Estimated GFR 14 L POC Glucose Greater than 600 H* Random Glucose 594 H* D Calcium 8.0 L Phosphorus 3.0 Total Bilirubin 0.7 AST 112 H ALT 76 Alkaline Phosphatase 250 H Total Creatine Kinase 136 Total Protein 7.0 Albumin 2.7 L 07/12/18 07/12/18 09:33 10:30 WBC RBC Hgb Hct MCV MCH MCHC RDW Plt Count MPV Prelim Diff (Auto) Neut % (Auto) Lymph % (Auto) [place] % (Auto) Eos % (Auto) Baso % (Auto) Neut # (Auto) Lymph # (Auto) [place] # (Auto) Eos # (Auto) Baso # (Auto) WBC Differential Diff Scan Differential Comment Platelet Morphology Tear Drop Cells Ovalocytes Sodium Potassium Chloride Carbon Dioxide Anion Gap BUN Creatinine Estimated GFR POC Glucose Greater than 600 H* Greater than 600 H* Random Glucose Calcium Phosphorus Total Bilirubin AST ALT Alkaline Phosphatase Total Creatine Kinase Total Protein Albumin Microbiology 07/10/18 07:43 Blood - Peripheral Aerobic Blood Culture - Preliminary No growth in 1 day 07/10/18 07:43 Blood - Peripheral Anaerobic Blood Culture - Preliminary No growth in 1 day 07/10/18 07:38 Blood - Peripheral Aerobic Blood Culture - Preliminary No growth in 1 day 07/10/18 07:38 Blood - Peripheral Anaerobic Blood Culture - Preliminary No growth in 1 day - Imaging Abdomen/Pelvis CT 07/04/18 00:00 CONCLUSION: 1. Cardiomegaly and moderate pericardial effusion. 2. Small amount of ascitic fluid and anasarca. 3. Nonspecific, nonobstructive bowel gas pattern with limited visualization and delineation of the bowel due to the lack of intravenous and oral contrast as well as the anasarca and ascites.. Chest X-Ray 07/09/18 00:00 CONCLUSION: 1. Significant cardiomegaly. 2. Mild pulmonary vascular congestion bilaterally. - Procedures S/p left eye laser vitrectomy on 06/28/[address] Yanes Assessment and Plan - Plan Mr. Cancino is a very pleasant 28 year old male with a history of end-stage renal disease on dialysis on Wednesday, Wednesday, Wednesday, IDDM, and hypertension who presented to the ED being sent by his ophthalmology Dr. for retinal detachment. Gastroparesis Continue Reglan PO 5mg ACHS. Retinal detachment: Currently followed by supervisor [employer] Dr. Yanes. S/p left eye laser vitrectomy on 06/28/[address] Yanes Keep facing down for 2 weeks after surgery as tolerated Continue postsurgical care per surgeon recommendations. started on moxifloxacin 0.5 % 1 ggt OS QID, Prednisolone acetate 1% 1 ggt OS QID, brimonidine 0.2% 1 ggt OS BID, Timolol 0.5 % 1ggt OS BID Hypertension, poorly controlled. HTN emergency with bilateral vision loss / retinal detachment Continue Nifedipine, hydralazine, minoxidil and Lopressor. better control. Diabetes mellitus, insulin dependent A1c 5.8 Erratic control secondary to noncompliance per. Diabetic education. Restart Levemir at lower dose 6 units QD. Switch to 1800 ADA and medium dose sliding scale insulin. Hypoglycemia protocol. ESRD on dialysis Wednesday, Wednesday, Wednesday Hyperkalemia Fluid overload from D5 infusion status post emergent dialysis. Avoid IV hydration if possible Continue HD per nephro Leukocytosis. Improving On amoxicillin per renal. Last dose in 2 days Repeat blood culture x2 negative to date Reviewed chest x-ray with congestion. Abnormal urinalysis with 18 WBC obtain urine culture DVT prophylaxis with SCDs. Code Status: Full code. Discussed Condition With: Patient and nurse Miss Bishop Discharge Planning: Arranging outpatient dialysis is very difficult for this patient. He is not a citizen. Per gearcase assembler, patient can be discharged when medically stable and return to ED for hemodialysis cleared by legal department. Today with Hyperglycemia.
--- NOTE | 2018-07-12 16:10 | P.PNNP ---
Subjective Interval history: Patient resting on right side. Blood sugars have been elevated in the 500 to 600's. <Ariadna Fraire - Last Filed: 07/12/18 16:06> Physical Exam Vital signs: Vital Signs 07/11/18 17:30 07/11/18 20:00 07/12/18 00:00 Temperature 98.2 F 99.1 F Pulse Rate 61 66 Respiratory Rate 18 18 15 Blood Pressure 115/54 L 112/54 L Pulse Oximetry 97 94 L 07/12/18 04:51 07/12/18 08:00 07/12/18 12:00 Temperature 98.2 F 98.9 F 98.1 F Pulse Rate 66 77 69 Respiratory Rate 18 20 16 Blood Pressure 110/56 L 138/68 131/70 Pulse Oximetry 97 97 97 07/12/18 14:12 Temperature Pulse Rate Respiratory Rate 16 Blood Pressure Pulse Oximetry Intake & Output 07/11/18 07/12/18 07/12/18 18:59 06:59 18:59 Intake Total 480 / 480 1960 / 1960 Output Total 3000 / 3000 500 / 500 Balance -2520 / -2520 1460 / 1460 Weight 58.4 kg Intake: Oral 480 / 480 1959 / 1959 Output: Urine 500 / 500 Hemodialysis Amount 3000 / 3000 Other: # Voids 0 2 Date of Last Bowel Movement 07/11/18 07/11/18 # Bowel Movements 0 Narrative: GENERAL: Resting CARDIOVASCULAR: Regular rate and rhythm without murmurs, gallops, or rubs. Permacath IJ RESPIRATORY: Breath sounds equal bilaterally. No accessory muscle use. GASTROINTESTINAL: Abdomen soft, non-tender, slightly distended MUSCULOSKELETAL: No cyanosis, or edema. BACK: Nontender without obvious deformity. No CVA tenderness. <Ariadna Fraire - Last Filed: 07/12/18 16:06> Vital signs: Vital Signs 07/12/18 23:11 07/13/18 04:42 07/13/18 08:00 Temperature 97.9 F 98.2 F 98.0 F Pulse Rate 70 77 68 Respiratory Rate 18 18 14 Blood Pressure 131/70 124/63 136/66 Pulse Oximetry 96 95 96 07/13/18 12:00 07/13/18 16:00 Temperature 98.4 F 98.7 F Pulse Rate 75 72 Respiratory Rate 16 16 Blood Pressure 153/74 H 111/55 L Pulse Oximetry 96 99 Intake & Output 07/13/18 07/13/18 07/14/18 06:59 18:59 06:59 Intake Total 240 / 240 1000 / 1000 Output Total 2500 / 2500 Balance 240 / 240 -1500 / -1500 Weight 58.4 kg Intake: Oral 240 / 240 1000 / 1000 Output: Urine 0 / 0 Hemodialysis Amount 2500 / 2500 Other: # Voids 0 Date of Last Bowel Movement 07/11/18 # Bowel Movements 0 0 <Tom Elise - Last Filed: 07/13/18 19:42> Assessment and Plan - Assessment (1) End-stage renal disease on hemodialysis Code(s): N18.6 - End stage renal disease; Z99.2 - Dependence on renal dialysis Status: Acute Plan: End stage renal disease on hemodialysis Wednesday, Wednesday, Wednesday Permacath IJ Plan Avoid gadolinium Avoid IVF administration Continue / renal diet/low potassium and fluid restriction. Hemodialysis yesterday tolerated well with removal of 3 liters of fluid Continue to monitor electrolytes Continue HD, MWF. (2) Hypertension Code(s): I10 - Essential (primary) hypertension Status: Acute Plan: Blood pressure better controlled Will monitor (3) Insulin dependent diabetes mellitus Code(s): E11.9 - Type 2 diabetes mellitus without complications; Z79.4 - termite technician (current) use of insulin Status: Acute Plan: Blood sugars elevated Maintain blood sugars between 140 mg/dl to 180 mg/dl. Avoid large volume IVFs (4) Nausea & vomiting Code(s): R11.2 - Nausea with vomiting, unspecified Status: Acute Plan: Has improved. CT of abdomen reviewed. (5) Hyponatremia Code(s): E87.1 - Hypo-osmolality and hyponatremia Status: Acute Plan: Sodium level low, also with hyperglycemia Hyperglycemia with associated decreased Na (pseudohyponatremia?) - continue to adjust insulin dosing. <Ariadna Fraire - Last Filed: 07/12/18 16:06> - Assessment (1) End-stage renal disease on hemodialysis Code(s): N18.6 - End stage renal disease; Z99.2 - Dependence on renal dialysis Status: Acute Plan: Patient seen and examine, agree with above. HD done yesterday, BS is labile, no vomiting now and the BP is better. (2) Hypertension Code(s): I10 - Essential (primary) hypertension Status: Acute (3) Insulin dependent diabetes mellitus Code(s): E11.9 - Type 2 diabetes mellitus without complications; Z79.4 - termite technician (current) use of insulin Status: Acute (4) Nausea & vomiting Code(s): R11.2 - Nausea with vomiting, unspecified Status: Acute (5) Hyponatremia Code(s): E87.1 - Hypo-osmolality and hyponatremia Status: Acute <Tom Elise - Last Filed: 07/13/18 19:42>
[2018-07-12] MEDS: Scopalamine 1.5 MG Patch T-DERMAL SCH (17:10)
[2018-07-13] MEDS: Insulin NovoLOG Aspart Correctional Sugar Inj SQ SCH ×5 (04:16→21:50)
[2018-07-13] MEDS: Insulin Detemir Inj 1,000 UNIT/10 ML Vial SQ SCH (07:15)
[2018-07-13] MEDS: Morphine Inj 4 MG/ML Vial IV.PUSH PRN ×2 (09:39→17:34)
[2018-07-13] MEDS: Calcium Acetate 667 MG Capsule PO SCH ×3 (09:42→17:32)
[2018-07-13] MEDS: Senna/Docusate Sodium 8.6/50 MG Tablet PO SCH ×2 (09:42→21:00)
[2018-07-13] MEDS: Metoprolol Tartrate 25 MG Tablet PO SCH ×3 (09:42→17:32)
[2018-07-13] MEDS: Minoxidil 10 MG Tablet PO SCH ×2 (09:42→21:00)
[2018-07-13] MEDS: Brimonidine 0.2% Opth Drops 5 ML Bottle LEFT EYE SCH ×2 (09:46→21:49)
[2018-07-13] MEDS: Timolol 0.5% Drops 5 ML Bottle LEFT EYE SCH ×2 (09:48→21:49)
[2018-07-13] MEDS: HOMATROPINE LEFT EYE SCH ×2 (09:48→21:49)
[2018-07-13] MEDS: prednisoLONE Acetate 1% Opth Susp 5 ML Bottle LEFT EYE SCH ×4 (09:48→21:00)
[2018-07-13] MEDS: OPTH LEFT EYE SCH ×2 (09:48→21:49)
[2018-07-13] MEDS: Moxifloxacin 0.5% Opth Drops 3 ML Bottle LEFT EYE SCH ×4 (09:48→21:00)
[2018-07-13] MEDS: Sodium Chloride 0.9% 2 ML Flush BID IV.FLUSH SCH ×2 (09:49→21:00)
[2018-07-13] MEDS: Metoclopramide Liq 10 MG/10 ML UDC PO SCH ×4 (09:54→21:00)
--- NOTE | 2018-07-13 10:16 | P.PNNP ---
Subjective Interval history: -Resting. Reports some chest discomfort, denies any shortness of breath, nausea , or vomiting. Blood sugars remain labile 137-454. <Ariadna Fraire - Last Filed: 07/13/18 10:11> Physical Exam Vital signs: Vital Signs 07/12/18 12:00 07/12/18 14:12 07/12/18 16:00 Temperature 98.1 F 98.4 F Pulse Rate 69 68 Respiratory Rate 16 16 Blood Pressure 131/70 143/84 H Pulse Oximetry 97 100 07/12/18 19:07 07/12/18 23:11 07/13/18 04:42 Temperature 98.2 F 97.9 F 98.2 F Pulse Rate 66 70 77 Respiratory Rate 17 18 18 Blood Pressure 122/60 131/70 124/63 Pulse Oximetry 96 96 95 07/13/18 08:00 Temperature 98.0 F Pulse Rate 68 Respiratory Rate 16 Blood Pressure 136/66 Pulse Oximetry 96 Intake & Output 07/12/18 07/13/18 07/13/18 18:59 06:59 18:59 Intake Total 1200 / 1200 240 / 240 Balance 1200 / 1200 240 / 240 Weight 58.4 kg Intake: Oral 1200 / 1200 240 / 240 Other: # Voids 4 0 Date of Last Bowel Movement 07/11/18 # Bowel Movements 0 0 Narrative: GENERAL: Alert, resting CARDIOVASCULAR: Regular rate and rhythm without murmurs, gallops, or rubs. Permacath IJ RESPIRATORY: Breath sounds equal bilaterally. No accessory muscle use. GASTROINTESTINAL: Abdomen soft, non-tender, slightly distended MUSCULOSKELETAL: No cyanosis, or edema. BACK: Nontender without obvious deformity. No CVA tenderness. <Ariadna Fraire - Last Filed: 07/13/18 10:11> Vital signs: Vital Signs 07/13/18 20:25 07/14/18 00:46 07/14/18 05:03 Temperature 99.0 F 98.5 F 98.9 F Pulse Rate 76 75 79 Respiratory Rate 17 17 17 Blood Pressure 121/57 L 106/57 L 122/59 L Pulse Oximetry 95 96 94 L 07/14/18 08:00 07/14/18 12:00 07/14/18 16:00 Temperature 99.2 F 97.8 F 98.5 F Pulse Rate 88 78 82 Respiratory Rate 20 20 18 Blood Pressure 147/72 H 138/76 120/87 Pulse Oximetry 96 97 97 Intake & Output 07/14/18 07/14/18 07/15/18 06:59 18:59 06:59 Intake Total 480 / 480 720 / 720 Balance 480 / 480 720 / 720 Intake: Oral 480 / 480 720 / 720 Other: # Voids 0 0 # Bowel Movements 0 <Tom Elise - Last Filed: 07/14/18 19:39> Assessment and Plan - Assessment (1) End-stage renal disease on hemodialysis Code(s): N18.6 - End stage renal disease; Z99.2 - Dependence on renal dialysis Status: Acute Plan: End stage renal disease on hemodialysis Wednesday, Wednesday, Wednesday Permacath IJ Avoid gadolinium and IVF administration Continue fluid restriction. Hemodialysis today will remove fluid as tolerated. Continue to monitor electrolytes Continue HD, MWF. (2) Hypertension Code(s): I10 - Essential (primary) hypertension Status: Acute Plan: Blood pressure better controlled Will monitor (3) Insulin dependent diabetes mellitus Code(s): E11.9 - Type 2 diabetes mellitus without complications; Z79.4 - retirement (current) use of insulin Status: Acute Plan: Blood sugars elevated Maintain blood sugars between 140 mg/dl to 180 mg/dl. Avoid large volume IVFs (4) Nausea & vomiting Code(s): R11.2 - Nausea with vomiting, unspecified Status: Acute Plan: Has improved. CT of abdomen reviewed. (5) Hyponatremia Code(s): E87.1 - Hypo-osmolality and hyponatremia Status: Acute Plan: Sodium level has been low, also with hyperglycemia Hyperglycemia with associated decreased Na (pseudohyponatremia?) - continue to adjust insulin dosing. Labs in AM <Ariadna Fraire - Last Filed: 07/13/18 10:11> - Assessment (1) End-stage renal disease on hemodialysis Code(s): N18.6 - End stage renal disease; Z99.2 - Dependence on renal dialysis Status: Acute Plan: Patient seen and examine, agree with above. Continue HD as per schedule. BP is better, BS is labile. (2) Hypertension Code(s): I10 - Essential (primary) hypertension Status: Acute (3) Insulin dependent diabetes mellitus Code(s): E11.9 - Type 2 diabetes mellitus without complications; Z79.4 - retirement (current) use of insulin Status: Acute (4) Nausea & vomiting Code(s): R11.2 - Nausea with vomiting, unspecified Status: Acute (5) Hyponatremia Code(s): E87.1 - Hypo-osmolality and hyponatremia Status: Acute <Tom Elise - Last Filed: 07/14/18 19:39>
--- NOTE | 2018-07-13 11:21 | P.PN ---
Subjective Interval history: Patient with ESRD on HD, Diabetes Mellitus II with high blood sugar today will adjust management. had Hypoglycemia yesterday after HD. 07/12: Seen in his bedroom, had Hyperglycemia over 600 giving sliding scale that was increased to medium dose. has Hypoglycemia protocol. 07/13: Stable in his bedroom came from hemodialysis, no nausea, vomit or diarrhea, continue adjusting Insulin. Physical Exam Vital signs: Vital Signs 07/12/18 12:00 07/12/18 14:12 07/12/18 16:00 Temperature 98.1 F 98.4 F Pulse Rate 69 68 Respiratory Rate 16 16 Blood Pressure 131/70 143/84 H Pulse Oximetry 97 100 07/12/18 19:07 07/12/18 23:11 07/13/18 04:42 Temperature 98.2 F 97.9 F 98.2 F Pulse Rate 66 70 77 Respiratory Rate 17 18 18 Blood Pressure 122/60 131/70 124/63 Pulse Oximetry 96 96 95 07/13/18 08:00 Temperature 98.0 F Pulse Rate 68 Respiratory Rate 16 Blood Pressure 136/66 Pulse Oximetry 96 Intake & Output 07/12/18 07/13/18 07/13/18 18:59 06:59 18:59 Intake Total 1200 / 1200 240 / 240 Balance 1200 / 1200 240 / 240 Weight 58.4 kg Intake: Oral 1200 / 1200 240 / 240 Other: # Voids 4 0 Date of Last Bowel Movement 07/11/18 # Bowel Movements 0 0 Narrative: GENERAL: Alert, resting CARDIOVASCULAR: Regular rate and rhythm without murmurs, gallops, or rubs. Permacath IJ RESPIRATORY: Breath sounds equal bilaterally. No accessory muscle use. GASTROINTESTINAL: Abdomen soft, non-tender, slightly distended MUSCULOSKELETAL: No cyanosis, or edema. BACK: Nontender without obvious deformity. No CVA tenderness. Results - Labs CBC & Chem 7: 07/12/18 08:33 07/13/18 04:51 Laboratory Results - last 24 hr 07/12/18 07/12/18 07/12/18 10:50 13:56 16:44 POC Glucose 388 H 157 H Random Glucose 622 H* 07/12/18 07/13/18 07/13/18 21:39 04:06 04:51 POC Glucose 274 H 454 H* Random Glucose 440 H D Microbiology 07/10/18 07:43 Blood - Peripheral Aerobic Blood Culture - Preliminary No growth in 3 days 07/10/18 07:43 Blood - Peripheral Anaerobic Blood Culture - Preliminary No growth in 3 days 07/10/18 07:38 Blood - Peripheral Aerobic Blood Culture - Preliminary No growth in 3 days 07/10/18 07:38 Blood - Peripheral Anaerobic Blood Culture - Preliminary No growth in 3 days - Imaging Abdomen/Pelvis CT 07/04/18 00:00 CONCLUSION: 1. Cardiomegaly and moderate pericardial effusion. 2. Small amount of ascitic fluid and anasarca. 3. Nonspecific, nonobstructive bowel gas pattern with limited visualization and delineation of the bowel due to the lack of intravenous and oral contrast as well as the anasarca and ascites.. Chest X-Ray 07/09/18 00:00 CONCLUSION: 1. Significant cardiomegaly. 2. Mild pulmonary vascular congestion bilaterally. - Procedures S/p left eye laser vitrectomy on 06/28/[address] Yanes Assessment and Plan - Plan Mr. Cancino is a very pleasant 28 year old male with a history of end-stage renal disease on dialysis on Wednesday, Wednesday, Wednesday, IDDM, and hypertension who presented to the ED being sent by his ophthalmology Dr. for retinal detachment. Gastroparesis Continue Reglan PO 5mg ACHS. Retinal detachment: Currently followed by supervisor model making Dr. Yanes. S/p left eye laser vitrectomy on 06/28/[address] Yanes Keep facing down for 2 weeks after surgery as tolerated Continue postsurgical care per surgeon recommendations. started on moxifloxacin 0.5 % 1 ggt OS QID, Prednisolone acetate 1% 1 ggt OS QID, brimonidine 0.2% 1 ggt OS BID, Timolol 0.5 % 1ggt OS BID Hypertension, better control today. HTN emergency with bilateral vision loss / retinal detachment Continue Nifedipine, hydralazine, minoxidil and Lopressor. Diabetes mellitus, insulin dependent A1c 5.8 Erratic control secondary to noncompliance per. Diabetic education. Increased Levemir to 15 units daily in am. continue ADA diet. Hypoglycemia protocol. ESRD on dialysis Wednesday, Wednesday, Wednesday Hyperkalemia Fluid overload from D5 infusion status post emergent dialysis. Avoid IV hydration if possible Continue HD per nephro, had Hemodialysis today. Leukocytosis. Improving On amoxicillin per renal. Last dose in 2 days Repeat blood culture x2 negative to date Reviewed chest x-ray with congestion. Abnormal urinalysis with 18 WBC obtain urine culture DVT prophylaxis with SCDs. Code Status: Full code. Discussed Condition With: Patient and Nurse Miss De Oliveira Discharge Planning: Arranging outpatient dialysis is very difficult for this patient. He is not a citizen. Per bottle caser, patient can be discharged when medically stable and return to ED for hemodialysis cleared by legal department. discharge in am tomorrow after discussed with MDR today if arrangements performed by Bog Worker.
[2018-07-13] MEDS ORDERED: Insulin NovoLOG Aspart Correctional Sugar Inj SQ SCH (12:00)
[2018-07-13] MEDS ORDERED: Insulin Detemir Inj 1,000 UNIT/10 ML Vial SQ ONE (13:15)
[2018-07-13] MEDS: Heparin 10,000 UNITS/10 ML Vial (for IV use) OTHER PRN (15:14)
[2018-07-14] MEDS: Insulin NovoLOG Aspart Correctional Sugar Inj SQ SCH ×7 (03:56→22:46)
[2018-07-14] MEDS: Metoclopramide Liq 10 MG/10 ML UDC PO SCH ×4 (07:05→22:47)
[2018-07-14] MEDS: Morphine Inj 4 MG/ML Vial IV.PUSH PRN ×2 (07:05→22:44)
[2018-07-14] MEDS: Calcium Acetate 667 MG Capsule PO SCH ×3 (09:17→17:17)
[2018-07-14] MEDS: Senna/Docusate Sodium 8.6/50 MG Tablet PO SCH ×2 (09:18→22:47)
[2018-07-14] MEDS: Metoprolol Tartrate 25 MG Tablet PO SCH ×3 (09:18→17:17)
[2018-07-14] MEDS: Brimonidine 0.2% Opth Drops 5 ML Bottle LEFT EYE SCH ×2 (09:20→22:55)
[2018-07-14] MEDS: HOMATROPINE LEFT EYE SCH ×2 (09:20→22:57)
[2018-07-14] MEDS: Sodium Chloride 0.9% 2 ML Flush BID IV.FLUSH SCH ×2 (09:20→22:47)
[2018-07-14] MEDS: OPTH LEFT EYE SCH ×2 (09:20→22:57)
[2018-07-14] MEDS: Moxifloxacin 0.5% Opth Drops 3 ML Bottle LEFT EYE SCH ×4 (09:21→22:56)
[2018-07-14] MEDS: prednisoLONE Acetate 1% Opth Susp 5 ML Bottle LEFT EYE SCH ×4 (09:21→22:58)
[2018-07-14] MEDS: Timolol 0.5% Drops 5 ML Bottle LEFT EYE SCH ×2 (09:21→22:55)
[2018-07-14] MEDS: Insulin Detemir Inj 1,000 UNIT/10 ML Vial SQ SCH (09:22)
[2018-07-14] MEDS: Minoxidil 10 MG Tablet PO SCH ×2 (11:23→22:48)
--- NOTE | 2018-07-14 15:17 | P.DS ---
Date of admission: 06/28/18 09:51 Primary care physician: No Primary Care Physician Brief History from admission: Mr. Cancino is a very pleasant 28 year old male with a history of end-stage renal disease on dialysis on Wednesday, Wednesday, Wednesday, IDDM, and hypertension who presented to the ED being sent by his ophthalmology DrKalani for retinal detachment. The patient reports having blurry vision that came and went for the last 3 weeks, but noted that his vision progressively worsened over the past last week. He saw his utility worker production, Dr Yanes, who told him to go the ER. Patient reports that he can see movement, but no shapes or colors. The patient had a blood pressure of 231/133 upon arriving to the ED. The O patient was placed on Cardene drip and blood pressure is better controlled at this time, Cardene drip is weaned off. Restarted blood pressure medications as appropriate. Denies motor or sensory deficit. Denies headaches. Denies any chest pain or shortness of breath. no palpitations. No cough, fever or chills. He is saturating well on room air. Had HD yesterday. DS: Medications - Discharge Medications Prescriptions: brimonidine 1 drops LEFT EYE BID 30 Days ml calcium acetate 1,334 mg PO TID #90 cap insulin NPH and regular human 15 unit SUBCUT BID 30 Days ml insulin regular human 1 sliding scale dose SUBCUT UD 30 Days ml metoprolol tartrate 25 mg PO TID #90 tab nifedipine 60 mg PO DAILY #30 tab pantoprazole 40 mg PO DAILY@1700 #30 tab sennosides-docusate sodium [Senna Plus] 1 tab PO BID #60 tab DS: Summary - Time Spent with Patient Total time spent providing and/or coordinating discharge services: Exam Vital signs: Vital Signs 07/13/18 16:00 07/13/18 20:25 07/14/18 00:46 Temperature 98.7 F 99.0 F 98.5 F Pulse Rate 72 76 75 Respiratory Rate 16 17 17 Blood Pressure 111/55 L 121/57 L 106/57 L Pulse Oximetry 99 95 96 07/14/18 05:03 07/14/18 08:00 07/14/18 12:00 Temperature 98.9 F 99.2 F 97.8 F Pulse Rate 79 88 78 Respiratory Rate 17 20 20 Blood Pressure 122/59 L 147/72 H 138/76 Pulse Oximetry 94 L 96 97 Intake & Output 07/13/18 07/14/18 07/14/18 18:59 06:59 18:59 Intake Total 1000 / 1000 480 / 480 Output Total 2500 / 2500 Balance -1500 / -1500 480 / 480 Intake: Oral 1000 / 1000 480 / 480 Output: Urine 0 / 0 Hemodialysis Amount 2500 / 2500 Other: # Voids 0 Date of Last Bowel Movement 07/11/18 # Bowel Movements 0 0 Results Procedures completed during hospitalization: S/p left eye laser vitrectomy on 06/28/[address] Yanes Labs on day of discharge: Labs from last 24 hours 07/14/18 07/14/18 07/14/18 13:06 11:00 08:05 POC Glucose 366 H 493 H* 468 H* 07/14/18 07/14/18 07/13/18 06:29 03:40 21:35 POC Glucose 281 H 77 141 H 07/13/18 17:13 POC Glucose 307 H Preliminary micro results at discharge 07/10/18 07:43 Aerobic Blood Culture - Preliminary Blood - Peripheral No growth in 4 days Anaerobic Blood Culture - Preliminary No growth in 4 days 07/10/18 07:38 Aerobic Blood Culture - Preliminary Blood - Peripheral No growth in 4 days Anaerobic Blood Culture - Preliminary No growth in 4 days - Impressions ITS Impressions Abdomen/Pelvis CT 07/04/18 00:00 CONCLUSION: 1. Cardiomegaly and moderate pericardial effusion. 2. Small amount of ascitic fluid and anasarca. 3. Nonspecific, nonobstructive bowel gas pattern with limited visualization and delineation of the bowel due to the lack of intravenous and oral contrast as well as the anasarca and ascites.. Chest X-Ray 07/09/18 00:00 CONCLUSION: 1. Significant cardiomegaly. 2. Mild pulmonary vascular congestion bilaterally. Discharge Plan - Discharge Disposition Patient Disposition: Discharge Home - Discharge Condition Condition: Fair - Discharge Order Discharge Orders: Discharge Order (Routine); Ordered 07/14/18 Ordered By: Favio Montoya - Discharge Details Anticipated Discharge Date: 07/14/18 - Physicians Team Primary Care Provider: Primary Care Myla,Mariela Attending Provider: Favio Montoya Other Providers: Dereck Cardoza MD ; Shad Yanes MD
--- NOTE | 2018-07-14 15:51 | P.PNNP ---
Subjective Interval history: Plans for discharge home today. <Ariadna Fraire - Last Filed: 07/14/18 15:49> Physical Exam Vital signs: Vital Signs 07/13/18 16:00 07/13/18 20:25 07/14/18 00:46 Temperature 98.7 F 99.0 F 98.5 F Pulse Rate 72 76 75 Respiratory Rate 16 17 17 Blood Pressure 111/55 L 121/57 L 106/57 L Pulse Oximetry 99 95 96 07/14/18 05:03 07/14/18 08:00 07/14/18 12:00 Temperature 98.9 F 99.2 F 97.8 F Pulse Rate 79 88 78 Respiratory Rate 17 20 20 Blood Pressure 122/59 L 147/72 H 138/76 Pulse Oximetry 94 L 96 97 Intake & Output 07/13/18 07/14/18 07/14/18 18:59 06:59 18:59 Intake Total 1000 / 1000 480 / 480 Output Total 2500 / 2500 Balance -1500 / -1500 480 / 480 Intake: Oral 1000 / 1000 480 / 480 Output: Urine 0 / 0 Hemodialysis Amount 2500 / 2500 Other: # Voids 0 Date of Last Bowel Movement 07/11/18 # Bowel Movements 0 0 Narrative: GENERAL: Alert, resting CARDIOVASCULAR: Regular rate and rhythm without murmurs, gallops, or rubs. Permacath IJ RESPIRATORY: Breath sounds equal bilaterally. No accessory muscle use. GASTROINTESTINAL: Abdomen soft, non-tender, slightly distended MUSCULOSKELETAL: No cyanosis, or edema. BACK: Nontender without obvious deformity. No CVA tenderness. <Ariadna Fraire - Last Filed: 07/14/18 15:49> Vital signs: Intake & Output 07/15/18 07/16/18 07/16/18 18:59 06:59 18:59 Intake Total 1000 / 1000 Output Total 4000 / 4000 Balance -3000 / -3000 Intake: IV 1000 / 1000 D10W Inj 1,000 ML @ 84 mls/hr 1000 / 1000 IV.CONT .[id number] DENEEN Rx#: [id number] Output: Hemodialysis Amount 4000 / 4000 Other: Date of Last Bowel Movement 07/11/18 <Tom Elise - Last Filed: 07/16/18 18:34> Assessment and Plan - Assessment (1) End-stage renal disease on hemodialysis Code(s): N18.6 - End stage renal disease; Z99.2 - Dependence on renal dialysis Status: Acute Plan: Plans for discharge home today Dialysis tomorrow at [facility]. (2) Hypertension Code(s): I10 - Essential (primary) hypertension Status: Acute Plan: Blood pressure better controlled Will monitor (3) Insulin dependent diabetes mellitus Code(s): E11.9 - Type 2 diabetes mellitus without complications; Z79.4 - group home (current) use of insulin Status: Acute Plan: Maintain blood sugars between 140 mg/dl to 180 mg/dl. Avoid large volume IVFs (4) Nausea & vomiting Code(s): R11.2 - Nausea with vomiting, unspecified Status: Acute Plan: Has improved. CT of abdomen reviewed. (5) Hyponatremia Code(s): E87.1 - Hypo-osmolality and hyponatremia Status: Acute Plan: Sodium level has been low, also with hyperglycemia Hyperglycemia with associated decreased Na (pseudohyponatremia?) - continue to adjust insulin dosing. Labs in AM <Ariadna Fraire - Last Filed: 07/14/18 15:49> - Assessment (1) End-stage renal disease on hemodialysis Code(s): N18.6 - End stage renal disease; Z99.2 - Dependence on renal dialysis Status: Acute (2) Hypertension Code(s): I10 - Essential (primary) hypertension Status: Acute (3) Insulin dependent diabetes mellitus Code(s): E11.9 - Type 2 diabetes mellitus without complications; Z79.4 - group home (current) use of insulin Status: Acute (4) Nausea & vomiting Code(s): R11.2 - Nausea with vomiting, unspecified Status: Acute (5) Hyponatremia Code(s): E87.1 - Hypo-osmolality and hyponatremia Status: Acute Plan: Patient seen and examine, agree with above. HD is due for AM. Possible discharge and continue HD as out patient. <Tom Elise - Last Filed: 07/16/18 18:34>
--- NOTE | 2018-07-14 17:05 | P.PN ---
Subjective Interval history: Follow up for retinal detachment, ESRD, diabetes mellitus. Patient is currently doing well. His blood glucose was near 500 today. After giving 2 doses of aspart his blood glucose dropped to 42. Patient was given half amp of D50. His blood glucose improved. Physical Exam Vital signs: Vital Signs 07/13/18 20:25 07/14/18 00:46 07/14/18 05:03 Temperature 99.0 F 98.5 F 98.9 F Pulse Rate 76 75 79 Respiratory Rate 17 17 17 Blood Pressure 121/57 L 106/57 L 122/59 L Pulse Oximetry 95 96 94 L 07/14/18 08:00 07/14/18 12:00 07/14/18 16:00 Temperature 99.2 F 97.8 F 98.5 F Pulse Rate 88 78 82 Respiratory Rate 20 20 18 Blood Pressure 147/72 H 138/76 120/87 Pulse Oximetry 96 97 97 Intake & Output 07/13/18 07/14/18 07/14/18 18:59 06:59 18:59 Intake Total 1000 / 1000 480 / 480 Output Total 2500 / 2500 Balance -1500 / -1500 480 / 480 Intake: Oral 1000 / 1000 480 / 480 Output: Urine 0 / 0 Hemodialysis Amount 2500 / 2500 Other: # Voids 0 Date of Last Bowel Movement 07/11/18 # Bowel Movements 0 0 Narrative: GENERAL: Alert, resting well in bed. CARDIOVASCULAR: Regular rate and rhythm without murmurs, gallops, or rubs. Permacath IJ RESPIRATORY: Breath sounds equal bilaterally. No accessory muscle use. GASTROINTESTINAL: Abdomen soft, non-tender, slightly distended MUSCULOSKELETAL: No cyanosis, or edema. BACK: Nontender without obvious deformity. No CVA tenderness. Results - Labs CBC & Chem 7: 07/12/18 08:33 07/13/18 04:51 Laboratory Results - last 24 hr 07/13/18 07/13/18 07/14/18 17:13 21:35 03:40 POC Glucose 307 H 141 H 77 07/14/18 07/14/18 07/14/18 06:29 08:05 11:00 POC Glucose 281 H 468 H* 493 H* 07/14/18 07/14/18 07/14/18 13:06 16:13 16:20 POC Glucose 366 H 42 L* 121 H Microbiology 07/10/18 07:43 Blood - Peripheral Aerobic Blood Culture - Preliminary No growth in 4 days 07/10/18 07:43 Blood - Peripheral Anaerobic Blood Culture - Preliminary No growth in 4 days 07/10/18 07:38 Blood - Peripheral Aerobic Blood Culture - Preliminary No growth in 4 days 07/10/18 07:38 Blood - Peripheral Anaerobic Blood Culture - Preliminary No growth in 4 days - Procedures S/p left eye laser vitrectomy on 06/28/[address] Yanes Assessment and Plan - Plan Mr. Cancino is a very pleasant 28 year old male with a history of end-stage renal disease on dialysis on Wednesday, Wednesday, Wednesday, IDDM, and hypertension who presented to the ED being sent by his mold design engineer, Dr. Yanes for retinal detachment. Gastroparesis Continue Reglan PO 5mg ACHS. Retinal detachment: Currently followed by mold design engineer Dr. Yanes. S/p left eye laser vitrectomy on 06/28/[address] Yanes Keep facing down for 2 weeks after surgery as tolerated Continue postsurgical care per surgeon recommendations. started on moxifloxacin 0.5 % 1 ggt OS QID, Prednisolone acetate 1% 1 ggt OS QID, brimonidine 0.2% 1 ggt OS BID, Timolol 0.5 % 1ggt OS BID Hypertension, better control today. HTN emergency with bilateral vision loss / retinal detachment Continue Nifedipine, hydralazine, minoxidil and Lopressor. Diabetes mellitus, insulin dependent A1c 5.8 Erratic control secondary to noncompliance per. Diabetic education. Increased Levemir to 15 units daily in am. continue ADA diet. Hypoglycemia protocol. 07/14/2018: Patient's glucose was near 500. After two doses of Aspart (12 units and then 15 units), his glucose dropped to 42. Patient was given 1/2 Amp of D50 which increased his BG to 120s. Discussed with RN. We will check BG again. If it remains low (<70), we will start D10 at 84cc/hour and keep him overnight for observation. IF Blood glucose remains above 70-80, we can discharge him home. ESRD on dialysis Wednesday, Wednesday, Wednesday Hyperkalemia Avoid IV hydration if possible Continue HD per nephro, had Hemodialysis today. Leukocytosis. Improving On amoxicillin per renal. Last dose tomorrow 07/15/2018. Repeat blood culture x2 negative to date Reviewed chest x-ray with congestion. Abnormal urinalysis with 18 WBC obtain urine culture DVT prophylaxis with SCDs. Full code.
[2018-07-14] MEDS: Dextrose 10% in Water Inj 1,000 ML IV.CONT SCH (17:47)
[2018-07-15] MEDS: Morphine Inj 4 MG/ML Vial IV.PUSH PRN (03:20)
[2018-07-15] MEDS: Insulin NovoLOG Aspart Correctional Sugar Inj SQ SCH ×3 (03:20→14:38)
[2018-07-15] MEDS: Metoprolol Tartrate 25 MG Tablet PO SCH ×2 (08:00)
[2018-07-15] MEDS: Sodium Chloride 0.9% 2 ML Flush BID IV.FLUSH SCH (08:00)
[2018-07-15] MEDS: Insulin Detemir Inj 1,000 UNIT/10 ML Vial SQ SCH (08:00)
[2018-07-15] MEDS: Metoclopramide Liq 10 MG/10 ML UDC PO SCH ×2 (08:00→14:44)
[2018-07-15] MEDS: Calcium Acetate 667 MG Capsule PO SCH ×2 (08:00→14:25)
[2018-07-15] MEDS: Dextrose 10% in Water Inj 1,000 ML IV.CONT SCH (08:21)
[2018-07-15 08:43] VITALS: RESP 16
[2018-07-15] MEDS: Heparin 10,000 UNITS/10 ML Vial (for IV use) OTHER PRN (12:36)
[2018-07-15] MEDS: prednisoLONE Acetate 1% Opth Susp 5 ML Bottle LEFT EYE SCH ×2 (14:27→14:45)
[2018-07-15] MEDS: HOMATROPINE LEFT EYE SCH (14:27)
[2018-07-15] MEDS: Brimonidine 0.2% Opth Drops 5 ML Bottle LEFT EYE SCH (14:27)
[2018-07-15] MEDS: Moxifloxacin 0.5% Opth Drops 3 ML Bottle LEFT EYE SCH (14:27)
[2018-07-15] MEDS: Timolol 0.5% Drops 5 ML Bottle LEFT EYE SCH (14:27)
[2018-07-15] MEDS: OPTH LEFT EYE SCH (14:27)
[2018-07-15] MEDS: Senna/Docusate Sodium 8.6/50 MG Tablet PO SCH (14:34)
[2018-07-15] MEDS: Minoxidil 10 MG Tablet PO SCH (14:37)
--- NOTE | 2018-07-15 16:36 | P.PNNP ---
Subjective Interval history: Patient seen after HD, alert, no SOB, now eating better. Physical Exam Vital signs: Vital Signs 07/14/18 20:00 07/14/18 23:30 07/15/18 00:00 Temperature 96.4 F L 99.0 F Pulse Rate 63 70 Respiratory Rate 20 18 19 Blood Pressure 107/51 L 111/55 L Pulse Oximetry 93 L 97 07/15/18 04:00 07/15/18 05:30 07/15/18 08:00 Temperature 99.0 F 99.4 F Pulse Rate 70 73 Respiratory Rate 18 18 16 Blood Pressure 109/52 L 113/58 L Pulse Oximetry 98 94 L 07/15/18 14:05 Temperature 97.4 F L Pulse Rate 98 H Respiratory Rate 16 Blood Pressure 126/65 Pulse Oximetry 97 Intake & Output 07/14/18 07/15/18 07/15/18 18:59 06:59 18:59 Intake Total 720 / 720 120 / 120 1000 / 1000 Output Total 4000 / 4000 Balance 720 / 720 120 / 120 -3000 / -3000 Weight 54.1 kg Intake: IV 1000 / 1000 D10W Inj 1,000 ML @ 84 mls/hr 1000 / 1000 IV.CONT .[id number] DENEEN Rx#: [id number] Oral 720 / 720 120 / 120 Output: Hemodialysis Amount 4000 / 4000 Other: # Voids 0 0 Date of Last Bowel Movement 07/11/18 07/11/18 # Bowel Movements 0 Narrative: GENERAL: Alert, resting well in bed. CARDIOVASCULAR: Regular rate and rhythm without murmurs, gallops, or rubs. Permacath IJ RESPIRATORY: Breath sounds equal bilaterally. No accessory muscle use. GASTROINTESTINAL: Abdomen soft, non-tender, slightly distended MUSCULOSKELETAL: No cyanosis, or edema. BACK: Nontender without obvious deformity. No CVA tenderness. Assessment and Plan - Assessment (1) End-stage renal disease on hemodialysis Code(s): N18.6 - End stage renal disease; Z99.2 - Dependence on renal dialysis Status: Acute Plan: Patient has HD done, tolerated well. BS is better today, was low yesterday. Possible discharge today, continue out patient HD. (2) Hypertension Code(s): I10 - Essential (primary) hypertension Status: Acute Plan: Blood pressure better controlled Will monitor (3) Insulin dependent diabetes mellitus Code(s): E11.9 - Type 2 diabetes mellitus without complications; Z79.4 - terminal system operator (current) use of insulin Status: Acute Plan: Maintain blood sugars between 140 mg/dl to 180 mg/dl. Avoid large volume IVFs (4) Nausea & vomiting Code(s): R11.2 - Nausea with vomiting, unspecified Status: Acute Plan: Has improved. CT of abdomen reviewed. (5) Hyponatremia Code(s): E87.1 - Hypo-osmolality and hyponatremia Status: Acute Plan: Sodium level has been low, also with hyperglycemia Hyperglycemia with associated decreased Na (pseudohyponatremia?) - continue to adjust insulin dosing. Labs in AM
[2018-07-15 16:37] VITALS: BP 111/53; PULSE 80; TEMP 98.4; O2SAT 95
--- NOTE | 2018-07-15 16:38 | P.DS ---
Date of admission: 06/28/18 09:51 Primary care physician: No Primary Care Physician Brief History from admission: Mr. Cancino is a very pleasant 28 year old male with a history of end-stage renal disease on dialysis on Wednesday, Wednesday, Wednesday, IDDM, and hypertension who presented to the ED being sent by his ophthalmology DrKalani for retinal detachment. The patient reports having blurry vision that came and went for the last 3 weeks, but noted that his vision progressively worsened over the past last week. He saw his teradata solution architect, Dr Yanes, who told him to go the ER. Patient reports that he can see movement, but no shapes or colors. The patient had a blood pressure of 231/133 upon arriving to the ED. The O patient was placed on Cardene drip and blood pressure is better controlled at this time, Cardene drip is weaned off. Restarted blood pressure medications as appropriate. Denies motor or sensory deficit. Denies headaches. Denies any chest pain or shortness of breath. no palpitations. No cough, fever or chills. He is saturating well on room air. Had HD yesterday. DS: Medications - Discharge Medications Prescriptions: brimonidine 1 drops LEFT EYE BID 30 Days ml calcium acetate 1,334 mg PO TID #90 cap insulin NPH and regular human 10 unit SUBCUT BID 30 Days ml insulin regular human 1 sliding scale dose SUBCUT UD 30 Days ml metoprolol tartrate 25 mg PO TID #90 tab moxifloxacin [Vigamox] 1 drop LEFT EYE QID 14 Days ml nifedipine 60 mg PO DAILY #30 tab pantoprazole 40 mg PO DAILY@1700 #30 tab sennosides-docusate sodium [Senna Plus] 1 tab PO BID #60 tab DS: Summary - Time Spent with Patient Total time spent providing and/or coordinating discharge services: Exam Vital signs: Vital Signs 07/14/18 20:00 07/14/18 23:30 07/15/18 00:00 Temperature 96.4 F L 99.0 F Pulse Rate 63 70 Respiratory Rate 20 18 19 Blood Pressure 107/51 L 111/55 L Pulse Oximetry 93 L 97 07/15/18 04:00 07/15/18 05:30 07/15/18 08:00 Temperature 99.0 F 99.4 F Pulse Rate 70 73 Respiratory Rate 18 18 16 Blood Pressure 109/52 L 113/58 L Pulse Oximetry 98 94 L 07/15/18 14:05 07/15/18 16:00 Temperature 97.4 F L 98.4 F Pulse Rate 98 H 80 Respiratory Rate 16 16 Blood Pressure 126/65 111/53 L Pulse Oximetry 97 95 Intake & Output 07/14/18 07/15/18 07/15/18 18:59 06:59 18:59 Intake Total 720 / 720 120 / 120 1000 / 1000 Output Total 4000 / 4000 Balance 720 / 720 120 / 120 -3000 / -3000 Weight 54.1 kg Intake: IV 1000 / 1000 D10W Inj 1,000 ML @ 84 mls/hr 1000 / 1000 IV.CONT .[id number] DENEEN Rx#: [id number] Oral 720 / 720 120 / 120 Output: Hemodialysis Amount 4000 / 4000 Other: # Voids 0 0 Date of Last Bowel Movement 07/11/18 07/11/18 # Bowel Movements 0 Results Procedures completed during hospitalization: S/p left eye laser vitrectomy on 06/28/[address] Yanes Labs on day of discharge: Labs from last 24 hours 07/15/18 07/15/18 07/15/18 14:25 12:29 08:27 POC Glucose 336 H 272 H 241 H 07/15/18 07/14/18 07/14/18 03:07 22:33 18:36 POC Glucose 190 H 271 H 98 07/14/18 17:34 POC Glucose 43 L* - Impressions ITS Impressions Abdomen/Pelvis CT 07/04/18 00:00 CONCLUSION: 1. Cardiomegaly and moderate pericardial effusion. 2. Small amount of ascitic fluid and anasarca. 3. Nonspecific, nonobstructive bowel gas pattern with limited visualization and delineation of the bowel due to the lack of intravenous and oral contrast as well as the anasarca and ascites.. Chest X-Ray 07/09/18 00:00 CONCLUSION: 1. Significant cardiomegaly. 2. Mild pulmonary vascular congestion bilaterally. Discharge Plan - Discharge Disposition Patient Disposition: 01 Discharge Home - Discharge Condition Condition: Fair - Discharge Order Discharge Orders: Discharge Order (Routine); Ordered 07/15/18 Ordered By: Favio Montoya - Discharge Details Anticipated Discharge Date: 07/14/18 - Physicians Team Primary Care Provider: Primary Care Physici,No Attending Provider: Favio Montoya Other Providers: Dereck Cardoza MD ; Shad Yanes MD
== END 2018-07-15 17:03 | disposition home or self-care (01) ==
LOC: NEPC 07:31 → NEDA 09:51 → N03 11:45 → N06 07-07 21:33
PROVIDERS: ADMIT Hospitalist; ATTEND Hospitalist

== ENCOUNTER 2018-08-31 08:28 | Inpatient (IN) ==
[2018-08-31] MEDS ORDERED: Piperacil/Tazo 4.5 GM Premix 4.5 GM/100 ML BAG IV.SIG STA (08:44)
[2018-08-31] MEDS ORDERED: Vancomycin Inj 1,000 MG in Sodium Chlor 0.9% Inj 250 ML IV.SIG STA (08:44)
--- NOTE | 2018-08-31 08:44 | ED ---
HPI General Chief Complaint: Nausea/Vomiting/Diarrhea Stated Complaint: Medical Time Seen by Provider: 08/31/18 08:33 Source: patient Mode of arrival: ambulatory Limitations: no limitations History of Present Illness HPI Narrative: 28 y/o male presents with 1 day history of vomiting, cough, generalized weakness and fever. He went to dialysis today but given the way he looked they sent him here for further care before his dialysis. He states Dr. elise is his kidney doctor. He states when he has been like this before it has been pneumonia. He states he has been on dialysis for a little while now and that he had to have his catheter switched out in July due to a clot. He states he still produces a little bit of urine. He states no other concurrent complaints at this time but history is limited given clinical acuity Related Data Home Medications Medication Instructions Recorded Confirmed clonidine HCl 0.3 mg PO TID 06/28/18 08/31/18 folic acid 0.4 mg PO DAILY 06/28/18 08/31/18 hydralazine 100 mg PO TID 06/28/18 08/31/18 minoxidil 10 mg PO BID 06/28/18 08/31/18 Previous Rx's Medication Instructions Recorded calcium acetate 1,334 mg PO TID #90 cap 07/11/18 nifedipine 60 mg PO DAILY #30 tab 07/11/18 pantoprazole 40 mg PO DAILY@1700 #30 tab 07/11/18 insulin regular human 1 sliding scale dose SUBCUT UD 30 07/14/18 Days ml insulin NPH and regular human 10 unit SUBCUT BID 30 Days ml 07/15/18 Allergies Allergy/AdvReac Type Severity Reaction Status Date / Time No Known Allergies Allergy Verified 08/31/18 08:50 Review of Systems ROS: all other systems reviewed are negative [facility] Medical History Medical History Diabetes (Acute) End stage chronic kidney disease (Acute) HBP (high blood pressure) (Acute) Joint pain (Acute) Renal disease (Acute) Visual impairment (Acute) Surgical History Surgical History Hx of cholecystectomy (Acute) Family History Family History Other No pertinent family history Social History Social History Substance History: No History of Abuse Second Hand Smoke Exposure: No Smoking Status: Never smoker How Often Do You Have a Drink Containing Alcohol: Never Recent Travel in [facility] within the Last 8 Weeks: No Recent Out of Country Travel within the Last 8 Weeks: No Exam Narrative Exam Narrative: GENERAL: 28 y/o male who is diaphoretic and ill-appearing SKIN: Focused skin assessment warm/dry. HEAD: Atraumatic. Normocephalic. EYES: Pupils equal and round. No scleral icterus. No injection or drainage. ENT: No nasal bleeding or discharge. Mucous membranes pink and moist. NECK: Trachea midline. No JVD. CARDIOVASCULAR: Tachycardic rate and regular rhythm RESPIRATORY: No accessory muscle use. Clear to auscultation at apices. Breath sounds equal bilaterally. GASTROINTESTINAL: Abdomen soft, non-tender, nondistended. MUSCULOSKELETAL: No obvious deformities. No clubbing. No cyanosis. NEUROLOGICAL: Awake and alert. Motor grossly within normal limits. Normal speech. PSYCHIATRIC: Appropriate mood and affect; insight and judgment normal. Course Reevaluation(s) Reevaluation #1: Patient's blood pressure remains elevated. Will dose with 0.1 of clonidine and reassess. He normally takes 0.3 but get up and setting of sepsis I do not want to lower him to much. 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 Reevaluation #3: Patient updated and agrees to admission Consultations Consultation #1: dr elise will arrange dialysis Consultation #2: dr morley agrees to admit Initial Documented Vital Signs Temperature 98.6 F 08/31/18 08:40 Pulse Rate 120 H 08/31/18 08:40 Respiratory Rate 22 08/31/18 08:40 Blood Pressure 239/134 H 08/31/18 08:40 Pulse Oximetry 97 08/31/18 08:40 Last Documented Vital Signs Temperature 98.8 F 08/31/18 10:15 Pulse Rate 120 H 08/31/18 11:30 Respiratory Rate 29 H 08/31/18 11:30 Blood Pressure 228/139 H 08/31/18 11:30 Pulse Oximetry 98 08/31/18 11:30 Medical Decision Making MDM Narrative Medical decision making narrative: We will check blood work, chest x-ray, urinalysis and initiate antibiotics of Zosyn and vancomycin Medical Screen Exam Complete: Yes Emergency Medical Condition: Yes Differential Diagnosis Differential Diagnosis: Pneumonia, sepsis, URI, hyperkalemia Lab Data Lab results reviewed: Yes I reviewed the patient's lab results. Result diagrams: 08/31/18 08:40 08/31/18 08:40 Lab Results 08/31/18 08/31/18 08/31/18 Range/Units 08:40 08:40 08:40 WBC 20.6 H (4.0-11.0) th/mm3 RBC 4.71 (4.50-5.90) mil/mm3 Hgb 12.3 L (13.0-17.0) gm/dL Hct 36.4 L (39.0-51.0) % MCV 77.3 L (80.0-100.0) fL MCH 26.0 L (27.0-34.0) pg MCHC 33.7 (32.0-36.0) % RDW 30.1 H (11.6-17.2) % Plt Count 272 (150-450) th/mm3 MPV 8.5 (7.0-11.0) fL Prelim Diff (Auto) Slide review pending Neut % (Auto) 91.4 H (16.0-70.0) % Lymph % (Auto) 3.1 L (9.0-44.0) % Surry % (Auto) 5.0 (0.0-8.0) % Eos % (Auto) 0.0 (0.0-4.0) % Baso % (Auto) 0.5 (0.0-2.0) % Neut # (Auto) 18.8 H (1.8-7.7) th/mm3 Lymph # (Auto) 0.6 L (1.0-4.8) th/mm3 Surry # (Auto) 1.0 H (0.0-0.9) th/mm3 Eos # (Auto) 0.0 (0.0-0.4) th/mm3 Baso # (Auto) 0.1 (0.0-0.2) th/mm3 WBC Differential . Diff Scan Auto diff confirmed Differential Comment . Platelet Estimate Normal (Normal) Platelet Morphology Normal (Normal) Dimorphic RBCs Present H (None) Tear Drop Cells 1+ H (None) Ovalocytes 3+ H (None) Acanthocytes (Spur) 1+ H (None) PT 12.0 H (9.8-11.6) sec INR 1.2 Ratio APTT 28.7 (23.4-31.7) sec Sodium 139 (136-145) meq/L Potassium 5.2 H (3.5-5.1) meq/L Chloride 100 (98-107) meq/L Carbon Dioxide 21.1 (21.0-32.0) meq/L Anion Gap 18 H (5-15) meq/L BUN 85 H (7-18) mg/dL Creatinine 10.43 H* (0.60-1.30) mg/dL Estimated GFR 7 L (>89) mL/min POC Glucose (68-110) mg/dl Random Glucose 179 H (74-106) mg/dL Lactic Acid (0.4-2.0) mmol/L Calcium 10.2 H (8.5-10.1) mg/dL Phosphorus 6.1 H (2.5-4.9) mg/dL Magnesium 2.5 (1.5-2.5) mg/dL Total Bilirubin 2.0 H (0.2-1.0) mg/dL AST 66 H (15-37) U/L ALT 98 H (12-78) U/L Alkaline Phosphatase 234 H (45-117) U/L Total Creatine Kinase 330 H (39-308) U/L CK-MB (CK-2) 21.4 H (0.5-3.6) ng/mL CK-MB (CK-2) % 6.5 H* (0.0-4.0) % Troponin I 0.18 H (0.02-0.05) ng/mL Total Protein 9.9 H (6.4-8.2) g/dL Albumin 4.5 (3.4-5.0) g/dL Lipase 71 L (73-393) U/L 08/31/18 08/31/18 Range/Units 08:40 08:43 WBC (4.0-11.0) th/mm3 RBC (4.50-5.90) mil/mm3 Hgb (13.0-17.0) gm/dL Hct (39.0-51.0) % MCV (80.0-100.0) fL MCH (27.0-34.0) pg MCHC (32.0-36.0) % RDW (11.6-17.2) % Plt Count (150-450) th/mm3 MPV (7.0-11.0) fL Prelim Diff (Auto) Neut % (Auto) (16.0-70.0) % Lymph % (Auto) (9.0-44.0) % Surry % (Auto) (0.0-8.0) % Eos % (Auto) (0.0-4.0) % Baso % (Auto) (0.0-2.0) % Neut # (Auto) (1.8-7.7) th/mm3 Lymph # (Auto) (1.0-4.8) th/mm3 Surry # (Auto) (0.0-0.9) th/mm3 Eos # (Auto) (0.0-0.4) th/mm3 Baso # (Auto) (0.0-0.2) th/mm3 WBC Differential Diff Scan Differential Comment Platelet Estimate (Normal) Platelet Morphology (Normal) Dimorphic RBCs (None) Tear Drop Cells (None) Ovalocytes (None) Acanthocytes (Spur) (None) PT (9.8-11.6) sec INR Ratio APTT (23.4-31.7) sec Sodium (136-145) meq/L Potassium (3.5-5.1) meq/L Chloride (98-107) meq/L Carbon Dioxide (21.0-32.0) meq/L Anion Gap (5-15) meq/L BUN (7-18) mg/dL Creatinine (0.60-1.30) mg/dL Estimated GFR (>89) mL/min POC Glucose 180 H (68-110) mg/dl Random Glucose (74-106) mg/dL Lactic Acid 2.0 (0.4-2.0) mmol/L Calcium (8.5-10.1) mg/dL Phosphorus (2.5-4.9) mg/dL Magnesium (1.5-2.5) mg/dL Total Bilirubin (0.2-1.0) mg/dL AST (15-37) U/L ALT (12-78) U/L Alkaline Phosphatase (45-117) U/L Total Creatine Kinase (39-308) U/L CK-MB (CK-2) (0.5-3.6) ng/mL CK-MB (CK-2) % (0.0-4.0) % Troponin I (0.02-0.05) ng/mL Total Protein (6.4-8.2) g/dL Albumin (3.4-5.0) g/dL Lipase (73-393) U/L Imaging Data Attestation: I personally reviewed and interpreted this imaging study as follows : Radiologist's impression: Chest X-Ray 08/31/18 08:38 CONCLUSION: Minimal consolidative changes left base suspicious for inflammatory process. Mild interstitial edema. Discharge Plan Discharge Disposition Patient Disposition: ED Admit(ED Internal Use Only) Discharge Order Discharge Orders: ED Use Only Admit Order (Routine); Ordered 08/31/18 Ordered By: Anny Hilario Discharge Details Diagnosis: Sepsis, Influenza A, End-stage renal disease on hemodialysis, Hypertension, Insulin dependent diabetes mellitus, Nausea & vomiting Physicians Team ED Provider: Anny Hilario Primary Care Provider: Primary Care Mariela Lanza Attending Provider: Cheng Morley Other Providers: Tom Elise Discharge Interventions Interventions: Vital Signs Last Done: 08/31/18 10:15 Status ED Status: Admitted Patient
--- NOTE | 2018-08-31 09:35 | XR ---
EXAM DATE: 08/31/2018 9:21 AM EST AGE/SEX: 28 years / Male INDICATIONS: Fever. CLINICAL DATA: This is the patient's initial encounter. Patient reports that signs and symptoms have been present for 1 day and indicates a pain score of 0/10. MEDICAL/SURGICAL HISTORY: Diabetes mellitus type I. Hypertension. Renal failure. Renal disease , end stage. . Cholecystectomy. Renal biopsy, Vas-cath COMPARISON: . FINDINGS: Dialysis catheter in good position. The heart is enlarged. Mild interstitial edema is present. Minimal consolidative changes in the left base suspicious for inflammatory process. CONCLUSION: Minimal consolidative changes left base suspicious for inflammatory process. Mild interstitial edema. Electronically signed by: Kevan Lenz MD 08/31/2018 9:34 AM EST
[2018-08-31 09:36] LABS: Baso # (Auto) 0.1 th/mm3 (0.0-0.2); Baso % (Auto) 0.5 % (0.0-2.0); Hematocrit 36.4 % (39.0-51.0); Hemoglobin 12.3 gm/dL (13.0-17.0); Lymph # (Auto) 0.6 th/mm3 (1.0-4.8); Lymph % (Auto) 3.1 % (9.0-44.0); Mean Corpuscular HGB Conc 33.7 % (32.0-36.0); Mean Corpuscular Volume 77.3 fL (80.0-100.0); Mean Platelet Volume 8.5 fL (7.0-11.0); Neut # (Auto) 18.8 th/mm3 (1.8-7.7); Neut % (Auto) 91.4 % (16.0-70.0); Platelet Count 272 th/mm3 (150-450); Red Blood Count 4.71 mil/mm3 (4.50-5.90); Red Cell Distribution Width 30.1 % (11.6-17.2); White Blood Count 20.6 th/mm3 (4.0-11.0)
[2018-08-31 09:39] LABS: Activated Partial Thrombo Time 28.7 sec (23.4-31.7); INR 1.2 Ratio
[2018-08-31 09:59] LABS: Albumin 4.5 g/dL (3.4-5.0); Anion Gap 18 meq/L (5-15); Aspartate Aminotransferase 66 U/L (15-37); Blood Urea Nitrogen 85 mg/dL (7-18); Calcium 10.2 mg/dL (8.5-10.1); Carbon Dioxide 21.1 meq/L (21.0-32.0); Chloride 100 meq/L (98-107); Glomerular Filtration Rate 7 mL/min (>89); Glucose,Random 179 mg/dL (74-106); Lipase 71 U/L (73-393); Magnesium 2.5 mg/dL (1.5-2.5); Potassium 5.2 meq/L (3.5-5.1); Sodium 139 meq/L (136-145)
[2018-08-31 10:00] LABS: Alanine Aminotransferase 98 U/L (12-78)
[2018-08-31 10:03] LABS: Alkaline Phosphatase 234 U/L (45-117); Creatine Kinase 330 U/L (39-308); Phosphorus 6.1 mg/dL (2.5-4.9); Total Protein 9.9 g/dL (6.4-8.2); Troponin I 0.18 ng/mL (0.02-0.05)
[2018-08-31 10:17] LABS: Acanthocytes 1+; Ovalocytes 3+
[2018-08-31 10:18] LABS: Tear Drop Cells 1+
[2018-08-31 10:19] LABS: Dimorphic RBC Present; Platelet Estimate Normal (Normal); Platelet Morphology Normal (Normal)
[2018-08-31 10:34] LABS: Creatine Kinase MB 21.4 ng/mL (0.5-3.6)
[2018-08-31] MEDS ORDERED: Dextrose 50% in Water 50 ML Vial IV.PUSH PRN (10:51)
[2018-08-31] MEDS ORDERED: hydrALAZINE HCl Inj 20 MG/ML Vial IV.PUSH PRN (10:51)
[2018-08-31] MEDS ORDERED: Oseltamivir Phosphate 30 MG Capsule PO ONE (10:52)
[2018-08-31] MEDS ORDERED: Bisacodyl 10 MG Supp RECTAL PRN (10:56)
[2018-08-31 11:03] LABS: CKMB Percent 6.5 % (0.0-4.0)
[2018-08-31] MEDS ORDERED: Sod Chloride 0.9% Inj 1,000 ML OTHER PRN ×2 (11:32)
[2018-08-31] MEDS ORDERED: Albumin Human 25% Inj 100 ML IV.SIG PRN (11:32)
[2018-08-31] MEDS ORDERED: Gelatin 12 MM/7 MM Topical Foam TOPICAL PRN (11:32)
[2018-08-31] MEDS ORDERED: Acetaminophen 325 MG Tablet PO PRN (11:32)
[2018-08-31] MEDS ORDERED: Heparin 10,000 UNITS/10 ML Vial (for IV use) OTHER PRN ×2 (11:32)
[2018-08-31] MEDS ORDERED: Sod Chloride 0.9% Inj 1,000 ML IV.CONT PRN (11:32)
--- NOTE | 2018-08-31 11:44 | P.CONNP ---
<MargauxaidenAriadna oconnell - Last Filed: 08/31/18 11:33> History of Present Illness Service: Nephrology Consult date: 08/31/18 Requesting Physician: Cheng Morley Reason for Consult: End stage renal disease on hemodialysis Primary Care Provider: No Primary Care Physician History of Present Illness: Patient is 28 y/o male presents with 1 day history of vomiting, cough, generalized weakness and fever. He went to dialysis today but given the way he looked they sent him here for further care before his dialysis. Patient with past medical history of diabetes type 1, hypertension, end stage renal disease on hemodialysis, and gastroparesis. Nephrology is consulted for management of hemodialysis. Dialysis has been contacted and orders placed. Chest xray with minimal consolidative changes left base suspicious for inflammatory process.Mild interstitial edema. Positive for influenza A. Also hypertension with SBP at 230. Patient is diaphoretic, short of breath, nauseated, with generalized weakness. Review of Systems GENERAL: Diaphoretic and ill appearing. SKIN: Warm and dry. NECK: Supple, trachea midline. No JVD CARDIOVASCULAR: Tachycardia. Regular rate and rhythm without murmurs, gallops, or rubs. Perma cath right chest wall. RESPIRATORY: Breath sounds diminished bilaterally. No accessory muscle use. GASTROINTESTINAL: Abdomen soft, non-tender, nondistended. MUSCULOSKELETAL: No cyanosis, or edema. BACK: Nontender without obvious deformity. No CVA tenderness. [facility] - History History Provided By: Patient, Pmo Analyst / EMT - Medical History Medical History: Medical History (Last Reviewed 08/31/18 @ 08:43 by Anny Hilario MD) Diabetes End stage chronic kidney disease HBP (high blood pressure) Joint pain Renal disease Visual impairment - Surgical History Surgical History: Surgical History (Last Reviewed 08/31/18 @ 08:43 by Anny Hilario MD) Hx of cholecystectomy - Family History Family History: Family History (Last Reviewed 08/31/18 @ 08:43 by Anny Hilario MD) Other No pertinent family history - Tobacco History Second Hand Smoke Exposure: No Tobacco Use In Past 30 Days: No Smoking Status: Never smoker - Alcohol History How Often Do You Have a Drink Containing Alcohol: Never - Substance Use History Substance History: No History of Abuse - Travel History Recent Travel in the [place] Within the Last 8 Weeks: No Recent Travel Out of the Country Within the Last 8 Weeks: No - Immunization History Tetanus Immunization: <5 Years Medications and Allergies Allergies Allergy/AdvReac Type Severity Reaction Status Date / Time No Known Allergies Allergy Verified 08/31/18 08:50 Home Medications Medication Instructions Recorded Confirmed Type clonidine HCl 0.3 mg PO TID 06/28/18 08/31/18 History folic acid 0.4 mg PO DAILY 06/28/18 08/31/18 History hydralazine 100 mg PO TID 06/28/18 08/31/18 History minoxidil 10 mg PO BID 06/28/18 08/31/18 History Active Medications: Active Medications Acetaminophen (Tylenol) 650 mg PO Q4H PRN PRN Reason: Temp > 100.4 Acetaminophen (Tylenol) 650 mg PO UNSCH PRN PRN Reason: SEE LABEL COMMENTS Bisacodyl (Dulcolax Supp) 10 mg RECTAL DAILY PRN PRN Reason: SEVERE CONSITIPATION Calcium Acetate (Phoslo) 1,334 mg PO TID [facility] Clonidine HCl (Catapres) 0.3 mg PO TID [facility] Clonidine HCl (Catapres) 0.3 mg PO Q6H PRN PRN Reason: SEE LABEL COMMENTS Dextrose (D50w Vial) 50 ml IV.PUSH UNSCH PRN PRN Reason: PER HYPOGLYCEMIA PROTOCOL Glucagon (Glucagon Inj) 1 mg OTHER PRN PRN PRN Reason: for Hypoglycemia Protocol Hydralazine HCl (Apresoline Inj) 10 mg IV.PUSH Q6H PRN PRN Reason: SEE LABEL COMMENTS Hydralazine HCl (Apresoline) 100 mg PO TID [facility] Piperacillin/Tazobactam/Dextrose (Zosyn 4.5 Gm Premix) 4.5 gm in 100 mls @ 200 mls/hr IV.SIG Q6H [facility] Albumin Human (Flexbumin 25% Inj) 100 mls @ 60 mls/hr IV.SIG WITH DIALYSIS PRN PRN Reason: hypotension / volume replace Insulin Aspart (Novolog Insulin Correctional Sugar Inj) 0 unit SQ ACHS [facility]; Protocol Lactulose (Lactulose Liq) 30 ml PO DAILY PRN PRN Reason: SEVERE CONSITIPATION Minoxidil (Loniten) 10 mg PO BID [facility] Nifedipine (Procardia Xl) 60 mg PO DAILY [facility] Non-Formulary Medication (Folic Acid [Folic Acid]) 0.4 mg PO DAILY [facility] Ondansetron HCl (Zofran Inj) 4 mg IV.PUSH Q6H PRN PRN Reason: NAUSEA OR VOMITING Oseltamivir Phosphate (Tamiflu) 75 mg PO BID [facility] Stop: 09/05/18 01:00 Pantoprazole Sodium (Protonix) 40 mg PO DAILY@1700 [facility] Pharmacy Profile Note (Vancomycin Consult Pharmacy) 1 each OTHER UNSCH ONE Stop: 08/31/18 10:52 Sennosides (Senokot) 17.2 mg PO Q12H PRN PRN Reason: Moderate Constipation Sodium Chloride (Ns Flush) 2 ml IV.FLUSH BID [facility] Sodium Chloride (Ns Flush) 2 ml IV.FLUSH PRN PRN PRN Reason: FLUSH AFTER USING IV ACCESS Exam Vital signs: Vital Signs 08/31/18 08:40 08/31/18 08:41 08/31/18 09:50 Temperature 98.6 F 98.6 F Pulse Rate 119 H 119 H 114 H Respiratory Rate 22 24 17 Blood Pressure 239/134 H 239/134 H Pulse Oximetry 97 89 L 99 08/31/18 10:00 08/31/18 10:15 08/31/18 10:30 Temperature 98.8 F Pulse Rate 120 H 120 H 116 H Respiratory Rate 30 H 19 17 Blood Pressure 243/132 H 243/136 H 226/129 H Pulse Oximetry 97 96 97 08/31/18 10:45 08/31/18 11:00 Temperature Pulse Rate 118 H 116 H Respiratory Rate 16 16 Blood Pressure 248/140 H 246/138 H Pulse Oximetry 98 98 Intake & Output 08/30/18 08/31/18 08/31/18 18:59 06:59 18:59 Intake Total 100 / 100 Balance 100 / 100 Weight 58.967 kg Intake: IV 100 / 100 Zosyn 4.5 GM Premix 4.5 gm In 100 / 100 100 ml @ 200 mls/hr IV.SIG STAT STA Rx#:[id number] Results - Lab Results 08/31/18 08:40 08/31/18 08:40 Most recent lab results Calcium 10.2 mg/dL (8.5-10.1) H 08/31/18 08:40 Phosphorus 6.1 mg/dL (2.5-4.9) H 08/31/18 08:40 Magnesium 2.5 mg/dL (1.5-2.5) 08/31/18 08:40 Assessment and Plan - Assessment (1) End-stage renal disease on hemodialysis Code(s): N18.6 - End stage renal disease; Z99.2 - Dependence on renal dialysis Status: Acute Plan: End stage renal disease on Hemodialysis on Wednesday, and Wednesday last HD was on Wednesday. Will proceed with dialysis today, 2 K bath, orders have been placed and dialysis contacted. (2) Hypertension Code(s): I10 - Essential (primary) hypertension Status: Acute Plan: elevated. Expect improvement after dialysis. Continue Home medications, PRN available. (3) Insulin dependent diabetes mellitus Code(s): E11.9 - Type 2 diabetes mellitus without complications; Z79.4 - shelter (current) use of insulin Status: Acute Plan: Recommend to maintain blood sugar between 140 mg/dl to 180 mg/dl while hospitalized. (4) Nausea & vomiting Code(s): R11.2 - Nausea with vomiting, unspecified Status: Acute Plan: Zofran PRN. (5) Influenza A Code(s): J10.1 - Influenza due to other identified influenza virus with other respiratory manifestations Status: Acute Plan: Tamiflu will be given. <Tom Elise - Last Filed: 09/01/18 18:44> History of Present Illness Primary Care Provider: No Primary Care Physician [facility] - Medical History Medical History: Medical History (Last Reviewed 08/31/18 @ 08:43 by Anny Hilario MD) Diabetes End stage chronic kidney disease HBP (high blood pressure) Joint pain Renal disease Visual impairment - Surgical History Surgical History: Surgical History (Last Reviewed 08/31/18 @ 08:43 by Anny Hilario MD) Hx of cholecystectomy - Family History Family History: Family History (Last Reviewed 08/31/18 @ 08:43 by Anny Hilario MD) Other No pertinent family history Medications and Allergies Active Medications: Active Medications Acetaminophen (Tylenol) 650 mg PO Q4H PRN PRN Reason: Temp > 100.4/pain Last Admin: 09/01/18 02:53 Dose: 650 mg Acetaminophen (Tylenol) 650 mg PO UNSCH PRN PRN Reason: SEE LABEL COMMENTS Bisacodyl (Dulcolax Supp) 10 mg RECTAL DAILY PRN PRN Reason: SEVERE CONSITIPATION Calcium Acetate (Phoslo) 1,334 mg PO TID [facility] Last Admin: 09/01/18 18:38 Dose: Not Given Clonidine HCl (Catapres) 0.3 mg PO TID [facility] Last Admin: 09/01/18 18:36 Dose: Not Given Clonidine HCl (Catapres) 0.3 mg PO Q6H PRN PRN Reason: SEE LABEL COMMENTS Last Admin: 09/01/18 05:47 Dose: 0.3 mg Clonidine HCl (Catapres) 0.1 mg PO UNSCH PRN PRN Reason: SEE LABEL COMMENTS Dextrose (D50w Vial) 50 ml IV.PUSH UNSCH PRN PRN Reason: PER HYPOGLYCEMIA PROTOCOL Diphenhydramine HCl (Benadryl) 25 mg PO UNSCH PRN PRN Reason: SEE LABEL COMMENTS Folic Acid (Folic Acid) 1 mg PO DAILY [facility] Last Admin: 09/01/18 08:54 Dose: 1 mg Gelatin (Gelfoam 12 Mm/7 Mm Topical) 1 foam TOPICAL PRN PRN PRN Reason: help stop bleeding from site Gentamicin Sulfate (Gentamicin Inj) 20 mg OTHER WITH DIALYSIS PRN PRN Reason: Dwell Gentamycin Lock Last Admin: 08/31/18 15:39 Dose: 20 mg Glucagon (Glucagon Inj) 1 mg OTHER PRN PRN PRN Reason: for Hypoglycemia Protocol Heparin Sodium (Porcine) (Heparin Inj) 8,000 units OTHER WITH DIALYSIS PRN PRN Reason: for machine prime Heparin Sodium (Porcine) (Heparin Inj) 1,000 units OTHER WITH DIALYSIS PRN PRN Reason: Dwell Heparin to Fill Catheter Last Admin: 08/31/18 15:40 Dose: 1,000 units Hydralazine HCl (Apresoline Inj) 10 mg IV.PUSH Q6H PRN PRN Reason: SEE LABEL COMMENTS Hydralazine HCl (Apresoline) 100 mg PO TID [facility] Last Admin: 09/01/18 18:36 Dose: Not Given Hydralazine HCl (Apresoline) 50 mg PO TID [facility] Last Admin: 09/01/18 18:38 Dose: Not Given Albumin Human (Flexbumin 25% Inj) 100 mls @ 60 mls/hr IV.SIG WITH DIALYSIS PRN PRN Reason: hypotension / volume replace Sodium Chloride (Ns Inj) 1,000 mls @ 0 mls/hr OTHER .Q0M PRN PRN Reason: for prime and rinse back Sodium Chloride (Ns Inj) 1,000 mls @ 200 mls/hr OTHER .Q5H PRN PRN Reason: for dialyzer flush PRN Sodium Chloride (Ns Inj) 1,000 mls @ 0 mls/hr IV.CONT .Q0M PRN PRN Reason: hypotension / volume replace Vancomycin HCl 1,000 mg/ (Sodium Chloride) 250 mls @ 250 mls/hr IV.SIG ONCE ONE Stop: 09/02/18 15:59 Piperacillin/Tazobactam/Dextrose (Zosyn 2.25 Gm Premix) 2.25 gm in 50 mls @ 100 mls/hr IV.SIG Q6H [facility] Last Admin: 09/01/18 17:34 Dose: 100 mls/hr Insulin Aspart (Novolog Insulin Correctional Sugar Inj) 0 unit SQ ACHS [facility]; Protocol Last Admin: 09/01/18 12:37 Dose: 8 unit Lactulose (Lactulose Liq) 30 ml PO DAILY PRN PRN Reason: SEVERE CONSITIPATION Mannitol (Mannitol Inj) 12.5 gm IV.PUSH UNSCH PRN PRN Reason: hypotension / volume replace Minoxidil (Loniten) 10 mg PO BID [facility] Last Admin: 09/01/18 08:53 Dose: 10 mg Nifedipine (Procardia Xl) 60 mg PO DAILY [facility] Last Admin: 09/01/18 09:40 Dose: 60 mg Nitroglycerin (Nitrostat Sl) 0.4 mg SL Q5M PRN PRN Reason: CHEST PAIN Ondansetron HCl (Zofran Inj) 4 mg IV.PUSH Q6H PRN PRN Reason: NAUSEA OR VOMITING Ondansetron HCl (Zofran Inj) 4 mg IV.PUSH UNSCH PRN PRN Reason: NAUSEA OR VOMITING Oseltamivir Phosphate (Tamiflu) 30 mg PO DAILY [facility] Stop: 09/05/18 01:00 Last Admin: 09/01/18 08:53 Dose: 30 mg Pantoprazole Sodium (Protonix) 40 mg PO DAILY@1700 [facility] Last Admin: 09/01/18 17:40 Dose: 40 mg Pharmacy Profile Note (Vancomycin Consult Pharmacy) 1 each OTHER [facility] Sennosides (Senokot) 17.2 mg PO Q12H PRN PRN Reason: Moderate Constipation Sodium Chloride (Ns Flush) 2 ml IV.FLUSH BID [facility] Last Admin: 09/01/18 18:36 Dose: 2 ml Sodium Chloride (Ns Flush) 2 ml IV.FLUSH PRN PRN PRN Reason: FLUSH AFTER USING IV ACCESS Sodium Chloride (Ns Flush) 5 ml IV.FLUSH PRN PRN PRN Reason: flush each lumen during HD Exam Vital signs: Vital Signs 08/31/18 19:00 08/31/18 19:30 08/31/18 20:00 Temperature 100.4 F H Pulse Rate 101 H 104 H 104 H Respiratory Rate 16 15 18 Blood Pressure 116/58 L 118/61 123/65 Pulse Oximetry 99 100 100 08/31/18 20:30 08/31/18 21:00 08/31/18 21:02 Temperature Pulse Rate 104 H 105 H Respiratory Rate 20 21 16 Blood Pressure 121/59 L 121/58 L Pulse Oximetry 99 100 08/31/18 21:08 08/31/18 21:11 08/31/18 21:17 Temperature Pulse Rate 104 H 90 Respiratory Rate 33 H Blood Pressure 230/100 H 211/95 H Pulse Oximetry 100 99 100 08/31/18 21:59 08/31/18 22:00 08/31/18 22:56 Temperature Pulse Rate 90 101 H 90 Respiratory Rate 15 18 16 Blood Pressure 204/84 H 101/50 L 220/95 H Pulse Oximetry 99 100 98 08/31/18 23:00 08/31/18 23:19 08/31/18 23:30 Temperature Pulse Rate 107 H 92 H 92 H Respiratory Rate 35 H 25 H 21 Blood Pressure 128/71 195/88 H 201/93 H Pulse Oximetry 100 97 98 08/31/18 23:43 09/01/18 00:00 09/01/18 00:30 Temperature 99.3 F Pulse Rate 109 H 94 H 96 H Respiratory Rate 13 14 13 Blood Pressure 225/101 H 203/91 H 199/91 H Pulse Oximetry 100 96 96 09/01/18 01:00 09/01/18 01:30 09/01/18 02:00 Temperature Pulse Rate 92 H 94 H 112 H Respiratory Rate 15 15 40 H Blood Pressure 184/83 H 188/88 H 164/90 H Pulse Oximetry 96 98 100 09/01/18 02:30 09/01/18 03:00 09/01/18 03:44 Temperature Pulse Rate 92 H 92 H 116 H Respiratory Rate 14 15 12 Blood Pressure 202/93 H 156/91 H 195/82 H Pulse Oximetry 99 100 09/01/18 04:00 09/01/18 04:09 09/01/18 04:24 Temperature Pulse Rate 115 H 90 88 Respiratory Rate 17 12 11 L Blood Pressure 167/92 H 157/73 H 157/72 H Pulse Oximetry 100 96 96 09/01/18 04:30 09/01/18 04:44 09/01/18 05:00 Temperature Pulse Rate 88 86 109 H Respiratory Rate 18 12 15 Blood Pressure 148/84 H 161/68 H 173/92 H Pulse Oximetry 95 95 100 09/01/18 06:00 09/01/18 08:00 09/01/18 10:00 Temperature Pulse Rate 106 H 94 H 97 H Respiratory Rate 13 13 Blood Pressure 159/91 H Pulse Oximetry 100 99 09/01/18 12:00 09/01/18 14:00 09/01/18 16:00 Temperature Pulse Rate 96 H 102 H 101 H Respiratory Rate 13 Blood Pressure Pulse Oximetry Intake & Output 08/31/18 09/01/18 09/01/18 18:59 06:59 18:59 Intake Total 350 / 350 1810 / 1810 Output Total 1999 0 / 0 Balance -1650 / -1650 1810 / 1810 Weight 58.967 kg 58.967 kg Intake: IV 350 / 350 300 / 300 Zosyn 4.5 GM Premix 4.5 gm In 100 / 100 300 / 300 100 ml @ 200 mls/hr IV.SIG Q6H [facility] Rx#:[id number] Vancomycin Inj 1,000 MG In NS 250 / 250 Inj 250 ML @ 250 mls/hr IV.SIG STAT STA Rx#:[id number] Oral 1160 / 1160 Other 350 / 350 Output: Urine 0 / 0 Hemodialysis Amount 1999 Other: Other Intake Source Saline Solution Results - Lab Results 09/01/18 05:58 09/01/18 05:58 Most recent lab results Calcium 8.7 mg/dL (8.5-10.1) D 09/01/18 05:58 Phosphorus 6.1 mg/dL (2.5-4.9) H 08/31/18 08:40 Magnesium 2.5 mg/dL (1.5-2.5) 08/31/18 08:40 Assessment and Plan - Assessment (1) End-stage renal disease on hemodialysis Code(s): N18.6 - End stage renal disease; Z99.2 - Dependence on renal dialysis Status: Acute Plan: Patient seen and examined, agree with above. Seen during HD, has shivering, afebrile now. Continue antibiotics, and follow the cultures. (2) Hypertension Code(s): I10 - Essential (primary) hypertension Status: Acute (3) Insulin dependent diabetes mellitus Code(s): E11.9 - Type 2 diabetes mellitus without complications; Z79.4 - receiver stocker (current) use of insulin Status: Acute (4) Nausea & vomiting Code(s): R11.2 - Nausea with vomiting, unspecified Status: Acute (5) Influenza A Code(s): J10.1 - Influenza due to other identified influenza virus with other respiratory manifestations Status: Acute
[2018-08-31] MEDS: Insulin NovoLOG Aspart Correctional Sugar Inj SQ SCH ×3 (12:00→21:11)
[2018-08-31] MEDS ORDERED: Vancomycin Consult Pharmacy OTHER SCH (13:00)
--- NOTE | 2018-08-31 13:41 | P.HPIM ---
History of Present Illness Primary Care Physician: No Primary Care Physician Chief Complaint: Nausea and vomiting History of Present Illness: 28-year-old male with history of end-stage renal disease on hemodialysis, insulin requiring diabetes mellitus, hypertension and visual impairment. Patient was sent from the dialysis clinic because of GI symptoms for the past 24 hours. He complains of nausea, vomiting, productive cough of whitish phlegm, chills and weakness. States last time he had similar symptoms he was diagnosed with pneumonia. Chest x-ray independent reviewed by me with changes suggestive of left base pneumonia. He received IV vancomycin and Zosyn in the ED. He also tested positive for influenza A and was given Tamiflu. He also has uncontrolled hypertension blood pressure of 224/100. He states he was not able to keep his medications down. He denies headache, dizziness and chest pain. Case discussed with nephrology. Diagnosis (1) End-stage renal disease on hemodialysis: (2) Hypertension: (3) Insulin dependent diabetes mellitus: (4) Nausea & vomiting: (5) Influenza A: Inpatient Certification Inpatient Certification: I certify that the inpatient services were ordered in accordance with Medicare regulations governing the order. This includes certification that hospital inpatient services are reasonable and necessary and in the case of services not specified as inpatient-only under 42 CFR 419.22(n), that they are appropriately provided as inpatient services in accordance to with the 2-midnight benchmark under 43 CFR 412.3(e) Estimated Total Length of Stay (Days): 2 Plans for Post Hospital Care: Not yet determined Review of Systems Review of Systems: all other systems reviewed are negative [facility] Medical History Medical History Diabetes (Acute) End stage chronic kidney disease (Acute) HBP (high blood pressure) (Acute) Joint pain (Acute) Renal disease (Acute) Visual impairment (Acute) Surgical History Surgical History Hx of cholecystectomy (Acute) Family History Family History Other Diabetes mellitus Social History Social History Substance History: No History of Abuse Second Hand Smoke Exposure: No Smoking Status: Never smoker How Often Do You Have a Drink Containing Alcohol: Never Recent Travel in [place] within the Last 8 Weeks: No Recent Out of Country Travel within the Last 8 Weeks: No Immunization History Tetanus Immunization: <5 Years Medications and Allergies Allergies Allergy/AdvReac Type Severity Reaction Status Date / Time No Known Allergies Allergy Verified 08/31/18 08:50 Home Medications Medication Instructions Recorded Confirmed Type clonidine HCl 0.3 mg PO TID 06/28/18 08/31/18 History folic acid 0.4 mg PO DAILY 06/28/18 08/31/18 History hydralazine 100 mg PO TID 06/28/18 08/31/18 History minoxidil 10 mg PO BID 06/28/18 08/31/18 History Active Medications: Active Medications Acetaminophen (Tylenol) 650 mg PO Q4H PRN PRN Reason: Temp > 100.4 Acetaminophen (Tylenol) 650 mg PO UNSCH PRN PRN Reason: SEE LABEL COMMENTS Bisacodyl (Dulcolax Supp) 10 mg RECTAL DAILY PRN PRN Reason: SEVERE CONSITIPATION Calcium Acetate (Phoslo) 1,334 mg PO TID DENEEN Clonidine HCl (Catapres) 0.3 mg PO TID DENEEN Clonidine HCl (Catapres) 0.3 mg PO Q6H PRN PRN Reason: SEE LABEL COMMENTS Clonidine HCl (Catapres) 0.1 mg PO UNSCH PRN PRN Reason: SEE LABEL COMMENTS Dextrose (D50w Vial) 50 ml IV.PUSH UNSCH PRN PRN Reason: PER HYPOGLYCEMIA PROTOCOL Diphenhydramine HCl (Benadryl) 25 mg PO UNSCH PRN PRN Reason: SEE LABEL COMMENTS Folic Acid (Folic Acid) 1 mg PO DAILY DENEEN Gelatin (Gelfoam 12 Mm/7 Mm Topical) 1 foam TOPICAL PRN PRN PRN Reason: help stop bleeding from site Gentamicin Sulfate (Gentamicin Inj) 20 mg OTHER WITH DIALYSIS PRN PRN Reason: Dwell Gentamycin Lock Glucagon (Glucagon Inj) 1 mg OTHER PRN PRN PRN Reason: for Hypoglycemia Protocol Heparin Sodium (Porcine) (Heparin Inj) 8,000 units OTHER WITH DIALYSIS PRN PRN Reason: for machine prime Heparin Sodium (Porcine) (Heparin Inj) 1,000 units OTHER WITH DIALYSIS PRN PRN Reason: Dwell Heparin to Fill Catheter Hydralazine HCl (Apresoline Inj) 10 mg IV.PUSH Q6H PRN PRN Reason: SEE LABEL COMMENTS Hydralazine HCl (Apresoline) 100 mg PO TID [facility] Piperacillin/Tazobactam/Dextrose (Zosyn 4.5 Gm Premix) 4.5 gm in 100 mls @ 200 mls/hr IV.SIG Q6H [facility] Albumin Human (Flexbumin 25% Inj) 100 mls @ 60 mls/hr IV.SIG WITH DIALYSIS PRN PRN Reason: hypotension / volume replace Sodium Chloride (Ns Inj) 1,000 mls @ 0 mls/hr OTHER .Q0M PRN PRN Reason: for prime and rinse back Sodium Chloride (Ns Inj) 1,000 mls @ 200 mls/hr OTHER .Q5H PRN PRN Reason: for dialyzer flush PRN Sodium Chloride (Ns Inj) 1,000 mls @ 0 mls/hr IV.CONT .Q0M PRN PRN Reason: hypotension / volume replace Insulin Aspart (Novolog Insulin Correctional Sugar Inj) 0 unit SQ ACHS [facility]; Protocol Lactulose (Lactulose Liq) 30 ml PO DAILY PRN PRN Reason: SEVERE CONSITIPATION Mannitol (Mannitol Inj) 12.5 gm IV.PUSH UNSCH PRN PRN Reason: hypotension / volume replace Minoxidil (Loniten) 10 mg PO BID [facility] Nifedipine (Procardia Xl) 60 mg PO DAILY [facility] Nitroglycerin (Nitrostat Sl) 0.4 mg SL Q5M PRN PRN Reason: CHEST PAIN Ondansetron HCl (Zofran Inj) 4 mg IV.PUSH Q6H PRN PRN Reason: NAUSEA OR VOMITING Ondansetron HCl (Zofran Inj) 4 mg IV.PUSH UNSCH PRN PRN Reason: NAUSEA OR VOMITING Oseltamivir Phosphate (Tamiflu) 75 mg PO BID [facility] Stop: 09/05/18 01:00 Pantoprazole Sodium (Protonix) 40 mg PO DAILY@1700 [facility] Pharmacy Profile Note (Vancomycin Consult Pharmacy) 1 each OTHER UNSCH [facility] Sennosides (Senokot) 17.2 mg PO Q12H PRN PRN Reason: Moderate Constipation Sodium Chloride (Ns Flush) 2 ml IV.FLUSH BID [facility] Sodium Chloride (Ns Flush) 2 ml IV.FLUSH PRN PRN PRN Reason: FLUSH AFTER USING IV ACCESS Sodium Chloride (Ns Flush) 5 ml IV.FLUSH PRN PRN PRN Reason: flush each lumen during HD Physical Exam Vital signs: Last Vital Signs Temp 98.8 F 08/31/18 10:15 Pulse 120 H 08/31/18 11:30 Resp 29 H 08/31/18 11:30 BP 228/139 H 08/31/18 11:30 Pulse Ox 98 08/31/18 11:30 Intake & Output 08/29/18 08/30/18 08/31/18 09/01/18 06:59 06:59 06:59 06:59 Intake Total 350 / 350 Balance 350 / 350 Weight 58.967 kg Narrative: GENERAL: Well-developed and well-nourished who is in distress secondary to nausea and chills SKIN: Warm and dry. HEAD: Atraumatic. Normocephalic. EYES: Pupils equal and round. No scleral icterus. No injection or drainage. ENT: No nasal bleeding or discharge. Mucous membranes pink and moist. NECK: Trachea midline. No JVD. CARDIOVASCULAR: Tachycardic RESPIRATORY: No accessory muscle use. Clear to auscultation. Breath sounds equal bilaterally. GASTROINTESTINAL: Abdomen soft, non-tender, nondistended. MUSCULOSKELETAL: Extremities without clubbing, cyanosis, or edema. No obvious deformities. NEUROLOGICAL: Awake and alert. No obvious cranial nerve deficits. Motor grossly within normal limits. Five out of 5 muscle strength in the arms and legs. Normal speech. PSYCHIATRIC: Appropriate mood and affect; insight and judgment normal. Results Labs CBC & Chem 7: 08/31/18 08:40 08/31/18 08:40 Imaging Impressions Chest X-Ray 08/31/18 08:38 CONCLUSION: Minimal consolidative changes left base suspicious for inflammatory process. Mild interstitial edema. Caprini VTE Risk Assessment Caprini VTE Risk Assessment: No/Low Risk (score <= 1) Caprini Risk Assessment Model: Point Value = 1 Point Value = 2 Point Value = 3 Point Value = 5 Age 41-60 Minor surgery BMI > 25 kg/m2 Swollen legs Varicose veins or History of unexplained or recurrent spontaneous Oral contraceptives or hormone replacement Sepsis (< 1 month) Serious lung disease, including pneumonia (< 1 month) Abnormal pulmonary function Acute myocardial infarction Congestive heart failure (< 1 month) History of inflammatory bowel disease Medical patient at bed rest Age 61-74 Arthroscopic surgery Major open surgery (> 45 min) Laparoscopic surgery (> 45 min) Malignancy Confined to bed (> 72 hours) Immobilizing plaster cast Central venous access Age >= 75 History of VTE Family history of VTE Factor V Leiden Prothrombin [id number] Lupus anticoagulant Anticardiolipin antibodies Elevated serum homocysteine Heparin-induced thrombocytopenia Other congenital or acquired thrombophilia Stroke (< 1 month) Elective arthroplasty Hip, pelvis, or leg fracture Acute spinal cord injury (< 1 month) Prophylaxis Regimen: Total Risk Factor Score Risk Level Prophylaxis Regimen 0-1 Low Early ambulation 2 Moderate Order ONE of the following: *Sequential Compression Device (SCD) *Heparin 5000 units SQ BID 3-4 Higher Order ONE of the following medications: *Heparin 5000 units SQ TID *Enoxaparin/Lovenox 40 mg SQ daily (WT < 150 kg, CrCl > 30 mL/min) *Enoxaparin/Lovenox 30 mg SQ daily (WT < 150 kg, CrCl > 10-29 mL/min) *Enoxaparin/Lovenox 30 mg SQ BID (WT < 150 kg, CrCl > 30 mL/min) AND/OR *Sequential Compression Device (SCD) 5 or more Highest Order ONE of the following medications: *Heparin 5000 units SQ TID (Preferred with Epidurals) *Enoxaparin/Lovenox 40 mg SQ daily (WT < 150 kg, CrCl > 30 mL/min) *Enoxaparin/Lovenox 30 mg SQ daily (WT < 150 kg, CrCl > 10-29 mL/min) *Enoxaparin/Lovenox 30 mg SQ BID (WT < 150 kg, CrCl > 30 mL/min) AND *Sequential Compression Device (SCD) Assessment and Plan (1) End-stage renal disease on hemodialysis: Code(s): N18.6 - End stage renal disease; Z99.2 - Dependence on renal dialysis Status: Acute (2) Hypertension: Code(s): I10 - Essential (primary) hypertension Status: Acute (3) Insulin dependent diabetes mellitus: Code(s): E11.9 - Type 2 diabetes mellitus without complications; Z79.4 - FPC ( current) use of insulin Status: Acute (4) Nausea & vomiting: Code(s): R11.2 - Nausea with vomiting, unspecified Status: Acute (5) Influenza A: Code(s): J10.1 - Influenza due to other identified influenza virus with other respiratory manifestations Status: Acute Plan 28-year-old male with history of end-stage renal disease on hemodialysis, insulin requiring diabetes mellitus, hypertension and visual impairment. Patient was sent from the dialysis clinic because of GI and respiratory symptoms for the past 24 hours. Chest x-ray with changes suggestive of left base pneumonia. He also tested positive for influenza A. He also has uncontrolled hypertension blood pressure of 224/100. He states he was not able to keep his medications down. HAP with sepsis. He he has influenza A. Continue IV vancomycin, Zosyn and Tamiflu (cleared by nephrology) follow-up blood cultures and obtain sputum, Legionella and pneumococcal urinary antigen. Severely uncontrolled hypertension secondary to patient not able to keep his medicines down. Restart home medications. As needed IV hydralazine and clonidine. Expect improvement after hemodialysis today Hyperkalemia potassium of 5.2. For hemodialysis Elevated AST and ALT secondary to sepsis. Will monitor Diabetes mellitus. He is a brittle diabetic. Will hold long-acting insulin for now secondary to nausea and vomiting. Hypoglycemia protocol. Monitor fingersticks with sliding scale coverage DVT prophylaxis with SCD and early ambulation Patient will be admitted to ICU because of severely uncontrolled hypertension may need intravenous antihypertensives _ (1) Hypertension Qualifiers: Hypertension type: (2) Nausea & vomiting Qualifiers: Vomiting type: Vomiting Intractability:
[2018-08-31] MEDS: Calcium Acetate 667 MG Capsule PO SCH ×2 (14:34→17:57)
[2018-08-31] MEDS: Piperacil/Tazo 4.5 GM Premix 4.5 GM/100 ML BAG IV.SIG SCH ×2 (17:10→23:38)
[2018-08-31] MEDS: Acetaminophen 325 MG Tablet PO PRN (20:31)
[2018-08-31 20:47] LABS: Amorphous Sediment,Urine Rare /hpf; Bilirubin,Urine Negative (Negative); Clarity,Urine Hazy (Clear); Color,Urine Amber (Yellw/Straw); Glucose,Urine (UA) 150 mg/dL (Negative); Leukocyte Esterase,Urine Negative (Negative); Mucus,Urine Few /lpf (Occasional); Nitrite,Urine Negative (Negative); Specific Gravity,Urine 1.022 (1.002-1.035); Squamous Epithelial Cell,Urine <1 /hpf (0-5)
[2018-08-31] MEDS ORDERED: Oseltamivir Phosphate 75 MG Capsule PO SCH (21:00)
[2018-08-31] MEDS: Minoxidil 10 MG Tablet PO SCH (21:01)
[2018-09-01] MEDS: Acetaminophen 325 MG Tablet PO PRN (02:53)
[2018-09-01] MEDS: Piperacil/Tazo 4.5 GM Premix 4.5 GM/100 ML BAG IV.SIG SCH ×2 (05:05→20:38)
[2018-09-01 07:12] LABS: Baso # (Auto) 0.1 th/mm3 (0.0-0.2); Baso % (Auto) 0.6 % (0.0-2.0); Eos % (Auto) 0.1 % (0.0-4.0); Hematocrit 33.1 % (39.0-51.0); Hemoglobin 11.3 gm/dL (13.0-17.0); Lymph # (Auto) 1.2 th/mm3 (1.0-4.8); Lymph % (Auto) 7.2 % (9.0-44.0); Mean Corpuscular HGB Conc 34.3 % (32.0-36.0); Mean Corpuscular Hemoglobin 26.2 pg (27.0-34.0); Mean Corpuscular Volume 76.4 fL (80.0-100.0); Mean Platelet Volume 8.9 fL (7.0-11.0); Mono # (Auto) 1.3 th/mm3 (0.0-0.9); Mono % (Auto) 7.4 % (0.0-8.0); Neut # (Auto) 14.7 th/mm3 (1.8-7.7); Neut % (Auto) 84.7 % (16.0-70.0); Platelet Count 232 th/mm3 (150-450); Red Blood Count 4.33 mil/mm3 (4.50-5.90); Red Cell Distribution Width 32.3 % (11.6-17.2); White Blood Count 17.3 th/mm3 (4.0-11.0)
[2018-09-01 08:00] LABS: Alanine Aminotransferase 64 U/L (12-78); Albumin 3.3 g/dL (3.4-5.0); Alkaline Phosphatase 177 U/L (45-117); Anion Gap 14 meq/L (5-15); Aspartate Aminotransferase 43 U/L (15-37); Blood Urea Nitrogen 53 mg/dL (7-18); Calcium 8.7 mg/dL (8.5-10.1); Carbon Dioxide 26.5 meq/L (21.0-32.0); Chloride 94 meq/L (98-107); Glomerular Filtration Rate 12 mL/min (>89); Glucose,Random 172 mg/dL (74-106); Potassium 4.6 meq/L (3.5-5.1); Sodium 134 meq/L (136-145); Total Protein 8.1 g/dL (6.4-8.2); Vancomycin,Random 17.5 Comment
[2018-09-01 08:22] LABS: Lymphocytes 5 % (9-44); Monocytes 6 % (0-8); Myelocytes 1 % (0-0)
[2018-09-01 08:23] LABS: Ovalocytes 3+; Platelet Estimate Normal (Normal); Platelet Morphology Normal (Normal)
[2018-09-01 08:24] LABS: Tear Drop Cells 1+
[2018-09-01] MEDS: Minoxidil 10 MG Tablet PO SCH ×2 (08:53→21:06)
[2018-09-01] MEDS: Calcium Acetate 667 MG Capsule PO SCH ×3 (08:53→18:38)
[2018-09-01] MEDS: Oseltamivir Phosphate 30 MG Capsule PO SCH (08:53)
[2018-09-01] MEDS: Folic Acid 1 MG Tablet PO SCH (08:54)
--- NOTE | 2018-09-01 09:25 | P.PNIM ---
Subjective Interval history: Patient planes of a cough. He says his nausea and vomiting have improved. Physical Exam Vital signs: Vital Signs 08/31/18 09:50 08/31/18 10:00 08/31/18 10:15 Temperature 98.8 F Pulse Rate 114 H 120 H 120 H Respiratory Rate 17 30 H 19 Blood Pressure 243/132 H 243/136 H Pulse Oximetry 99 97 96 08/31/18 10:30 08/31/18 10:45 08/31/18 11:00 Temperature Pulse Rate 116 H 118 H 116 H Respiratory Rate 17 16 16 Blood Pressure 226/129 H 248/140 H 246/138 H Pulse Oximetry 97 98 98 08/31/18 11:15 08/31/18 11:30 08/31/18 11:45 Temperature Pulse Rate 118 H 120 H 124 H Respiratory Rate 16 29 H 31 H Blood Pressure 231/129 H 228/139 H 215/108 H Pulse Oximetry 98 98 98 08/31/18 12:00 08/31/18 12:15 08/31/18 12:30 Temperature Pulse Rate 114 H 114 H 112 H Respiratory Rate 17 23 33 H Blood Pressure 258/133 H 203/108 H 257/145 H Pulse Oximetry 97 96 98 08/31/18 12:33 08/31/18 15:00 08/31/18 15:02 Temperature Pulse Rate 116 H 72 Respiratory Rate Blood Pressure 139/75 Pulse Oximetry 97 98 08/31/18 17:05 08/31/18 17:35 08/31/18 17:57 Temperature Pulse Rate 102 H 103 H Respiratory Rate 16 30 H Blood Pressure 133/76 Pulse Oximetry 100 99 100 08/31/18 18:00 08/31/18 18:30 08/31/18 19:00 Temperature Pulse Rate 105 H 103 H 101 H Respiratory Rate 19 20 16 Blood Pressure 131/77 131/73 116/58 L Pulse Oximetry 100 100 99 08/31/18 19:30 08/31/18 20:00 08/31/18 20:30 Temperature 100.4 F H Pulse Rate 104 H 104 H 104 H Respiratory Rate 15 18 20 Blood Pressure 118/61 123/65 121/59 L Pulse Oximetry 100 100 99 08/31/18 21:00 08/31/18 21:02 08/31/18 21:08 Temperature Pulse Rate 105 H 104 H Respiratory Rate 21 16 33 H Blood Pressure 121/58 L 230/100 H Pulse Oximetry 100 100 08/31/18 21:11 08/31/18 21:17 08/31/18 21:59 Temperature Pulse Rate 90 90 Respiratory Rate 15 Blood Pressure 211/95 H 204/84 H Pulse Oximetry 99 100 99 08/31/18 22:00 08/31/18 22:56 08/31/18 23:00 Temperature Pulse Rate 101 H 90 107 H Respiratory Rate 18 16 35 H Blood Pressure 101/50 L 220/95 H 128/71 Pulse Oximetry 100 98 100 08/31/18 23:19 08/31/18 23:30 08/31/18 23:43 Temperature Pulse Rate 92 H 92 H 109 H Respiratory Rate 25 H 21 13 Blood Pressure 195/88 H 201/93 H 225/101 H Pulse Oximetry 97 98 100 09/01/18 00:00 09/01/18 00:30 09/01/18 01:00 Temperature 99.3 F Pulse Rate 94 H 96 H 92 H Respiratory Rate 14 13 15 Blood Pressure 203/91 H 199/91 H 184/83 H Pulse Oximetry 96 96 96 09/01/18 01:30 09/01/18 02:00 09/01/18 02:30 Temperature Pulse Rate 94 H 112 H 92 H Respiratory Rate 15 40 H 14 Blood Pressure 188/88 H 164/90 H 202/93 H Pulse Oximetry 98 100 99 09/01/18 03:00 09/01/18 03:44 09/01/18 04:00 Temperature Pulse Rate 92 H 116 H 115 H Respiratory Rate 15 12 17 Blood Pressure 156/91 H 195/82 H 167/92 H Pulse Oximetry 100 100 09/01/18 04:09 09/01/18 04:24 09/01/18 04:30 Temperature Pulse Rate 90 88 88 Respiratory Rate 12 11 L 18 Blood Pressure 157/73 H 157/72 H 148/84 H Pulse Oximetry 96 96 95 09/01/18 04:44 09/01/18 05:00 09/01/18 06:00 Temperature Pulse Rate 86 109 H 106 H Respiratory Rate 12 15 13 Blood Pressure 161/68 H 173/92 H 159/91 H Pulse Oximetry 95 100 100 Intake & Output 08/31/18 09/01/18 09/01/18 18:59 06:59 18:59 Intake Total 350 / 350 1810 / 1810 Output Total 1999 0 / 0 Balance -1650 / -1650 1809 Weight 58.967 kg 58.967 kg Intake: IV 350 / 350 300 / 300 Zosyn 4.5 GM Premix 4.5 gm In 100 / 100 300 / 300 100 ml @ 200 mls/hr IV.SIG Q6H DENEEN Rx#:[id number] Vancomycin Inj 1,000 MG In NS 250 / 250 Inj 250 ML @ 250 mls/hr IV.SIG STAT STA Rx#:[id number] Oral 1160 / 1160 Other 350 / 350 Output: Urine 0 / 0 Hemodialysis Amount 1999 Other: Other Intake Source Saline Solution Narrative: General patient complains of a cough. HEENT extraocular movements are intact, clear oropharyngeal mucosa Cardiovascular S1-S2 audible Respiratory minimal rhonchi bilaterally Abdomen soft, nontender, nondistended, normal bowel sounds Extremities no edema Neuro patient moves all 4 extremities, sensation is intact bilaterally Results - Labs CBC & Chem 7: 09/01/18 05:58 09/01/18 05:58 Laboratory Results - last 24 hr 08/31/18 08/31/18 08/31/18 08:40 08:40 08:40 WBC 20.6 H RBC 4.71 Hgb 12.3 L Hct 36.4 L MCV 77.3 L MCH 26.0 L MCHC 33.7 RDW 30.1 H Plt Count 272 MPV 8.5 Prelim Diff (Auto) Slide review pending Neut % (Auto) 91.4 H Lymph % (Auto) 3.1 L [place] % (Auto) 5.0 Eos % (Auto) 0.0 Baso % (Auto) 0.5 Neut # (Auto) 18.8 H Lymph # (Auto) 0.6 L [place] # (Auto) 1.0 H Eos # (Auto) 0.0 Baso # (Auto) 0.1 WBC Differential . Diff Scan Auto diff confirmed Seg Neuts % (Manual) Band Neuts % (Manual) Lymphocytes % (Manual) Monocytes % (Manual) Basophils % (Manual) Myelocytes % (Man) Abs Neuts (Manual) Differential Comment . Platelet Estimate Normal Platelet Morphology Normal Dimorphic RBCs Present H Tear Drop Cells 1+ H Ovalocytes 3+ H Acanthocytes (Spur) 1+ H Keratocytes PT 12.0 H INR 1.2 APTT 28.7 Sodium 139 Potassium 5.2 H Chloride 100 Carbon Dioxide 21.1 Anion Gap 18 H BUN 85 H Creatinine 10.43 H* Estimated GFR 7 L POC Glucose Random Glucose 179 H Lactic Acid Calcium 10.2 H Phosphorus 6.1 H Magnesium 2.5 Total Bilirubin 2.0 H AST 66 H ALT 98 H Alkaline Phosphatase 234 H Total Creatine Kinase 330 H CK-MB (CK-2) 21.4 H CK-MB (CK-2) % 6.5 H* Troponin I 0.18 H Total Protein 9.9 H Albumin 4.5 Lipase 71 L Urine Color Urine Clarity Urine pH Ur Specific [place] Urine Protein Urine Glucose (UA) Urine Ketones Urine Occult Blood Urine Nitrate Urine Bilirubin Urine Urobilinogen Ur Leukocyte Esterase Urine RBC Urine WBC Ur Squamous Epith Cells Amorphous Sediment Urine Mucus Micro UA Comment Ur Microscopic Review Urine Culture Comments Nasal Screen MRSA (PCR) Random Vancomycin 08/31/18 08/31/18 08/31/18 08:40 16:10 17:56 WBC RBC Hgb Hct MCV MCH MCHC RDW Plt Count MPV Prelim Diff (Auto) Neut % (Auto) Lymph % (Auto) [place] % (Auto) Eos % (Auto) Baso % (Auto) Neut # (Auto) Lymph # (Auto) [place] # (Auto) Eos # (Auto) Baso # (Auto) WBC Differential Diff Scan Seg Neuts % (Manual) Band Neuts % (Manual) Lymphocytes % (Manual) Monocytes % (Manual) Basophils % (Manual) Myelocytes % (Man) Abs Neuts (Manual) Differential Comment Platelet Estimate Platelet Morphology Dimorphic RBCs Tear Drop Cells Ovalocytes Acanthocytes (Spur) Keratocytes PT INR APTT Sodium Potassium Chloride Carbon Dioxide Anion Gap BUN Creatinine Estimated GFR POC Glucose 86 Random Glucose Lactic Acid 2.0 Calcium Phosphorus Magnesium Total Bilirubin AST ALT Alkaline Phosphatase Total Creatine Kinase CK-MB (CK-2) CK-MB (CK-2) % Troponin I Total Protein Albumin Lipase Urine Color Urine Clarity Urine pH Ur Specific [place] Urine Protein Urine Glucose (UA) Urine Ketones Urine Occult Blood Urine Nitrate Urine Bilirubin Urine Urobilinogen Ur Leukocyte Esterase Urine RBC Urine WBC Ur Squamous Epith Cells Amorphous Sediment Urine Mucus Micro UA Comment Ur Microscopic Review Urine Culture Comments Nasal Screen MRSA (PCR) Not detected Random Vancomycin 08/31/18 08/31/18 09/01/18 20:20 21:00 05:58 WBC 17.3 H RBC 4.33 L Hgb 11.3 L Hct 33.1 L MCV 76.4 L MCH 26.2 L MCHC 34.3 RDW 32.3 H Plt Count 232 MPV 8.9 Prelim Diff (Auto) Slide review pending Neut % (Auto) 84.7 H Lymph % (Auto) 7.2 L [place] % (Auto) 7.4 Eos % (Auto) 0.1 Baso % (Auto) 0.6 Neut # (Auto) 14.7 H Lymph # (Auto) 1.2 [place] # (Auto) 1.3 H Eos # (Auto) 0.0 Baso # (Auto) 0.1 WBC Differential Manual diff final Diff Scan Seg Neuts % (Manual) 86 H Band Neuts % (Manual) 1 Lymphocytes % (Manual) 5 L Monocytes % (Manual) 6 Basophils % (Manual) 1 Myelocytes % (Man) 1 H Abs Neuts (Manual) 15.2 H Differential Comment . Platelet Estimate Normal Platelet Morphology Normal Dimorphic RBCs Tear Drop Cells 1+ H Ovalocytes 3+ H Acanthocytes (Spur) Keratocytes Occ H PT INR APTT Sodium Potassium Chloride Carbon Dioxide Anion Gap BUN Creatinine Estimated GFR POC Glucose 217 H Random Glucose Lactic Acid Calcium Phosphorus Magnesium Total Bilirubin AST ALT Alkaline Phosphatase Total Creatine Kinase CK-MB (CK-2) CK-MB (CK-2) % Troponin I Total Protein Albumin Lipase Urine Color [place] Urine Clarity Hazy H Urine pH 6.0 Ur Specific [place] 1.022 Urine Protein 500 or greater Urine Glucose (UA) 150 H Urine Ketones Negative Urine Occult Blood Small H Urine Nitrate Negative Urine Bilirubin Negative Urine Urobilinogen Less than 2 Ur Leukocyte Esterase Negative Urine RBC 2 Urine WBC 5 Ur Squamous Epith Cells <1 Amorphous Sediment Rare H Urine Mucus Few H Micro UA Comment Culture not ind Ur Microscopic Review Not Reportable Urine Culture Comments Culture not ind Nasal Screen MRSA (PCR) Random Vancomycin 09/01/18 05:58 WBC RBC Hgb Hct MCV MCH MCHC RDW Plt Count MPV Prelim Diff (Auto) Neut % (Auto) Lymph % (Auto) [place] % (Auto) Eos % (Auto) Baso % (Auto) Neut # (Auto) Lymph # (Auto) [place] # (Auto) Eos # (Auto) Baso # (Auto) WBC Differential Diff Scan Seg Neuts % (Manual) Band Neuts % (Manual) Lymphocytes % (Manual) Monocytes % (Manual) Basophils % (Manual) Myelocytes % (Man) Abs Neuts (Manual) Differential Comment Platelet Estimate Platelet Morphology Dimorphic RBCs Tear Drop Cells Ovalocytes Acanthocytes (Spur) Keratocytes PT INR APTT Sodium 134 L Potassium 4.6 Chloride 94 L Carbon Dioxide 26.5 Anion Gap 14 BUN 53 H Creatinine 6.94 H Estimated GFR 12 L POC Glucose Random Glucose 172 H Lactic Acid Calcium 8.7 D Phosphorus Magnesium Total Bilirubin 2.4 H AST 43 H ALT 64 Alkaline Phosphatase 177 H Total Creatine Kinase CK-MB (CK-2) CK-MB (CK-2) % Troponin I Total Protein 8.1 D Albumin 3.3 L D Lipase Urine Color Urine Clarity Urine pH Ur Specific [place] Urine Protein Urine Glucose (UA) Urine Ketones Urine Occult Blood Urine Nitrate Urine Bilirubin Urine Urobilinogen Ur Leukocyte Esterase Urine RBC Urine WBC Ur Squamous Epith Cells Amorphous Sediment Urine Mucus Micro UA Comment Ur Microscopic Review Urine Culture Comments Nasal Screen MRSA (PCR) Random Vancomycin 17.5 Microbiology 08/31/18 20:20 Urine - Clean Catch Urine Legionella Antigen - Final Presumptive negative for Legionella pneumophila serogroup 1 antigen in urine, suggesting no recent or recurrent infection. Infection due to Legionella cannot be ruled out since other serogroups and species may cause disease, antigen may not be present in urine in early infection, and the level of antigen present in the urine may be below the detection limit of the test. 08/31/18 09:50 Nasal Wash Influenza Types A,B Antigen - Final Positive for Flu A Antigen - Imaging Impressions Chest X-Ray 08/31/18 08:38 CONCLUSION: Minimal consolidative changes left base suspicious for inflammatory process. Mild interstitial edema. Assessment and Plan - Assessment (1) End-stage renal disease on hemodialysis Code(s): N18.6 - End stage renal disease; Z99.2 - Dependence on renal dialysis Status: Acute (2) Hypertension Code(s): I10 - Essential (primary) hypertension Status: Acute (3) Insulin dependent diabetes mellitus Code(s): E11.9 - Type 2 diabetes mellitus without complications; Z79.4 - halfway (current) use of insulin Status: Acute (4) Nausea & vomiting Code(s): R11.2 - Nausea with vomiting, unspecified Status: Acute (5) Influenza A Code(s): J10.1 - Influenza due to other identified influenza virus with other respiratory manifestations Status: Acute - Plan This patient is a 28-year-old male with a diagnosis of end-stage renal disease on hemodialysis Wednesday and Wednesday, insulin-dependent diabetes, hypertension, and visual impairment. The patient was sent to our emergency department from the hemodialysis clinic with complaints of nausea and vomiting. In the emergency department the patient was evaluated and found to be febrile , he also had a significant leukocytosis, was tachycardic, and had a significantly elevated blood pressure. He was admitted to the intensive care unit for hypertensive crisis and found to be positive for influenza. 1. Sepsis secondary to influenza and community acquired pneumonia 2. Acute hypoxic restaurant failure secondary to #1 The patient was found to be positive for influenza, chest x-ray shows a questionable pneumonia. WBC count elevated, patient was febrile in the emergency department. No fevers overnight, patient continues to have a cough. Patient has been placed in isolation for the flu, continue Tamiflu. Patient currently on 2 L supplement oxygen, will continue to wean the patient off supplemental O2. Continue breathing treatments as needed. Keep O2 saturations above 92%. Follow-up a.m. labs. 3. Uncontrolled hypertension Patient was having nausea and vomiting over the past few days prior to admission. He was unable to tolerate his p.o. medications likely leading to the accelerated hypertension. His nausea and vomiting has improved. We will continue to monitor his blood pressure closely. We will adjust his blood pressure medications as needed. Current systolic blood pressures in the 140s. 4. End-stage renal disease on hemodialysis Patient received hemodialysis yesterday. His web site developer is Dr. Elise. 5. Insulin dependent diabetes. Blood sugars currently have been running around 170. We will continue monitor his blood sugars closely and adjust his diabetes regimen as needed. No pharmacal therapy for DVT prophylaxis. The patient is ambulatory.
[2018-09-01] MEDS: Insulin NovoLOG Aspart Correctional Sugar Inj SQ SCH ×4 (09:39→22:00)
--- NOTE | 2018-09-01 16:04 | P.PNNP ---
Subjective Interval history: Patient feeling better today. Denies any shortness of breath, chest pain, vomiting, or diarrhea. Patient reports some nausea. <Ariadna Fraire - Last Filed: 09/01/18 15:53> Physical Exam Vital signs: Vital Signs 08/31/18 17:05 08/31/18 17:35 08/31/18 17:57 Temperature Pulse Rate 102 H 103 H Respiratory Rate 16 30 H Blood Pressure 133/76 Pulse Oximetry 100 99 100 08/31/18 18:00 08/31/18 18:30 08/31/18 19:00 Temperature Pulse Rate 105 H 103 H 101 H Respiratory Rate 19 20 16 Blood Pressure 131/77 131/73 116/58 L Pulse Oximetry 100 100 99 08/31/18 19:30 08/31/18 20:00 08/31/18 20:30 Temperature 100.4 F H Pulse Rate 104 H 104 H 104 H Respiratory Rate 15 18 20 Blood Pressure 118/61 123/65 121/59 L Pulse Oximetry 100 100 99 08/31/18 21:00 08/31/18 21:02 08/31/18 21:08 Temperature Pulse Rate 105 H 104 H Respiratory Rate 21 16 33 H Blood Pressure 121/58 L 230/100 H Pulse Oximetry 100 100 08/31/18 21:11 08/31/18 21:17 08/31/18 21:59 Temperature Pulse Rate 90 90 Respiratory Rate 15 Blood Pressure 211/95 H 204/84 H Pulse Oximetry 99 100 99 08/31/18 22:00 08/31/18 22:56 08/31/18 23:00 Temperature Pulse Rate 101 H 90 107 H Respiratory Rate 18 16 35 H Blood Pressure 101/50 L 220/95 H 128/71 Pulse Oximetry 100 98 100 08/31/18 23:19 08/31/18 23:30 08/31/18 23:43 Temperature Pulse Rate 92 H 92 H 109 H Respiratory Rate 25 H 21 13 Blood Pressure 195/88 H 201/93 H 225/101 H Pulse Oximetry 97 98 100 09/01/18 00:00 09/01/18 00:30 09/01/18 01:00 Temperature 99.3 F Pulse Rate 94 H 96 H 92 H Respiratory Rate 14 13 15 Blood Pressure 203/91 H 199/91 H 184/83 H Pulse Oximetry 96 96 96 09/01/18 01:30 09/01/18 02:00 09/01/18 02:30 Temperature Pulse Rate 94 H 112 H 92 H Respiratory Rate 15 40 H 14 Blood Pressure 188/88 H 164/90 H 202/93 H Pulse Oximetry 98 100 99 09/01/18 03:00 09/01/18 03:44 09/01/18 04:00 Temperature Pulse Rate 92 H 116 H 115 H Respiratory Rate 15 12 17 Blood Pressure 156/91 H 195/82 H 167/92 H Pulse Oximetry 100 100 09/01/18 04:09 09/01/18 04:24 09/01/18 04:30 Temperature Pulse Rate 90 88 88 Respiratory Rate 12 11 L 18 Blood Pressure 157/73 H 157/72 H 148/84 H Pulse Oximetry 96 96 95 09/01/18 04:44 09/01/18 05:00 09/01/18 06:00 Temperature Pulse Rate 86 109 H 106 H Respiratory Rate 12 15 13 Blood Pressure 161/68 H 173/92 H 159/91 H Pulse Oximetry 95 100 100 09/01/18 08:00 Temperature Pulse Rate Respiratory Rate Blood Pressure Pulse Oximetry 99 Intake & Output 08/31/18 09/01/18 09/01/18 18:59 06:59 18:59 Intake Total 350 / 350 1810 / 1810 Output Total 1999 0 / 0 Balance -1650 / -1650 1810 / 1810 Weight 58.967 kg 58.967 kg Intake: IV 350 / 350 300 / 300 Zosyn 4.5 GM Premix 4.5 gm In 100 / 100 300 / 300 100 ml @ 200 mls/hr IV.SIG Q6H DENEEN Rx#:[id number] Vancomycin Inj 1,000 MG In NS 250 / 250 Inj 250 ML @ 250 mls/hr IV.SIG STAT STA Rx#:[id number] Oral 1160 / 1160 Other 350 / 350 Output: Urine 0 / 0 Hemodialysis Amount 1999 Other: Other Intake Source Saline Solution Narrative: GENERAL: Alert and oriented. SKIN: Warm and dry. NECK: Supple, trachea midline. No JVD. CARDIOVASCULAR: Regular rate and rhythm without murmurs, gallops, or rubs. Perma cath right IJ RESPIRATORY: Breath sounds equal bilaterally. No accessory muscle use. GASTROINTESTINAL: Abdomen soft, non-tender, nondistended. MUSCULOSKELETAL: No cyanosis, or edema. BACK: Nontender without obvious deformity. No CVA tenderness. <Ariadna Fraire - Last Filed: 09/01/18 15:53> Vital signs: Vital Signs 09/01/18 22:00 09/01/18 22:11 09/01/18 23:00 Temperature Pulse Rate 102 H 102 H 101 H Respiratory Rate 19 31 H 14 Blood Pressure 149/83 H Pulse Oximetry 97 95 97 09/01/18 23:46 09/01/18 23:47 09/02/18 00:00 Temperature 99.3 F Pulse Rate 101 H 101 H 98 H Respiratory Rate 29 H 35 H 21 Blood Pressure 156/100 H 162/104 H Pulse Oximetry 100 100 100 09/02/18 00:50 09/02/18 01:00 09/02/18 02:00 Temperature Pulse Rate 108 H 104 H 109 H Respiratory Rate 9 L 24 16 Blood Pressure 155/88 H 147/88 H Pulse Oximetry 100 100 100 09/02/18 02:13 09/02/18 03:00 09/02/18 04:00 Temperature 98.9 F Pulse Rate 122 H 113 H 119 H Respiratory Rate 25 H 16 Blood Pressure 153/89 H 145/87 H 177/98 H Pulse Oximetry 99 100 100 09/02/18 05:00 09/02/18 06:00 09/02/18 07:00 Temperature Pulse Rate 119 H 117 H 111 H Respiratory Rate 14 15 14 Blood Pressure 152/94 H 140/72 122/59 L Pulse Oximetry 100 100 100 09/02/18 08:00 09/02/18 09:00 09/02/18 10:00 Temperature 98.7 F Pulse Rate 112 H 113 H 106 H Respiratory Rate 13 21 13 Blood Pressure 125/60 138/69 124/59 L Pulse Oximetry 100 100 100 09/02/18 11:00 09/02/18 12:00 09/02/18 12:05 Temperature 98.4 F Pulse Rate 108 H 112 H 110 H Respiratory Rate 14 28 H 30 H Blood Pressure 155/87 H 194/107 H 160/82 H Pulse Oximetry 99 100 100 Intake & Output 09/02/18 09/02/18 09/03/18 06:59 18:59 06:59 Intake Total 870 / 870 300 / 300 50 / 50 Output Total 400 / 400 1505 / 1505 Balance 470 / 470 -1205 / -1205 50 / 50 Weight 58.967 kg Intake: IV 150 / 150 300 / 300 50 / 50 Zosyn 2.25 GM Premix 2.25 gm In 150 / 150 50 / 50 50 / 50 50 ml @ 100 mls/hr IV.SIG Q6H DENEEN Rx#:[id number] Vancomycin Inj 1,000 MG In NS 250 / 250 Inj 250 ML @ 250 mls/hr IV.SIG ONCE ONE Rx#:[id number] Oral 720 / 720 Output: Urine 0 / 0 5 / 5 Emesis 400 / 400 Hemodialysis Amount 1500 / 1500 Other: Date of Last Bowel Movement 09/01/18 09/02/18 # Bowel Movements 1 # Emeses 4 <Tom Elise - Last Filed: 09/02/18 21:10> Assessment and Plan - Assessment (1) End-stage renal disease on hemodialysis Code(s): N18.6 - End stage renal disease; Z99.2 - Dependence on renal dialysis Status: Acute Plan: End stage renal disease on Hemodialysis on Wednesday, and Wednesday Right IJ permacath Avoid IVF administration. HD yesterday tolerated well with removal of 2 liters of fluid HD planned for tomorrow. (2) Hypertension Code(s): I10 - Essential (primary) hypertension Status: Acute Plan: Has improved. Continue Home medications, PRN available. (3) Insulin dependent diabetes mellitus Code(s): E11.9 - Type 2 diabetes mellitus without complications; Z79.4 - terminal supervisor (current) use of insulin Status: Acute Plan: Recommend to maintain blood sugar between 140 mg/dl to 180 mg/dl while hospitalized. Has been elevated. (4) Nausea & vomiting Code(s): R11.2 - Nausea with vomiting, unspecified Status: Acute Plan: Zofran PRN. (5) Influenza A Code(s): J10.1 - Influenza due to other identified influenza virus with other respiratory manifestations Status: Acute Plan: Tamiflu will be given. <Ariadna Fraire - Last Filed: 09/01/18 15:53> - Assessment (1) End-stage renal disease on hemodialysis Code(s): N18.6 - End stage renal disease; Z99.2 - Dependence on renal dialysis Status: Acute Plan: Patient seen and examined, agree with above. HD will be in AM. Follow BS. Continue antibiotics, follow the culture results. (2) Hypertension Code(s): I10 - Essential (primary) hypertension Status: Acute (3) Insulin dependent diabetes mellitus Code(s): E11.9 - Type 2 diabetes mellitus without complications; Z79.4 - FDC (current) use of insulin Status: Acute (4) Nausea & vomiting Code(s): R11.2 - Nausea with vomiting, unspecified Status: Acute (5) Influenza A Code(s): J10.1 - Influenza due to other identified influenza virus with other respiratory manifestations Status: Acute <Tom Elise - Last Filed: 09/02/18 21:10>
[2018-09-01] MEDS: Piperacil/Tazo 2.25 GM Premix 2.25 GM/50 ML PIGGYBACK IV.SIG SCH ×2 (17:34→22:13)
[2018-09-01] MEDS: hydrALAZINE 50 MG Tablet PO SCH (18:38)
[2018-09-02] MEDS: Acetaminophen 325 MG Tablet PO PRN (01:00)
[2018-09-02] MEDS: Piperacil/Tazo 2.25 GM Premix 2.25 GM/50 ML PIGGYBACK IV.SIG SCH ×4 (05:28→22:29)
[2018-09-02 07:45] LABS: Baso # (Auto) 0.1 th/mm3 (0.0-0.2); Baso % (Auto) 0.8 % (0.0-2.0); Eos # (Auto) 0.1 th/mm3 (0.0-0.4); Eos % (Auto) 0.6 % (0.0-4.0); Hematocrit 33.7 % (39.0-51.0); Lymph # (Auto) 0.4 th/mm3 (1.0-4.8); Lymph % (Auto) 2.8 % (9.0-44.0); Mean Corpuscular HGB Conc 32.7 % (32.0-36.0); Mean Corpuscular Hemoglobin 25.4 pg (27.0-34.0); Mean Corpuscular Volume 77.7 fL (80.0-100.0); Mean Platelet Volume 9.9 fL (7.0-11.0); Mono # (Auto) 0.9 th/mm3 (0.0-0.9); Neut # (Auto) 13.6 th/mm3 (1.8-7.7); Neut % (Auto) 89.8 % (16.0-70.0); Platelet Count 346 th/mm3 (150-450); Red Blood Count 4.33 mil/mm3 (4.50-5.90); Red Cell Distribution Width 21.9 % (11.6-17.2); White Blood Count 15.2 th/mm3 (4.0-11.0)
[2018-09-02] MEDS ORDERED: hydrALAZINE HCl Inj 20 MG/ML Vial IV.PUSH PRN (08:11)
[2018-09-02 08:17] LABS: Ovalocytes 3+
[2018-09-02 08:18] LABS: Platelet Estimate Normal (Normal); Platelet Morphology Normal (Normal); Tear Drop Cells 1+
[2018-09-02] MEDS: Insulin NovoLOG Aspart Correctional Sugar Inj SQ SCH ×4 (08:42→22:28)
[2018-09-02] MEDS: Calcium Acetate 667 MG Capsule PO SCH ×3 (08:43→19:10)
[2018-09-02] MEDS: Minoxidil 10 MG Tablet PO SCH ×2 (08:43→22:29)
[2018-09-02] MEDS: Folic Acid 1 MG Tablet PO SCH (08:44)
[2018-09-02] MEDS: Oseltamivir Phosphate 30 MG Capsule PO SCH (08:44)
[2018-09-02] MEDS: hydrALAZINE 50 MG Tablet PO SCH ×3 (08:44→19:11)
--- NOTE | 2018-09-02 09:41 | P.PNIM ---
Subjective Interval history: Patient says his cough is improving. No other complaints from the patient today. Physical Exam Vital signs: Vital Signs 09/01/18 10:00 09/01/18 10:10 09/01/18 11:00 Temperature Pulse Rate 97 H 99 H 97 H Respiratory Rate 25 H 16 21 Blood Pressure 171/104 H 171/104 H 123/70 Pulse Oximetry 100 100 96 09/01/18 12:00 09/01/18 13:00 09/01/18 14:00 Temperature Pulse Rate 96 H 100 H 102 H Respiratory Rate 0 L 19 7 L Blood Pressure 122/70 131/73 136/79 Pulse Oximetry 100 100 100 09/01/18 15:00 09/01/18 16:00 09/01/18 17:32 Temperature Pulse Rate 99 H 101 H 97 H Respiratory Rate 23 19 17 Blood Pressure 131/73 144/81 H 114/58 L Pulse Oximetry 100 99 99 09/01/18 18:00 09/01/18 19:00 09/01/18 20:00 Temperature 99.7 F H Pulse Rate 97 H 102 H 104 H Respiratory Rate 16 17 16 Blood Pressure 132/72 149/87 H 122/64 Pulse Oximetry 100 100 94 L 09/01/18 21:00 09/01/18 21:05 09/01/18 22:00 Temperature Pulse Rate 100 H 100 H 102 H Respiratory Rate 15 22 19 Blood Pressure 124/70 Pulse Oximetry 93 L 93 L 97 09/01/18 22:11 09/01/18 23:00 09/01/18 23:46 Temperature Pulse Rate 102 H 101 H 101 H Respiratory Rate 31 H 14 29 H Blood Pressure 149/83 H 156/100 H Pulse Oximetry 95 97 100 09/01/18 23:47 09/02/18 00:00 09/02/18 00:50 Temperature 99.3 F Pulse Rate 101 H 98 H 108 H Respiratory Rate 35 H 21 9 L Blood Pressure 162/104 H 155/88 H Pulse Oximetry 100 100 100 09/02/18 01:00 09/02/18 02:00 09/02/18 02:13 Temperature Pulse Rate 104 H 109 H 122 H Respiratory Rate 24 16 25 H Blood Pressure 147/88 H 153/89 H Pulse Oximetry 100 100 99 09/02/18 03:00 09/02/18 04:00 09/02/18 06:00 Temperature 98.9 F Pulse Rate 113 H 119 H 116 H Respiratory Rate 16 Blood Pressure 145/87 H 177/98 H Pulse Oximetry 100 100 Intake & Output 09/01/18 09/02/18 09/02/18 18:59 06:59 18:59 Intake Total 870 / 870 Output Total 3 / 3 400 / 400 Balance -3 / -3 470 / 470 Weight 58.967 kg Intake: IV 150 / 150 Zosyn 2.25 GM Premix 2.25 gm In 150 / 150 50 ml @ 100 mls/hr IV.SIG Q6H [facility] Rx#:[id number] Oral 720 / 720 Output: Urine 3 / 3 0 / 0 Emesis 400 / 400 Other: Date of Last Bowel Movement 09/01/18 09/01/18 # Emeses 4 Narrative: General patient says his cough is improving HEENT extraocular movements are intact, clear oropharyngeal mucosa Cardiovascular S1-S2 audible, right chest tdc in place. Respiratory minimal rhonchi bilaterally Abdomen soft, nontender, nondistended, normal bowel sounds Extremities no edema Neuro patient moves all 4 extremities, sensation is intact bilaterally Results - Labs CBC & Chem 7: 09/02/18 06:43 09/01/18 05:58 Laboratory Results - last 24 hr 09/01/18 09/01/18 09/01/18 09:39 13:21 13:23 WBC RBC Hgb Hct MCV MCH MCHC RDW Plt Count MPV Prelim Diff (Auto) Neut % (Auto) Lymph % (Auto) Merrick % (Auto) Eos % (Auto) Baso % (Auto) Neut # (Auto) Lymph # (Auto) Merrick # (Auto) Eos # (Auto) Baso # (Auto) WBC Differential Diff Scan Differential Comment Platelet Estimate Platelet Morphology Tear Drop Cells Ovalocytes Keratocytes POC Glucose 206 H 404 H 406 H 09/01/18 09/01/18 09/01/18 15:24 18:33 21:08 WBC RBC Hgb Hct MCV MCH MCHC RDW Plt Count MPV Prelim Diff (Auto) Neut % (Auto) Lymph % (Auto) Merrick % (Auto) Eos % (Auto) Baso % (Auto) Neut # (Auto) Lymph # (Auto) Merrick # (Auto) Eos # (Auto) Baso # (Auto) WBC Differential Diff Scan Differential Comment Platelet Estimate Platelet Morphology Tear Drop Cells Ovalocytes Keratocytes POC Glucose 313 H 340 H 238 H 09/02/18 09/02/18 09/02/18 06:43 07:39 07:41 WBC 15.2 H RBC 4.33 L Hgb 11.0 L Hct 33.7 L MCV 77.7 L MCH 25.4 L MCHC 32.7 RDW 21.9 H D Plt Count 346 D MPV 9.9 Prelim Diff (Auto) Slide review pending Neut % (Auto) 89.8 H Lymph % (Auto) 2.8 L Merrick % (Auto) 6.0 Eos % (Auto) 0.6 Baso % (Auto) 0.8 Neut # (Auto) 13.6 H Lymph # (Auto) 0.4 L Merrick # (Auto) 0.9 Eos # (Auto) 0.1 Baso # (Auto) 0.1 WBC Differential . Diff Scan Auto diff confirmed Differential Comment . Platelet Estimate Normal Platelet Morphology Normal Tear Drop Cells 1+ H Ovalocytes 3+ H Keratocytes Occ H POC Glucose 474 H* 460 H* Microbiology 08/31/18 20:35 Sputum - Expectorated Sputum Gram Stain - Final 08/31/18 20:35 Sputum - Expectorated Sputum Sputum Culture - Preliminary 08/31/18 08:40 Blood - Peripheral Aerobic Blood Culture - Preliminary No growth in 1 day 08/31/18 08:40 Blood - Peripheral Anaerobic Blood Culture - Preliminary No growth in 1 day 08/31/18 08:40 Blood - Peripheral Aerobic Blood Culture - Preliminary No growth in 1 day 08/31/18 08:40 Blood - Peripheral Anaerobic Blood Culture - Preliminary No growth in 1 day 08/31/18 20:20 Urine - Clean Catch Urine Legionella Antigen - Final Presumptive negative for Legionella pneumophila serogroup 1 antigen in urine, suggesting no recent or recurrent infection. Infection due to Legionella cannot be ruled out since other serogroups and species may cause disease, antigen may not be present in urine in early infection, and the level of antigen present in the urine may be below the detection limit of the test. Assessment and Plan - Assessment (1) End-stage renal disease on hemodialysis Code(s): N18.6 - End stage renal disease; Z99.2 - Dependence on renal dialysis Status: Acute (2) Hypertension Code(s): I10 - Essential (primary) hypertension Status: Acute (3) Insulin dependent diabetes mellitus Code(s): E11.9 - Type 2 diabetes mellitus without complications; Z79.4 - snf (current) use of insulin Status: Acute (4) Nausea & vomiting Code(s): R11.2 - Nausea with vomiting, unspecified Status: Acute (5) Influenza A Code(s): J10.1 - Influenza due to other identified influenza virus with other respiratory manifestations Status: Acute - Plan This patient is a 28-year-old male with a diagnosis of end-stage renal disease on hemodialysis Wednesday and Wednesday, insulin-dependent diabetes, hypertension, and visual impairment. The patient was sent to our emergency department from the hemodialysis clinic with complaints of nausea and vomiting. In the emergency department the patient was evaluated and found to be febrile , he also had a significant leukocytosis, was tachycardic, and had a significantly elevated blood pressure. He was admitted to the intensive care unit for hypertensive crisis and found to be positive for influenza. 1. Sepsis secondary to influenza and community acquired pneumonia 2. Acute hypoxic Respiratory failure secondary to #1 No fevers overnight. Patient still on supplemental oxygen, Oxygen sats above 92% will wean off of O2. WBC count elevated, downtrending. Continue IV antibiotics. Continue Tamiflu. 3. Uncontrolled hypertension Nausea and vomiting has improved. His nausea and vomiting has improved. We will continue to monitor his blood pressure closely. Blood pressure medications adjusted today. 4. End-stage renal disease on hemodialysis Patient scheduled for HD today. His chocolate finisher operator is Dr. Elise. 5. Insulin dependent diabetes. Blood sugars currently have been running around 170 yesterday but jumped into the 400s today. Patient started on his basal insulin regimen. Continue sliding scale. We will continue monitor his blood sugars closely and adjust his diabetes regimen as needed. Patient will be transferred out of the ICU today. No pharmacal therapy for DVT prophylaxis. The patient is ambulatory.
--- NOTE | 2018-09-02 13:02 | P.PNNP ---
Subjective Interval history: Patient is alert, no SOB, vomited in AM, now feeling better. Physical Exam Vital signs: Vital Signs 09/01/18 14:00 09/01/18 15:00 09/01/18 16:00 Temperature Pulse Rate 102 H 99 H 101 H Respiratory Rate 7 L 23 19 Blood Pressure 136/79 131/73 144/81 H Pulse Oximetry 100 100 99 09/01/18 17:32 09/01/18 18:00 09/01/18 19:00 Temperature Pulse Rate 97 H 97 H 102 H Respiratory Rate 17 16 17 Blood Pressure 114/58 L 132/72 149/87 H Pulse Oximetry 99 100 100 09/01/18 20:00 09/01/18 21:00 09/01/18 21:05 Temperature 99.7 F H Pulse Rate 104 H 100 H 100 H Respiratory Rate 16 15 22 Blood Pressure 122/64 124/70 Pulse Oximetry 94 L 93 L 93 L 09/01/18 22:00 09/01/18 22:11 09/01/18 23:00 Temperature Pulse Rate 102 H 102 H 101 H Respiratory Rate 19 31 H 14 Blood Pressure 149/83 H Pulse Oximetry 97 95 97 09/01/18 23:46 09/01/18 23:47 09/02/18 00:00 Temperature 99.3 F Pulse Rate 101 H 101 H 98 H Respiratory Rate 29 H 35 H 21 Blood Pressure 156/100 H 162/104 H Pulse Oximetry 100 100 100 09/02/18 00:50 09/02/18 01:00 09/02/18 02:00 Temperature Pulse Rate 108 H 104 H 109 H Respiratory Rate 9 L 24 16 Blood Pressure 155/88 H 147/88 H Pulse Oximetry 100 100 100 09/02/18 02:13 09/02/18 03:00 09/02/18 04:00 Temperature 98.9 F Pulse Rate 122 H 113 H 119 H Respiratory Rate 25 H 16 Blood Pressure 153/89 H 145/87 H 177/98 H Pulse Oximetry 99 100 100 09/02/18 05:00 09/02/18 06:00 09/02/18 07:00 Temperature Pulse Rate 119 H 117 H 111 H Respiratory Rate 14 15 14 Blood Pressure 152/94 H 140/72 122/59 L Pulse Oximetry 100 100 100 09/02/18 08:00 09/02/18 09:00 09/02/18 10:00 Temperature 98.7 F Pulse Rate 112 H 113 H 106 H Respiratory Rate 13 21 13 Blood Pressure 125/60 138/69 124/59 L Pulse Oximetry 100 100 100 09/02/18 11:00 09/02/18 12:00 09/02/18 12:05 Temperature 98.4 F Pulse Rate 108 H 112 H 110 H Respiratory Rate 14 28 H 30 H Blood Pressure 155/87 H 194/107 H 160/82 H Pulse Oximetry 99 100 100 Intake & Output 09/01/18 09/02/18 09/02/18 18:59 06:59 18:59 Intake Total 870 / 870 50 / 50 Output Total 3 / 3 400 / 400 5 / 5 Balance -3 / -3 470 / 470 45 / 45 Weight 58.967 kg Intake: IV 150 / 150 50 / 50 Zosyn 2.25 GM Premix 2.25 gm In 150 / 150 50 / 50 50 ml @ 100 mls/hr IV.SIG Q6H [facility] Rx#:[id number] Oral 720 / 720 Output: Urine 3 / 3 0 / 0 5 / 5 Emesis 400 / 400 Other: Date of Last Bowel Movement 09/01/18 09/01/18 09/02/18 # Bowel Movements 1 # Emeses 4 Narrative: General patient says his cough is improving HEENT extraocular movements are intact, clear oropharyngeal mucosa Cardiovascular S1-S2 audible, right chest tdc in place. Respiratory minimal rhonchi bilaterally Abdomen soft, nontender, nondistended, normal bowel sounds Extremities no edema Neuro patient moves all 4 extremities, sensation is intact bilaterally Assessment and Plan - Assessment (1) End-stage renal disease on hemodialysis Code(s): N18.6 - End stage renal disease; Z99.2 - Dependence on renal dialysis Status: Acute Plan: Patient with end stage renal disease. Now admitted with SOB, cough and chills. Blood cultures negative so far. Continue antibiotics, and follow the cultures. HD will be done today in the afternoon. (2) Hypertension Code(s): I10 - Essential (primary) hypertension Status: Acute Plan: Has improved. Continue Home medications, PRN available. (3) Insulin dependent diabetes mellitus Code(s): E11.9 - Type 2 diabetes mellitus without complications; Z79.4 - [facility] (current) use of insulin Status: Acute Plan: Recommend to maintain blood sugar between 140 mg/dl to 180 mg/dl while hospitalized. Has been elevated. (4) Nausea & vomiting Code(s): R11.2 - Nausea with vomiting, unspecified Status: Acute Plan: Zofran PRN. (5) Influenza A Code(s): J10.1 - Influenza due to other identified influenza virus with other respiratory manifestations Status: Acute Plan: Tamiflu will be given.
[2018-09-02] MEDS ORDERED: Vancomycin Inj 1,000 MG in Sodium Chlor 0.9% Inj 250 ML IV.SIG ONE (15:00)
[2018-09-03] MEDS: Piperacil/Tazo 2.25 GM Premix 2.25 GM/50 ML PIGGYBACK IV.SIG SCH ×2 (06:18→12:11)
[2018-09-03] MEDS: Insulin NovoLOG Aspart Correctional Sugar Inj SQ SCH (08:23)
[2018-09-03] MEDS: Calcium Acetate 667 MG Capsule PO SCH (08:26)
[2018-09-03] MEDS: Minoxidil 10 MG Tablet PO SCH (08:27)
[2018-09-03] MEDS: hydrALAZINE 50 MG Tablet PO SCH (08:27)
[2018-09-03] MEDS: Oseltamivir Phosphate 30 MG Capsule PO SCH (08:27)
[2018-09-03] MEDS: Folic Acid 1 MG Tablet PO SCH (08:27)
--- NOTE | 2018-09-03 10:14 | P.DS ---
Date of admission: 08/31/18 10:51 Primary care physician: No Primary Care Physician Brief History from admission: 28-year-old male with history of end-stage renal disease on hemodialysis, insulin requiring diabetes mellitus, hypertension and visual impairment. Patient was sent from the dialysis clinic because of GI symptoms for the past 24 hours. He complains of nausea, vomiting, productive cough of whitish phlegm , chills and weakness. States last time he had similar symptoms he was diagnosed with pneumonia. Chest x-ray independent reviewed by me with changes suggestive of left base pneumonia. Patient was found to have the flu, as well as uncontrolled hypertension. DS: Diagnosis - Discharge Diagnosis (1) End-stage renal disease on hemodialysis Status: Acute (2) Hypertension Status: Acute (3) Insulin dependent diabetes mellitus Status: Acute (4) Nausea & vomiting Status: Acute (5) Influenza A Status: Acute DS: Medications - Discharge Medications Prescriptions: levofloxacin [Levaquin] 750 mg PO DAILY #2 tab DS: Summary Hospital Course: This patient is a 28-year-old male with a diagnosis of end-stage renal disease on hemodialysis Wednesday and Wednesday, insulin-dependent diabetes, hypertension, and visual impairment. The patient was sent to our emergency department from the hemodialysis clinic with complaints of nausea and vomiting. In the emergency department the patient was evaluated and found to be febrile , he also had a significant leukocytosis, was tachycardic, and had a significantly elevated blood pressure. He was admitted to the intensive care unit for hypertensive crisis and found to be positive for influenza. 1. Sepsis secondary to influenza and community acquired pneumonia 2. Acute hypoxic Respiratory failure secondary to #1 The patient was admitted and found to have elevated WBC count and was tachycardic. Blood cultures are negative. Influenza swab was positive. The patient was started on Tamiflu and has finished his treatment of Tamiflu while in house. Chest x-ray showed questionable pneumonia. The patient received IV antibiotics throughout his hospitalization. He will be discharged on 2 more days of Levaquin p.o. He was titrated off of supplemental oxygen and is now on room air without any complaints of shortness of breath. The patient will be discharged home today. 3. Uncontrolled hypertension The patient also had elevated blood pressure during his hospitalization. Prior to admission the patient was having nausea and vomiting and was unable to tolerate any p.o. medications. Initially he was on IV blood pressure medications. His blood pressure is now under control will be discharged home today. He can continue to monitor his blood pressure while at home and he should follow-up his primary care doctor in 1 week and his blood pressure medications can be adjusted if needed. I had a discussion with the patient as well as his mother who helps with his medications. She was advised to take his blood pressure at home and log it in a blood pressure chart, this way his primary care doctor will have a better idea of how his blood pressure is running well at home. 4. End-stage renal disease on hemodialysis Continue hemodialysis on Wednesday and Wednesday. Patient's last hemodialysis was yesterday. 5. Insulin dependent diabetes. Continue home dose of insulin. To me with a diabetic diet. Follow-up with your primary care doctor for further management. - Time Spent with Patient Total time spent providing and/or coordinating discharge services: Greater than 30 minutes - Quality: VTE Deep Vein Thrombosis/Pulmonary Embolism Present on Admission: No Exam Vital signs: Vital Signs 09/02/18 11:00 09/02/18 12:00 09/02/18 12:05 Temperature 98.4 F Pulse Rate 108 H 112 H 110 H Respiratory Rate 14 28 H 30 H Blood Pressure 155/87 H 194/107 H 160/82 H Pulse Oximetry 99 100 100 09/02/18 20:00 09/03/18 00:00 09/03/18 04:00 Temperature 98.4 F 98.3 F 98.8 F Pulse Rate 117 H 102 H 115 H Respiratory Rate 16 16 16 Blood Pressure 155/80 H 137/77 170/96 H Pulse Oximetry 91 L 98 94 L 09/03/18 08:00 Temperature 98.4 F Pulse Rate 92 H Respiratory Rate 16 Blood Pressure 128/75 Pulse Oximetry 95 Intake & Output 09/02/18 09/03/18 09/03/18 18:59 06:59 18:59 Intake Total 300 / 300 630 / 630 Output Total 1505 / 1505 Balance -1205 / -1205 630 / 630 Weight 55 kg Intake: IV 300 / 300 150 / 150 Zosyn 2.25 GM Premix 2.25 gm In 50 / 50 150 / 150 50 ml @ 100 mls/hr IV.SIG Q6H [facility] Rx#:[id number] Vancomycin Inj 1,000 MG In NS 250 / 250 Inj 250 ML @ 250 mls/hr IV.SIG ONCE ONE Rx#:[id number] Oral 480 / 480 Output: Urine 5 / 5 Hemodialysis Amount 1500 / 1500 Other: # Voids 0 Date of Last Bowel Movement 09/02/18 09/01/18 # Bowel Movements 1 1 Narrative: General patient says his cough has improved HEENT extraocular movements are intact, clear oropharyngeal mucosa Cardiovascular S1-S2 audible, right chest tdc in place. Respiratory minimal rhonchi bilaterally Abdomen soft, nontender, nondistended, normal bowel sounds Extremities no edema Neuro patient moves all 4 extremities, sensation is intact bilaterally Results Procedures completed during hospitalization: None Labs on day of discharge: Labs from last 24 hours 09/03/18 09/02/18 09/02/18 07:48 22:21 16:51 POC Glucose 92 197 H 151 H 09/02/18 09/02/18 11:51 10:23 POC Glucose 318 H 385 H Preliminary micro results at discharge 08/31/18 08:40 Aerobic Blood Culture - Preliminary Blood - Peripheral No growth in 2 days Anaerobic Blood Culture - Preliminary No growth in 2 days 08/31/18 08:40 Aerobic Blood Culture - Preliminary Blood - Peripheral No growth in 2 days Anaerobic Blood Culture - Preliminary No growth in 2 days - Impressions ITS Impressions Chest X-Ray 08/31/18 08:38 CONCLUSION: Minimal consolidative changes left base suspicious for inflammatory process. Mild interstitial edema. Discharge Plan - Discharge Disposition Patient Disposition: 01 Discharge Home - Discharge Condition Condition: Good - Discharge Order Discharge Orders: Discharge Order (Routine); Ordered 09/03/18 Ordered By: Tico Minor - Physicians Team Primary Care Provider: Primary Care Mariela Lanza Attending Provider: Tico Minor Other Providers: Tom Elise MD
--- NOTE | 2018-09-03 13:04 | P.PNNP ---
Subjective Interval history: Discharge home today. No complaints. <Ariadna Fraire - Last Filed: 09/03/18 13:01> Physical Exam Vital signs: Vital Signs 09/02/18 20:00 09/03/18 00:00 09/03/18 04:00 Temperature 98.4 F 98.3 F 98.8 F Pulse Rate 117 H 102 H 115 H Respiratory Rate 16 16 16 Blood Pressure 155/80 H 137/77 170/96 H Pulse Oximetry 91 L 98 94 L 09/03/18 08:00 09/03/18 10:08 Temperature 98.4 F Pulse Rate 92 H Respiratory Rate 16 Blood Pressure 128/75 Pulse Oximetry 95 95 Intake & Output 09/02/18 09/03/18 09/03/18 18:59 06:59 18:59 Intake Total 300 / 300 630 / 630 Output Total 1505 / 1505 Balance -1205 / -1205 630 / 630 Weight 55 kg Intake: IV 300 / 300 150 / 150 Zosyn 2.25 GM Premix 2.25 gm In 50 / 50 150 / 150 50 ml @ 100 mls/hr IV.SIG Q6H [facility] Rx#:[id number] Vancomycin Inj 1,000 MG In NS 250 / 250 Inj 250 ML @ 250 mls/hr IV.SIG ONCE ONE Rx#:[id number] Oral 480 / 480 Output: Urine 5 / 5 Hemodialysis Amount 1500 / 1500 Other: # Voids 0 Date of Last Bowel Movement 09/02/18 09/01/18 # Bowel Movements 1 1 Narrative: GENERAL: Alert and oriented. SKIN: Warm and dry. NECK: Supple, trachea midline. No JVD. CARDIOVASCULAR: Regular rate and rhythm without murmurs, gallops, or rubs. right chest wall permacath RESPIRATORY: Breath sounds equal bilaterally. No accessory muscle use. GASTROINTESTINAL: Abdomen soft, non-tender, nondistended. MUSCULOSKELETAL: No cyanosis, or edema. BACK: Nontender without obvious deformity. No CVA tenderness. <Ariadna Fraire - Last Filed: 09/03/18 13:01> Vital signs: Vital Signs 09/03/18 00:00 09/03/18 04:00 09/03/18 08:00 Temperature 98.3 F 98.8 F 98.4 F Pulse Rate 102 H 115 H 92 H Respiratory Rate 16 16 16 Blood Pressure 137/77 170/96 H 128/75 Pulse Oximetry 98 94 L 95 09/03/18 10:08 Temperature Pulse Rate Respiratory Rate Blood Pressure Pulse Oximetry 95 Intake & Output 09/03/18 09/03/18 09/04/18 06:59 18:59 06:59 Intake Total 630 / 630 Balance 630 / 630 Weight 55 kg Intake: IV 150 / 150 Zosyn 2.25 GM Premix 2.25 gm In 150 / 150 50 ml @ 100 mls/hr IV.SIG Q6H [facility] Rx#:[id number] Oral 480 / 480 Other: # Voids 0 Date of Last Bowel Movement 09/01/18 # Bowel Movements 1 <Tom Elise - Last Filed: 09/03/18 21:11> Assessment and Plan - Assessment (1) End-stage renal disease on hemodialysis Code(s): N18.6 - End stage renal disease; Z99.2 - Dependence on renal dialysis Status: Acute Plan: ESRD on M/W/F HD yesterday tolerated well Hd next planned of Wednesday at [facility]. (2) Hypertension Code(s): I10 - Essential (primary) hypertension Status: Acute Plan: Has improved. Continue Home medications, PRN available. (3) Insulin dependent diabetes mellitus Code(s): E11.9 - Type 2 diabetes mellitus without complications; Z79.4 - assisted (current) use of insulin Status: Acute Plan: Recommend to maintain blood sugar between 140 mg/dl to 180 mg/dl while hospitalized. Has been elevated. (4) Nausea & vomiting Code(s): R11.2 - Nausea with vomiting, unspecified Status: Acute Plan: Zofran PRN. (5) Influenza A Code(s): J10.1 - Influenza due to other identified influenza virus with other respiratory manifestations Status: Acute Plan: Tamiflu given. <Ariadna Fraire - Last Filed: 09/03/18 13:01> - Assessment (1) End-stage renal disease on hemodialysis Code(s): N18.6 - End stage renal disease; Z99.2 - Dependence on renal dialysis Status: Acute Plan: Patient seen and examined, agree with above. Patient for discharge, to continue HD as out patient. (2) Hypertension Code(s): I10 - Essential (primary) hypertension Status: Acute (3) Insulin dependent diabetes mellitus Code(s): E11.9 - Type 2 diabetes mellitus without complications; Z79.4 - terminal operator (current) use of insulin Status: Acute (4) Nausea & vomiting Code(s): R11.2 - Nausea with vomiting, unspecified Status: Acute (5) Influenza A Code(s): J10.1 - Influenza due to other identified influenza virus with other respiratory manifestations Status: Acute <Tom Elise - Last Filed: 09/03/18 21:11>
== END 2018-09-03 12:10 | disposition home or self-care (01) ==
LOC: NEPC 08:28 → NEDA 10:51 → HIMC 16:20 → N04 09-02 13:56
PROVIDERS: ADMIT Hospitalist; ATTEND Hospitalist
DX: J96.01 Acute respiratory failure with hypoxia; A41.9 Sepsis, unspecified organism; N18.6 End stage renal disease; I12.0 Hypertensive chronic kidney disease with stage 5 chronic kidney disease or end stage renal disease; Z79.4 Long term (current) use of insulin; E11.22 Type 2 diabetes mellitus with diabetic chronic kidney disease; H54.7 Unspecified visual loss; E87.5 Hyperkalemia; I16.9 Hypertensive crisis, unspecified; J10.00 Influenza due to other identified influenza virus with unspecified type of pneumonia; Z99.2 Dependence on renal dialysis